=== PATIENT | male | born 1940 | race Caucasian/White ===

== ENCOUNTER → 2016-06-01 | Outpatient (CLI) | payer OTHER ==
[~2016-06-01] MED LIST: ACET-1311 PO; ALLO300T2 PO; ASPI81TA28 PO; CARB25TA12 PO; CHOL2000 PO; CLON0.5T3 PO; CMD5 PO; CYAN100020 PO; DOCU100C31 PO; GABA-113 PO; GLC/500 PO; LDDP5 TD; LSN25 PO; MCTP EXT; METO1TAB55 PO; ONDA4TAB46 PO; POLY1POW2 PO; SERT25TA PO; SNM/25100 PO; TRIA37.5 PO; TRIATAB3 PO; VLTG EXT; ZNTT/150 PO
[2016-06-01 19:53] LABS: BLOOD UREA NITROGEN 17 mg/dl (7-18); BUN/CREATININE RATIO 13.9 (10-20); CALCIUM 9.4 mg/dl (8.5-10.1); CARBON DIOXIDE 25 mmol/L (21-32); CHLORIDE 103 mmol/L (98-107); GLUCOSE 113 mg/dl (70-99); POTASSIUM 3.9 mmol/L (3.5-5.1); SODIUM 139 mmol/L (136-145); URIC ACID 4.6 mg/dl (2.6-7.2)
== END | disposition home or self-care (01) ==
LOC: C.LABPVFM 15:18
PROVIDERS: ATTEND Family Medicine
DX: M10.9 Gout, unspecified (principal)

== ENCOUNTER 2016-07-11 09:01 | Inpatient (IN) | payer OTHER ==
[~2016-07-11] VITALS: Ht 172.7 cm; Wt 99.6 kg
[~2016-07-11 09:01] MED LIST changes: -ACET-1311 PO; -ASPI81TA28 PO; -CARB25TA12 PO; -CHOL2000 PO; -CMD5 PO; -CYAN100020 PO; -LDDP5 TD; -LSN25 PO; -MCTP EXT; -METO1TAB55 PO; -ONDA4TAB46 PO; -POLY1POW2 PO; -SERT25TA PO; -SNM/25100 PO; -TRIATAB3 PO; -VLTG EXT; -ZNTT/150 PO
[2016-07-11] MEDS ORDERED: SODIUM CHLORIDE 0.9% 1000ML 1,000 ML IV SCH (09:27)
--- NOTE | 2016-07-11 09:47 | EMERGENCY ROOM VISIT NOTE ---
History Report prepared by Evelia: Shawn Mariscal Under the Supervision of: Dr. Gaurav Espana D.O. First contact with patient: 09:20 Chief Complaint: NEURO SYMPTOMS Stated Complaint: NUMBNESS IN LEGS,ARMS,HANDS, FALLS Nursing Triage Summary: pt reports since last night bilat leg weakness and feeling numb. pt reports last night also his arm were numb and weak but "my arms are getting better." History of Present Illness The patient is a 75 year old male who presents to the Emergency Room with complaints of worsening generalized weakness that started around 0230 last night. The patient's extremities are all weak, but his arms appear to be improving. The patient's daughter notes that his bilateral legs appear slightly more swollen. The patient denies any fevers, headaches, cough, chest pain, shortness of breath, nausea, vomiting, or abdominal pain. He has not had any recent illnesses. He denies any stroke history. The patient is normally able to ambulate, but was unable this morning secondary to weakness. He states that he has been eating and drinking okay. The patient appears to be at baseline mental status, as per daughter. She notes that he has had some falls recently. He has been going to PT since an accident in March with his last appointment being yesterday. 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 Source of History: patient, family Onset: 0230 last night Position: other (generalized) Quality: other (weakness) Timing: worsening Associated Symptoms: No SOB, No abdominal pain, No chest pain, No cough, No fevers, No headache, No nausea, No vomiting Review of Systems See HPI for pertinent positives & negatives. A total of 10 systems reviewed and were otherwise negative. Past Medical & Surgical Medical Problems: (1) BENIGN HYPERTENSION (2) DIAB W KETOACIDOSIS, TYPE II OR UNSPEC TYPE, UNCONTROLLED (3) DIVERTICULOSIS COLON (W/O MENT OF HEMORRHAGE) (4) GOUT NOS (5) IDIO PERIPH NEURPTHY NOS (6) MIXED HYPERLIPIDEMIA Family History Diabetes mellitus FH: breast cancer Social History Smoking Status: Former Smoker Alcohol Use: none Drug Use: none Marital Status: Housing Status: lives with significant other Occupation Status: retired Current/Historical Medications Scheduled Allopurinol (Zyloprim), 300 MG PO DAILY Aspirin (Aspirin Ec), 81 MG PO DAILY Cholecalciferol (Vitamin D3), 2,000 UNITS PO DAILY Gabapentin (Neurontin), 300 MG PO QID Metformin Hcl (Glucophage), 500 MG PO BID Polyethylene Glycol 3350 (Bulk (Polyethylene Glycol 3350), 17 GM PO BID Triamterene/Hctz (Dyazide 37.5MG/25MG), 0.5 TAB PO DAILY Scheduled PRN Clonazepam (Klonopin), 0.25-0.5 MG PO HS PRN for Sleep Allergies Coded Allergies: No Known Allergies (Verified , 07/11/16) Physical Exam Vital Signs Date Time Temp Pulse Resp B/P Pulse Ox O2 Delivery O2 Flow Rate FiO2 07/11/16 12:15 80 20 155/71 97 Room Air 07/11/16 11:39 97 Room Air 07/11/16 11:01 68 18 102/61 97 Room Air 07/11/16 10:09 79 20 126/67 95 Room Air 07/11/16 09:35 96 Room Air 07/11/16 09:29 86 07/11/16 09:22 83 20 137/69 96 Room Air 07/11/16 09:07 37.1 86 18 113/68 96 Room Air Physical Exam GENERAL: Patient is awake and somewhat listless appearing, does not appear to be in pain or anxious. EYES: The conjunctivae are clear. The pupils are round and reactive. EARS, NOSE, MOUTH AND THROAT: The nose is without any evidence of any deformity. Mucous membranes are moist tongue is midline NECK: The neck is nontender and supple. RESPIRATORY: Scattered rhonchi noted throughout, no tachypnea or pursed lip breathing. CARDIOVASCULAR: Regular rate and rhythm noted there no murmurs rubs or gallops normal S1 normal S2 GASTROINTESTINAL: The abdomen is soft. Bowel sounds are present in all quadrants. Abdomen is nontender MUSCULOSKELETAL/EXTREMITIES: There is no evidence of gross deformity full range of motion is noted in the hips and shoulders SKIN: There is no obvious evidence of any rash. There are no petechiae, pallor or cyanosis noted. Trace pedal edema bilaterally. NEUROLOGIC: Patient is oriented x 3, strength is diminished but symmetric bilaterally, no drift in upper extremities, able to hold legs off of bed for 5 seconds. Medical Decision & Procedures ER Provider Diagnostic Interpretation: Radiology results as stated below per my review and radiologist interpretation: CHEST ONE VIEW PORTABLE CLINICAL HISTORY: Stroke dyspnea COMPARISON STUDY: 07/09/2015 FINDINGS: Minimal atelectasis left base. Lungs otherwise appear clear. Heart top limits normal in size. IMPRESSION: Minimal platelike atelectasis left base. Otherwise negative study Electronically signed by: Tom Auguste M.D. 07/11/2016 10:20 AM Dictated Date/Time: 07/11/2016 10:[address] CT DOSE: 998.18 mGy.cm HISTORY: Mental status change Stroke TECHNIQUE: Multiaxial CT images of the head were performed without the use of intravenous contrast. Comparison: None. Findings: The paranasal sinuses and mastoid air cells are clear. The calvarium and skull base are intact. The ventricles and sulci are within normal limits. There is no mass, hematoma, midline shift, or acute infarct. Impression: No acute intracranial abnormality. Electronically signed by: Tom Auguste M.D. 07/11/2016 10:06 AM Dictated Date/Time: 07/11/2016 10:01 AM Laboratory Results 07/11/16 09:48 Red Blood Count 4.64, Mean Corpuscular Volume 92.7, Mean Corpuscular Hemoglobin 31.5, Mean Corpuscular Hemoglobin Concent 34.0, Mean Platelet Volume 10.4, Neutrophils (%) (Auto) 68.9, Lymphocytes (%) (Auto) 11.1, Monocytes (%) (Auto) 19.3, Eosinophils (%) (Auto) 0.2, Basophils (%) (Auto) 0.2, Neutrophils # (Auto ) 4.29, Lymphocytes # (Auto) 0.69, Monocytes # (Auto) 1.20, Eosinophils # (Auto ) 0.01, Basophils # (Auto) 0.01 07/11/16 09:48 Test 07/11/16 09:48 07/11/16 10:07 White Blood Count 6.22 K/uL (4.8-10.8) Red Blood Count 4.64 M/uL (4.7-6.1) Hemoglobin 14.6 g/dL (14.0-18.0) Hematocrit 43.0 % (42-52) Mean Corpuscular Volume 92.7 fL (80-100) Mean Corpuscular Hemoglobin 31.5 pg (25-34) Mean Corpuscular Hemoglobin Concent 34.0 g/dl (32-36) Platelet Count 184 K/uL (130-400) Mean Platelet Volume 10.4 fL (7.4-10.4) Neutrophils (%) (Auto) 68.9 % Lymphocytes (%) (Auto) 11.1 % Monocytes (%) (Auto) 19.3 % Eosinophils (%) (Auto) 0.2 % Basophils (%) (Auto) 0.2 % Neutrophils # (Auto) 4.29 K/uL (1.4-6.5) Lymphocytes # (Auto) 0.69 K/uL (1.2-3.4) Monocytes # (Auto) 1.20 K/uL (0.11-0.59) Eosinophils # (Auto) 0.01 K/uL (0-0.5) Basophils # (Auto) 0.01 K/uL (0-0.2) RDW Standard Deviation 46.6 fL (36.4-46.3) RDW Coefficient of Variation 13.7 % (11.5-14.5) Immature Granulocyte % (Auto) 0.3 % Immature Granulocyte # (Auto) 0.02 K/uL (0.00-0.02) Erythrocyte Sedimentation Rate 13 mm/hr (0-14) Prothrombin Time 11.9 SECONDS (9.0-12.0) Prothromb Time International Ratio 1.1 (0.9-1.1) Activated Partial Thromboplast Time 26.7 SECONDS (21.0-31.0) Partial Thromboplastin Ratio 1.0 Anion Gap 11.0 mmol/L (3-11) Est Creatinine Clear Calc Drug Dose 56.0 ml/min Estimated GFR () 61.9 Estimated GFR (Non- 53.4 BUN/Creatinine Ratio 10.1 (10-20) Calcium Level 8.8 mg/dl (8.5-10.1) Magnesium Level 1.9 mg/dl (1.8-2.4) Total Bilirubin 0.7 mg/dl (0.2-1) Direct Bilirubin 0.2 mg/dl (0-0.2) Aspartate Amino Transf (AST/SGOT) 56 U/L (15-37) Alanine Aminotransferase (ALT/SGPT) 24 U/L (12-78) Alkaline Phosphatase 99 U/L (45-117) Total Creatine Kinase 2844 U/L (39-308) Creatine Kinase MB 13.1 ng/ml (0.5-3.6) Creatine Kinase MB Ratio 0.5 (0-3.0) Troponin I < 0.015 ng/ml (0-0.045) C-Reactive Protein 0.87 mg/dl (0-0.29) Total Protein 7.2 gm/dl (6.4-8.2) Albumin 3.5 gm/dl (3.4-5.0) Urine Color YELLOW Urine Appearance CLEAR (CLEAR) Urine pH 6.0 (4.5-7.5) Urine Specific Lawn 1.007 (1.000-1.030) Urine Protein NEG (NEG) Urine Glucose (UA) NEG (NEG) Urine Ketones NEG (NEG) Urine Occult Blood 3+ (NEG) Urine Nitrite NEG (NEG) Urine Bilirubin NEG (NEG) Urine Urobilinogen NEG (NEG) Urine Leukocyte Esterase TRACE (NEG) Urine WBC (Auto) 1-5 /hpf (0-5) Urine RBC (Auto) 0-4 /hpf (0-4) Urine Hyaline Casts (Auto) 0 /lpf (0-5) Urine Epithelial Cells (Auto) 5-10 /lpf (0-5) Urine Bacteria (Auto) NEG (NEG) Urine Opiates Screen NEG (NEG) Urine Methadone, Qualitative NEG (NEG) Urine Barbiturates NEG (NEG) Urine Phencyclidine (PCP) Level NEG (NEG) Ur Amphetamine/Methamphetamine NEG (NEG) MDMA (Ecstasy) Screen NEG (NEG) Urine Benzodiazepines Screen NEG (NEG) Urine Cocaine Metabolite NEG (NEG) Urine Marijuana (THC) NEG (NEG) Laboratory results per my review. Medications Administered Medications (Trade) Dose Ordered Sig/[place] Route Start Time Stop Time Status Last Admin Dose Admin Sodium Chloride 1,000 ml @ 50 mls/hr Q20H IV 07/11/16 09:27 07/11/16 12:38 DC 07/11/16 10:11 50 MLS/HR Sodium Chloride 1,000 ml @ 999 mls/hr Q1H1M STAT IV 07/11/16 11:18 07/11/16 12:18 DC 07/11/16 11:24 999 MLS/HR Sodium Chloride (Nss 1000ml) 1,000 ml @ 125 mls/hr Q8H IV 07/11/16 12:30 08/10/16 12:29 07/11/16 14:44 125 MLS/HR ECG Indication: weakness Rate (beats per minute): 81 Rhythm: normal sinus Findings: no acute ischemic change, other (LVH noted by voltage criteria) Comparison ECG Date: 2015 Change: no significant change ED Course 09: The patient was evaluated in room B11b. A complete history and physical examination were performed. 09: NSS 1000 ml @ 50 mls/hr. 111: Discussed the [facility] The patient will be evaluated. 1118: NSS 1000 ml @ 999 mls/hr. 1121: Updated the patient. He verbalized agreement of the plan. Medical Decision Prior records/ancillary studies reviewed and summarized above. Nursing notes reviewed. Additional history obtained from daughter. The patient's history was concerning for weakness. Differential diagnosis: Etiologies such as metabolic, infection, hypo/hyperglycemia, electrolyte abnormalities, cardiac sources, intracerebral event, toxicologic, neurologic, as well as others were entertained. The patient is a 75-year-old male who presented to the emergency department for an evaluation of generalized weakness. The patient the patient did not have any definite focal neurologic deficits but he was certainly week in both lower extremities. The patient was not found have an acute abnormality on CT the head was found have elevated CPK consistent with rhabdomyolysis on laboratory studies. The patient was treated with IV fluids. He was reevaluated multiple times. I discussed the patient's laboratory and radiographic studies with him and his family. I also discussed his case with the on-call [facility] group. They have agreed to evaluate the patient in the emergency department for further management and disposition. Consults Time Called: 1111 Consulting Physician: Dr. [facility]. Returned Call: [phone]: Discussed the case with Dr[facility]. The patient will be evaluated. Impression Primary Impression: Weakness Additional Impression: Rhabdomyolysis Scribe Attestation The scribe's documentation has been prepared under my direction and personally reviewed by me in its entirety. I confirm that the note above accurately reflects all work, treatment, procedures, and medical decision making performed by me. Departure Information Dispostion Being Evaluated By Hospitalist Referrals John Rayo M.D. (PCP) Patient Instructions [facility] Problem Qualifiers
[2016-07-11 09:55] LABS: BASO % 0.2 %; BASO ABS # 0.01 K/uL (0-0.2); COMPLETE YES; EOS % 0.2 %; IG% 0.3 %; LYMPH % 11.1 %; LYMPH ABS # 0.69 K/uL (1.2-3.4); MEAN CELL VOLUME 92.7 fL (80-100); MEAN CORPUSCULAR HEMOGLOBIN 31.5 pg (25-34); MEAN PLATELET VOLUME 10.4 fL (7.4-10.4); MONO % 19.3 %; NEUT % 68.9 %; PLATELET COUNT 184 K/uL (130-400); RED BLOOD COUNT 4.64 M/uL (4.7-6.1); WHITE BLOOD COUNT 6.22 K/uL (4.8-10.8)
[2016-07-11] MEDS ORDERED: ASPI81TA28 PO (09:55)
[2016-07-11] MEDS ORDERED: POLY1POW2 PO (09:55)
[2016-07-11] MEDS ORDERED: CHOL2000 PO (09:55)
[2016-07-11 10:06] LABS: INR 1.1 (0.9-1.1); PROTHROMBIN TIME (PATIENT) 11.9 SECONDS (9.0-12.0)
--- NOTE | 2016-07-11 10:07 | DIAGNOSTIC IMAGING REPORT ---
HEAD CT NONCONTRAST CT DOSE: 998.18 mGy.cm HISTORY: Mental status change Stroke TECHNIQUE: Multiaxial CT images of the head were performed without the use of intravenous contrast. Comparison: None. Findings: The paranasal sinuses and mastoid air cells are clear. The calvarium and skull base are intact. The ventricles and sulci are within normal limits. There is no mass, hematoma, midline shift, or acute infarct. Impression: No acute intracranial abnormality. Electronically signed by: Tom Auguste M.D. 07/11/2016 10:06 AM Dictated Date/Time: 07/11/2016 10:01 AM
--- NOTE | 2016-07-11 10:21 | DIAGNOSTIC IMAGING REPORT ---
CHEST ONE VIEW PORTABLE CLINICAL HISTORY: Stroke dyspnea COMPARISON STUDY: 07/09/2015 FINDINGS: Minimal atelectasis left base. Lungs otherwise appear clear. Heart top limits normal in size. IMPRESSION: Minimal platelike atelectasis left base. Otherwise negative study Electronically signed by: Tom Auguste M.D. 07/11/2016 10:20 AM Dictated Date/Time: 07/11/2016 10:19 AM
[2016-07-11 10:24] LABS: ALT/SGPT 24 U/L (12-78); BLOOD UREA NITROGEN 13 mg/dl (7-18); BUN/CREATININE RATIO 10.1 (10-20); CALCIUM 8.8 mg/dl (8.5-10.1); CARBON DIOXIDE 24 mmol/L (21-32); CHLORIDE 102 mmol/L (98-107); GLUCOSE 136 mg/dl (70-99)
[2016-07-11 10:36] LABS: ALKALINE PHOSPHATASE 99 U/L (45-117)
[2016-07-11 10:42] LABS: POTASSIUM 3.9 mmol/L (3.5-5.1); SODIUM 137 mmol/L (136-145)
[2016-07-11 10:52] LABS: URINE APPEARANCE CLEAR (CLEAR); URINE BILIRUBIN NEG (NEG); URINE COLOR YELLOW; URINE NITRITE NEG (NEG); URINE SPECIFIC GRAVITY 1.007 (1.000-1.030); UROBILINOGEN NEG (NEG)
[2016-07-11 10:55] LABS: MANUAL MICROSCOPIC REQUIRED? NO; REVIEW REQ? NO
[2016-07-11 11:02] LABS: AST/SGOT 56 U/L (15-37); CKMB/CK RATIO 0.5 (0-3.0); MAGNESIUM 1.9 mg/dl (1.8-2.4)
[2016-07-11 11:09] LABS: BENZODIAZEPINE, URINE NEG (NEG); COCAINE,URINE NEG (NEG); PHENCYCLIDINE, URINE NEG (NEG)
[2016-07-11] MEDS ORDERED: SODIUM CHLORIDE 0.9% 1000ML 1,000 ML IV STA (11:18)
[2016-07-11 11:39] VITALS: O2SAT 97; Ht 172.7 cm; Wt 99.6 kg
[2016-07-11] MEDS ORDERED: MAGNESIUM HYDROXIDE SUSP 30 ML UDC PO PRN (12:15)
[2016-07-11] MEDS ORDERED: ACETAMINOPHEN 325 MG TAB PO PRN (12:15)
[2016-07-11] MEDS ORDERED: GLUCOSE 40% GEL 15 GM TUBE PO PRN (12:45)
[2016-07-11] MEDS ORDERED: HydrALAZINE HCL 20 MG/ML VIAL IV. PRN (12:45)
[2016-07-11] MEDS ORDERED: GLUCAGON FOR INJ 1 MG VIAL SQ PRN (12:45)
[2016-07-11] MEDS ORDERED: GLUCOSE 10 TABS/TUBE PO PRN (12:45)
[2016-07-11] MEDS ORDERED: DEXTROSE 50% 50 ML SYR IV PRN (12:45)
--- NOTE | 2016-07-11 12:54 | History and Physical ---
History & Physical Date & Time of Service: Jul 11, 2016 at 12:48 Chief Complaint: Numbness In Legs,Arms,Hands, Falls Primary Care Physician: John Rayo M.D. History of Present Illness Source: patient, family Mr. Montalvo is a 75 y/o male with PMHx of T2DM with Diabetic Neuropathy, HTN, Gout , DVT with PE (2013) off anticoagulation who presents to the ED c/o generalized arm and leg weakness and numbness/tingling that started at 0230. Patient reports that he does have chronic numbness/tingling of lower extremities due to his diabetes but is normally not this severe in which it affects ambulation. He has participated in outpatient PT twice a week and was fine during yesterday's session. He reports that he ambulates without assistive devices at home. At 0230 , he tried to walk but due to the numbness he lost his balance and fell. He was able to get himself up. He denies lightheadedness/dizziness prior to the fall, hitting his head, or LOC. He then reports another fall that occurred at approx. 0630 due to the same circumstances. However this time he reports he was lying on the ground for approx. 10-20 minutes. Prior to today, he reports a near fall yesterday but fell into his son's truck and didn't hit the ground. Prior to this he hasn't fallen in 6 or more months. Daughter reports lower extremities are more swollen however patient denies this. He denies fever/chills, CP, palpitations, SOB, N/V, abdominal pain, dysuria, constipation/diarrhea, or melena/hematochezia. In the ED, CT was negative for acute intracranial findings. CXR without evidence of consolidation. He is afebrile and normotensive. Labs largely unremarkable except for CK of 2844. UA with evidence of 3+ occult blood but negative for bacteria. He was hydrated with NSS 1 L bolus then 1 L at 50 mL/hr. He will be admitted to Med/Surg for Rhadomyolysis. Past Medical/Surgical History Medical Problems: (1) BENIGN HYPERTENSION Status: Chronic (2) DIAB W KETOACIDOSIS, TYPE II OR UNSPEC TYPE, UNCONTROLLED Status: Chronic (3) DIVERTICULOSIS COLON (W/O MENT OF HEMORRHAGE) Status: Chronic (4) GOUT NOS Status: Chronic (5) IDIO PERIPH NEURPTHY NOS Status: Chronic (6) MIXED HYPERLIPIDEMIA Status: Chronic Family History Diabetes mellitus FH: breast cancer Social History Smoking Status: Former Smoker Drug Use: none Marital Status: Occupational Status: retired Multi-Drug Resistant Organisms History of MDRO: No Allergies Coded Allergies: No Known Allergies (Verified , 07/11/16) Home Medications Scheduled Allopurinol (Zyloprim), 300 MG PO DAILY Aspirin (Aspirin Ec), 81 MG PO DAILY Cholecalciferol (Vitamin D3), 2,000 UNITS PO DAILY Gabapentin (Neurontin), 300 MG PO QID Metformin Hcl (Glucophage), 500 MG PO BID Polyethylene Glycol 3350 (Bulk (Polyethylene Glycol 3350), 17 GM PO BID Triamterene/Hctz (Dyazide 37.5MG/25MG), 0.5 TAB PO DAILY Scheduled PRN Clonazepam (Klonopin), 0.25-0.5 MG PO HS PRN for Sleep Review of Systems Constitutional: No chills, No fever Eyes: No worsening of vision ENT: No nasal symptoms, No sore throat, No trouble swallowing Respiratory: No cough, No shortness of breath Cardiovascular: No chest pain Abdomen: No constipation, No diarrhea, No nausea, No pain, No vomiting Musculoskeletal: No calf pain, No swelling Genitourinary - Male: No dysuria Neurologic: + balance problems, + numbness/tingling (upper and lower extremities bilat; upper extremities improving), + weakness (generalized UE and LE B/L with improvement in UE B/L) Endocrine: No fatigue Integumentary: + problem reported (multiple red superficial abrasions of upper extremities; small abrasion of L forehead patient reports is from CPAP), No rash Physical Exam Vital Signs Date Time Temp Pulse Resp B/P Pulse Ox O2 Delivery O2 Flow Rate FiO2 07/11/16 12:15 80 20 155/71 97 Room Air 07/11/16 11:39 97 Room Air 07/11/16 11:01 68 18 102/61 97 Room Air 07/11/16 10:09 79 20 126/67 95 Room Air 07/11/16 09:35 96 Room Air 07/11/16 09:29 86 07/11/16 09:22 83 20 137/69 96 Room Air 07/11/16 09:07 37.1 86 18 113/68 96 Room Air General Appearance: WD/WN, no apparent distress, + pertinent finding (mask- like face) Eyes: PERRL, EOMI, sclerae normal, + pertinent finding (Ptosis of L eye) ENT: hearing grossly normal Neck: supple, no adenopathy, no JVD, trachea midline Respiratory/Chest: lungs clear, normal breath sounds, no respiratory distress, no accessory muscle use Cardiovascular: regular rate, rhythm, no gallop, no murmur Abdomen/GI: normal bowel sounds, non tender, soft, + distended Back: normal inspection, no CVA tenderness Extremities/Musculoskelatal: no calf tenderness, + swelling (trace non-pitting edema of ankles) Neurologic/Psych: alert, oriented x 3, + pertinent finding (diffuse muscle weakness of upper and lower extremities but equal B/L; facial movements symmetrical) Skin: normal color, warm/dry Diagnostics Laboratory Results Results Past 24 Hours Test 07/11/16 09:48 07/11/16 10:06 07/11/16 10:07 07/11/16 12:13 Range/Units White Blood Count 6.22 4.8-10.8 K/uL Red Blood Count 4.64 4.7-6.1 M/uL Hemoglobin 14.6 14.0-18.0 g/dL Hematocrit 43.0 42-52 % Mean Corpuscular Volume 92.7 80-100 fL Mean Corpuscular Hemoglobin 31.5 25-34 pg Mean Corpuscular Hemoglobin Concent 34.0 32-36 g/dl Platelet Count 184 130-400 K/uL Mean Platelet Volume 10.4 7.4-10.4 fL Neutrophils (%) (Auto) 68.9 % Lymphocytes (%) (Auto) 11.1 % Monocytes (%) (Auto) 19.3 % Eosinophils (%) (Auto) 0.2 % Basophils (%) (Auto) 0.2 % Neutrophils # (Auto) 4.29 1.4-6.5 K/uL Lymphocytes # (Auto) 0.69 1.2-3.4 K/uL Monocytes # (Auto) 1.20 0.11-0.59 K/uL Eosinophils # (Auto) 0.01 0-0.5 K/uL Basophils # (Auto) 0.01 0-0.2 K/uL RDW Standard Deviation 46.6 36.4-46.3 fL RDW Coefficient of Variation 13.7 11.5-14.5 % Immature Granulocyte % (Auto) 0.3 % Immature Granulocyte # (Auto) 0.02 0.00-0.02 K/uL Prothrombin Time 11.9 9.0-12.0 SECONDS Prothromb Time International Ratio 1.1 0.9-1.1 Activated Partial Thromboplast Time 26.7 21.0-31.0 SECONDS Partial Thromboplastin Ratio 1.0 Sodium Level 137 136-145 mmol/L Potassium Level 3.9 3.5-5.1 mmol/L Chloride Level 102 98-107 mmol/L Carbon Dioxide Level 24 21-32 mmol/L Anion Gap 11.0 3-11 mmol/L Blood Urea Nitrogen 13 7-18 mg/dl Creatinine 1.30 0.60-1.40 mg/dl Est Creatinine Clear Calc Drug Dose 56.0 ml/min Estimated GFR () 61.9 Estimated GFR (Non- 53.4 BUN/Creatinine Ratio 10.1 10-20 Random Glucose 136 70-99 mg/dl Calcium Level 8.8 8.5-10.1 mg/dl Magnesium Level 1.9 1.8-2.4 mg/dl Total Bilirubin 0.7 0.2-1 mg/dl Direct Bilirubin 0.2 0-0.2 mg/dl Aspartate Amino Transf (AST/SGOT) 56 15-37 U/L Alanine Aminotransferase (ALT/SGPT) 24 12-78 U/L Alkaline Phosphatase 99 45-117 U/L Total Creatine Kinase 2844 39-308 U/L Creatine Kinase MB 13.1 0.5-3.6 ng/ml Creatine Kinase MB Ratio 0.5 0-3.0 Troponin I < 0.015 0-0.045 ng/ml Total Protein 7.2 6.4-8.2 gm/dl Albumin 3.5 3.4-5.0 gm/dl Bedside Glucose 117 70-99 mg/dl Urine Color YELLOW Urine Appearance CLEAR CLEAR Urine pH 6.0 4.5-7.5 Urine Specific [place] 1.007 1.000-1.030 Urine Protein NEG NEG Urine Glucose (UA) NEG NEG Urine Ketones NEG NEG Urine Occult Blood 3+ NEG Urine Nitrite NEG NEG Urine Bilirubin NEG NEG Urine Urobilinogen NEG NEG Urine Leukocyte Esterase TRACE NEG Urine WBC (Auto) 1-5 0-5 /hpf Urine RBC (Auto) 0-4 0-4 /hpf Urine Hyaline Casts (Auto) 0 0-5 /lpf Urine Epithelial Cells (Auto) 5-10 0-5 /lpf Urine Bacteria (Auto) NEG NEG Urine Opiates Screen NEG NEG Urine Methadone, Qualitative NEG NEG Urine Barbiturates NEG NEG Urine Phencyclidine (PCP) Level NEG NEG Ur Amphetamine/Methamphetamine NEG NEG MDMA (Ecstasy) Screen NEG NEG Urine Benzodiazepines Screen NEG NEG Urine Cocaine Metabolite NEG NEG Urine Marijuana (THC) NEG NEG Diagnostic Radiology HEAD CT NONCONTRAST CT DOSE: 998.18 mGy.cm HISTORY: Mental status change Stroke TECHNIQUE: Multiaxial CT images of the head were performed without the use of intravenous contrast. Comparison: None. Findings: The paranasal sinuses and mastoid air cells are clear. The calvarium and skull base are intact. The ventricles and sulci are within normal limits. There is no mass, hematoma, midline shift, or acute infarct. Impression: No acute intracranial abnormality. CHEST ONE VIEW PORTABLE CLINICAL HISTORY: Stroke dyspnea COMPARISON STUDY: 07/09/2015 FINDINGS: Minimal atelectasis left base. Lungs otherwise appear clear. Heart top limits normal in size. IMPRESSION: Minimal platelike atelectasis left base. Otherwise negative study Impression Assessment and Plan Mr. Montalvo is a 75 y/o male with PMHx of T2DM with Diabetic Neuropathy, HTN, Gout , LEN, DVT with PE (2013) off anticoagulation who presents to the ED c/o generalized arm and leg weakness and numbness/tingling that started at 0230. In the ED, CT was negative for acute intracranial findings. CXR without evidence of consolidation. He is afebrile and normotensive. Labs largely unremarkable except for CK of 2844. UA with evidence of 3+ occult blood but negative for bacteria. He was hydrated with NSS 1 L bolus then 1 L at 50 mL/hr. He will be admitted to Med/Surg for Rhadomyolysis. Rhabdomyolysis: - NSS at 125 mL/hr - Trend CK Generalized Weakness and Recent Falls: - This may be multifactorial given H/O neuropathy and current rhabdomyolysis. No focal deficits appreciated just generalized weakness and will not pursue further neurological imaging at this time. Patient is afebrile without leukocytosis. Obvious source of infection not appreciated. - Will obtain a B12 level, ESR, and CRP - PT/OT Evaluations T2DM with Diabetic Neuropathy: A1c 5.8 (February 2016) - Repeat A1c - Hold Metformin - SSI - goal 120-160 and correction factor 40 - Gabapentin 300 mg QID HTN: - Hold Dyazide and use Hydralazine PRN Gout: - Allopurinol 300 mg daily LEN: - Patient may use own CPAP DVT Prophylaxis: - Lovenox 40 mg SC daily Code Status: - FULL RESUSCITATION Disposition: - Lives at home with son and reports no current needs at home Level of Care Med/Surg Advanced Directives Existing Living Will: No Existing Power of Biosecurity Officer: No Resuscitation Status FULL RESUSCITATION VTE Prophylaxis VTE Risk Assessment Done? Y/N: Yes Risk Level: Moderate Given or contraindicated: Enoxaparin (Lovenox)SQ Reviewed: Pt Seen/Exam by Me, RN Notes, HO Notes, Prior Records, Labs, RAD, EKG History I agree with PA H&P with some modifications as below Mr. Montalvo is a 75 y/o male with PMHx of T2DM with Diabetic Neuropathy, HTN, Gout , LEN, DVT with PE (2013) off anticoagulation who presents to the ED c/o generalized arm and leg weakness and numbness/tingling that started at 0230. In the ED, CT was negative for acute intracranial findings. CXR without evidence of consolidation. He is afebrile and normotensive. Labs largely unremarkable except for CK of 2844. UA with evidence of 3+ occult blood but negative for bacteria. He was hydrated with NSS 1 L bolus then 1 L at 50 mL/hr. Constitutional: denies: chills Respiratory: negative: cough, short of breath Cardiovascular: denies chest pain Gastrointestinal/Abdominal: negative: abdominal pain Genitourinary: negative discharge Musculoskeletal: negative: back pain Skin: negative: change in color Neurological/Psych: negative: anxiety Hematologic/Lymphatic: negative: anemia General Appearance: WD/WN, no apparent distress Eye Exam: bilateral eye normal inspection Ears, Nose, Throat: hearing grossly normal, pharynx normal Neck: non-tender, normal inspection Respiratory: lungs clear, normal breath sounds Cardiovascular: regular rate, rhythm, no gallop Gastrointestinal: non tender, soft Extremities: normal inspection Neurologic/Psychiatric: no motor/sensory deficits, normal mood/affect Skin Characteristics: normal color Assessment/Plan A 75 y/o male with PMHx of T2DM with Diabetic Neuropathy, HTN, Gout, LEN, DVT with PE (2013) off anticoagulation who presents to the ED c/o generalized arm and leg weakness and numbness/tingling that started at 0230. In the ED, CT was negative for acute intracranial findings. CXR without evidence of consolidation. He is afebrile and normotensive. Labs largely unremarkable except for CK of 2844. UA with evidence of 3+ occult blood but negative for bacteria. Rhabdomyolysis: cont NSS at 125 mL/hr Trend CPK Generalized Weakness and Recent Falls: his may be multifactorial given hx diabetic neuropathy and current rhabdomyolysis. check B12 level, ESR, and CRP PT/OT Evaluations T2DM with Diabetic Neuropathy: A1c 5.8 (February 2016) check A1c Hold Metformin SSI - goal 120-160 and correction factor 40 Gabapentin 300 mg QID HTN: Hold Dyazide and use Hydralazine PRN Gout: Allopurinol 300 mg daily LEN: Patient may use own CPAP DVT Prophylaxis: Lovenox 40 mg SC daily Code Status: FULL RESUSCITATION case discussed with Cristel Garcia time spent 45 min
[2016-07-11] MEDS: SODIUM CHLORIDE 0.9% 1000ML 1,000 ML IV SCH ×2 (14:44→21:10)
[2016-07-11 14:45] VITALS: BP 161/72; PULSE 95; TEMP 37; O2SAT 96
[2016-07-11 15:22] VITALS: BP 127/68; PULSE 80; TEMP 36.5; O2SAT 96
[2016-07-11 16:00] VITALS: O2SAT 96
[2016-07-11] MEDS: INSULIN ASPART 100 UNITS/ML 3 ML PEN SC SCH ×2 (17:53→21:00)
[2016-07-11] MEDS: GABAPENTIN 300 MG CAP PO SCH ×2 (17:54→21:10)
[2016-07-11] MEDS ORDERED: NURSING DECISION MEDICATION ORDER SCH (19:45)
[2016-07-11] MEDS ORDERED: MICONAZOLE NITRATE POWDER 43 GM EXT PRN (20:15)
[2016-07-11 22:50] VITALS: BP 166/76; PULSE 88; TEMP 37.3; O2SAT 93
[2016-07-12] VITALS (8 sets, daily range): BP systolic 144–169; BP diastolic 73–89; PULSE 70–88; TEMP 36.7–37.2; O2SAT 94–96
[2016-07-12] MEDS: SODIUM CHLORIDE 0.9% 1000ML 1,000 ML IV SCH ×3 (04:42→22:09)
[2016-07-12 06:41] LABS: HEMATOCRIT 42.9 % (42-52); MEAN CELL VOLUME 93.1 fL (80-100); MEAN CORPUSCULAR HGB CONC 33.3 g/dl (32-36); MEAN PLATELET VOLUME 10.6 fL (7.4-10.4); PLATELET COUNT 177 K/uL (130-400); RED BLOOD COUNT 4.61 M/uL (4.7-6.1); WHITE BLOOD COUNT 5.54 K/uL (4.8-10.8)
[2016-07-12 06:59] LABS: BUN/CREATININE RATIO 9.9 (10-20); CALCIUM 8.3 mg/dl (8.5-10.1); CREATININE 1.1 mg/dl (0.60-1.40); POTASSIUM 3.6 mmol/L (3.5-5.1)
[2016-07-12 07:51] LABS: ESTIMATED AVERAGE GLUCOSE 123 mg/dl; HA1C FLAG Normal (Normal)
[2016-07-12] MEDS: GABAPENTIN 300 MG CAP PO SCH ×4 (08:19→22:07)
[2016-07-12] MEDS: ALLOPURINOL 300 MG TAB PO SCH (08:20)
[2016-07-12] MEDS: ASPIRIN 81 MG ECTAB PO SCH (08:20)
[2016-07-12] MEDS: INSULIN ASPART 100 UNITS/ML 3 ML PEN SC SCH ×4 (08:21→21:00)
[2016-07-12] MEDS: ENOXAPARIN 40 MG/0.4 ML SYR SQ SCH (08:21)
[2016-07-12] MEDS: POLYETHYLENE (MIRALAX) 17 GM PACK PO PRN (14:54)
--- NOTE | 2016-07-12 20:40 | DIAGNOSTIC IMAGING REPORT ---
RIGHT ELBOW 3 VIEWS HISTORY: Fall. Right elbow laceration. COMPARISON: None. FINDINGS: Questionable cortical step-off at the radial head on the lateral view is likely old given the associated cortication. There is no definite acute fracture or dislocation. No elbow effusion. No radiopaque foreign bodies. IMPRESSION: No acute fracture or dislocation within the right elbow. Electronically signed by: Claude Smith M.D. 07/12/2016 8:38 PM Dictated Date/Time: 07/12/2016 8:36 PM
--- NOTE | 2016-07-12 20:43 | DIAGNOSTIC IMAGING REPORT ---
RIBS BILATERAL WITH PA CHEST CLINICAL HISTORY: fall, fractures. Cough. COMPARISON STUDY: Chest 07/11/2016. FINDINGS: Calcified granuloma within the right lower lobe. Otherwise, the lungs are clear. No pleural effusions. No pneumothorax. The heart is stable in size. Old, healed bilateral lower rib fractures. No definite acute rib fractures identified. IMPRESSION: Old, healed bilateral lower rib fractures. No definite acute rib fractures. No pneumothorax. Electronically signed by: Claude Smith M.D. 07/12/2016 8:42 PM Dictated Date/Time: 07/12/2016 8:38 PM
--- NOTE | 2016-07-12 21:35 | Progress Note ---
Subjective Subjective Date of Service: Jul 12, 2016. Pt evaluation today including: conversation w/ patient, physical exam, chart review, review of studies, review of inpatient medication list Notes: had a fall today, did not hit his head, did hit his right elbow and chest Problem List Medical Problems: (1) Rhabdomyolysis Status: Acute (2) Weakness Status: Acute Review of Systems Constitutional: No fever Respiratory: No cough Abdomen: No pain Male : No dysuria Psychiatric: No depression symptoms Endo: No fatigue Physical Exam Vital Signs Vital Signs Past 24 Hours: Date Time Temp Pulse Resp B/P Pulse Ox O2 Delivery O2 Flow Rate FiO2 07/12/16 16:08 72 95 07/12/16 15:15 36.7 70 18 144/73 96 Room Air 07/12/16 08:48 95 Room Air 07/12/16 08:03 36.9 76 16 156/73 95 Room Air 07/12/16 08:00 94 Room Air 07/12/16 07:08 36.9 88 20 169/75 94 Room Air 07/12/16 01:15 Room Air CPAP 07/11/16 22:50 37.3 88 21 166/76 93 Room Air Physical Exam: General Appearance: WD/WN, no apparent distress Eyes: bilateral eyes normal inspection ENT: hearing grossly normal Neck: supple Respiratory/Chest: chest non-tender Cardiovascular: no gallop Abdomen: non tender Extremities: normal inspection Neurologic/Psychiatric: normal mood/affect Skin: normal color Medications Medications: Current Inpatient Medications Medications (Trade) Dose Ordered Sig/Chester Route Start Time Stop Time Status Last Admin Dose Admin Acetaminophen (Tylenol Tab) 650 mg Q4H PRN PO 07/11/16 12:15 08/10/16 12:14 Al Hydrox/Mg Hydrox/Simethicone (Maalox Max Susp) 15 ml Q4H PRN PO 07/11/16 12:15 08/10/16 12:14 Magnesium Hydroxide (Milk Of Magnesia Susp) 30 ml Q6H PRN PO 07/11/16 12:15 08/10/16 12:14 Polyethylene (Miralax Powder Packet) 17 gm DAILY PRN PO 07/11/16 12:15 08/10/16 12:14 07/12/16 14:54 17 GM Ondansetron HCl (Zofran Inj) 4 mg Q6H PRN IV 07/11/16 12:15 08/10/16 12:14 Allopurinol (Zyloprim Tab) 300 mg DAILY PO 07/12/16 09:00 08/11/16 08:59 07/12/16 08:20 300 MG Aspirin (Ecotrin Tab) 81 mg DAILY PO 07/12/16 09:00 08/11/16 08:59 07/12/16 08:20 81 MG Gabapentin 300 mg 300 mg QID PO 07/11/16 17:00 08/10/16 16:59 07/12/16 14:54 300 MG Sodium Chloride (Nss 1000ml) 1,000 ml @ 125 mls/hr Q8H IV 07/11/16 12:30 08/10/16 12:29 07/12/16 14:54 125 MLS/HR Enoxaparin Sodium (Lovenox Inj) 40 mg QAM SQ 07/12/16 09:00 08/11/16 08:59 07/12/16 08:21 40 MG Insulin Aspart (novoLOG ASPART) SLIDING SCALE G... ACHS SC 07/11/16 16:30 08/10/16 16:29 Glucose (Glucose 40% Gel) 15-30 GRAMS 15 GRAMS... UD PRN PO 07/11/16 12:45 08/10/16 12:44 Glucose (Glucose Chew Tab) 4-8 Tablets 4 Tabl... UD PRN PO 07/11/16 12:45 08/10/16 12:44 Dextrose (Dextrose 50% 50ML Syringe) 25-50ML OF 50% DW IV FOR... UD PRN IV 07/11/16 12:45 08/10/16 12:44 Glucagon (Glucagon Inj) 1 mg UD PRN SQ 07/11/16 12:45 08/10/16 12:44 Hydralazine HCl (HydrALAZINE INJ) 10 mg Q6 PRN IV. 07/11/16 12:45 08/10/16 12:44 Miconazole Nitrate (Desenex Powder) 1 appln BID PRN EXT 07/11/16 20:15 08/10/16 20:14 Laboratory Data Labs: Last 24 Hours Test 07/12/16 05:53 07/12/16 07:29 07/12/16 11:15 07/12/16 16:28 White Blood Count 5.54 K/uL Red Blood Count 4.61 M/uL Hemoglobin 14.3 g/dL Hematocrit 42.9 % Mean Corpuscular Volume 93.1 fL Mean Corpuscular Hemoglobin 31.0 pg Mean Corpuscular Hemoglobin Concent 33.3 g/dl RDW Standard Deviation 46.8 fL RDW Coefficient of Variation 13.8 % Platelet Count 177 K/uL Mean Platelet Volume 10.6 fL Sodium Level 137 mmol/L Potassium Level 3.6 mmol/L Chloride Level 102 mmol/L Carbon Dioxide Level 27 mmol/L Anion Gap 8.0 mmol/L Blood Urea Nitrogen 11 mg/dl Creatinine 1.10 mg/dl Est Creatinine Clear Calc Drug Dose 66.4 ml/min Estimated GFR () 75.7 Estimated GFR (Non- 65.3 BUN/Creatinine Ratio 9.9 Random Glucose 91 mg/dl Estimated Average Glucose 123 mg/dl Hemoglobin A1c 5.9 % Calcium Level 8.3 mg/dl Total Creatine Kinase 3354 U/L Vitamin B12 Level 304 pg/mL Bedside Glucose 79 mg/dl 126 mg/dl 98 mg/dl Assessment and Plan A 75 y/o male with PMHx of T2DM with Diabetic Neuropathy, HTN, Gout, LEN, DVT with PE (2013) off anticoagulation who presents to the ED c/o generalized arm and leg weakness and numbness/tingling that started at 0230. In the ED, CT was negative for acute intracranial findings. CXR without evidence of consolidation. He is afebrile and normotensive. Labs largely unremarkable except for CK of 2844. UA with evidence of 3+ occult blood but negative for bacteria. Rhabdomyolysis: cont NSS at 125 mL/hr Trend CPK Generalized Weakness and Recent Falls: his may be multifactorial given hx diabetic neuropathy and current rhabdomyolysis. check B12 level, ESR, and CRP PT/OT Evaluations. ,needs placement T2DM with Diabetic Neuropathy: A1c 5.8 (February 2016) Hold Metformin SSI - goal 120-160 and correction factor 40 Gabapentin 300 mg QID HTN: Hold Dyazide and use Hydralazine PRN fall: no new fx, just old rib fx, PT?OT evals Gout: Allopurinol 300 mg daily LEN: Patient may use own CPAP DVT Prophylaxis: Lovenox 40 mg SC daily Code Status: FULL RESUSCITATION dispo: rehab
--- NOTE | 2016-07-12 22:24 | Progress Note ---
Progress Note Date of Service Jul 12, 2016. Progress Note Called by nurse approximately 21:59 Patient has reportedly had difficulty sleeping at nightime. Patient and family notes he takes Clonazepam 0.25 mg HS at night for sleep EMR reviewed and confirms that patient takes medication as noted above Plan: Clonazepam 0.25 mg PO HS PRN for sleep added to patient's medications
[2016-07-13 03:28] VITALS: O2SAT 95
[2016-07-13] MEDS: SODIUM CHLORIDE 0.9% 1000ML 1,000 ML IV SCH ×3 (05:57→20:17)
[2016-07-13] MEDS: ALUMINUM/MAGNESIUM/SIMETH (MAALOX MAX) 30 ML UDC PO PRN ×2 (07:22→22:50)
[2016-07-13 08:00] VITALS: O2SAT 94
[2016-07-13] MEDS: ONDANSETRON INJ 2 MG/ML 2 ML VIAL IV PRN (08:09)
[2016-07-13] MEDS: ASPIRIN 81 MG ECTAB PO SCH (08:11)
[2016-07-13] MEDS: GABAPENTIN 300 MG CAP PO SCH ×4 (08:11→21:38)
[2016-07-13] MEDS: ALLOPURINOL 300 MG TAB PO SCH (08:11)
[2016-07-13] MEDS: ENOXAPARIN 40 MG/0.4 ML SYR SQ SCH (08:11)
[2016-07-13] MEDS: INSULIN ASPART 100 UNITS/ML 3 ML PEN SC SCH ×4 (08:12→21:00)
[2016-07-13 08:39] VITALS: BP 185/76; PULSE 74; TEMP 37; O2SAT 94
--- NOTE | 2016-07-13 14:27 | Progress Note ---
Subjective Subjective Date of Service: Jul 13, 2016. Pt evaluation today including: conversation w/ patient, physical exam, chart review, review of studies, review of inpatient medication list Notes: had upset stomach, did not sleep much Problem List Medical Problems: (1) Rhabdomyolysis Status: Acute (2) Weakness Status: Acute Review of Systems Constitutional: No fever ENT: No hearing loss Respiratory: No cough Cardiac: No chest pain Abdomen: + diarrhea, + nausea, + vomiting, No pain Male : No dysuria Neurologic: No memory loss Psychiatric: No depression symptoms Endo: + fatigue Physical Exam Vital Signs Vital Signs Past 24 Hours: Date Time Temp Pulse Resp B/P Pulse Ox O2 Delivery O2 Flow Rate FiO2 07/13/16 08:39 37.0 74 24 185/76 94 07/13/16 08:00 94 Room Air 07/13/16 03:28 95 07/12/16 23:34 37.2 75 18 161/85 95 Room Air 07/12/16 16:20 95 Room Air 07/12/16 16:08 72 95 07/12/16 15:15 36.7 70 18 144/73 96 Room Air Physical Exam: General Appearance: WD/WN, no apparent distress Eyes: bilateral eyes normal inspection ENT: hearing grossly normal, pharynx normal Neck: supple, no JVD Respiratory/Chest: lungs clear Cardiovascular: regular rate, rhythm, no JVD Abdomen: normal bowel sounds, soft Extremities: normal range of motion Neurologic/Psychiatric: alert Medications Medications: Current Inpatient Medications Medications (Trade) Dose Ordered Sig/[place] Route Start Time Stop Time Status Last Admin Dose Admin Acetaminophen (Tylenol Tab) 650 mg Q4H PRN PO 07/11/16 12:15 08/10/16 12:14 Al Hydrox/Mg Hydrox/Simethicone (Maalox Max Susp) 15 ml Q4H PRN PO 07/11/16 12:15 08/10/16 12:14 07/13/16 07:22 15 ML Magnesium Hydroxide (Milk Of Magnesia Susp) 30 ml Q6H PRN PO 07/11/16 12:15 08/10/16 12:14 Polyethylene (Miralax Powder Packet) 17 gm DAILY PRN PO 07/11/16 12:15 08/10/16 12:14 07/12/16 14:54 17 GM Ondansetron HCl (Zofran Inj) 4 mg Q6H PRN IV 07/11/16 12:15 08/10/16 12:14 07/13/16 08:09 4 MG Allopurinol (Zyloprim Tab) 300 mg DAILY PO 07/12/16 09:00 08/11/16 08:59 07/13/16 08:11 300 MG Aspirin (Ecotrin Tab) 81 mg DAILY PO 07/12/16 09:00 08/11/16 08:59 07/13/16 08:11 81 MG Gabapentin 300 mg 300 mg QID PO 07/11/16 17:00 08/10/16 16:59 07/13/16 13:30 300 MG Sodium Chloride (Nss 1000ml) 1,000 ml @ 125 mls/hr Q8H IV 07/11/16 12:30 08/10/16 12:29 07/13/16 13:30 125 MLS/HR Enoxaparin Sodium (Lovenox Inj) 40 mg QAM SQ 07/12/16 09:00 08/11/16 08:59 07/13/16 08:11 40 MG Insulin Aspart (novoLOG ASPART) SLIDING SCALE G... ACHS SC 07/11/16 16:30 08/10/16 16:29 Glucose (Glucose 40% Gel) 15-30 GRAMS 15 GRAMS... UD PRN PO 07/11/16 12:45 08/10/16 12:44 Glucose (Glucose Chew Tab) 4-8 Tablets 4 Tabl... UD PRN PO 07/11/16 12:45 08/10/16 12:44 Dextrose (Dextrose 50% 50ML Syringe) 25-50ML OF 50% DW IV FOR... UD PRN IV 07/11/16 12:45 08/10/16 12:44 Glucagon (Glucagon Inj) 1 mg UD PRN SQ 07/11/16 12:45 08/10/16 12:44 Hydralazine HCl (HydrALAZINE INJ) 10 mg Q6 PRN IV. 07/11/16 12:45 08/10/16 12:44 Miconazole Nitrate (Desenex Powder) 1 appln BID PRN EXT 07/11/16 20:15 08/10/16 20:14 Clonazepam (Klonopin Tab) 0.25 mg HS PRN PO 07/12/16 22:15 08/11/16 22:14 Laboratory Data Labs: Last 24 Hours Test 07/12/16 16:28 07/12/16 21:14 07/13/16 07:15 07/13/16 07:52 Bedside Glucose 98 mg/dl 104 mg/dl 105 mg/dl Total Creatine Kinase 2424 U/L Test 07/13/16 11:28 Bedside Glucose 119 mg/dl Assessment and Plan A 75 y/o male with PMHx of T2DM with Diabetic Neuropathy, HTN, Gout, LEN, DVT with PE (2013) off anticoagulation who presents to the ED c/o generalized arm and leg weakness and numbness/tingling that started at 0230. In the ED, CT was negative for acute intracranial findings. CXR without evidence of consolidation. He is afebrile and normotensive. Labs largely unremarkable except for CK of 2844. UA with evidence of 3+ occult blood but negative for bacteria. Rhabdomyolysis: improving cont NSS at 125 mL/hr Trend CPK n/v/d: GE? r/o cdiff, check stool for cdiff, cont IVF, check serial BMP Generalized Weakness and Recent Falls: his may be multifactorial given hx diabetic neuropathy and current rhabdomyolysis. PT/OT Evaluations. ,needs placement T2DM with Diabetic Neuropathy: A1c 5.8 (February 2016) Hold Metformin SSI - goal 120-160 and correction factor 40 Gabapentin 300 mg QID HTN: Hold Dyazide and use Hydralazine PRN fall: no new fx, just old rib fx, PT?OT evals Gout: Allopurinol 300 mg daily LEN: Patient may use own CPAP DVT Prophylaxis: Lovenox 40 mg SC daily Code Status: FULL RESUSCITATION dispo: rehab when bed is available
[2016-07-13 15:42] VITALS: BP 140/73; PULSE 67; TEMP 37.1; O2SAT 96
--- NOTE | 2016-07-13 16:42 | Discharge Instructions ---
Discharge Instructions Admission Reason for Admission: Rhabdomolysis Discharge Discharge Diagnosis / Problem: rhabdomyolisis Discharge Goals Goal(s): Increase independence, Improve disease control, Diagnostic testing, Therapeutic intervention Activity Recommendations Activity Level: Assistance Required Therapies: Physical Therapy, Occupational Therapy . Additional Information Patient informed of condition: Yes Advance Directives: Yes DNR: No Level of Care: Acute Rehab Communicable Disease: No Prognosis: Stable Amaya Catheter: No Current Hospital Diet Patient's current hospital diet: Diabetes Type 2 Diet Discharge Diet Recommended Diet: Diabetes Type 2 Diet Pending Studies Studies pending at discharge: no Physician Orders On Transfer POLST Discussion: Not Applicable Laboratory Results Hemoglobin A1c Test 07/12/16 05:53 Range/Units Estimated Average Glucose 123 mg/dl Hemoglobin A1c 5.9 H 4.5-5.6 % Medical Emergencies . Who to Call and When: Medical Emergencies: If at any time you feel your situation is an emergency, please call 911 immediately. . Non-Emergent Contact Non-Emergency issues call your: Primary Care Provider Call Non-Emergent contact if: your pain is not controlled, you have any medication questions . . "Provider Documentation" section prepared by Jose Koch. Core Measure Problem Core Measures: None
--- NOTE | 2016-07-13 16:44 | Discharge Summary ---
Discharge Summary Date of Service Jul 13, 2016. Discharge Summary Admission Date: Jul 11, 2016 at 12:30 Discharge Date: Jul 13, 2016 Discharge Disposition: Rehab Principal Diagnosis: rhabdomyolisis Medication Reconciliation Continued Medications: Allopurinol (Zyloprim) 300 Mg Tab 300 MG PO DAILY, TAB Aspirin (Aspirin Ec) 81 Mg Tab 81 MG PO DAILY Cholecalciferol (Vitamin D3) 2,000 Unit Cap 2000 UNITS PO DAILY for 90 Days, CAP 3 Refills Clonazepam (Klonopin) 0.5 Mg Tab 0.25-0.5 MG PO HS PRN for Sleep, TAB Gabapentin (Neurontin) 300 Mg Cap 300 MG PO QID, CAP Metformin Hcl (Glucophage) 500 Mg Tab 500 MG PO BID, TAB Polyethylene Glycol 3350 (Bulk (Polyethylene Glycol 3350) 1 Pow Pow 17 GM PO BID, #255 GM Triamterene/Hctz (Dyazide 37.5MG/25MG) Cap 0.5 TAB PO DAILY, CAP Referrals At Discharge Follow up Referrals: Physician Referral - Within 2 Weeks with John Rayo M.D. Discharge Exam Review of Systems: Constitutional: No chills ENT: No unusual epistaxis Respiratory: No sputum Abdomen: No nausea Genitourinary - Male: No hematuria Psychiatric: No depression symptoms Endocrine: No fatigue Integumentary: No rash Physical Exam: General Appearance: no apparent distress Eyes: EOMI ENT: hearing grossly normal, pharynx normal Neck: supple, no JVD Respiratory/Chest: chest non-tender, normal breath sounds Cardiovascular: no JVD, no murmur Abdomen / GI: non tender, soft Extremities: normal inspection, normal capillary refill Neurologic/Psychiatric: alert Skin: normal color Hospital Course A 75 y/o male with PMHx of T2DM with Diabetic Neuropathy, HTN, Gout, LEN, DVT with PE (2013) off anticoagulation who presents to the ED c/o generalized arm and leg weakness and numbness/tingling that started at 0230. In the ED, CT was negative for acute intracranial findings. CXR without evidence of consolidation. He is afebrile and normotensive. Labs largely unremarkable except for CK of 2844. UA with evidence of 3+ occult blood but negative for bacteria. Rhabdomyolysis: improving cont NSS at 125 mL/hr Trend CPK n/v/d: GE, improved Generalized Weakness and Recent Falls: his may be multifactorial given hx diabetic neuropathy and current rhabdomyolysis. PT/OT Evaluations. ,needs placement T2DM with Diabetic Neuropathy: A1c 5.8 (February 2016) Hold Metformin SSI - goal 120-160 and correction factor 40 Gabapentin 300 mg QID HTN: Hold Dyazide and use Hydralazine PRN fall: no new fx, just old rib fx, PT?OT evals Gout: Allopurinol 300 mg daily LEN: Patient may use own CPAP DVT Prophylaxis: Lovenox 40 mg SC daily Code Status: FULL RESUSCITATION dispo: d/c to rehab when bed is available Total Time Spent: Greater than 30 minutes This includes examination of the patient, discharge planning, medication reconciliation, and communication with other providers. Discharge Instructions Please refer to the electronic Patient Visit Report (Discharge Instructions) for additional information. Additional Copies To John Rayo M.D.
[2016-07-13] MEDS: CLONAZEPAM 0.5 MG TAB PO PRN (21:38)
[2016-07-14] MEDS: SODIUM CHLORIDE 0.9% 1000ML 1,000 ML IV SCH ×3 (04:19→20:15)
[2016-07-14] MEDS: ALUMINUM/MAGNESIUM/SIMETH (MAALOX MAX) 30 ML UDC PO PRN (04:40)
[2016-07-14] MEDS: INSULIN ASPART 100 UNITS/ML 3 ML PEN SC SCH ×4 (08:05→20:53)
[2016-07-14 08:06] LABS: HEMATOCRIT 40.7 % (42-52); MEAN CELL VOLUME 93.6 fL (80-100); MEAN CORPUSCULAR HEMOGLOBIN 30.8 pg (25-34); MEAN CORPUSCULAR HGB CONC 32.9 g/dl (32-36); PLATELET COUNT 159 K/uL (130-400); RED BLOOD COUNT 4.35 M/uL (4.7-6.1); WHITE BLOOD COUNT 4.99 K/uL (4.8-10.8)
[2016-07-14 08:07] VITALS: BP 163/73; PULSE 61; TEMP 37.1; O2SAT 93
[2016-07-14] MEDS: ONDANSETRON INJ 2 MG/ML 2 ML VIAL IV PRN (08:07)
[2016-07-14] MEDS: ENOXAPARIN 40 MG/0.4 ML SYR SQ SCH (08:07)
[2016-07-14 08:35] LABS: BUN/CREATININE RATIO 13.4 (10-20); CALCIUM 8.1 mg/dl (8.5-10.1); CREATININE 0.86 mg/dl (0.60-1.40); POTASSIUM 3.6 mmol/L (3.5-5.1)
[2016-07-14 08:53] VITALS: O2SAT 93
--- NOTE | 2016-07-14 09:06 | DIAGNOSTIC IMAGING REPORT ---
KUB CLINICAL HISTORY: Small bowel obstruction COMPARISON STUDY: 09/16/2014 FINDINGS: There is mild gastric distention. There is gas present within nondilated colon. There is no significant small bowel dilatation. IMPRESSION: Mild gastric distention. Electronically signed by: Rony Melgar M.D. 07/14/2016 9:04 AM Dictated Date/Time: 07/14/2016 9:03 AM
[2016-07-14] MEDS: GABAPENTIN 300 MG CAP PO SCH ×4 (10:37→21:09)
[2016-07-14] MEDS: ALLOPURINOL 300 MG TAB PO SCH (10:37)
[2016-07-14] MEDS: ASPIRIN 81 MG ECTAB PO SCH (10:37)
--- NOTE | 2016-07-14 10:54 | Progress Note ---
Subjective Subjective Date of Service: Jul 14, 2016. Pt evaluation today including: conversation w/ patient, physical exam, chart review, review of studies, review of inpatient medication list Problem List Medical Problems: (1) Rhabdomyolysis Status: Acute (2) Weakness Status: Acute Review of Systems Constitutional: No fever ENT: No hearing loss Respiratory: No cough Abdomen: + nausea, No pain Male : No dysuria Neurologic: No memory loss Psychiatric: No depression symptoms Endo: No fatigue Physical Exam Vital Signs Vital Signs Past 24 Hours: Date Time Temp Pulse Resp B/P Pulse Ox O2 Delivery O2 Flow Rate FiO2 07/14/16 08:53 93 Room Air 07/14/16 08:07 37.1 61 18 163/73 93 Room Air 07/14/16 00:00 Room Air BiPAP 07/13/16 18:54 Room Air 07/13/16 15:42 37.1 67 20 140/73 96 Physical Exam: General Appearance: WD/WN, no apparent distress Eyes: bilateral eyes normal inspection ENT: hearing grossly normal, pharynx normal Neck: supple, no JVD Respiratory/Chest: chest non-tender, normal breath sounds Cardiovascular: no edema, no JVD Abdomen: normal bowel sounds, soft Extremities: normal range of motion, no pedal edema Neurologic/Psychiatric: alert, oriented x 3 Medications Medications: Reported Home Medications Medications Dose Route/Sig Max Daily Dose Days Date Category Vitamin D3 (Cholecalciferol) 2,000 Unit Cap 2,000 Units PO DAILY 90 07/11/16 Reported Polyethylene Glycol 3350 (Polyethylene Glycol 3350 (Bulk) 1 Pow Pow 17 Gm PO BID 07/11/16 Reported Aspirin Ec (Aspirin) 81 Mg Tab 81 Mg PO DAILY 07/11/16 Reported Dyazide 37.5MG/25MG (Triamterene/HCTZ) Cap 0.5 Tab PO DAILY 12/12/13 Reported Glucophage (Metformin Hcl) 500 Mg Tab 500 Mg PO BID 12/12/13 Reported Neurontin (Gabapentin) 300 Mg Cap 300 Mg PO QID 12/12/13 Reported Klonopin (Clonazepam) 0.5 Mg Tab 0.25-0.5 Mg PO HS PRN 12/12/13 Reported Zyloprim (Allopurinol) 300 Mg Tab 300 Mg PO DAILY 12/12/13 Reported Laboratory Data Labs: Last 24 Hours Test 07/13/16 11:28 07/13/16 16:35 07/13/16 20:04 07/14/16 07:37 Bedside Glucose 119 mg/dl 122 mg/dl 144 mg/dl 123 mg/dl Test 07/14/16 07:46 White Blood Count 4.99 K/uL Red Blood Count 4.35 M/uL Hemoglobin 13.4 g/dL Hematocrit 40.7 % Mean Corpuscular Volume 93.6 fL Mean Corpuscular Hemoglobin 30.8 pg Mean Corpuscular Hemoglobin Concent 32.9 g/dl RDW Standard Deviation 46.8 fL RDW Coefficient of Variation 13.7 % Platelet Count 159 K/uL Mean Platelet Volume 10.0 fL Sodium Level 136 mmol/L Potassium Level 3.6 mmol/L Chloride Level 102 mmol/L Carbon Dioxide Level 25 mmol/L Anion Gap 9.0 mmol/L Blood Urea Nitrogen 12 mg/dl Creatinine 0.86 mg/dl Est Creatinine Clear Calc Drug Dose 84.9 ml/min Estimated GFR () 98.3 Estimated GFR (Non- 84.8 BUN/Creatinine Ratio 13.4 Random Glucose 128 mg/dl Calcium Level 8.1 mg/dl Total Creatine Kinase 1081 U/L Assessment and Plan A 75 y/o male with PMHx of T2DM with Diabetic Neuropathy, HTN, Gout, LEN, DVT with PE (2013) off anticoagulation who presents to the ED c/o generalized arm and leg weakness and numbness/tingling that started at 0230. In the ED, CT was negative for acute intracranial findings. CXR without evidence of consolidation. He is afebrile and normotensive. Labs largely unremarkable except for CK of 2844. UA with evidence of 3+ occult blood but negative for bacteria. Rhabdomyolysis: improving cont NSS at 125 mL/hr Trend CPK nausea, distended stomach, seems like diabetic gastroparesis, start IV reglan q6h, zofran prn, clear diet Generalized Weakness and Recent Falls: his may be multifactorial given hx diabetic neuropathy and current rhabdomyolysis. PT/OT Evaluations. ,needs placement T2DM with Diabetic Neuropathy: A1c 5.8 (February 2016) Hold Metformin SSI - goal 120-160 and correction factor 40 Gabapentin 300 mg QID HTN: Hold Dyazide and use Hydralazine PRN fall: no new fx, just old rib fx, PT?OT evals Gout: Allopurinol 300 mg daily LEN: Patient may use own CPAP DVT Prophylaxis: Lovenox 40 mg SC daily Code Status: FULL RESUSCITATION dispo: d/c to rehab hopefully over the weekend
[2016-07-14] MEDS: METOCLOPRAMIDE HCL INJ 5 MG/ML 2 ML VIAL IV. SCH ×3 (12:08→23:32)
[2016-07-14 15:24] VITALS: BP 151/81; PULSE 66; TEMP 37; O2SAT 94
[2016-07-14] MEDS: POLYETHYLENE (MIRALAX) 17 GM PACK PO PRN (17:29)
[2016-07-14 23:23] VITALS: BP 166/67; PULSE 66; TEMP 37.6; O2SAT 93
[2016-07-14] MEDS: CLONAZEPAM 0.5 MG TAB PO PRN (23:31)
[2016-07-15] VITALS: O2SAT 93
[2016-07-15 02:00] VITALS: BP 117/52
[2016-07-15] MEDS: SODIUM CHLORIDE 0.9% 1000ML 1,000 ML IV SCH (04:37)
[2016-07-15] MEDS: METOCLOPRAMIDE HCL INJ 5 MG/ML 2 ML VIAL IV. SCH ×3 (06:00→17:26)
[2016-07-15] MEDS: INSULIN ASPART 100 UNITS/ML 3 ML PEN SC SCH ×4 (06:30→20:56)
[2016-07-15 08:16] VITALS: BP 112/62; PULSE 64; TEMP 38.3; O2SAT 93
[2016-07-15 08:28] VITALS: TEMP 36.9
[2016-07-15] MEDS: ALLOPURINOL 300 MG TAB PO SCH (08:38)
[2016-07-15] MEDS: ENOXAPARIN 40 MG/0.4 ML SYR SQ SCH (08:38)
[2016-07-15] MEDS: ASPIRIN 81 MG ECTAB PO SCH (08:38)
[2016-07-15] MEDS: GABAPENTIN 300 MG CAP PO SCH ×4 (08:42→20:55)
--- NOTE | 2016-07-15 14:08 | Progress Note ---
Subjective Subjective Date of Service: Jul 15, 2016. Pt evaluation today including: conversation w/ patient, physical exam, chart review, review of studies, review of inpatient medication list Problem List Medical Problems: (1) Rhabdomyolysis Status: Acute (2) Weakness Status: Acute Review of Systems Constitutional: No fever ENT: No hearing loss Respiratory: No cough Cardiac: No chest pain Abdomen: No nausea, No pain Male : No dysuria Psychiatric: No depression symptoms Physical Exam Vital Signs Vital Signs Past 24 Hours: Date Time Temp Pulse Resp B/P Pulse Ox O2 Delivery O2 Flow Rate FiO2 07/15/16 08:28 36.9 07/15/16 08:16 38.3 64 22 112/62 93 Room Air 07/15/16 08:00 Room Air 07/15/16 02:00 117/52 07/15/16 00:00 93 BiPAP 07/14/16 23:23 37.6 66 20 166/67 93 Room Air 07/14/16 16:00 Room Air 07/14/16 15:24 37.0 66 20 151/81 94 Physical Exam: General Appearance: WD/WN, no apparent distress Eyes: bilateral eyes normal inspection ENT: hearing grossly normal, pharynx normal Neck: supple, no JVD Respiratory/Chest: lungs clear, no accessory muscle use Cardiovascular: no edema, no murmur Abdomen: non tender, soft Extremities: normal inspection, no pedal edema Neurologic/Psychiatric: alert, oriented x 3 Medications Medications: Current Inpatient Medications Medications (Trade) Dose Ordered Sig/Chester Route Start Time Stop Time Status Last Admin Dose Admin Acetaminophen (Tylenol Tab) 650 mg Q4H PRN PO 07/11/16 12:15 08/10/16 12:14 Al Hydrox/Mg Hydrox/Simethicone (Maalox Max Susp) 15 ml Q4H PRN PO 07/11/16 12:15 08/10/16 12:14 07/14/16 04:40 15 ML Magnesium Hydroxide (Milk Of Magnesia Susp) 30 ml Q6H PRN PO 07/11/16 12:15 08/10/16 12:14 Polyethylene (Miralax Powder Packet) 17 gm DAILY PRN PO 07/11/16 12:15 08/10/16 12:14 07/14/16 17:29 17 GM Ondansetron HCl (Zofran Inj) 4 mg Q6H PRN IV 07/11/16 12:15 08/10/16 12:14 07/14/16 08:07 4 MG Allopurinol (Zyloprim Tab) 300 mg DAILY PO 07/12/16 09:00 08/11/16 08:59 07/15/16 08:38 300 MG Aspirin (Ecotrin Tab) 81 mg DAILY PO 07/12/16 09:00 08/11/16 08:59 07/15/16 08:38 81 MG Gabapentin (Neurontin Cap) 300 mg QID PO 07/11/16 17:00 08/10/16 16:59 07/15/16 12:42 300 MG Enoxaparin Sodium (Lovenox Inj) 40 mg QAM SQ 07/12/16 09:00 08/11/16 08:59 07/15/16 08:38 40 MG Insulin Aspart (novoLOG ASPART) SLIDING SCALE G... ACHS SC 07/11/16 16:30 08/10/16 16:29 Glucose (Glucose 40% Gel) 15-30 GRAMS 15 GRAMS... UD PRN PO 07/11/16 12:45 08/10/16 12:44 Glucose (Glucose Chew Tab) 4-8 Tablets 4 Tabl... UD PRN PO 07/11/16 12:45 08/10/16 12:44 Dextrose (Dextrose 50% 50ML Syringe) 25-50ML OF 50% DW IV FOR... UD PRN IV 07/11/16 12:45 08/10/16 12:44 Glucagon (Glucagon Inj) 1 mg UD PRN SQ 07/11/16 12:45 08/10/16 12:44 Hydralazine HCl (HydrALAZINE INJ) 10 mg Q6 PRN IV. 07/11/16 12:45 08/10/16 12:44 Miconazole Nitrate (Desenex Powder) 1 appln BID PRN EXT 07/11/16 20:15 08/10/16 20:14 Clonazepam (Klonopin Tab) 0.25 mg HS PRN PO 07/12/16 22:15 08/11/16 22:14 07/14/16 23:31 0.25 MG Metoclopramide HCl (Reglan Inj) 10 mg Q6H IV. 07/14/16 12:00 08/13/16 10:59 07/15/16 12:42 10 MG Laboratory Data Labs: Last 24 Hours Test 07/14/16 16:48 07/14/16 19:44 07/15/16 11:24 Bedside Glucose 95 mg/dl 100 mg/dl 99 mg/dl Assessment and Plan A 75 y/o male with PMHx of T2DM with Diabetic Neuropathy, HTN, Gout, LEN, DVT with PE (2013) off anticoagulation who presents to the ED c/o generalized arm and leg weakness and numbness/tingling that started at 0230. In the ED, CT was negative for acute intracranial findings. CXR without evidence of consolidation. He is afebrile and normotensive. Labs largely unremarkable except for CK of 2844. UA with evidence of 3+ occult blood but negative for bacteria. Rhabdomyolysis: improved with IVF nausea, distended stomach, seems like diabetic gastroparesis, improved with IV reglan q6h, zofran prn, advanced diet Generalized Weakness and Recent Falls: his may be multifactorial given hx diabetic neuropathy and current rhabdomyolysis. PT/OT Evaluations. ,needs placement T2DM with Diabetic Neuropathy: A1c 5.8 (February 2016) Hold Metformin SSI - goal 120-160 and correction factor 40 Gabapentin 300 mg QID HTN: Hold Dyazide and use Hydralazine PRN fall: no new fx, just old rib fx, PT?OT evals Gout: Allopurinol 300 mg daily LEN: Patient may use own CPAP DVT Prophylaxis: Lovenox 40 mg SC daily Code Status: FULL RESUSCITATION dispo: d/c to [place] sunday
[2016-07-15 15:08] VITALS: BP 132/86; PULSE 63; TEMP 37.2; O2SAT 94
[2016-07-15] MEDS: POLYETHYLENE (MIRALAX) 17 GM PACK PO PRN (16:24)
[2016-07-15 20:55] VITALS: TEMP 37.4
[2016-07-15] MEDS: CLONAZEPAM 0.5 MG TAB PO PRN (20:55)
[2016-07-16 00:12] VITALS: BP 139/68; PULSE 60; TEMP 37; O2SAT 94
[2016-07-16] MEDS: METOCLOPRAMIDE HCL INJ 5 MG/ML 2 ML VIAL IV. SCH ×4 (00:19→16:27)
[2016-07-16] MEDS: INSULIN ASPART 100 UNITS/ML 3 ML PEN SC SCH ×4 (06:30→20:51)
[2016-07-16 07:32] VITALS: BP 160/79; PULSE 60; TEMP 37; O2SAT 94
[2016-07-16] MEDS: ASPIRIN 81 MG ECTAB PO SCH (08:24)
[2016-07-16] MEDS: ALLOPURINOL 300 MG TAB PO SCH (08:25)
[2016-07-16] MEDS: GABAPENTIN 300 MG CAP PO SCH ×4 (08:25→21:21)
[2016-07-16] MEDS: ENOXAPARIN 40 MG/0.4 ML SYR SQ SCH (08:25)
--- NOTE | 2016-07-16 10:56 | Progress Note ---
Subjective Subjective Date of Service: Jul 16, 2016. Pt evaluation today including: conversation w/ patient, physical exam, chart review, review of studies, review of inpatient medication list Problem List Medical Problems: (1) Rhabdomyolysis Status: Acute (2) Weakness Status: Acute Review of Systems Constitutional: No fever ENT: No hearing loss Respiratory: No cough Abdomen: No constipation, No diarrhea, No nausea, No pain, No vomiting Male : No dysuria Neurologic: No memory loss Psychiatric: No depression symptoms Physical Exam Vital Signs Vital Signs Past 24 Hours: Date Time Temp Pulse Resp B/P Pulse Ox O2 Delivery O2 Flow Rate FiO2 07/16/16 08:00 Room Air 07/16/16 07:32 37.0 60 18 160/79 94 07/16/16 00:30 CPAP 07/16/16 00:12 37.0 60 18 139/68 94 BiPAP 07/15/16 20:55 37.4 07/15/16 16:00 Room Air 07/15/16 15:08 37.2 63 24 132/86 94 Room Air Physical Exam: General Appearance: WD/WN, no apparent distress Eyes: bilateral eyes normal inspection ENT: hearing grossly normal, pharynx normal Neck: supple, no JVD Respiratory/Chest: lungs clear, normal breath sounds Cardiovascular: regular rate, rhythm, no edema Abdomen: non tender, soft Extremities: non-tender, no pedal edema Neurologic/Psychiatric: alert, normal mood/affect Skin: normal color, no rash Medications Medications: Current Inpatient Medications Medications (Trade) Dose Ordered Sig/Chester Route Start Time Stop Time Status Last Admin Dose Admin Acetaminophen (Tylenol Tab) 650 mg Q4H PRN PO 07/11/16 12:15 08/10/16 12:14 07/15/16 20:54 650 MG Al Hydrox/Mg Hydrox/Simethicone (Maalox Max Susp) 15 ml Q4H PRN PO 07/11/16 12:15 08/10/16 12:14 07/14/16 04:40 15 ML Magnesium Hydroxide (Milk Of Magnesia Susp) 30 ml Q6H PRN PO 07/11/16 12:15 08/10/16 12:14 Polyethylene (Miralax Powder Packet) 17 gm DAILY PRN PO 07/11/16 12:15 08/10/16 12:14 07/15/16 16:24 17 GM Ondansetron HCl (Zofran Inj) 4 mg Q6H PRN IV 07/11/16 12:15 08/10/16 12:14 07/14/16 08:07 4 MG Allopurinol (Zyloprim Tab) 300 mg DAILY PO 07/12/16 09:00 08/11/16 08:59 07/16/16 08:25 300 MG Aspirin (Ecotrin Tab) 81 mg DAILY PO 07/12/16 09:00 08/11/16 08:59 07/16/16 08:24 81 MG Gabapentin (Neurontin Cap) 300 mg QID PO 07/11/16 17:00 08/10/16 16:59 07/16/16 08:25 300 MG Enoxaparin Sodium (Lovenox Inj) 40 mg QAM SQ 07/12/16 09:00 08/11/16 08:59 07/16/16 08:25 40 MG Insulin Aspart (novoLOG ASPART) SLIDING SCALE G... ACHS SC 07/11/16 16:30 08/10/16 16:29 Glucose (Glucose 40% Gel) 15-30 GRAMS 15 GRAMS... UD PRN PO 07/11/16 12:45 08/10/16 12:44 Glucose (Glucose Chew Tab) 4-8 Tablets 4 Tabl... UD PRN PO 07/11/16 12:45 08/10/16 12:44 Dextrose (Dextrose 50% 50ML Syringe) 25-50ML OF 50% DW IV FOR... UD PRN IV 07/11/16 12:45 08/10/16 12:44 Glucagon (Glucagon Inj) 1 mg UD PRN SQ 07/11/16 12:45 08/10/16 12:44 Hydralazine HCl (HydrALAZINE INJ) 10 mg Q6 PRN IV. 07/11/16 12:45 08/10/16 12:44 Miconazole Nitrate (Desenex Powder) 1 appln BID PRN EXT 07/11/16 20:15 08/10/16 20:14 Clonazepam (Klonopin Tab) 0.25 mg HS PRN PO 07/12/16 22:15 08/11/16 22:14 07/15/16 20:55 0.25 MG Metoclopramide HCl (Reglan Inj) 10 mg Q6H IV. 07/14/16 12:00 08/13/16 10:59 07/16/16 05:40 10 MG Laboratory Data Labs: Last 24 Hours Test 07/15/16 11:24 07/15/16 16:32 07/15/16 20:16 07/16/16 07:30 Bedside Glucose 99 mg/dl 89 mg/dl 93 mg/dl 82 mg/dl Assessment and Plan A 75 y/o male with PMHx of T2DM with Diabetic Neuropathy, HTN, Gout, LEN, DVT with PE (2013) off anticoagulation who presents to the ED c/o generalized arm and leg weakness and numbness/tingling that started at 0230. In the ED, CT was negative for acute intracranial findings. CXR without evidence of consolidation. He is afebrile and normotensive. Labs largely unremarkable except for CK of 2844. UA with evidence of 3+ occult blood but negative for bacteria. Rhabdomyolysis: improved with IVF nausea, distended stomach, seems like diabetic gastroparesis, improved with IV reglan q6h, zofran prn, advanced diet, may discharge on po reglan q8h when patient is ready Generalized Weakness and Recent Falls: his may be multifactorial given hx diabetic neuropathy and current rhabdomyolysis. PT/OT Evaluations. needs placement T2DM with Diabetic Neuropathy: A1c 5.8 (February 2016) Hold Metformin SSI - goal 120-160 and correction factor 40 Gabapentin 300 mg QID HTN: Hold Dyazide and use Hydralazine PRN fall: no new fx, just old rib fx, PT?OT evals Gout: Allopurinol 300 mg daily LEN: Patient may use own CPAP DVT Prophylaxis: Lovenox 40 mg SC daily Code Status: FULL RESUSCITATION dispo: d/c to [place], hopefully on sunday
[2016-07-16 15:37] VITALS: BP 133/76; PULSE 68; TEMP 36.7; O2SAT 95
[2016-07-16 20:00] VITALS: O2SAT 95
[2016-07-17] MEDS: CLONAZEPAM 0.5 MG TAB PO PRN (00:36)
[2016-07-17] MEDS: METOCLOPRAMIDE HCL INJ 5 MG/ML 2 ML VIAL IV. SCH ×3 (00:37→11:55)
[2016-07-17 00:52] VITALS: BP 148/69; PULSE 64; TEMP 37.5; O2SAT 95
[2016-07-17] MEDS: INSULIN ASPART 100 UNITS/ML 3 ML PEN SC SCH ×2 (06:30→11:00)
[2016-07-17 07:27] LABS: HEMATOCRIT 39.1 % (42-52); MEAN CELL VOLUME 90.5 fL (80-100); MEAN CORPUSCULAR HEMOGLOBIN 30.1 pg (25-34); MEAN CORPUSCULAR HGB CONC 33.2 g/dl (32-36); MEAN PLATELET VOLUME 10.3 fL (7.4-10.4); PLATELET COUNT 143 K/uL (130-400); RED BLOOD COUNT 4.32 M/uL (4.7-6.1); WHITE BLOOD COUNT 4.42 K/uL (4.8-10.8)
[2016-07-17] MEDS: ASPIRIN 81 MG ECTAB PO SCH (07:44)
[2016-07-17] MEDS: ALLOPURINOL 300 MG TAB PO SCH (07:44)
[2016-07-17] MEDS: GABAPENTIN 300 MG CAP PO SCH ×2 (07:44→13:40)
[2016-07-17] MEDS: ENOXAPARIN 40 MG/0.4 ML SYR SQ SCH (07:45)
[2016-07-17 07:58] LABS: CREATININE 1.1 mg/dl (0.60-1.40)
[2016-07-17 08:00] VITALS: O2SAT 95
[2016-07-17 08:06] VITALS: BP 140/82; PULSE 55; PULSE 62; TEMP 37; O2SAT 95
[2016-07-17 08:24] VITALS: O2SAT 95
[2016-07-17] MEDS ORDERED: METO1TAB55 PO (12:25)
[2016-07-17] MEDS ORDERED: MCTP EXT (12:25)
[2016-07-17] MEDS ORDERED: CYAN100020 PO (12:25)
[2016-07-17] MEDS ORDERED: CLON0.5T3 PO (12:25)
[2016-07-17 12:40] VITALS: BP 140/82; PULSE 62; TEMP 37; O2SAT 95
--- NOTE | 2016-07-17 13:30 | DIAGNOSTIC IMAGING REPORT ---
ULTRASOUND BILATERAL LOWER EXTREMITY VENOUS CLINICAL HISTORY: Lower extremity edema. COMPARISON STUDY: Bilateral lower extremity venous ultrasound dated 02/06/2014. TECHNIQUE: Real-time, grayscale, and color Doppler sonography of the deep veins of the right and left lower extremity was performed from the inguinal crease to the calf. Compression and augmentation were utilized. FINDINGS: There is no sonographic evidence of deep venous thrombosis identified in the right or left lower extremity. The common femoral, superficial femoral, and popliteal veins are patent and normally compressible bilaterally. The greater saphenous vein and the profunda femoris vein at the junction with the common femoral vein are clear in both legs. The visualized calf veins are patent bilaterally. IMPRESSION: There is no sonographic evidence of deep venous thrombosis identified in the right or left lower extremity. Electronically signed by: Darío Pryor M.D. 07/17/2016 1:29 PM Dictated Date/Time: 07/17/2016 1:28 PM
--- NOTE | 2016-07-17 13:45 | Discharge Instructions ---
Discharge Instructions Admission Reason for Admission: Rhabdomolysis Discharge Discharge Diagnosis / Problem: Rhabdomyolysis, weakness Discharge Goals Goal(s): Improve disease control, Therapeutic intervention Activity Recommendations Activity Level: Assistance Required Therapies: Physical Therapy, Occupational Therapy . Additional Information Patient informed of condition: Yes Advance Directives: Yes DNR: No Level of Care: Skilled Communicable Disease: No Prognosis: Stable Oxygen at (LPM): CPAP qhs Amaya Catheter: No Instructions / Follow-Up Instructions / Follow-Up A 75 y/o male with PMHx of T2DM with Diabetic Neuropathy, HTN, Gout, LEN, DVT with PE (2013) off anticoagulation who presents to the ED c/o generalized arm and leg weakness and numbness/tingling that started at 0230 on the day of admission. In the ED, CT was negative for acute intracranial findings. CXR without evidence of consolidation. He is afebrile and normotensive. Labs largely unremarkable except for CK of 2844. UA with evidence of 3+ occult blood but negative for bacteria. Rhabdomyolysis, Generalized Weakness and Recent Falls: Rhabdo improved with IVF , CK down to 1000 Has had progressive weakness and falls the last 1-2 months -If not improving with PT/OT at rehab, recommend outpatient consultation with Neurology his may be multifactorial given hx diabetic neuropathy and current rhabdomyolysis. PT/OT Evaluations. needs placement No new fx, just old rib fx on imaging Nausea, distended stomach, seems like diabetic gastroparesis, improved with IV reglan q6h, zofran prn, advanced diet, may discharge on po reglan q8h T2DM with Diabetic Neuropathy: A1c 5.8 (February 2016) Held Metformin but will restart on discharge Gabapentin 300 mg QID HTN: Held Dyazide for possible dehydration on admission -had some mild LE edema and dyazide should be restarted on discharge -LE Bilateral Doppler negative for DVT Gout: Allopurinol 300 mg daily LEN: Patient may use own CPAP Anxiety-uses clonazepam prn -consider adding on SSRI as anxiety exacerbated by hospitalization DVT Prophylaxis: Lovenox 40 mg SC daily Code Status: FULL RESUSCITATION dispo: d/c to [place], hopefully on sunday Current Hospital Diet Patient's current hospital diet: N/A, Diabetes Type 2 Diet Discharge Diet Recommended Diet: Diabetes Type 2 Diet Procedures Procedures Performed: Bilateral Doppler Lower Extremities-negative Head CT Chest and rib xray KUB Elbow-right Pending Studies Studies pending at discharge: no Physician Orders On Transfer Special Precautions: Fall risk Vital Signs: routine Weigh: routine Additional Orders: Follow up with PCP within 1 week from discharge Consider Neurology consultation if weakness not improving POLST Discussion: Not Applicable Laboratory Results Hemoglobin A1c Test 07/12/16 05:53 Range/Units Estimated Average Glucose 123 mg/dl Hemoglobin A1c 5.9 H 4.5-5.6 % Medical Emergencies . Who to Call and When: Medical Emergencies: If at any time you feel your situation is an emergency, please call 911 immediately. . Non-Emergent Contact Non-Emergency issues call your: Primary Care Provider . . "Provider Documentation" section prepared by Carmen Simmons. Core Measure Problem Core Measures: None
--- NOTE | 2016-07-25 09:37 | Discharge Summary ---
Discharge Summary Date of Service Jul 17, 2016. Discharge Summary Admission Date: Jul 11, 2016 at 12:30 Discharge Date: Jul 17, 2016 Discharge Disposition: long-term facility Principal Diagnosis: Rhabdomyolysis Problems/Secondary Diagnoses: T2DM with Diabetic Neuropathy HTN Gout LEN on CPAP H/o DVT with PE (2013) off anticoagulation Generalized Weakness and Recent Falls Diabetic gastroparesis Anxiety disorder Procedures: Head CT: No acute intracranial abnormality. CXR: Minimal platelike atelectasis left base. Otherwise negative study Rib xrays: Old, healed bilateral lower rib fractures. No definite acute rib fractures. No pneumothorax Right elbow xray: No acute fracture or dislocation within the right elbow KUB: Mild gastric distention. Bilateral lower extremity venous Doppler: There is no sonographic evidence of deep venous thrombosis identified in the right or left lower extremity Consultations: None Medication Reconciliation New Medications: Cyanocobalamin (Vitamin B12) 1,000 Mcg Tab 1000 MCG PO DAILY for 30 Days Metoclopramide Hcl (Reglan) 10 Mg Tab 1 TAB PO TID for 30 Days, #90 TAB with meals Miconazole Nitrate (Desenex Shake Powder) 43 Appln/43 Gm Powd 1 APPLN EXT BID PRN for Affected Skin Folds for 30 Days Continued Medications: Allopurinol (Zyloprim) 300 Mg Tab 300 MG PO DAILY, TAB Aspirin (Aspirin Ec) 81 Mg Tab 81 MG PO DAILY Cholecalciferol (Vitamin D3) 2,000 Unit Cap 2000 UNITS PO DAILY for 90 Days, CAP 3 Refills Clonazepam (Klonopin) 0.5 Mg Tab 0.25-0.5 MG PO HS PRN for Sleep, #3 TAB (This prescription has been renewed) Gabapentin (Neurontin) 300 Mg Cap 300 MG PO QID, CAP Metformin Hcl (Glucophage) 500 Mg Tab 500 MG PO BID, TAB Polyethylene Glycol 3350 (Bulk (Polyethylene Glycol 3350) 1 Pow Pow 17 GM PO BID, #255 GM Triamterene/Hctz (Dyazide 37.5MG/25MG) Cap 0.5 TAB PO DAILY, CAP Referrals At Discharge Follow up Referrals: Physician Referral - Within 2 Weeks with John Rayo M.D. Discharge Exam PHYSICAL EXAM: General Appearance: WD/WN, no apparent distress Eyes: bilateral eyes normal inspection ENT: hearing grossly normal, pharynx normal Neck: supple, no JVD Respiratory/Chest: lungs clear, normal breath sounds Cardiovascular: regular rate, rhythm, no edema Abdomen: non tender, soft Extremities: non-tender, 1+ LE edema L>R Neurologic/Psychiatric: alert, tearful, anxious about situation Skin: normal color, no rash Review of Systems: Constitutional: No fever Eyes: No problem reported ENT: No problem reported Respiratory: No shortness of breath Cardiovascular: No chest pain Abdomen: No nausea, No pain, No vomiting Musculoskeletal: + problem reported (generalized weakness), No muscle pain Genitourinary - Male: No problem reported Neurologic: No problem reported Psychiatric: + anxiety Endocrine: No problem reported Hematologic / Lymphatic: No problem reported Hospital Course A 75 y/o male with PMHx of T2DM with Diabetic Neuropathy, HTN, Gout, LEN, DVT with PE (2013) off anticoagulation who presents to the ED c/o generalized arm and leg weakness and numbness/tingling that started at 0230 on the day of admission. In the ED, CT was negative for acute intracranial findings. CXR without evidence of consolidation. He is afebrile and normotensive. Labs largely unremarkable except for CK of 2844. UA with evidence of 3+ occult blood but negative for bacteria. Rhabdomyolysis, Generalized Weakness and Recent Falls: Rhabdo improved with IVF , CK down to 1081 at last check 3 days prior to discharge Has had progressive weakness and falls the last 1-2 months -If not improving with PT/OT at rehab, recommend outpatient consultation with Neurology his may be multifactorial given hx diabetic neuropathy and current rhabdomyolysis. PT/OT Evaluations. needs placement No new fx, just old rib fx on imaging Nausea, distended stomach, seems like diabetic gastroparesis, improved with IV reglan q6h, zofran prn, advanced diet, may discharge on po reglan q8h T2DM with Diabetic Neuropathy: A1c 5.8 (February 2016) Held Metformin but will restart on discharge Gabapentin 300 mg QID HTN: Held Dyazide for possible dehydration on admission -had some mild LE edema and dyazide should be restarted on discharge -LE Bilateral Doppler negative for DVT Gout: Allopurinol 300 mg daily LEN: Patient may use own CPAP Anxiety-uses clonazepam prn -consider adding on SSRI as anxiety exacerbated by hospitalization DVT Prophylaxis: Lovenox 40 mg SC daily Code Status: FULL RESUSCITATION dispo: d/c to [facility] Total Time Spent: Greater than 30 minutes This includes examination of the patient, discharge planning, medication reconciliation, and communication with other providers. Discharge Instructions Please refer to the electronic Patient Visit Report (Discharge Instructions) for additional information. Follow-Up With PCP within 1 week Additional Copies To John Rayo M.D.
[2016-09-05] MEDS ORDERED: SERT25TA PO (10:43)
[2016-09-05] MEDS ORDERED: ONDA4TAB46 PO (10:43)
[2017-01-04] MEDS ORDERED: CMD5 PO ×2 (15:12)
[2017-01-04] MEDS ORDERED: CLON0.5T3 PO (15:12)
[2017-01-04] MEDS ORDERED: LSN25 PO (15:12)
== END 2016-07-17 14:41 | DRG 558 ==
LOC: ENRESERVTM → ENRESERVDT → C.EDB 09:03 → C.MS2W 12:30
PROVIDERS: ADMIT Hospitalist; ATTEND Hospitalist
DX: M62.82 Rhabdomyolysis (principal); E11.65 Type 2 diabetes mellitus with hyperglycemia; E11.42 Type 2 diabetes mellitus with diabetic polyneuropathy; R20.0 Anesthesia of skin; K57.90 Diverticulosis of intestine, part unspecified, without perforation or abscess without bleeding; E78.2 Mixed hyperlipidemia; M10.9 Gout, unspecified; G47.33 Obstructive sleep apnea (adult) (pediatric); G60.9 Hereditary and idiopathic neuropathy, unspecified; G47.00 Insomnia, unspecified; R29.6 Repeated falls; F41.9 Anxiety disorder, unspecified; R11.0 Nausea; E11.43 Type 2 diabetes mellitus with diabetic autonomic (poly)neuropathy; I10 Essential (primary) hypertension; Z86.718 Personal history of other venous thrombosis and embolism; Z79.82 Long term (current) use of aspirin; Z87.891 Personal history of nicotine dependence; Z79.84 Long term (current) use of oral hypoglycemic drugs; Z79.899 Other long term (current) drug therapy

== ENCOUNTER → 2016-08-11 | Outpatient (CLI) | payer OTHER ==
[~2016-08-11] MED LIST changes: +ACET-1311 PO; +ASPI81TA28 PO; +CARB25TA12 PO; +CHOL2000 PO; +CMD5 PO; +CYAN100020 PO; -DOCU100C31 PO; +LDDP5 TD; +LSN25 PO; +MCTP EXT; +METO1TAB55 PO; +ONDA4TAB46 PO; +POLY1POW2 PO; +SERT25TA PO; +SNM/25100 PO; +TRIATAB3 PO; +VLTG EXT; +ZNTT/150 PO
[2016-08-11 17:24] LABS: BASO % 0.2 %; BASO ABS # 0.02 K/uL (0-0.2); COMPLETE YES; EOS % 1.5 %; HEMATOCRIT 44.8 % (42-52); IG% 0.6 %; LYMPH % 22.9 %; LYMPH ABS # 2.13 K/uL (1.2-3.4); MEAN CELL VOLUME 94.3 fL (80-100); MEAN CORPUSCULAR HEMOGLOBIN 30.5 pg (25-34); MEAN CORPUSCULAR HGB CONC 32.4 g/dl (32-36); MEAN PLATELET VOLUME 10.5 fL (7.4-10.4); MONO % 13.5 %; NEUT % 61.3 %; PLATELET COUNT 265 K/uL (130-400); RED BLOOD COUNT 4.75 M/uL (4.7-6.1)
[2016-08-11 17:33] LABS: BLOOD UREA NITROGEN 20 mg/dl (7-18); BUN/CREATININE RATIO 15.5 (10-20); CALCIUM 9.6 mg/dl (8.5-10.1); CARBON DIOXIDE 31 mmol/L (21-32); CHLORIDE 103 mmol/L (98-107); GLUCOSE 100 mg/dl (70-99); POTASSIUM 4.1 mmol/L (3.5-5.1); SODIUM 139 mmol/L (136-145)
== END | disposition home or self-care (01) ==
LOC: C.LABPVFM 11:18
PROVIDERS: ATTEND Nurse Practitioner Family
DX: Z87.39 Personal history of other diseases of the musculoskeletal system and connective tissue (principal)

== ENCOUNTER → 2016-11-07 | Outpatient (CLI) | payer OTHER ==
[~2016-11-07] MED LIST changes: -METO1TAB55 PO; +RANI300T2 PO; +SERT50TA PO
[2016-11-07 13:18] LABS: BASO % 0.2 %; BASO ABS # 0.02 K/uL (0-0.2); COMPLETE YES; EOS % 1.3 %; HEMATOCRIT 46.6 % (42-52); IG% 0.5 %; LYMPH % 24.6 %; LYMPH ABS # 2.05 K/uL (1.2-3.4); MEAN CELL VOLUME 96.5 fL (80-100); MEAN CORPUSCULAR HEMOGLOBIN 31.5 pg (25-34); MEAN CORPUSCULAR HGB CONC 32.6 g/dl (32-36); MEAN PLATELET VOLUME 10.5 fL (7.4-10.4); MONO % 11.5 %; NEUT % 61.9 %; PLATELET COUNT 222 K/uL (130-400); RED BLOOD COUNT 4.83 M/uL (4.7-6.1); WHITE BLOOD COUNT 8.33 K/uL (4.8-10.8)
[2016-11-07 13:35] LABS: PROTHROMBIN TIME (PATIENT) 10.7 SECONDS (9.0-12.0)
[2016-11-07 13:56] LABS: ALT/SGPT 20 U/L (12-78); BLOOD UREA NITROGEN 16 mg/dl (7-18); BUN/CREATININE RATIO 13.4 (10-20); CARBON DIOXIDE 30 mmol/L (21-32); CHLORIDE 100 mmol/L (98-107); GLUCOSE 132 mg/dl (70-99); POTASSIUM 4.1 mmol/L (3.5-5.1); SODIUM 138 mmol/L (136-145)
[2016-11-07 13:59] LABS: ALB/GLOB RATIO 0.9 (0.9-2); ALKALINE PHOSPHATASE 103 U/L (45-117); AST/SGOT 21 U/L (15-37)
[2016-11-07 14:09] LABS: CALCIUM 9.2 mg/dl (8.5-10.1)
== END | disposition home or self-care (01) ==
LOC: C.LABPVFM 09:46
PROVIDERS: ATTEND Neuromusculoskeletal Medicine & OMM
DX: Z01.818 Encounter for other preprocedural examination (principal)

== ENCOUNTER 2016-12-14 10:27 | Inpatient (IN) | payer OTHER ==
[~2016-12-14] VITALS: Ht 182.9 cm; Wt 98.8 kg
[~2016-12-14 10:27] MED LIST changes: -ACET-1311 PO; -CARB25TA12 PO; -CMD5 PO; -LDDP5 TD; -LSN25 PO; -RANI300T2 PO; -SERT50TA PO; -SNM/25100 PO; -TRIATAB3 PO; -VLTG EXT; -ZNTT/150 PO
[2016-12-14] MEDS ORDERED: SODIUM CHLORIDE 0.9% 1000ML 1,000 ML IV STA (11:39)
[2016-12-14] MEDS ORDERED: OPTIRAY 320 IV PRN (11:45)
[2016-12-14 11:49] LABS: BASO % 0.1 %; BASO ABS # 0.01 K/uL (0-0.2); COMPLETE YES; EOS % 0.6 %; HEMATOCRIT 47.3 % (42-52); IG% 0.4 %; LYMPH ABS # 1.56 K/uL (1.2-3.4); MEAN CORPUSCULAR HEMOGLOBIN 31.4 pg (25-34); MEAN CORPUSCULAR HGB CONC 33.4 g/dl (32-36); MEAN PLATELET VOLUME 10.3 fL (7.4-10.4); MONO % 11.7 %; NEUT % 73.2 %; PLATELET COUNT 246 K/uL (130-400); RED BLOOD COUNT 5.03 M/uL (4.7-6.1); WHITE BLOOD COUNT 11.12 K/uL (4.8-10.8)
[2016-12-14 11:56] LABS: URINE APPEARANCE CLEAR (CLEAR); URINE BILIRUBIN NEG (NEG); URINE COLOR YELLOW; URINE NITRITE NEG (NEG); URINE PH 8.5 (4.5-7.5); URINE SPECIFIC GRAVITY 1.019 (1.000-1.030); UROBILINOGEN NEG (NEG); ZZUR CULT IF INDIC CLEAN CATCH NO
[2016-12-14 12:01] LABS: MANUAL MICROSCOPIC REQUIRED? NO; REVIEW REQ? NO
[2016-12-14 12:08] LABS: BUN/CREATININE RATIO 11.3 (10-20); CALCIUM 9.9 mg/dl (8.5-10.1); CREATININE 1.2 mg/dl (0.60-1.40); POTASSIUM 3.4 mmol/L (3.5-5.1)
[2016-12-14] MEDS ORDERED: ZNTT/150 PO (12:13)
[2016-12-14] MEDS ORDERED: CARB25TA12 PO (12:13)
--- NOTE | 2016-12-14 12:47 | DIAGNOSTIC IMAGING REPORT ---
CT SCAN OF THE ABDOMEN AND PELVIS WITH IV CONTRAST CLINICAL HISTORY: Generalized abdominal pain. Bloating. COMPARISON STUDY: Abdominal CT dated 01/11/2014. TECHNIQUE: Following the IV administration of 94 cc of Optiray 320, CT scan of the abdomen and pelvis is performed from the lung bases to the proximal femora. Images are reviewed in the axial, sagittal, and coronal planes. IV contrast was administered without complication. Automated dose control exposure was utilized. A dose lowering technique was utilized adhering to the principles of ALARA. The Examination is degraded by streak artifact from the patient's arms which could not be elevated above the abdomen. There is also motion artifact. CT DOSE: 1654.53 mGy.cm FINDINGS: Lung bases: The heart is enlarged and without pericardial effusion. There are coronary artery calcifications. The lung bases are clear noting bibasilar atelectasis. There is a tiny hiatal hernia. Liver: The contrast-enhanced liver is normal in size, contour, and attenuation. There is no intrahepatic biliary ductal dilatation. The hepatic veins and portal veins are patent. Gallbladder: Unremarkable. Spleen: Normal in size and attenuation. There are calcified splenic granulomas. Pancreas: Atrophic and grossly unremarkable. Adrenal glands: Unremarkable. Kidneys: The contrast enhanced kidneys are atrophic and without hydronephrosis. Next renal pelvises noted on the left. The kidneys enhance symmetrically. A left renal cyst measures 8.5 cm. Abdominal vasculature: The abdominal aorta is normal in course and caliber noting advanced atherosclerotic calcification. Bowel: There are postoperative changes from right hemicolectomy with ileocolic anastomosis. The small bowel loops are normal in caliber. The sigmoid colon is tortuous. There is focal twisting of the sigmoid colon upon itself seen to the right of midline in the pelvis on axial image #318. The upstream sigmoid colon is distended and gas-filled number up to 8.5 cm in diameter. There is inflammatory stranding with vascular congestion and trace fluid seen around the twisted loop in the pelvis on axial image #309. The appearance is consistent with sigmoid volvulus. No wall thickening is identified. The more proximal colon is distended with gas and fluid. Scattered colonic diverticula are noted. Peritoneum: There is no intraperitoneal free air or abdominal ascites. Lymphadenopathy: None. Pelvic viscera: The prostate gland is enlarged and heterogeneous measuring 5.7 cm in transverse diameter. There is median lobe hypertrophy. The bladder wall is mildly thickened and trabeculated consistent with chronic outlet obstruction. Skeletal structures: The skeletal structures are osteopenic. There is a mild compression deformity of L5. Moderate to advanced lumbosacral spondylosis is observed. No lytic or blastic lesions are seen. IMPRESSION: 1. Streak and motion artifact degraded examination 2. Findings are consistent with sigmoid volvulus. There is mesenteric edema with venous engorgement around the twisted loop in the pelvis. Surgical consultation is advised. 3. The upstream colon is distended and fluid-filled. No intraperitoneal free air is seen. 4. There are postoperative changes from right hemicolectomy with ileocolic anastomosis. The small bowel loops are normal in caliber. 5. Cardiomegaly. 6. Prostatomegaly with evidence of chronic bladder outlet obstruction. 7. Additional findings as above. Electronically signed by: Darío Pryor M.D. 12/14/2016 12:46 PM Dictated Date/Time: 12/14/2016 12:34 PM
[2016-12-14] MEDS ORDERED: SODIUM CHLORIDE 0.9% 500ML 500 ML IV STA (14:14)
--- NOTE | 2016-12-14 14:40 | Medical Consult ---
Consultation Date of Consultation: Dec 14, 2016. Attending Physician: History of Present Illness 75 y/o male c/o abdominal bloating beginning 5 days ago. Saw his PCP a few days ago who stopped his metformin and started Zantac. He has had increasing bloating. Denies pain. Had watery BM Sunday. No flatus recently. Had toast this morning. No N/V. He did have some mild bloating around his last admission a few months ago (Jun) but usually resolves quickly and not this much. Had right colectomy in 2013 for polyp. He is scheduled for multi-level cervical fusion next week at [facility] [place]. Past Medical/Surgical History Medical Problems: (1) BENIGN HYPERTENSION (2) DIAB W KETOACIDOSIS, TYPE II OR UNSPEC TYPE, UNCONTROLLED (3) DIVERTICULOSIS COLON (W/O MENT OF HEMORRHAGE) (4) GOUT NOS (5) IDIO PERIPH NEURPTHY NOS (6) MIXED HYPERLIPIDEMIA Surgical: 1. right colectomy 2013 dr. Mcghee for polyp 2. TKA right 3. cataracts Family History Diabetes mellitus FH: breast cancer Social History Smoking Status: Former Smoker Drug Use: none Marital Status: , Housing Status: lives with significant other Occupation Status: retired Allergies Coded Allergies: No Known Allergies (Verified , 07/11/16) Current Inpatient Medications Current Inpatient Medications Medications (Trade) Dose Ordered Sig/[place] Route Start Time Stop Time Status Last Admin Dose Admin Ioversol (Optiray 320) 125 ml UD PRN IV 12/14/16 11:45 12/18/16 11:44 Sodium Chloride 500 ml @ 999 mls/hr Q31M STAT IV 12/14/16 14:14 12/14/16 14:44 12/14/16 14:22 999 MLS/HR Review of Systems Constitutional: No fever, No chills Abdomen: No pain, No nausea, No vomiting Physical Exam Date Time Temp Pulse Resp B/P (MAP) Pulse Ox O2 Delivery O2 Flow Rate FiO2 12/14/16 14:19 86 20 161/88 97 12/14/16 11:49 76 16 150/79 93 12/14/16 10:36 36.8 90 18 97/61 93 Room Air General Appearance: no apparent distress Respiratory/Chest: normal breath sounds Cardiovascular: regular rate, rhythm Abdomen/GI: non tender, + distended Laboratory Results Last 24 Hours Test 12/14/16 10:50 12/14/16 11:40 White Blood Count 11.12 K/uL Red Blood Count 5.03 M/uL Hemoglobin 15.8 g/dL Hematocrit 47.3 % Mean Corpuscular Volume 94.0 fL Mean Corpuscular Hemoglobin 31.4 pg Mean Corpuscular Hemoglobin Concent 33.4 g/dl Platelet Count 246 K/uL Mean Platelet Volume 10.3 fL Neutrophils (%) (Auto) 73.2 % Lymphocytes (%) (Auto) 14.0 % Monocytes (%) (Auto) 11.7 % Eosinophils (%) (Auto) 0.6 % Basophils (%) (Auto) 0.1 % Neutrophils # (Auto) 8.13 K/uL Lymphocytes # (Auto) 1.56 K/uL Monocytes # (Auto) 1.30 K/uL Eosinophils # (Auto) 0.07 K/uL Basophils # (Auto) 0.01 K/uL RDW Standard Deviation 46.5 fL RDW Coefficient of Variation 13.6 % Immature Granulocyte % (Auto) 0.4 % Immature Granulocyte # (Auto) 0.05 K/uL Sodium Level 136 mmol/L Potassium Level 3.4 mmol/L Chloride Level 99 mmol/L Carbon Dioxide Level 32 mmol/L Anion Gap 5.0 mmol/L Blood Urea Nitrogen 14 mg/dl Creatinine 1.20 mg/dl Est Creatinine Clear Calc Drug Dose 65.7 ml/min Estimated GFR () 68.1 Estimated GFR (Non- 58.8 BUN/Creatinine Ratio 11.3 Random Glucose 122 mg/dl Calcium Level 9.9 mg/dl Total Bilirubin 1.1 mg/dl Direct Bilirubin 0.2 mg/dl Aspartate Amino Transf (AST/SGOT) 21 U/L Alanine Aminotransferase (ALT/SGPT) 11 U/L Alkaline Phosphatase 120 U/L Total Protein 8.1 gm/dl Albumin 4.1 gm/dl Lipase 122 U/L Urine Color YELLOW Urine Appearance CLEAR Urine pH 8.5 Urine Specific [place] 1.019 Urine Protein NEG Urine Glucose (UA) NEG Urine Ketones NEG Urine Occult Blood NEG Urine Nitrite NEG Urine Bilirubin NEG Urine Urobilinogen NEG Urine Leukocyte Esterase MODERATE Urine WBC (Auto) 1-5 /hpf Urine RBC (Auto) 0-4 /hpf Urine Hyaline Casts (Auto) 1-5 /lpf Urine Epithelial Cells (Auto) 10-20 /lpf Urine Bacteria (Auto) NEG CT SCAN OF THE ABDOMEN AND PELVIS WITH IV CONTRAST CLINICAL HISTORY: Generalized abdominal pain. Bloating. COMPARISON STUDY: Abdominal CT dated 01/11/2014. TECHNIQUE: Following the IV administration of 94 cc of Optiray 320, CT scan of the abdomen and pelvis is performed from the lung bases to the proximal femora. Images are reviewed in the axial, sagittal, and coronal planes. IV contrast was administered without complication. Automated dose control exposure was utilized. A dose lowering technique was utilized adhering to the principles of ALARA. The Examination is degraded by streak artifact from the patient's arms which could not be elevated above the abdomen. There is also motion artifact. CT DOSE: 1654.53 mGy.cm FINDINGS: Lung bases: The heart is enlarged and without pericardial effusion. There are coronary artery calcifications. The lung bases are clear noting bibasilar atelectasis. There is a tiny hiatal hernia. Liver: The contrast-enhanced liver is normal in size, contour, and attenuation. There is no intrahepatic biliary ductal dilatation. The hepatic veins and portal veins are patent. Gallbladder: Unremarkable. Spleen: Normal in size and attenuation. There are calcified splenic granulomas. Pancreas: Atrophic and grossly unremarkable. Adrenal glands: Unremarkable. Kidneys: The contrast enhanced kidneys are atrophic and without hydronephrosis. Next renal pelvises noted on the left. The kidneys enhance symmetrically. A left renal cyst measures 8.5 cm. Abdominal vasculature: The abdominal aorta is normal in course and caliber noting advanced atherosclerotic calcification. Bowel: There are postoperative changes from right hemicolectomy with ileocolic anastomosis. The small bowel loops are normal in caliber. The sigmoid colon is tortuous. There is focal twisting of the sigmoid colon upon itself seen to the right of midline in the pelvis on axial image #318. The upstream sigmoid colon is distended and gas-filled number up to 8.5 cm in diameter. There is inflammatory stranding with vascular congestion and trace fluid seen around the twisted loop in the pelvis on axial image #309. The appearance is consistent with sigmoid volvulus. No wall thickening is identified. The more proximal colon is distended with gas and fluid. Scattered colonic diverticula are noted. Peritoneum: There is no intraperitoneal free air or abdominal ascites. Lymphadenopathy: None. Pelvic viscera: The prostate gland is enlarged and heterogeneous measuring 5.7 cm in transverse diameter. There is median lobe hypertrophy. The bladder wall is mildly thickened and trabeculated consistent with chronic outlet obstruction. Skeletal structures: The skeletal structures are osteopenic. There is a mild compression deformity of L5. Moderate to advanced lumbosacral spondylosis is observed. No lytic or blastic lesions are seen. IMPRESSION: 1. Streak and motion artifact degraded examination 2. Findings are consistent with sigmoid volvulus. There is mesenteric edema with venous engorgement around the twisted loop in the pelvis. Surgical consultation is advised. 3. The upstream colon is distended and fluid-filled. No intraperitoneal free air is seen. 4. There are postoperative changes from right hemicolectomy with ileocolic anastomosis. The small bowel loops are normal in caliber. 5. Cardiomegaly. 6. Prostatomegaly with evidence of chronic bladder outlet obstruction. 7. Additional findings as above. Electronically signed by: Darío Pryor M.D. 12/14/2016 12:46 PM Dictated Date/Time: 12/14/2016 12:34 PM Assessment & Plan Sigmoid volvulus Vitals are stable, no peritoneal findings. Recommend GI eval for decompression. Will follow along, consider resection if there is recurrence.
--- NOTE | 2016-12-14 15:17 | History and Physical ---
History & Physical Date & Time of Service: Dec 14, 2016 at 15:15 Chief Complaint: Stomach Pain W/Bloating Primary Care Physician: John Rayo M.D. History of Present Illness This is a 75 yo M with PMHx of T2DM with Diabetic Neuropathy, HTN, Gout, LEN on CPAP, 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 The patient's daughter and son are present at bedside. the pt reports this worsening abdominal distention and bloating has never happened before. He notes his last bowel movement was on Sunday and it was very loose. He is not passing much gas. Denies any nausea, vomiting or abdominal pain. He was able to take his morning medications today. The patient reports having a colonoscopy performed last year but cannot remember the name of the provider who did it, but does recall it was at [facility] at [facility]. He denies abnormal findings. Prior to this colonoscopy, he had one [place] [address] rios , a right hemicolectomy was performed due to an enlarged polyp which was unable to be removed via colonoscopy, pathology was benign. CT of the abdomen and pelvis was completed in the ER showing diffuse sigmoid volvulus, GI and general surgery are both on board. GI plans to do a colonoscopy for decompression in the morning. No leukocytosis, other vital signs are stable. Past Medical/Surgical History Medical Problems: (1) BENIGN HYPERTENSION Status: Chronic (2) DIAB W KETOACIDOSIS, TYPE II OR UNSPEC TYPE, UNCONTROLLED Status: Chronic (3) DIVERTICULOSIS COLON (W/O MENT OF HEMORRHAGE) Status: Chronic (4) GOUT NOS Status: Chronic (5) IDIO PERIPH NEURPTHY NOS Status: Chronic (6) MIXED HYPERLIPIDEMIA Status: Chronic LEN on CPAP H/o DVT with PE (2013) off anticoagulation Generalized Weakness and Recent Falls Diabetic gastroparesis Anxiety disorder Surgical: 1. right hemicolectomy 2013 dr. Mcghee for polyp 2. TKA right 3. cataracts Family History Diabetes mellitus FH: breast cancer Social History Smoking Status: Former Smoker Drug Use: none Marital Status: , Housing status: lives with family Occupational Status: retired Multi-Drug Resistant Organisms History of MDRO: No Allergies Coded Allergies: No Known Allergies (Verified , 07/11/16) Home Medications Scheduled Allopurinol (Zyloprim), 300 MG PO DAILY Aspirin (Aspirin Ec), 81 MG PO DAILY Carbidopa/Levodopa (Sinemet 25MG/100MG), 1 TAB PO TID Cholecalciferol (Vitamin D3), 2,000 UNITS PO DAILY Cyanocobalamin (Vitamin B12), 1,000 MCG PO DAILY Gabapentin (Neurontin), 300 MG PO QID Polyethylene Glycol 3350 (Bulk (Polyethylene Glycol 3350), 17 GM PO BID Ranitidine (Zantac), 150 MG PO BID Sertraline (Zoloft), 1 TAB PO DAILY Scheduled PRN Clonazepam (Klonopin), 0.25-0.5 MG PO HS PRN for Sleep Miconazole Nitrate (Desenex Shake Powder), 1 APPLN EXT BID PRN for Affected Skin Folds Ondansetron Hcl (Zofran), 4 MG PO q6hrs PRN for Nausea Review of Systems Constitutional: No fever, sweats or chills Eyes: No diplopia, no worsening or blurred vision ENT: normal hearing, no trouble swallowing Respiratory: No cough, sputum, dyspnea at rest or on exertion Cardiovascular: No chest pain, tightness or palpitations Abdomen: See history of present illness Musculoskeletal: No joint pain, calf pain, swelling Neurologic: No weakness, numbness/tingling, typically uses a walker/cane for ambulation. Psychiatric: + Anxiety with use of CPAP, history of panic attacks. Denies depression. Skin: No rash or itch Physical Exam Vital Signs Date Time Temp Pulse Resp B/P (MAP) Pulse Ox O2 Delivery O2 Flow Rate FiO2 12/14/16 15:04 70 18 154/80 96 Room Air 12/14/16 14:19 86 20 161/88 97 12/14/16 11:49 76 16 150/79 93 12/14/16 10:36 36.8 90 18 97/61 93 Room Air General: awake, alert, NAD Head: Normocephalic, atraumatic ENT: PERRL, EOMI, no pharyngeal exudate, mucous membranes moist Chest: Clear to auscultation, on room air, no adventitious breath sounds Cardiac: Regular rate and rhythm, no murmur, no JVD, normal peripheral pulses, good capillary refill Abdominal: Vertical scar over abdomen, + distended, + tinkling bowel sounds throughout all quadrants, + tympanic on percussion, nontender. Extremities: + R gautam abrasion present, no peripheral edema or erythema, calfs nontender to palpation Psych: Normal mood and affect Neuro: AAO x 3, strength intact bilaterally and related 5/5, no motor deficits, speech is clear, no peripheral sensory deficits Diagnostics Laboratory Results Results Past 24 Hours Test 12/14/16 10:50 12/14/16 11:40 Range/Units White Blood Count 11.12 4.8-10.8 K/uL Red Blood Count 5.03 4.7-6.1 M/uL Hemoglobin 15.8 14.0-18.0 g/dL Hematocrit 47.3 42-52 % Mean Corpuscular Volume 94.0 80-100 fL Mean Corpuscular Hemoglobin 31.4 25-34 pg Mean Corpuscular Hemoglobin Concent 33.4 32-36 g/dl Platelet Count 246 130-400 K/uL Mean Platelet Volume 10.3 7.4-10.4 fL Neutrophils (%) (Auto) 73.2 % Lymphocytes (%) (Auto) 14.0 % Monocytes (%) (Auto) 11.7 % Eosinophils (%) (Auto) 0.6 % Basophils (%) (Auto) 0.1 % Neutrophils # (Auto) 8.13 1.4-6.5 K/uL Lymphocytes # (Auto) 1.56 1.2-3.4 K/uL Monocytes # (Auto) 1.30 0.11-0.59 K/uL Eosinophils # (Auto) 0.07 0-0.5 K/uL Basophils # (Auto) 0.01 0-0.2 K/uL RDW Standard Deviation 46.5 36.4-46.3 fL RDW Coefficient of Variation 13.6 11.5-14.5 % Immature Granulocyte % (Auto) 0.4 % Immature Granulocyte # (Auto) 0.05 0.00-0.02 K/uL Sodium Level 136 136-145 mmol/L Potassium Level 3.4 3.5-5.1 mmol/L Chloride Level 99 98-107 mmol/L Carbon Dioxide Level 32 21-32 mmol/L Anion Gap 5.0 3-11 mmol/L Blood Urea Nitrogen 14 7-18 mg/dl Creatinine 1.20 0.60-1.40 mg/dl Est Creatinine Clear Calc Drug Dose 65.7 ml/min Estimated GFR () 68.1 Estimated GFR (Non- 58.8 BUN/Creatinine Ratio 11.3 10-20 Random Glucose 122 70-99 mg/dl Calcium Level 9.9 8.5-10.1 mg/dl Total Bilirubin 1.1 0.2-1 mg/dl Direct Bilirubin 0.2 0-0.2 mg/dl Aspartate Amino Transf (AST/SGOT) 21 15-37 U/L Alanine Aminotransferase (ALT/SGPT) 11 12-78 U/L Alkaline Phosphatase 120 45-117 U/L Total Protein 8.1 6.4-8.2 gm/dl Albumin 4.1 3.4-5.0 gm/dl Lipase 122 73-393 U/L Urine Color YELLOW Urine Appearance CLEAR CLEAR Urine pH 8.5 4.5-7.5 Urine Specific [place] 1.019 1.000-1.030 Urine Protein NEG NEG Urine Glucose (UA) NEG NEG Urine Ketones NEG NEG Urine Occult Blood NEG NEG Urine Nitrite NEG NEG Urine Bilirubin NEG NEG Urine Urobilinogen NEG NEG Urine Leukocyte Esterase MODERATE NEG Urine WBC (Auto) 1-5 0-5 /hpf Urine RBC (Auto) 0-4 0-4 /hpf Urine Hyaline Casts (Auto) 1-5 0-5 /lpf Urine Epithelial Cells (Auto) 10-20 0-5 /lpf Urine Bacteria (Auto) NEG NEG Diagnostic Radiology CT SCAN OF THE ABDOMEN AND PELVIS WITH IV CONTRAST CLINICAL HISTORY: Generalized abdominal pain. Bloating. COMPARISON STUDY: Abdominal CT dated 01/11/2014. TECHNIQUE: Following the IV administration of 94 cc of Optiray 320, CT scan of the abdomen and pelvis is performed from the lung bases to the proximal femora. Images are reviewed in the axial, sagittal, and coronal planes. IV contrast was administered without complication. Automated dose control exposure was utilized. A dose lowering technique was utilized adhering to the principles of ALARA. The Examination is degraded by streak artifact from the patient's arms which could not be elevated above the abdomen. There is also motion artifact. CT DOSE: 1654.53 mGy.cm FINDINGS: Lung bases: The heart is enlarged and without pericardial effusion. There are coronary artery calcifications. The lung bases are clear noting bibasilar atelectasis. There is a tiny hiatal hernia. Liver: The contrast-enhanced liver is normal in size, contour, and attenuation. There is no intrahepatic biliary ductal dilatation. The hepatic veins and portal veins are patent. Gallbladder: Unremarkable. Spleen: Normal in size and attenuation. There are calcified splenic granulomas. Pancreas: Atrophic and grossly unremarkable. Adrenal glands: Unremarkable. Kidneys: The contrast enhanced kidneys are atrophic and without hydronephrosis. Next renal pelvises noted on the left. The kidneys enhance symmetrically. A left renal cyst measures 8.5 cm. Abdominal vasculature: The abdominal aorta is normal in course and caliber noting advanced atherosclerotic calcification. Bowel: There are postoperative changes from right hemicolectomy with ileocolic anastomosis. The small bowel loops are normal in caliber. The sigmoid colon is tortuous. There is focal twisting of the sigmoid colon upon itself seen to the right of midline in the pelvis on axial image #[id number]. The upstream sigmoid colon is distended and gas-filled number up to 8.5 cm in diameter. There is inflammatory stranding with vascular congestion and trace fluid seen around the twisted loop in the pelvis on axial image #309. The appearance is consistent with sigmoid volvulus. No wall thickening is identified. The more proximal colon is distended with gas and fluid. Scattered colonic diverticula are noted. Peritoneum: There is no intraperitoneal free air or abdominal ascites. Lymphadenopathy: None. Pelvic viscera: The prostate gland is enlarged and heterogeneous measuring 5.7 cm in transverse diameter. There is median lobe hypertrophy. The bladder wall is mildly thickened and trabeculated consistent with chronic outlet obstruction. Skeletal structures: The skeletal structures are osteopenic. There is a mild compression deformity of L5. Moderate to advanced lumbosacral spondylosis is observed. No lytic or blastic lesions are seen. IMPRESSION: 1. Streak and motion artifact degraded examination 2. Findings are consistent with sigmoid volvulus. There is mesenteric edema with venous engorgement around the twisted loop in the pelvis. Surgical consultation is advised. 3. The upstream colon is distended and fluid-filled. No intraperitoneal free air is seen. 4. There are postoperative changes from right hemicolectomy with ileocolic anastomosis. The small bowel loops are normal in caliber. 5. Cardiomegaly. 6. Prostatomegaly with evidence of chronic bladder outlet obstruction. 7. Additional findings as above. Electronically signed by: Darío Pryor M.D. 12/14/2016 12:46 PM Dictated Date/Time: 12/14/2016 12:34 PM The status of this report is Signed. Impression Assessment and Plan This is a 75 yo M with PMHx of T2DM with Diabetic Neuropathy, HTN, Gout, LEN on CPAP, 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 Sigmoid Volvulus - Admit to med surg - Vitals are stable, + tinkling abdominal sounds, + distension - GI eval for decompression in the morning - Surgical consult placed and plan to follow along n case there are needs for surgical decompression. - CT reviewed showing sigmoid volvulus and appears to be 8 cm at the largest point - Hx of diabetic gastroparesis - Will order IV zofran prn - PT/OT after decompression T2DM with Diabetic Neuropathy: A1c 5.9 (07/12/16) - Pt was just taken off metformin by his PCP on Sunday, Last Hgb A1C was 5.9 in Jun 2016 be our records. - ISS with Accu-Cheks ACHS Restless leg syndrome - Gabapentin 300 mg QID once PO intake allowed - Continue Carbidopa levodopa 25-100 mg TID HTN: - Cont asa 81 mg daily once PO intake allowed Gout: - Allopurinol 300 mg daily once PO intake allowed LEN: - Will order CPAP tonight as he lives in [place], allow ativan IV prn for claustrophobia with cpap and anxiety with hospital stay. - clonazepam held due to holding PO meds - Continue sertraline 25 mg daily when able to take PO DVT Prophylaxis: Heparin subcutaneous, teds, scds Code Status: FULL RESUSCITATION Disposition: Patient from home, 2 sons live with him, PT/OT to eval PA Physician Supervision Note: I interviewed and examined the patient. Discussed with Avelina Fermin PAC and agree with findings and plan as documented in the note. Any exceptions or clarifications are listed here: None Patient presents with distended abdomen, has a history of a hemicolectomy for benign tumor, CT scan of the ER is consistent with sigmoid volvulus. Patient was evaluated by both surgery and gastroenterology and will proceed to decompression colonoscopy on December 15. CT scan measurement maximum distention of the colon is around 8 cm Patient is an only in mild discomfort having crampy abdominal, pain upon resolution of the cramps has no pain. Vital signs are stable Heart is regular lungs are clear Abdomen is distended tympanitic hyperactive bowel sounds only mildly uncomfortable to palpation Sigmoid volvulus Patient will be nothing by mouth except for his Parkinson meds, H2 blockers will be converted to IV, the patient of very loose diabetic coverage since he recently has discontinued his metformin, pain control with IV morphine, anxiety with IV Ativan and as needed antiemetics Documented By: Samuel Bee Level of Care Med/Surg Resuscitation Status FULL RESUSCITATION VTE Prophylaxis VTE Risk Assessment Done? Y/N: Yes Risk Level: Low Given or contraindicated: Unfractionated heparin SQ, T.E.D. Stockings, SCD's
--- NOTE | 2016-12-14 15:36 | Gastrointestinal Consultation ---
Gastrointestinal Consultation Date of Consultation: Dec 14, 2016 Attending Physician: Dr. Hopkins Consulting Physician: Ysabel Barksdale PA-C Reason for Consultation: Sigmoid volvulus History of Present Illness Patient is a 75 year old male with a past medical history of cervical spinal disease, hypertension, constipation, & right sided hemicolectomy who presented to the ER for complaints of abdominal bloating and discomfort. He reports that during the course of the past week, he reports that his abdomen became significantly distended. He reports that he does not have pain, but feels a discomfort on the left side rated as a 5/10. He describes the discomfort as a pressure. He reports constipation, but has dealt with this chronically since his hemicolectomy with ileocolonic anastomosis. He has followed with [facility] for his constipation. He denies rectal bleeding, fevers, chills, sweats, or diarrhea. In the ED, he was evaluated and underwent an abdominal xray that indicated sigmoid volvulus. General surgery evaluated patient and recommended trying endoscopic decompression prior to consideration of surgery. Past Medical/Surgical History Medical Problems: (1) Rhabdomyolysis Status: Acute (2) Weakness Status: Acute Past Medical History: As per HPI Past Surgical History: cataract surgery, hemicolectomy with ileocolonic anastomosis, knee replacement Family History Diabetes mellitus FH: breast cancer Social History Smoking Status: Former Smoker Alcohol Use: none Drug Use: none Marital Status: , Housing Status: lives with significant other Occupation Status: retired Allergies Coded Allergies: No Known Allergies (Verified , 07/11/16) Current Medications Home Meds and Scripts Medications Dose Route/Sig Max Daily Dose Days Date Category Zantac (Ranitidine HCl) 150 Mg Tab 150 Mg PO BID 12/14/16 Reported Sinemet 25MG/100MG (Carbidopa/Levodopa) Tab 1 Tab PO TID 12/14/16 Reported Zoloft (Sertraline HCl) 25 Mg Tab 1 Tab PO DAILY 30 09/05/16 Reported Zofran (Ondansetron HCl) 4 Mg Tab 4 Mg PO Q6HRS PRN 09/05/16 Reported Desenex Shake Powder (Miconazole Nitrate) 43 Appln/43 Gm Powd 1 Appln EXT BID PRN 30 07/17/16 Rx Vitamin B12 (Cyanocobalamin) 1,000 Mcg Tab 1,000 Mcg PO DAILY 30 07/17/16 Rx Klonopin (Clonazepam) 0.5 Mg Tab 0.25-0.5 Mg PO HS PRN 07/17/16 Rx Vitamin D3 (Cholecalciferol) 2,000 Unit Cap 2,000 Units PO DAILY 90 07/11/16 Reported Polyethylene Glycol 3350 (Polyethylene Glycol 3350 (Bulk) 1 Pow Pow 17 Gm PO BID 07/11/16 Reported Aspirin Ec (Aspirin) 81 Mg Tab 81 Mg PO DAILY 07/11/16 Reported Neurontin (Gabapentin) 300 Mg Cap 300 Mg PO QID 12/12/13 Reported Zyloprim (Allopurinol) 300 Mg Tab 300 Mg PO DAILY 12/12/13 Reported Review of Systems Constitutional: No fever, No chills Eyes: No problem reported Respiratory: No cough, No shortness of breath, No dyspnea on exertion Cardiac: No chest pain Abdomen: + pain, + constipation, No nausea, No vomiting, No diarrhea Musculoskeletal: No joint pain Psych: No problem reported Endo: No problem reported Skin: No problem reported Physical Exam Date Time Temp Pulse Resp B/P (MAP) Pulse Ox O2 Delivery O2 Flow Rate FiO2 12/14/16 15:04 70 18 154/80 96 Room Air 12/14/16 14:19 86 20 161/88 97 12/14/16 11:49 76 16 150/79 93 12/14/16 10:36 36.8 90 18 97/61 93 Room Air General Appearance: WD/WN, no apparent distress Eyes: normal inspection, PERRL Respiratory/Chest: lungs clear Cardiovascular: regular rate, rhythm Abdomen: + pertinent finding (distended abdomen, high pitched bowel sounds, non tender on exam, no peritoneal signs) Extremities: non-tender Neurologic/Psych: alert, oriented x 3 Skin: normal color Laboratory Results Last 24 Hours Test 12/14/16 10:50 12/14/16 11:40 White Blood Count 11.12 K/uL Red Blood Count 5.03 M/uL Hemoglobin 15.8 g/dL Hematocrit 47.3 % Mean Corpuscular Volume 94.0 fL Mean Corpuscular Hemoglobin 31.4 pg Mean Corpuscular Hemoglobin Concent 33.4 g/dl Platelet Count 246 K/uL Mean Platelet Volume 10.3 fL Neutrophils (%) (Auto) 73.2 % Lymphocytes (%) (Auto) 14.0 % Monocytes (%) (Auto) 11.7 % Eosinophils (%) (Auto) 0.6 % Basophils (%) (Auto) 0.1 % Neutrophils # (Auto) 8.13 K/uL Lymphocytes # (Auto) 1.56 K/uL Monocytes # (Auto) 1.30 K/uL Eosinophils # (Auto) 0.07 K/uL Basophils # (Auto) 0.01 K/uL RDW Standard Deviation 46.5 fL RDW Coefficient of Variation 13.6 % Immature Granulocyte % (Auto) 0.4 % Immature Granulocyte # (Auto) 0.05 K/uL Sodium Level 136 mmol/L Potassium Level 3.4 mmol/L Chloride Level 99 mmol/L Carbon Dioxide Level 32 mmol/L Anion Gap 5.0 mmol/L Blood Urea Nitrogen 14 mg/dl Creatinine 1.20 mg/dl Est Creatinine Clear Calc Drug Dose 65.7 ml/min Estimated GFR () 68.1 Estimated GFR (Non- 58.8 BUN/Creatinine Ratio 11.3 Random Glucose 122 mg/dl Calcium Level 9.9 mg/dl Total Bilirubin 1.1 mg/dl Direct Bilirubin 0.2 mg/dl Aspartate Amino Transf (AST/SGOT) 21 U/L Alanine Aminotransferase (ALT/SGPT) 11 U/L Alkaline Phosphatase 120 U/L Total Protein 8.1 gm/dl Albumin 4.1 gm/dl Lipase 122 U/L Urine Color YELLOW Urine Appearance CLEAR Urine pH 8.5 Urine Specific [place] 1.019 Urine Protein NEG Urine Glucose (UA) NEG Urine Ketones NEG Urine Occult Blood NEG Urine Nitrite NEG Urine Bilirubin NEG Urine Urobilinogen NEG Urine Leukocyte Esterase MODERATE Urine WBC (Auto) 1-5 /hpf Urine RBC (Auto) 0-4 /hpf Urine Hyaline Casts (Auto) 1-5 /lpf Urine Epithelial Cells (Auto) 10-20 /lpf Urine Bacteria (Auto) NEG Impression Patient is a 75 year old male with a sigmoid volvulus. Plan 1) Keep NPO for endoscopic decompression tomorrow. 2) Should volvulus reoccur after decompression, agree with considering surgical intervention at that time. 3) Supportive care per primary team. Thank you for allowing us to participate in the care of this patient. If you should have any further questions or concerns, do not hesitate to contact us. Agree with Ysabel Miller PAC as above Abd: Distended, Hyperactive BS Colonoscopy in AM for decompression Appreciate surgical input
[2016-12-14 15:57] VITALS: O2SAT 96; Ht 182.9 cm; Wt 98.8 kg
[2016-12-14] MEDS ORDERED: HEPARIN SOD 5000 UNIT/0.5 ML CARP SQ ONE (16:00)
[2016-12-14] MEDS ORDERED: LORAZEPAM 2 MG/ML 1 ML VIAL IV PRN ×2 (16:00)
[2016-12-14] MEDS ORDERED: MoRPHine SULFATE 4 MG/ML 1 ML CARP\\VIAL IV PRN (16:00)
[2016-12-14] MEDS ORDERED: MoRPHine SULFATE 2 MG/ML CARP IV PRN (16:00)
--- NOTE | 2016-12-14 16:12 | EMERGENCY ROOM VISIT NOTE ---
History Report prepared by Evelia: Louann Bartlett Under the Supervision of: Dr. Lon Hopkins D.O. First contact with patient: 11:08 Chief Complaint: ABDOMINAL PAIN Stated Complaint: STOMACH PAIN W/BLOATING Nursing Triage Summary: pt to [facility] ED with c/o lower abd discomfort History of Present Illness The patient is a 75 year old male who presents to the Emergency Room with complaints of worsening generalized abdominal pain that started suddenly 5 days ago. The patient is also experiencing worsening abdominal distention which also started 5 days ago. The patient also experienced diarrhea 3 days ago which did not contain any blood. He is also experiencing nausea after eating, but states that he has been eating and drinking normally. He denies fevers, chills, chest pain, and shortness of breath. The patient was seen by his PCP at [facility] 3 days ago. His PCP told him to stop taking Metformin and recommended taking TUMS. He has not had a bowel movement for the last 2 days and he states that he has been unable to pass gas. The patient is scheduled to have surgery on a spinal effusion next week in [place]. He denies groin numbness and any weakness or numbness in his lower extremities. The patient is not on any blood thinners. The patient still has his gallbladder and appendix. The patient had a colectomy 3 years ago secondary to a large colonic polyp. He denies any history of bowel obstructions. Source of History: patient Onset: 5 days ago Position: abdomen (generalized) Quality: other (generalized abdominal pain) Timing: worsening Associated Symptoms: + nausea, + diarrhea, No fevers, No chills, No chest pain, No SOB, No weakness, No numbness (groin, lower extremities) Review of Systems See HPI for pertinent positives & negatives. A total of 10 systems reviewed and were otherwise negative. Past Medical & Surgical Medical Problems: (1) BENIGN HYPERTENSION (2) DIAB W KETOACIDOSIS, TYPE II OR UNSPEC TYPE, UNCONTROLLED (3) DIVERTICULOSIS COLON (W/O MENT OF HEMORRHAGE) (4) GOUT NOS (5) IDIO PERIPH NEURPTHY NOS (6) MIXED HYPERLIPIDEMIA (7) Volvulus Family History Diabetes mellitus FH: breast cancer Social History Smoking Status: Former Smoker Alcohol Use: none Drug Use: none Marital Status: , Housing Status: lives with significant other Occupation Status: retired Current/Historical Medications Scheduled Allopurinol (Zyloprim), 300 MG PO DAILY Aspirin (Aspirin Ec), 81 MG PO DAILY Carbidopa/Levodopa (Sinemet 25MG/100MG), 1 TAB PO TID Cholecalciferol (Vitamin D3), 2,000 UNITS PO DAILY Cyanocobalamin (Vitamin B12), 1,000 MCG PO DAILY Gabapentin (Neurontin), 300 MG PO QID Polyethylene Glycol 3350 (Bulk (Polyethylene Glycol 3350), 17 GM PO BID Ranitidine (Zantac), 150 MG PO BID Sertraline (Zoloft), 1 TAB PO DAILY Scheduled PRN Clonazepam (Klonopin), 0.25-0.5 MG PO HS PRN for Sleep Miconazole Nitrate (Desenex Shake Powder), 1 APPLN EXT BID PRN for Affected Skin Folds Ondansetron Hcl (Zofran), 4 MG PO q6hrs PRN for Nausea Allergies Coded Allergies: No Known Allergies (Verified , 07/11/16) Physical Exam Vital Signs Date Time Temp Pulse Resp B/P (MAP) Pulse Ox O2 Delivery O2 Flow Rate FiO2 12/14/16 15:04 70 18 154/80 96 Room Air 12/14/16 14:19 86 20 161/88 97 12/14/16 11:49 76 16 150/79 93 12/14/16 10:36 36.8 90 18 97/61 93 Room Air Physical Exam GENERAL: alert, sitting up in bed, disheveled, well appearing, well nourished, mild distress, non-toxic EYE EXAM: normal conjunctiva OROPHARYNX: no exudate, no erythema, lips, buccal mucosa, and tongue normal and mucous membranes are moist NECK: supple, no nuchal rigidity, no adenopathy, non-tender LUNGS: Clear to auscultation. Normal chest wall mechanics HEART: no murmurs, S1 normal and S2 normal ABDOMEN: abdomen large and distended, minimal diffuse tenderness, hypoactive bowel sounds BACK: Back is symmetrical on inspection and there is no deformity, no midline tenderness, no CVA tenderness. UPPER EXTREMITIES: upper extremities are grossly normal. LOWER EXTREMITIES: No pitting edema. NEURO EXAM: Normal sensorium, cranial nerves II-XII grossly intact, normal speech, no gross weakness of arms, no gross weakness of legs. Medical Decision & Procedures ER Provider Diagnostic Interpretation: Radiology results as stated below per my review and the radiologist's interpretation: CT SCAN OF THE ABDOMEN AND PELVIS WITH IV CONTRAST FINDINGS: Lung bases: The heart is enlarged and without pericardial effusion. There are coronary artery calcifications. The lung bases are clear noting bibasilar atelectasis. There is a tiny hiatal hernia. Liver: The contrast-enhanced liver is normal in size, contour, and attenuation. There is no intrahepatic biliary ductal dilatation. The hepatic veins and portal veins are patent. Gallbladder: Unremarkable. Spleen: Normal in size and attenuation. There are calcified splenic granulomas. Pancreas: Atrophic and grossly unremarkable. Adrenal glands: Unremarkable. Kidneys: The contrast enhanced kidneys are atrophic and without hydronephrosis. Next renal pelvises noted on the left. The kidneys enhance symmetrically. A left renal cyst measures 8.5 cm. Abdominal vasculature: The abdominal aorta is normal in course and caliber noting advanced atherosclerotic calcification. Bowel: There are postoperative changes from right hemicolectomy with ileocolic anastomosis. The small bowel loops are normal in caliber. The sigmoid colon is tortuous. There is focal twisting of the sigmoid colon upon itself seen to the right of midline in the pelvis on axial image #[id number]. The upstream sigmoid colon is distended and gas-filled number up to 8.5 cm in diameter. There is inflammatory stranding with vascular congestion and trace fluid seen around the twisted loop in the pelvis on axial image #309. The appearance is consistent with sigmoid volvulus. No wall thickening is identified. The more proximal colon is distended with gas and fluid. Scattered colonic diverticula are noted. Peritoneum: There is no intraperitoneal free air or abdominal ascites. Lymphadenopathy: None. Pelvic viscera: The prostate gland is enlarged and heterogeneous measuring 5.7 cm in transverse diameter. There is median lobe hypertrophy. The bladder wall is mildly thickened and trabeculated consistent with chronic outlet obstruction. Skeletal structures: The skeletal structures are osteopenic. There is a mild compression deformity of L5. Moderate to advanced lumbosacral spondylosis is observed. No lytic or blastic lesions are seen. IMPRESSION: 1. Streak and motion artifact degraded examination 2. Findings are consistent with sigmoid volvulus. There is mesenteric edema with venous engorgement around the twisted loop in the pelvis. Surgical consultation is advised. 3. The upstream colon is distended and fluid-filled. No intraperitoneal free air is seen. 4. There are postoperative changes from right hemicolectomy with ileocolic anastomosis. The small bowel loops are normal in caliber. 5. Cardiomegaly. 6. Prostatomegaly with evidence of chronic bladder outlet obstruction. 7. Additional findings as above. Electronically signed by: Darío Pryor M.D. 12/14/2016 12:46 PM Dictated Date/Time: 12/14/2016 12:34 PM Laboratory Results 12/14/16 10:50 Red Blood Count 5.03, Mean Corpuscular Volume 94.0, Mean Corpuscular Hemoglobin 31.4, Mean Corpuscular Hemoglobin Concent 33.4, Mean Platelet Volume 10.3, Neutrophils (%) (Auto) 73.2, Lymphocytes (%) (Auto) 14.0, Monocytes (%) (Auto) 11.7, Eosinophils (%) (Auto) 0.6, Basophils (%) (Auto) 0.1, Neutrophils # (Auto ) 8.13, Lymphocytes # (Auto) 1.56, Monocytes # (Auto) 1.30, Eosinophils # (Auto ) 0.07, Basophils # (Auto) 0.01 12/14/16 10:50 Test 12/14/16 10:50 12/14/16 11:40 12/14/16 16:02 White Blood Count 11.12 K/uL (4.8-10.8) Red Blood Count 5.03 M/uL (4.7-6.1) Hemoglobin 15.8 g/dL (14.0-18.0) Hematocrit 47.3 % (42-52) Mean Corpuscular Volume 94.0 fL (80-100) Mean Corpuscular Hemoglobin 31.4 pg (25-34) Mean Corpuscular Hemoglobin Concent 33.4 g/dl (32-36) Platelet Count 246 K/uL (130-400) Mean Platelet Volume 10.3 fL (7.4-10.4) Neutrophils (%) (Auto) 73.2 % Lymphocytes (%) (Auto) 14.0 % Monocytes (%) (Auto) 11.7 % Eosinophils (%) (Auto) 0.6 % Basophils (%) (Auto) 0.1 % Neutrophils # (Auto) 8.13 K/uL (1.4-6.5) Lymphocytes # (Auto) 1.56 K/uL (1.2-3.4) Monocytes # (Auto) 1.30 K/uL (0.11-0.59) Eosinophils # (Auto) 0.07 K/uL (0-0.5) Basophils # (Auto) 0.01 K/uL (0-0.2) RDW Standard Deviation 46.5 fL (36.4-46.3) RDW Coefficient of Variation 13.6 % (11.5-14.5) Immature Granulocyte % (Auto) 0.4 % Immature Granulocyte # (Auto) 0.05 K/uL (0.00-0.02) Anion Gap 5.0 mmol/L (3-11) Est Creatinine Clear Calc Drug Dose 65.7 ml/min Estimated GFR () 68.1 Estimated GFR (Non- 58.8 BUN/Creatinine Ratio 11.3 (10-20) Calcium Level 9.9 mg/dl (8.5-10.1) Total Bilirubin 1.1 mg/dl (0.2-1) Direct Bilirubin 0.2 mg/dl (0-0.2) Aspartate Amino Transf (AST/SGOT) 21 U/L (15-37) Alanine Aminotransferase (ALT/SGPT) 11 U/L (12-78) Alkaline Phosphatase 120 U/L (45-117) Total Protein 8.1 gm/dl (6.4-8.2) Albumin 4.1 gm/dl (3.4-5.0) Lipase 122 U/L (73-393) Urine Color YELLOW Urine Appearance CLEAR (CLEAR) Urine pH 8.5 (4.5-7.5) Urine Specific [place] 1.019 (1.000-1.030) Urine Protein NEG (NEG) Urine Glucose (UA) NEG (NEG) Urine Ketones NEG (NEG) Urine Occult Blood NEG (NEG) Urine Nitrite NEG (NEG) Urine Bilirubin NEG (NEG) Urine Urobilinogen NEG (NEG) Urine Leukocyte Esterase MODERATE (NEG) Urine WBC (Auto) 1-5 /hpf (0-5) Urine RBC (Auto) 0-4 /hpf (0-4) Urine Hyaline Casts (Auto) 1-5 /lpf (0-5) Urine Epithelial Cells (Auto) 10-20 /lpf (0-5) Urine Bacteria (Auto) NEG (NEG) Laboratory results per my review. Medications Administered Medications (Trade) Dose Ordered Sig/[place] Route Start Time Stop Time Status Last Admin Dose Admin Sodium Chloride 1,000 ml @ 999 mls/hr Q1H1M STAT IV 12/14/16 11:39 12/14/16 12:39 DC 12/14/16 11:49 999 MLS/HR Sodium Chloride 500 ml @ 999 mls/hr Q31M STAT IV 12/14/16 14:14 12/14/16 14:44 DC 12/14/16 14:22 999 MLS/HR ED Course ED COURSE: Vital signs were reviewed and showed hypotension. The patients medical record was reviewed The above diagnostic studies were performed and reviewed. ED treatments and interventions as stated above. 1139: Ordered Sodium Chloride 1000 ml @ 999 mls/hr IV 1141: The patient was evaluated in room B5. A complete history and physical examination was performed. 1357: I reviewed the patient's case with Dr. Taylor - General Surgery. He will evaluate the patient for further management. 1401: Upon reevaluation, the patient is resting comfortably. I discussed my findings with the patient and he understands and agrees with the treatment plan. Based on the patients age, coexisting illnesses, exam and lab findings the decision to treat as an inpatient was made. The patient remained stable while under my care. The patient will be evaluated for further management. 1414: Ordered Sodium Chloride 500 ml @ 999 mls/hr IV 1421: I reviewed the patient's case with Chandler BLUM. She will evaluate the patient for further management. 1426: I reviewed the patient's case with Dr. Yamilex Blancas of the [facility]. He will evaluate the patient for further management. 1443: I reassessed the patient. Surgery is at bedside. Medical Decision Differential diagnoses includes but is not limited to gastritis, peptic ulcer disease, GERD, gallbladder disease, pancreatitis, small bowel obstruction, acute coronary syndrome, pericarditis, ischemic bowel, irritable bowel disease, irritable bowel syndrome, appendicitis, diverticulitis, malignancy, hernia, urinary tract infection, torsion, perforation, trauma, infectious. Patient is a 75-year-old male who presents the ER for abdominal distention and abdominal pain. Labs including CBC, BMP, LFTs, bilirubin are fairly unremarkable. Normal lipase. UA was negative. CT of abdomen and pelvis shows sigmoid volvulus. Patient was given fluids. Patient was given IV pain meds. Discussed case with general surgery and GI. General surgery recommended admission to internal medicine. Consequently consulted internal medicine. Updated family at bedside. Medication Reconcilliation Current Medication List: was personally reviewed by me Blood Pressure Screening Patient's blood pressure: Low blood pressure Consults Time Called: 1341 Consulting Physician: Dr. Taylor - General Surgery Returned Call: 1357 I reviewed the patient's case with Dr. Taylor - General Surgery. He will evaluate the patient for further management. Additional Consults: Time Called: 1414 Consulted Physician: Chandler BLUM Returned Call: 1421 Additional Comments: I reviewed the patient's case with Chandler BLUM. She will evaluate the patient for further management. Time Called: 142 Consulted Physician: Dr. Yamilex Blancas Returned Call: 1425 Additional Comments: I reviewed the patient's case with Dr. Yamilex Blancas of the [facility]. He will evaluate the patient for further management. Impression Primary Impression: Sigmoid volvulus Scribe Attestation The scribe's documentation has been prepared under my direction and personally reviewed by me in its entirety. I confirm that the note above accurately reflects all work, treatment, procedures, and medical decision making performed by me. Departure Information Dispostion Being Evaluated By Hospitalist Referrals John Rayo M.D. (PCP) Patient Instructions My [facility]
[2016-12-14 16:21] LABS: PROTHROMBIN TIME (PATIENT) 11.1 SECONDS (9.0-12.0)
[2016-12-14 17:10] VITALS: BP 131/67; PULSE 75; TEMP 36.6; O2SAT 94
[2016-12-14] MEDS ORDERED: LORAZEPAM INJ 1 MG in SYRINGE 0.5 ML IV PRN (17:30)
[2016-12-14] MEDS ORDERED: LORAZEPAM INJ 0.5 MG in SYRINGE 0.75 ML IV PRN (17:30)
[2016-12-14] MEDS: SODIUM CHLORIDE 0.9% 1000ML 1,000 ML IV SCH (17:53)
[2016-12-14] MEDS: RANITIDINE IV 50 MG in DEXTROSE 5% 100ML 100 ML IV SCH (18:08)
[2016-12-14] MEDS ORDERED: NURSING VERBAL MED ORDER ONE (19:45)
[2016-12-14] MEDS ORDERED: LAVAGE SOLUTION 4000ML PO SCH (20:00)
[2016-12-14] MEDS ORDERED: INSULIN ASPART 100 UNITS/ML 3 ML PEN SC SCH (21:00)
[2016-12-14] MEDS: CARBIDOPA/LEVODOPA 25/100MG TAB PO SCH (21:06)
[2016-12-14] MEDS: ONDANSETRON INJ 2 MG/ML 2 ML VIAL IV PRN (22:41)
[2016-12-14 23:00] VITALS: BP 159/86; PULSE 89; TEMP 36.9; O2SAT 93
[2016-12-15] VITALS (10 sets, daily range): BP systolic 143–165; BP diastolic 70–84; PULSE 65–94; TEMP 36.5–37.4; O2SAT 94–96
[2016-12-15] MEDS ORDERED: NURSING VERBAL MED ORDER ONE (01:30)
[2016-12-15] MEDS: RANITIDINE IV 50 MG in DEXTROSE 5% 100ML 100 ML IV SCH ×3 (02:35→18:22)
[2016-12-15] MEDS: SODIUM CHLORIDE 0.9% 1000ML 1,000 ML IV SCH ×2 (02:36→16:04)
[2016-12-15] MEDS: INSULIN ASPART 100 UNITS/ML 3 ML PEN SC SCH ×3 (05:36→18:00)
[2016-12-15] MEDS: ONDANSETRON INJ 2 MG/ML 2 ML VIAL IV PRN (05:47)
[2016-12-15 06:55] LABS: HEMATOCRIT 44.2 % (42-52); MEAN CELL VOLUME 93.2 fL (80-100); MEAN CORPUSCULAR HGB CONC 33.3 g/dl (32-36); MEAN PLATELET VOLUME 10.2 fL (7.4-10.4); PLATELET COUNT 244 K/uL (130-400); RED BLOOD COUNT 4.74 M/uL (4.7-6.1); WHITE BLOOD COUNT 13.39 K/uL (4.8-10.8)
[2016-12-15 07:29] LABS: BUN/CREATININE RATIO 13.4 (10-20); CALCIUM 8.9 mg/dl (8.5-10.1); CREATININE 1.1 mg/dl (0.60-1.40); POTASSIUM 3.1 mmol/L (3.5-5.1)
[2016-12-15] MEDS: CARBIDOPA/LEVODOPA 25/100MG TAB PO SCH ×3 (08:54→21:21)
--- NOTE | 2016-12-15 09:08 | Hospitalist Progress Note ---
Hospitalist Progress Note Date of Service Dec 15, 2016. (Avelina Fermin PA-C) Subjective Pt evaluation today including: conversation w/ patient, conversation w/ family , physical exam, chart review, lab review PO Intake: NPO The patient was seen and examined this morning. Pts daughter is present at bedside. The patient notes he has no abdominal pain, but now is nauseous, and has vomited several times this morning, and feels more uncomfortable. He has a difficult time taking deep breaths this morning due to abd distension. He denies any fevers, sweats, chills, chest pain or shortness of breath. Concerns and questions that his daughter had were answered/addressed. Additional Comments: Constitutional: No fever, sweats or chills Eyes: No diplopia, no worsening or blurred vision ENT: normal hearing, no trouble swallowing Respiratory: No cough, sputum, dyspnea at rest or on exertion,+ on 2 L via NC and normally does not require supplemental O2 Cardiovascular: No chest pain, tightness or palpitations Abdomen: + abdominal distension, + nausea, + vomiting, Last BM on 12/12 Musculoskeletal: No joint pain, calf pain, swelling Neurologic: No weakness, numbness/tingling (Avelina Fermin PA-C) Objective Vital Signs Date Time Temp Pulse Resp B/P (MAP) Pulse Ox O2 Delivery O2 Flow Rate FiO2 12/15/16 07:36 37.2 94 17 165/84 (111) 94 88 12/15/16 07:30 Nasal Cannula 2.0 12/15/16 00:43 77 94 12/14/16 23:00 Room Air 12/14/16 23:00 36.9 89 22 159/86 (110) 93 Room Air 12/14/16 17:10 Room Air 12/14/16 17:10 36.6 75 18 131/67 (88) 94 Room Air 12/14/16 16:56 75 20 140/80 93 12/14/16 16:53 78 18 140/80 93 Room Air 12/14/16 15:57 96 Room Air 12/14/16 15:04 70 18 154/80 96 Room Air 12/14/16 14:19 86 20 161/88 97 12/14/16 11:49 76 16 150/79 93 12/14/16 10:36 36.8 90 18 97/61 93 Room Air (Avelina Fermin PA-C) Physical Exam Notes: General: awake, alert, NAD, uncomfortable. Head: Normocephalic, atraumatic ENT: PERRL, EOMI, no pharyngeal exudate, mucous membranes moist Chest: Clear to auscultation, on 2L via NC, no adventitious breath sounds Cardiac: Regular rate and rhythm, no murmur, no JVD, normal peripheral pulses, good capillary refill Abdominal: + Distention, high-pitched bowel sounds in RLQ, very hypoactive bowel sounds in other quadrants, + nausea and vomiting at bedside, + discomfort with palpation by pt denies pain, no rebound, guarding or tenderness Extremities: + abrasion over R gautam, otherwise normal inspection, no peripheral edema or erythema, calfs nontender to palpation Psych: Normal mood and affect Neuro: AAO x 3, speech is clear, no peripheral sensory deficits (Avelina Fermin PA-C) Laboratory Results Last 24 Hours Test 12/14/16 10:50 12/14/16 11:40 12/14/16 20:54 12/15/16 05:33 White Blood Count 11.12 K/uL Red Blood Count 5.03 M/uL Hemoglobin 15.8 g/dL Hematocrit 47.3 % Mean Corpuscular Volume 94.0 fL Mean Corpuscular Hemoglobin 31.4 pg Mean Corpuscular Hemoglobin Concent 33.4 g/dl Platelet Count 246 K/uL Mean Platelet Volume 10.3 fL Neutrophils (%) (Auto) 73.2 % Lymphocytes (%) (Auto) 14.0 % Monocytes (%) (Auto) 11.7 % Eosinophils (%) (Auto) 0.6 % Basophils (%) (Auto) 0.1 % Neutrophils # (Auto) 8.13 K/uL Lymphocytes # (Auto) 1.56 K/uL Monocytes # (Auto) 1.30 K/uL Eosinophils # (Auto) 0.07 K/uL Basophils # (Auto) 0.01 K/uL RDW Standard Deviation 46.5 fL RDW Coefficient of Variation 13.6 % Immature Granulocyte % (Auto) 0.4 % Immature Granulocyte # (Auto) 0.05 K/uL Prothrombin Time 11.1 SECONDS Prothromb Time International Ratio 1.0 Sodium Level 136 mmol/L Potassium Level 3.4 mmol/L Chloride Level 99 mmol/L Carbon Dioxide Level 32 mmol/L Anion Gap 5.0 mmol/L Blood Urea Nitrogen 14 mg/dl Creatinine 1.20 mg/dl Est Creatinine Clear Calc Drug Dose 65.7 ml/min Estimated GFR () 68.1 Estimated GFR (Non- 58.8 BUN/Creatinine Ratio 11.3 Random Glucose 122 mg/dl Calcium Level 9.9 mg/dl Total Bilirubin 1.1 mg/dl Direct Bilirubin 0.2 mg/dl Aspartate Amino Transf (AST/SGOT) 21 U/L Alanine Aminotransferase (ALT/SGPT) 11 U/L Alkaline Phosphatase 120 U/L Total Protein 8.1 gm/dl Albumin 4.1 gm/dl Lipase 122 U/L Urine Color YELLOW Urine Appearance CLEAR Urine pH 8.5 Urine Specific [place] 1.019 Urine Protein NEG Urine Glucose (UA) NEG Urine Ketones NEG Urine Occult Blood NEG Urine Nitrite NEG Urine Bilirubin NEG Urine Urobilinogen NEG Urine Leukocyte Esterase MODERATE Urine WBC (Auto) 1-5 /hpf Urine RBC (Auto) 0-4 /hpf Urine Hyaline Casts (Auto) 1-5 /lpf Urine Epithelial Cells (Auto) 10-20 /lpf Urine Bacteria (Auto) NEG Bedside Glucose 94 mg/dl 138 mg/dl Test 12/15/16 06:31 White Blood Count 13.39 K/uL Red Blood Count 4.74 M/uL Hemoglobin 14.7 g/dL Hematocrit 44.2 % Mean Corpuscular Volume 93.2 fL Mean Corpuscular Hemoglobin 31.0 pg Mean Corpuscular Hemoglobin Concent 33.3 g/dl RDW Standard Deviation 46.6 fL RDW Coefficient of Variation 13.6 % Platelet Count 244 K/uL Mean Platelet Volume 10.2 fL Sodium Level 140 mmol/L Potassium Level 3.1 mmol/L Chloride Level 100 mmol/L Carbon Dioxide Level 30 mmol/L Anion Gap 10.0 mmol/L Blood Urea Nitrogen 15 mg/dl Creatinine 1.10 mg/dl Est Creatinine Clear Calc Drug Dose 71.7 ml/min Estimated GFR () 75.7 Estimated GFR (Non- 65.3 BUN/Creatinine Ratio 13.4 Random Glucose 140 mg/dl Calcium Level 8.9 mg/dl (Avelina Fermin PA-C) Assessment and Plan This is a 75 yo M with PMHx of T2DM with Diabetic Neuropathy, HTN, Gout, LEN on CPAP, 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 Sigmoid Volvulus - Vitals are stable, + high pitch abdominal sounds in RUQ, hypoactive bowel sounds otherwise, + distension slightly worse, + N/V - GI eval for decompression this morning - Surgical consult placed and plan to follow along n case there are needs for surgical decompression.- I spoke with Dr. Taylor this morning and he is aware of the patient. He reports that Dr. Gill is on consult over the weekend in case there are needs tomorrow. - CT 12/14 reviewed showing sigmoid volvulus and appears to be 8 cm at the largest point - Hx of diabetic gastroparesis - Antiemetic with IV zofran prn - PT/OT after decompression T2DM with Diabetic Neuropathy: A1c 5.9 (07/12/16) - Pt was just taken off metformin by his PCP on Sunday, Last Hgb A1C was 5.9 in Jun 2016 be our records. - ISS with Accu-Cheks ACHS Hypokalemia - K+ replaced this morning 40 meq IV Restless leg syndrome - Gabapentin 300 mg QID once PO intake allowed - Continue Carbidopa levodopa 25-100 mg TID HTN: - Cont asa 81 mg daily once PO intake allowed Gout: - Allopurinol 300 mg daily once PO intake allowed LEN: - Will order CPAP tonight as he lives in [place], allow ativan IV prn for claustrophobia with cpap and anxiety with hospital stay. - clonazepam held due to holding PO meds - Continue sertraline 25 mg daily when able to take PO DVT Prophylaxis: Heparin subcutaneous, teds, scds Code Status: FULL RESUSCITATION Disposition: Patient from home, 2 sons live with him, PT/OT to eval (Avelina Fermin PA-C) PA Physician Supervision Note: I interviewed and examined the patient. Discussed with Avelina Fermin PAC and agree with findings and plan as documented in the note. Any exceptions or clarifications are listed here: None Patient presented with distended abdomen, has a history of a hemicolectomy for benign tumor, CT scan of the ER is consistent with sigmoid volvulus. Gastroenterology performed decompression colonoscopy on December 15. Dr Case reported feeling of incomplete resolution, surgery was notified and will be involved in watchful waiting, as if colonic surgery is needed would be best with a bowel prep, check lactic acid in am with labs, replete K Patient is an only in mild discomfort having crampy abdominal, pain upon resolution of the cramps has no pain. Vital signs are stable Heart is regular lungs are clear Abdomen is less distended continues to be tympanitic hypoactive bowel sounds pain is controlled Sigmoid volvulus, decompressive colonoscopy, surgery to follow continues with, pain control with IV morphine, anxiety with IV Ativan and as needed antiemetics clear liquids, npo in am Documented By: Samuel Bee (Samuel Bee M.D.)
[2016-12-15] MEDS: POTASSIUM CHLR 10 MEQ / WTR 10 MEQ in PREMIXED WATER 100 ML IV SCH ×4 (10:23→17:19)
[2016-12-15] MEDS ORDERED: LIDOCAINE HCL 2% 2 ML VIAL (20MG/ML) ONE (14:30)
[2016-12-15] MEDS ORDERED: PROPOFOL IV EMULSION 10 MG/ML 20 ML VIAL IV ONE (14:30)
--- NOTE | 2016-12-15 14:43 | GI REPORT ---
Procedure Date: 12/15/2016 1:28 PM Procedure: Colonoscopy Indications: For therapy of volvulus Medicines: Monitored Anesthesia Care Complications: No immediate complications. Estimated Blood Loss: Estimated blood loss: none. Procedure: Pre-Anesthesia Assessment: - Prior to the procedure, a History and Physical was performed, and patient medications and allergies were reviewed. The patient's tolerance of previous anesthesia was also reviewed. The risks and benefits of the procedure and the sedation options and risks were discussed with the patient. All questions were answered, and informed consent was obtained. Prior Anticoagulants: The patient has taken aspirin, last dose was 3 days prior to procedure. ASA Grade Assessment: III - A patient with severe systemic disease. After reviewing the risks and benefits, the patient was deemed in satisfactory condition to undergo the procedure. After I obtained informed consent, the scope was passed under direct vision. Throughout the procedure, the patient's blood pressure, pulse, and oxygen saturations were monitored continuously. The On-site loaner was introduced through the anus with the intention of advancing to the ileum. The scope was advanced to the transverse colon before the procedure was aborted. Medications were given. The colonoscopy was performed with moderate difficulty due to inadequate bowel prep. Successful completion of the procedure was aided by changing the patient to a supine position and using manual pressure. The patient tolerated the procedure fairly well. The quality of the bowel preparation was unsatisfactory. The rectum was photographed. Findings: Discontinuous areas of nonbleeding ulcerated mucosa with no stigmata of recent bleeding were present in the sigmoid colon, in the descending colon and in the transverse colon. Decompression of the volvulus was attempted, and partial decompression was achieved. Copious quantities of liquid semi-solid stool was found in the rectum, in the sigmoid colon, in the descending colon and in the transverse colon, interfering with visualization. Lavage of the area was performed using copious amounts, resulting in incomplete clearance with continued poor visualization. Impression: - Preparation of the colon was unsatisfactory. - Mucosal ulceration. - Stool in the rectum, in the sigmoid colon, in the descending colon and in the transverse colon. - No specimens collected. Recommendation: - [facility]. - Cipro (ciprofloxacin) 400 mg IV q 12 hr for 10 days. - Flagyl (metronidazole) 500 mg IV loading dose followed by 500 mg IV q 8 hr for 10 days. - Refer to a surgeon today. Jerome Jensen DO 12/15/2016 2:43:31 PM This report has been signed electronically. Note Initiated On: 12/15/2016 1:28 PM I attest to the content of the Intraoperative Record and orders documented therein, exceptions below
--- NOTE | 2016-12-15 14:52 | Anesthesiology Progress Note ---
Anesthesia Post Op Note Date & Time Dec 15, 2016 at 14:52 Vital Signs Pain Intensity: 4 Vital Signs Past 12 Hours Date Time Temp Pulse Resp B/P (MAP) Pulse Ox O2 Delivery O2 Flow Rate FiO2 12/15/16 14:50 82 20 168/82 (110) 95 Nasal Cannula 3 12/15/16 14:40 80 20 156/81 (106) 96 Nasal Cannula 3 12/15/16 12:24 37.1 84 20 159/93 (115) 94 Nasal Cannula 3 12/15/16 11:58 37.4 81 16 163/81 95 Nasal Cannula 2.0 12/15/16 07:36 37.2 94 17 165/84 (111) 94 88 12/15/16 07:30 Nasal Cannula 2.0 Notes Mental Status: alert / awake / arousable, participated in evaluation Pt Amnestic to Procedure: Yes Nausea / Vomiting: adequately controlled Pain: adequately controlled Airway Patency, RR, SpO2: stable & adequate BP & HR: stable & adequate Hydration State: stable & adequate Anesthetic Complications: no major complications apparent
[2016-12-15] MEDS: CIPROFLOXACIN / D5W 400 MG in PREMIXED IN D5W 200 ML IV SCH (16:16)
[2016-12-15] MEDS: NSS + 20MEQ KCL 1000ML 1,000 ML IV SCH (18:22)
[2016-12-15] MEDS: METRONIDAZOLE / NSS 500 MG in PREMIXED NSS 100 ML IV SCH (18:22)
[2016-12-16] MEDS: RANITIDINE IV 50 MG in DEXTROSE 5% 100ML 100 ML IV SCH ×3 (02:29→18:34)
[2016-12-16] MEDS: METRONIDAZOLE / NSS 500 MG in PREMIXED NSS 100 ML IV SCH ×3 (02:29→18:34)
[2016-12-16] MEDS: NSS + 20MEQ KCL 1000ML 1,000 ML IV SCH ×3 (03:48→23:34)
[2016-12-16] MEDS: CIPROFLOXACIN / D5W 400 MG in PREMIXED IN D5W 200 ML IV SCH ×2 (03:48→15:40)
[2016-12-16] MEDS: INSULIN ASPART 100 UNITS/ML 3 ML PEN SC SCH ×5 (06:00→23:35)
[2016-12-16 07:26] VITALS: BP 158/69; PULSE 62; TEMP 37; O2SAT 92
[2016-12-16 07:57] LABS: BUN/CREATININE RATIO 12.9 (10-20); CALCIUM 7.9 mg/dl (8.5-10.1); CREATININE 0.95 mg/dl (0.60-1.40); MAGNESIUM 2.1 mg/dl (1.8-2.4); POTASSIUM 3.1 mmol/L (3.5-5.1)
--- NOTE | 2016-12-16 08:06 | Hospitalist Progress Note ---
Hospitalist Progress Note Date of Service Dec 16, 2016. (Avelina Fermin PA-C) Subjective Pt evaluation today including: conversation w/ patient, conversation w/ family , physical exam, chart review, lab review, review of studies, conversation w/ insurance healthcare consultant Pain: None PO Intake: NPO Voiding: no voiding problems The patient is still very distended and has discomfort but denies any pain. He is not nauseous or vomiting this morning, but reports having multiple bowel movements overnight. Pt was seen with Dr. Ayala, who is taking him to the endoscopy suite for acute decompression and rectal tube placement now. Constitutional: No fever, No chills, No sweats Eyes: No discharge, No diplopia ENT: No nasal symptoms, No trouble swallowing Respiratory: No shortness of breath, No dyspnea on exertion Cardiovascular: No chest pain, No palpitations Abdomen: No pain, No nausea, No vomiting, No diarrhea, No constipation Musculoskeletal: No joint pain, No muscle pain Male : No dysuria, No incontinence Neurologic: No weakness, No numbness/tingling Endo: No fatigue (Avelina Fermin PA-C) Objective Vital Signs Date Time Temp Pulse Resp B/P (MAP) Pulse Ox O2 Delivery O2 Flow Rate FiO2 12/16/16 07:26 37.0 62 16 158/69 (98) 92 Room Air 12/15/16 23:20 Room Air 12/15/16 22:55 36.8 74 16 145/78 (100) 96 Room Air 12/15/16 19:00 36.8 65 16 150/73 (98) 95 Nasal Cannula 2.0 12/15/16 17:55 36.9 74 16 154/70 (98) 95 2.0 12/15/16 16:55 36.5 75 16 148/74 (98) 94 Nasal Cannula 2.0 12/15/16 16:25 36.5 84 18 148/77 (100) 94 Nasal Cannula 2.0 12/15/16 15:55 36.5 82 18 143/77 (99) 96 Nasal Cannula 2.0 12/15/16 15:20 96 Nasal Cannula 2.0 12/15/16 15:15 80 20 165/84 (111) 96 Nasal Cannula 3 12/15/16 15:00 81 20 166/80 (108) 96 Nasal Cannula 3 12/15/16 14:50 82 20 168/82 (110) 95 Nasal Cannula 3 12/15/16 14:40 80 20 156/81 (106) 96 Nasal Cannula 3 12/15/16 12:24 37.1 84 20 159/93 (115) 94 Nasal Cannula 3 12/15/16 11:58 37.4 81 16 163/81 95 Nasal Cannula 2.0 (Avelina Fermin PA-C) Physical Exam Notes: General: awake, alert, NAD, uncomfortable Head: Normocephalic, atraumatic ENT: PERRL, EOMI, no pharyngeal exudate, mucous membranes moist Chest: Clear to auscultation, on 2L via NC, no adventitious breath sounds Cardiac: Regular rate and rhythm, no murmur, no JVD, normal peripheral pulses, good capillary refill Abdominal: + Distention severe, active bowel sounds in 4 quad, + tympany on percussion, + discomfort with palpation by pt denies pain, no rebound, guarding or tenderness Extremities: + abrasion over R gautam, otherwise normal inspection, no peripheral edema or erythema, calfs nontender to palpation Psych: Normal mood and affect Neuro: AAO x 3, speech is clear, no peripheral sensory deficits (Avelina Fermin PA-C) Laboratory Results Last 24 Hours Test 12/15/16 11:49 12/15/16 16:59 12/15/16 21:03 12/15/16 23:32 Bedside Glucose 138 mg/dl 135 mg/dl 94 mg/dl 97 mg/dl Test 12/16/16 05:40 12/16/16 07:14 Bedside Glucose 111 mg/dl Sodium Level 139 mmol/L Potassium Level 3.1 mmol/L Chloride Level 105 mmol/L Carbon Dioxide Level 28 mmol/L Anion Gap 6.0 mmol/L Blood Urea Nitrogen 12 mg/dl Creatinine 0.95 mg/dl Est Creatinine Clear Calc Drug Dose 83.0 ml/min Estimated GFR () 90.4 Estimated GFR (Non- 78.0 BUN/Creatinine Ratio 12.9 Random Glucose 109 mg/dl Calcium Level 7.9 mg/dl Magnesium Level 2.1 mg/dl (Filipowicz,Avelina G., PA-C) Assessment and Plan This is a 75 yo M with PMHx of T2DM with Diabetic Neuropathy, HTN, Gout, LEN on CPAP, 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 Sigmoid Volvulus - Vitals are stable, active bowel sounds x 4 quad but still severely distended, not acutely nauseous or vomiting this morning. - Pt underwent decompression via colonoscopy by GI on 12/15 which was partially resolved. General Surgery including Brandon and Dr. 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 - Spoke with Dr. Ayala at bedside who is planning to take the patient to emergent decompression and placement for rectal tube. He is recommending a transfer to tertiary care center if there are no plans for surgical intervention here. - started on cipro and flagyl 12/15 for concerns of gastritis seen on colonoscopy and GI recommending this x 24 hours before any intervention. - CT 12/14 reviewed showing sigmoid volvulus and appears to be 8 cm at the largest point - Hx of diabetic gastroparesis - Antiemetic with IV zofran prn - PT/OT after decompression T2DM with Diabetic Neuropathy: A1c 5.9 (07/12/16) - Pt was just taken off metformin by his PCP on Sunday, Last Hgb A1C was 5.9 in Jun 2016 be our records. - ISS with Accu-Cheks ACHS Hypokalemia - K+ replaced 40 meq IV Restless leg syndrome - Gabapentin 300 mg QID once PO intake allowed - Continue Carbidopa levodopa 25-100 mg TID HTN: - Cont asa 81 mg daily once PO intake allowed Gout: - Allopurinol 300 mg daily once PO intake allowed LEN: - Will order CPAP tonight as he lives in [place], allow ativan IV prn for claustrophobia with cpap and anxiety with hospital stay. - clonazepam held due to holding PO meds - Continue sertraline 25 mg daily when able to take PO DVT Prophylaxis: Heparin subcutaneous, teds, scds Code Status: FULL RESUSCITATION Disposition: Patient from home, undergoing decompression this morning by Dr. Ayala, may need surgical decompression (Avelina Fermin, LILIA) PA Physician Supervision Note: I interviewed and examined the patient. Discussed with Avelina Fermin PAC and agree with findings and plan as documented in the note. Any exceptions or clarifications are listed here: None Patient presented with distended abdomen, has a history of a hemicolectomy for benign tumor, CT scan of the ER is consistent with sigmoid volvulus. Gastroenterology performed decompression colonoscopy on December 15. morning of , re distension and return to endoscopy suit, re decompressed and rectal tube placed, if reaccumulation will refer to surgery Patient remains with distended abdomen, mild discomfort less than expected for amount of distension at bedside and on x ray Vital signs are stable Heart is regular lungs are clear Abdomen is distended, tympany, hypoactive bowel sounds Sigmoid volvulus, decompressive colonoscopy x2 if not improved, surgery to follow Documented By: Samuel Bee (Samuel Bee M.D.)
--- NOTE | 2016-12-16 09:12 | DIAGNOSTIC IMAGING REPORT ---
PA CHEST RADIOGRAPH AND UPRIGHT AND SUPINE AP RADIOGRAPHS OF THE ABDOMEN CLINICAL HISTORY: Assess volvulus COMPARISON STUDY: Chest radiograph July 12, [address] of the abdomen and pelvis December 14, 2016. FINDINGS: There is no pneumothorax or pleural effusion. Bibasilar opacities favor atelectasis. There may be a trace left pleural effusion. There is no evidence of pulmonary edema. Calcified right lung nodule is noted. There is no free air. Marked colonic distention has increased since prior exam. Colonic loops measure up to 12 cm in caliber. There has been interval development of small bowel dilatation since exam of December 14, 2016. There is a paucity of rectal gas. There is no radiographic evidence of pneumatosis or portal venous gas. IMPRESSION: Increase in marked colonic gaseous distention and interval development of small bowel dilatation since CT of December 14, 2016. The findings are consistent with a persistent distal colonic obstruction and favor a sigmoid volvulus. Discussed with Dr. Bee at time of dictation. Electronically signed by: Kentrell Rivera M.D. 12/16/2016 9:10 AM Dictated Date/Time: 12/16/2016 8:57 AM
[2016-12-16] MEDS: POTASSIUM CHLR 10 MEQ / WTR 10 MEQ in PREMIXED WATER 100 ML IV SCH ×4 (09:25→13:55)
[2016-12-16] MEDS: CARBIDOPA/LEVODOPA 25/100MG TAB PO SCH ×3 (09:25→20:39)
[2016-12-16] MEDS ORDERED: MINERAL OIL 30 ML UDC ONE (09:34)
--- NOTE | 2016-12-16 09:45 | Gastroenterology Progress Note ---
Progress Note Date of Service: Dec 16, 2016 Subjective Pt evaluation today including: conversation w/ patient, physical exam The patient presented about 36 hours ago with colonic distention and underwent a decompression with Dr. Jensen on Sunday. Initially the patient felt better but he's noted overnight that he's had worsening abdominal distention and unable to pass any gas. Abdominal x-ray from this morning seems to show marked dilation of the colon to 12 cm. Review of Systems Constitutional: + problem reported, No fever, No sweats Cardiac: No chest pain, No palpitations Medications Current Inpatient Medications Medications (Trade) Dose Ordered Sig/[place]ster Route Start Time Stop Time Status Last Admin Dose Admin Ioversol (Optiray 320) 125 ml UD PRN IV 12/14/16 11:45 12/18/16 11:44 Carbidopa/Levodopa (Sinemet 25/ 100MG Tab) 1 tab TID PO 12/14/16 21:00 01/13/17 20:59 12/16/16 09:25 1 TAB Lorazepam (Ativan Inj) 0.5 mg Q4H PRN IV 12/14/16 16:00 01/13/17 15:59 Lorazepam (Ativan Inj) 1 mg Q4H PRN IV 12/14/16 16:00 01/13/17 15:59 Promethazine HCl 12.5 mg/Sodium Chloride 50.5 ml @ 204 mls/hr Q6H PRN IV 12/14/16 16:00 01/13/17 15:59 Morphine Sulfate (MoRPHine SULFATE INJ) 2 mg Q4H PRN IV 12/14/16 16:00 12/28/16 15:59 12/14/16 19:24 2 MG Morphine Sulfate (MoRPHine SULFATE INJ) 4 mg Q4H PRN IV 12/14/16 16:00 12/28/16 15:59 Ondansetron HCl (Zofran Inj) 4 mg Q6H PRN IV 12/14/16 16:00 01/13/17 15:59 12/15/16 05:47 4 MG Ranitidine HCl 50 mg/Dextrose 102 ml @ 200 mls/hr Q8H IV 12/14/16 18:00 01/13/17 17:59 12/16/16 02:29 200 MLS/HR Lorazepam 1 mg/ Syringe 1 ml @ 1 mls/min Q4H PRN IV 12/14/16 17:30 01/13/17 17:29 Lorazepam 0.5 mg/ Syringe 1 ml @ 1 mls/min Q4H PRN IV 12/14/16 17:30 01/13/17 17:29 Insulin Aspart (novoLOG ASPART) SLIDING SCALE PARAMETER Q6 SC 12/15/16 06:00 01/14/17 05:59 Ciprofloxacin/ Dextrose 400 mg/ Prmx 200 ml @ 100 mls/hr Q12H IV 12/15/16 16:00 12/25/16 20:59 12/16/16 03:48 100 MLS/HR Metronidazole 500 mg/Prmx 100 ml @ 100 mls/hr Q8H IV 12/15/16 18:00 12/25/16 17:59 12/16/16 02:29 100 MLS/HR Potassium Chloride/Sodium Chloride 1,000 ml @ 100 mls/hr Q10H IV 12/15/16 18:00 01/14/17 17:59 12/16/16 03:48 100 MLS/HR Potassium Chloride 10 meq/ Prmx 100 ml @ 100 mls/hr Q1H IV 12/16/16 08:30 12/16/16 12:29 12/16/16 09:25 100 MLS/HR Objective Vital Signs Date Time Temp Pulse Resp B/P (MAP) Pulse Ox O2 Delivery O2 Flow Rate FiO2 12/16/16 09:39 Room Air 12/16/16 07:26 37.0 62 16 158/69 (98) 92 Room Air 12/15/16 23:20 Room Air 12/15/16 22:55 36.8 74 16 145/78 (100) 96 Room Air 12/15/16 19:00 36.8 65 16 150/73 (98) 95 Nasal Cannula 2.0 12/15/16 17:55 36.9 74 16 154/70 (98) 95 2.0 12/15/16 16:55 36.5 75 16 148/74 (98) 94 Nasal Cannula 2.0 12/15/16 16:25 36.5 84 18 148/77 (100) 94 Nasal Cannula 2.0 12/15/16 15:55 36.5 82 18 143/77 (99) 96 Nasal Cannula 2.0 12/15/16 15:20 96 Nasal Cannula 2.0 12/15/16 15:15 80 20 165/84 (111) 96 Nasal Cannula 3 12/15/16 15:00 81 20 166/80 (108) 96 Nasal Cannula 3 12/15/16 14:50 82 20 168/82 (110) 95 Nasal Cannula 3 12/15/16 14:40 80 20 156/81 (106) 96 Nasal Cannula 3 12/15/16 12:24 37.1 84 20 159/93 (115) 94 Nasal Cannula 3 12/15/16 11:58 37.4 81 16 163/81 95 Nasal Cannula 2.0 Physical Exam General Appearance: + mild distress Eyes: PERRL Neck: no JVD Respiratory/Chest: lungs clear Cardiovascular: no murmur Abdomen: + pertinent finding (diffuse distention of the abdomen with tympany and mild tenderness) Neurologic/Psych: oriented x 3 Skin: no jaundice Patient with a history of sigmoid volvulus with what appears to be recurrence. Given the dilation of the colon we can proceed with a repeat colonic decompression with placement of a rectal tube this time. Given the nature of his symptoms and recurrence requested general surgery to determine if he is a surgical candidate for sigmoid colectomy at this hospital. If not I would suggest that the patient be transferred to a referral center for further evaluation and treatment. Plan Colonic decompression with rectal tube placement Please discuss case with general surgery to determine if patient should stay at this hospital or be referred to a tertiary center Nothing by mouth Laboratory Results Last 24 Hours Test 12/15/16 11:49 12/15/16 16:59 12/15/16 21:03 12/15/16 23:32 Bedside Glucose 138 mg/dl 135 mg/dl 94 mg/dl 97 mg/dl Test 12/16/16 05:40 12/16/16 07:14 Bedside Glucose 111 mg/dl Sodium Level 139 mmol/L Potassium Level 3.1 mmol/L Chloride Level 105 mmol/L Carbon Dioxide Level 28 mmol/L Anion Gap 6.0 mmol/L Blood Urea Nitrogen 12 mg/dl Creatinine 0.95 mg/dl Est Creatinine Clear Calc Drug Dose 83.0 ml/min Estimated GFR () 90.4 Estimated GFR (Non- 78.0 BUN/Creatinine Ratio 12.9 Random Glucose 109 mg/dl Lactic Acid Level 1.1 mmol/L Calcium Level 7.9 mg/dl Magnesium Level 2.1 mg/dl
[2016-12-16] MEDS ORDERED: FENTANYL CITRATE INJ 50 MCG/1 ML 2 ML VIAL IV PRN (10:00)
[2016-12-16] MEDS ORDERED: EpHEDrine SULFATE INJ 50 MG/ML AMP IV PRN (10:00)
[2016-12-16] MEDS ORDERED: ONDANSETRON INJ 2 MG/ML 2 ML VIAL IV PRN (10:00)
[2016-12-16] MEDS ORDERED: ATROPINE SULFATE 0.1 MG/ML 5ML SYR IV PRN (10:00)
--- NOTE | 2016-12-16 10:36 | GI REPORT ---
Procedure Date: 12/16/2016 9:58 AM Procedure: Colonoscopy Indications: Epigastric abdominal pain, Abnormal abdominal x-ray of the GI tract, For therapy of volvulus Medicines: Monitored Anesthesia Care Complications: No immediate complications. Estimated blood loss: Minimal. Estimated Blood Loss: Estimated blood loss was minimal. Procedure: Pre-Anesthesia Assessment: - Prior to the procedure, a History and Physical was performed, and patient medications, allergies and sensitivities were reviewed. The patient's tolerance of previous anesthesia was reviewed. - The risks and benefits of the procedure and the sedation options and risks were discussed with the patient. All questions were answered and informed consent was obtained. - Patient identification and proposed procedure were verified prior to the procedure by the physician, the nurse and the machine tool electrician. The procedure was verified in the procedure room. - Pre-procedure physical examination revealed no contraindications to sedation. - ASA Grade Assessment: III - A patient with severe systemic disease. - After reviewing the risks and benefits, the patient was deemed in satisfactory condition to undergo the procedure. - The anesthesia plan was to use general anesthesia. - Immediately prior to administration of medications, the patient was re-assessed for adequacy to receive sedatives. - The heart rate, respiratory rate, oxygen saturations, blood pressure, adequacy of pulmonary ventilation, and response to care were monitored throughout the procedure. - The heart rate, respiratory rate, oxygen saturations, blood pressure, adequacy of pulmonary ventilation, and response to care were monitored throughout the procedure. - The physical status of the patient was re-assessed after the procedure. After I obtained informed consent, the scope was passed under direct vision. Throughout the procedure, the patient's blood pressure, pulse, and oxygen saturations were monitored continuously. The scope was introduced through the anus and advanced to the ileocolonic anastomosis. The colonoscopy was performed without difficulty. The patient tolerated the procedure well. The quality of the bowel preparation was fair. Findings: The perianal and digital rectal examinations were normal. Pertinent negatives include normal sphincter tone. The lumen of the colon (entire examined portion) was moderately dilated. Decompression of the volvulus was attempted, and partial decompression was achieved. Following the maneuver, a tube was placed to maintain the decompression. Estimated blood loss: none. Impression: - Dilated in the entire examined colon. - No specimens collected. Recommendation: - [facility]. - Perform a flat plate abdominal x-ray today. - NPO. - Surgical referral for sigmoid colectomy - Flush rectal tube every 4 hours with 100 ml of Colyte solution. Scott Ayala D.O. Scott Ayala, 12/16/2016 10:36:47 AM This report has been signed electronically. Note Initiated On: 12/16/2016 9:58 AM I attest to the content of the Intraoperative Record and orders documented therein, exceptions below
--- NOTE | 2016-12-16 10:39 | [facility] Post Operative Brief Note ---
Immediate Operative Summary Operative Date Dec 16, 2016. Pre-Operative Diagnosis Sigmoid Volvulus Post-Operative Diagnosis Sigmoid Volvulus Procedure(s) Performed Colonic Decompression with rectal tube insertion Surgeon Dr. Ayala Rn Hemo Dialysis Surgeon(s) none Estimated Blood Loss 0 Findings dilated colon rectal tube placed Specimens Any specimens obtained by endo staff Drains REctal tube placed Anesthesia MAC Complication(s) None Disposition Recovery Room / PACU
[2016-12-16] MEDS ORDERED: PROPOFOL IV EMULSION 10 MG/ML 20 ML VIAL IV ONE (10:41)
--- NOTE | 2016-12-16 11:06 | Anesthesiology Progress Note ---
Anesthesia Post Op Note Date & Time Dec 16, 2016 at 11:06 Vital Signs Pain Intensity: 0 Vital Signs Past 12 Hours Date Time Temp Pulse Resp B/P (MAP) Pulse Ox O2 Delivery O2 Flow Rate FiO2 12/16/16 10:50 61 16 140/68 99 Nasal Cannula 3 12/16/16 10:42 37.2 60 14 135/69 99 Nasal Cannula 3 12/16/16 09:39 Room Air 12/16/16 07:26 37.0 62 16 158/69 (98) 92 Room Air 12/15/16 23:20 Room Air Notes Mental Status: alert / awake / arousable, participated in evaluation Pt Amnestic to Procedure: Yes Nausea / Vomiting: adequately controlled Pain: adequately controlled Airway Patency, RR, SpO2: stable & adequate BP & HR: stable & adequate Hydration State: stable & adequate Anesthetic Complications: no major complications apparent
--- NOTE | 2016-12-16 11:08 | DIAGNOSTIC IMAGING REPORT ---
KUB CLINICAL HISTORY: Rectal tube placed. COMPARISON STUDY: Abdominal series December 16, 2016 at 8:39 AM. FINDINGS: Note is made of interval placement of a rectal tube. The tube tip is within the left upper quadrant, likely within the splenic flexure of the colon. Colonic distention shown on prior exam has resolved. Mild small bowel dilatation has improved. IMPRESSION: Interval resolution of colonic distention and improvement in small bowel dilatation following placement of a rectal tube. Tube tip within the splenic flexure of the colon. Electronically signed by: Kentrell Rivera M.D. 12/16/2016 11:07 AM Dictated Date/Time: 12/16/2016 11:05 AM
[2016-12-16 11:27] VITALS: BP 165/74; PULSE 68; TEMP 37.2; O2SAT 94
--- NOTE | 2016-12-16 12:09 | Progress Note ---
Progress Note Date of Service Dec 16, 2016. Progress Note Urgent colonic decompression performed today--this is the second one of the patients admission. I did place a rectal tube which should hopefully help. Given the persistent nature of his problem I wonder if he should have a sigmoid colectomy as definitive management of the sigmoid volvulus. Recommendations KUB in am Golyte 100 ml every 4 hours via rectal tube avoid narcotics and Benzos re-engauge with surgery
[2016-12-16] MEDS: LAVAGE SOLUTION 4000ML PR SCH ×4 (12:39→23:35)
[2016-12-16 15:31] VITALS: BP 160/69; PULSE 56; TEMP 37; O2SAT 92
--- NOTE | 2016-12-16 15:35 | Surgery Progress Note ---
Surgery Progress Note Date of Service Dec 16, 2016. Subjective No nausea, No vomiting Pain-free at present. He underwent a colonoscopy for decompression again today. Postprocedure KUB showed decompression of the colon. The rectal tube was left in place. The tip was near the splenic flexure. Objective Vital Signs: Date Time Temp Pulse Resp B/P (MAP) Pulse Ox O2 Delivery O2 Flow Rate FiO2 12/16/16 11:27 37.2 68 16 165/74 (104) 94 Nasal Cannula 2.0 12/16/16 11:05 37 60 16 138/73 98 Nasal Cannula 3 12/16/16 10:50 61 16 140/68 99 Nasal Cannula 3 12/16/16 10:42 37.2 60 14 135/69 99 Nasal Cannula 3 12/16/16 09:39 Room Air 12/16/16 07:26 37.0 62 16 158/69 (98) 92 Room Air 12/15/16 23:20 Room Air 12/15/16 22:55 36.8 74 16 145/78 (100) 96 Room Air 12/15/16 19:00 36.8 65 16 150/73 (98) 95 Nasal Cannula 2.0 12/15/16 17:55 36.9 74 16 154/70 (98) 95 2.0 12/15/16 16:55 36.5 75 16 148/74 (98) 94 Nasal Cannula 2.0 12/15/16 16:25 36.5 84 18 148/77 (100) 94 Nasal Cannula 2.0 12/15/16 15:55 36.5 82 18 143/77 (99) 96 Nasal Cannula 2.0 Abdomen: non tender, soft, + distended (mild) Laboratory Results: Results Past 24 Hours Test 12/15/16 16:59 12/15/16 21:03 12/15/16 23:32 12/16/16 05:40 Range/Units Bedside Glucose 135 94 97 111 70-99 mg/dl Test 12/16/16 07:14 12/16/16 12:20 Range/Units Sodium Level 139 136-145 mmol/L Potassium Level 3.1 3.5-5.1 mmol/L Chloride Level 105 98-107 mmol/L Carbon Dioxide Level 28 21-32 mmol/L Anion Gap 6.0 3-11 mmol/L Blood Urea Nitrogen 12 7-18 mg/dl Creatinine 0.95 0.60-1.40 mg/dl Est Creatinine Clear Calc Drug Dose 83.0 ml/min Estimated GFR () 90.4 Estimated GFR (Non- 78.0 BUN/Creatinine Ratio 12.9 10-20 Random Glucose 109 70-99 mg/dl Lactic Acid Level 1.1 0.4-2.0 mmol/L Calcium Level 7.9 8.5-10.1 mg/dl Magnesium Level 2.1 1.8-2.4 mg/dl Bedside Glucose 101 70-99 mg/dl Microbiology Results 12/16/16 C.difficile Toxin B Gene (PCR) - Final, Complete No C. difficile toxin B gene detected Assessment & Plan Sigmoid volvulus Now decompressed. I agree with the Colyte in attempt to prep the bowel as much as possible. There was no need for immediate surgical intervention. If the bowel can be prepped it would make it more likely that a primary anastomosis would be able to be performed and would be successful. We'll continue to follow with you.
[2016-12-16 22:52] VITALS: BP 177/81; PULSE 62; TEMP 36.9; O2SAT 93
[2016-12-16] MEDS: LORAZEPAM INJ 1 MG in SYRINGE 0.5 ML IV PRN (23:42)
[2016-12-17] VITALS (8 sets, daily range): BP systolic 159–177; BP diastolic 70–81; PULSE 55–68; TEMP 37.1–37.2; O2SAT 92–96
[2016-12-17] MEDS: METRONIDAZOLE / NSS 500 MG in PREMIXED NSS 100 ML IV SCH ×3 (02:30→18:08)
[2016-12-17] MEDS: RANITIDINE IV 50 MG in DEXTROSE 5% 100ML 100 ML IV SCH ×3 (02:31→18:08)
[2016-12-17] MEDS: CIPROFLOXACIN / D5W 400 MG in PREMIXED IN D5W 200 ML IV SCH ×2 (03:34→15:58)
[2016-12-17] MEDS: LAVAGE SOLUTION 4000ML PR SCH ×5 (03:35→20:57)
[2016-12-17] MEDS: INSULIN ASPART 100 UNITS/ML 3 ML PEN SC SCH ×3 (05:53→18:00)
[2016-12-17 06:20] LABS: HEMATOCRIT 40.5 % (42-52); MEAN CORPUSCULAR HEMOGLOBIN 29.9 pg (25-34); MEAN CORPUSCULAR HGB CONC 31.9 g/dl (32-36); PLATELET COUNT 206 K/uL (130-400); RED BLOOD COUNT 4.31 M/uL (4.7-6.1); WHITE BLOOD COUNT 8.28 K/uL (4.8-10.8)
[2016-12-17 06:49] LABS: CALCIUM 7.9 mg/dl (8.5-10.1); POTASSIUM 3.3 mmol/L (3.5-5.1)
[2016-12-17] MEDS ORDERED: ALBUT/IPRATROP 3MG/0.5MG NEB 3 ML VIAL INH PRN (08:15)
[2016-12-17] MEDS ORDERED: FUROSEMIDE INJ 20 MG in SYRINGE 0 ML IV ONE (08:30)
[2016-12-17] MEDS: POTASSIUM CHLR 10 MEQ / WTR 10 MEQ in PREMIXED WATER 100 ML IV SCH ×3 (08:33→11:15)
[2016-12-17] MEDS: CARBIDOPA/LEVODOPA 25/100MG TAB PO SCH ×3 (08:42→20:58)
--- NOTE | 2016-12-17 09:37 | Gastroenterology Progress Note ---
Progress Note Date of Service: Dec 17, 2016 Subjective Pt evaluation today including: conversation w/ patient, physical exam The patient notes that his abdomen feels less tender than prior days however he still feels distended and is a little bit labored with his breathing this morning. He does note having some water passed from his rectal area and is unsure if he is passing any gas Review of Systems Constitutional: No fever, No sweats Respiratory: + see HPI, No cough, No wheezing Cardiac: + problem reported, No chest pain, No PND, No palpitations Medications Current Inpatient Medications Medications (Trade) Dose Ordered Sig/Chester Route Start Time Stop Time Status Last Admin Dose Admin Ioversol (Optiray 320) 125 ml UD PRN IV 12/14/16 11:45 12/18/16 11:44 Carbidopa/Levodopa (Sinemet 25/ 100MG Tab) 1 tab TID PO 12/14/16 21:00 01/13/17 20:59 12/17/16 08:42 1 TAB Lorazepam (Ativan Inj) 0.5 mg Q4H PRN IV 12/14/16 16:00 01/13/17 15:59 Lorazepam (Ativan Inj) 1 mg Q4H PRN IV 12/14/16 16:00 01/13/17 15:59 Promethazine HCl 12.5 mg/Sodium Chloride 50.5 ml @ 204 mls/hr Q6H PRN IV 12/14/16 16:00 01/13/17 15:59 Morphine Sulfate (MoRPHine SULFATE INJ) 2 mg Q4H PRN IV 12/14/16 16:00 12/28/16 15:59 12/14/16 19:24 2 MG Morphine Sulfate (MoRPHine SULFATE INJ) 4 mg Q4H PRN IV 12/14/16 16:00 12/28/16 15:59 Ondansetron HCl (Zofran Inj) 4 mg Q6H PRN IV 12/14/16 16:00 01/13/17 15:59 12/15/16 05:47 4 MG Ranitidine HCl 50 mg/Dextrose 102 ml @ 200 mls/hr Q8H IV 12/14/16 18:00 01/13/17 17:59 12/17/16 02:31 200 MLS/HR Insulin Aspart (novoLOG ASPART) SLIDING SCALE PARAMETER Q6 SC 12/15/16 06:00 8/27/17 05:59 Ciprofloxacin/ Dextrose 400 mg/ Prmx 200 ml @ 100 mls/hr Q12H IV 12/15/16 16:00 12/25/16 20:59 12/17/16 03:34 100 MLS/HR Metronidazole 500 mg/Prmx 100 ml @ 100 mls/hr Q8H IV 12/15/16 18:00 12/25/16 17:59 12/17/16 08:44 100 MLS/HR Polyethylene Glycol/ Electrolytes (Golytely Soln) 0.4 dose Q4H IL 12/16/16 12:00 01/15/17 11:59 12/17/16 07:31 0.4 DOSE Lorazepam 0.5 mg/ Syringe 1 ml @ 1 mls/min Q4H PRN IV 12/16/16 21:30 01/15/17 21:29 Lorazepam 1 mg/ Syringe 1 ml @ 1 mls/min Q4H PRN IV 12/16/16 21:30 01/15/17 21:29 12/16/16 23:42 1 MLS/MIN Potassium Chloride 10 meq/ Prmx 100 ml @ 100 mls/hr Q1H IV 12/17/16 08:00 12/17/16 10:59 12/17/16 08:33 100 MLS/HR Albuterol/ Ipratropium (Duoneb) 3 ml QIDR INH 12/17/16 12:00 01/16/17 11:59 Albuterol/ Ipratropium (Duoneb) 3 ml Q2R PRN INH 12/17/16 08:15 01/16/17 08:14 Objective Vital Signs Date Time Temp Pulse Resp B/P (MAP) Pulse Ox O2 Delivery O2 Flow Rate FiO2 12/17/16 07:06 37.1 55 19 168/74 (105) 94 Room Air 12/17/16 03:04 175/81 (112) 12/16/16 23:40 CPAP 12/16/16 22:52 36.9 62 24 177/81 (113) 93 Room Air 12/16/16 15:31 37.0 56 18 160/69 (99) 92 Room Air 12/16/16 15:15 Room Air 12/16/16 11:27 37.2 68 16 165/74 (104) 94 Nasal Cannula 2.0 12/16/16 11:05 37 60 16 138/73 98 Nasal Cannula 3 12/16/16 10:50 61 16 140/68 99 Nasal Cannula 3 12/16/16 10:42 37.2 60 14 135/69 99 Nasal Cannula 3 12/16/16 09:39 Room Air Physical Exam General Appearance: + mild distress Eyes: PERRL Neck: no JVD Respiratory/Chest: lungs clear Cardiovascular: no JVD Abdomen: + distended, + pertinent finding (hypoactive bowel sounds) Extremities: no pedal edema Neurologic/Psych: oriented x 3 Skin: no jaundice Laboratory Results Last 24 Hours Test 12/16/16 12:20 12/16/16 16:56 12/16/16 23:32 12/17/16 05:38 Bedside Glucose 101 mg/dl 99 mg/dl 101 mg/dl 109 mg/dl Test 12/17/16 05:57 White Blood Count 8.28 K/uL Red Blood Count 4.31 M/uL Hemoglobin 12.9 g/dL Hematocrit 40.5 % Mean Corpuscular Volume 94.0 fL Mean Corpuscular Hemoglobin 29.9 pg Mean Corpuscular Hemoglobin Concent 31.9 g/dl RDW Standard Deviation 46.0 fL RDW Coefficient of Variation 13.3 % Platelet Count 206 K/uL Mean Platelet Volume 10.0 fL Sodium Level 140 mmol/L Potassium Level 3.3 mmol/L Chloride Level 105 mmol/L Carbon Dioxide Level 28 mmol/L Anion Gap 7.0 mmol/L Blood Urea Nitrogen 8 mg/dl Creatinine 1.00 mg/dl Est Creatinine Clear Calc Drug Dose 78.8 ml/min Estimated GFR () 85.0 Estimated GFR (Non- 73.3 BUN/Creatinine Ratio 8.0 Random Glucose 108 mg/dl Calcium Level 7.9 mg/dl Assessment and Plan Patient presented several days ago with sigmoid volvulus under going two colonic decompressions in the last 48 hours. We reviewed this mornings films with Radiology who feels that todays film is stable/maybe improved. I wonder if he should undergo surgical therapy for his presumed sigmoid volvulus with his regular surgeon early next week. Recommendations Continue with nothing by mouth Avoid use of narcotics and benzodiazepines Daily KUB Continue with Golyte 100 ml via rectal tube every 4 hours If abdominal film worsening patient may need urgent surgical intervention
--- NOTE | 2016-12-17 09:57 | DIAGNOSTIC IMAGING REPORT ---
KUB CLINICAL HISTORY: s/p rectal tube placement, eval for colonic distension COMPARISON STUDY: 12/16/2016 FINDINGS: Rectal tube remains with the tip in the splenic flexure of the colon. No significant colonic distention. Mild small bowel distention unchanged. Air-filled stomach. IMPRESSION: 1.. No significant colonic distention. 2. Moderate stable small bowel distention. 3. Rectal tube remains with tip in the splenic flexure of the colon. The above report was generated using voice recognition software. It may contain grammatical, syntax or spelling errors. Electronically signed by: Tom Auguste M.D. 12/17/2016 9:55 AM Dictated Date/Time: 12/17/2016 9:54 AM
[2016-12-17] MEDS: ALBUT/IPRATROP 3MG/0.5MG NEB 3 ML VIAL INH SCH ×3 (11:30→19:18)
--- NOTE | 2016-12-17 13:06 | Surgery Progress Note ---
Surgery Progress Note Date of Service Dec 17, 2016. Subjective + bowel movement (via rectal tube), No nausea, No vomiting Denies pain Objective Vital Signs: Date Time Temp Pulse Resp B/P (MAP) Pulse Ox O2 Delivery O2 Flow Rate FiO2 12/17/16 11:20 60 16 96 Room Air 12/17/16 11:00 37.2 61 20 159/70 (99) 92 Room Air 12/17/16 07:20 Nasal Cannula 12/17/16 07:06 37.1 55 19 168/74 (105) 94 Room Air 12/17/16 03:04 175/81 (112) 12/16/16 23:40 CPAP 12/16/16 22:52 36.9 62 24 177/81 (113) 93 Room Air 12/16/16 15:31 37.0 56 18 160/69 (99) 92 Room Air 12/16/16 15:15 Room Air Abdomen: normal bowel sounds, non tender, + distended (slightly more today) Laboratory Results: Results Past 24 Hours Test 12/16/16 16:56 12/16/16 23:32 12/17/16 05:38 12/17/16 05:57 Range/Units Bedside Glucose 99 101 109 70-99 mg/dl White Blood Count 8.28 4.8-10.8 K/uL Red Blood Count 4.31 4.7-6.1 M/uL Hemoglobin 12.9 14.0-18.0 g/dL Hematocrit 40.5 42-52 % Mean Corpuscular Volume 94.0 80-100 fL Mean Corpuscular Hemoglobin 29.9 25-34 pg Mean Corpuscular Hemoglobin Concent 31.9 32-36 g/dl RDW Standard Deviation 46.0 36.4-46.3 fL RDW Coefficient of Variation 13.3 11.5-14.5 % Platelet Count 206 130-400 K/uL Mean Platelet Volume 10.0 7.4-10.4 fL Sodium Level 140 136-145 mmol/L Potassium Level 3.3 3.5-5.1 mmol/L Chloride Level 105 98-107 mmol/L Carbon Dioxide Level 28 21-32 mmol/L Anion Gap 7.0 3-11 mmol/L Blood Urea Nitrogen 8 7-18 mg/dl Creatinine 1.00 0.60-1.40 mg/dl Est Creatinine Clear Calc Drug Dose 78.8 ml/min Estimated GFR () 85.0 Estimated GFR (Non- 73.3 BUN/Creatinine Ratio 8.0 10-20 Random Glucose 108 70-99 mg/dl Calcium Level 7.9 8.5-10.1 mg/dl Test 12/17/16 11:50 Range/Units Bedside Glucose 96 70-99 mg/dl Diagnostic Interpretation: [~ rep ct add3]] KUB CLINICAL HISTORY: s/p rectal tube placement, eval for colonic distension COMPARISON STUDY: 12/16/2016 FINDINGS: Rectal tube remains with the tip in the splenic flexure of the colon. No significant colonic distention. Mild small bowel distention unchanged. Air-filled stomach. IMPRESSION: 1.. No significant colonic distention. 2. Moderate stable small bowel distention. 3. Rectal tube remains with tip in the splenic flexure of the colon. Assessment & Plan Sigmoid volvulus Now decompressed. Xray today unchanged I agree with continuing the Colyte in attempt to prep the bowel as much as possible. There was no need for immediate surgical intervention. WBC normal If the bowel can be prepped it would make it more likely that a primary anastomosis would be able to be performed and would be successful. Continue NPO
--- NOTE | 2016-12-17 13:21 | Progress Note ---
Subjective Date of Service: Dec 17, 2016. Subjective pt has persistent clinical abdominal distension and tympany with hyperactive bowel sounds, is comfortable with little pain KUB 12/17 not worsened PT is slightly tachypneic at baseline today with prolonged expiration and tobacco history Problem List Medical Problems: (1) Rhabdomyolysis Status: Acute (2) Sigmoid volvulus Status: Acute (3) Weakness Status: Acute Review of Systems Constitutional: No fever, No chills Respiratory: + shortness of breath, + dyspnea at rest, No cough Cardiac: No chest pain, No orthopnea, No PND Abdomen: No pain, No nausea Male : No dysuria, No urinary frequency Psychiatric: No depression symptoms, No anhedonism Objective Vital Signs Date Time Temp Pulse Resp B/P (MAP) Pulse Ox O2 Delivery O2 Flow Rate FiO2 12/17/16 11:20 60 16 96 Room Air 12/17/16 11:00 37.2 61 20 159/70 (99) 92 Room Air 12/17/16 07:20 Nasal Cannula 12/17/16 07:06 37.1 55 19 168/74 (105) 94 Room Air 12/17/16 03:04 175/81 (112) 12/16/16 23:40 CPAP 12/16/16 22:52 36.9 62 24 177/81 (113) 93 Room Air 12/16/16 15:31 37.0 56 18 160/69 (99) 92 Room Air 12/16/16 15:15 Room Air Physical Exam General Appearance: WD/WN, + mild distress Neck: supple, no JVD Respiratory/Chest: chest non-tender, lungs clear, + respiratory distress, + decreased breath sounds Cardiovascular: regular rate, rhythm, no murmur Abdomen: + abnormal bowel sounds, + distended, + tenderness Extremities: no pedal edema, no calf tenderness Neurologic/Psychiatric: alert, oriented x 3 Laboratory Results Last 24 Hours Test 12/16/16 16:56 12/16/16 23:32 12/17/16 05:38 12/17/16 05:57 Bedside Glucose 99 mg/dl 101 mg/dl 109 mg/dl White Blood Count 8.28 K/uL Red Blood Count 4.31 M/uL Hemoglobin 12.9 g/dL Hematocrit 40.5 % Mean Corpuscular Volume 94.0 fL Mean Corpuscular Hemoglobin 29.9 pg Mean Corpuscular Hemoglobin Concent 31.9 g/dl RDW Standard Deviation 46.0 fL RDW Coefficient of Variation 13.3 % Platelet Count 206 K/uL Mean Platelet Volume 10.0 fL Sodium Level 140 mmol/L Potassium Level 3.3 mmol/L Chloride Level 105 mmol/L Carbon Dioxide Level 28 mmol/L Anion Gap 7.0 mmol/L Blood Urea Nitrogen 8 mg/dl Creatinine 1.00 mg/dl Est Creatinine Clear Calc Drug Dose 78.8 ml/min Estimated GFR () 85.0 Estimated GFR (Non- 73.3 BUN/Creatinine Ratio 8.0 Random Glucose 108 mg/dl Calcium Level 7.9 mg/dl Test 12/17/16 11:50 Bedside Glucose 96 mg/dl Assessment and Plan 75 yo M with stubborn sigmoid volvulus, endoscopic decompression x2, as per DR Gill will likely need definitive general surgical procedure if not clearing by early this week. PMHx of T2DM with Diabetic Neuropathy, HTN, Gout, LEN on CPAP, H/o DVT with PE ( 2013) off anticoagulation, diabetic gastroparesis, anxiety disorder Sigmoid Volvulus General Surgery including Brandon and Dr. Gill CT 12/14 reviewed showing sigmoid volvulus and appears to be 8 cm at the largest point. colonoscopic decompression 12/15,, KUB 12/17 shows no worseing but persistent small and large bowel dilation Mild respiratory distress 12/17, perhaps some fluid overload, given iv last and stopped ivf, added nebulized medication also T2DM with Diabetic Neuropathy: A1c 5.9 (07/12/16), Last Hgb A1C was 5.9 in Jun 2016 -SSI with Accu-Cheks ACHS Hypokalemia follow daily and replete as needed Restless leg syndrome- Continue Carbidopa levodopa 25-100 mg TID Gout:- Allopurinol 300 mg daily once PO intake allowed LEN: CPAP clonazepam held, sertraline 25 mg daily when able to take PO DVT Prophylaxis: Heparin subcutaneous, teds, scds Code Status: FULL RESUSCITATION
[2016-12-18] VITALS (11 sets, daily range): BP systolic 139–170; BP diastolic 72–85; PULSE 57–106; TEMP 36.7–37.6; O2SAT 91–95
[2016-12-18] MEDS: LAVAGE SOLUTION 4000ML PR SCH ×5 (00:47→12:00)
[2016-12-18] MEDS: LORAZEPAM INJ 0.5 MG in SYRINGE 0.75 ML IV PRN ×2 (00:56→18:34)
[2016-12-18] MEDS: METRONIDAZOLE / NSS 500 MG in PREMIXED NSS 100 ML IV SCH ×3 (01:31→18:36)
[2016-12-18] MEDS: RANITIDINE IV 50 MG in DEXTROSE 5% 100ML 100 ML IV SCH ×3 (01:31→18:36)
[2016-12-18] MEDS: CIPROFLOXACIN / D5W 400 MG in PREMIXED IN D5W 200 ML IV SCH ×2 (03:39→19:56)
[2016-12-18] MEDS: INSULIN ASPART 100 UNITS/ML 3 ML PEN SC SCH ×4 (06:00→18:00)
[2016-12-18] MEDS: ALBUT/IPRATROP 3MG/0.5MG NEB 3 ML VIAL INH SCH ×4 (06:54→18:15)
[2016-12-18 08:24] LABS: HEMATOCRIT 40.6 % (42-52); MEAN CELL VOLUME 92.3 fL (80-100); MEAN CORPUSCULAR HEMOGLOBIN 31.1 pg (25-34); MEAN CORPUSCULAR HGB CONC 33.7 g/dl (32-36); MEAN PLATELET VOLUME 9.7 fL (7.4-10.4); PLATELET COUNT 196 K/uL (130-400); WHITE BLOOD COUNT 8.43 K/uL (4.8-10.8)
--- NOTE | 2016-12-18 08:28 | Surgery Progress Note ---
Surgery Progress Note Date of Service Dec 18, 2016. Subjective No complaints Objective Vital Signs: Date Time Temp Pulse Resp B/P (MAP) Pulse Ox O2 Delivery O2 Flow Rate FiO2 12/18/16 07:42 72 165/85 (111) 12/18/16 07:21 37.4 71 20 170/73 (105) 93 Room Air 12/18/16 07:12 57 16 94 BiPAP/CPAP 12/18/16 00:30 Room Air CPAP 12/17/16 22:52 37.1 62 16 163/75 (104) 93 Room Air 12/17/16 19:18 68 16 93 Room Air 12/17/16 15:45 59 16 93 Room Air 12/17/16 15:30 Nasal Cannula 1.0 12/17/16 15:06 37.2 64 18 177/76 (109) 95 Room Air 12/17/16 11:20 60 16 96 Room Air 12/17/16 11:00 37.2 61 20 159/70 (99) 92 Room Air Abdomen: soft, + distended, + pertinent finding (rectal tube 175) Laboratory Results: Results Past 24 Hours Test 12/17/16 11:50 12/17/16 18:22 12/18/16 00:42 12/18/16 05:58 Range/Units Bedside Glucose 96 107 96 103 70-99 mg/dl Test 12/18/16 08:12 Range/Units Assessment & Plan sigmoid volvulus partially decompressed after endoscopy x2 and rectal tube placement high likelihood of recurrence once tube is removed will proceed with sigmoid colectomy this afternoon as above. discussed with pt and his daughter. discussed options/risks. discussed high likelihood of recurrence. discussed surgical risks ( bleeding/ infection/dvt/pe/mi/leaks/injury to other organs such as ureter/bladder/small bowel etc...). answered questions. will proceed with open sigmoidectomy this afternoon.
[2016-12-18 08:53] LABS: BUN/CREATININE RATIO 7.9 (10-20); CALCIUM 8.1 mg/dl (8.5-10.1); CREATININE 0.98 mg/dl (0.60-1.40); POTASSIUM 2.8 mmol/L (3.5-5.1)
--- NOTE | 2016-12-18 09:18 | DIAGNOSTIC IMAGING REPORT ---
[facility] CLINICAL HISTORY: Volvulus COMPARISON STUDY: 12/17/2016 FINDINGS: A rectal tube is again visualized. The tip projects to the level the proximal descending colon. There is persistent small bowel dilatation. IMPRESSION: 1. Persistent small bowel dilatation 2. Rectal tube with its tip at the level of the proximal descending colon Electronically signed by: Rony Melgar M.D. 12/18/2016 9:17 AM Dictated Date/Time: 12/18/2016 9:16 AM
[2016-12-18] MEDS: CARBIDOPA/LEVODOPA 25/100MG TAB PO SCH ×3 (09:34→20:55)
[2016-12-18] MEDS ORDERED: POTASSIUM CHLORIDE 10 MEQ TABCR PO STA (10:26)
[2016-12-18] MEDS ORDERED: MAGNESIUM OXIDE 400 MG TAB PO STA (10:26)
[2016-12-18] MEDS ORDERED: POTASSIUM CHLR 10 MEQ / WTR 10 MEQ in PREMIXED WATER 100 ML IV ONE (11:15)
[2016-12-18] MEDS ORDERED: POTASSIUM CHLR 20 MEQ / WTR 20 MEQ in PREMIXED WATER 100 ML IV STA (12:09)
--- NOTE | 2016-12-18 12:13 | Hospitalist Progress Note ---
Hospitalist Progress Note Date of Service Dec 18, 2016. (Cristel Garcia PA-C) Subjective Pt evaluation today including: conversation w/ patient, conversation w/ family , physical exam, chart review, lab review, review of studies, review of inpatient medication list Patient seen and evaluated. Resting comfortably in bed and daughter at bedside. Reports that he is hungry but plans for surgical intervention at 1 PM today. Reporting that his abdomen was softer over the weekend after decompression but started to distend again. Denies having and pain with it at this time. Did have low potassium and will replete. Verbalized no other complaints. Constitutional: No fever, No chills Respiratory: No shortness of breath Cardiovascular: No chest pain Abdomen: No pain, No nausea, No vomiting Musculoskeletal: No swelling, No calf pain Male : No dysuria Skin: No rash (Cristel Garcia PA-C) Medications Current Inpatient Medications Medications (Trade) Dose Ordered Sig/Chester Route Start Time Stop Time Status Last Admin Dose Admin Carbidopa/Levodopa (Sinemet 25/ 100MG Tab) 1 tab TID PO 12/14/16 21:00 01/13/17 20:59 12/18/16 09:34 1 TAB Lorazepam (Ativan Inj) 0.5 mg Q4H PRN IV 12/14/16 16:00 01/13/17 15:59 Lorazepam (Ativan Inj) 1 mg Q4H PRN IV 12/14/16 16:00 01/13/17 15:59 Promethazine HCl 12.5 mg/Sodium Chloride 50.5 ml @ 204 mls/hr Q6H PRN IV 12/14/16 16:00 01/13/17 15:59 Morphine Sulfate (MoRPHine SULFATE INJ) 2 mg Q4H PRN IV 12/14/16 16:00 12/28/16 15:59 12/14/16 19:24 2 MG Morphine Sulfate (MoRPHine SULFATE INJ) 4 mg Q4H PRN IV 12/14/16 16:00 12/28/16 15:59 Ondansetron HCl (Zofran Inj) 4 mg Q6H PRN IV 12/14/16 16:00 01/13/17 15:59 12/15/16 05:47 4 MG Ranitidine HCl 50 mg/Dextrose 102 ml @ 200 mls/hr Q8H IV 12/14/16 18:00 01/13/17 17:59 12/18/16 09:43 200 MLS/HR Insulin Aspart (novoLOG ASPART) SLIDING SCALE PARAMETER Q6 SC 12/15/16 06:00 01/14/17 05:59 Ciprofloxacin/ Dextrose 400 mg/ Prmx 200 ml @ 100 mls/hr Q12H IV 12/15/16 16:00 12/25/16 20:59 12/18/16 03:39 100 MLS/HR Metronidazole 500 mg/Prmx 100 ml @ 100 mls/hr Q8H IV 12/15/16 18:00 12/25/16 17:59 12/18/16 09:33 100 MLS/HR Polyethylene Glycol/ Electrolytes (Golytely Soln) 0.4 dose Q4H OR 12/16/16 12:00 01/15/17 11:59 12/18/16 09:34 0.4 DOSE Lorazepam 0.5 mg/ Syringe 1 ml @ 1 mls/min Q4H PRN IV 12/16/16 21:30 01/15/17 21:29 12/18/16 00:56 1 MLS/MIN Lorazepam 1 mg/ Syringe 1 ml @ 1 mls/min Q4H PRN IV 12/16/16 21:30 01/15/17 21:29 12/16/16 23:42 1 MLS/MIN Albuterol/ Ipratropium (Duoneb) 3 ml QIDR INH 12/17/16 12:00 01/16/17 11:59 12/18/16 11:39 3 ML Albuterol/ Ipratropium (Duoneb) 3 ml Q2R PRN INH 12/17/16 08:15 01/16/17 08:14 Hydralazine HCl (HydrALAZINE INJ) 10 mg Q6H PRN IV. 12/18/16 08:30 01/17/17 08:29 Potassium Chloride 10 meq/ Prmx 100 ml @ 100 mls/hr TODAY@1115 ONCE IV 12/18/16 11:15 12/18/16 12:14 (Cristel Garcia, LILIA) Objective Vital Signs Date Time Temp Pulse Resp B/P (MAP) Pulse Ox O2 Delivery O2 Flow Rate FiO2 12/18/16 07:42 72 165/85 (111) 12/18/16 07:21 37.4 71 20 170/73 (105) 93 Room Air 12/18/16 07:12 57 16 94 BiPAP/CPAP 12/18/16 00:30 Room Air CPAP 12/17/16 22:52 37.1 62 16 163/75 (104) 93 Room Air 12/17/16 19:18 68 16 93 Room Air 12/17/16 15:45 59 16 93 Room Air 12/17/16 15:30 Nasal Cannula 1.0 12/17/16 15:06 37.2 64 18 177/76 (109) 95 Room Air 12/17/16 11:20 60 16 96 Room Air 12/17/16 11:00 37.2 61 20 159/70 (99) 92 Room Air (Cristel Garcia, PA-C) Physical Exam General Appearance: WD/WN, no apparent distress Eyes: sclerae normal ENT: hearing grossly normal Neck: supple, no JVD, trachea midline Respiratory/Chest: lungs clear, normal breath sounds, no respiratory distress, no accessory muscle use Cardiovascular: regular rate, rhythm, no gallop, no murmur Abdomen: non tender, + abnormal bowel sounds (hypoactive), + distended Extremities: no pedal edema, no calf tenderness Neurologic/Psychiatric: alert, oriented x 3 Skin: normal color, warm/dry (Cristel Garcia, PA-C) Laboratory Results Last 24 Hours Test 12/17/16 11:50 12/17/16 18:22 12/18/16 00:42 12/18/16 05:58 Bedside Glucose 96 mg/dl 107 mg/dl 96 mg/dl 103 mg/dl Test 12/18/16 08:05 (Cristel Garcia, PA-C) Assessment and Plan This is a 75 yo M with PMHx of T2DM with Diabetic Neuropathy, HTN, Gout, LEN on CPAP, 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 Sigmoid Volvulus S/P Decompression 12/15 and 12/16: - Has H/O abdominal surgical removal of polyp and H/O gastroparesis - will limit opioids and benzos when possible - Plan for surgical intervention this afternoon - Placed on Cipro 400 mg IV BID and Flagyl 500 mg IV Q8H on 12/15 - concern for gastritis and will continue at this time - Ranitidine 50 mg IV Q8H - GI and General Surgery following - recommendations reviewed and addressed -- Was utilizing Golytely OR Q4H T2DM with Diabetic Neuropathy: A1c 5.9 (07/12/16) - Pt was recently taken off metformin by his PCP - SSI - has not required coverage with limited oral intake Hypokalemia: - Replete orally and intravenously - continue to monitor and replete as necessary Restless Leg Syndrome: STABLE - Gabapentin 300 mg QID and Carbidopa/Levodopa 25/100 mg TID HTN: - On Triamterene/HCT 37.5/25 - 1/2 tablet daily - will hold at this time due to surgical intervention - Hydralazine PRN Gout: - Allopurinol 300 mg daily after advanced diet LEN: - CPAP at night - allow ativan IV prn for claustrophobia with cpap and anxiety - clonazepam and sertraline 25 mg daily when diet advanced DVT Prophylaxis: EUSEBIO/SCDs; withhold chemical prophylaxis for surgical intervention Code Status: FULL RESUSCITATION Disposition: Patient from home - daughter prefers return home with home PT/OT if necessary - PT/OT evaluations after surgical recovery Continued [facility] stay due to: multiple IV medications needed Discharge planning: home with home health (Cristel Garcia, LILIA) Reviewed: Pt Seen/Exam by Me (Carmen Simmons MD) History Physician Glue Cook Supervision Note: I interviewed and examined the patient. Discussed with GUILLAUME Garcia and agree with findings and plan as documented in the note. Any exceptions or clarifications are listed here: Pt just returned from the PACU after sigmoid colectomy. He is drowsy but wakes up for questioning, says he feels fine, no pain. Daughter voices concerns about him having clonazepam available because last time he was in the hospital he didn 't get it and he was climbing out of bed, pulling at his lines and Amaya. Since last admission, he was diagnosed with Parkinson's and started on Sinemet. The dosing is now up to 1.5 tabs tid (I updated the Med Rec from home). This greatly improved his symptoms he was having. Vitals reviewed NAD, lying in bed NGT in place draining bilious fluid RRR no mgr Mild exp wheezes throughout, breathing unlabored Abd hypoactive BS, soft, NT, dressing over midline incision is c/d/i, KENDRICK drain with scant serosang fluid in it Amaya in palce draining clear yellow urine Ext: no edema, no calf tenderness, 2+ DP pulses 75 yo male with a h/o PD, DMII, anxiety, HTN, gout, LEN on CPAP, here with sigmoid volvulus requiring sigmoid colectomy. -post-op care as per Surgery, continue NGT, KENDRICK drain and adv diet as tolerated -continue to hold all po meds (Sinemet, Dyazide, vitamins, Zoloft, clonazepam) and restart when able to -can give IV ativan prn anxiety in place of clonazepam for now Severe hypokalemia secondary to poor po intake--> received 60 meq today and repeat only up to 3.0 this afternoon. Check K+ STAT and will give KCl 20meq IV now, may need more after result comes back -follow post-op CBC, PRP Documented By: Carmen Simmons (Carmen Simmons MD)
[2016-12-18] MEDS ORDERED: LIDOCAINE HCL 2% 2 ML VIAL (20MG/ML) ONE (12:29)
[2016-12-18] MEDS ORDERED: FENTANYL CITRATE INJ 50 MCG/1 ML 2 ML VIAL ONE ×2 (12:29→14:49)
[2016-12-18] MEDS ORDERED: ROCURONIUM BROMIDE 10 MG/ML 5 ML VIAL ONE ×2 (12:29→15:08)
[2016-12-18] MEDS ORDERED: PROPOFOL IV EMULSION 10 MG/ML 20 ML VIAL IV ONE (12:29)
[2016-12-18] MEDS ORDERED: ONDANSETRON INJ 2 MG/ML 2 ML VIAL IV PRN (13:00)
[2016-12-18] MEDS ORDERED: ATROPINE SULFATE 0.1 MG/ML 5ML SYR IV PRN (13:00)
[2016-12-18] MEDS ORDERED: HYDROmorphone INJ 1 MG/ML SYR IV PRN (13:00)
[2016-12-18] MEDS ORDERED: FENTANYL CITRATE INJ 50 MCG/1 ML 2 ML VIAL IV PRN (13:00)
[2016-12-18] MEDS ORDERED: EpHEDrine SULFATE INJ 50 MG/ML AMP IV PRN (13:00)
--- NOTE | 2016-12-18 13:04 | History & Physical Bridge Note ---
H&P Re-Evaluation Bridge Note: I have examined the patient, reviewed the History & Physical and in the interval since the performance of the History & Physical I have noted the following changes of clinical significance: No changes noted
[2016-12-18] MEDS ORDERED: BUPIVACAINE/EPINEPHRINE 0.5% MPF 1:200,000 10 ML VIAL ONE (13:08)
[2016-12-18 13:12] LABS: BUN/CREATININE RATIO 7.6 (10-20); CALCIUM 8.5 mg/dl (8.5-10.1); CREATININE 0.95 mg/dl (0.60-1.40); POTASSIUM 2.9 mmol/L (3.5-5.1)
[2016-12-18 13:19] LABS: MAGNESIUM 1.9 mg/dl (1.8-2.4)
[2016-12-18] MEDS ORDERED: ALBUMIN HUMAN 5% 12.5 GM/250 ML VIAL IV ONE (14:14)
[2016-12-18] MEDS ORDERED: HYDROmorphone INJ 2 MG/ML SYR/VIAL ONE (14:23)
[2016-12-18] MEDS ORDERED: ONDANSETRON INJ 2 MG/ML 2 ML VIAL ONE ×2 (15:08→16:41)
[2016-12-18] MEDS ORDERED: SUCCINYLCHOLINE CHLORIDE 20 MG/ML 10 ML VIAL IV ONE (15:08)
[2016-12-18] MEDS ORDERED: CEFAZOLIN SOD 1 GM VIAL ONE (15:58)
[2016-12-18] MEDS ORDERED: NALOXONE HCL 0.4 MG/1 ML VIAL/CARP IV PRN (16:30)
[2016-12-18] MEDS ORDERED: GLYCOPYRROLATE INJ 0.2 MG/ML VIAL ONE (16:41)
[2016-12-18] MEDS ORDERED: NEOSTIGMINE METHYLSULFATE 5 MG/5 ML SYR ONE (16:41)
--- NOTE | 2016-12-18 16:47 | [facility] Operative Report ---
Operative Report Operative Date Dec 18, 2016. Pre-Operative Diagnosis Sigmoid volvulus Post-Operative Diagnosis Sigmoid volvulus Procedure(s) Performed Sigmoid Colectomy with primary anastomosis;enterolysis Surgeon Operation Research Analyst Surgeon(s) Leland Colon PA-C Estimated Blood Loss 25 mL Findings 1. dilated/"floppy" sigmoid colon 2. abdominal adhesions 3. dilated small bowel. Specimens A: Sigmoid Colon Drains KENDRICK drain into pelvis Anesthesia GET Disposition Recovery Room / PACU Description of Procedure After informed consent was obtained the patient was taken to the operating suite placed in supine position. After successful intubation a Amaya catheter was placed and the abdomen was shaved and sterilely prepped and draped in usual fashion. Prior to draping and prepping we did place the patient in the low lithotomy position in yellowfin stirrups. The entire perineum/rectal area as well as abdomen was prepped with a Betadine solution. We began with a midline incision through his old scar line from above the umbilicus down to the suprapubic area. This carried down through the soft tissue using electrocautery. Anterior fascia was opened using electrocautery and blunt finger penetration was used to enter the abdomen. We extended the incision to both poles using electrocautery. Once in the abdomen we immediately noted diffuse small bowel dilation. We did run the entire small bowel from the ligament of Treitz down to his ileotransverse colon anastomosis. There was no actual bowel obstruction. There were some areas of adhesions that we took down with blunt finger fractionation as well as electrocautery. I presume the small bowel dilation was from the 2 colonoscopies with a valve type effect of the sigmoid colon. We were able to pack this in the upper abdomen. The entire large bowel was dilated as well but was markedly dilated thickened and particularly floppy in the sigmoid colon. We began by mobilizing the white line of cold toldt. We picked a portion of the bowel where it appeared to still have good serosal muscular tone and transected it using a NICOLE purple cartridge linear stapler. We then used the LigaSure device to come down the mesentery towards the pelvis. Again it was markedly dilated thickened and floppy. The mesentery was also elongated and thickened. Once we got down into the pelvis just proximal to the peritoneal reflection we initially attempted to transect it with a NICOLE linear stapler after creating a small window in the mesentery. However whether the bowel was too dilated /thick or whether it was a staple misfire is unclear however it created a small enterotomy in the colon. Immediately suctioned out the succus and closed the defect using 2-0 silk. We then further mobilized the colon and rectum might using a LigaSure to come down on the mesenteric defect. We then created a small window in the mesentery and used a 90 mm TA stapling device to transect the rectosigmoid. We finished off the mesentery with the LigaSure and passed off the specimen. We then thoroughly irrigated the abdomen. We opened the staple line after clamping the bowel of the proximal part of the left colon and put a 2-0 silk pursestring. We used sizers to estimate the size of the EEA to be 31 mm. We placed the anvil from a 31 mm stapler and secured it using the pursestring device. We then used sizers to come in through the rectum and up to the rectum up to the stump. This went without incident and we followed this by putting the handle of the EEA and then deployed the spike. We connected the anvil to the handle secured them together and fired creating a circular anastomosis. Both "donuts" were intact. We did insufflate the anastomosis under water with a rigids proctoscope there was no evidence of any anastomotic leak. We thoroughly irrigated the abdomen a final time. There was adequate hemostasis no other abnormalities were seen. We did place a 10 flat Nelson-Josue drain in the pelvis and brought through a separate stab incision. We then closed the fascia starting at both poles, in the midline with #1 PDS securing them together. Soft tissue was irrigated skin was closed using skin melvin. Silver dressing was applied. The patient was awaken x-rayed and transferred recovery in stable condition I attest to the content of the Intraoperative Record and any orders documented therein. Any exceptions are noted below.
[2016-12-18] MEDS ORDERED: MoRPHine SULFATE 1 MG/ML 50 ML PCA CASS ONE (16:48)
[2016-12-18] MEDS: SODIUM CHLORIDE 0.9% 1000ML 1,000 ML IV SCH (17:00)
--- NOTE | 2016-12-18 17:12 | Anesthesiology Progress Note ---
Anesthesia Post Op Note Date & Time Dec 18, 2016 at 17:11 Vital Signs Pain Intensity: 0 Vital Signs Past 12 Hours Date Time Temp Pulse Resp B/P (MAP) Pulse Ox O2 Delivery O2 Flow Rate FiO2 12/18/16 16:55 85 17 170/88 97 Oxymask 6 12/18/16 16:45 84 19 162/92 95 Oxymask 8 12/18/16 16:35 86 19 172/95 96 Oxymask 10 12/18/16 16:28 37.0 82 16 167/96 95 Oxymask 10 12/18/16 11:39 66 16 91 Room Air 12/18/16 10:06 72 154/72 (99) 12/18/16 09:37 72 155/73 (100) 12/18/16 08:20 Room Air 12/18/16 07:42 72 165/85 (111) 12/18/16 07:21 37.4 71 20 170/73 (105) 93 Room Air 12/18/16 07:12 57 16 94 BiPAP/CPAP Notes Mental Status: alert / awake / arousable, participated in evaluation Pt Amnestic to Procedure: Yes Nausea / Vomiting: adequately controlled Pain: adequately controlled Airway Patency, RR, SpO2: stable & adequate BP & HR: stable & adequate Hydration State: stable & adequate Anesthetic Complications: no major complications apparent
[2016-12-18] MEDS: MoRPHine SULFATE 1 MG/ML 50 ML PCA CASS IV PRN ×2 (17:54→22:49)
[2016-12-18] MEDS ORDERED: CARB25TA12 PO (18:21)
[2016-12-18] MEDS ORDERED: TRIATAB3 PO (18:23)
[2016-12-18] MEDS: NSS + 20MEQ KCL 1000ML 1,000 ML IV SCH (18:37)
[2016-12-18] MEDS: POTASSIUM CHLR 10 MEQ / WTR 10 MEQ in PREMIXED WATER 100 ML IV SCH ×2 (19:54→20:55)
[2016-12-19] VITALS (11 sets, daily range): BP systolic 121–132; BP diastolic 64–75; PULSE 79–96; TEMP 36.8–37.1; O2SAT 92–98
[2016-12-19] MEDS: NSS + 20MEQ KCL 1000ML 1,000 ML IV SCH ×4 (00:07→20:00)
[2016-12-19] MEDS: RANITIDINE IV 50 MG in DEXTROSE 5% 100ML 100 ML IV SCH ×3 (02:15→18:28)
[2016-12-19] MEDS: METRONIDAZOLE / NSS 500 MG in PREMIXED NSS 100 ML IV SCH ×3 (02:49→17:43)
[2016-12-19] MEDS: INSULIN ASPART 100 UNITS/ML 3 ML PEN SC SCH ×5 (06:00→23:53)
[2016-12-19 06:56] LABS: HEMATOCRIT 37.1 % (42-52); MEAN CORPUSCULAR HEMOGLOBIN 31.8 pg (25-34); MEAN CORPUSCULAR HGB CONC 34.2 g/dl (32-36); MEAN PLATELET VOLUME 9.9 fL (7.4-10.4); PLATELET COUNT 240 K/uL (130-400); RED BLOOD COUNT 3.99 M/uL (4.7-6.1); WHITE BLOOD COUNT 9.69 K/uL (4.8-10.8)
[2016-12-19] MEDS: ALBUT/IPRATROP 3MG/0.5MG NEB 3 ML VIAL INH SCH ×4 (07:06→19:29)
[2016-12-19] MEDS: MoRPHine SULFATE 1 MG/ML 50 ML PCA CASS IV PRN ×5 (07:13→23:07)
[2016-12-19 07:17] LABS: CALCIUM 7.6 mg/dl (8.5-10.1); CREATININE 0.98 mg/dl (0.60-1.40); POTASSIUM 3.6 mmol/L (3.5-5.1)
--- NOTE | 2016-12-19 07:37 | Surgery Progress Note ---
Surgery Progress Note Date of Service Dec 19, 2016. Subjective Post OP Day: 1 + complaints (pain control marginal) Objective Vital Signs: Date Time Temp Pulse Resp B/P (MAP) Pulse Ox O2 Delivery O2 Flow Rate FiO2 12/19/16 07:06 90 16 95 Nasal Cannula 2.0 12/19/16 03:06 37.1 86 16 131/75 (93) 96 Nasal Cannula 2.0 12/19/16 00:05 Nasal Cannula 3.0 12/18/16 22:49 36.7 105 16 151/78 (102) 95 Nasal Cannula 3.0 12/18/16 20:00 37.5 105 18 145/72 (96) 95 Nasal Cannula 3.0 12/18/16 19:00 37.6 106 18 139/76 (97) 94 Nasal Cannula 3.0 12/18/16 18:30 Nasal Cannula 3.0 12/18/16 18:30 Mask 2.0 12/18/16 18:15 87 16 95 Mask 2.0 12/18/16 17:55 37.0 95 18 147/83 (104) 95 Mask 2.0 12/18/16 17:30 88 17 156/81 96 Oxymask 2 12/18/16 17:15 87 18 149/83 96 Oxymask 2 12/18/16 17:05 37.3 86 18 158/84 96 Oxymask 4 12/18/16 16:55 85 17 170/88 97 Oxymask 6 12/18/16 16:45 84 19 162/92 95 Oxymask 8 12/18/16 16:35 86 19 172/95 96 Oxymask 10 12/18/16 16:28 37.0 82 16 167/96 95 Oxymask 10 12/18/16 11:39 66 16 91 Room Air 12/18/16 10:06 72 154/72 (99) 12/18/16 09:37 72 155/73 (100) 12/18/16 08:20 Room Air 12/18/16 07:42 72 165/85 (111) Physical Exam: KENDRICK drainage (860/ 60), urine output (280 overnight) Abdomen: soft, + distended (mildly) Incision(s): drainage (around drain) Laboratory Results: Results Past 24 Hours Test 12/18/16 08:12 12/18/16 11:26 12/18/16 12:06 12/18/16 13:10 Range/Units White Blood Count 8.43 4.8-10.8 K/uL Red Blood Count 4.40 4.7-6.1 M/uL Hemoglobin 13.7 14.0-18.0 g/dL Hematocrit 40.6 42-52 % Mean Corpuscular Volume 92.3 80-100 fL Mean Corpuscular Hemoglobin 31.1 25-34 pg Mean Corpuscular Hemoglobin Concent 33.7 32-36 g/dl RDW Standard Deviation 45.0 36.4-46.3 fL RDW Coefficient of Variation 13.4 11.5-14.5 % Platelet Count 196 130-400 K/uL Mean Platelet Volume 9.7 7.4-10.4 fL Sodium Level 140 142 136-145 mmol/L Potassium Level 2.8 2.9 3.0 3.5-5.1 mmol/L Chloride Level 104 105 98-107 mmol/L Carbon Dioxide Level 28 29 21-32 mmol/L Anion Gap 8.0 8.0 3-11 mmol/L Blood Urea Nitrogen 8 7 7-18 mg/dl Creatinine 0.98 0.95 0.60-1.40 mg/dl Est Creatinine Clear Calc Drug Dose 80.4 83.0 ml/min Estimated GFR () 87.1 90.4 Estimated GFR (Non- 75.1 78.0 BUN/Creatinine Ratio 7.9 7.6 10-20 Random Glucose 102 106 70-99 mg/dl Calcium Level 8.1 8.5 8.5-10.1 mg/dl Magnesium Level 1.9 1.8-2.4 mg/dl Bedside Glucose 109 70-99 mg/dl Test 12/18/16 16:48 12/18/16 18:36 12/18/16 23:59 12/19/16 05:57 Range/Units Bedside Glucose 100 151 143 70-99 mg/dl Potassium Level 3.4 3.5-5.1 mmol/L Test 12/19/16 06:18 Range/Units White Blood Count 9.69 4.8-10.8 K/uL Red Blood Count 3.99 4.7-6.1 M/uL Hemoglobin 12.7 14.0-18.0 g/dL Hematocrit 37.1 42-52 % Mean Corpuscular Volume 93.0 80-100 fL Mean Corpuscular Hemoglobin 31.8 25-34 pg Mean Corpuscular Hemoglobin Concent 34.2 32-36 g/dl RDW Standard Deviation 46.3 36.4-46.3 fL RDW Coefficient of Variation 13.7 11.5-14.5 % Platelet Count 240 130-400 K/uL Mean Platelet Volume 9.9 7.4-10.4 fL Sodium Level 143 136-145 mmol/L Potassium Level 3.6 3.5-5.1 mmol/L Chloride Level 111 98-107 mmol/L Carbon Dioxide Level 25 21-32 mmol/L Anion Gap 7.0 3-11 mmol/L Blood Urea Nitrogen 9 7-18 mg/dl Creatinine 0.98 0.60-1.40 mg/dl Est Creatinine Clear Calc Drug Dose 80.4 ml/min Estimated GFR () 87.1 Estimated GFR (Non- 75.1 BUN/Creatinine Ratio 9.0 10-20 Random Glucose 155 70-99 mg/dl Calcium Level 7.6 8.5-10.1 mg/dl Assessment & Plan s/p sigmoid colectomy for volvulus will start 1 mg continuous on CARTOGRAPHIC AIDE + scheduled Ofirmev x 24hrs UOP adequate K+ corrected initially high drain output (irrigation) but decreased overnight continue NG + peña
--- NOTE | 2016-12-19 08:39 | Anesthesiology Progress Note ---
Anesthesia Post Op Note Date & Time Dec 19, 2016 at 08:38 Vital Signs Pain Intensity: 4.0 Vital Signs Past 12 Hours Date Time Temp Pulse Resp B/P (MAP) Pulse Ox O2 Delivery O2 Flow Rate FiO2 12/19/16 08:09 94 Nasal Cannula 1.0 12/19/16 07:46 36.9 92 18 130/64 (86) 94 Nasal Cannula 1.0 12/19/16 07:06 90 16 95 Nasal Cannula 2.0 12/19/16 03:06 37.1 86 16 131/75 (93) 96 Nasal Cannula 2.0 12/19/16 00:05 Nasal Cannula 3.0 12/18/16 22:49 36.7 105 16 151/78 (102) 95 Nasal Cannula 3.0 Notes Airway Patency, RR, SpO2: stable & adequate BP & HR: stable & adequate Hydration State: stable & adequate Pt Sleeping.
[2016-12-19] MEDS: CARBIDOPA/LEVODOPA 25/100MG TAB PO SCH ×3 (09:00→20:27)
[2016-12-19] MEDS: CIPROFLOXACIN / D5W 400 MG in PREMIXED IN D5W 200 ML IV SCH ×2 (09:21→20:00)
[2016-12-19] MEDS: ACETAMINOPHEN IV 1,000 MG in EMPTY BAG 0 ML IV SCH ×2 (11:46→17:43)
--- NOTE | 2016-12-19 13:47 | Hospitalist Progress Note ---
Hospitalist Progress Note Date of Service Dec 19, 2016. (Cristel Garcia PA-C) Subjective Pt evaluation today including: conversation w/ patient, physical exam, chart review, lab review, review of studies, review of inpatient medication list Patient seen and evaluated. Verbalized no complaints. States pain is well controlled and is hungry. Amaya catheter in place draining dark urine and had reduce output and will continue IVFs. Tolerating ice chips. Does have a tremor noted. Dressing with dried serosang. drainage. Daughter not at bedside but will update if able later today Constitutional: No fever, No chills ENT: No sore throat, No trouble swallowing Respiratory: No shortness of breath Cardiovascular: No chest pain Abdomen: No pain, No nausea, No vomiting (Cristel Garcia PA-C) Medications Current Inpatient Medications Medications (Trade) Dose Ordered Sig/Chester Route Start Time Stop Time Status Last Admin Dose Admin Carbidopa/Levodopa (Sinemet 25/ 100MG Tab) 1 tab TID PO 12/14/16 21:00 01/13/17 20:59 12/18/16 09:34 1 TAB Lorazepam (Ativan Inj) 0.5 mg Q4H PRN IV 12/14/16 16:00 01/13/17 15:59 Lorazepam (Ativan Inj) 1 mg Q4H PRN IV 12/14/16 16:00 01/13/17 15:59 Promethazine HCl 12.5 mg/Sodium Chloride 50.5 ml @ 204 mls/hr Q6H PRN IV 12/14/16 16:00 01/13/17 15:59 Ondansetron HCl (Zofran Inj) 4 mg Q6H PRN IV 12/14/16 16:00 01/13/17 15:59 12/15/16 05:47 4 MG Ranitidine HCl 50 mg/Dextrose 102 ml @ 200 mls/hr Q8H IV 12/14/16 18:00 01/13/17 17:59 12/19/16 11:52 200 MLS/HR Insulin Aspart (novoLOG ASPART) SLIDING SCALE PARAMETER Q6 SC 12/15/16 06:00 01/14/17 05:59 Ciprofloxacin/ Dextrose 400 mg/ Prmx 200 ml @ 100 mls/hr Q12H IV 12/15/16 16:00 12/25/16 20:59 12/19/16 09:21 100 MLS/HR Metronidazole 500 mg/Prmx 100 ml @ 100 mls/hr Q8H IV 12/15/16 18:00 12/25/16 17:59 12/19/16 11:42 100 MLS/HR Lorazepam 0.5 mg/ Syringe 1 ml @ 1 mls/min Q4H PRN IV 12/16/16 21:30 01/15/17 21:29 12/18/16 18:34 1 MLS/MIN Lorazepam 1 mg/ Syringe 1 ml @ 1 mls/min Q4H PRN IV 12/16/16 21:30 01/15/17 21:29 12/16/16 23:42 1 MLS/MIN Albuterol/ Ipratropium (Duoneb) 3 ml QIDR INH 12/17/16 12:00 01/16/17 11:59 12/19/16 11:19 3 ML Albuterol/ Ipratropium (Duoneb) 3 ml Q2R PRN INH 12/17/16 08:15 01/16/17 08:14 Hydralazine HCl (HydrALAZINE INJ) 10 mg Q6H PRN IV. 12/18/16 08:30 01/17/17 08:29 Naloxone HCl (Narcan Inj) 0.1 mg Q5M PRN IV 12/18/16 16:30 01/17/17 16:29 Morphine Sulfate (moRPHine SULFATE ROTARY SURFACE GRINDER) 50 mg PRN PRN IV 12/18/16 17:00 01/01/17 16:59 12/19/16 09:29 50 MG Sodium Chloride 1,000 ml @ 15 mls/hr Q24H IV 12/18/16 17:00 01/17/17 16:59 Potassium Chloride/Sodium Chloride 1,000 ml @ 150 mls/hr Q6H40M IV 12/18/16 17:00 01/17/17 16:59 12/19/16 06:36 150 MLS/HR Acetaminophen 1000 mg/Empty Bag 100 ml @ 400 mls/hr Q8H IV 12/19/16 10:00 12/20/16 02:14 12/19/16 11:46 400 MLS/HR (Cristel Garcia, PA-C) Objective Vital Signs Date Time Temp Pulse Resp B/P (MAP) Pulse Ox O2 Delivery O2 Flow Rate FiO2 12/19/16 12:33 36.8 84 16 122/66 (84) 94 Nasal Cannula 1.0 12/19/16 11:20 86 15 98 Nasal Cannula 1.0 12/19/16 10:27 96 92 12/19/16 08:09 94 Nasal Cannula 1.0 12/19/16 07:46 36.9 92 18 130/64 (86) 94 Nasal Cannula 1.0 12/19/16 07:40 Nasal Cannula 1.0 12/19/16 07:06 90 16 95 Nasal Cannula 2.0 12/19/16 03:06 37.1 86 16 131/75 (93) 96 Nasal Cannula 2.0 12/19/16 00:05 Nasal Cannula 3.0 12/18/16 22:49 36.7 105 16 151/78 (102) 95 Nasal Cannula 3.0 12/18/16 20:00 37.5 105 18 145/72 (96) 95 Nasal Cannula 3.0 12/18/16 19:00 37.6 106 18 139/76 (97) 94 Nasal Cannula 3.0 12/18/16 18:30 Nasal Cannula 3.0 12/18/16 18:30 Mask 2.0 12/18/16 18:15 87 16 95 Mask 2.0 12/18/16 17:55 37.0 95 18 147/83 (104) 95 Mask 2.0 12/18/16 17:30 88 17 156/81 96 Oxymask 2 12/18/16 17:15 87 18 149/83 96 Oxymask 2 12/18/16 17:05 37.3 86 18 158/84 96 Oxymask 4 12/18/16 16:55 85 17 170/88 97 Oxymask 6 12/18/16 16:45 84 19 162/92 95 Oxymask 8 12/18/16 16:35 86 19 172/95 96 Oxymask 10 12/18/16 16:28 37.0 82 16 167/96 95 Oxymask 10 (Cristel Garcia PA-C) Physical Exam General Appearance: WD/WN, no apparent distress Eyes: sclerae normal ENT: hearing grossly normal Neck: supple, no JVD, trachea midline Respiratory/Chest: lungs clear, normal breath sounds, no respiratory distress, no accessory muscle use Cardiovascular: regular rate, rhythm, no gallop, no murmur Abdomen: normal bowel sounds, + pertinent finding (dressing intact with dried serosang drainage - did not remove dressing) Neurologic/Psychiatric: alert Skin: normal color, warm/dry (Crisetl Garcia, CASEYC) Laboratory Results Last 24 Hours Test 12/18/16 16:48 12/18/16 18:36 12/18/16 23:59 12/19/16 05:57 Bedside Glucose 100 mg/dl 151 mg/dl 143 mg/dl Potassium Level 3.4 mmol/L Test 12/19/16 06:18 White Blood Count 9.69 K/uL Red Blood Count 3.99 M/uL Hemoglobin 12.7 g/dL Hematocrit 37.1 % Mean Corpuscular Volume 93.0 fL Mean Corpuscular Hemoglobin 31.8 pg Mean Corpuscular Hemoglobin Concent 34.2 g/dl RDW Standard Deviation 46.3 fL RDW Coefficient of Variation 13.7 % Platelet Count 240 K/uL Mean Platelet Volume 9.9 fL Sodium Level 143 mmol/L Potassium Level 3.6 mmol/L Chloride Level 111 mmol/L Carbon Dioxide Level 25 mmol/L Anion Gap 7.0 mmol/L Blood Urea Nitrogen 9 mg/dl Creatinine 0.98 mg/dl Est Creatinine Clear Calc Drug Dose 80.4 ml/min Estimated GFR () 87.1 Estimated GFR (Non- 75.1 BUN/Creatinine Ratio 9.0 Random Glucose 155 mg/dl Calcium Level 7.6 mg/dl (Cristel Garcia, PA-C) Assessment and Plan This is a 75 yo M with PMHx of T2DM with Diabetic Neuropathy, HTN, Gout, LEN on CPAP, 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 Sigmoid Volvulus S/P Decompression 12/15 and 12/16 and S/P Sigmoid Colectomy 12/18: - Has H/O abdominal surgical removal of polyp and H/O gastroparesis - will limit opioids and benzos when possible - Cipro 400 mg IV BID and Flagyl 500 mg IV Q8H on 12/15 to finish a 10 day course - Ranitidine 50 mg IV Q8H - GI and General Surgery following - recommendations reviewed and addressed T2DM with Diabetic Neuropathy: A1c 5.9 (07/12/16) - Pt was recently taken off metformin by his PCP - continue to monitor and coverage if necessary Hypokalemia: RESOLVED - Replete orally and intravenously - continue to monitor and replete as necessary Parkinson's Disease/Restless Leg Syndrome: STABLE - Gabapentin 300 mg QID and Carbidopa/Levodopa 25/100 mg TID - will allow Sinemet with small sips of water HTN: - On Triamterene/HCT 37.5/25 - 1/2 tablet daily - will hold at this time due to surgical intervention - Hydralazine PRN Gout: - Allopurinol 300 mg daily after advanced diet LEN: - CPAP at night - allow Ativan IV PRN for claustrophobia with CPAP and anxiety - Clonazepam and Sertraline 25 mg daily when diet advanced DVT Prophylaxis: EUSEBIO/SCDs; withhold chemical prophylaxis for surgical intervention Code Status: FULL RESUSCITATION Disposition: Patient from home - daughter prefers return home with home PT/OT if necessary - PT/OT evaluations after surgical recovery Continued [facility] stay due to: multiple IV medications needed Discharge planning: uncertain (Cristel Garcia, LILIA) Reviewed: Pt Seen/Exam by Me (Carmen Simmons MD) History Physician Glass Processing Worker Supervision Note: I interviewed and examined the patient. Discussed with GUILLAUME Garcia and agree with findings and plan as documented in the note. Any exceptions or clarifications are listed here: Pt just got out of bed to chair at the time I saw him and was feeling weak. Tremor from PD has become significant since being off Sinemet. NGT removed Vitals reviewed NAD,sitting in chair RRR no mgr Mild exp wheezes throughout, breathing unlabored Abd hypoactive BS, soft, NT, dressing over midline incision is c/d/i, KENDRICK drain with scant serosang fluid in it Amaya in palce draining clear yellow urine Ext: no edema, no calf tenderness, 2+ DP pulses Neuro: left hand and arm resting tremor, coarse 75 yo male with a h/o PD, DMII, anxiety, HTN, gout, ELN on CPAP, here with sigmoid volvulus requiring sigmoid colectomy. -post-op care as per Surgery, KENDRICK drain and adv diet as tolerated -continue to restart po meds as tolerated-Sinemet today (Sinemet, Dyazide, vitamins, Zoloft, clonazepam) -can give IV ativan prn anxiety in place of clonazepam for now Severe hypokalemia secondary to poor po intake--> resolved with replacement -follow post-op CBC, PRP Documented By: Carmen Simmons (Carmen Simmons MD)
[2016-12-19] MEDS: SODIUM CHLORIDE 0.9% 1000ML 1,000 ML IV SCH (17:00)
[2016-12-20] VITALS (10 sets, daily range): BP systolic 120–159; BP diastolic 68–81; PULSE 79–105; TEMP 36.6–37; O2SAT 91–95
[2016-12-20] MEDS: METRONIDAZOLE / NSS 500 MG in PREMIXED NSS 100 ML IV SCH ×3 (01:41→17:44)
[2016-12-20] MEDS: NSS + 20MEQ KCL 1000ML 1,000 ML IV SCH ×3 (01:41→15:49)
[2016-12-20] MEDS: RANITIDINE IV 50 MG in DEXTROSE 5% 100ML 100 ML IV SCH ×2 (01:41→11:21)
[2016-12-20] MEDS: ACETAMINOPHEN IV 1,000 MG in EMPTY BAG 0 ML IV SCH (01:42)
[2016-12-20] MEDS: INSULIN ASPART 100 UNITS/ML 3 ML PEN SC SCH ×3 (05:50→18:00)
[2016-12-20] MEDS: ALBUT/IPRATROP 3MG/0.5MG NEB 3 ML VIAL INH SCH ×4 (07:02→20:05)
[2016-12-20] MEDS: MoRPHine SULFATE 1 MG/ML 50 ML PCA CASS IV PRN ×4 (07:08→22:47)
[2016-12-20] MEDS: CIPROFLOXACIN / D5W 400 MG in PREMIXED IN D5W 200 ML IV SCH ×2 (09:01→19:43)
[2016-12-20] MEDS: CARBIDOPA/LEVODOPA 25/100MG TAB PO SCH ×3 (09:02→20:48)
[2016-12-20 10:26] LABS: HEMATOCRIT 33.4 % (42-52); MEAN CELL VOLUME 95.2 fL (80-100); MEAN CORPUSCULAR HEMOGLOBIN 30.8 pg (25-34); MEAN CORPUSCULAR HGB CONC 32.3 g/dl (32-36); MEAN PLATELET VOLUME 9.3 fL (7.4-10.4); PLATELET COUNT 202 K/uL (130-400); RED BLOOD COUNT 3.51 M/uL (4.7-6.1); WHITE BLOOD COUNT 11.29 K/uL (4.8-10.8)
[2016-12-20 10:47] LABS: CALCIUM 7.5 mg/dl (8.5-10.1); CREATININE 0.94 mg/dl (0.60-1.40); POTASSIUM 3.8 mmol/L (3.5-5.1)
[2016-12-20] MEDS: LORAZEPAM INJ 1 MG in SYRINGE 0.5 ML IV PRN (10:51)
[2016-12-20] MEDS ORDERED: CLONAZEPAM 0.5 MG TAB PO PRN (14:15)
--- NOTE | 2016-12-20 14:29 | Hospitalist Progress Note ---
Hospitalist Progress Note Date of Service Dec 20, 2016. (Cristel Garcia PA-C) Subjective Pt evaluation today including: conversation w/ patient, conversation w/ family , physical exam, chart review, lab review, review of studies, review of inpatient medication list Patient seen and evaluated. No acute events overnight. Patient received ativan prior to exam and is more drowsy than normal but verbalizes no complaints. Per son at bedside, surgery ok with advancing to clear liquids and will watch for order. Will reintroduce oral medications Nursing staff reporting more prevalent tremors which seem to be largely calm at this time but he is more lethargic. Amaya draining dark urine. Urine output improving. Additional Comments: ROS largely deferred due to lethargy. Verbalized no pain. Reports hunger. (Cristel Garcia PA-C) Medications Current Inpatient Medications Medications (Trade) Dose Ordered Sig/Chester Route Start Time Stop Time Status Last Admin Dose Admin Carbidopa/Levodopa (Sinemet 25/ 100MG Tab) 1 tab TID PO 12/14/16 21:00 01/13/17 20:59 12/20/16 09:02 1 TAB Lorazepam (Ativan Inj) 0.5 mg Q4H PRN IV 12/14/16 16:00 01/13/17 15:59 Lorazepam (Ativan Inj) 1 mg Q4H PRN IV 12/14/16 16:00 01/13/17 15:59 Promethazine HCl 12.5 mg/Sodium Chloride 50.5 ml @ 204 mls/hr Q6H PRN IV 12/14/16 16:00 01/13/17 15:59 Ondansetron HCl (Zofran Inj) 4 mg Q6H PRN IV 12/14/16 16:00 01/13/17 15:59 12/15/16 05:47 4 MG Ranitidine HCl 50 mg/Dextrose 102 ml @ 200 mls/hr Q8H IV 12/14/16 18:00 01/13/17 17:59 12/20/16 11:21 200 MLS/HR Insulin Aspart (novoLOG ASPART) SLIDING SCALE PARAMETER Q6 SC 12/15/16 06:00 01/14/17 05:59 Ciprofloxacin/ Dextrose 400 mg/ Prmx 200 ml @ 100 mls/hr Q12H IV 12/15/16 16:00 12/25/16 20:59 12/20/16 09:01 100 MLS/HR Metronidazole 500 mg/Prmx 100 ml @ 100 mls/hr Q8H IV 12/15/16 18:00 12/25/16 17:59 12/20/16 11:21 100 MLS/HR Lorazepam 0.5 mg/ Syringe 1 ml @ 1 mls/min Q4H PRN IV 12/16/16 21:30 01/15/17 21:29 12/18/16 18:34 1 MLS/MIN Lorazepam 1 mg/ Syringe 1 ml @ 1 mls/min Q4H PRN IV 12/16/16 21:30 01/15/17 21:29 12/20/16 10:51 1 MLS/MIN Albuterol/ Ipratropium (Duoneb) 3 ml QIDR INH 12/17/16 12:00 01/16/17 11:59 12/20/16 11:08 3 ML Albuterol/ Ipratropium (Duoneb) 3 ml Q2R PRN INH 12/17/16 08:15 01/16/17 08:14 Hydralazine HCl (HydrALAZINE INJ) 10 mg Q6H PRN IV. 12/18/16 08:30 01/17/17 08:29 Naloxone HCl (Narcan Inj) 0.1 mg Q5M PRN IV 12/18/16 16:30 01/17/17 16:29 Morphine Sulfate (moRPHine SULFATE REHABILITATION ENGINEER) 50 mg PRN PRN IV 12/18/16 17:00 01/01/17 16:59 12/20/16 07:08 50 MG Sodium Chloride 1,000 ml @ 15 mls/hr Q24H IV 12/18/16 17:00 01/17/17 16:59 Potassium Chloride/Sodium Chloride 1,000 ml @ 150 mls/hr Q6H40M IV 12/18/16 17:00 01/17/17 16:59 12/20/16 09:02 150 MLS/HR (Cristel Garcia, LILIA) Objective Vital Signs Date Time Temp Pulse Resp B/P (MAP) Pulse Ox O2 Delivery O2 Flow Rate FiO2 12/20/16 12:00 36.9 90 12 120/70 (87) 92 Room Air 12/20/16 11:10 92 14 92 Room Air 12/20/16 08:07 93 Room Air 12/20/16 08:00 Room Air 12/20/16 08:00 37.0 89 14 130/70 (90) 93 Room Air 12/20/16 07:04 84 16 95 Nasal Cannula 2.0 12/20/16 03:22 37.0 79 22 129/70 (89) 94 Nasal Cannula 2.0 12/19/16 23:50 Nasal Cannula 2.0 12/19/16 22:52 36.8 84 16 121/67 (85) 93 Nasal Cannula 2.0 12/19/16 19:29 83 16 96 Nasal Cannula 2.0 12/19/16 15:38 79 16 95 Room Air 12/19/16 15:15 Room Air 12/19/16 15:12 36.9 81 20 128/68 (88) Nasal Cannula 1.5 (Cristel Garcia PA-C) Physical Exam General Appearance: WD/WN, no apparent distress Neck: supple, no JVD, trachea midline Respiratory/Chest: lungs clear, normal breath sounds, no respiratory distress, no accessory muscle use Cardiovascular: regular rate, rhythm, no gallop, no murmur Abdomen: normal bowel sounds Neurologic/Psychiatric: + pertinent finding (lethargic but opens eyes to touch but falls back to sleep easily) Skin: normal color, warm/dry (Cristel Garcia, PA-C) Laboratory Results Last 24 Hours Test 12/19/16 18:34 12/19/16 23:51 12/20/16 05:34 12/20/16 05:50 Bedside Glucose 118 mg/dl 118 mg/dl 94 mg/dl 106 mg/dl Test 12/20/16 10:15 12/20/16 11:51 White Blood Count 11.29 K/uL Red Blood Count 3.51 M/uL Hemoglobin 10.8 g/dL Hematocrit 33.4 % Mean Corpuscular Volume 95.2 fL Mean Corpuscular Hemoglobin 30.8 pg Mean Corpuscular Hemoglobin Concent 32.3 g/dl RDW Standard Deviation 48.8 fL RDW Coefficient of Variation 14.3 % Platelet Count 202 K/uL Mean Platelet Volume 9.3 fL Sodium Level 143 mmol/L Potassium Level 3.8 mmol/L Chloride Level 115 mmol/L Carbon Dioxide Level 26 mmol/L Anion Gap 2.0 mmol/L Blood Urea Nitrogen 11 mg/dl Creatinine 0.94 mg/dl Est Creatinine Clear Calc Drug Dose 83.9 ml/min Estimated GFR () 91.6 Estimated GFR (Non- 79.0 BUN/Creatinine Ratio 12.0 Random Glucose 115 mg/dl Calcium Level 7.5 mg/dl Bedside Glucose 113 mg/dl (Cristel Garcia, PAAngelC) Assessment and Plan This is a 75 yo M with PMHx of T2DM with Diabetic Neuropathy, HTN, Gout, LEN on CPAP, 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 Sigmoid Volvulus S/P Decompression 12/15 and 12/16 and S/P Sigmoid Colectomy 12/18: - Has H/O abdominal surgical removal of polyp and H/O gastroparesis - will limit opioids and benzos when possible - Cipro 400 mg IV BID and Flagyl 500 mg IV Q8H on 12/15 to finish a 10 day course - DAY #6 - Ranitidine 150 mg BID - GI and General Surgery following - recommendations reviewed and addressed T2DM with Diabetic Neuropathy: A1c 5.9 (07/12/16) - Pt was recently taken off metformin by his PCP - continue to monitor and coverage if necessary Hypokalemia: RESOLVED - Continue to monitor and replete as necessary Parkinson's Disease/Restless Leg Syndrome: STABLE - Gabapentin 300 mg QID and Carbidopa/Levodopa 25/100 mg TID HTN: - On Triamterene/HCT 37.5/25 - 1/2 tablet daily - will hold at this time due to surgical intervention - Hydralazine PRN Gout: - Allopurinol 300 mg daily - will hold at this time LEN: - CPAP at night - allow Ativan IV PRN for claustrophobia with CPAP and anxiety - Clonazepam and Sertraline 25 mg daily DVT Prophylaxis: EUSEBIO/SCDs; withhold chemical prophylaxis for surgical intervention Code Status: FULL RESUSCITATION Disposition: Patient from home - daughter prefers return home with home PT/OT if necessary - PT/OT evaluations - given weakness/surgical intervention/tremors - unsure of the ability for home PT/OT services -- Anticipate advancement of diet and hopeful wean from REHABILITATION ENGINEER - possible stay 3 -4 days Continued [facility] stay due to: multiple IV medications needed Discharge planning: uncertain (Cristel Garcia, CASEYC) Reviewed: Pt Seen/Exam by Me (Carmen Simmons MD) History Physician Developmental Education Instructor Supervision Note: I interviewed and examined the patient. Discussed with GUILLAUME Garcia and agree with findings and plan as documented in the note. Any exceptions or clarifications are listed here: Pt received IV ativan today at daughter's request this AM as he was getting agitated. He is also on morphine REHABILITATION ENGINEER, lethargic and daughter reports "not acting himself" currently. IV site in hand is leaking and IV team here to change site. ALso with tea colored urine and low normal UOP. +10L this admission Vitals reviewed NAD,sitting in bed RRR no mgr Mild exp wheezes throughout, breathing unlabored, some faint crackles at bases Abd hypoactive BS, soft, NT, dressing over midline incision is c/d/i, KENDRICK drain with scant serosang fluid in it Amaya in palce draining clear tea-colored urine Ext: 1+ pitting edema bilat legs, no calf tenderness, 2+ DP pulses; hands and arms with trace edema Neuro: no further tremors in extremities, is more lethargic today but answers questions and is awake 75 yo male with a h/o PD, DMII, anxiety, HTN, gout, LEN on CPAP, here with sigmoid volvulus requiring sigmoid colectomy. Lethargy today most likely secondary to IV ativan and REHABILITATION ENGINEER pump with morphine. DOes have slight leukocytosis today but afebrile. -post-op care as per Surgery, KENDRICK drain and adv diet as tolerated to clears today -restart all po meds -increase Sinemet to home dose which is actually 1.5 tabs tid -no further IV ativan prn anxiety, will restart home clonazepam qhs -fluid overloaded--> stop IVFs as is now taking clears, give lasix 20mg IV x 1 now for decreased UOP and edema Documented By: Carmen Simmons (Carmen Simmons MD)
[2016-12-20] MEDS: SODIUM CHLORIDE 0.9% 1000ML 1,000 ML IV SCH ×2 (16:52→17:45)
[2016-12-20] MEDS: GABAPENTIN 300 MG CAP PO SCH ×2 (16:52→20:48)
[2016-12-20] MEDS ORDERED: FUROSEMIDE INJ 20 MG in SYRINGE 0 ML IV ONE (17:30)
[2016-12-20] MEDS: CLONAZEPAM 0.5 MG TAB PO SCH (20:47)
[2016-12-20] MEDS: RANITIDINE HCL 150 MG TAB PO SCH (20:49)
[2016-12-21] VITALS (12 sets, daily range): BP systolic 120–174; BP diastolic 68–82; PULSE 73–101; TEMP 37–37.4; O2SAT 90–96
[2016-12-21] MEDS: MoRPHine SULFATE 1 MG/ML 50 ML PCA CASS IV PRN ×4 (00:49→23:10)
[2016-12-21] MEDS: METRONIDAZOLE / NSS 500 MG in PREMIXED NSS 100 ML IV SCH ×3 (01:32→17:41)
[2016-12-21] MEDS: HydrALAZINE HCL 20 MG/ML VIAL IV. PRN (03:48)
[2016-12-21] MEDS: ONDANSETRON INJ 2 MG/ML 2 ML VIAL IV PRN ×2 (04:46→21:32)
[2016-12-21] MEDS: INSULIN ASPART 100 UNITS/ML 3 ML PEN SC SCH ×5 (06:00→21:00)
[2016-12-21] MEDS: ALBUT/IPRATROP 3MG/0.5MG NEB 3 ML VIAL INH SCH ×4 (06:57→20:58)
[2016-12-21] MEDS: RANITIDINE HCL 150 MG TAB PO SCH ×2 (07:27→21:09)
[2016-12-21] MEDS: CIPROFLOXACIN / D5W 400 MG in PREMIXED IN D5W 200 ML IV SCH ×2 (07:27→19:50)
[2016-12-21] MEDS: GABAPENTIN 300 MG CAP PO SCH ×4 (07:27→21:09)
[2016-12-21] MEDS: SERTRALINE HCL 50 MG TAB PO SCH (07:28)
[2016-12-21 08:28] LABS: HEMATOCRIT 35.7 % (42-52); MEAN CELL VOLUME 94.9 fL (80-100); MEAN CORPUSCULAR HEMOGLOBIN 29.5 pg (25-34); MEAN CORPUSCULAR HGB CONC 31.1 g/dl (32-36); MEAN PLATELET VOLUME 9.4 fL (7.4-10.4); PLATELET COUNT 263 K/uL (130-400); RED BLOOD COUNT 3.76 M/uL (4.7-6.1); WHITE BLOOD COUNT 12.37 K/uL (4.8-10.8)
[2016-12-21 08:47] LABS: BUN/CREATININE RATIO 10.1 (10-20); CALCIUM 8.3 mg/dl (8.5-10.1); CREATININE 0.96 mg/dl (0.60-1.40); POTASSIUM 3.3 mmol/L (3.5-5.1)
[2016-12-21] MEDS: CARBIDOPA/LEVODOPA 25/100MG TAB PO SCH ×3 (09:40→21:08)
--- NOTE | 2016-12-21 13:26 | Surgery Progress Note ---
Surgery Progress Note Date of Service Dec 21, 2016. Subjective Post OP Day: 3 pt feeling ok... no nausea. no bm yet. denies pain. Objective Vital Signs: Date Time Temp Pulse Resp B/P (MAP) Pulse Ox O2 Delivery O2 Flow Rate FiO2 12/21/16 12:00 37.1 88 14 130/70 (90) 94 Room Air 12/21/16 12:00 37.1 88 14 130/70 (90) 94 Room Air 12/21/16 11:03 98 16 95 Room Air 12/21/16 10:11 120/68 (85) 12/21/16 07:46 90 Room Air 12/21/16 07:45 37.2 98 16 174/72 (106) 90 Room Air 12/21/16 07:30 Room Air 12/21/16 07:00 101 18 90 Room Air 12/21/16 05:41 150/79 (102) 12/21/16 03:00 37.1 93 16 168/78 (108) 92 Room Air 12/21/16 00:03 CPAP 12/20/16 23:00 37.0 105 18 159/81 (107) 95 CPAP 12/20/16 20:05 104 18 92 Room Air 12/20/16 15:50 36.6 104 18 145/68 (93) 92 Room Air 12/20/16 15:32 91 18 91 Room Air 12/20/16 15:15 Room Air General Appearance: no apparent distress Abdomen: non distended, soft Incision(s): dry, intact Laboratory Results: Results Past 24 Hours Test 12/20/16 18:15 12/20/16 23:57 12/21/16 06:01 12/21/16 07:36 Range/Units Bedside Glucose 108 108 97 70-99 mg/dl White Blood Count 12.37 4.8-10.8 K/uL Red Blood Count 3.76 4.7-6.1 M/uL Hemoglobin 11.1 14.0-18.0 g/dL Hematocrit 35.7 42-52 % Mean Corpuscular Volume 94.9 80-100 fL Mean Corpuscular Hemoglobin 29.5 25-34 pg Mean Corpuscular Hemoglobin Concent 31.1 32-36 g/dl RDW Standard Deviation 48.4 36.4-46.3 fL RDW Coefficient of Variation 14.1 11.5-14.5 % Platelet Count 263 130-400 K/uL Mean Platelet Volume 9.4 7.4-10.4 fL Sodium Level 143 136-145 mmol/L Potassium Level 3.3 3.5-5.1 mmol/L Chloride Level 108 98-107 mmol/L Carbon Dioxide Level 27 21-32 mmol/L Anion Gap 8.0 3-11 mmol/L Blood Urea Nitrogen 10 7-18 mg/dl Creatinine 0.96 0.60-1.40 mg/dl Est Creatinine Clear Calc Drug Dose 82.1 ml/min Estimated GFR () 89.3 Estimated GFR (Non- 77.0 BUN/Creatinine Ratio 10.1 10-20 Random Glucose 103 70-99 mg/dl Calcium Level 8.3 8.5-10.1 mg/dl Magnesium Level 1.9 1.8-2.4 mg/dl Test 12/21/16 12:08 Range/Units Bedside Glucose 128 70-99 mg/dl Assessment & Plan 12/21/26 doing well clinically awaiting bowel fx Yair serous may increase to full liquids follow wbc 12/19/16 sigmoid volvulus partially decompressed after endoscopy x2 and rectal tube placement high likelihood of recurrence once tube is removed will proceed with sigmoid colectomy this afternoon as above. discussed with pt and his daughter. discussed options/risks. discussed high likelihood of recurrence. discussed surgical risks ( bleeding/ infection/dvt/pe/mi/leaks/injury to other organs such as ureter/bladder/small bowel etc...). answered questions. will proceed with open sigmoidectomy this afternoon. sigmoid volvulus partially decompressed after endoscopy x2 and rectal tube placement high likelihood of recurrence once tube is removed will proceed with sigmoid colectomy this afternoon as above. discussed with pt and his daughter. discussed options/risks. discussed high likelihood of recurrence. discussed surgical risks ( bleeding/ infection/dvt/pe/mi/leaks/injury to other organs such as ureter/bladder/small bowel etc...). answered questions. will proceed with open sigmoidectomy this afternoon.
[2016-12-21] MEDS ORDERED: POTASSIUM CHLORIDE 10 MEQ TABCR PO STA (13:58)
[2016-12-21] MEDS ORDERED: FUROSEMIDE INJ 20 MG in SYRINGE 0 ML IV ONE (14:00)
--- NOTE | 2016-12-21 15:22 | Hospitalist Progress Note ---
Hospitalist Progress Note Date of Service Dec 21, 2016. (Cristel Garcia, CASEYC) Subjective Pt evaluation today including: conversation w/ patient, conversation w/ family , physical exam, chart review, lab review, review of studies, review of inpatient medication list Voiding: peña catheter in place Patient seen and evaluated. Sitting in bedside chair and verbalizes no complaints. He is still somewhat lethargic today but improved compared to yesterday. Does have eyes open, follows commands, and can answer simple questions but easily falls back to sleep. Peña catheter remains with dark urine. UO improved with Lasix yesterday but still +9000 fluid balance. Updated son at bedside and answered any questions. Did mention that the patient may be better served at an inpatient rehab when medically cleared for discharge. Constitutional: No fever, No chills Respiratory: No cough, No shortness of breath Cardiovascular: No chest pain Abdomen: No pain, No nausea, No vomiting, No diarrhea, No constipation Heme: No abnormal bleeding/bruising (Cristel Garcia, CASEYC) Medications Current Inpatient Medications Medications (Trade) Dose Ordered Sig/Chester Route Start Time Stop Time Status Last Admin Dose Admin Promethazine HCl 12.5 mg/Sodium Chloride 50.5 ml @ 204 mls/hr Q6H PRN IV 12/14/16 16:00 01/13/17 15:59 Ondansetron HCl (Zofran Inj) 4 mg Q6H PRN IV 12/14/16 16:00 01/13/17 15:59 12/21/16 04:46 4 MG Insulin Aspart (novoLOG ASPART) SLIDING SCALE PARAMETER Q6 SC 12/15/16 06:00 01/14/17 05:59 Ciprofloxacin/ Dextrose 400 mg/ Prmx 200 ml @ 100 mls/hr Q12H IV 12/15/16 16:00 12/25/16 20:59 12/21/16 07:27 100 MLS/HR Metronidazole 500 mg/Prmx 100 ml @ 100 mls/hr Q8H IV 12/15/16 18:00 12/25/16 17:59 12/21/16 09:39 100 MLS/HR Albuterol/ Ipratropium (Duoneb) 3 ml QIDR INH 12/17/16 12:00 01/16/17 11:59 12/21/16 11:02 3 ML Albuterol/ Ipratropium (Duoneb) 3 ml Q2R PRN INH 12/17/16 08:15 01/16/17 08:14 Hydralazine HCl (HydrALAZINE INJ) 10 mg Q6H PRN IV. 12/18/16 08:30 01/17/17 08:29 12/21/16 03:48 10 MG Naloxone HCl (Narcan Inj) 0.1 mg Q5M PRN IV 12/18/16 16:30 01/17/17 16:29 Morphine Sulfate (moRPHine SULFATE BALE PILER) 50 mg PRN PRN IV 12/18/16 17:00 01/01/17 16:59 12/21/16 15:07 50 MG Sodium Chloride 1,000 ml @ 15 mls/hr Q24H IV 12/18/16 17:00 01/17/17 16:59 12/20/16 17:45 15 MLS/HR Gabapentin (Neurontin Cap) 300 mg QID PO 12/20/16 17:00 01/19/17 16:59 12/21/16 12:40 300 MG Ranitidine HCl (zANTac TAB) 150 mg BID PO 12/20/16 21:00 01/19/17 20:59 12/21/16 07:27 150 MG Sertraline HCl (Zoloft Tab) 25 mg DAILY PO 12/21/16 09:00 01/20/17 08:59 12/21/16 07:28 25 MG Carbidopa/Levodopa (Sinemet 25/ 100MG Tab) 1.5 tab TID PO 12/20/16 21:00 01/13/17 20:59 12/21/16 14:29 1.5 TAB Clonazepam (Klonopin Tab) 0.5 mg HS PO 12/20/16 21:00 01/19/17 14:14 12/20/16 20:47 0.5 MG (Cristel Garcia PA-C) Objective Vital Signs Date Time Temp Pulse Resp B/P (MAP) Pulse Ox O2 Delivery O2 Flow Rate FiO2 12/21/16 14:56 37.0 73 19 137/70 (92) 93 Room Air 12/21/16 12:00 37.1 88 14 130/70 (90) 94 Room Air 12/21/16 12:00 37.1 88 14 130/70 (90) 94 Room Air 12/21/16 11:03 98 16 95 Room Air 12/21/16 10:11 120/68 (85) 12/21/16 07:46 90 Room Air 12/21/16 07:45 37.2 98 16 174/72 (106) 90 Room Air 12/21/16 07:30 Room Air 12/21/16 07:00 101 18 90 Room Air 12/21/16 05:41 150/79 (102) 12/21/16 03:00 37.1 93 16 168/78 (108) 92 Room Air 12/21/16 00:03 CPAP 12/20/16 23:00 37.0 105 18 159/81 (107) 95 CPAP 12/20/16 20:05 104 18 92 Room Air 12/20/16 15:50 36.6 104 18 145/68 (93) 92 Room Air 12/20/16 15:32 91 18 91 Room Air (Cristel Garcia PA-C) Physical Exam General Appearance: WD/WN, no apparent distress Eyes: sclerae normal ENT: hearing grossly normal Neck: supple, no JVD, trachea midline Respiratory/Chest: lungs clear, normal breath sounds, no respiratory distress, no accessory muscle use Cardiovascular: regular rate, rhythm, no gallop, no murmur Abdomen: normal bowel sounds, non tender, soft, + pertinent finding (dressing applied that is clean/dry/intact; KENDRICK drain with serosang drainage) Extremities: no calf tenderness Neurologic/Psychiatric: alert (but drowsy) Skin: normal color, warm/dry (Cristel Garcia PA-C) Laboratory Results Last 24 Hours Test 12/20/16 18:15 12/20/16 23:57 12/21/16 06:01 12/21/16 07:36 Bedside Glucose 108 mg/dl 108 mg/dl 97 mg/dl White Blood Count 12.37 K/uL Red Blood Count 3.76 M/uL Hemoglobin 11.1 g/dL Hematocrit 35.7 % Mean Corpuscular Volume 94.9 fL Mean Corpuscular Hemoglobin 29.5 pg Mean Corpuscular Hemoglobin Concent 31.1 g/dl RDW Standard Deviation 48.4 fL RDW Coefficient of Variation 14.1 % Platelet Count 263 K/uL Mean Platelet Volume 9.4 fL Sodium Level 143 mmol/L Potassium Level 3.3 mmol/L Chloride Level 108 mmol/L Carbon Dioxide Level 27 mmol/L Anion Gap 8.0 mmol/L Blood Urea Nitrogen 10 mg/dl Creatinine 0.96 mg/dl Est Creatinine Clear Calc Drug Dose 82.1 ml/min Estimated GFR () 89.3 Estimated GFR (Non- 77.0 BUN/Creatinine Ratio 10.1 Random Glucose 103 mg/dl Calcium Level 8.3 mg/dl Magnesium Level 1.9 mg/dl Test 12/21/16 12:08 Bedside Glucose 128 mg/dl (Cristel Garcia, PAAngelC) Assessment and Plan This is a 75 yo M with PMHx of T2DM with Diabetic Neuropathy, HTN, Gout, LEN on CPAP, 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 Sigmoid Volvulus S/P Decompression 12/15 and 12/16 and S/P Sigmoid Colectomy 12/18: - Has H/O abdominal surgical removal of polyp and H/O gastroparesis - will limit opioids and benzos when possible - Cipro 400 mg IV BID and Flagyl 500 mg IV Q8H on 12/15 to finish a 10 day course - DAY #7 - Ranitidine 150 mg BID - GI and General Surgery following - recommendations reviewed and addressed - advance to clear liquids Reduced Urine Output: - UO improving with IV Lasix but urine remains dark - daily weights and will give another dose Lasix IV. - Obtain U/A as WBC are trending up - may be altered due to current Abx - Given increased WBC - if diarrhea present will need to check C. diff T2DM with Diabetic Neuropathy: A1c 5.9 (07/12/16) - Pt was recently taken off metformin by his PCP - continue to monitor and coverage if necessary - no coverage required so far Hypokalemia: RESOLVED - Continue to monitor and replete as necessary Parkinson's Disease/Restless Leg Syndrome: STABLE - Gabapentin 300 mg QID and Carbidopa/Levodopa 25/100 mg TID HTN: - On Triamterene/HCT 37.5/25 - 1/2 tablet daily - will hold at this time due to surgical intervention - Hydralazine PRN Gout: - Allopurinol 300 mg daily - will hold at this time LEN: - CPAP at night - allow Ativan IV PRN for claustrophobia with CPAP and anxiety - Clonazepam and Sertraline 25 mg daily DVT Prophylaxis: EUSEBIO/SCDs; withhold chemical prophylaxis for surgical intervention Code Status: FULL RESUSCITATION Disposition: Patient from home - daughter prefers return home with home PT/OT if necessary - PT/OT evaluations - given weakness/surgical intervention/tremors - unsure of the ability for home PT/OT services - Did discuss with son that he may need inpatient rehab instead of home services and expressed that the goal is the safest option for discharge -- Anticipate advancement of diet and hopeful wean from BALE PILER - possible stay 3 -4 days Continued [facility] stay due to: multiple IV medications needed Discharge planning: uncertain (Cristel Garcia, LILIA) Reviewed: Pt Seen/Exam by Me (Carmen Simmons MD) History Physician First Leveler Supervision Note: I interviewed and examined the patient. Discussed with GUILLAUME Garcia and agree with findings and plan as documented in the note. Any exceptions or clarifications are listed here: had good UOP yesterday with IV lasix, WBC count creeping up today, afebrile. He denies flatus or BM but is eating and tolerating diet. Denies cough or CP or SOB Vitals reviewed NAD,sitting in bed RRR no mgr CTAB, breathing unlabored Abd hypoactive BS, soft, NT, dressing over midline incision is with scant serosang drainge, KENDRICK drain with scant serosang fluid in it Peña in palce draining clear yellow urine Ext: trace pitting edema bilat legs improved from yesterday, no calf tenderness , 2+ DP pulses Neuro: no further tremors in extremities, is more alert today and oriented x 3, answering all questions appropriately 75 yo male with a h/o PD, DMII, anxiety, HTN, gout, LEN on CPAP, here with sigmoid volvulus requiring sigmoid colectomy. DOes have slightly worse leukocytosis today but afebrile. -checking UA and Ur cx to r/o UTI as cause of leukocytosis -continue diuresis -post-op care as per Surgery, KENDRICK drain and adv diet as tolerated to full liquids today Documented By: Carmen Simmons (Carmen Simmons MD)
[2016-12-21] MEDS ORDERED: NURSING VERBAL MED ORDER ONE (16:45)
[2016-12-21] MEDS: SODIUM CHLORIDE 0.9% 1000ML 1,000 ML IV SCH (17:10)
[2016-12-21 17:21] LABS: URINE APPEARANCE CLEAR (CLEAR); URINE BILIRUBIN NEG (NEG); URINE COLOR YELLOW; URINE NITRITE NEG (NEG); URINE SPECIFIC GRAVITY 1.018 (1.000-1.030); UROBILINOGEN NEG (NEG); ZZURINE CULT IF INDIC CATH NO
[2016-12-21 17:28] LABS: MANUAL MICROSCOPIC REQUIRED? NO; REVIEW REQ? YES
[2016-12-21] MEDS: CLONAZEPAM 0.5 MG TAB PO SCH (19:49)
[2016-12-22] VITALS (14 sets, daily range): BP systolic 122–182; BP diastolic 53–95; PULSE 80–100; TEMP 36.5–37.4; O2SAT 87–96
[2016-12-22] MEDS: METRONIDAZOLE / NSS 500 MG in PREMIXED NSS 100 ML IV SCH ×3 (02:38→18:16)
[2016-12-22] MEDS: ONDANSETRON INJ 2 MG/ML 2 ML VIAL IV PRN ×2 (03:46→16:28)
[2016-12-22] MEDS: HydrALAZINE HCL 20 MG/ML VIAL IV. PRN ×2 (03:53→16:40)
[2016-12-22] MEDS: PROMETHAZINE HCL INJ 12.5 MG in SODIUM CHLORIDE 0.9% 50ML 50 ML IV PRN ×3 (05:28→23:16)
[2016-12-22] MEDS ORDERED: PROCHLORPERAZINE INJ 5 MG in SYRINGE 4 ML IV STA (06:09)
[2016-12-22] MEDS ORDERED: PANTOprazole INJ 40 MG in SYRINGE 0 ML IV ONE (06:10)
[2016-12-22 06:46] LABS: GASTRIC OCCULT BLOOD POS (NEG)
[2016-12-22] MEDS: MoRPHine SULFATE 1 MG/ML 50 ML PCA CASS IV PRN ×3 (07:08→15:10)
[2016-12-22] MEDS: CARBIDOPA/LEVODOPA 25/100MG TAB PO SCH ×2 (07:13→13:35)
[2016-12-22] MEDS: SERTRALINE HCL 50 MG TAB PO SCH (07:14)
[2016-12-22] MEDS: RANITIDINE HCL 150 MG TAB PO SCH (07:14)
[2016-12-22] MEDS: GABAPENTIN 300 MG CAP PO SCH ×2 (07:14→13:35)
[2016-12-22] MEDS: CIPROFLOXACIN / D5W 400 MG in PREMIXED IN D5W 200 ML IV SCH ×2 (07:14→20:14)
[2016-12-22] MEDS: ALBUT/IPRATROP 3MG/0.5MG NEB 3 ML VIAL INH SCH ×4 (07:17→20:40)
[2016-12-22 07:30] LABS: BASO % 0.1 %; BASO ABS # 0.01 K/uL (0-0.2); COMPLETE YES; EOS % 0.1 %; HEMATOCRIT 36.4 % (42-52); IG% 0.6 %; LYMPH % 6.5 %; LYMPH ABS # 0.73 K/uL (1.2-3.4); MEAN CORPUSCULAR HEMOGLOBIN 29.5 pg (25-34); MEAN PLATELET VOLUME 9.6 fL (7.4-10.4); MONO % 9.4 %; NEUT % 83.3 %; PLATELET COUNT 310 K/uL (130-400); RED BLOOD COUNT 3.83 M/uL (4.7-6.1); WHITE BLOOD COUNT 11.31 K/uL (4.8-10.8)
[2016-12-22] MEDS: INSULIN ASPART 100 UNITS/ML 3 ML PEN SC SCH ×4 (08:00→22:08)
[2016-12-22 08:06] LABS: CALCIUM 8.3 mg/dl (8.5-10.1); CREATININE 0.96 mg/dl (0.60-1.40); MAGNESIUM 1.9 mg/dl (1.8-2.4); POTASSIUM 3.4 mmol/L (3.5-5.1)
[2016-12-22] MEDS ORDERED: POTASSIUM CHLORIDE 10 MEQ TABCR PO STA (08:20)
[2016-12-22] MEDS: TRIAMTERENE/HCTZ 37.5/25MG TAB PO SCH (09:06)
[2016-12-22] MEDS: ALLOPURINOL 300 MG TAB PO SCH (09:07)
--- NOTE | 2016-12-22 09:08 | Surgery Progress Note ---
Surgery Progress Note Date of Service Dec 22, 2016. Subjective Post OP Day: 4 pt somnolent but no complaints denies pain no bm yet Objective Vital Signs: Date Time Temp Pulse Resp B/P (MAP) Pulse Ox O2 Delivery O2 Flow Rate FiO2 12/22/16 07:30 Room Air 12/22/16 07:19 100 18 95 Room Air 12/22/16 07:04 36.9 100 20 167/74 (105) 95 Nasal Cannula 2.0 12/22/16 06:37 165/75 (105) 12/22/16 04:00 Nasal Cannula 2.0 12/22/16 03:53 170/95 (120) 12/22/16 03:23 37.2 98 22 182/85 (117) 94 Nasal Cannula 2.0 12/22/16 03:20 87 Room Air 12/22/16 00:09 Room Air 12/21/16 22:55 37.4 91 24 151/82 (105) 96 Room Air 12/21/16 21:01 91 16 95 Room Air 12/21/16 15:35 Room Air 12/21/16 15:30 73 16 94 Room Air 12/21/16 14:56 37.0 73 19 137/70 (92) 93 Room Air 12/21/16 12:00 37.1 88 14 130/70 (90) 94 Room Air 12/21/16 12:00 37.1 88 14 130/70 (90) 94 Room Air 12/21/16 11:03 98 16 95 Room Air 12/21/16 10:11 120/68 (85) General Appearance: no apparent distress, + pertinent finding (somnolent) Abdomen: non tender, soft Incision(s): clean, dry, no erythema, findings (KENDRICK serous) Laboratory Results: Results Past 24 Hours Test 12/21/16 12:08 12/21/16 16:55 12/21/16 17:10 12/21/16 20:50 Range/Units Bedside Glucose 128 108 117 70-99 mg/dl Urine Color YELLOW Urine Appearance CLEAR CLEAR Urine pH 5.0 4.5-7.5 Urine Specific Hiram 1.018 1.000-1.030 Urine Protein NEG NEG Urine Glucose (UA) NEG NEG Urine Ketones NEG NEG Urine Occult Blood 3+ NEG Urine Nitrite NEG NEG Urine Bilirubin NEG NEG Urine Urobilinogen NEG NEG Urine Leukocyte Esterase SMALL NEG Urine WBC (Auto) 5-10 0-5 /hpf Urine RBC (Auto) >30 0-4 /hpf Urine Hyaline Casts (Auto) 5-10 0-5 /lpf Urine Epithelial Cells (Auto) 5-10 0-5 /lpf Urine Bacteria (Auto) NEG NEG Urine Pathogenic Casts 0 /lpf Test 12/22/16 06:20 12/22/16 06:43 Range/Units Gastric Fluid pH 5-7 Gastric Fluid Occult Blood POS NEG White Blood Count 11.31 4.8-10.8 K/uL Red Blood Count 3.83 4.7-6.1 M/uL Hemoglobin 11.3 14.0-18.0 g/dL Hematocrit 36.4 42-52 % Mean Corpuscular Volume 95.0 80-100 fL Mean Corpuscular Hemoglobin 29.5 25-34 pg Mean Corpuscular Hemoglobin Concent 31.0 32-36 g/dl Platelet Count 310 130-400 K/uL Mean Platelet Volume 9.6 7.4-10.4 fL Neutrophils (%) (Auto) 83.3 % Lymphocytes (%) (Auto) 6.5 % Monocytes (%) (Auto) 9.4 % Eosinophils (%) (Auto) 0.1 % Basophils (%) (Auto) 0.1 % Neutrophils # (Auto) 9.43 1.4-6.5 K/uL Lymphocytes # (Auto) 0.73 1.2-3.4 K/uL Monocytes # (Auto) 1.06 0.11-0.59 K/uL Eosinophils # (Auto) 0.01 0-0.5 K/uL Basophils # (Auto) 0.01 0-0.2 K/uL RDW Standard Deviation 48.8 36.4-46.3 fL RDW Coefficient of Variation 14.1 11.5-14.5 % Immature Granulocyte % (Auto) 0.6 % Immature Granulocyte # (Auto) 0.07 0.00-0.02 K/uL Sodium Level 141 136-145 mmol/L Potassium Level 3.4 3.5-5.1 mmol/L Chloride Level 105 98-107 mmol/L Carbon Dioxide Level 28 21-32 mmol/L Anion Gap 8.0 3-11 mmol/L Blood Urea Nitrogen 12 7-18 mg/dl Creatinine 0.96 0.60-1.40 mg/dl Est Creatinine Clear Calc Drug Dose 82.1 ml/min Estimated GFR () 89.3 Estimated GFR (Non- 77.0 BUN/Creatinine Ratio 12.0 10-20 Random Glucose 138 70-99 mg/dl Calcium Level 8.3 8.5-10.1 mg/dl Magnesium Level 1.9 1.8-2.4 mg/dl Microbiology Results 12/21/16 Urine Culture, Received Pending Assessment & Plan 12/22/16 doing ok but we need to get him moving 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 can we d/c peña awaiting bowel fx 12/21/26 doing well clinically awaiting bowel fx Kendrick serous may increase to full liquids follow wbc 12/19/16 sigmoid volvulus partially decompressed after endoscopy x2 and rectal tube placement high likelihood of recurrence once tube is removed will proceed with sigmoid colectomy this afternoon as above. discussed with pt and his daughter. discussed options/risks. discussed high likelihood of recurrence. discussed surgical risks ( bleeding/ infection/dvt/pe/mi/leaks/injury to other organs such as ureter/bladder/small bowel etc...). answered questions. will proceed with open sigmoidectomy this afternoon. 12/21/26 doing well clinically awaiting bowel fx Kendrick serous may increase to full liquids follow wbc 12/19/16 sigmoid volvulus partially decompressed after endoscopy x2 and rectal tube placement high likelihood of recurrence once tube is removed will proceed with sigmoid colectomy this afternoon as above. discussed with pt and his daughter. discussed options/risks. discussed high likelihood of recurrence. discussed surgical risks ( bleeding/ infection/dvt/pe/mi/leaks/injury to other organs such as ureter/bladder/small bowel etc...). answered questions. will proceed with open sigmoidectomy this afternoon.
[2016-12-22] MEDS ORDERED: ASPIRIN 81 MG ECTAB PO SCH (10:00)
[2016-12-22] MEDS ORDERED: CHOLECALCIFEROL 1000 INTER.UNIT TAB PO SCH (10:00)
[2016-12-22] MEDS ORDERED: CYANOCOBALAMIN 500 MCG TAB (VIT B-12) PO SCH (10:00)
[2016-12-22] MEDS ORDERED: METOPROLOL TARTRATE 25 MG TAB PO SCH (10:00)
[2016-12-22] MEDS ORDERED: MoRPHine SULFATE 2 MG/ML CARP IV PRN (17:00)
[2016-12-22] MEDS ORDERED: TPN/PPN CONSULT PHARMACY PRN (17:15)
[2016-12-22] MEDS ORDERED: ENALAPRILAT IV 0.625 MG in DEXTROSE 5% 25ML 25 ML IV PRN (17:15)
[2016-12-22] MEDS: D5W AND 1/2NSS + 20MEQ KCL 1,000 ML IV SCH (18:16)
--- NOTE | 2016-12-22 18:26 | DIAGNOSTIC IMAGING REPORT ---
KUB HISTORY: vomiting,recent sigmoidectomy COMPARISON: KUB 12/18/2016. FINDINGS: Suspect a trace left pleural effusion. There are left basilar linear densities. There are midline lower abdominal skin melvin and a surgical drain within the deep pelvis. This is new from the prior study. Multiple distended gas-filled loops of large and small bowel are seen throughout the abdomen. The small and large bowel distention has slightly improved. Moderate to severe gaseous distention of the stomach persists. No renal calculi. No ureteral calculi. No pneumoperitoneum or pneumatosis. IMPRESSION: Interval postoperative changes within the abdomen/pelvis. Slight improvement in the distended gas-filled loops of large and small bowel. Moderate to severe gaseous distention of the stomach persists. Electronically signed by: Claude Smith M.D. 12/22/2016 6:25 PM Dictated Date/Time: 12/22/2016 6:23 PM
--- NOTE | 2016-12-22 21:44 | DIAGNOSTIC IMAGING REPORT ---
KUB HISTORY: check NGT placement COMPARISON: KUB 12/22/2016. FINDINGS: Mildly distended gas-filled stomach has improved. Multiple mildly distended gas-filled loops of large bowel are again noted. Nasogastric tube terminates in the body of the stomach. No pneumoperitoneum or pneumatosis. IMPRESSION: Nasogastric tube terminates in the body of stomach. Mildly distended gas-filled stomach has improved. Electronically signed by: Claude Smith M.D. 12/22/2016 9:43 PM Dictated Date/Time: 12/22/2016 9:41 PM
[2016-12-22] MEDS ORDERED: NURSING DECISION MEDICATION ORDER SCH (23:00)
--- NOTE | 2016-12-22 23:38 | Hospitalist Progress Note ---
Hospitalist Progress Note Date of Service Dec 22, 2016. Subjective Pt evaluation today including: conversation w/ patient, conversation w/ family , physical exam, conversation w/ computer systems consultant (Surgery Dr. Taylor) Not voiding much since Amaya out earlier today. Also started having profuse emesis and nausea. Has not passed any flatus. Denies abd pain. N/V not responding to antiemetics. Constitutional: No fever Respiratory: No shortness of breath Cardiovascular: No chest pain Abdomen: + nausea, + vomiting, + constipation Neurologic: + problem reported (daughter reports he is still "not quite himself") Psychiatric: + anxiety All Other Systems: Reviewed and Negative Objective Vital Signs Date Time Temp Pulse Resp B/P (MAP) Pulse Ox O2 Delivery O2 Flow Rate FiO2 12/22/16 15:20 37.4 94 18 167/80 (109) 96 Room Air 12/22/16 15:15 Room Air 12/22/16 15:13 87 18 93 Room Air 12/22/16 11:24 80 20 94 Room Air 12/22/16 10:31 36.7 95 18 92 Room Air 12/22/16 10:05 133/57 (82) 12/22/16 07:30 Room Air 12/22/16 07:19 100 18 95 Room Air 12/22/16 07:04 36.9 100 20 167/74 (105) 95 Nasal Cannula 2.0 12/22/16 06:37 165/75 (105) 12/22/16 04:00 Nasal Cannula 2.0 12/22/16 03:53 170/95 (120) 12/22/16 03:23 37.2 98 22 182/85 (117) 94 Nasal Cannula 2.0 12/22/16 03:20 87 Room Air 12/22/16 00:09 Room Air 12/21/16 22:55 37.4 91 24 151/82 (105) 96 Room Air 12/21/16 21:01 91 16 95 Room Air Physical Exam General Appearance: + mild distress (and actively vomiting), + obese Eyes: normal inspection, sclerae normal ENT: hearing grossly normal Neck: trachea midline Respiratory/Chest: lungs clear, normal breath sounds, no respiratory distress, no accessory muscle use Cardiovascular: regular rate, rhythm, no edema, no gallop, no murmur Abdomen: non tender, + abnormal bowel sounds (hypoactive), + distended ( moderately), + pertinent finding (dressing in place is c/d/i over entire abdomen ) Extremities: no calf tenderness Neurologic/Psychiatric: alert (but looks exhausted), oriented x 3 Skin: normal color, + diaphoresis Laboratory Results Last 24 Hours Test 12/21/16 20:50 12/22/16 06:20 12/22/16 06:43 12/22/16 07:53 Bedside Glucose 117 mg/dl 151 mg/dl Gastric Fluid pH 5-7 Gastric Fluid Occult Blood POS White Blood Count 11.31 K/uL Red Blood Count 3.83 M/uL Hemoglobin 11.3 g/dL Hematocrit 36.4 % Mean Corpuscular Volume 95.0 fL Mean Corpuscular Hemoglobin 29.5 pg Mean Corpuscular Hemoglobin Concent 31.0 g/dl Platelet Count 310 K/uL Mean Platelet Volume 9.6 fL Neutrophils (%) (Auto) 83.3 % Lymphocytes (%) (Auto) 6.5 % Monocytes (%) (Auto) 9.4 % Eosinophils (%) (Auto) 0.1 % Basophils (%) (Auto) 0.1 % Neutrophils # (Auto) 9.43 K/uL Lymphocytes # (Auto) 0.73 K/uL Monocytes # (Auto) 1.06 K/uL Eosinophils # (Auto) 0.01 K/uL Basophils # (Auto) 0.01 K/uL RDW Standard Deviation 48.8 fL RDW Coefficient of Variation 14.1 % Immature Granulocyte % (Auto) 0.6 % Immature Granulocyte # (Auto) 0.07 K/uL Sodium Level 141 mmol/L Potassium Level 3.4 mmol/L Chloride Level 105 mmol/L Carbon Dioxide Level 28 mmol/L Anion Gap 8.0 mmol/L Blood Urea Nitrogen 12 mg/dl Creatinine 0.96 mg/dl Est Creatinine Clear Calc Drug Dose 82.1 ml/min Estimated GFR () 89.3 Estimated GFR (Non- 77.0 BUN/Creatinine Ratio 12.0 Random Glucose 138 mg/dl Calcium Level 8.3 mg/dl Magnesium Level 1.9 mg/dl Test 12/22/16 11:52 Bedside Glucose 125 mg/dl Assessment and Plan This is a 75 yo M with PMHx of T2DM with Diabetic Neuropathy, HTN, Gout, LEN on CPAP, H/o DVT with PE (2013) off anticoagulation, diabetic gastroparesis, anxiety disorder who presents with abdominal pain, bloating, and found to have sigmoid volvulus. Sigmoid Volvulus S/P Decompression 12/15 and 12/16 and S/P Sigmoid Colectomy 12/18: - with post-op ileus worsening today, with N/V and gross distension of abdomen -place NGT to LIS again today -make NPO again - continue Cipro 400 mg IV BID and Flagyl 500 mg IV Q8H on 12/15 to finish a 10 day course - DAY #8 - hold Ranitidine po as is NPO, give IV - General Surgery management appreciated -will likely need TPN-ordered labs and Dietary consultation -will probably place PICC line tomorrow for TPN -antiemetics prn -STOP PROSTHETIC AIDES TEACHER pump today, make morphine 2mg IV q4h prn Low urine output: gave IV lasix x 2 days and helped diurese. Now with N/V and ileus, high output from NGT. UA without overt infection -give IVFs now while NPO -follow UOP and straight cath is PVR>350 mL T2DM with Diabetic Neuropathy: A1c 5.9 (07/12/16) - Pt was recently taken off metformin by his PCP - continue to monitor and coverage if necessary - no coverage required so far Hypokalemia: - Continue to monitor and replete as necessary Parkinson's Disease/Restless Leg Syndrome: STABLE -will have to hold Gabapentin 300 mg QID and Carbidopa/Levodopa 25/100 mg 1.5 tabs po TID while NPO HTN: BPs were elevated today and was started on metoprolol tartrate and back on Dyazide this AM, now NPO with NGT in place - hold Triamterene/HCT 37.5/25 - 1/2 tablet daily -hold metoprolol - Hydralazine PRN -Vasotec IV prn Gout: - Allopurinol 300 mg daily - will hold at this time LEN: - CPAP at night - hold Clonazepam and Sertraline 25 mg daily again while NPO -IV ativan prn to replace clonazepam to prevent withdrawal and for anxiety DVT Prophylaxis: EUSEBIO/SCDs; withhold chemical prophylaxis for surgical intervention Code Status: FULL RESUSCITATION Disposition: given prolonged hospital course, underlying Parkinson's, is going to need SNF vs acute rehab
[2016-12-22] MEDS: RANITIDINE IV 50 MG in DEXTROSE 5% 100ML 100 ML IV SCH (23:50)
[2016-12-22] MEDS: LORAZEPAM INJ 0.5 MG in SYRINGE 0.25 ML IV PRN (23:51)
[2016-12-23] VITALS (7 sets, daily range): BP systolic 139–158; BP diastolic 65–99; PULSE 64–97; TEMP 36.9–37.2; O2SAT 92–96
[2016-12-23] MEDS: METRONIDAZOLE / NSS 500 MG in PREMIXED NSS 100 ML IV SCH ×3 (01:48→19:36)
[2016-12-23] MEDS ORDERED: LIDOCAINE HCL 2% JELLY 30 ML TUBE EXT ONE (03:43)
[2016-12-23] MEDS ORDERED: NURSING DECISION MEDICATION ORDER SCH (03:45)
[2016-12-23] MEDS: INSULIN ASPART 100 UNITS/ML 3 ML PEN SC SCH ×4 (05:54→23:59)
[2016-12-23] MEDS: D5W AND 1/2NSS + 20MEQ KCL 1,000 ML IV SCH (06:03)
[2016-12-23 06:21] LABS: HEMATOCRIT 31.9 % (42-52); MEAN CORPUSCULAR HEMOGLOBIN 31.2 pg (25-34); MEAN CORPUSCULAR HGB CONC 33.5 g/dl (32-36); MEAN PLATELET VOLUME 9.4 fL (7.4-10.4); PLATELET COUNT 275 K/uL (130-400); RED BLOOD COUNT 3.43 M/uL (4.7-6.1); WHITE BLOOD COUNT 11.57 K/uL (4.8-10.8)
[2016-12-23 06:47] LABS: BUN/CREATININE RATIO 10.8 (10-20); CALCIUM 8.3 mg/dl (8.5-10.1); CREATININE 0.93 mg/dl (0.60-1.40); MAGNESIUM 1.8 mg/dl (1.8-2.4); POTASSIUM 3.2 mmol/L (3.5-5.1)
[2016-12-23 07:08] LABS: CHOLESTEROL/HDL RATIO 2.8; PHOSPHORUS 1.5 mg/dl (2.5-4.9)
[2016-12-23] MEDS ORDERED: POTASSIUM PHOS 3 MMOL/1 ML INFUSION IV STA (07:19)
[2016-12-23] MEDS ORDERED: MAGNESIUM SULFATE 1GM / D5W 1 GM in PREMIXED IN D5W 100 ML IV ONE (07:45)
[2016-12-23] MEDS ORDERED: POTASSIUM PHOSPHATE INJ 24 MMOL in SODIUM CHLORIDE 0.9% 500ML 500 ML IV ONE (07:45)
[2016-12-23] MEDS: ALBUT/IPRATROP 3MG/0.5MG NEB 3 ML VIAL INH SCH (07:47)
[2016-12-23] MEDS: RANITIDINE IV 50 MG in DEXTROSE 5% 100ML 100 ML IV SCH (09:30)
[2016-12-23] MEDS: CIPROFLOXACIN / D5W 400 MG in PREMIXED IN D5W 200 ML IV SCH ×2 (10:36→21:00)
--- NOTE | 2016-12-23 12:22 | Hospitalist Progress Note ---
Hospitalist Progress Note Date of Service Dec 23, 2016. (Cristel Garcia PA-C) Subjective Pt evaluation today including: conversation w/ patient, conversation w/ family , physical exam, chart review, lab review, review of studies, review of inpatient medication list Pain: None PO Intake: NPO Voiding: peña catheter in place Patient seen and evaluated. Discussed with patient and daughter at bedside. Daughter had multiple questions and answered them for her. Patient continues to have no complaints. He is more alert compared to previous days but hard to keep on task. When asked if he is passing gas he states yes...reporting 2 with the first one being less and likely referring to BMs. Labs reviewed and electrolytes being repleted. Will have PICC line placed for TPN to start this evening. NGT remains in place with significant output. Appears green/dark no visible blood. Gastric occult was positive. Constitutional: No fever, No chills ENT: + problem reported (rhinorrhea in L nare 2/2 NGT placement) Respiratory: No cough, No shortness of breath Cardiovascular: No chest pain, No palpitations Abdomen: No pain, No nausea, No vomiting, No diarrhea, No constipation Musculoskeletal: No swelling, No calf pain Skin: No rash (Cristel Garcia PA-C) Medications Current Inpatient Medications Medications (Trade) Dose Ordered Sig/Chester Route Start Time Stop Time Status Last Admin Dose Admin Promethazine HCl 12.5 mg/Sodium Chloride 50.5 ml @ 204 mls/hr Q6H PRN IV 12/14/16 16:00 01/13/17 15:59 12/22/16 23:16 204 MLS/HR Ondansetron HCl (Zofran Inj) 4 mg Q6H PRN IV 12/14/16 16:00 01/13/17 15:59 12/22/16 16:28 4 MG Ciprofloxacin/ Dextrose 400 mg/ Prmx 200 ml @ 100 mls/hr Q12H IV 12/15/16 16:00 12/25/16 20:59 12/23/16 10:36 100 MLS/HR Metronidazole 500 mg/Prmx 100 ml @ 100 mls/hr Q8H IV 12/15/16 18:00 12/25/16 17:59 12/23/16 10:42 100 MLS/HR Albuterol/ Ipratropium (Duoneb) 3 ml Q2R PRN INH 12/17/16 08:15 01/16/17 08:14 Hydralazine HCl (HydrALAZINE INJ) 10 mg Q6H PRN IV. 12/18/16 08:30 01/17/17 08:29 12/22/16 16:40 10 MG Naloxone HCl (Narcan Inj) 0.1 mg Q5M PRN IV 12/18/16 16:30 01/17/17 16:29 Gabapentin (Neurontin Cap) 300 mg QID PO 12/20/16 17:00 01/19/17 16:59 Future Hold 12/22/16 13:35 300 MG Ranitidine HCl (zANTac TAB) 150 mg BID PO 12/20/16 21:00 01/19/17 20:59 Future Hold 12/22/16 07:14 150 MG Sertraline HCl (Zoloft Tab) 25 mg DAILY PO 12/21/16 09:00 01/20/17 08:59 Future Hold 12/22/16 07:14 25 MG Carbidopa/Levodopa (Sinemet 25/ 100MG Tab) 1.5 tab TID PO 12/20/16 21:00 01/13/17 20:59 Future Hold 12/22/16 13:35 1.5 TAB Clonazepam (Klonopin Tab) 0.5 mg HS PO 12/20/16 21:00 01/19/17 14:14 Future Hold 12/21/16 19:49 0.5 MG Metoprolol Tartrate (Lopressor Tab) 12.5 mg BID PO 12/22/16 10:00 01/21/17 09:59 Future Hold 12/22/16 09:07 12.5 MG Allopurinol (Zyloprim Tab) 300 mg DAILY PO 12/22/16 10:00 01/21/17 09:59 Future Hold 12/22/16 09:07 300 MG Aspirin (Ecotrin Tab) 81 mg DAILY PO 12/22/16 10:00 01/21/17 09:59 Future Hold 12/22/16 09:06 81 MG Triamterene/HCTZ (Maxzide 37.5/25 Tab) 0.5 tab DAILY PO 12/22/16 10:00 01/21/17 09:59 Future Hold 12/22/16 09:06 0.5 TAB Cholecalciferol (Vitamin D Tab) 2,000 inter.unit DAILY PO 12/22/16 10:00 01/21/17 09:59 Future Hold 12/22/16 09:07 2,000 INTER.UNIT Cyanocobalamin (Vitamin B-12 Tab) 1,000 mcg DAILY PO 12/22/16 10:00 01/21/17 09:59 Future Hold 12/22/16 09:07 1,000 MCG Morphine Sulfate (MoRPHine SULFATE INJ) 2 mg Q4H PRN IV 12/22/16 17:00 01/05/17 16:59 Miscellaneous Information (Pharmacy Tpn/ Ppn Consult Active) 1 ea UD PRN N/A 12/22/16 17:15 01/21/17 17:14 Enalaprilat 0.625 mg/Dextrose 25.5 ml @ 100 mls/hr Q8H PRN IV 12/22/16 17:15 01/21/17 17:14 Potassium Chloride/Dextrose/ Sod Cl 1,000 ml @ 75 mls/hr [id number] IV 12/22/16 18:00 01/21/17 17:14 12/23/16 06:03 75 MLS/HR Insulin Aspart (novoLOG ASPART) SLIDING SCALE PARAMETER Q6 SC 12/23/16 06:00 01/22/17 05:59 Ranitidine HCl 50 mg/Dextrose 102 ml @ 200 mls/hr Q8H IV 12/23/16 00:00 01/22/17 00:00 12/23/16 09:30 200 MLS/HR Lorazepam 0.5 mg/ Syringe 0.5 ml @ 0.5 mls/min Q6H PRN IV 12/22/16 23:45 01/21/17 23:44 12/22/16 23:51 0.5 MLS/MIN (Cristel Garcia, CASEYC) Objective Vital Signs Date Time Temp Pulse Resp B/P (MAP) Pulse Ox O2 Delivery O2 Flow Rate FiO2 12/23/16 07:47 75 18 93 Room Air 12/23/16 07:01 36.9 81 16 143/73 (96) 92 Room Air 12/23/16 03:26 37.0 97 16 153/67 (95) 96 Nasal Cannula 4.0 12/22/16 22:48 36.5 86 16 148/53 (84) 96 Nasal Cannula 4.0 12/22/16 20:40 89 18 92 Room Air 12/22/16 19:25 36.9 91 19 122/61 (81) 92 Room Air 12/22/16 19:16 Room Air 12/22/16 15:20 37.4 94 18 167/80 (109) 96 Room Air 12/22/16 15:15 Room Air 12/22/16 15:13 87 18 93 Room Air (Cristel Garcia PA-C) Physical Exam General Appearance: no apparent distress Eyes: sclerae normal ENT: hearing grossly normal Neck: supple, no JVD, trachea midline Respiratory/Chest: lungs clear, normal breath sounds, no respiratory distress, no accessory muscle use Cardiovascular: regular rate, rhythm, no gallop, no murmur Abdomen: normal bowel sounds, non tender, + distended Extremities: no pedal edema, no calf tenderness Neurologic/Psychiatric: alert Skin: normal color, warm/dry (Cristel Garcia, GUILLAUME-C) Laboratory Results Last 24 Hours Test 12/22/16 17:09 12/22/16 21:09 12/23/16 05:30 12/23/16 05:48 Bedside Glucose 111 mg/dl 132 mg/dl 109 mg/dl White Blood Count 11.57 K/uL Red Blood Count 3.43 M/uL Hemoglobin 10.7 g/dL Hematocrit 31.9 % Mean Corpuscular Volume 93.0 fL Mean Corpuscular Hemoglobin 31.2 pg Mean Corpuscular Hemoglobin Concent 33.5 g/dl RDW Standard Deviation 47.5 fL RDW Coefficient of Variation 13.9 % Platelet Count 275 K/uL Mean Platelet Volume 9.4 fL Sodium Level 140 mmol/L Potassium Level 3.2 mmol/L Chloride Level 107 mmol/L Carbon Dioxide Level 28 mmol/L Anion Gap 5.0 mmol/L Blood Urea Nitrogen 10 mg/dl Creatinine 0.93 mg/dl Est Creatinine Clear Calc Drug Dose 84.8 ml/min Estimated GFR () 92.7 Estimated GFR (Non- 80.0 BUN/Creatinine Ratio 10.8 Random Glucose 113 mg/dl Calcium Level 8.3 mg/dl Phosphorus Level 1.5 mg/dl Magnesium Level 1.8 mg/dl Total Bilirubin 1.0 mg/dl Direct Bilirubin 0.4 mg/dl Aspartate Amino Transf (AST/SGOT) 30 U/L Alanine Aminotransferase (ALT/SGPT) 22 U/L Alkaline Phosphatase 66 U/L Total Protein 5.5 gm/dl Albumin 2.6 gm/dl Prealbumin 11.0 mg/dl Triglycerides Level 74 mg/dl Cholesterol Level 74 mg/dl HDL Cholesterol 26 mg/dl LDL Cholesterol, Calculated 33 mg/dl VLDL Cholesterol, Calculated 15 mg/dl Cholesterol/HDL Ratio 2.8 Lipase 316 U/L (Cristel Garcia, PA-C) Assessment and Plan This is a 75 yo M with PMHx of T2DM with Diabetic Neuropathy, HTN, Gout, LEN on CPAP, 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 Sigmoid Volvulus S/P Decompression 12/15 and 12/16 and S/P Sigmoid Colectomy 12/18 - Now with post-operative ileus with N/V and abdominal distension - NGT with 4 L output since reinsertion - PICC line consent obtained and will begin TPN this evening if electrolyte abnormalities improved - Cipro 400 mg IV BID and Flagyl 500 mg IV Q8H on 12/15 to finish a 10 day course - D/C 12/25 - Ranitidine 50 mg IV Q8H - General Surgery management appreciated - MULTIMEDIA EDITOR pump stopped - morphine 2mg IV q4h prn Low Urine Output: - Lasix x 2 days with diuresis - will use fluids due to ileus and N/V - Follow UOP and straight cath is PVR >350 mL -- UOP - 675 yesterday - urine in Peña tubing looks less dark in comparison T2DM with Diabetic Neuropathy: A1c 5.9 (07/12/16) - Pt was recently taken off metformin by his PCP - continue to monitor and coverage if necessary - no coverage required so far Hypokalemia: - Continue to monitor and replete as necessary Parkinson's Disease/Restless Leg Syndrome: STABLE -will have to hold Gabapentin 300 mg QID and Carbidopa/Levodopa 25/100 mg 1.5 tabs po TID while NPO HTN: - Oral medications with the additional Metoprolol on hold due to NPO - use Hydralazine and Vasotec PRN Gout: - Allopurinol 300 mg daily - will hold at this time LEN: - CPAP at night - hold Clonazepam and Sertraline 25 mg daily again while NPO - IV ativan prn to replace clonazepam to prevent withdrawal and for anxiety DVT Prophylaxis: EUSEBIO/SCDs; withhold chemical prophylaxis for surgical intervention Code Status: FULL RESUSCITATION Disposition: SNF vs Rehab - uncertain on D/C date Continued [facility] stay due to: multiple IV medications needed Discharge planning: jail facility (Cristel Garcia PA-C) Reviewed: Pt Seen/Exam by Me (Carmen Simmons MD) History Physician Inspector And Hand Packager Supervision Note: I interviewed and examined the patient. Discussed with GUILLAUME Garcia and agree with findings and plan as documented in the note. Any exceptions or clarifications are listed here: Much improved today with NGT in, no pain, is moving bowels, did pass moderate sized clot last night as per RN and I d/w Dr. Taylor who said this is expected this time post-op as slough of clot from anastomosis site. Much more alert and clear mentally today since stopping morphine MULTIMEDIA EDITOR Vitals reviewed NAD,sitting in bed RRR no mgr CTAB, breathing unlabored Abd hypoactive BS, soft, NT, dressing over midline incision is c/d/i Peña in place draining dark yellow urine Ext: trace pitting edema bilat legs improved from yesterday, no calf tenderness , 2+ DP pulses Neuro: no further tremors in extremities, is more alert today and oriented x 3, answering all questions appropriately 75 yo male with a h/o PD, DMII, anxiety, HTN, gout, LEN on CPAP, here with sigmoid volvulus requiring sigmoid colectomy. -continue NGT, NPO, and start TPN tonight -is moving bowels now so tomorrow can hopefully clamp NG -holding po meds, giving IV meds for BP and anxiety as needed -watch UOP -replace lytes Documented By: Carmen Simmons (Carmen Simmons MD)
[2016-12-23 14:33] LABS: MAGNESIUM 1.9 mg/dl (1.8-2.4); POTASSIUM 3.5 mmol/L (3.5-5.1)
--- NOTE | 2016-12-23 14:34 | Surgery Progress Note ---
Surgery Progress Note Date of Service Dec 23, 2016. Subjective Post OP Day: 5 pt more awake /alert. looks/feels better since ngt placed. no bm yet. Objective Vital Signs: Date Time Temp Pulse Resp B/P (MAP) Pulse Ox O2 Delivery O2 Flow Rate FiO2 12/23/16 08:10 Room Air 12/23/16 07:47 75 18 93 Room Air 12/23/16 07:01 36.9 81 16 143/73 (96) 92 Room Air 12/23/16 03:26 37.0 97 16 153/67 (95) 96 Nasal Cannula 4.0 12/22/16 22:48 36.5 86 16 148/53 (84) 96 Nasal Cannula 4.0 12/22/16 20:40 89 18 92 Room Air 12/22/16 19:25 36.9 91 19 122/61 (81) 92 Room Air 12/22/16 19:16 Room Air 12/22/16 15:20 37.4 94 18 167/80 (109) 96 Room Air 12/22/16 15:15 Room Air 12/22/16 15:13 87 18 93 Room Air Physical Exam: nasogastric drainage (over 3000 cc's last 24 hours. ) General Appearance: no apparent distress Head: normocephalic, atraumatic Abdomen: non tender, soft, + pertinent finding (mild distension but improved. ) Laboratory Results: Results Past 24 Hours Test 12/22/16 17:09 12/22/16 21:09 12/23/16 05:30 12/23/16 05:48 Range/Units Bedside Glucose 111 132 109 70-99 mg/dl White Blood Count 11.57 4.8-10.8 K/uL Red Blood Count 3.43 4.7-6.1 M/uL Hemoglobin 10.7 14.0-18.0 g/dL Hematocrit 31.9 42-52 % Mean Corpuscular Volume 93.0 80-100 fL Mean Corpuscular Hemoglobin 31.2 25-34 pg Mean Corpuscular Hemoglobin Concent 33.5 32-36 g/dl RDW Standard Deviation 47.5 36.4-46.3 fL RDW Coefficient of Variation 13.9 11.5-14.5 % Platelet Count 275 130-400 K/uL Mean Platelet Volume 9.4 7.4-10.4 fL Sodium Level 140 136-145 mmol/L Potassium Level 3.2 3.5-5.1 mmol/L Chloride Level 107 98-107 mmol/L Carbon Dioxide Level 28 21-32 mmol/L Anion Gap 5.0 3-11 mmol/L Blood Urea Nitrogen 10 7-18 mg/dl Creatinine 0.93 0.60-1.40 mg/dl Est Creatinine Clear Calc Drug Dose 84.8 ml/min Estimated GFR () 92.7 Estimated GFR (Non- 80.0 BUN/Creatinine Ratio 10.8 10-20 Random Glucose 113 70-99 mg/dl Calcium Level 8.3 8.5-10.1 mg/dl Phosphorus Level 1.5 2.5-4.9 mg/dl Magnesium Level 1.8 1.8-2.4 mg/dl Total Bilirubin 1.0 0.2-1 mg/dl Direct Bilirubin 0.4 0-0.2 mg/dl Aspartate Amino Transf (AST/SGOT) 30 15-37 U/L Alanine Aminotransferase (ALT/SGPT) 22 12-78 U/L Alkaline Phosphatase 66 45-117 U/L Total Protein 5.5 6.4-8.2 gm/dl Albumin 2.6 3.4-5.0 gm/dl Prealbumin 11.0 20-40 mg/dl Triglycerides Level 74 0-150 mg/dl Cholesterol Level 74 0-200 mg/dl HDL Cholesterol 26 mg/dl LDL Cholesterol, Calculated 33 mg/dl VLDL Cholesterol, Calculated 15 mg/dl Cholesterol/HDL Ratio 2.8 Lipase 316 73-393 U/L Test 12/23/16 14:01 Range/Units Assessment & Plan 12/23/16 post op ileus. improved clinically since placing ngt. keep for now. 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 can we d/c peña awaiting bowel fx 12/21/26 doing well clinically awaiting bowel fx Yair serous may increase to full liquids follow wbc 12/19/16 sigmoid volvulus partially decompressed after endoscopy x2 and rectal tube placement high likelihood of recurrence once tube is removed will proceed with sigmoid colectomy this afternoon as above. discussed with pt and his daughter. discussed options/risks. discussed high likelihood of recurrence. discussed surgical risks ( bleeding/ infection/dvt/pe/mi/leaks/injury to other organs such as ureter/bladder/small bowel etc...). answered questions. will proceed with open sigmoidectomy this afternoon. 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 can we d/c peña awaiting bowel fx 12/21/26 doing well clinically awaiting bowel fx Yair serous may increase to full liquids follow wbc 12/19/16 sigmoid volvulus partially decompressed after endoscopy x2 and rectal tube placement high likelihood of recurrence once tube is removed will proceed with sigmoid colectomy this afternoon as above. discussed with pt and his daughter. discussed options/risks. discussed high likelihood of recurrence. discussed surgical risks ( bleeding/ infection/dvt/pe/mi/leaks/injury to other organs such as ureter/bladder/small bowel etc...). answered questions. will proceed with open sigmoidectomy this afternoon.
[2016-12-23 14:35] LABS: PHOSPHORUS 2.5 mg/dl (2.5-4.9)
[2016-12-23] MEDS ORDERED: DEXTROSE 10% 1,000 ML IV PRN (16:00)
[2016-12-23] MEDS ORDERED: CUSTOM CENTRAL PN 1 BAG IV SCH (16:00)
[2016-12-24] MEDS: METRONIDAZOLE / NSS 500 MG in PREMIXED NSS 100 ML IV SCH ×3 (02:01→18:14)
[2016-12-24] MEDS: INSULIN ASPART 100 UNITS/ML 3 ML PEN SC SCH ×3 (05:54→18:00)
[2016-12-24 06:37] LABS: HEMATOCRIT 32.6 % (42-52); MEAN CELL VOLUME 92.6 fL (80-100); MEAN CORPUSCULAR HEMOGLOBIN 29.5 pg (25-34); MEAN CORPUSCULAR HGB CONC 31.9 g/dl (32-36); MEAN PLATELET VOLUME 9.5 fL (7.4-10.4); PLATELET COUNT 284 K/uL (130-400); RED BLOOD COUNT 3.52 M/uL (4.7-6.1); WHITE BLOOD COUNT 10.54 K/uL (4.8-10.8)
[2016-12-24 07:11] VITALS: BP 168/70; PULSE 79; TEMP 37.2; O2SAT 97
[2016-12-24 07:13] LABS: CALCIUM 7.6 mg/dl (8.5-10.1); CREATININE 0.83 mg/dl (0.60-1.40); MAGNESIUM 2.1 mg/dl (1.8-2.4); PHOSPHORUS 2.3 mg/dl (2.5-4.9); POTASSIUM 3.3 mmol/L (3.5-5.1)
[2016-12-24] MEDS: CIPROFLOXACIN / D5W 400 MG in PREMIXED IN D5W 200 ML IV SCH ×2 (08:19→19:50)
[2016-12-24] MEDS ORDERED: POTASSIUM PHOS 3 MMOL/1 ML INFUSION IV STA (08:43)
[2016-12-24] MEDS ORDERED: POTASSIUM PHOSPHATE INJ 21 MMOL in SODIUM CHLORIDE 0.9% 500ML 500 ML IV ONE (09:00)
--- NOTE | 2016-12-24 09:19 | Surgery Progress Note ---
Surgery Progress Note Date of Service Dec 24, 2016. Subjective pt had large bm last night. somewhat confused but abdomen looks much better. Objective Vital Signs: Date Time Temp Pulse Resp B/P (MAP) Pulse Ox O2 Delivery O2 Flow Rate FiO2 12/24/16 07:11 37.2 79 16 168/70 (102) 97 2.0 12/23/16 23:57 Nasal Cannula 2.0 12/23/16 23:13 37.2 68 16 139/65 (89) 96 Nasal Cannula 2.0 12/23/16 21:24 37.0 70 24 155/72 (99) 94 Room Air 12/23/16 18:15 Room Air 12/23/16 16:00 Room Air 12/23/16 15:48 37.1 64 16 148/66 (93) 96 Room Air Physical Exam: nasogastric drainage (decreased ( 360 cc)) General Appearance: no apparent distress Abdomen: non tender, soft, + pertinent finding (still some distension but decreased. ) Incision(s): clean, dry, intact, findings (KENDRICK serous fluid draining around it/ clogged. pulled today. ) Laboratory Results: Results Past 24 Hours Test 12/23/16 12:03 12/23/16 14:01 12/23/16 18:00 12/23/16 23:40 Range/Units Bedside Glucose 121 121 126 70-99 mg/dl Potassium Level 3.5 3.5-5.1 mmol/L Phosphorus Level 2.5 2.5-4.9 mg/dl Magnesium Level 1.9 1.8-2.4 mg/dl Test 12/24/16 05:50 12/24/16 06:07 Range/Units Bedside Glucose 121 70-99 mg/dl White Blood Count 10.54 4.8-10.8 K/uL Red Blood Count 3.52 4.7-6.1 M/uL Hemoglobin 10.4 14.0-18.0 g/dL Hematocrit 32.6 42-52 % Mean Corpuscular Volume 92.6 80-100 fL Mean Corpuscular Hemoglobin 29.5 25-34 pg Mean Corpuscular Hemoglobin Concent 31.9 32-36 g/dl RDW Standard Deviation 46.8 36.4-46.3 fL RDW Coefficient of Variation 13.9 11.5-14.5 % Platelet Count 284 130-400 K/uL Mean Platelet Volume 9.5 7.4-10.4 fL Sodium Level 142 136-145 mmol/L Potassium Level 3.3 3.5-5.1 mmol/L Chloride Level 108 98-107 mmol/L Carbon Dioxide Level 28 21-32 mmol/L Anion Gap 6.0 3-11 mmol/L Blood Urea Nitrogen 10 7-18 mg/dl Creatinine 0.83 0.60-1.40 mg/dl Est Creatinine Clear Calc Drug Dose 93.8 ml/min Estimated GFR () 99.8 Estimated GFR (Non- 86.1 BUN/Creatinine Ratio 12.0 10-20 Random Glucose 123 70-99 mg/dl Calcium Level 7.6 8.5-10.1 mg/dl Phosphorus Level 2.3 2.5-4.9 mg/dl Magnesium Level 2.1 1.8-2.4 mg/dl Assessment & Plan 12/24/16 will obtain ngt clamp trial, if ok will pull ngt and obtain bedside swallow test /start liquids cont TPN for now H/H stable PT/OT wound looks good. KENDRICK pulled today. 12/23/16 post op ileus. improved clinically since placing ngt. keep for now. 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 can we d/c peña awaiting bowel fx 12/21/26 doing well clinically awaiting bowel fx Kendrick serous may increase to full liquids follow wbc 12/19/16 sigmoid volvulus partially decompressed after endoscopy x2 and rectal tube placement high likelihood of recurrence once tube is removed will proceed with sigmoid colectomy this afternoon as above. discussed with pt and his daughter. discussed options/risks. discussed high likelihood of recurrence. discussed surgical risks ( bleeding/ infection/dvt/pe/mi/leaks/injury to other organs such as ureter/bladder/small bowel etc...). answered questions. will proceed with open sigmoidectomy this afternoon. 12/23/16 post op ileus. improved clinically since placing ngt. keep for now. 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 can we d/c peña awaiting bowel fx 12/21/26 doing well clinically awaiting bowel fx Kendrick serous may increase to full liquids follow wbc 12/19/16 sigmoid volvulus partially decompressed after endoscopy x2 and rectal tube placement high likelihood of recurrence once tube is removed will proceed with sigmoid colectomy this afternoon as above. discussed with pt and his daughter. discussed options/risks. discussed high likelihood of recurrence. discussed surgical risks ( bleeding/ infection/dvt/pe/mi/leaks/injury to other organs such as ureter/bladder/small bowel etc...). answered questions. will proceed with open sigmoidectomy this afternoon.
[2016-12-24 11:47] VITALS: BP 150/72; PULSE 78; TEMP 36.9; O2SAT 93
[2016-12-24] MEDS ORDERED: NURSING VERBAL MED ORDER ONE ×2 (12:00→13:30)
[2016-12-24] MEDS ORDERED: LORAZEPAM INJ 0.5 MG in SYRINGE 0.75 ML IV ONE (12:15)
[2016-12-24] MEDS ORDERED: HALOPERIDOL LACTATE 5 MG/ML 1 ML VIAL IM ONE (13:30)
[2016-12-24] MEDS ORDERED: HALOPERIDOL LACTATE 5 MG/ML 1 ML VIAL IM PRN (13:30)
--- NOTE | 2016-12-24 13:55 | Hospitalist Progress Note ---
Hospitalist Progress Note Date of Service Dec 24, 2016. (Cristel Garcia PA-C) Subjective Pt evaluation today including: conversation w/ patient, conversation w/ family , physical exam, chart review, lab review, review of studies, review of inpatient medication list Pain: None PO Intake: NPO Voiding: peña catheter in place Patient seen and evaluated. Multiple visits to patient today. On initial visit, daughter was at bedside and patient was intermittently confused with mild tremors. He followed commands and answer questions appropriately but kept tugging at his sheets and socks stating they were "too long" to go home like that. NGT with less output and abdominal distention markedly improved. Patient is having bowel movements but states he is not passing gas. On second visit, son is at bedside and notified nursing staff the patient appeared to be convulsing. Nursing staff noted an irregular heart rate and stat EKG was ordered. Upon arriving to the room, patient was being ambulated to the bed with max assist of 4 people. Patient was unable to contribute by any means for transfer. Patient again verbalizes no complaints including chest pain, shortness of breath , abdominal pain. Patient is noted to be tremorous in both upper extremities and lower extremities. EKG obtained with sinus rhythm and occasional PACs. No evidence of ischemic changes noted and compared to previous EKG from admission without drastic changes. Patient continued to have significant tremors is more lethargic and more confused during this visit. Patient appears to be reaching for objects in the air and mumbling. Nursing staff reports patient did not sleep through the night. Medications reviewed and no Ativan was given recently. Suspect this is likely withdraw from inability to provide by mouth medications including Sinemet, Zoloft, clonazepam. Constitutional: No fever, No chills Respiratory: No cough, No shortness of breath Cardiovascular: No chest pain, No palpitations Abdomen: No pain, No nausea, No vomiting Musculoskeletal: + problem reported (tremors) Male : No dysuria (Cristel Garcia PA-C) Medications Current Inpatient Medications Medications (Trade) Dose Ordered Sig/[place]ster Route Start Time Stop Time Status Last Admin Dose Admin Promethazine HCl 12.5 mg/Sodium Chloride 50.5 ml @ 204 mls/hr Q6H PRN IV 12/14/16 16:00 01/13/17 15:59 12/22/16 23:16 204 MLS/HR Ondansetron HCl (Zofran Inj) 4 mg Q6H PRN IV 12/14/16 16:00 01/13/17 15:59 12/22/16 16:28 4 MG Ciprofloxacin/ Dextrose 400 mg/ Prmx 200 ml @ 100 mls/hr Q12H IV 12/15/16 16:00 12/25/16 20:59 12/24/16 08:19 100 MLS/HR Metronidazole 500 mg/Prmx 100 ml @ 100 mls/hr Q8H IV 12/15/16 18:00 12/25/16 17:59 12/24/16 09:38 100 MLS/HR Albuterol/ Ipratropium (Duoneb) 3 ml Q2R PRN INH 12/17/16 08:15 01/16/17 08:14 Hydralazine HCl (HydrALAZINE INJ) 10 mg Q6H PRN IV. 12/18/16 08:30 01/17/17 08:29 12/22/16 16:40 10 MG Naloxone HCl (Narcan Inj) 0.1 mg Q5M PRN IV 12/18/16 16:30 01/17/17 16:29 Gabapentin (Neurontin Cap) 300 mg QID PO 12/20/16 17:00 01/19/17 16:59 Future Hold 12/22/16 13:35 300 MG Ranitidine HCl (zANTac TAB) 150 mg BID PO 12/20/16 21:00 01/19/17 20:59 Future Hold 12/22/16 07:14 150 MG Sertraline HCl (Zoloft Tab) 25 mg DAILY PO 12/21/16 09:00 01/20/17 08:59 Future Hold 12/22/16 07:14 25 MG Carbidopa/Levodopa (Sinemet 25/ 100MG Tab) 1.5 tab TID PO 12/20/16 21:00 01/13/17 20:59 Future Hold 12/22/16 13:35 1.5 TAB Clonazepam (Klonopin Tab) 0.5 mg HS PO 12/20/16 21:00 01/19/17 14:14 Future Hold 12/21/16 19:49 0.5 MG Metoprolol Tartrate (Lopressor Tab) 12.5 mg BID PO 12/22/16 10:00 01/21/17 09:59 Future Hold 12/22/16 09:07 12.5 MG Allopurinol (Zyloprim Tab) 300 mg DAILY PO 12/22/16 10:00 01/21/17 09:59 Future Hold 12/22/16 09:07 300 MG Aspirin (Ecotrin Tab) 81 mg DAILY PO 12/22/16 10:00 01/21/17 09:59 Future Hold 12/22/16 09:06 81 MG Triamterene/HCTZ (Maxzide 37.5/25 Tab) 0.5 tab DAILY PO 12/22/16 10:00 01/21/17 09:59 Future Hold 12/22/16 09:06 0.5 TAB Cholecalciferol (Vitamin D Tab) 2,000 inter.unit DAILY PO 12/22/16 10:00 01/21/17 09:59 Future Hold 12/22/16 09:07 2,000 INTER.UNIT Cyanocobalamin (Vitamin B-12 Tab) 1,000 mcg DAILY PO 12/22/16 10:00 01/21/17 09:59 Future Hold 12/22/16 09:07 1,000 MCG Morphine Sulfate (MoRPHine SULFATE INJ) 2 mg Q4H PRN IV 12/22/16 17:00 01/05/17 16:59 Miscellaneous Information (Pharmacy Tpn/ Ppn Consult Active) 1 ea UD PRN N/A 12/22/16 17:15 01/21/17 17:14 Enalaprilat 0.625 mg/Dextrose 25.5 ml @ 100 mls/hr Q8H PRN IV 12/22/16 17:15 01/21/17 17:14 Insulin Aspart (novoLOG ASPART) SLIDING SCALE PARAMETER Q6 SC 12/23/16 06:00 01/22/17 05:59 Lorazepam 0.5 mg/ Syringe 0.5 ml @ 0.5 mls/min Q6H PRN IV 12/22/16 23:45 01/21/17 23:44 12/22/16 23:51 0.5 MLS/MIN Nutrition (Parenteral) 0 ml @ 0 mls/hr TODAY@1600 IV 12/23/16 16:00 12/24/16 15:59 12/23/16 16:34 63 MLS/HR Dextrose 1,000 ml @ 0 mls/hr Q0M PRN IV 12/23/16 16:00 01/22/17 15:59 Heparin Sodium (Porcine) (Heparin 10 Unit/ ml 5 ml Flush) 5 ml PRN PRN FLUSH 12/24/16 02:15 01/23/17 02:14 12/24/16 06:08 10 ML Nutrition (Parenteral) 0 ml @ 0 mls/hr TODAY@1600 IV 12/24/16 16:00 12/25/16 15:59 Haloperidol Lactate (Haldol Inj) 5 mg Q24H PRN IM 12/24/16 13:30 01/23/17 13:29 UNV (Cristel Garcia PA-C) Objective Vital Signs Date Time Temp Pulse Resp B/P (MAP) Pulse Ox O2 Delivery O2 Flow Rate FiO2 12/24/16 11:47 36.9 78 16 150/72 (98) 93 2.0 12/24/16 07:11 37.2 79 16 168/70 (102) 97 2.0 12/23/16 23:57 Nasal Cannula 2.0 12/23/16 23:13 37.2 68 16 139/65 (89) 96 Nasal Cannula 2.0 12/23/16 21:24 37.0 70 24 155/72 (99) 94 Room Air 12/23/16 18:15 Room Air 12/23/16 16:00 Room Air 12/23/16 15:48 37.1 64 16 148/66 (93) 96 Room Air (Cristel Garcia PA-C) Physical Exam General Appearance: + moderate distress (restless) Eyes: sclerae normal ENT: hearing grossly normal Neck: supple, no JVD, trachea midline Respiratory/Chest: lungs clear, normal breath sounds, no respiratory distress, no accessory muscle use Cardiovascular: regular rate, rhythm, no gallop, no murmur Abdomen: non tender, soft, + abnormal bowel sounds (hypoactive) Neurologic/Psychiatric: + pertinent finding (initially alert and oriented with intermittent confusion; currently more lethargic and confused) Skin: normal color, warm/dry (Cristel Garcia PA-C) Laboratory Results Last 24 Hours Test 12/23/16 14:01 12/23/16 18:00 12/23/16 23:40 8/6/17 05:50 Potassium Level 3.5 mmol/L Phosphorus Level 2.5 mg/dl Magnesium Level 1.9 mg/dl Bedside Glucose 121 mg/dl 126 mg/dl 121 mg/dl Test 12/24/16 06:07 12/24/16 11:53 White Blood Count 10.54 K/uL Red Blood Count 3.52 M/uL Hemoglobin 10.4 g/dL Hematocrit 32.6 % Mean Corpuscular Volume 92.6 fL Mean Corpuscular Hemoglobin 29.5 pg Mean Corpuscular Hemoglobin Concent 31.9 g/dl RDW Standard Deviation 46.8 fL RDW Coefficient of Variation 13.9 % Platelet Count 284 K/uL Mean Platelet Volume 9.5 fL Sodium Level 142 mmol/L Potassium Level 3.3 mmol/L Chloride Level 108 mmol/L Carbon Dioxide Level 28 mmol/L Anion Gap 6.0 mmol/L Blood Urea Nitrogen 10 mg/dl Creatinine 0.83 mg/dl Est Creatinine Clear Calc Drug Dose 93.8 ml/min Estimated GFR () 99.8 Estimated GFR (Non- 86.1 BUN/Creatinine Ratio 12.0 Random Glucose 123 mg/dl Calcium Level 7.6 mg/dl Phosphorus Level 2.3 mg/dl Magnesium Level 2.1 mg/dl Bedside Glucose 106 mg/dl (Cristel Garcia, PA-C) Assessment and Plan This is a 75 yo M with PMHx of T2DM with Diabetic Neuropathy, HTN, Gout, LEN on CPAP, 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 Sigmoid Volvulus S/P Decompression 12/15 and 12/16 and S/P Sigmoid Colectomy 12/18 - Resolving post-operative ileus - less distension and less NGT output - NGT clamped and possible removal pending residuals - PICC line placed with TPN supplied - Cipro 400 mg IV BID and Flagyl 500 mg IV Q8H on 12/15 to finish a 10 day course - D/C 12/25 - Ranitidine 50 mg IV Q8H - General Surgery management appreciated - plan for possible NGT removal - COTTON GINNER pump stopped - morphine 2mg IV q4h PRN Encephalopathy - Delirium vs Medication Withdrawal: WAX AND WANES - Suspect withdrawal symptoms as unable to give Sinemet, Zoloft, and Clonazepam - patient without Ativan since 12/22 - Will reinstitute medications when able to help with symptoms - EKG obtained - NSR with PACs without ischemic changes - Haldol x 1 dose given Low Urine Output: - Lasix x 2 days with diuresis but improved with reinstitution of fluids - now currently D/Cd - Follow UOP and straight cath is PVR >350 mL -- UOP - 1200 so far today - urine in Peña tubing looks less dark in comparison T2DM with Diabetic Neuropathy: A1c 5.9 (07/12/16) - Pt was recently taken off metformin by his PCP - continue to monitor and coverage if necessary - no coverage required so far Hypokalemia and Hypophosphatemia: - Continue to monitor and replete as necessary Parkinson's Disease/Restless Leg Syndrome: WORSENING - Held Gabapentin 300 mg QID and Carbidopa/Levodopa 25/100 mg 1.5 tabs po TID while NPO HTN: - Oral medications with the additional Metoprolol on hold due to NPO - use Hydralazine and Vasotec PRN Gout: - Allopurinol 300 mg daily - will hold at this time LEN: - CPAP at night - hold Clonazepam and Sertraline 25 mg daily again while NPO - IV Ativan PRN to replace clonazepam to prevent withdrawal and for anxiety DVT Prophylaxis: EUSEBIO/SCDs; withhold chemical prophylaxis for surgical intervention Code Status: FULL RESUSCITATION Disposition: SNF vs Rehab - uncertain on D/C date - Discussed with daughter today who is still adamant of patient returning home - was previously at [facility] -- Patient was max assist of 4 staff members to only stand and pivot from chair to bed - at this time he is unsafe to return home not only for himself but family as well Continued [facility] stay due to: multiple IV medications needed Discharge planning: uncertain (SNF vs Rehab) (Cristel Garcia, CASEYC) Reviewed: Pt Seen/Exam by Me (Carmen Simmons MD) History Physician Equipment Services Associate Supervision Note: I interviewed and examined the patient. Discussed with GUILLAUME Garcia and agree with findings and plan as documented in the note. Any exceptions or clarifications are listed here: Had acute delirium today, shaking more, likely from withdrawal from SInemet, clonazepam, could be from residual pain meds. Gave ativan and had no improvement. Was quite agitated, hallucinating, grabbing at things not there, pulling and tugging on lines. Given IM Haldol and had significant improvement in symptoms/. Vitals reviewed NAD,lying in bed and restless, agitated, grabbing his son's arm and pulling it hard towards himself RRR no mgr CTAB, breathing unlabored Abd +BS, soft, NT, dressing over midline incision is c/d/i Peña in place draining dark yellow urine Ext: no edema,no calf tenderness, 2+ DP pulses Neuro: oriented to place and person, otherwise keeps eyes closed, does follow some commands briefly, moving all extremities, no facial droop 75 yo male with a h/o PD, DMII, anxiety, HTN, gout, LEN on CPAP, here with sigmoid volvulus requiring sigmoid colectomy, and prolonged course with ileus and now acute delirium -continue TPN but could possibly take a diet today as NGT pulled -restart homee po meds -watch UOP -replace lytes -Haldol prn Documented By: Carmen Simmons (Carmen Simmons MD)
[2016-12-24] MEDS: CARBIDOPA/LEVODOPA 25/100MG TAB PO SCH ×2 (14:00→20:53)
--- NOTE | 2016-12-24 15:30 | Pharmacy Progress Note ---
Parenteral Nutrition Consult Date of Service Dec 24, 2016. Scope Pharmacy has been consulted to manage parenteral nutrition orders and order appropriate labs. As part of the Nutrition Support Team guidelines, pharmacy will work in conjunction with dietary when determining the patients caloric needs. Subjective The patient is a 75 year old male admitted on Dec 14, 2016 at 15:52 for Volvulus. Patient is to receive parenteral nutrition for post op ileus Objective Height (Feet): 6 Height (Inches): 0.00 Weight (Kilograms): 99.200 Diet: NPO Vascular Access: picc Intake & Output (Last 72 Hr): 12/23/16 12/24/16 12/25/16 08:00 08:00 08:00 Intake Total 2360 ml 4452 ml 1425 ml Output Total 5320 ml 4125 ml 750 ml Balance -2960 ml 327 ml 675 ml Laboratory Data (Last 24 Hr): Test 12/24/16 06:07 Blood Urea Nitrogen 10 mg/dl (7-18) Calcium Level 7.6 mg/dl (8.5-10.1) Carbon Dioxide Level 28 mmol/L (21-32) Chloride Level 108 mmol/L (98-107) Creatinine 0.83 mg/dl (0.60-1.40) Magnesium Level 2.1 mg/dl (1.8-2.4) Phosphorus Level 2.3 mg/dl (2.5-4.9) Potassium Level 3.3 mmol/L (3.5-5.1) Random Glucose 123 mg/dl (70-99) Sodium Level 142 mmol/L (136-145) Nutrition Assessment Please refer to the Notes section of the EMR for the most recent location worker note. Plan Today is day #2 of TPN management. Max total fluid volume per MD ~2000ml, min total fluid volume ~1500 ml/day. TPN changed to volume based today to maintain ~ 1500 ml total fluid. Goal Macronutrients: Amino acids: 125 g/day Dextrose: 250 g/day Lipids: 50 g Total kcal goal: ~1850 kcal/day Macronutrients 12/24 Amino acids 100 grams/day - decreased travasol today due to increasing Cl Dextrose 175 grams/day Lipids 0 grams/day Micronutrients Sodium acetate 15 mEq Potassium phosphate 30 mMol - both k and phos low today, 21 mmol given this am will increase to 30 mM in tpn Potassium acetate 15 mEq Magnesium sulfate 16.24 mEq Calcium gluconate 4.65 mEq Multivitamins 10 mL Trace Elements 10 mL Additional additives: pepcid add to tpn (pt was on zantac) Total volume 1500 mL to be infused over 24 hrs will provide 995 kcal/day Labs to be ordered per PN order protocol Pharmacy will follow and adjust parenteral nutrition orders on a daily basis. Thank you.
[2016-12-24 15:34] VITALS: BP 128/82; PULSE 79; TEMP 37; O2SAT 95
[2016-12-24] MEDS ORDERED: CUSTOM CENTRAL PN 1 BAG IV SCH (16:00)
[2016-12-24] MEDS: LORAZEPAM INJ 0.5 MG in SYRINGE 0.25 ML IV PRN (20:08)
[2016-12-24] MEDS: CLONAZEPAM 0.5 MG TAB PO SCH (20:53)
[2016-12-24 23:44] VITALS: BP 144/60; PULSE 60; TEMP 37.2; O2SAT 96
[2016-12-25] MEDS: METRONIDAZOLE / NSS 500 MG in PREMIXED NSS 100 ML IV SCH ×2 (01:29→11:07)
[2016-12-25] MEDS: LORAZEPAM INJ 0.5 MG in SYRINGE 0.25 ML IV PRN (02:06)
[2016-12-25] MEDS: INSULIN ASPART 100 UNITS/ML 3 ML PEN SC SCH ×5 (06:00→21:00)
[2016-12-25 06:32] LABS: HEMATOCRIT 31.6 % (42-52); MEAN CELL VOLUME 93.2 fL (80-100); MEAN CORPUSCULAR HEMOGLOBIN 30.1 pg (25-34); MEAN CORPUSCULAR HGB CONC 32.3 g/dl (32-36); MEAN PLATELET VOLUME 9.6 fL (7.4-10.4); PLATELET COUNT 265 K/uL (130-400); RED BLOOD COUNT 3.39 M/uL (4.7-6.1); WHITE BLOOD COUNT 10.69 K/uL (4.8-10.8)
[2016-12-25 07:07] LABS: BUN/CREATININE RATIO 19.6 (10-20); CALCIUM 7.8 mg/dl (8.5-10.1); CREATININE 0.81 mg/dl (0.60-1.40); MAGNESIUM 2.2 mg/dl (1.8-2.4); POTASSIUM 3.5 mmol/L (3.5-5.1)
[2016-12-25 07:08] LABS: PHOSPHORUS 2.7 mg/dl (2.5-4.9)
[2016-12-25 07:55] VITALS: BP 161/71; PULSE 63; TEMP 36.5; O2SAT 95
[2016-12-25] MEDS: CIPROFLOXACIN / D5W 400 MG in PREMIXED IN D5W 200 ML IV SCH ×2 (08:40→20:41)
--- NOTE | 2016-12-25 08:44 | Surgery Progress Note ---
Surgery Progress Note Date of Service Dec 25, 2016. Subjective pt was given some ativan last night and since has had some confusion per nursing. currently he is resting comfortably. denies pain. Objective Vital Signs: Date Time Temp Pulse Resp B/P (MAP) Pulse Ox O2 Delivery O2 Flow Rate FiO2 12/25/16 07:55 36.5 63 16 161/71 (101) 95 Room Air 12/24/16 23:44 37.2 60 18 144/60 (88) 96 Room Air 12/24/16 19:20 Room Air 12/24/16 16:00 Room Air 12/24/16 15:34 37.0 79 18 128/82 (97) 95 Room Air 12/24/16 11:47 36.9 78 16 150/72 (98) 93 2.0 General Appearance: no apparent distress Respiratory/Chest: no respiratory distress, no accessory muscle use Abdomen: non tender, soft, + pertinent finding (still slightly distended but much improved. ) Incision(s): clean, dry, intact, no erythema Laboratory Results: Results Past 24 Hours Test 12/24/16 11:53 12/24/16 17:56 12/24/16 23:42 12/25/16 05:58 Range/Units Bedside Glucose 106 124 106 112 70-99 mg/dl Test 12/25/16 06:03 Range/Units White Blood Count 10.69 4.8-10.8 K/uL Red Blood Count 3.39 4.7-6.1 M/uL Hemoglobin 10.2 14.0-18.0 g/dL Hematocrit 31.6 42-52 % Mean Corpuscular Volume 93.2 80-100 fL Mean Corpuscular Hemoglobin 30.1 25-34 pg Mean Corpuscular Hemoglobin Concent 32.3 32-36 g/dl RDW Standard Deviation 47.4 36.4-46.3 fL RDW Coefficient of Variation 14.0 11.5-14.5 % Platelet Count 265 130-400 K/uL Mean Platelet Volume 9.6 7.4-10.4 fL Sodium Level 141 136-145 mmol/L Potassium Level 3.5 3.5-5.1 mmol/L Chloride Level 109 98-107 mmol/L Carbon Dioxide Level 26 21-32 mmol/L Anion Gap 6.0 3-11 mmol/L Blood Urea Nitrogen 16 7-18 mg/dl Creatinine 0.81 0.60-1.40 mg/dl Est Creatinine Clear Calc Drug Dose 96.1 ml/min Estimated GFR () 100.8 Estimated GFR (Non- 86.9 BUN/Creatinine Ratio 19.6 10-20 Random Glucose 111 70-99 mg/dl Calcium Level 7.8 8.5-10.1 mg/dl Phosphorus Level 2.7 2.5-4.9 mg/dl Magnesium Level 2.2 1.8-2.4 mg/dl Assessment & Plan 12/25/16 no surgical issue currently awaiting speech path to evaluate for diet which we can then institute continue tpn until PO intake adequate 12/24/16 will obtain ngt clamp trial, if ok will pull ngt and obtain bedside swallow test /start liquids cont TPN for now H/H stable PT/OT wound looks good. KENDRICK pulled today. 12/23/16 post op ileus. improved clinically since placing ngt. keep for now. 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 can we d/c peña awaiting bowel fx 12/21/26 doing well clinically awaiting bowel fx Kendrick serous may increase to full liquids follow wbc 12/19/16 sigmoid volvulus partially decompressed after endoscopy x2 and rectal tube placement high likelihood of recurrence once tube is removed will proceed with sigmoid colectomy this afternoon as above. discussed with pt and his daughter. discussed options/risks. discussed high likelihood of recurrence. discussed surgical risks ( bleeding/ infection/dvt/pe/mi/leaks/injury to other organs such as ureter/bladder/small bowel etc...). answered questions. will proceed with open sigmoidectomy this afternoon. 12/24/16 will obtain ngt clamp trial, if ok will pull ngt and obtain bedside swallow test /start liquids cont TPN for now H/H stable PT/OT wound looks good. KENDRICK pulled today. 12/23/16 post op ileus. improved clinically since placing ngt. keep for now. 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 can we d/c peña awaiting bowel fx 12/21/26 doing well clinically awaiting bowel fx Kendrick serous may increase to full liquids follow wbc 12/19/16 sigmoid volvulus partially decompressed after endoscopy x2 and rectal tube placement high likelihood of recurrence once tube is removed will proceed with sigmoid colectomy this afternoon as above. discussed with pt and his daughter. discussed options/risks. discussed high likelihood of recurrence. discussed surgical risks ( bleeding/ infection/dvt/pe/mi/leaks/injury to other organs such as ureter/bladder/small bowel etc...). answered questions. will proceed with open sigmoidectomy this afternoon.
[2016-12-25 10:00] VITALS: BP 143/67
[2016-12-25] MEDS: CARBIDOPA/LEVODOPA 25/100MG TAB PO SCH ×3 (10:28→20:41)
[2016-12-25] MEDS: SERTRALINE HCL 50 MG TAB PO SCH (10:28)
[2016-12-25] MEDS: GABAPENTIN 300 MG CAP PO SCH ×5 (10:37→20:41)
--- NOTE | 2016-12-25 14:07 | Hospitalist Progress Note ---
Hospitalist Progress Note Date of Service Dec 25, 2016. Subjective Pt evaluation today including: conversation w/ patient, conversation w/ family , physical exam, chart review, lab review, review of studies, review of inpatient medication list Pain: None PO Intake: NPO except Meds Voiding: peña catheter in place Patient seen and evaluated. Mentation and tremors are much improved compared to yesterday. He has minimal to no tremors today and is answering appropriately. Having a lot of gas today including flatus and burping. Abdomen remains non-distended and as usual has no complaints. Surgical incision is well-approximated with melvin in place; no surround signs of infection. Did restart his po meds that do not come in IV format. Hopefully diet will be advanced today. Discussed with the daughter about how weak he was yesterday and the need for 4 nurses to move him from chair to bed. She continues to insist that he return home with [facility] and reports there will be 24/7 care by family including a granddaughter which daughter reports has special needs but is very helpful in the care of her grandfather. Did express concern for safety, not only for patient but family if he requires that much assistance. Daughter stated that "I think he will surprise you" as she states he is determined to return home and do what it takes PT/OT lora to make that happen. Will await new PT/OT evaluations as interventions have been limited due to medical status. Constitutional: No fever, No chills Respiratory: No shortness of breath Medications Current Inpatient Medications Medications (Trade) Dose Ordered Sig/Chester Route Start Time Stop Time Status Last Admin Dose Admin Promethazine HCl 12.5 mg/Sodium Chloride 50.5 ml @ 204 mls/hr Q6H PRN IV 12/14/16 16:00 01/13/17 15:59 12/22/16 23:16 204 MLS/HR Ondansetron HCl (Zofran Inj) 4 mg Q6H PRN IV 12/14/16 16:00 01/13/17 15:59 12/22/16 16:28 4 MG Ciprofloxacin/ Dextrose 400 mg/ Prmx 200 ml @ 100 mls/hr Q12H IV 12/15/16 16:00 12/25/16 20:59 12/25/16 08:40 100 MLS/HR Metronidazole 500 mg/Prmx 100 ml @ 100 mls/hr Q8H IV 12/15/16 18:00 12/25/16 17:59 12/25/16 11:07 100 MLS/HR Albuterol/ Ipratropium (Duoneb) 3 ml Q2R PRN INH 12/17/16 08:15 01/16/17 08:14 Hydralazine HCl (HydrALAZINE INJ) 10 mg Q6H PRN IV. 12/18/16 08:30 01/17/17 08:29 12/22/16 16:40 10 MG Naloxone HCl (Narcan Inj) 0.1 mg Q5M PRN IV 12/18/16 16:30 01/17/17 16:29 Gabapentin (Neurontin Cap) 300 mg QID PO 12/20/16 17:00 01/19/17 16:59 Future hold 12/25/16 13:09 300 MG Ranitidine HCl (zANTac TAB) 150 mg BID PO 12/20/16 21:00 01/19/17 20:59 Future Hold 12/22/16 07:14 150 MG Metoprolol Tartrate (Lopressor Tab) 12.5 mg BID PO 12/22/16 10:00 01/21/17 09:59 Future Hold 12/22/16 09:07 12.5 MG Allopurinol (Zyloprim Tab) 300 mg DAILY PO 12/22/16 10:00 01/21/17 09:59 Future Hold 12/22/16 09:07 300 MG Aspirin (Ecotrin Tab) 81 mg DAILY PO 12/22/16 10:00 01/21/17 09:59 Future Hold 12/22/16 09:06 81 MG Triamterene/HCTZ (Maxzide 37.5/25 Tab) 0.5 tab DAILY PO 12/22/16 10:00 01/21/17 09:59 Future Hold 12/22/16 09:06 0.5 TAB Cholecalciferol (Vitamin D Tab) 2,000 inter.unit DAILY PO 12/22/16 10:00 01/21/17 09:59 Future Hold 12/22/16 09:07 2,000 INTER.UNIT Cyanocobalamin (Vitamin B-12 Tab) 1,000 mcg DAILY PO 12/22/16 10:00 01/21/17 09:59 Future Hold 12/22/16 09:07 1,000 MCG Morphine Sulfate (MoRPHine SULFATE INJ) 2 mg Q4H PRN IV 12/22/16 17:00 01/05/17 16:59 Miscellaneous Information (Pharmacy Tpn/ Ppn Consult Active) 1 ea UD PRN N/A 12/22/16 17:15 01/21/17 17:14 Enalaprilat 0.625 mg/Dextrose 25.5 ml @ 100 mls/hr Q8H PRN IV 12/22/16 17:15 01/21/17 17:14 Insulin Aspart (novoLOG ASPART) SLIDING SCALE PARAMETER Q6 SC 12/23/16 06:00 01/22/17 05:59 Lorazepam 0.5 mg/ Syringe 0.5 ml @ 0.5 mls/min Q6H PRN IV 12/22/16 23:45 01/21/17 23:44 12/25/16 02:06 0.5 MLS/MIN Dextrose 1,000 ml @ 0 mls/hr Q0M PRN IV 12/23/16 16:00 01/22/17 15:59 Heparin Sodium (Porcine) (Heparin 10 Unit/ ml 5 ml Flush) 5 ml PRN PRN FLUSH 12/24/16 02:15 01/23/17 02:14 12/25/16 06:00 10 ML Nutrition (Parenteral) 0 ml @ 0 mls/hr TODAY@1600 IV 12/24/16 16:00 12/25/16 15:59 12/24/16 16:28 0 MLS/HR Haloperidol Lactate (Haldol Inj) 5 mg Q24H PRN IM 12/24/16 13:30 01/23/17 13:29 Clonazepam (Klonopin Tab) 0.5 mg HS PO 12/24/16 21:00 01/23/17 20:59 Carbidopa/Levodopa (Sinemet 25/ 100MG Tab) 1.5 tab TID PO 12/24/16 14:00 01/23/17 13:59 12/25/16 14:14 1.5 TAB Sertraline HCl (Zoloft Tab) 25 mg QAM PO 12/25/16 09:00 01/24/17 08:59 12/25/16 10:28 25 MG Nutrition (Parenteral) 0 ml @ 0 mls/hr TODAY@1600 IV 12/25/16 16:00 12/26/16 15:59 Objective Vital Signs Date Time Temp Pulse Resp B/P (MAP) Pulse Ox O2 Delivery O2 Flow Rate FiO2 12/25/16 10:00 143/67 (92) 12/25/16 07:55 36.5 63 16 161/71 (101) 95 Room Air 12/25/16 07:50 Room Air 12/24/16 23:44 37.2 60 18 144/60 (88) 96 Room Air 12/24/16 19:20 Room Air 12/24/16 16:00 Room Air 12/24/16 15:34 37.0 79 18 128/82 (97) 95 Room Air Physical Exam General Appearance: no apparent distress Eyes: sclerae normal ENT: hearing grossly normal Neck: supple, no JVD, trachea midline Respiratory/Chest: lungs clear, normal breath sounds, no respiratory distress, no accessory muscle use Cardiovascular: regular rate, rhythm, no gallop, no murmur Abdomen: normal bowel sounds, non tender, soft, + pertinent finding (+flatus; + burping; surgical incision well-approx. with melvin without erythema, drainage , tenderness) Neurologic/Psychiatric: alert Skin: normal color, warm/dry Laboratory Results Last 24 Hours Test 12/24/16 17:56 12/24/16 23:42 12/25/16 05:58 12/25/16 06:03 Bedside Glucose 124 mg/dl 106 mg/dl 112 mg/dl White Blood Count 10.69 K/uL Red Blood Count 3.39 M/uL Hemoglobin 10.2 g/dL Hematocrit 31.6 % Mean Corpuscular Volume 93.2 fL Mean Corpuscular Hemoglobin 30.1 pg Mean Corpuscular Hemoglobin Concent 32.3 g/dl RDW Standard Deviation 47.4 fL RDW Coefficient of Variation 14.0 % Platelet Count 265 K/uL Mean Platelet Volume 9.6 fL Sodium Level 141 mmol/L Potassium Level 3.5 mmol/L Chloride Level 109 mmol/L Carbon Dioxide Level 26 mmol/L Anion Gap 6.0 mmol/L Blood Urea Nitrogen 16 mg/dl Creatinine 0.81 mg/dl Est Creatinine Clear Calc Drug Dose 96.1 ml/min Estimated GFR () 100.8 Estimated GFR (Non- 86.9 BUN/Creatinine Ratio 19.6 Random Glucose 111 mg/dl Calcium Level 7.8 mg/dl Phosphorus Level 2.7 mg/dl Magnesium Level 2.2 mg/dl Test 12/25/16 11:51 Bedside Glucose 109 mg/dl Assessment and Plan This is a 75 yo M with PMHx of T2DM with Diabetic Neuropathy, HTN, Gout, LEN on CPAP, 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 Sigmoid Volvulus S/P Decompression 12/15 and 12/16 and S/P Sigmoid Colectomy 12/18 - Resolved post-operative ileus - NGT removed and abdomen remains non-distended - PICC line placed with TPN supplied - plan to continue until adequate oral intake achieved - Cipro 400 mg IV BID and Flagyl 500 mg IV Q8H on 12/15 to finish a 10 day course - today will be last day of dosing - Ranitidine 50 mg IV Q8H - General Surgery management appreciated - plan for EDUCATIONAL SPECIALIST evaluation and diet advancement - EDUCATIONAL SPECIALIST - recommending full liquid diet and to advance as tolerated Encephalopathy - Delirium vs Medication Withdrawal: RESOLVED - Suspect withdrawal symptoms as unable to give Sinemet, Zoloft, and Clonazepam with NPO - Reinstituted Sinemet, Zoloft and Clonazepam - Haldol x 1 dose given on 12/24 and no further dosing necessary at this point Low Urine Output: RESOLVED - Lasix x 2 days with diuresis but improved with reinstitution of fluids - now currently D/Cd and will D/C Peña - Follow UOP and straight cath is PVR >350 mL T2DM with Diabetic Neuropathy: A1c 5.9 (07/12/16) - Pt was recently taken off metformin by his PCP - continue to monitor and coverage if necessary - no coverage required so far Hypokalemia and Hypophosphatemia: RESOLVED - Continue to monitor and replete as necessary Parkinson's Disease/Restless Leg Syndrome: IMPROVING - Gabapentin 300 mg QID and Carbidopa/Levodopa 25/100 mg 1.5 tabs TID HTN: - Oral medications with the additional Metoprolol on hold due to NPO - use Hydralazine and Vasotec PRN Gout: - Allopurinol 300 mg daily - will hold at this time LEN: - CPAP at night - Clonazepam and Sertraline 25 mg daily - IV Ativan PRN - hopeful to not need now that on oral meds DVT Prophylaxis: EUSEBIO/SCDs; withhold chemical prophylaxis for surgical intervention Code Status: FULL RESUSCITATION Disposition: SNF vs Rehab - uncertain on D/C date - Discussed with daughter again today about acute rehab/SNF - still expresses desire to return home - will await new PT/OT visits and will monitor progress -- Anticipate continued stay possibly 3-4 days pending oral intake Continued [facility] stay due to: multiple IV medications needed Discharge planning: uncertain
[2016-12-25 15:30] VITALS: BP 143/72; PULSE 68; TEMP 36.8; O2SAT 95
[2016-12-25] MEDS ORDERED: CUSTOM CENTRAL PN 1 BAG IV SCH ×2 (16:00)
[2016-12-25] MEDS ORDERED: NURSING VERBAL MED ORDER ONE (17:15)
[2016-12-25] MEDS: CLONAZEPAM 0.5 MG TAB PO SCH (20:52)
[2016-12-25 23:02] VITALS: BP 152/79; PULSE 69; TEMP 36.7; O2SAT 94
[2016-12-26 06:19] LABS: HEMATOCRIT 32.7 % (42-52); MEAN CELL VOLUME 93.7 fL (80-100); MEAN CORPUSCULAR HEMOGLOBIN 30.7 pg (25-34); MEAN CORPUSCULAR HGB CONC 32.7 g/dl (32-36); PLATELET COUNT 295 K/uL (130-400); RED BLOOD COUNT 3.49 M/uL (4.7-6.1); WHITE BLOOD COUNT 11.39 K/uL (4.8-10.8)
[2016-12-26 06:44] LABS: BUN/CREATININE RATIO 17.6 (10-20); CALCIUM 8.2 mg/dl (8.5-10.1); CREATININE 0.9 mg/dl (0.60-1.40); MAGNESIUM 2.1 mg/dl (1.8-2.4); POTASSIUM 3.6 mmol/L (3.5-5.1)
[2016-12-26 06:45] LABS: PHOSPHORUS 2.5 mg/dl (2.5-4.9)
[2016-12-26 07:51] VITALS: BP 162/82; PULSE 81; TEMP 36.9; O2SAT 96
[2016-12-26] MEDS: CARBIDOPA/LEVODOPA 25/100MG TAB PO SCH ×3 (08:15→21:39)
[2016-12-26] MEDS: GABAPENTIN 300 MG CAP PO SCH ×4 (08:16→21:39)
[2016-12-26] MEDS: SERTRALINE HCL 50 MG TAB PO SCH (08:17)
--- NOTE | 2016-12-26 09:21 | Surgery Progress Note ---
Surgery Progress Note Date of Service Dec 26, 2016. Subjective more alert today, amb halls yesterday, tolerating full liquids Objective Vital Signs: Date Time Temp Pulse Resp B/P (MAP) Pulse Ox O2 Delivery O2 Flow Rate FiO2 12/26/16 07:51 36.9 81 19 162/82 (108) 96 Room Air 12/26/16 00:15 Room Air CPAP 12/25/16 23:02 36.7 69 16 152/79 (103) 94 CPAP 12/25/16 16:50 Room Air 12/25/16 15:30 36.8 68 16 143/72 (95) 95 Room Air 12/25/16 10:00 143/67 (92) Abdomen: non tender, soft, + distended Incision(s): clean, dry Laboratory Results: Results Past 24 Hours Test 12/25/16 11:51 12/25/16 17:14 12/25/16 20:59 12/26/16 05:51 Range/Units Bedside Glucose 109 101 121 70-99 mg/dl White Blood Count 11.39 4.8-10.8 K/uL Red Blood Count 3.49 4.7-6.1 M/uL Hemoglobin 10.7 14.0-18.0 g/dL Hematocrit 32.7 42-52 % Mean Corpuscular Volume 93.7 80-100 fL Mean Corpuscular Hemoglobin 30.7 25-34 pg Mean Corpuscular Hemoglobin Concent 32.7 32-36 g/dl RDW Standard Deviation 48.1 36.4-46.3 fL RDW Coefficient of Variation 14.1 11.5-14.5 % Platelet Count 295 130-400 K/uL Mean Platelet Volume 10.0 7.4-10.4 fL Sodium Level 140 136-145 mmol/L Potassium Level 3.6 3.5-5.1 mmol/L Chloride Level 107 98-107 mmol/L Carbon Dioxide Level 28 21-32 mmol/L Anion Gap 5.0 3-11 mmol/L Blood Urea Nitrogen 16 7-18 mg/dl Creatinine 0.90 0.60-1.40 mg/dl Est Creatinine Clear Calc Drug Dose 77.8 ml/min Estimated GFR () 96.5 Estimated GFR (Non- 83.3 BUN/Creatinine Ratio 17.6 10-20 Random Glucose 115 70-99 mg/dl Calcium Level 8.2 8.5-10.1 mg/dl Phosphorus Level 2.5 2.5-4.9 mg/dl Magnesium Level 2.1 1.8-2.4 mg/dl Test 12/26/16 08:04 Range/Units Bedside Glucose 136 70-99 mg/dl Assessment & Plan s/p sigmoid resection for volvulus post op ileus, resolved much improved in past 24 hrs advance diet, would continue TPN one more day
[2016-12-26 09:30] VITALS: O2SAT 96
[2016-12-26] MEDS: INSULIN ASPART 100 UNITS/ML 3 ML PEN SC SCH ×4 (09:53→21:00)
--- NOTE | 2016-12-26 14:57 | Progress Note ---
Subjective Date of Service: Dec 26, 2016. Subjective Pt evaluation today including: conversation w/ patient, physical exam, lab review, review of inpatient medication list Pain: no pain PO Intake: tolerating full liquids Voiding: no voiding problems patient doing well, sitting in chair voiding well after peña pulled increased ambulation, walking in halls now, dramatic improvement with Sinemet tolerating diet reviewed lab work, stable Problem List Medical Problems: (1) Rhabdomyolysis Status: Acute (2) Sigmoid volvulus Status: Acute (3) Weakness Status: Acute Review of Systems All Other Systems: Reviewed and Negative Medications Current Inpatient Medications Medications (Trade) Dose Ordered Sig/Chester Route Start Time Stop Time Status Last Admin Dose Admin Promethazine HCl 12.5 mg/Sodium Chloride 50.5 ml @ 204 mls/hr Q6H PRN IV 12/14/16 16:00 01/13/17 15:59 12/22/16 23:16 204 MLS/HR Ondansetron HCl (Zofran Inj) 4 mg Q6H PRN IV 12/14/16 16:00 01/13/17 15:59 12/22/16 16:28 4 MG Albuterol/ Ipratropium (Duoneb) 3 ml Q2R PRN INH 12/17/16 08:15 01/16/17 08:14 Hydralazine HCl (HydrALAZINE INJ) 10 mg Q6H PRN IV. 12/18/16 08:30 01/17/17 08:29 12/22/16 16:40 10 MG Naloxone HCl (Narcan Inj) 0.1 mg Q5M PRN IV 12/18/16 16:30 01/17/17 16:29 Gabapentin (Neurontin Cap) 300 mg QID PO 12/20/16 17:00 01/19/17 16:59 Future hold 12/26/16 13:28 300 MG Ranitidine HCl (zANTac TAB) 150 mg BID PO 12/20/16 21:00 01/19/17 20:59 Future Hold 12/22/16 07:14 150 MG Metoprolol Tartrate (Lopressor Tab) 12.5 mg BID PO 12/22/16 10:00 01/21/17 09:59 Future Hold 12/22/16 09:07 12.5 MG Allopurinol (Zyloprim Tab) 300 mg DAILY PO 12/22/16 10:00 01/21/17 09:59 Future Hold 12/22/16 09:07 300 MG Aspirin (Ecotrin Tab) 81 mg DAILY PO 12/22/16 10:00 01/21/17 09:59 Future Hold 12/22/16 09:06 81 MG Triamterene/HCTZ (Maxzide 37.5/25 Tab) 0.5 tab DAILY PO 12/22/16 10:00 01/21/17 09:59 Future Hold 12/22/16 09:06 0.5 TAB Cholecalciferol (Vitamin D Tab) 2,000 inter.unit DAILY PO 12/22/16 10:00 01/21/17 09:59 Future Hold 12/22/16 09:07 2,000 INTER.UNIT Cyanocobalamin (Vitamin B-12 Tab) 1,000 mcg DAILY PO 12/22/16 10:00 01/21/17 09:59 Future Hold 12/22/16 09:07 1,000 MCG Morphine Sulfate (MoRPHine SULFATE INJ) 2 mg Q4H PRN IV 12/22/16 17:00 01/05/17 16:59 Miscellaneous Information (Pharmacy Tpn/ Ppn Consult Active) 1 ea UD PRN N/A 12/22/16 17:15 12/26/16 15:58 Enalaprilat 0.625 mg/Dextrose 25.5 ml @ 100 mls/hr Q8H PRN IV 12/22/16 17:15 01/21/17 17:14 Lorazepam 0.5 mg/ Syringe 0.5 ml @ 0.5 mls/min Q6H PRN IV 12/22/16 23:45 01/21/17 23:44 12/25/16 02:06 0.5 MLS/MIN Dextrose 1,000 ml @ 0 mls/hr Q0M PRN IV 12/23/16 16:00 01/22/17 15:59 Heparin Sodium (Porcine) (Heparin 10 Unit/ ml 5 ml Flush) 5 ml PRN PRN FLUSH 12/24/16 02:15 01/23/17 02:14 12/26/16 05:48 5 ML Haloperidol Lactate (Haldol Inj) 5 mg Q24H PRN IM 12/24/16 13:30 01/23/17 13:29 Clonazepam (Klonopin Tab) 0.5 mg HS PO 12/24/16 21:00 01/23/17 20:59 12/25/16 20:52 0.5 MG Carbidopa/Levodopa (Sinemet 25/ 100MG Tab) 1.5 tab TID PO 12/24/16 14:00 01/23/17 13:59 12/26/16 13:28 1.5 TAB Sertraline HCl (Zoloft Tab) 25 mg QAM PO 12/25/16 09:00 01/24/17 08:59 12/26/16 08:17 25 MG Nutrition (Parenteral) 0 ml @ 0 mls/hr TODAY@1600 IV 12/25/16 16:00 12/26/16 15:59 12/25/16 16:54 0 MLS/HR Insulin Aspart (novoLOG ASPART) SLIDING SCALE PARAMETER ACHS SC 12/25/16 17:19 01/22/17 05:59 Objective Vital Signs Date Time Temp Pulse Resp B/P (MAP) Pulse Ox O2 Delivery O2 Flow Rate FiO2 12/26/16 09:30 96 Room Air 12/26/16 08:15 Room Air 12/26/16 07:51 36.9 81 19 162/82 (108) 96 Room Air 12/26/16 00:15 Room Air CPAP 12/25/16 23:02 36.7 69 16 152/79 (103) 94 CPAP 12/25/16 16:50 Room Air 12/25/16 15:30 36.8 68 16 143/72 (95) 95 Room Air Physical Exam General Appearance: WD/WN, no apparent distress ENT: normal ENT inspection, hearing grossly normal, pharynx normal Neck: supple, no adenopathy, no JVD, trachea midline Respiratory/Chest: chest non-tender, lungs clear, normal breath sounds, no respiratory distress, no accessory muscle use Cardiovascular: regular rate, rhythm, no edema, no gallop, no JVD, no murmur Abdomen: non tender, soft, no organomegaly, + abnormal bowel sounds (hypoactive ), + pertinent finding (incision clean and dry) Extremities: normal range of motion, non-tender, normal inspection, no pedal edema, no calf tenderness, pelvis stable Neurologic/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: 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, alert, normal mood/affect, oriented x 3, + pertinent finding (mild resting tremors) Skin: normal color, warm/dry, no rash Laboratory Results Last 24 Hours Test 12/25/16 17:14 12/25/16 20:59 12/26/16 05:51 12/26/16 08:04 Bedside Glucose 101 mg/dl 121 mg/dl 136 mg/dl White Blood Count 11.39 K/uL Red Blood Count 3.49 M/uL Hemoglobin 10.7 g/dL Hematocrit 32.7 % Mean Corpuscular Volume 93.7 fL Mean Corpuscular Hemoglobin 30.7 pg Mean Corpuscular Hemoglobin Concent 32.7 g/dl RDW Standard Deviation 48.1 fL RDW Coefficient of Variation 14.1 % Platelet Count 295 K/uL Mean Platelet Volume 10.0 fL Sodium Level 140 mmol/L Potassium Level 3.6 mmol/L Chloride Level 107 mmol/L Carbon Dioxide Level 28 mmol/L Anion Gap 5.0 mmol/L Blood Urea Nitrogen 16 mg/dl Creatinine 0.90 mg/dl Est Creatinine Clear Calc Drug Dose 77.8 ml/min Estimated GFR () 96.5 Estimated GFR (Non- 83.3 BUN/Creatinine Ratio 17.6 Random Glucose 115 mg/dl Calcium Level 8.2 mg/dl Phosphorus Level 2.5 mg/dl Magnesium Level 2.1 mg/dl Test 12/26/16 12:01 Bedside Glucose 114 mg/dl Assessment and Plan This is a 75 yo M with PMHx of T2DM with Diabetic Neuropathy, HTN, Gout, LEN on CPAP, 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 Sigmoid Volvulus S/P Decompression 12/15 and 12/16 and S/P Sigmoid Colectomy 12/18 - post op ileus is resolved, liquid BM, no vomiting, tolerating full liquid diet , he has an appetite - PICC line placed with TPN supplied - plan to continue until adequate oral intake achieved, hopefully tomorrow will be last day - Cipro 400 mg IV BID and Flagyl 500 mg IV Q8H on 12/15 to finish a 10 day course - completed - Ranitidine 50 mg IV Q8H - discharge when okay with general surgery Encephalopathy - Delirium vs Medication Withdrawal: RESOLVED - Suspect withdrawal symptoms as unable to give Sinemet, Zoloft, and Clonazepam with NPO - Reinstituted Sinemet, Zoloft and Clonazepam on 12/24 - mental status clear today, joking around, oriented x 3 Low Urine Output: RESOLVED - peña pulled on 12/25, urinating well, 250-300cc at a time T2DM with Diabetic Neuropathy: A1c 5.9 (07/12/16) - Pt was recently taken off metformin by his PCP - continue to monitor and coverage if necessary - no coverage required so far Hypokalemia and Hypophosphatemia: RESOLVED - Continue to monitor and replete as necessary Parkinson's Disease/Restless Leg Syndrome: IMPROVING - Gabapentin 300 mg QID and Carbidopa/Levodopa 25/100 mg 1.5 tabs TID HTN: - Oral medications with the additional Metoprolol on hold due to NPO - use Hydralazine and Vasotec PRN Gout: - Allopurinol 300 mg daily - will hold at this time LEN: - CPAP at night - Clonazepam and Sertraline 25 mg daily - IV Ativan PRN - hopeful to not need now that on oral meds DVT Prophylaxis: EUSEBIO/SCDs; withhold chemical prophylaxis for surgical intervention Code Status: FULL RESUSCITATION Disposition: plan to go home with aide of family and possibly home health anticipate in the next 2-[address] [facility] stay due to: multiple IV medications needed Discharge planning: uncertain
[2016-12-26 15:00] VITALS: BP 124/65; PULSE 104; TEMP 36.8; O2SAT 95
[2016-12-26] MEDS: CLONAZEPAM 0.5 MG TAB PO SCH (21:39)
[2016-12-26 22:45] VITALS: BP 128/75; PULSE 62; TEMP 37.1; O2SAT 94
[2016-12-27 07:18] VITALS: BP 127/65; PULSE 63; TEMP 36.4; O2SAT 91
[2016-12-27] MEDS: INSULIN ASPART 100 UNITS/ML 3 ML PEN SC SCH ×4 (08:00→21:00)
--- NOTE | 2016-12-27 08:13 | Surgery Progress Note ---
Surgery Progress Note Date of Service Dec 27, 2016. Subjective + feeling well, + bowel movement (yesterday), + diet (regular), No nausea Objective Vital Signs: Date Time Temp Pulse Resp B/P (MAP) Pulse Ox O2 Delivery O2 Flow Rate FiO2 12/27/16 07:18 36.4 63 17 127/65 (85) 91 Room Air 12/27/16 07:15 Room Air 12/26/16 23:15 Room Air 12/26/16 22:45 37.1 62 16 128/75 (92) 94 BiPAP 12/26/16 15:30 Room Air 12/26/16 15:00 36.8 104 18 124/65 (84) 95 Room Air 12/26/16 09:30 96 Room Air 12/26/16 08:15 Room Air Abdomen: non distended, soft Laboratory Results: Results Past 24 Hours Test 12/26/16 12:01 12/26/16 16:47 12/26/16 20:25 Range/Units Bedside Glucose 114 88 107 70-99 mg/dl Assessment & Plan s/p sigmoid resection for volvulus post op ileus, resolved tolerating diet, off TPN d/c per primary, follow-up in 7-[address] Taylor
[2016-12-27] MEDS: SERTRALINE HCL 50 MG TAB PO SCH (09:00)
[2016-12-27] MEDS: GABAPENTIN 300 MG CAP PO SCH ×4 (09:00→21:22)
[2016-12-27] MEDS: CARBIDOPA/LEVODOPA 25/100MG TAB PO SCH ×3 (09:00→21:22)
--- NOTE | 2016-12-27 13:55 | Hospitalist Progress Note ---
Hospitalist Progress Note Date of Service Dec 27, 2016. Subjective Pt evaluation today including: conversation w/ patient, physical exam, chart review, lab review, review of studies, review of inpatient medication list Patient seen and evaluated. Verbalized no complaints other than being tired from lack of sleep. He is tolerating a diet and moving his bowels. He is not having abdominal bloating. He has improved with ambulation and no noted tremor or agitation/delirium today. Constitutional: No fever, No chills Respiratory: No shortness of breath Cardiovascular: No chest pain Abdomen: No pain, No nausea, No vomiting Male : No dysuria Medications Current Inpatient Medications Medications (Trade) Dose Ordered Sig/Chester Route Start Time Stop Time Status Last Admin Dose Admin Promethazine HCl 12.5 mg/Sodium Chloride 50.5 ml @ 204 mls/hr Q6H PRN IV 12/14/16 16:00 01/13/17 15:59 12/22/16 23:16 204 MLS/HR Ondansetron HCl (Zofran Inj) 4 mg Q6H PRN IV 12/14/16 16:00 01/13/17 15:59 12/22/16 16:28 4 MG Albuterol/ Ipratropium (Duoneb) 3 ml Q2R PRN INH 12/17/16 08:15 01/16/17 08:14 Hydralazine HCl (HydrALAZINE INJ) 10 mg Q6H PRN IV. 12/18/16 08:30 01/17/17 08:29 12/22/16 16:40 10 MG Naloxone HCl (Narcan Inj) 0.1 mg Q5M PRN IV 12/18/16 16:30 01/17/17 16:29 Gabapentin (Neurontin Cap) 300 mg QID PO 12/20/16 17:00 01/19/17 16:59 Future hold 12/27/16 13:25 300 MG Ranitidine HCl (zANTac TAB) 150 mg BID PO 12/20/16 21:00 01/19/17 20:59 Future Hold 12/22/16 07:14 150 MG Metoprolol Tartrate (Lopressor Tab) 12.5 mg BID PO 12/22/16 10:00 01/21/17 09:59 Future Hold 12/22/16 09:07 12.5 MG Allopurinol (Zyloprim Tab) 300 mg DAILY PO 12/22/16 10:00 01/21/17 09:59 Future Hold 12/22/16 09:07 300 MG Aspirin (Ecotrin Tab) 81 mg DAILY PO 12/22/16 10:00 01/21/17 09:59 Future Hold 12/22/16 09:06 81 MG Triamterene/HCTZ (Maxzide 37.5/25 Tab) 0.5 tab DAILY PO 12/22/16 10:00 01/21/17 09:59 Future Hold 12/22/16 09:06 0.5 TAB Cholecalciferol (Vitamin D Tab) 2,000 inter.unit DAILY PO 12/22/16 10:00 01/21/17 09:59 Future Hold 12/22/16 09:07 2,000 INTER.UNIT Cyanocobalamin (Vitamin B-12 Tab) 1,000 mcg DAILY PO 12/22/16 10:00 01/21/17 09:59 Future Hold 12/22/16 09:07 1,000 MCG Morphine Sulfate (MoRPHine SULFATE INJ) 2 mg Q4H PRN IV 12/22/16 17:00 01/05/17 16:59 Enalaprilat 0.625 mg/Dextrose 25.5 ml @ 100 mls/hr Q8H PRN IV 12/22/16 17:15 01/21/17 17:14 Lorazepam 0.5 mg/ Syringe 0.5 ml @ 0.5 mls/min Q6H PRN IV 12/22/16 23:45 01/21/17 23:44 12/25/16 02:06 0.5 MLS/MIN Heparin Sodium (Porcine) (Heparin 10 Unit/ ml 5 ml Flush) 5 ml PRN PRN FLUSH 12/24/16 02:15 01/23/17 02:14 12/27/16 13:28 15 ML Haloperidol Lactate (Haldol Inj) 5 mg Q24H PRN IM 12/24/16 13:30 01/23/17 13:29 Clonazepam (Klonopin Tab) 0.5 mg HS PO 12/24/16 21:00 01/23/17 20:59 12/26/16 21:39 0.5 MG Carbidopa/Levodopa (Sinemet 25/ 100MG Tab) 1.5 tab TID PO 12/24/16 14:00 01/23/17 13:59 12/27/16 13:25 1.5 TAB Sertraline HCl (Zoloft Tab) 25 mg QAM PO 12/25/16 09:00 01/24/17 08:59 12/27/16 09:00 25 MG Insulin Aspart (novoLOG ASPART) SLIDING SCALE PARAMETER ACHS SC 12/25/16 17:19 01/22/17 05:59 Objective Vital Signs Date Time Temp Pulse Resp B/P (MAP) Pulse Ox O2 Delivery O2 Flow Rate FiO2 12/27/16 07:18 36.4 63 17 127/65 (85) 91 Room Air 12/27/16 07:15 Room Air 12/26/16 23:15 Room Air 12/26/16 22:45 37.1 62 16 128/75 (92) 94 BiPAP 12/26/16 15:30 Room Air 12/26/16 15:00 36.8 104 18 124/65 (84) 95 Room Air Physical Exam General Appearance: WD/WN, no apparent distress Eyes: sclerae normal ENT: hearing grossly normal Neck: supple, no JVD, trachea midline Respiratory/Chest: lungs clear, normal breath sounds, no respiratory distress, no accessory muscle use Cardiovascular: regular rate, rhythm, no gallop, no murmur Abdomen: normal bowel sounds, non tender, soft, + pertinent finding (midline surgical incision - well approximated without erythema, drainage, warmth) Extremities: no calf tenderness, + pertinent finding (RUE PICC without erythema , edema, tenderness) Neurologic/Psychiatric: alert Skin: normal color, warm/dry Laboratory Results Last 24 Hours Test 12/26/16 16:47 12/26/16 20:25 12/27/16 08:05 12/27/16 12:00 Bedside Glucose 88 mg/dl 107 mg/dl 109 mg/dl 105 mg/dl Diagnostic Results Current Inpatient Medications Medications (Trade) Dose Ordered Sig/Chester Route Start Time Stop Time Status Last Admin Dose Admin Promethazine HCl 12.5 mg/Sodium Chloride 50.5 ml @ 204 mls/hr Q6H PRN IV 12/14/16 16:00 01/13/17 15:59 12/22/16 23:16 204 MLS/HR Ondansetron HCl (Zofran Inj) 4 mg Q6H PRN IV 12/14/16 16:00 01/13/17 15:59 12/22/16 16:28 4 MG Albuterol/ Ipratropium (Duoneb) 3 ml Q2R PRN INH 12/17/16 08:15 01/16/17 08:14 Hydralazine HCl (HydrALAZINE INJ) 10 mg Q6H PRN IV. 12/18/16 08:30 01/17/17 08:29 12/22/16 16:40 10 MG Naloxone HCl (Narcan Inj) 0.1 mg Q5M PRN IV 12/18/16 16:30 01/17/17 16:29 Gabapentin (Neurontin Cap) 300 mg QID PO 12/20/16 17:00 01/19/17 16:59 Future hold 12/27/16 13:25 300 MG Ranitidine HCl (zANTac TAB) 150 mg BID PO 12/20/16 21:00 01/19/17 20:59 Future Hold 12/22/16 07:14 150 MG Metoprolol Tartrate (Lopressor Tab) 12.5 mg BID PO 12/22/16 10:00 01/21/17 09:59 Future Hold 12/22/16 09:07 12.5 MG Allopurinol (Zyloprim Tab) 300 mg DAILY PO 12/22/16 10:00 01/21/17 09:59 Future Hold 12/22/16 09:07 300 MG Aspirin (Ecotrin Tab) 81 mg DAILY PO 12/22/16 10:00 01/21/17 09:59 Future Hold 12/22/16 09:06 81 MG Triamterene/HCTZ (Maxzide 37.5/25 Tab) 0.5 tab DAILY PO 12/22/16 10:00 01/21/17 09:59 Future Hold 12/22/16 09:06 0.5 TAB Cholecalciferol (Vitamin D Tab) 2,000 inter.unit DAILY PO 12/22/16 10:00 01/21/17 09:59 Future Hold 12/22/16 09:07 2,000 INTER.UNIT Cyanocobalamin (Vitamin B-12 Tab) 1,000 mcg DAILY PO 12/22/16 10:00 01/21/17 09:59 Future Hold 12/22/16 09:07 1,000 MCG Morphine Sulfate (MoRPHine SULFATE INJ) 2 mg Q4H PRN IV 12/22/16 17:00 01/05/17 16:59 Enalaprilat 0.625 mg/Dextrose 25.5 ml @ 100 mls/hr Q8H PRN IV 12/22/16 17:15 01/21/17 17:14 Lorazepam 0.5 mg/ Syringe 0.5 ml @ 0.5 mls/min Q6H PRN IV 12/22/16 23:45 01/21/17 23:44 12/25/16 02:06 0.5 MLS/MIN Heparin Sodium (Porcine) (Heparin 10 Unit/ ml 5 ml Flush) 5 ml PRN PRN FLUSH 12/24/16 02:15 01/23/17 02:14 12/27/16 13:28 15 ML Haloperidol Lactate (Haldol Inj) 5 mg Q24H PRN IM 12/24/16 13:30 01/23/17 13:29 Clonazepam (Klonopin Tab) 0.5 mg HS PO 12/24/16 21:00 01/23/17 20:59 12/26/16 21:39 0.5 MG Carbidopa/Levodopa (Sinemet 25/ 100MG Tab) 1.5 tab TID PO 12/24/16 14:00 01/23/17 13:59 12/27/16 13:25 1.5 TAB Sertraline HCl (Zoloft Tab) 25 mg QAM PO 12/25/16 09:00 01/24/17 08:59 12/27/16 09:00 25 MG Insulin Aspart (novoLOG ASPART) SLIDING SCALE PARAMETER ACHS SC 12/25/16 17:19 01/22/17 05:59 Assessment and Plan This is a 75 yo M with PMHx of T2DM with Diabetic Neuropathy, HTN, Gout, LEN on CPAP, 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 Sigmoid Volvulus S/P Decompression 12/15 and 12/16 and S/P Sigmoid Colectomy 12/18 - Resolved post-operative ileus - tolerating advanced diet, TPN D/Cd, and is having BMs - Cipro 400 mg IV BID and Flagyl 500 mg IV Q8H course complete - General Surgery following - request follow-up in 7-10 days Encephalopathy - Delirium vs Medication Withdrawal: RESOLVED - Suspect withdrawal symptoms as unable to give Sinemet, Zoloft, and Clonazepam when NPO Low Urine Output: RESOLVED T2DM with Diabetic Neuropathy: A1c 5.9 (07/12/16) - Pt was recently taken off metformin by his PCP Hypokalemia and Hypophosphatemia: RESOLVED - Continue to monitor and replete as necessary Parkinson's Disease/Restless Leg Syndrome: IMPROVING - Gabapentin 300 mg QID and Carbidopa/Levodopa 25/100 mg 1.5 tabs TID - Clonazepam 0.5 mg HS and Sertraline 25 mg daily HTN: - Resume home medications - Metoprolol was added in hospital - will continue to monitor BP - will consider adding prior to D/C Gout: - Allopurinol 300 mg daily - will hold at this time LEN: CPAP at night DVT Prophylaxis: EUSEBIO/SCDs; withhold chemical prophylaxis for surgical intervention Code Status: FULL RESUSCITATION Disposition: D/C likely tomorrow with HHS and family support Discharge planning: home with home health
[2016-12-27 15:45] VITALS: BP 112/63; PULSE 68; TEMP 37.1; O2SAT 95
[2016-12-27] MEDS: CLONAZEPAM 0.5 MG TAB PO SCH (21:22)
[2016-12-27] MEDS: RANITIDINE HCL 150 MG TAB PO SCH (21:22)
[2016-12-27] MEDS: LORAZEPAM INJ 0.5 MG in SYRINGE 0.25 ML IV PRN (21:42)
[2016-12-27 22:45] VITALS: BP 153/72; PULSE 61; TEMP 36.5; O2SAT 95
[2016-12-28 05:58] LABS: HEMATOCRIT 31.5 % (42-52); MEAN CELL VOLUME 94.6 fL (80-100); MEAN CORPUSCULAR HEMOGLOBIN 30.3 pg (25-34); MEAN CORPUSCULAR HGB CONC 32.1 g/dl (32-36); MEAN PLATELET VOLUME 9.9 fL (7.4-10.4); PLATELET COUNT 309 K/uL (130-400); RED BLOOD COUNT 3.33 M/uL (4.7-6.1); WHITE BLOOD COUNT 10.13 K/uL (4.8-10.8)
[2016-12-28 06:30] LABS: BUN/CREATININE RATIO 17.9 (10-20)
[2016-12-28 07:30] VITALS: O2SAT 96
[2016-12-28 07:56] VITALS: BP 144/68; PULSE 63; TEMP 37.2; O2SAT 96
[2016-12-28 07:57] VITALS: O2SAT 96
[2016-12-28] MEDS: INSULIN ASPART 100 UNITS/ML 3 ML PEN SC SCH ×2 (08:00→12:00)
--- NOTE | 2016-12-28 08:24 | Surgery Progress Note ---
Surgery Progress Note Date of Service Dec 28, 2016. Subjective + feeling well, + bowel movement, No nausea Objective Vital Signs: Date Time Temp Pulse Resp B/P (MAP) Pulse Ox O2 Delivery O2 Flow Rate FiO2 12/28/16 07:57 96 Room Air 12/28/16 07:56 37.2 63 18 144/68 (93) 96 Room Air 12/28/16 00:00 Room Air 12/27/16 22:45 36.5 61 20 153/72 (99) 95 CPAP 12/27/16 19:45 Room Air BiPAP 12/27/16 15:50 Room Air 12/27/16 15:45 37.1 68 16 112/63 (79) 95 Room Air Abdomen: non distended, soft Incision(s): clean, dry, no erythema Laboratory Results: Results Past 24 Hours Test 12/27/16 12:00 12/27/16 16:58 12/27/16 20:53 12/28/16 05:46 Range/Units Bedside Glucose 105 100 99 70-99 mg/dl White Blood Count 10.13 4.8-10.8 K/uL Red Blood Count 3.33 4.7-6.1 M/uL Hemoglobin 10.1 14.0-18.0 g/dL Hematocrit 31.5 42-52 % Mean Corpuscular Volume 94.6 80-100 fL Mean Corpuscular Hemoglobin 30.3 25-34 pg Mean Corpuscular Hemoglobin Concent 32.1 32-36 g/dl RDW Standard Deviation 49.1 36.4-46.3 fL RDW Coefficient of Variation 14.3 11.5-14.5 % Platelet Count 309 130-400 K/uL Mean Platelet Volume 9.9 7.4-10.4 fL Sodium Level 140 136-145 mmol/L Potassium Level 4.0 3.5-5.1 mmol/L Chloride Level 107 98-107 mmol/L Carbon Dioxide Level 28 21-32 mmol/L Anion Gap 5.0 3-11 mmol/L Blood Urea Nitrogen 18 7-18 mg/dl Creatinine 1.00 0.60-1.40 mg/dl Est Creatinine Clear Calc Drug Dose 77.7 ml/min Estimated GFR () 85.0 Estimated GFR (Non- 73.3 BUN/Creatinine Ratio 17.9 10-20 Random Glucose 103 70-99 mg/dl Calcium Level 8.0 8.5-10.1 mg/dl Assessment & Plan s/p sigmoid resection for volvulus post op ileus, resolved stable for d/c, has home health/PT f/u next week for staple removal was taking Miralax regularly at home, may not need that now
[2016-12-28] MEDS: CARBIDOPA/LEVODOPA 25/100MG TAB PO SCH ×2 (09:37→13:45)
[2016-12-28] MEDS: SERTRALINE HCL 50 MG TAB PO SCH (09:38)
[2016-12-28] MEDS: GABAPENTIN 300 MG CAP PO SCH ×2 (09:38→13:45)
[2016-12-28] MEDS: RANITIDINE HCL 150 MG TAB PO SCH (09:39)
[2016-12-28] MEDS: TRIAMTERENE/HCTZ 37.5/25MG TAB PO SCH (09:40)
[2016-12-28] MEDS: ALLOPURINOL 300 MG TAB PO SCH (09:40)
[2016-12-28] MEDS ORDERED: POLY1POW2 PO (10:20)
--- NOTE | 2016-12-28 10:28 | Discharge Instructions ---
Discharge Instructions Date of Service Dec 28, 2016. Admission Reason for Admission: Volvulus Discharge Discharge Diagnosis / Problem: Volvulus with Sigmoid Colectomy Discharge Goals Goal(s): Decrease discomfort, Improve function, Increase independence Activity Recommendations Activity Limitations: as noted below Lifting Limitations: gradually increase as tolerated Exercise/Sports Limitations: until after follow-up appointment Shower/Bathe: no limitations . Instructions / Follow-Up Instructions / Follow-Up Sigmoid Volvulus with Sigmoid Colectomy: - Continue your diet as tolerated and continue to monitor for passing of gas and bowel movements - Surgery would like to follow-up with you in about a week to have the melvin removed. - Watch the incision site for increased pain, redness, drainage, or separation - if you notice anything like this please come to the emergency department - Your Miralax was moved to daily as needed for constipation - but if bowel movements remain an issue you may continue your previous dosing Home Medications: - Continue your home medications as previously prescribed Follow-Up: - Please see your family doctor in 7-10 days. We will help assist with an appointment - Please see your surgeon in 1 week to have melvin removed and to follow-up Current Hospital Diet Patient's current hospital diet: Diabetes Type 2 Diet Discharge Diet Recommended Diet: Diabetes Type 2 Diet Procedures Procedures Performed: Sigmoid Colectomy with primary anastomosis;enterolysis Pending Studies Studies pending at discharge: no Laboratory Results Lipid Panel Test 12/23/16 05:30 Range/Units Triglycerides Level 74 0-150 mg/dl Cholesterol Level 74 0-200 mg/dl HDL Cholesterol 26 mg/dl Cholesterol/HDL Ratio 2.8 LDL Cholesterol, Calculated 33 mg/dl Medical Emergencies . Who to Call and When: Medical Emergencies: If at any time you feel your situation is an emergency, please call 911 immediately. . Non-Emergent Contact Non-Emergency issues call your: Primary Care Provider Call Non-Emergent contact if: you have a fever, your pain is concerning you, you have any medication questions . . "Provider Documentation" section prepared by Cristel Garcia. . VTE Core Measure Inpt VTE Proph given/why not?: Unfractionated heparin SQ, T.E.D. Stockings, SCD 's
[2016-12-28 11:29] VITALS: BP 144/68; PULSE 63; TEMP 37.2; O2SAT 96
--- NOTE | 2016-12-28 15:58 | Discharge Summary ---
Discharge Summary Date of Service Dec 28, 2016. Discharge Summary Admission Date: Dec 14, 2016 at 15:52 Discharge Date: Dec 28, 2016 Discharge Disposition: Home with services Principal Diagnosis: Volvulus S/P Sigmoid Colectomy Problems/Secondary Diagnoses: 1. HTN 2. LEN on CPAP 3. T2DM with Diabetic Neuropathy (off medication) 4. DVT/PE (2013 - off anticoagulation) 5. Gout 6. Gastroparesis 7. Anxiety 8. Parkinson's 9. Restless Legs 10. S/P Colonic Polyp Resection (Benign) Procedures: CT SCAN OF THE ABDOMEN AND PELVIS WITH IV CONTRAST Lung bases: The heart is enlarged and without pericardial effusion. There are coronary artery calcifications. The lung bases are clear noting bibasilar atelectasis. There is a tiny hiatal hernia. Liver: The contrast-enhanced liver is normal in size, contour, and attenuation. There is no intrahepatic biliary ductal dilatation. The hepatic veins and portal veins are patent. Gallbladder: Unremarkable. Spleen: Normal in size and attenuation. There are calcified splenic granulomas. Pancreas: Atrophic and grossly unremarkable. Adrenal glands: Unremarkable. Kidneys: The contrast enhanced kidneys are atrophic and without hydronephrosis. Next renal pelvises noted on the left. The kidneys enhance symmetrically. A left renal cyst measures 8.5 cm. Abdominal vasculature: The abdominal aorta is normal in course and caliber noting advanced atherosclerotic calcification. Bowel: There are postoperative changes from right hemicolectomy with ileocolic anastomosis. The small bowel loops are normal in caliber. The sigmoid colon is tortuous. There is focal twisting of the sigmoid colon upon itself seen to the right of midline in the pelvis on axial image #[id number]. The upstream sigmoid colon is distended and gas-filled number up to 8.5 cm in diameter. There is inflammatory stranding with vascular congestion and trace fluid seen around the twisted loop in the pelvis on axial image #309. The appearance is consistent with sigmoid volvulus. No wall thickening is identified. The more proximal colon is distended with gas and fluid. Scattered colonic diverticula are noted. Peritoneum: There is no intraperitoneal free air or abdominal ascites. Lymphadenopathy: None. Pelvic viscera: The prostate gland is enlarged and heterogeneous measuring 5.7 cm in transverse diameter. There is median lobe hypertrophy. The bladder wall is mildly thickened and trabeculated consistent with chronic outlet obstruction. Skeletal structures: The skeletal structures are osteopenic. There is a mild compression deformity of L5. Moderate to advanced lumbosacral spondylosis is observed. No lytic or blastic lesions are seen. IMPRESSION: 1. Streak and motion artifact degraded examination 2. Findings are consistent with sigmoid volvulus. There is mesenteric edema with venous engorgement around the twisted loop in the pelvis. Surgical consultation is advised. 3. The upstream colon is distended and fluid-filled. No intraperitoneal free air is seen. 4. There are postoperative changes from right hemicolectomy with ileocolic anastomosis. The small bowel loops are normal in caliber. 5. Cardiomegaly. 6. Prostatomegaly with evidence of chronic bladder outlet obstruction. 7. Additional findings as above. PA CHEST RADIOGRAPH AND UPRIGHT AND SUPINE AP RADIOGRAPHS OF THE ABDOMEN FINDINGS: There is no pneumothorax or pleural effusion. Bibasilar opacities favor atelectasis. There may be a trace left pleural effusion. There is no evidence of pulmonary edema. Calcified right lung nodule is noted. There is no free air. Marked colonic distention has increased since prior exam. Colonic loops measure up to 12 cm in caliber. There has been interval development of small bowel dilatation since exam of December 14, 2016. There is a paucity of rectal gas. There is no radiographic evidence of pneumatosis or portal venous gas. IMPRESSION: Increase in marked colonic gaseous distention and interval development of small bowel dilatation since CT of December 14, 2016. The findings are consistent with a persistent distal colonic obstruction and favor a sigmoid volvulus. Discussed with Dr. Bee at time of dictation. Consultations: 1. Gastroenterology 2. General Surgery 3. Anesthesiology 4. PT/OT Medication Reconciliation Changed Medications: Polyethylene Glycol 3350 (Bulk (Polyethylene Glycol 3350) 1 Pow Pow 17 GM PO DAILY PRN for Constipation, #255 GM (Changed from: BID) Continued Medications: Allopurinol (Zyloprim) 300 Mg Tab 300 MG PO DAILY, TAB Aspirin (Aspirin Ec) 81 Mg Tab 81 MG PO DAILY Carbidopa/Levodopa (Sinemet 25MG/100MG) Tab 1.5 TAB PO TID for 30 Days, TAB Cholecalciferol (Vitamin D3) 2,000 Unit Cap 2000 UNITS PO DAILY for 90 Days, CAP 3 Refills Clonazepam (Klonopin) 0.5 Mg Tab 0.25-0.5 MG PO HS PRN for Sleep, #3 TAB Cyanocobalamin (Vitamin B12) 1,000 Mcg Tab 1000 MCG PO DAILY for 30 Days Gabapentin (Neurontin) 300 Mg Cap 300 MG PO QID, CAP Miconazole Nitrate (Desenex Shake Powder) 43 Appln/43 Gm Powd 1 APPLN EXT BID PRN for Affected Skin Folds for 30 Days Ondansetron Hcl (Zofran) 4 Mg Tab 4 MG PO q6hrs PRN for Nausea, TAB Ranitidine (Zantac) 150 Mg Tab 150 MG PO BID, TAB Sertraline (Zoloft) 25 Mg Tab 1 TAB PO DAILY for 30 Days, #30 TAB 2 Refills Triamterene/Hctz (Triamterene/Hctz 37.5-25MG) 1 Tab Tab 0.5 TAB PO DAILY for 30 Days, #15 TAB 0 Refills Discharge Exam Review of Systems: Constitutional: No fever, No chills ENT: No nasal symptoms, No sore throat, No trouble swallowing Respiratory: No cough, No shortness of breath Cardiovascular: No chest pain, No palpitations Abdomen: No pain, No nausea, No vomiting, No diarrhea, No constipation, No GI bleeding Musculoskeletal: + problem reported (Cervical stiffness - chronic), No swelling, No calf pain Genitourinary - Male: No dysuria, No urinary retention Hematologic / Lymphatic: No abnormal bleeding/bruising, No clotting problems Integumentary: No rash Physical Exam: General Appearance: WD/WN, no apparent distress Eyes: sclerae normal ENT: hearing grossly normal Neck: supple, no JVD, trachea midline Respiratory/Chest: lungs clear, normal breath sounds, no respiratory distress, no accessory muscle use Cardiovascular: regular rate, rhythm, no gallop, no murmur Abdomen / GI: normal bowel sounds, non tender, soft, + pertinent finding ( midline surgical incision, well-approximated with stables in place - no erythema /drainage/dehiscence/tenderness) Extremities: no pedal edema Neurologic/Psychiatric: alert, oriented x 3 Skin: normal color, warm/dry Hospital Course ADMISSION: This is a 75 yo M with PMHx of T2DM with Diabetic Neuropathy, HTN, Gout, LEN on CPAP, 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 The patient's daughter and son are present at bedside. the pt reports this worsening abdominal distention and bloating has never happened before. He notes his last bowel movement was on Sunday and it was very loose. He is not passing much gas. Denies any nausea, vomiting or abdominal pain. He was able to take his morning medications today. The patient reports having a colonoscopy performed last year but cannot remember the name of the provider who did it, but does recall it was at [place] at [facility]. He denies abnormal findings. Prior to this colonoscopy, he had one [place] [address] rios , a right hemicolectomy was performed due to an enlarged polyp which was unable to be removed via colonoscopy, pathology was benign. CT of the abdomen and pelvis was completed in the ER showing diffuse sigmoid volvulus, GI and general surgery are both on board. GI plans to do a colonoscopy for decompression in the morning. No leukocytosis, other vital signs are stable. HOSPITAL COURSE: Mr. Montalvo was admitted for a volvulus and is S/P sigmoid colectomy on 12/18/16. Patient was admitted with two failed decompressions by colonoscopy. On second colonoscopy there was evidence of mucosal ulceration and Cipro and Flagyl IV was initiated and a 10 day course was completed. He was clinically improving with advancement in diet initially. Hospital admission complicated by a post-operative ileus requiring NGT placement and initiation of TPN. In addition, due to NPO status patient was unable to be given his Sinemet, Zoloft, and other home medications leading to acute delirium, restlessness, significant tremors, and ambulatory dysfunction. Ileus resolved and his diet was advanced as tolerated and home medications instituted. Ambulatory status improved with control of Parkinsons. When oral intake was adequate his TPN was discontinued. Discussion with family about acute rehab took place multiple times but was ultimately decline. Home health services initiated with family support for 11/12 care. Patient is hemodynamically stable and optimal for D/C home with family and outpatient follow-up. Plan to remove melvin per surgery in approx. 1 week. Total Time Spent: Greater than 30 minutes This includes examination of the patient, discharge planning, medication reconciliation, and communication with other providers. Discharge Instructions Please refer to the electronic Patient Visit Report (Discharge Instructions) for additional information. Additional Copies To Kolton Escalera D.O.; John Rayo M.D.
[2017-01-04] MEDS ORDERED: CMD5 PO ×2 (15:12)
[2017-01-04] MEDS ORDERED: CLON0.5T3 PO (15:12)
[2017-01-04] MEDS ORDERED: LSN25 PO (15:12)
== END 2016-12-28 14:22 | disposition home health service (06) | DRG 329 ==
LOC: C.EDB 10:28 → C.MSN 15:52 → ENRESERV 16:39
PROVIDERS: ADMIT Internal Medicine; ATTEND Internal Medicine
PROC: 0D7N8ZZ Dilation of Sigmoid Colon, Via Natural or Artificial Opening Endoscopic (ICD-10-PCS; 2016-12-15)
PROC: 0D7N8DZ Dilation of Sigmoid Colon with Intraluminal Device, Via Natural or Artificial Opening Endoscopic (ICD-10-PCS; 2016-12-16)
PROC: 0D1N0ZN Bypass Sigmoid Colon to Sigmoid Colon, Open Approach (ICD-10-PCS; principal; 2016-12-18 13:00)
PROC: 05HY33Z Insertion of Infusion Device into Upper Vein, Percutaneous Approach (ICD-10-PCS; 2016-12-23)
DX: K56.2 Volvulus (principal); G93.40 Encephalopathy, unspecified; K91.3 Postprocedural intestinal obstruction; E87.6 Hypokalemia; E11.40 Type 2 diabetes mellitus with diabetic neuropathy, unspecified; G20 Parkinson's disease; G25.81 Restless legs syndrome; I10 Essential (primary) hypertension; M10.9 Gout, unspecified; G47.33 Obstructive sleep apnea (adult) (pediatric); F41.9 Anxiety disorder, unspecified; R33.9 Retention of urine, unspecified; R06.00 Dyspnea, unspecified; E83.39 Other disorders of phosphorus metabolism; Z98.0 Intestinal bypass and anastomosis status; Z86.711 Personal history of pulmonary embolism; Z86.718 Personal history of other venous thrombosis and embolism; Z87.891 Personal history of nicotine dependence; Z79.82 Long term (current) use of aspirin; Z79.899 Other long term (current) drug therapy; Z83.3 Family history of diabetes mellitus; Z80.3 Family history of malignant neoplasm of breast

== ENCOUNTER 2016-12-31 16:37 | Inpatient (IN) | payer OTHER ==
[~2016-12-31] VITALS: Ht 182.9 cm; Wt 105.0 kg
[~2016-12-31 16:37] MED LIST changes: +CARB25TA12 PO; -GLC/500 PO; -TRIA37.5 PO; +TRIATAB3 PO; +ZNTT/150 PO
[2016-12-31] MEDS ORDERED: SODIUM CHLORIDE 0.9% 1000ML 500 ML IV STA (17:01)
[2016-12-31] MEDS ORDERED: ONDANSETRON INJ 2 MG/ML 2 ML VIAL IV STA (17:01)
--- NOTE | 2016-12-31 17:19 | EMERGENCY ROOM VISIT NOTE ---
History Report prepared by Evelia: Michael Everett Under the Supervision of: Dr. Darío Dangelo M.D. First contact with patient: 16:51 Chief Complaint: GI ASSESSMENT Stated Complaint: S/P SURGERY- UPSET STOMACH, DISTENDED BELLY Nursing Triage Summary: Pt had surgery for "sigmoid volvolus with colectomy" here, was discharged on 12/28. Unwitnessed fall yesterday at 0100, low appetite, distended abdomen, nausea, dry heaves, and weakness since then. History of Present Illness The patient is a 76 year old male who presents to the Emergency Room with complaints of a sudden fall that occurred yesterday at 0100. 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 He states that he was discharged and felt fine following his admission. The patient states that yesterday at 0100 he lost his balance because he has been "having trouble with balance" for the last couple of months. He states that he fell backwards but did not have any pain or injury following the incident. The patient states that since the fall he has been experiencing abdominal bloating similar to his symptoms at the end of November, he has also had indigestion the last few days. He states that his abdomen has been hard and he is not able to "suck in his stomach". The patient is accompanied by his daughter who states that he has been experiencing a lack of appetite starting yesterday. She states that she gave him toast and tapioca pudding today, but denies any relief of symptoms. His daughter states that he has been experiencing nausea, dry heaving, burping, and vomiting today. She states that his episode of vomiting occurred about two hours prior to arrival and describes it as "slimy". The patient's daughter states he had a bowel movement and had a small accidental bowel movement before arrival to the ED. She reports that he forgot to take his indigestion medication yesterday, but she gave him two pills today. He denies any cough, fever, abdominal pain, and urinary symptoms. Source of History: patient, family Onset: 99 yesterday Position: other (global) Timing: other Associated Symptoms: + nausea, + vomiting, No fevers, No cough, No abdominal pain, No urinary symptoms Review of Systems See HPI for pertinent positives & negatives. A total of 10 systems reviewed and were otherwise negative. Past Medical & Surgical Medical Problems: (1) BENIGN HYPERTENSION (2) DIAB W KETOACIDOSIS, TYPE II OR UNSPEC TYPE, UNCONTROLLED (3) DIVERTICULOSIS COLON (W/O MENT OF HEMORRHAGE) (4) GOUT NOS (5) IDIO PERIPH NEURPTHY NOS (6) Ileus following gastrointestinal surgery (7) Mesenteric venous thrombosis (8) MIXED HYPERLIPIDEMIA (9) Volvulus Family History Diabetes mellitus FH: breast cancer Social History Smoking Status: Former Smoker Alcohol Use: none Drug Use: none Marital Status: , Housing Status: lives with significant other Occupation Status: retired Current/Historical Medications Scheduled Allopurinol (Zyloprim), 300 MG PO DAILY Aspirin (Aspirin Ec), 81 MG PO DAILY Carbidopa/Levodopa (Sinemet 25MG/100MG), 1.5 TAB PO TID Cholecalciferol (Vitamin D3), 2,000 UNITS PO DAILY Cyanocobalamin (Vitamin B12), 1,000 MCG PO DAILY Gabapentin (Neurontin), 300 MG PO QID Ranitidine (Zantac), 150 MG PO BID Sertraline (Zoloft), 1 TAB PO DAILY Triamterene/Hctz (Triamterene/Hctz 37.5-25MG), 0.5 TAB PO DAILY Scheduled PRN Clonazepam (Klonopin), 0.25-0.5 MG PO HS PRN for Sleep Miconazole Nitrate (Desenex Shake Powder), 1 APPLN EXT BID PRN for Affected Skin Folds Ondansetron Hcl (Zofran), 4 MG PO q6hrs PRN for Nausea Polyethylene Glycol 3350 (Bulk (Polyethylene Glycol 3350), 17 GM PO DAILY PRN for Constipation Allergies Coded Allergies: No Known Allergies (Verified , 07/11/16) Physical Exam Vital Signs Date Time Temp Pulse Resp B/P (MAP) Pulse Ox O2 Delivery O2 Flow Rate FiO2 12/31/16 20:01 74 20 127/74 96 Room Air 12/31/16 18:22 71 22 135/71 96 Room Air 12/31/16 17:24 77 12/31/16 16:45 36.8 84 16 129/67 93 Room Air Physical Exam GENERAL: Patient is in no acute distress. HEENT: No acute trauma, normocephalic atraumatic, mucous membranes moist, no nasal congestion, no scleral icterus. NECK: No stridor, no adenopathy, no meningismus, trachea is midline. LUNGS: Crackles at right base, breath sounds otherwise clear and equal. HEART: Without murmurs gallops or rubs, regular rate and rhythm. ABDOMEN: Abdominal distension present, hyperactive bowel sounds, tympany with percussion, no peritonitis, midline surgical incision with melvin, no signs of wound infection. EXTREMITIES: No cyanosis or edema, full range of motion of all the joints without pain or difficulty, no signs for acute trauma. NEUROLOGIC: Oriented x 3, no acute motor or sensory deficits, no focal weakness. SKIN: No rash, no jaundice, no diaphoresis. Medical Decision & Procedures ER Provider Diagnostic Interpretation: Radiology results as stated below per my review and radiologist interpretation: CHEST ONE VIEW PORTABLE CLINICAL HISTORY: Abdominal pain. COMPARISON STUDY: Chest radiograph December 16, 2016. FINDINGS: Lung volumes are diminished. A calcific density projecting of the right lower lung is unchanged. There is no pneumothorax or pleural effusion. Mild cardiomegaly is unchanged. There is no evidence of pulmonary edema. The appearance of the chest is unchanged. Minimal bibasilar opacities favor atelectasis. Prominent gas-filled loops of bowel are noted, the largest of which within the right upper quadrant. IMPRESSION: 1. No acute cardiopulmonary findings. 2. Left basilar opacity suggestive of atelectasis. 3. Partially visualized dilated loops of bowel, likely reflecting colonic distention, within the upper abdomen. This can be assessed on subsequent CT. Electronically signed by: Kentrell Rivera M.D. 12/31/2016 5:41 PM Dictated Date/Time: 12/31/2016 5:[address] OF THE ABDOMEN AND PELVIS WITH CONTRAST CLINICAL HISTORY: Abdominal pain status post surgery. Possible obstruction. COMPARISON STUDY: CT of the abdomen and pelvis December 14, 2016 and KUB December 22, 2016. TECHNIQUE: Following IV administration of 115 mL of Optiray-320, axial images of the abdomen and pelvis were obtained from the lung bases to the proximal femurs. Images were reviewed in the axial, sagittal, and coronal planes. IV contrast was administered without complication. A dose lowering technique was utilized adhering to the principles of ALARA. CT DOSE: 811.32 mGy.cm FINDINGS: Visualized portions of the lower lungs demonstrate linear and ground glass opacities which favor atelectasis. No pneumatosis, free air or portal venous gas is present. The liver, spleen, adrenal glands and pancreas are unremarkable. The right kidney is within normal limits. A left renal cyst is noted. There is no hydronephrosis. There is a suspected subcentimeter cyst arising from the upper pole of the left kidney. There are findings consistent with a remote right hemicolectomy and a recent sigmoid resection. There is mild infiltration within the operative bed. Note is made of a 4.4 x 2.4 cm suspected fluid collection immediately superior to the sigmoid anastomosis. This has minimal peripheral enhancement and mild adjacent infiltration. No additional fluid collections are identified on this exam. The colon is moderately dilated but no transition point is identified. There is no evidence for a small bowel obstruction. Surgical skin melvin from laparotomy are noted. There is a moderate amount of poorly formed stool within the distal colon and rectum. Gas within the bladder is likely from recent instrumentation. Note is made of a probable filling defect within a mesenteric vein which drains into the superior mesenteric vein. This vein is shown best on axial image 227 of 511. No suspicious osseous lesions are present. IMPRESSION: 1. Findings consistent with recent sigmoid resection. 4.4 x 2.4 cm fluid collection immediately superior to the sigmoid anastomosis with mild peripheral enhancement and associated infiltration. This fluid collection is nonspecific could reflect a resolving hematoma or abscess. 2. Probable filling defect within a left mesenteric vein which drains into the superior mesenteric vein. This suggests mesenteric venous thrombus. 3. Moderate colonic distention without convincing evidence for a bowel obstruction. Electronically signed by: Kentrell Rivera M.D. 12/31/2016 6:52 PM Dictated Date/Time: 12/31/2016 6:36 PM Laboratory Results 12/31/16 17:10 Red Blood Count 3.99, Mean Corpuscular Volume 94.5, Mean Corpuscular Hemoglobin 30.1, Mean Corpuscular Hemoglobin Concent 31.8, Mean Platelet Volume 10.0, Neutrophils (%) (Auto) 77.9, Lymphocytes (%) (Auto) 9.3, Monocytes (%) (Auto) 11.8, Eosinophils (%) (Auto) 0.3, Basophils (%) (Auto) 0.1, Neutrophils # (Auto ) 9.68, Lymphocytes # (Auto) 1.15, Monocytes # (Auto) 1.47, Eosinophils # (Auto ) 0.04, Basophils # (Auto) 0.01 12/31/16 17:10 Test 12/31/16 17:10 White Blood Count 12.42 K/uL (4.8-10.8) Red Blood Count 3.99 M/uL (4.7-6.1) Hemoglobin 12.0 g/dL (14.0-18.0) Hematocrit 37.7 % (42-52) Mean Corpuscular Volume 94.5 fL (80-100) Mean Corpuscular Hemoglobin 30.1 pg (25-34) Mean Corpuscular Hemoglobin Concent 31.8 g/dl (32-36) Platelet Count 455 K/uL (130-400) Mean Platelet Volume 10.0 fL (7.4-10.4) Neutrophils (%) (Auto) 77.9 % Lymphocytes (%) (Auto) 9.3 % Monocytes (%) (Auto) 11.8 % Eosinophils (%) (Auto) 0.3 % Basophils (%) (Auto) 0.1 % Neutrophils # (Auto) 9.68 K/uL (1.4-6.5) Lymphocytes # (Auto) 1.15 K/uL (1.2-3.4) Monocytes # (Auto) 1.47 K/uL (0.11-0.59) Eosinophils # (Auto) 0.04 K/uL (0-0.5) Basophils # (Auto) 0.01 K/uL (0-0.2) RDW Standard Deviation 48.1 fL (36.4-46.3) RDW Coefficient of Variation 14.0 % (11.5-14.5) Immature Granulocyte % (Auto) 0.6 % Immature Granulocyte # (Auto) 0.07 K/uL (0.00-0.02) Red Blood Cell Morphology Unremarkable Prothrombin Time 11.7 SECONDS (9.0-12.0) Prothromb Time International Ratio 1.1 (0.9-1.1) Activated Partial Thromboplast Time 25.4 SECONDS (21.0-31.0) Partial Thromboplastin Ratio 1.0 Anion Gap 6.0 mmol/L (3-11) Est Creatinine Clear Calc Drug Dose 71.6 ml/min Estimated GFR () 75.2 Estimated GFR (Non- 64.9 BUN/Creatinine Ratio 14.4 (10-20) Calcium Level 9.0 mg/dl (8.5-10.1) Total Bilirubin 0.7 mg/dl (0.2-1) Aspartate Amino Transf (AST/SGOT) 17 U/L (15-37) Alanine Aminotransferase (ALT/SGPT) 10 U/L (12-78) Alkaline Phosphatase 103 U/L (45-117) Troponin I < 0.015 ng/ml (0-0.045) Total Protein 7.7 gm/dl (6.4-8.2) Albumin 3.2 gm/dl (3.4-5.0) Globulin 4.5 gm/dl (2.5-4.0) Albumin/Globulin Ratio 0.7 (0.9-2) Lipase 418 U/L (73-393) Laboratory results reviewed by me. Medications Administered Medications (Trade) Dose Ordered Sig/[place]ster Route Start Time Stop Time Status Last Admin Dose Admin Sodium Chloride 500 ml @ 999 mls/hr Q31M STAT IV 12/31/16 17:01 12/31/16 17:31 DC 12/31/16 17:31 999 MLS/HR Ondansetron HCl (Zofran Inj) 4 mg NOW STAT IV 12/31/16 17:01 12/31/16 17:04 DC 12/31/16 17:31 4 MG ECG Indication: other (falling incident) Rate (beats per minute): 77 Rhythm: normal sinus Findings: no acute ischemic change, no ectopy, other (LVH present) ED Course 3: The patient was evaluated in room C05. A complete history and physical exam was performed. 1700: Zofran Injection 4 mg IV, Sodium Chloride 500 ml @ 999 mls/hr IV. 0: I discussed the patient's case with Dr. Mcghee, [facility]. 1915: I reevaluated the patient and he is resting comfortably. I updated him on his results and discussed his treatment plan. He agrees to admission. 1917: I discussed the patient's case with Dr. Carmen Orozco, [facility] Hospitalist. She understands the patient's condition and agrees to accept the patient. The patient will be further evaluated. Medical Decision The patient is a 76 year old male who presents to the ED with complaints of a sudden fall that occurred 0100 yesterday. Differential diagnoses considered include ileus or bowel obstruction, constipation, abscess, dehydration, electrolyte imbalance, pneumonia, cardiac ischemia, hernia or peritonitis, and wound infection. There is a mild leukocytosis which could be consistent with his vomiting or possibly infection. No worrisome anemia. No significant electrolyte abnormality, kidney failure or hepatitis. Lipase mildly elevated but not truly high enough to diagnose pancreatitis. Urinalysis does not show infection. EKG shows a normal sinus rhythm, no acute ischemia. Cardiac enzyme testing 1 is not consistent with acute cardiac injury. Chest x-ray shows no free air or pneumonia. Abdominal and pelvis CT shows colonic air, no bowel obstruction. There was a presumed hematoma in the area of his recent colonic surgery. No abscess noted. There was mention of a possible filling defect in one of the mesenteric veins. The patient was not having pain, he was not in distress. He received IV Zofran for nausea and IV saline. I discussed the case with the on-call surgeon. Admission/observation was felt warranted. The patient understands the need for the hospital stay. I did speak to case management and the on-call hospitalist was consulted. In short, the patient appears to have a colonic ileus as a cause for his presentation. Medication Reconcilliation Current Medication List: was personally reviewed by me Blood Pressure Screening Patient's blood pressure: Elevated blood pressure Blood pressure disposition: Elevated BP felt to be situational Consults Time Called: 1899 Consulting Physician[facility] Returned Call: 1899 I discussed the patient's case with Dr. Mcghee [facility]. He reports that the patient may be admitted. Additional Consults: Time Called: 1917 Consulted Physician: Dr. Carmen Orozco, [facility] Hospitalist Returned Call: 1917 Additional Comments: I discussed the patient's case with Dr. Carmen Orozco, [facility] Hospitalist. She understands the patient's condition and agrees to accept the patient. The patient will be further evaluated. Impression Primary Impression: Vomiting Additional Impressions: Abdominal distension Status post partial colectomy Scribe Attestation The scribe's documentation has been prepared under my direction and personally reviewed by me in its entirety. I confirm that the note above accurately reflects all work, treatment, procedures, and medical decision making performed by me. Departure Information Dispostion Being Evaluated By Hospitalist (Dr. Carmen Orozco) Referrals John Rayo M.D. (PCP) Patient Instructions My [facility] Problem Qualifiers
[2016-12-31 17:28] LABS: HEMATOCRIT 37.7 % (42-52); MEAN CELL VOLUME 94.5 fL (80-100); MEAN CORPUSCULAR HEMOGLOBIN 30.1 pg (25-34); MEAN CORPUSCULAR HGB CONC 31.8 g/dl (32-36); PLATELET COUNT 455 K/uL (130-400); RED BLOOD COUNT 3.99 M/uL (4.7-6.1); WHITE BLOOD COUNT 12.42 K/uL (4.8-10.8)
[2016-12-31 17:35] LABS: INR 1.1 (0.9-1.1); PROTHROMBIN TIME (PATIENT) 11.7 SECONDS (9.0-12.0)
[2016-12-31 17:38] LABS: ALT/SGPT 10 U/L (12-78); BLOOD UREA NITROGEN 16 mg/dl (7-18); BUN/CREATININE RATIO 14.4 (10-20); CARBON DIOXIDE 27 mmol/L (21-32); CHLORIDE 102 mmol/L (98-107); GLUCOSE 153 mg/dl (70-99); SODIUM 135 mmol/L (136-145)
[2016-12-31 17:43] LABS: ALB/GLOB RATIO 0.7 (0.9-2); ALKALINE PHOSPHATASE 103 U/L (45-117); AST/SGOT 17 U/L (15-37)
--- NOTE | 2016-12-31 17:43 | DIAGNOSTIC IMAGING REPORT ---
CHEST ONE VIEW PORTABLE CLINICAL HISTORY: Abdominal pain. COMPARISON STUDY: Chest radiograph December 16, 2016. FINDINGS: Lung volumes are diminished. A calcific density projecting of the right lower lung is unchanged. There is no pneumothorax or pleural effusion. Mild cardiomegaly is unchanged. There is no evidence of pulmonary edema. The appearance of the chest is unchanged. Minimal bibasilar opacities favor atelectasis. Prominent gas-filled loops of bowel are noted, the largest of which within the right upper quadrant. IMPRESSION: 1. No acute cardiopulmonary findings. 2. Left basilar opacity suggestive of atelectasis. 3. Partially visualized dilated loops of bowel, likely reflecting colonic distention, within the upper abdomen. This can be assessed on subsequent CT. Electronically signed by: Kentrell Rivera M.D. 12/31/2016 5:41 PM Dictated Date/Time: 12/31/2016 5:38 PM
[2016-12-31] MEDS ORDERED: OPTIRAY 320 IV PRN (18:00)
[2016-12-31 18:29] LABS: BASO % 0.1 %; BASO ABS # 0.01 K/uL (0-0.2); COMPLETE YES; EOS % 0.3 %; IG% 0.6 %; LYMPH % 9.3 %; LYMPH ABS # 1.15 K/uL (1.2-3.4); MONO % 11.8 %; NEUT % 77.9 %
--- NOTE | 2016-12-31 18:53 | DIAGNOSTIC IMAGING REPORT ---
CT OF THE ABDOMEN AND PELVIS WITH CONTRAST CLINICAL HISTORY: Abdominal pain status post surgery. Possible obstruction. COMPARISON STUDY: CT of the abdomen and pelvis December 14, 2016 and KUB December 22, 2016. TECHNIQUE: Following IV administration of 115 mL of Optiray-320, axial images of the abdomen and pelvis were obtained from the lung bases to the proximal femurs. Images were reviewed in the axial, sagittal, and coronal planes. IV contrast was administered without complication. A dose lowering technique was utilized adhering to the principles of ALARA. CT DOSE: 811.32 mGy.cm FINDINGS: Visualized portions of the lower lungs demonstrate linear and ground glass opacities which favor atelectasis. No pneumatosis, free air or portal venous gas is present. The liver, spleen, adrenal glands and pancreas are unremarkable. The right kidney is within normal limits. A left renal cyst is noted. There is no hydronephrosis. There is a suspected subcentimeter cyst arising from the upper pole of the left kidney. There are findings consistent with a remote right hemicolectomy and a recent sigmoid resection. There is mild infiltration within the operative bed. Note is made of a 4.4 x 2.4 cm suspected fluid collection immediately superior to the sigmoid anastomosis. This has minimal peripheral enhancement and mild adjacent infiltration. No additional fluid collections are identified on this exam. The colon is moderately dilated but no transition point is identified. There is no evidence for a small bowel obstruction. Surgical skin melvin from laparotomy are noted. There is a moderate amount of poorly formed stool within the distal colon and rectum. Gas within the bladder is likely from recent instrumentation. Note is made of a probable filling defect within a mesenteric vein which drains into the superior mesenteric vein. This vein is shown best on axial image 227 of 511. No suspicious osseous lesions are present. IMPRESSION: 1. Findings consistent with recent sigmoid resection. 4.4 x 2.4 cm fluid collection immediately superior to the sigmoid anastomosis with mild peripheral enhancement and associated infiltration. This fluid collection is nonspecific could reflect a resolving hematoma or abscess. 2. Probable filling defect within a left mesenteric vein which drains into the superior mesenteric vein. This suggests mesenteric venous thrombus. 3. Moderate colonic distention without convincing evidence for a bowel obstruction. Electronically signed by: Kentrell Rivera M.D. 12/31/2016 6:52 PM Dictated Date/Time: 12/31/2016 6:36 PM
[2016-12-31 20:57] VITALS: BP 127/74; PULSE 74; TEMP 36.8; O2SAT 99; Ht 182.9 cm; Wt 105.0 kg
[2016-12-31 21:02] LABS: URINE APPEARANCE CLEAR (CLEAR); URINE BILIRUBIN NEG (NEG); URINE COLOR YELLOW; URINE NITRITE NEG (NEG); URINE SPECIFIC GRAVITY 1.041 (1.000-1.030); UROBILINOGEN NEG (NEG); ZZUR CULT IF INDIC CLEAN CATCH NO
[2016-12-31 21:03] LABS: MANUAL MICROSCOPIC REQUIRED? NO; REVIEW REQ? NO
[2016-12-31 21:13] VITALS: O2SAT 98
[2016-12-31 21:30] VITALS: BP 173/78; PULSE 73; TEMP 36.6; O2SAT 99
[2016-12-31] MEDS ORDERED: IV FLUIDS COMPLETED PRN (21:30)
[2016-12-31] MEDS ORDERED: CLONAZEPAM 0.5 MG TAB PO PRN (22:45)
[2016-12-31] MEDS ORDERED: ONDANSETRON 4 MG TAB PO PRN (22:45)
[2016-12-31] MEDS ORDERED: POLYETHYLENE (MIRALAX) 17 GM PACK PO PRN (22:45)
[2016-12-31 23:01] VITALS: BP 132/67; PULSE 71; TEMP 36.7; O2SAT 97
--- NOTE | 2016-12-31 23:12 | History and Physical ---
History & Physical Date & Time of Service: Dec 31, 2016 at 22:42 Chief Complaint: Ileus Following Gastrointestinal Sugery,Mesenteric Primary Care Physician: John Rayo M.D. History of Present Illness Source: patient, family Patient's history was primarily taken from his daughter Victoria The patient is a 76 yo m with a history of DMII ( no meds), Parkinson's and HTN with a recent history of sigmoidectomy (november 2016) secondary to volvulus done by Dr Ayala. The patient was discharged home after surgery and patient was tolerating PO at that time. Patient was d/c on December 28. Approx 2 days prior to admission the patient started to suffer from a sensation of abdominal discomfort but not pain. He notes that " I just did not feel well." He also had a poor appetite on that day. This morning he had worsening abdominal discomfort and was unable to tolerate anything oral. He had nausea throughout the day and one episode of vomitus. The daughter was concerned because these symptoms were similar to the previous time he was admitted to the hospital and vomiting resulted in an aspiration pneumonia. She also notes that she had a lot of concern because over the past 24 hour he has had significant worsening distention of his abdomen. The patient repeatedly denied every having any pain. Last BM was night before and was WNL without blood/ black stool. He has been unable to take any of his medications because of poor appetite. He was evaluated in the ED by the ED physician and Dr Mcghee was consulted. He had advised NPO status and reevaluation in the morning. Imaging did reveal distention without obstruction but also a filling defect concerning for a mesenteric thrombosis. Past Medical/Surgical History HTN LEN on CPAP DMII no medications Gout Gastroparesis Anxiety Depression Parkinson RLS Polypectomy of colon; benign s/p sigmoidectomy H/O DVT/ PE 2013 s/p Right knee replacement Family History Diabetes mellitus FH: breast cancer Social History Smoking Status: Former Smoker Smokeless Tobacco Use: No Alcohol Use: none Drug Use: none Marital Status: , Housing status: lives with family Occupational Status: retired Immunizations History of Influenza Vaccine: Unknown History of Tetanus Vaccine?: Unknown History of Pneumococcal: Unknown History of Hepatitis B Vaccine: Unknown Multi-Drug Resistant Organisms History of MDRO: No Allergies Coded Allergies: No Known Allergies (Verified , 07/11/16) Home Medications Scheduled Allopurinol (Zyloprim), 300 MG PO DAILY Aspirin (Aspirin Ec), 81 MG PO DAILY Carbidopa/Levodopa (Sinemet 25MG/100MG), 1.5 TAB PO TID Cholecalciferol (Vitamin D3), 2,000 UNITS PO DAILY Cyanocobalamin (Vitamin B12), 1,000 MCG PO DAILY Gabapentin (Neurontin), 300 MG PO QID Ranitidine (Zantac), 150 MG PO BID Sertraline (Zoloft), 1 TAB PO DAILY Triamterene/Hctz (Triamterene/Hctz 37.5-25MG), 0.5 TAB PO DAILY Scheduled PRN Clonazepam (Klonopin), 0.25-0.5 MG PO HS PRN for Sleep Miconazole Nitrate (Desenex Shake Powder), 1 APPLN EXT BID PRN for Affected Skin Folds Ondansetron Hcl (Zofran), 4 MG PO q6hrs PRN for Nausea Polyethylene Glycol 3350 (Bulk (Polyethylene Glycol 3350), 17 GM PO DAILY PRN for Constipation Review of Systems Constitutional: No fever Eyes: No worsening of vision ENT: No hearing loss Respiratory: No cough, No shortness of breath, No dyspnea at rest Cardiovascular: No chest pain Abdomen: + nausea, + vomiting, + problem reported (distention), No pain, No diarrhea, No constipation Musculoskeletal: No joint pain, No muscle pain Genitourinary - Male: No hematuria, No dysuria Neurologic: + balance problems, No weakness, No numbness/tingling Psychiatric: No depression symptoms Endocrine: No fatigue Hematologic / Lymphatic: No abnormal bleeding/bruising Integumentary: No rash Physical Exam Vital Signs Date Time Temp Pulse Resp B/P (MAP) Pulse Ox O2 Delivery O2 Flow Rate FiO2 12/31/16 21:30 36.6 73 20 173/78 (109) 99 Room Air 12/31/16 21:13 70 20 151/70 98 Room Air 12/31/16 20:57 36.8 74 20 127/74 99 Room Air 12/31/16 20:01 74 20 127/74 96 Room Air 12/31/16 18:22 71 22 135/71 96 Room Air 12/31/16 17:24 77 12/31/16 16:45 36.8 84 16 129/67 93 Room Air General Appearance: no apparent distress Head: normocephalic, atraumatic Eyes: normal inspection ENT: normal ENT inspection, + pertinent finding (moist mucus membranes) Neck: supple Respiratory/Chest: normal breath sounds, no respiratory distress, no accessory muscle use Cardiovascular: regular rate, rhythm, no JVD, no murmur, normal peripheral pulses, + pertinent finding (EUSEBIO stockings in place) Abdomen/GI: normal bowel sounds, non tender, + distended Back: normal inspection, no CVA tenderness Extremities/Musculoskelatal: normal inspection, no calf tenderness, no pedal edema Neurologic/Psych: alert, oriented x 3, + pertinent finding (flat affect) Skin: normal color, warm/dry, no rash Lymphatic: no adenopathy Diagnostics Laboratory Results Results Past 24 Hours Test 12/31/16 17:10 12/31/16 20:55 Range/Units White Blood Count 12.42 4.8-10.8 K/uL Red Blood Count 3.99 4.7-6.1 M/uL Hemoglobin 12.0 14.0-18.0 g/dL Hematocrit 37.7 42-52 % Mean Corpuscular Volume 94.5 80-100 fL Mean Corpuscular Hemoglobin 30.1 25-34 pg Mean Corpuscular Hemoglobin Concent 31.8 32-36 g/dl Platelet Count 455 130-400 K/uL Mean Platelet Volume 10.0 7.4-10.4 fL Neutrophils (%) (Auto) 77.9 % Lymphocytes (%) (Auto) 9.3 % Monocytes (%) (Auto) 11.8 % Eosinophils (%) (Auto) 0.3 % Basophils (%) (Auto) 0.1 % Neutrophils # (Auto) 9.68 1.4-6.5 K/uL Lymphocytes # (Auto) 1.15 1.2-3.4 K/uL Monocytes # (Auto) 1.47 0.11-0.59 K/uL Eosinophils # (Auto) 0.04 0-0.5 K/uL Basophils # (Auto) 0.01 0-0.2 K/uL RDW Standard Deviation 48.1 36.4-46.3 fL RDW Coefficient of Variation 14.0 11.5-14.5 % Immature Granulocyte % (Auto) 0.6 % Immature Granulocyte # (Auto) 0.07 0.00-0.02 K/uL Red Blood Cell Morphology Unremarkable Prothrombin Time 11.7 9.0-12.0 SECONDS Prothromb Time International Ratio 1.1 0.9-1.1 Activated Partial Thromboplast Time 25.4 21.0-31.0 SECONDS Partial Thromboplastin Ratio 1.0 Sodium Level 135 136-145 mmol/L Potassium Level 4.0 3.5-5.1 mmol/L Chloride Level 102 98-107 mmol/L Carbon Dioxide Level 27 21-32 mmol/L Anion Gap 6.0 3-11 mmol/L Blood Urea Nitrogen 16 7-18 mg/dl Creatinine 1.10 0.60-1.40 mg/dl Est Creatinine Clear Calc Drug Dose 71.6 ml/min Estimated GFR () 75.2 Estimated GFR (Non- 64.9 BUN/Creatinine Ratio 14.4 10-20 Random Glucose 153 70-99 mg/dl Calcium Level 9.0 8.5-10.1 mg/dl Total Bilirubin 0.7 0.2-1 mg/dl Aspartate Amino Transf (AST/SGOT) 17 15-37 U/L Alanine Aminotransferase (ALT/SGPT) 10 12-78 U/L Alkaline Phosphatase 103 45-117 U/L Troponin I < 0.015 0-0.045 ng/ml Total Protein 7.7 6.4-8.2 gm/dl Albumin 3.2 3.4-5.0 gm/dl Globulin 4.5 2.5-4.0 gm/dl Albumin/Globulin Ratio 0.7 0.9-2 Lipase 418 73-393 U/L Urine Color YELLOW Urine Appearance CLEAR CLEAR Urine pH 6.0 4.5-7.5 Urine Specific [place] 1.041 1.000-1.030 Urine Protein NEG NEG Urine Glucose (UA) NEG NEG Urine Ketones NEG NEG Urine Occult Blood NEG NEG Urine Nitrite NEG NEG Urine Bilirubin NEG NEG Urine Urobilinogen NEG NEG Urine Leukocyte Esterase NEG NEG Diagnostic Radiology CT OF THE ABDOMEN AND PELVIS WITH CONTRAST CLINICAL HISTORY: Abdominal pain status post surgery. Possible obstruction. COMPARISON STUDY: CT of the abdomen and pelvis December 14, 2016 and KUB December 22, 2016. TECHNIQUE: Following IV administration of 115 mL of Optiray-320, axial images of the abdomen and pelvis were obtained from the lung bases to the proximal femurs. Images were reviewed in the axial, sagittal, and coronal planes. IV contrast was administered without complication. A dose lowering technique was utilized adhering to the principles of ALARA. CT DOSE: 811.32 mGy.cm FINDINGS: Visualized portions of the lower lungs demonstrate linear and ground glass opacities which favor atelectasis. No pneumatosis, free air or portal venous gas is present. The liver, spleen, adrenal glands and pancreas are unremarkable. The right kidney is within normal limits. A left renal cyst is noted. There is no hydronephrosis. There is a suspected subcentimeter cyst arising from the upper pole of the left kidney. There are findings consistent with a remote right hemicolectomy and a recent sigmoid resection. There is mild infiltration within the operative bed. Note is made of a 4.4 x 2.4 cm suspected fluid collection immediately superior to the sigmoid anastomosis. This has minimal peripheral enhancement and mild adjacent infiltration. No additional fluid collections are identified on this exam. The colon is moderately dilated but no transition point is identified. There is no evidence for a small bowel obstruction. Surgical skin melvin from laparotomy are noted. There is a moderate amount of poorly formed stool within the distal colon and rectum. Gas within the bladder is likely from recent instrumentation. Note is made of a probable filling defect within a mesenteric vein which drains into the superior mesenteric vein. This vein is shown best on axial image 227 of 511. No suspicious osseous lesions are present. IMPRESSION: 1. Findings consistent with recent sigmoid resection. 4.4 x 2.4 cm fluid collection immediately superior to the sigmoid anastomosis with mild peripheral enhancement and associated infiltration. This fluid collection is nonspecific could reflect a resolving hematoma or abscess. 2. Probable filling defect within a left mesenteric vein which drains into the superior mesenteric vein. This suggests mesenteric venous thrombus. 3. Moderate colonic distention without convincing evidence for a bowel obstruction. CHEST ONE VIEW PORTABLE CLINICAL HISTORY: Abdominal pain. COMPARISON STUDY: Chest radiograph December 16, 2016. FINDINGS: Lung volumes are diminished. A calcific density projecting of the right lower lung is unchanged. There is no pneumothorax or pleural effusion. Mild cardiomegaly is unchanged. There is no evidence of pulmonary edema. The appearance of the chest is unchanged. Minimal bibasilar opacities favor atelectasis. Prominent gas-filled loops of bowel are noted, the largest of which within the right upper quadrant. IMPRESSION: 1. No acute cardiopulmonary findings. 2. Left basilar opacity suggestive of atelectasis. 3. Partially visualized dilated loops of bowel, likely reflecting colonic distention, within the upper abdomen. This can be assessed on subsequent CT. EKG Normal sinus rhythm Voltage criteria for left ventricular hypertrophy Abnormal ECG When compared with ECG of 24-DEC-2016 12:15, Premature atrial complexes are no longer Present Impression Assessment and Plan This is a 76 yo m with a recent history of sigmoidectomy secondary to volvulus suffering from colonic distention and a possible mesenteric venous thrombosis. Abdominal pain secondary to colonic distention; s/p sigmoidectomy - currently NPO, if there is no improvement/ worsening of distention will place NG tube - Consult general surgery - continue home ranitidine once tolerating PO Possible mesenteric venous thrombosis - Patient has recently had CT abd with contrast so will attempt to visualize flow of mesenteric arteries and this possible venous thrombosis with US mesenteric - continue to monitor for abdominal pain - recheck CMP in the am HTN - Continue triamterene/ HCTZ PO once able to tolerate PO - will have hydralazine prn for systolic > 180 DMII - patient has been of his medications for Dm - will monitor the BSG and if the patient has consistently elevated BSG will add a sliding scale Parkinson's - Continue Sinemet once tolerating PO Anxiety - typically uses clonazepam if using CPAP because of claustrophobia Depression - continue Zoloft once PO LEN - daughter will bring CPAP from home Gout continue allopurinol DVT Prophylaxis - due to uncertainty for need for intervention will place on SCD Attending Addendum: I have physically seen and examined this patient, have supervised the medical residents activities, and agree with the H&P as noted above with the following exceptions as noted. The patient denies chest pain, palpitations, cough, lower extremity swelling, vision change, hearing change, sore throat, fevers, chills, sweats, blood in urine or stool, dysuria, urinary frequency or urgency, lightheadedness, dizziness, headache, memory loss, rash, abnormal bruising or bleeding, imbalance , focal or generalized weakness, numbness or tingling in arms or legs, generalized arthralgias or myalgias, back or neck pain, night sweats, or allergy symptoms. The review of systems is otherwise negative other than for that already noted above, and at least 10 systems have been reviewed. The patient is awake, well-developed and adequately nourished, alert and oriented 3, normocephalic and atraumatic, lying in bed and in no acute distress. HEENT--PERRL, EOMI, mucous membranes and oropharynx dry. Neck--supple, no JVD or bruits, thyroid normal, trachea midline, no adenopathy. Heart--normal S1 and S2, no extra beats, no murmurs, rubs or gallops. Lungs--clear bilaterally with good air movement, no respiratory distress, no accessory muscle use. Abdomen--normal bowel sounds and soft, mild tenderness and mildly distended, no hernias or masses, no organomegaly. Extremities--no cyanosis, clubbing or edema. There are good distal pulses b/l. Dermatologic--normal skin turgor, normal color, warm and dry, no abnormal lymph nodes, no rash. Neurologic--cranial nerves II through XII grossly intact, motor and sensory examination normal. Rheumatologic--normal range of motion, nontender, muscles and joints. Psychiatric--normal affect. Assessment and Plan: 1. Abdominal pain/colonic distention/status post sigmoidectomy during admission from 12/14--12/28. Patient be admitted to the medical surgical floor for observation. Consult Dr. Ayala from general surgery who performed the surgery. Nothing by mouth except medications. 2. Possible mesenteric vein thrombosis--brought to question during CT of abdomen and pelvis with contrast. Unable to perform CTA due to previous dye, we'll therefore order mesenteric venous Dopplers for now, may need CTA later. Patient does have a history of DVT and PE has been off anticoagulation. Order lower extremity venous Dopplers. 3. Hypertension--hold triamterene/HCTZ. Place on hydralazine 10 mg IV every 4 hours when necessary systolic blood pressure greater than 180. 4. Obstructive sleep apnea--patient will use CPAP from home. Level of Care Med/Surg Advanced Directives Existing Advance Directive: No Existing Living Will: No Existing Power of Industrial Radiographer: Yes VTE Prophylaxis VTE Risk Assessment Done? Y/N: Yes Risk Level: Moderate Given or contraindicated: SCD's Social Service Consult None Apply Note Total Time: Critical Care 30 - 74 minutes Additional Copies To John Rayo M.D.
[2016-12-31] MEDS: SODIUM CHLORIDE 0.9% 1000ML 1,000 ML IV SCH (23:17)
[2016-12-31] MEDS ORDERED: HydrALAZINE HCL 20 MG/ML VIAL IV. PRN (23:30)
[2017-01-01] MEDS: SODIUM CHLORIDE 0.9% 1000ML 1,000 ML IV SCH ×3 (05:44→20:42)
[2017-01-01 06:14] LABS: BASO % 0.1 %; BASO ABS # 0.01 K/uL (0-0.2); COMPLETE YES; EOS % 1.5 %; HEMATOCRIT 34.1 % (42-52); IG% 0.6 %; LYMPH ABS # 1.38 K/uL (1.2-3.4); MEAN CELL VOLUME 95.5 fL (80-100); MEAN CORPUSCULAR HEMOGLOBIN 30.3 pg (25-34); MEAN CORPUSCULAR HGB CONC 31.7 g/dl (32-36); NEUT % 66.8 %; PLATELET COUNT 394 K/uL (130-400); RED BLOOD COUNT 3.57 M/uL (4.7-6.1); WHITE BLOOD COUNT 9.85 K/uL (4.8-10.8)
[2017-01-01 06:46] LABS: BUN/CREATININE RATIO 12.1 (10-20); CALCIUM 8.6 mg/dl (8.5-10.1); POTASSIUM 3.6 mmol/L (3.5-5.1)
[2017-01-01 06:48] LABS: ALB/GLOB RATIO 0.7 (0.9-2)
[2017-01-01 07:06] VITALS: BP 147/71; PULSE 67; TEMP 36.9; O2SAT 96
[2017-01-01] MEDS: CARBIDOPA/LEVODOPA 25/100MG TAB PO SCH ×4 (09:00→20:41)
[2017-01-01] MEDS: SERTRALINE HCL 50 MG TAB PO SCH ×2 (09:00→12:29)
[2017-01-01] MEDS: CYANOCOBALAMIN 500 MCG TAB (VIT B-12) PO SCH ×2 (09:00→12:26)
[2017-01-01] MEDS: ALLOPURINOL 300 MG TAB PO SCH ×2 (09:00→12:31)
[2017-01-01] MEDS: RANITIDINE HCL 150 MG TAB PO SCH ×3 (09:00→20:40)
[2017-01-01] MEDS: ASPIRIN 81 MG ECTAB PO SCH ×2 (09:00→12:31)
[2017-01-01] MEDS: GABAPENTIN 300 MG CAP PO SCH ×5 (09:00→20:40)
[2017-01-01] MEDS: CHOLECALCIFEROL 1000 INTER.UNIT TAB PO SCH ×2 (09:00→12:25)
[2017-01-01] MEDS: TRIAMTERENE/HCTZ 37.5/25MG TAB PO SCH ×2 (09:00→12:31)
--- NOTE | 2017-01-01 09:20 | Surgery Consultation ---
Consultation Date of Consultation: Jan 01, 2017. Attending Physician: Sukhwinder Soares MD, PhD History of Present Illness pt s/p recent sigmoidectomy for recurrent volvulus. Was d/c'd several days ago. per daughter, pt had no pain, fever, etc...but felt distended and "uncomfortable".... Past Medical/Surgical History Medical Problems: (1) Abdominal distension Status: Acute (2) Rhabdomyolysis Status: Acute (3) Sigmoid volvulus Status: Acute (4) Vomiting Status: Acute (5) Weakness Status: Acute Social History Problems: (1) Status post partial colectomy Status: Acute Family History Diabetes mellitus FH: breast cancer Social History Smoking Status: Former Smoker Smokeless Tobacco Use: No Alcohol Use: none Drug Use: none Marital Status: , Housing Status: lives with significant other Occupation Status: retired Allergies Coded Allergies: No Known Allergies (Verified , 07/11/16) Home Medications Scheduled Allopurinol (Zyloprim), 300 MG PO DAILY Aspirin (Aspirin Ec), 81 MG PO DAILY Carbidopa/Levodopa (Sinemet 25MG/100MG), 1.5 TAB PO TID Cholecalciferol (Vitamin D3), 2,000 UNITS PO DAILY Cyanocobalamin (Vitamin B12), 1,000 MCG PO DAILY Gabapentin (Neurontin), 300 MG PO QID Ranitidine (Zantac), 150 MG PO BID Sertraline (Zoloft), 1 TAB PO DAILY Triamterene/Hctz (Triamterene/Hctz 37.5-25MG), 0.5 TAB PO DAILY Scheduled PRN Clonazepam (Klonopin), 0.25-0.5 MG PO HS PRN for Sleep Miconazole Nitrate (Desenex Shake Powder), 1 APPLN EXT BID PRN for Affected Skin Folds Ondansetron Hcl (Zofran), 4 MG PO q6hrs PRN for Nausea Polyethylene Glycol 3350 (Bulk (Polyethylene Glycol 3350), 17 GM PO DAILY PRN for Constipation Current Inpatient Medications Current Inpatient Medications Medications (Trade) Dose Ordered Sig/[place] Route Start Time Stop Time Status Last Admin Dose Admin Ioversol (Optiray 320) 100 ml UD PRN IV 12/31/16 18:00 01/04/17 17:59 Miscellaneous (Iv Fluids Completed) 1 ea PRN PRN N/A 12/31/16 21:30 12/31/17 21:29 Sodium Chloride 1,000 ml @ 125 mls/hr Q8H IV 12/31/16 23:00 01/30/17 22:59 01/01/17 05:44 125 MLS/HR Allopurinol (Zyloprim Tab) 300 mg DAILY PO 01/01/17 09:00 01/31/17 08:59 Aspirin (Ecotrin Tab) 81 mg DAILY PO 01/01/17 09:00 01/31/17 08:59 Carbidopa/Levodopa (Sinemet 25/ 100MG Tab) 1.5 tab TID PO 01/01/17 09:00 01/31/17 08:59 Clonazepam (Klonopin Tab) 0.25 mg HS PRN PO 12/31/16 22:45 01/30/17 22:44 Gabapentin (Neurontin Cap) 300 mg QID PO 01/01/17 09:00 01/31/17 08:59 Miconazole Nitrate (Desenex Powder) 1 appln BID PRN EXT 12/31/16 22:45 01/30/17 22:44 Ondansetron HCl (Zofran Tab) 4 mg Q8H PRN PO 12/31/16 22:45 01/30/17 22:44 Ranitidine HCl (zANTac TAB) 150 mg BID PO 01/01/17 09:00 01/31/17 08:59 Sertraline HCl (Zoloft Tab) 25 mg DAILY PO 01/01/17 09:00 01/31/17 08:59 Triamterene/HCTZ (Maxzide 37.5/25 Tab) 0.5 tab DAILY PO 01/01/17 09:00 01/31/17 08:59 Cholecalciferol (Vitamin D Tab) 2,000 inter.unit DAILY PO 01/01/17 09:00 01/31/17 08:59 Cyanocobalamin (Vitamin B-12 Tab) 1,000 mcg DAILY PO 01/01/17 09:00 01/31/17 08:59 Polyethylene (Miralax Powder Packet) 17 gm DAILY PRN PO 12/31/16 22:45 01/30/17 22:44 Hydralazine HCl (HydrALAZINE INJ) 10 mg Q6H PRN IV. 12/31/16 23:30 01/30/17 23:29 Review of Systems Abdomen: + problem reported (distension;decreased PO intake) Physical Exam Date Time Temp Pulse Resp B/P (MAP) Pulse Ox O2 Delivery O2 Flow Rate FiO2 01/01/17 07:06 36.9 67 15 147/71 (96) 96 Room Air 12/31/16 23:48 Room Air 12/31/16 23:01 36.7 71 16 132/67 (88) 97 Room Air 12/31/16 21:30 36.6 73 20 173/78 (109) 99 Room Air 12/31/16 21:13 70 20 151/70 98 Room Air 12/31/16 20:57 36.8 74 20 127/74 99 Room Air 12/31/16 20:01 74 20 127/74 96 Room Air 12/31/16 18:22 71 22 135/71 96 Room Air 12/31/16 17:24 77 12/31/16 16:45 36.8 84 16 129/67 93 Room Air General Appearance: + pertinent finding (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 ) Laboratory Results Last 24 Hours Test 12/31/16 17:10 12/31/16 20:55 01/01/17 05:11 01/01/17 08:32 White Blood Count 12.42 K/uL 9.85 K/uL Red Blood Count 3.99 M/uL 3.57 M/uL Hemoglobin 12.0 g/dL 10.8 g/dL Hematocrit 37.7 % 34.1 % Mean Corpuscular Volume 94.5 fL 95.5 fL Mean Corpuscular Hemoglobin 30.1 pg 30.3 pg Mean Corpuscular Hemoglobin Concent 31.8 g/dl 31.7 g/dl Platelet Count 455 K/uL 394 K/uL Mean Platelet Volume 10.0 fL 10.0 fL Neutrophils (%) (Auto) 77.9 % 66.8 % Lymphocytes (%) (Auto) 9.3 % 14.0 % Monocytes (%) (Auto) 11.8 % 17.0 % Eosinophils (%) (Auto) 0.3 % 1.5 % Basophils (%) (Auto) 0.1 % 0.1 % Neutrophils # (Auto) 9.68 K/uL 6.58 K/uL Lymphocytes # (Auto) 1.15 K/uL 1.38 K/uL Monocytes # (Auto) 1.47 K/uL 1.67 K/uL Eosinophils # (Auto) 0.04 K/uL 0.15 K/uL Basophils # (Auto) 0.01 K/uL 0.01 K/uL RDW Standard Deviation 48.1 fL 49.4 fL RDW Coefficient of Variation 14.0 % 14.2 % Immature Granulocyte % (Auto) 0.6 % 0.6 % Immature Granulocyte # (Auto) 0.07 K/uL 0.06 K/uL Red Blood Cell Morphology Unremarkable Prothrombin Time 11.7 SECONDS Prothromb Time International Ratio 1.1 Activated Partial Thromboplast Time 25.4 SECONDS Partial Thromboplastin Ratio 1.0 Sodium Level 135 mmol/L 137 mmol/L Potassium Level 4.0 mmol/L 3.6 mmol/L Chloride Level 102 mmol/L 104 mmol/L Carbon Dioxide Level 27 mmol/L 28 mmol/L Anion Gap 6.0 mmol/L 5.0 mmol/L Blood Urea Nitrogen 16 mg/dl 12 mg/dl Creatinine 1.10 mg/dl 1.00 mg/dl Est Creatinine Clear Calc Drug Dose 71.6 ml/min 78.7 ml/min Estimated GFR () 75.2 84.4 Estimated GFR (Non- 64.9 72.8 BUN/Creatinine Ratio 14.4 12.1 Random Glucose 153 mg/dl 99 mg/dl Calcium Level 9.0 mg/dl 8.6 mg/dl Total Bilirubin 0.7 mg/dl 0.7 mg/dl Aspartate Amino Transf (AST/SGOT) 17 U/L 14 U/L Alanine Aminotransferase (ALT/SGPT) 10 U/L 11 U/L Alkaline Phosphatase 103 U/L 88 U/L Troponin I < 0.015 ng/ml Total Protein 7.7 gm/dl 6.7 gm/dl Albumin 3.2 gm/dl 2.8 gm/dl Globulin 4.5 gm/dl 3.9 gm/dl Albumin/Globulin Ratio 0.7 0.7 Lipase 418 U/L Urine Color YELLOW Urine Appearance CLEAR Urine pH 6.0 Urine Specific [place] 1.041 Urine Protein NEG Urine Glucose (UA) NEG Urine Ketones NEG Urine Occult Blood NEG Urine Nitrite NEG Urine Bilirubin NEG Urine Urobilinogen NEG Urine Leukocyte Esterase NEG Assessment & Plan A: Ct showing 1.large bowel dilation ( had at time of surgery as well... likely institutional bowel). 2. fluid collection ( suspect hematoma). 3. mesenteric thrombus agree with LE Ultrasound. pt with hx of DVT. Can consider antibiotics though clinically no overt signs of infection ( WBC down since admission). I ordered a lactic acid level this AM. B. elevated lipase. ? etiology of abdominal discomfort/bloating. Will recheck lipase and amylase today Would primarily proceed with conservative tx. no indication for surgical intervention at this time. will follow along .
--- NOTE | 2017-01-01 09:41 | DIAGNOSTIC IMAGING REPORT ---
DUPLEX MESENTERIC CLINICAL HISTORY: r/o mesenteric thrombus abnormal CT exam TECHNIQUE: Doppler COMPARISON STUDY: CT dated 12/31/2016 FINDINGS: Near nondiagnostic exam due to overlying bowel content. Mesenteric venous vasculature could not be identified. The portal veins as well as hepatic veins are patent. Splenic vein is patent. IMPRESSION: Nondiagnostic evaluation of the mesenteric venous vasculature due to overlying bowel content. Unremarkable venous flow characteristics of the upper abdomen. The above report was generated using voice recognition software. It may contain grammatical, syntax or spelling errors. Electronically signed by: Tom Auguste M.D. 01/01/2017 9:40 AM Dictated Date/Time: 01/01/2017 9:38 AM
[2017-01-01 11:01] LABS: AMYLASE 45 U/L (25-115)
--- NOTE | 2017-01-01 11:21 | Progress Note ---
Subjective Date of Service: Jan 01, 2017. Subjective Pt evaluation today including: conversation w/ patient, conversation w/ family , physical exam, chart review, lab review, review of studies, conversation w/ telesales consultant, review of inpatient medication list feeling ok, no c/o no n/v, no abd pain, but also reported not passing gas or BM when inquiry Problem List Medical Problems: (1) Abdominal distension Status: Acute (2) Rhabdomyolysis Status: Acute (3) Sigmoid volvulus Status: Acute (4) Vomiting Status: Acute (5) Weakness Status: Acute Social History Problems: (1) Status post partial colectomy Status: Acute Review of Systems Constitutional: No fever, No chills, No sweats, No weight loss, No weakness, No fatigue, No problem reported Eyes: No worsening of vision, No eye pain, No redness, No discharge, No diplopia ENT: No hearing loss, No unusual epistaxis, No nasal symptoms, No sore throat, No tinnitus, No dental problems, No trouble swallowing Respiratory: No cough, No sputum, No wheezing, No shortness of breath, No dyspnea on exertion, No dyspnea at rest, No hemoptysis Cardiac: No chest pain, No orthopnea, No PND, No edema, No claudication, No palpitations Abdomen: No pain, No nausea, No vomiting, No diarrhea, No constipation Musculoskeletal: No joint pain, No muscle pain, No swelling, No calf pain Male : No dysuria, No urinary frequency, No incontinence, No nocturia more than once/night, No slowing stream, No hematuria Neurologic: No memory loss, No paralysis, No weakness, No numbness/tingling, No vertigo, No balance problems Psychiatric: No depression symptoms, No anhedonism, No anxiety, No insomnia, No substance abuse Heme: No abnormal bleeding/bruising, No clotting problems, No swollen lymph nodes, No night sweats Endo: No fatigue, No excessive thirst, No excessive urination Skin: No rash, No itch, No new/changing skin lesions, No color change, No bleeding Objective Vital Signs Date Time Temp Pulse Resp B/P (MAP) Pulse Ox O2 Delivery O2 Flow Rate FiO2 01/01/17 07:06 36.9 67 15 147/71 (96) 96 Room Air 12/31/16 23:48 Room Air 12/31/16 23:01 36.7 71 16 132/67 (88) 97 Room Air 12/31/16 21:30 36.6 73 20 173/78 (109) 99 Room Air 12/31/16 21:13 70 20 151/70 98 Room Air 12/31/16 20:57 36.8 74 20 127/74 99 Room Air 12/31/16 20:01 74 20 127/74 96 Room Air 12/31/16 18:22 71 22 135/71 96 Room Air 12/31/16 17:24 77 12/31/16 16:45 36.8 84 16 129/67 93 Room Air Physical Exam General Appearance: WD/WN, no apparent distress, + pertinent finding (looks older than age) Eyes: normal inspection, PERRL, EOMI, sclerae normal ENT: normal ENT inspection, hearing grossly normal, pharynx normal Neck: supple, no adenopathy, thyroid normal, no JVD, no carotid bruits, trachea midline Respiratory/Chest: chest non-tender, lungs clear, normal breath sounds, no respiratory distress, no accessory muscle use Cardiovascular: regular rate, rhythm, no edema, no gallop, no JVD, no murmur Abdomen: non tender, soft, no organomegaly, no pulsatile mass, + pertinent finding (decreased BS) Extremities: normal range of motion, non-tender, normal inspection, no pedal edema, no calf tenderness, normal capillary refill, pelvis stable 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, no motor/sensory deficits, alert, normal mood/affect, oriented x 3 Skin: normal color, warm/dry, no rash Lymphatic: no adenopathy Laboratory Results Last 24 Hours Test 12/31/16 17:10 12/31/16 20:55 01/01/17 05:11 01/01/17 10:23 White Blood Count 12.42 K/uL 9.85 K/uL Red Blood Count 3.99 M/uL 3.57 M/uL Hemoglobin 12.0 g/dL 10.8 g/dL Hematocrit 37.7 % 34.1 % Mean Corpuscular Volume 94.5 fL 95.5 fL Mean Corpuscular Hemoglobin 30.1 pg 30.3 pg Mean Corpuscular Hemoglobin Concent 31.8 g/dl 31.7 g/dl Platelet Count 455 K/uL 394 K/uL Mean Platelet Volume 10.0 fL 10.0 fL Neutrophils (%) (Auto) 77.9 % 66.8 % Lymphocytes (%) (Auto) 9.3 % 14.0 % Monocytes (%) (Auto) 11.8 % 17.0 % Eosinophils (%) (Auto) 0.3 % 1.5 % Basophils (%) (Auto) 0.1 % 0.1 % Neutrophils # (Auto) 9.68 K/uL 6.58 K/uL Lymphocytes # (Auto) 1.15 K/uL 1.38 K/uL Monocytes # (Auto) 1.47 K/uL 1.67 K/uL Eosinophils # (Auto) 0.04 K/uL 0.15 K/uL Basophils # (Auto) 0.01 K/uL 0.01 K/uL RDW Standard Deviation 48.1 fL 49.4 fL RDW Coefficient of Variation 14.0 % 14.2 % Immature Granulocyte % (Auto) 0.6 % 0.6 % Immature Granulocyte # (Auto) 0.07 K/uL 0.06 K/uL Red Blood Cell Morphology Unremarkable Prothrombin Time 11.7 SECONDS Prothromb Time International Ratio 1.1 Activated Partial Thromboplast Time 25.4 SECONDS Partial Thromboplastin Ratio 1.0 Sodium Level 135 mmol/L 137 mmol/L Potassium Level 4.0 mmol/L 3.6 mmol/L Chloride Level 102 mmol/L 104 mmol/L Carbon Dioxide Level 27 mmol/L 28 mmol/L Anion Gap 6.0 mmol/L 5.0 mmol/L Blood Urea Nitrogen 16 mg/dl 12 mg/dl Creatinine 1.10 mg/dl 1.00 mg/dl Est Creatinine Clear Calc Drug Dose 71.6 ml/min 78.7 ml/min Estimated GFR () 75.2 84.4 Estimated GFR (Non- 64.9 72.8 BUN/Creatinine Ratio 14.4 12.1 Random Glucose 153 mg/dl 99 mg/dl Calcium Level 9.0 mg/dl 8.6 mg/dl Total Bilirubin 0.7 mg/dl 0.7 mg/dl Aspartate Amino Transf (AST/SGOT) 17 U/L 14 U/L Alanine Aminotransferase (ALT/SGPT) 10 U/L 11 U/L Alkaline Phosphatase 103 U/L 88 U/L Troponin I < 0.015 ng/ml Total Protein 7.7 gm/dl 6.7 gm/dl Albumin 3.2 gm/dl 2.8 gm/dl Globulin 4.5 gm/dl 3.9 gm/dl Albumin/Globulin Ratio 0.7 0.7 Lipase 418 U/L 229 U/L Urine Color YELLOW Urine Appearance CLEAR Urine pH 6.0 Urine Specific Pe Ell 1.041 Urine Protein NEG Urine Glucose (UA) NEG Urine Ketones NEG Urine Occult Blood NEG Urine Nitrite NEG Urine Bilirubin NEG Urine Urobilinogen NEG Urine Leukocyte Esterase NEG Lactic Acid Level 1.1 mmol/L Amylase Level 45 U/L Assessment and Plan 76 yo m with a recent history of sigmoidectomy secondary to volvulus suffering from colonic distention and a possible mesenteric venous thrombosis admitted on 12/31/2016 Abdominal pain secondary to colonic distention; s/p sigmoidectomy stable recheck lipase, has down, lactic acid 1.1, mild leukocytosis d/w surgeon, abd cT showed bowel distention is not new, estrada not feel has ischemic events going on surgeon recs clear liquid diet continue home ranitidine Possible mesenteric venous thrombosis , seem very less likely per surgeon - Patient has recently had CT abd with contrast so will attempt to visualize flow of mesenteric arteries and this possible venous thrombosis with US mesenteric - no more abdominal pain, mesenteric duplex US this am is not conclusive, reported: "Nondiagnostic evaluation of the mesenteric venous vasculature due to overlying bowel content. Unremarkable venous flow characteristics of the upper abdomen" HTN - Continue triamterene/ HCTZ PO - will have hydralazine prn for systolic > 180 DMII - patient has been of his medications for Dm - will monitor the BSG and if the patient has consistently elevated BSG - continue sliding scale, check a1c Parkinson's - Continue Sinemet once tolerating PO Anxiety - typically uses clonazepam if using CPAP because of claustrophobia Depression - continue Zoloft once PO LEN - daughter will bring CPAP from home Gout continue allopurinol DVT Prophylaxis - due to uncertainty for need for intervention will place on SCD, d/w pt and son of care plan, answer all questions full code, but dose not want to prolonged life support Continued [facility] stay due to: multiple IV medications needed Discharge planning: uncertain
[2017-01-01] MEDS ORDERED: NURSING VERBAL MED ORDER ONE (11:45)
[2017-01-01 12:33] VITALS: BP 165/82; PULSE 75
[2017-01-01 15:29] VITALS: BP 168/80; PULSE 76; TEMP 36.8; O2SAT 93
[2017-01-01] MEDS: ALUMINUM/MAGNESIUM SUSP 30 ML UDC PO STA ×2 (15:54→17:25)
[2017-01-01] MEDS ORDERED: ALUMINUM/MAGNESIUM SUSP 30 ML UDC PO PRN (16:00)
--- NOTE | 2017-01-01 16:38 | DIAGNOSTIC IMAGING REPORT ---
KUB HISTORY: patient was vomiting and want to rule out bowel obstruction COMPARISON: Abdomen and pelvis CT 12/31/2016. FINDINGS: Moderate to severe dilatation of the gas-filled colon. This is similar to the prior CT examination. There are few mildly dilated gas-filled loops of small bowel within the abdomen. This is also not significant changed. There are midline skin melvin. The colon measures up to 9.5 cm in diameter. No renal calculi. No ureteral calculi. No pneumoperitoneum or pneumatosis. IMPRESSION: No change in the dilated gas-filled loops of large and small bowel. This favors a postoperative ileus given the recent postoperative changes. Electronically signed by: Claude Smith M.D. 01/01/2017 4:37 PM Dictated Date/Time: 01/01/2017 4:34 PM
[2017-01-01] MEDS ORDERED: ONDANSETRON INJ 2 MG/ML 2 ML VIAL IV PRN (17:00)
[2017-01-01] MEDS ORDERED: ONDANSETRON INJ 2 MG/ML 2 ML VIAL IV ONE (17:15)
[2017-01-01 22:46] VITALS: BP 143/72; PULSE 66; TEMP 36.7; O2SAT 97
[2017-01-02] MEDS: SODIUM CHLORIDE 0.9% 1000ML 1,000 ML IV SCH (04:28)
[2017-01-02 05:49] LABS: BASO % 0.1 %; BASO ABS # 0.01 K/uL (0-0.2); COMPLETE YES; EOS % 2.5 %; HEMATOCRIT 32.3 % (42-52); IG% 0.5 %; LYMPH ABS # 1.61 K/uL (1.2-3.4); MEAN CORPUSCULAR HGB CONC 31.6 g/dl (32-36); MEAN PLATELET VOLUME 9.9 fL (7.4-10.4); MONO % 16.7 %; NEUT % 59.2 %; PLATELET COUNT 375 K/uL (130-400); WHITE BLOOD COUNT 7.67 K/uL (4.8-10.8)
[2017-01-02 06:16] LABS: CALCIUM 8.2 mg/dl (8.5-10.1); CREATININE 0.84 mg/dl (0.60-1.40); MAGNESIUM 1.6 mg/dl (1.8-2.4); POTASSIUM 3.5 mmol/L (3.5-5.1)
[2017-01-02 07:14] VITALS: BP 164/73; PULSE 66; TEMP 36.5; O2SAT 93
[2017-01-02] MEDS: CARBIDOPA/LEVODOPA 25/100MG TAB PO SCH ×3 (09:03→20:54)
[2017-01-02] MEDS: CHOLECALCIFEROL 1000 INTER.UNIT TAB PO SCH (09:03)
[2017-01-02 09:04] VITALS: BP 171/78; PULSE 66
[2017-01-02] MEDS: CYANOCOBALAMIN 500 MCG TAB (VIT B-12) PO SCH (09:04)
[2017-01-02] MEDS: TRIAMTERENE/HCTZ 37.5/25MG TAB PO SCH (09:05)
[2017-01-02] MEDS: SERTRALINE HCL 50 MG TAB PO SCH (09:05)
[2017-01-02] MEDS: RANITIDINE HCL 150 MG TAB PO SCH ×2 (09:05→20:53)
[2017-01-02] MEDS: ALLOPURINOL 300 MG TAB PO SCH (09:06)
[2017-01-02] MEDS: ASPIRIN 81 MG ECTAB PO SCH (09:06)
[2017-01-02] MEDS: GABAPENTIN 300 MG CAP PO SCH ×4 (09:06→20:53)
--- NOTE | 2017-01-02 10:44 | Progress Note ---
Subjective Date of Service: Jan 02, 2017. Subjective Pt evaluation today including: conversation w/ patient, conversation w/ family , physical exam, chart review, lab review, review of studies, conversation w/ sr technical sales consultant, review of inpatient medication list Report feeling much better, tolerate diet, eating and drinking, has 2-3 bowel movement, large amount, since yesterday afternoon, No more nausea vomiting, no abdominal pain, daughter agree his color looks much better too Problem List Medical Problems: (1) Abdominal distension Status: Acute (2) Rhabdomyolysis Status: Acute (3) Sigmoid volvulus Status: Acute (4) Vomiting Status: Acute (5) Weakness Status: Acute Social History Problems: (1) Status post partial colectomy Status: Acute Review of Systems Constitutional: No fever, No chills, No sweats, No weight loss, No weakness, No fatigue, No problem reported Eyes: No worsening of vision, No eye pain, No redness, No discharge, No diplopia ENT: No hearing loss, No unusual epistaxis, No nasal symptoms, No sore throat, No tinnitus, No dental problems, No trouble swallowing Respiratory: No cough, No sputum, No wheezing, No shortness of breath, No dyspnea on exertion, No dyspnea at rest, No hemoptysis Cardiac: No chest pain, No orthopnea, No PND, No edema, No claudication, No palpitations Abdomen: No pain, No nausea, No vomiting, No diarrhea, No constipation Musculoskeletal: No joint pain, No muscle pain, No swelling, No calf pain Male : No dysuria, No urinary frequency, No incontinence, No nocturia more than once/night, No slowing stream, No hematuria Neurologic: No memory loss, No paralysis, No weakness, No numbness/tingling, No vertigo, No balance problems Psychiatric: No depression symptoms, No anhedonism, No anxiety, No insomnia, No substance abuse Heme: No abnormal bleeding/bruising, No clotting problems, No swollen lymph nodes, No night sweats Endo: No fatigue, No excessive thirst, No excessive urination Skin: No rash, No itch, No new/changing skin lesions, No color change, No bleeding Objective Vital Signs Date Time Temp Pulse Resp B/P (MAP) Pulse Ox O2 Delivery O2 Flow Rate FiO2 01/02/17 09:04 66 171/78 (109) 01/02/17 07:14 36.5 66 16 164/73 (103) 93 Room Air 01/01/17 22:46 36.7 66 16 143/72 (95) 97 CPAP 01/01/17 20:05 Room Air 01/01/17 15:29 36.8 76 18 168/80 (109) 93 Room Air 01/01/17 12:33 75 165/82 (109) Physical Exam General Appearance: WD/WN, no apparent distress, + obese Eyes: normal inspection, PERRL, EOMI, sclerae normal ENT: normal ENT inspection, hearing grossly normal, pharynx normal Neck: supple, no adenopathy, thyroid normal, no JVD, no carotid bruits, trachea midline Respiratory/Chest: chest non-tender, lungs clear, normal breath sounds, no respiratory distress, no accessory muscle use Cardiovascular: regular rate, rhythm, no edema, no gallop, no JVD, no murmur Abdomen: normal bowel sounds, non tender, soft, no organomegaly, no pulsatile mass, + distended (mild) Extremities: normal range of motion, non-tender, normal inspection, no pedal edema, no calf tenderness, normal capillary refill, pelvis stable 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, no motor/sensory deficits, alert, normal mood/affect, oriented x 3 Skin: normal color, warm/dry, no rash Lymphatic: no adenopathy Laboratory Results Last 24 Hours Test 01/01/17 20:58 01/02/17 05:01 01/02/17 07:52 Bedside Glucose 116 mg/dl 111 mg/dl White Blood Count 7.67 K/uL Red Blood Count 3.40 M/uL Hemoglobin 10.2 g/dL Hematocrit 32.3 % Mean Corpuscular Volume 95.0 fL Mean Corpuscular Hemoglobin 30.0 pg Mean Corpuscular Hemoglobin Concent 31.6 g/dl Platelet Count 375 K/uL Mean Platelet Volume 9.9 fL Neutrophils (%) (Auto) 59.2 % Lymphocytes (%) (Auto) 21.0 % Monocytes (%) (Auto) 16.7 % Eosinophils (%) (Auto) 2.5 % Basophils (%) (Auto) 0.1 % Neutrophils # (Auto) 4.54 K/uL Lymphocytes # (Auto) 1.61 K/uL Monocytes # (Auto) 1.28 K/uL Eosinophils # (Auto) 0.19 K/uL Basophils # (Auto) 0.01 K/uL RDW Standard Deviation 48.6 fL RDW Coefficient of Variation 14.1 % Immature Granulocyte % (Auto) 0.5 % Immature Granulocyte # (Auto) 0.04 K/uL Sodium Level 137 mmol/L Potassium Level 3.5 mmol/L Chloride Level 105 mmol/L Carbon Dioxide Level 26 mmol/L Anion Gap 6.0 mmol/L Blood Urea Nitrogen 10 mg/dl Creatinine 0.84 mg/dl Est Creatinine Clear Calc Drug Dose 93.7 ml/min Estimated GFR () 98.6 Estimated GFR (Non- 85.1 BUN/Creatinine Ratio 12.0 Random Glucose 91 mg/dl Calcium Level 8.2 mg/dl Magnesium Level 1.6 mg/dl Total Bilirubin 0.6 mg/dl Direct Bilirubin 0.2 mg/dl Aspartate Amino Transf (AST/SGOT) 14 U/L Alanine Aminotransferase (ALT/SGPT) 11 U/L Alkaline Phosphatase 82 U/L Total Protein 6.2 gm/dl Albumin 2.5 gm/dl Assessment and Plan 76 yo m with a recent history of sigmoidectomy secondary to volvulus suffering from colonic distention and a 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 stable Minimal elevated lipase upon admission, possible secondary to dehydration , rechecked lipase, had down, lactic acid 1.1, mild leukocytosis d/w surgeon, abd cT showed bowel distention is not new, estrada not feel has ischemic events going on surgeon recs clear liquid diet, will continue and advise as tolerated Was complaining heartburn yesterday with nausea and vomiting 1, KUB was not remarkable, continue home ranitidine , and add Maalox as needed for heartburn Possible mesenteric venous thrombosis , possible currently stable because patient has no fever no chills, no reported abdominal pain, no nausea vomiting for now, and tolerated diet - Patient has recently had CT abd with contrast so will attempt to visualize flow of mesenteric arteries and this possible venous thrombosis with US mesenteric - mesenteric duplex US this am is not conclusive, reported: "Nondiagnostic evaluation of the mesenteric venous vasculature due to overlying bowel content. Unremarkable venous flow characteristics of the upper abdomen", discussed [facility] GI service, they recommend vascular surgeon consultation, to see any further evaluation and treatment, can no surgeon consult requested Accelerated hypertension with history of HTN - Continue triamterene/ HCTZ PO , add lisinopril 2.5 mg by mouth daily, patient has diabetic, this medicine will benefit for the prevention of diabetic kidney disease - will have hydralazine prn for systolic > 180 DMII - patient has been of his medications for Dm, blood glucose fairly controlled - Continue monitor the BSG and if the patient has consistently elevated BSG - continue sliding scale, check a1c Parkinson's Anxiety Depression LEN Gout The above condition is stable we'll continue current medication DVT Prophylaxis - Upon admission due to uncertainty for need for intervention will place on SCD , I feel for now patient will be okay to start covering for DVT prophylaxis d/w pt and daughter of care plan, answer all questions, daughter will be okay to rehabilitation if needed per PT OT evaluation Discontinue IV fluid, PTOT, discharge in 1-2 days full code, but dose not want to prolonged life support Continued [facility] stay due to: home environment unsafe for pt Discharge planning: uncertain
--- NOTE | 2017-01-02 10:45 | Surgery Progress Note ---
Surgery Progress Note Date of Service Jan 02, 2017. Subjective + bowel movement (large, liquid), + nausea (some yesterday), + diet (clears), No complaints Objective Vital Signs: Date Time Temp Pulse Resp B/P (MAP) Pulse Ox O2 Delivery O2 Flow Rate FiO2 01/02/17 09:04 66 171/78 (109) 01/02/17 07:14 36.5 66 16 164/73 (103) 93 Room Air 01/01/17 22:46 36.7 66 16 143/72 (95) 97 CPAP 01/01/17 20:05 Room Air 01/01/17 15:29 36.8 76 18 168/80 (109) 93 Room Air 01/01/17 12:33 75 165/82 (109) Abdomen: + distended (less, softer) Incision(s): clean, no erythema Laboratory Results: Results Past 24 Hours Test 01/01/17 20:58 01/02/17 05:01 01/02/17 07:52 Range/Units Bedside Glucose 116 111 70-99 mg/dl White Blood Count 7.67 4.8-10.8 K/uL Red Blood Count 3.40 4.7-6.1 M/uL Hemoglobin 10.2 14.0-18.0 g/dL Hematocrit 32.3 42-52 % Mean Corpuscular Volume 95.0 80-100 fL Mean Corpuscular Hemoglobin 30.0 25-34 pg Mean Corpuscular Hemoglobin Concent 31.6 32-36 g/dl Platelet Count 375 130-400 K/uL Mean Platelet Volume 9.9 7.4-10.4 fL Neutrophils (%) (Auto) 59.2 % Lymphocytes (%) (Auto) 21.0 % Monocytes (%) (Auto) 16.7 % Eosinophils (%) (Auto) 2.5 % Basophils (%) (Auto) 0.1 % Neutrophils # (Auto) 4.54 1.4-6.5 K/uL Lymphocytes # (Auto) 1.61 1.2-3.4 K/uL Monocytes # (Auto) 1.28 0.11-0.59 K/uL Eosinophils # (Auto) 0.19 0-0.5 K/uL Basophils # (Auto) 0.01 0-0.2 K/uL RDW Standard Deviation 48.6 36.4-46.3 fL RDW Coefficient of Variation 14.1 11.5-14.5 % Immature Granulocyte % (Auto) 0.5 % Immature Granulocyte # (Auto) 0.04 0.00-0.02 K/uL Sodium Level 137 136-145 mmol/L Potassium Level 3.5 3.5-5.1 mmol/L Chloride Level 105 98-107 mmol/L Carbon Dioxide Level 26 21-32 mmol/L Anion Gap 6.0 3-11 mmol/L Blood Urea Nitrogen 10 7-18 mg/dl Creatinine 0.84 0.60-1.40 mg/dl Est Creatinine Clear Calc Drug Dose 93.7 ml/min Estimated GFR () 98.6 Estimated GFR (Non- 85.1 BUN/Creatinine Ratio 12.0 10-20 Random Glucose 91 70-99 mg/dl Calcium Level 8.2 8.5-10.1 mg/dl Magnesium Level 1.6 1.8-2.4 mg/dl Total Bilirubin 0.6 0.2-1 mg/dl Direct Bilirubin 0.2 0-0.2 mg/dl Aspartate Amino Transf (AST/SGOT) 14 15-37 U/L Alanine Aminotransferase (ALT/SGPT) 11 12-78 U/L Alkaline Phosphatase 82 45-117 U/L Total Protein 6.2 6.4-8.2 gm/dl Albumin 2.5 3.4-5.0 gm/dl Assessment & Plan ileus s/p sigmoid resection for volvulus bowels moving, tolerating clears can advance diet as wendy, will add Boost bid skin melvin removed, steris applied
[2017-01-02] MEDS ORDERED: LISINOPRIL 5 MG TAB PO STA (11:10)
--- NOTE | 2017-01-02 11:37 | Surgery Consultation ---
Consultation Date of Service Jan 02, 2017. (Fatmata Mederos, LILIA) Chief Complaint possible mesenteric v thombus (Fatmata Mederos PA-C) History of Present Illness The patient is a 76 year old male s/p sigmoidectomy on 12/18/16, admitted with abd distention and decreased appetite, seen in consultation today for possible mesenteric v thrombus noted on CT scan. Pt states feeling much improved presently. Remains on clear liquid diet. Denies MARTINEZ, fever, chills, chest pain , SOB, N/V, rest pain, claudication, other complaints. CT report states fluid collection, possible mesenteric v thrombus d/t filling defect. (Fatmata Mederos, LILIA) Vitals Vital Signs Past 12 Hours Date Time Temp Pulse Resp B/P (MAP) Pulse Ox O2 Delivery O2 Flow Rate FiO2 01/02/17 09:04 66 171/78 (109) 01/02/17 07:14 36.5 66 16 164/73 (103) 93 Room Air (Fatmata Mederos, LILIA) Allergies Coded Allergies: No Known Allergies (Verified , 07/11/16) Home Medications Scheduled Allopurinol (Zyloprim), 300 MG PO DAILY Aspirin (Aspirin Ec), 81 MG PO DAILY Carbidopa/Levodopa (Sinemet 25MG/100MG), 1.5 TAB PO TID Cholecalciferol (Vitamin D3), 2,000 UNITS PO DAILY Cyanocobalamin (Vitamin B12), 1,000 MCG PO DAILY Gabapentin (Neurontin), 300 MG PO QID Ranitidine (Zantac), 150 MG PO BID Sertraline (Zoloft), 1 TAB PO DAILY Triamterene/Hctz (Triamterene/Hctz 37.5-25MG), 0.5 TAB PO DAILY Scheduled PRN Clonazepam (Klonopin), 0.25-0.5 MG PO HS PRN for Sleep Miconazole Nitrate (Desenex Shake Powder), 1 APPLN EXT BID PRN for Affected Skin Folds Ondansetron Hcl (Zofran), 4 MG PO q6hrs PRN for Nausea Polyethylene Glycol 3350 (Bulk (Polyethylene Glycol 3350), 17 GM PO DAILY PRN for Constipation Problem List Medical Problems: (1) BENIGN HYPERTENSION (2) DIAB W KETOACIDOSIS, TYPE II OR UNSPEC TYPE, UNCONTROLLED (3) DIVERTICULOSIS COLON (W/O MENT OF HEMORRHAGE) (4) GOUT NOS (5) IDIO PERIPH NEURPTHY NOS (6) Ileus following gastrointestinal surgery (7) Mesenteric venous thrombosis (8) MIXED HYPERLIPIDEMIA (9) Volvulus (Fatmata Mederos, GUILLAUME-C) Surgical / Medical History Hx Cardiac Surgery: No Hx Abdominal Surgery: Yes ([facility] /3years ago right colectomy) Hx Cancer Surgery: No Hx Thoracic Surgery: No Hx Orthopedic: Yes (RT KNEE 2006) Hx Urinary Tract Surgery: No HX Other Surgery: Yes (cataracts) Past Medical/Surgical History: Hypertension (Fatmata Mederos, CASEYC) Family History Diabetes mellitus FH: breast cancer (Fatmata Mederos, CASEYC) Diabetes mellitus FH: breast cancer (Gianni Vivas M.D.) Social History Smoking Status: Former Smoker Hx Tobacco Use In Past Year?: No Hx Alcohol Use - Type & Amnt: No Hx Substance Use -Type & Amnt: No (Fatmata Mederos, PA-C) Review of Systems Constitutional: + malaise, No chills Skin: No change in color Eyes: No visual changes ENMT: No sore throat Respiratory: No cough, No hemoptysis, No short of breath Cardiovascular: No chest pain, No chest tightness, No palpitations, No edema, No intermittent claudication Gastrointestinal: + abdominal pain, + appetite changes, No nausea Neurologic: No dizziness, No numbness, No tingling (Fatmata Mederos, PA-C) Physical Exam Constitutional: General Apperance: well-nourished Level of Distress: chronically ill Psychiatric: Mental Status: active & alert, normal mood, normal affect Orientation: oriented except where noted, to time, to place, to person Memory: recent memory normal, remote memory normal Head: normocephalic, atraumatic Eyes: EOM: EOMI ENMT: normal ENT inspection, hearing grossly normal Neck: supple, trachea midline Lungs: Respiratory effort: no dyspnea Auscultation: no wheezing, no rhonchi, decreased breath sounds Cardiovascular: Apical Impulse: not displaced Heart Auscultation: RRR, no rubs, no gallops Peripheral Pulses: Pulses: full and equal, in all extremities except if noted Bruits: none appreciated Carotid Pulse: normal on the left, normal on the right Brachial Pulses: normal on the left, normal on the right Radial Pulse: normal on the left, normal on the right Femoral Pulse: normal on the left, normal on the right Posterior Tibialis Pulse: decreased on the left, decreased on the right Dorsalis Pedis Pulse: decreased on the left, decreased on the right Abdomen: Bowel Sounds: normal Inspection & Palpation: soft, distended, pertinent finding (mild tenderness. Incision healed.) Extremities: Upper Right: no cyanosis, no edema, no varicosities Upper Left: no cyanosis, no edema, no varicosities Lower Right: no cyanosis, no edema, no varicosities Lower Left: no cyanosis, no edema, no varicosities Neurologic: Cranial Nerves: grossly intact Sensation: grossly intact (Fatmata Mederos, PA-C) Assessment and Plan ASSESSMENT and PLAN: Possible mesenteric v thrombus Pt discussed with Dr Vivas, who also reviewed CT scan. No vascular surgical intervention recommended. Treat with anticoagulation if safe to do so. Please call if needed. (Fatmata Mederos, PA-C) Patient was seen, examined, and chart reviewed. Agree with exam and treatment plan of the Vascular PA. Thank you very much for letting me participate in the care of this patient. (Gianni Vivas M.D.)
[2017-01-02 11:54] LABS: ESTIMATED AVERAGE GLUCOSE 111 mg/dl; HA1C FLAG Normal (Normal)
[2017-01-02 12:08] VITALS: BP 133/68; PULSE 58
[2017-01-02] MEDS: HEPARIN SOD 5000 UNIT/0.5 ML CARP SQ SCH ×2 (14:31→21:31)
[2017-01-02] MEDS: MICONAZOLE NITRATE POWDER 43 GM EXT PRN (14:34)
[2017-01-02 15:00] VITALS: BP 146/71; PULSE 56; TEMP 36.6; O2SAT 96
[2017-01-02] MEDS: BOOST VANILLA PO SCH ×2 (20:53)
[2017-01-02 23:03] VITALS: BP 114/64; PULSE 56; TEMP 36.9; O2SAT 97
[2017-01-03 05:29] LABS: BASO % 0.3 %; BASO ABS # 0.02 K/uL (0-0.2); COMPLETE YES; EOS % 2.8 %; HEMATOCRIT 31.9 % (42-52); IG% 0.9 %; LYMPH % 30.6 %; LYMPH ABS # 1.98 K/uL (1.2-3.4); MEAN CELL VOLUME 93.5 fL (80-100); MEAN CORPUSCULAR HEMOGLOBIN 30.2 pg (25-34); MEAN CORPUSCULAR HGB CONC 32.3 g/dl (32-36); MEAN PLATELET VOLUME 9.7 fL (7.4-10.4); MONO % 15.6 %; NEUT % 49.8 %; PLATELET COUNT 348 K/uL (130-400); RED BLOOD COUNT 3.41 M/uL (4.7-6.1); WHITE BLOOD COUNT 6.48 K/uL (4.8-10.8)
[2017-01-03 05:49] LABS: BUN/CREATININE RATIO 8.7 (10-20); CALCIUM 8.4 mg/dl (8.5-10.1); CREATININE 0.87 mg/dl (0.60-1.40); POTASSIUM 3.8 mmol/L (3.5-5.1)
[2017-01-03] MEDS: HEPARIN SOD 5000 UNIT/0.5 ML CARP SQ SCH ×3 (06:02→21:13)
[2017-01-03 07:44] VITALS: BP 161/75; PULSE 66; TEMP 36.8; O2SAT 95
[2017-01-03] MEDS: ASPIRIN 81 MG ECTAB PO SCH (09:18)
[2017-01-03] MEDS: RANITIDINE HCL 150 MG TAB PO SCH ×2 (09:18→21:11)
[2017-01-03] MEDS: CYANOCOBALAMIN 500 MCG TAB (VIT B-12) PO SCH (09:18)
[2017-01-03] MEDS: GABAPENTIN 300 MG CAP PO SCH ×4 (09:18→21:11)
[2017-01-03] MEDS: ALLOPURINOL 300 MG TAB PO SCH (09:18)
[2017-01-03] MEDS: TRIAMTERENE/HCTZ 37.5/25MG TAB PO SCH (09:19)
[2017-01-03] MEDS: CHOLECALCIFEROL 1000 INTER.UNIT TAB PO SCH (09:19)
[2017-01-03] MEDS: CARBIDOPA/LEVODOPA 25/100MG TAB PO SCH ×3 (09:19→21:12)
[2017-01-03] MEDS: LISINOPRIL 2.5 MG TAB PO SCH (09:19)
[2017-01-03] MEDS: SERTRALINE HCL 50 MG TAB PO SCH (09:20)
[2017-01-03] MEDS: BOOST VANILLA PO SCH ×4 (09:21→21:11)
--- NOTE | 2017-01-03 10:34 | Surgery Progress Note ---
Surgery Progress Note Date of Service Jan 03, 2017. Subjective + flatus, + diet (tolerating liquids), No complaints, No bowel movement (today) Objective Vital Signs: Date Time Temp Pulse Resp B/P (MAP) Pulse Ox O2 Delivery O2 Flow Rate FiO2 01/03/17 07:45 Room Air 01/03/17 07:44 36.8 66 16 161/75 (103) 95 Room Air 01/02/17 23:50 Room Air CPAP 01/02/17 23:03 36.9 56 16 114/64 (81) 97 Room Air 01/02/17 15:44 Room Air CPAP 01/02/17 15:00 36.6 56 18 146/71 (96) 96 Room Air 01/02/17 12:08 58 133/68 (89) Abdomen: soft, + distended (slightly) Laboratory Results: Results Past 24 Hours Test 01/02/17 11:57 01/02/17 16:56 01/02/17 20:47 01/03/17 05:08 Range/Units Bedside Glucose 121 103 109 70-99 mg/dl White Blood Count 6.48 4.8-10.8 K/uL Red Blood Count 3.41 4.7-6.1 M/uL Hemoglobin 10.3 14.0-18.0 g/dL Hematocrit 31.9 42-52 % Mean Corpuscular Volume 93.5 80-100 fL Mean Corpuscular Hemoglobin 30.2 25-34 pg Mean Corpuscular Hemoglobin Concent 32.3 32-36 g/dl Platelet Count 348 130-400 K/uL Mean Platelet Volume 9.7 7.4-10.4 fL Neutrophils (%) (Auto) 49.8 % Lymphocytes (%) (Auto) 30.6 % Monocytes (%) (Auto) 15.6 % Eosinophils (%) (Auto) 2.8 % Basophils (%) (Auto) 0.3 % Neutrophils # (Auto) 3.23 1.4-6.5 K/uL Lymphocytes # (Auto) 1.98 1.2-3.4 K/uL Monocytes # (Auto) 1.01 0.11-0.59 K/uL Eosinophils # (Auto) 0.18 0-0.5 K/uL Basophils # (Auto) 0.02 0-0.2 K/uL RDW Standard Deviation 47.5 36.4-46.3 fL RDW Coefficient of Variation 13.9 11.5-14.5 % Immature Granulocyte % (Auto) 0.9 % Immature Granulocyte # (Auto) 0.06 0.00-0.02 K/uL Sodium Level 139 136-145 mmol/L Potassium Level 3.8 3.5-5.1 mmol/L Chloride Level 105 98-107 mmol/L Carbon Dioxide Level 28 21-32 mmol/L Anion Gap 6.0 3-11 mmol/L Blood Urea Nitrogen 8 7-18 mg/dl Creatinine 0.87 0.60-1.40 mg/dl Est Creatinine Clear Calc Drug Dose 90.5 ml/min Estimated GFR () 97.2 Estimated GFR (Non- 83.8 BUN/Creatinine Ratio 8.7 10-20 Random Glucose 89 70-99 mg/dl Calcium Level 8.4 8.5-10.1 mg/dl Magnesium Level 2.0 1.8-2.4 mg/dl Test 01/03/17 08:12 Range/Units Bedside Glucose 89 70-99 mg/dl Assessment & Plan ileus s/p sigmoid resection for volvulus continue diet as wendy PT follow-up in surgery clinic 2 weeks after d/c
[2017-01-03 15:16] VITALS: BP 129/69; PULSE 64; TEMP 37.1; O2SAT 97
[2017-01-03] MEDS: WARFARIN SOD 5 MG TAB PO SCH (17:02)
[2017-01-03] MEDS: MICONAZOLE NITRATE POWDER 43 GM EXT PRN ×2 (17:04→21:11)
--- NOTE | 2017-01-03 19:47 | Progress Note ---
Subjective Date of Service: Jan 03, 2017. Subjective Pt evaluation today including: conversation w/ patient, conversation w/ family , physical exam, chart review, lab review, review of studies, conversation w/ solar energy consultant and designer, review of inpatient medication list Doing much better, up and walk, tolerated current diet, planning to advised to regular diabetic diet Problem List Medical Problems: (1) Abdominal distension Status: Acute (2) Rhabdomyolysis Status: Acute (3) Sigmoid volvulus Status: Acute (4) Vomiting Status: Acute (5) Weakness Status: Acute Social History Problems: (1) Status post partial colectomy Status: Acute Review of Systems Constitutional: No fever, No chills, No sweats, No weight loss, No weakness, No fatigue, No problem reported Eyes: No worsening of vision, No eye pain, No redness, No discharge, No diplopia ENT: No hearing loss, No unusual epistaxis, No nasal symptoms, No sore throat, No tinnitus, No dental problems, No trouble swallowing Respiratory: No cough, No sputum, No wheezing, No shortness of breath, No dyspnea on exertion, No dyspnea at rest, No hemoptysis Cardiac: No chest pain, No orthopnea, No PND, No edema, No claudication, No palpitations Abdomen: No pain, No nausea, No vomiting, No diarrhea, No constipation Musculoskeletal: No joint pain, No muscle pain, No swelling, No calf pain Male : No dysuria, No urinary frequency, No incontinence, No nocturia more than once/night, No slowing stream, No hematuria Neurologic: No memory loss, No paralysis, No weakness, No numbness/tingling, No vertigo, No balance problems Psychiatric: No depression symptoms, No anhedonism, No anxiety, No insomnia, No substance abuse Heme: No abnormal bleeding/bruising, No clotting problems, No swollen lymph nodes, No night sweats Endo: No fatigue, No excessive thirst, No excessive urination Skin: No rash, No itch, No new/changing skin lesions, No color change, No bleeding Objective Vital Signs Date Time Temp Pulse Resp B/P (MAP) Pulse Ox O2 Delivery O2 Flow Rate FiO2 01/03/17 15:45 Room Air 01/03/17 15:16 37.1 64 16 129/69 (89) 97 Room Air 01/03/17 07:45 Room Air 8/16/17 07:44 36.8 66 16 161/75 (103) 95 Room Air 01/02/17 23:50 Room Air CPAP 01/02/17 23:03 36.9 56 16 114/64 (81) 97 Room Air Physical Exam General Appearance: WD/WN, no apparent distress, + pertinent finding (looks much better, and energetic) Eyes: normal inspection, PERRL, EOMI, sclerae normal ENT: normal ENT inspection, hearing grossly normal, pharynx normal Neck: supple, no adenopathy, thyroid normal, no JVD, no carotid bruits, trachea midline Respiratory/Chest: chest non-tender, normal breath sounds, no respiratory distress, no accessory muscle use, + decreased breath sounds Cardiovascular: regular rate, rhythm, no edema, no gallop, no JVD, no murmur Abdomen: normal bowel sounds, non tender, soft, no organomegaly, no pulsatile mass Extremities: normal range of motion, non-tender, normal inspection, no pedal edema, no calf tenderness, normal capillary refill, pelvis stable Neurologic/Psychiatric: 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, no motor/sensory deficits, alert, normal mood/affect, oriented x 3 Skin: normal color, warm/dry, no rash Lymphatic: no adenopathy Laboratory Results Last 24 Hours Test 01/02/17 20:47 01/03/17 05:08 01/03/17 08:12 01/03/17 12:07 Bedside Glucose 109 mg/dl 89 mg/dl 129 mg/dl White Blood Count 6.48 K/uL Red Blood Count 3.41 M/uL Hemoglobin 10.3 g/dL Hematocrit 31.9 % Mean Corpuscular Volume 93.5 fL Mean Corpuscular Hemoglobin 30.2 pg Mean Corpuscular Hemoglobin Concent 32.3 g/dl Platelet Count 348 K/uL Mean Platelet Volume 9.7 fL Neutrophils (%) (Auto) 49.8 % Lymphocytes (%) (Auto) 30.6 % Monocytes (%) (Auto) 15.6 % Eosinophils (%) (Auto) 2.8 % Basophils (%) (Auto) 0.3 % Neutrophils # (Auto) 3.23 K/uL Lymphocytes # (Auto) 1.98 K/uL Monocytes # (Auto) 1.01 K/uL Eosinophils # (Auto) 0.18 K/uL Basophils # (Auto) 0.02 K/uL RDW Standard Deviation 47.5 fL RDW Coefficient of Variation 13.9 % Immature Granulocyte % (Auto) 0.9 % Immature Granulocyte # (Auto) 0.06 K/uL Sodium Level 139 mmol/L Potassium Level 3.8 mmol/L Chloride Level 105 mmol/L Carbon Dioxide Level 28 mmol/L Anion Gap 6.0 mmol/L Blood Urea Nitrogen 8 mg/dl Creatinine 0.87 mg/dl Est Creatinine Clear Calc Drug Dose 90.5 ml/min Estimated GFR () 97.2 Estimated GFR (Non- 83.8 BUN/Creatinine Ratio 8.7 Random Glucose 89 mg/dl Calcium Level 8.4 mg/dl Magnesium Level 2.0 mg/dl Assessment and Plan 76 yo m with a recent history of sigmoidectomy secondary to volvulus suffering from colonic distention and a 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 Unremarkable venous flow characteristics of the upper abdomen", discussed [facility] service, they recommend vascular surgeon consultation, dr Vivas, who also reviewed CT scan. No vascular surgical intervention recommended., he recs tr eat with anticoagulation if safe to do so, Today I discussed with patient, and patient's daughter and son in bedside, discussed the risk and benefit of Coumadin for anticoagulation, daughter fully understand and agreed to start Coumadin Accelerated hypertension with history of HTN, blood pressure in normal range today - Continue triamterene/ HCTZ PO , add lisinopril 2.5 mg by mouth daily, patient has diabetic, this medicine will benefit for the prevention of diabetic kidney disease - will have hydralazine prn for systolic > 180 DMII - patient has been of his medications for Dm, blood glucose fairly controlled - Continue monitor the BSG and if the patient has consistently elevated BSG - continue sliding scale, check a1c Parkinson's Anxiety Depression LEN Gout The above condition is stable we'll continue current medication DVT Prophylaxis On heparin subcutaneous d/w'ed pt and daughter of care plan, answer all questions, daughter okay to rehabilitation per PT OT evaluation investigation manager talk to patient and daughter already, referral to [facility], with the Center tito as back up full code, but dose not want to prolonged life support Continued [facility] stay due to: home environment unsafe for pt Discharge planning: rehab hospital
[2017-01-03 22:50] VITALS: BP 158/75; PULSE 63; TEMP 36.7; O2SAT 98
[2017-01-04] MEDS: HEPARIN SOD 5000 UNIT/0.5 ML CARP SQ SCH ×2 (05:37→13:47)
[2017-01-04 06:05] LABS: BASO % 0.3 %; BASO ABS # 0.02 K/uL (0-0.2); COMPLETE YES; EOS % 2.6 %; HEMATOCRIT 34.8 % (42-52); IG% 0.8 %; LYMPH % 29.6 %; LYMPH ABS # 1.94 K/uL (1.2-3.4); MEAN CELL VOLUME 95.1 fL (80-100); MEAN CORPUSCULAR HEMOGLOBIN 29.5 pg (25-34); MEAN PLATELET VOLUME 9.8 fL (7.4-10.4); NEUT % 53.7 %; PLATELET COUNT 397 K/uL (130-400); RED BLOOD COUNT 3.66 M/uL (4.7-6.1); WHITE BLOOD COUNT 6.56 K/uL (4.8-10.8)
[2017-01-04 06:38] LABS: BUN/CREATININE RATIO 11.3 (10-20); CALCIUM 8.7 mg/dl (8.5-10.1); MAGNESIUM 1.9 mg/dl (1.8-2.4); POTASSIUM 3.5 mmol/L (3.5-5.1)
[2017-01-04 07:03] VITALS: BP 149/75; PULSE 65; TEMP 36.8; O2SAT 97
[2017-01-04 07:09] LABS: INR 1.1 (0.9-1.1); PROTHROMBIN TIME (PATIENT) 11.4 SECONDS (9.0-12.0)
--- NOTE | 2017-01-04 08:57 | Surgery Progress Note ---
Surgery Progress Note Date of Service Jan 04, 2017. Subjective + feeling well tolerating a diet. no pain. no complaints. Objective Vital Signs: Date Time Temp Pulse Resp B/P (MAP) Pulse Ox O2 Delivery O2 Flow Rate FiO2 01/04/17 07:20 Room Air 01/04/17 07:03 36.8 65 18 149/75 (99) 97 Room Air 01/03/17 22:50 36.7 63 20 158/75 (102) 98 Room Air 01/03/17 20:17 Room Air CPAP 01/03/17 15:45 Room Air 01/03/17 15:16 37.1 64 16 129/69 (89) 97 Room Air General Appearance: no apparent distress Respiratory/Chest: no respiratory distress, no accessory muscle use Abdomen: non tender, soft Incision(s): clean, dry, intact Laboratory Results: Results Past 24 Hours Test 01/03/17 12:07 01/03/17 20:24 01/04/17 05:04 01/04/17 07:55 Range/Units Bedside Glucose 129 117 117 70-99 mg/dl White Blood Count 6.56 4.8-10.8 K/uL Red Blood Count 3.66 4.7-6.1 M/uL Hemoglobin 10.8 14.0-18.0 g/dL Hematocrit 34.8 42-52 % Mean Corpuscular Volume 95.1 80-100 fL Mean Corpuscular Hemoglobin 29.5 25-34 pg Mean Corpuscular Hemoglobin Concent 31.0 32-36 g/dl Platelet Count 397 130-400 K/uL Mean Platelet Volume 9.8 7.4-10.4 fL Neutrophils (%) (Auto) 53.7 % Lymphocytes (%) (Auto) 29.6 % Monocytes (%) (Auto) 13.0 % Eosinophils (%) (Auto) 2.6 % Basophils (%) (Auto) 0.3 % Neutrophils # (Auto) 3.53 1.4-6.5 K/uL Lymphocytes # (Auto) 1.94 1.2-3.4 K/uL Monocytes # (Auto) 0.85 0.11-0.59 K/uL Eosinophils # (Auto) 0.17 0-0.5 K/uL Basophils # (Auto) 0.02 0-0.2 K/uL RDW Standard Deviation 48.3 36.4-46.3 fL RDW Coefficient of Variation 14.0 11.5-14.5 % Immature Granulocyte % (Auto) 0.8 % Immature Granulocyte # (Auto) 0.05 0.00-0.02 K/uL Prothrombin Time 11.4 9.0-12.0 SECONDS Prothromb Time International Ratio 1.1 0.9-1.1 Sodium Level 139 136-145 mmol/L Potassium Level 3.5 3.5-5.1 mmol/L Chloride Level 104 98-107 mmol/L Carbon Dioxide Level 29 21-32 mmol/L Anion Gap 6.0 3-11 mmol/L Blood Urea Nitrogen 11 7-18 mg/dl Creatinine 1.00 0.60-1.40 mg/dl Est Creatinine Clear Calc Drug Dose 78.7 ml/min Estimated GFR () 84.4 Estimated GFR (Non- 72.8 BUN/Creatinine Ratio 11.3 10-20 Random Glucose 118 70-99 mg/dl Calcium Level 8.7 8.5-10.1 mg/dl Magnesium Level 1.9 1.8-2.4 mg/dl Assessment & Plan looks great clinically ok for d/c to rehab when ok with primary service. f/u with me in 2 weeks.
[2017-01-04] MEDS: BOOST VANILLA PO SCH ×2 (09:50)
[2017-01-04] MEDS: CYANOCOBALAMIN 500 MCG TAB (VIT B-12) PO SCH (11:15)
[2017-01-04] MEDS: ALLOPURINOL 300 MG TAB PO SCH (11:15)
[2017-01-04] MEDS: ASPIRIN 81 MG ECTAB PO SCH (11:15)
[2017-01-04] MEDS: CARBIDOPA/LEVODOPA 25/100MG TAB PO SCH ×2 (11:16→13:46)
[2017-01-04] MEDS: LISINOPRIL 2.5 MG TAB PO SCH (11:17)
[2017-01-04] MEDS: CHOLECALCIFEROL 1000 INTER.UNIT TAB PO SCH (11:17)
[2017-01-04] MEDS: SERTRALINE HCL 50 MG TAB PO SCH (11:18)
[2017-01-04] MEDS: TRIAMTERENE/HCTZ 37.5/25MG TAB PO SCH (11:18)
[2017-01-04] MEDS: RANITIDINE HCL 150 MG TAB PO SCH (11:19)
[2017-01-04] MEDS: GABAPENTIN 300 MG CAP PO SCH ×3 (11:19→17:04)
[2017-01-04 15:12] VITALS: BP 146/69; PULSE 65; TEMP 36.7; O2SAT 96
[2017-01-04] MEDS ORDERED: CLON0.5T3 PO (15:12)
[2017-01-04] MEDS ORDERED: LSN25 PO (15:12)
[2017-01-04] MEDS ORDERED: CMD5 PO ×2 (15:12)
--- NOTE | 2017-01-04 15:13 | Discharge Instructions ---
Discharge Instructions Date of Service Jan 04, 2017. Admission Reason for Admission: Ileus Following Gastrointestinal Sugery,Mesenteric Discharge Discharge Diagnosis / Problem: Abdominal pain likely secondary to colonic distention Discharge Goals Goal(s): Decrease discomfort, Improve function, Increase independence, Improve disease control, Improve nutritional status, Learn about illness, Diagnostic testing, Therapeutic intervention, Prevent Disease Progression, Specific goals Activity Recommendations Activity Level: Up Ad Keerthi . 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 Vivas, Vascular surgeon, possible only need 3 month of coumadin, and no need Lovenox bridging [facility] please call to Dr. Vivas's office to arrange to be seen in 1-2 week fall precaution - you need to follow up with your primary care physician in 1 week, - Follow up your surgeon as instructed - take medication as instructed, never overdose or any misuse, or take with alcohol, because misuse of medicine may cause organ damage or , call your primary care physician if have questions of medicaitons. - call your primary care physician OR go to local emergency room if has any fever/chill, chest pain, shortness of breathing, nausea/vomiting/abdominal pain , facial droop/slurry speech/local weakness, or if has any questions. - diet as instructed - you need to follow up with your subspecialist - you should understand that it is important to follow up the above instruction , and "not following the above instruction" may cause delayed or missed care of your medical conditions which may cause permanent organ damage and even . Current Hospital Diet Patient's current hospital diet: Diabetes Type 2 Diet Discharge Diet Recommended Diet: Diabetes Type 2 Diet Pending Studies Studies pending at discharge: no Laboratory Results Hemoglobin A1c Test 01/02/17 05:01 Range/Units Estimated Average Glucose 111 mg/dl Hemoglobin A1c 5.5 4.5-5.6 % Lipid Panel Test 12/23/16 05:30 Range/Units Triglycerides Level 74 0-150 mg/dl Cholesterol Level 74 0-200 mg/dl HDL Cholesterol 26 mg/dl Cholesterol/HDL Ratio 2.8 LDL Cholesterol, Calculated 33 mg/dl Medical Emergencies . Who to Call and When: Medical Emergencies: If at any time you feel your situation is an emergency, please call 911 immediately. . Non-Emergent Contact Non-Emergency issues call your: Primary Care Provider . . "Provider Documentation" section prepared by Sukhwinder Soares. . Core Measure Problem Core Measures: VTE VTE Core Measures Date of VTE Diagnosis: Dec 31, 2016 Time of VTE Diagnosis: 17:01 Reason no anticoag overlap I/P: Treatment provided - N/A Reason no anticoag overlap @DC: Treatment not indicated
--- NOTE | 2017-01-04 15:37 | Discharge Summary ---
Discharge Summary Date of Service Jan 04, 2017. 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 , Immunizations: Have You Had Influenza Vaccine: Unknown History of Tetanus Vaccine?: Unknown History of Pneumococcal: Unknown History of Hepatitis B Vaccine: Unknown Consultations: Surgeon, and vascular surgeon Medication Reconciliation New Medications: Lisinopril (Lisinopril) 2.5 Mg Tab 2.5 MG PO QAM for 30 Days, #30 TAB Warfarin Sod (Coumadin) 5 Mg Tab 5 MG PO DAILY@1600 for 30 Days, TAB Changed Medications: Clonazepam (Klonopin) 0.5 Mg Tab 0.25 MG PO HS PRN for Sleep for 3 Days, #3 TAB (Changed from: 0.25-0.5 MG) Continued Medications: Allopurinol (Zyloprim) 300 Mg Tab 300 MG PO DAILY, TAB Carbidopa/Levodopa (Sinemet 25MG/100MG) Tab 1.5 TAB PO TID for 30 Days, TAB Cholecalciferol (Vitamin D3) 2,000 Unit Cap 2000 UNITS PO DAILY for 90 Days, CAP 3 Refills Cyanocobalamin (Vitamin B12) 1,000 Mcg Tab 1000 MCG PO DAILY for 30 Days Gabapentin (Neurontin) 300 Mg Cap 300 MG PO QID, CAP Miconazole Nitrate (Desenex Shake Powder) 43 Appln/43 Gm Powd 1 APPLN EXT BID PRN for Affected Skin Folds for 30 Days Ondansetron Hcl (Zofran) 4 Mg Tab 4 MG PO q6hrs PRN for Nausea, TAB Polyethylene Glycol 3350 (Bulk (Polyethylene Glycol 3350) 1 Pow Pow 17 GM PO DAILY PRN for Constipation, #255 GM Ranitidine (Zantac) 150 Mg Tab 150 MG PO BID, TAB Sertraline (Zoloft) 25 Mg Tab 1 TAB PO DAILY for 30 Days, #30 TAB 2 Refills Triamterene/Hctz (Triamterene/Hctz 37.5-25MG) 1 Tab Tab 0.5 TAB PO DAILY for 30 Days, #15 TAB 0 Refills Discontinued Medications: Aspirin (Aspirin Ec) 81 Mg Tab 81 MG PO DAILY Discharge Exam Doing okay, feel more energetic, tolerate diet, up and walk, Review of Systems: Constitutional: No fever, No chills, No sweats, No weight loss, No weakness , No fatigue, No problem reported Eyes: No worsening of vision, No eye pain, No redness, No discharge, No diplopia, No problem reported ENT: No hearing loss, No unusual epistaxis, No nasal symptoms, No sore throat, No tinnitus, No dental problems, No trouble swallowing, No problem reported Respiratory: No cough, No sputum, No wheezing, No shortness of breath, No dyspnea on exertion, No dyspnea at rest, No hemoptysis, No problem reported Cardiovascular: No chest pain, No orthopnea, No PND, No edema, No claudication, No palpitations, No problem reported Abdomen: No pain, No nausea, No vomiting, No diarrhea, No constipation, No GI bleeding, No problem reported Genitourinary - Male: No hematuria, No dysuria, No urinary frequency, No urinary urgency, No urinary hesitancy, No urinary retention, No urinary incontinence, No penile discharge, No lesions, No impotence, No problem reported Neurologic: No memory loss, No paralysis, No weakness, No numbness/tingling , No vertigo, No balance problems, No problem reported Psychiatric: No depression symptoms, No anhedonism, No anxiety, No insomnia , No substance abuse, No problem reported Endocrine: No fatigue, No excessive thirst, No excessive urination, No problem reported Hematologic / Lymphatic: No abnormal bleeding/bruising, No clotting problems , No swollen lymph nodes, No night sweats, No problem reported Integumentary: No rash, No itch, No new/changing skin lesions, No color change, No bleeding, No problem reported Physical Exam: General Appearance: WD/WN, no apparent distress, + pertinent finding (frail , mild older than age) Eyes: normal inspection, PERRL, EOMI ENT: normal ENT inspection, hearing grossly normal, TMs normal Neck: supple, no adenopathy, thyroid normal Respiratory/Chest: chest non-tender, no respiratory distress, no accessory muscle use, + decreased breath sounds Cardiovascular: regular rate, rhythm, no edema, no gallop, no JVD, no murmur , normal peripheral pulses Abdomen / GI: normal bowel sounds, non tender, soft, no organomegaly, no pulsatile mass Extremities: normal inspection, no calf tenderness, normal capillary refill Neurologic/Psychiatric: 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 Continue stable Minimal elevated lipase upon admission, possible secondary to dehydration , rechecked lipase, had down, lactic acid 1.1, mild leukocytosis d/w surgeon, abd cT showed bowel distention is not new, estrada not feel has ischemic events going on surgeon recs clear liquid diet,, has advanced as tolerated, continue tolerated well Possible GERD and Was complaining heartburn 2 days ago with nausea and vomiting 1, KUB was not remarkable, totally resolved continue home ranitidine , and add Maalox as needed for heartburn Possible mesenteric venous thrombosis , possible from recent surgery , has started Coumadin for anticoagulation, need to check PT INR while in rehab Per Dr. Vivas, Vascular surgeon, possible only need 3 month of coumadin, and no need Lovenox bridging upon discharge stable because patient has no fever no chills, no reported abdominal pain, no nausea vomiting for now, and tolerated diet - Patient has recently had CT abd with contrast so will attempt to visualize flow of mesenteric arteries and this possible venous thrombosis with US mesenteric - mesenteric duplex US this am is not conclusive, reported: "Nondiagnostic evaluation of the mesenteric venous vasculature due to overlying bowel content. Unremarkable venous flow characteristics of the upper abdomen", discussed [facility] GI service, they recommend vascular surgeon consultation, dr Vivas, who also reviewed CT scan. No vascular surgical intervention recommended., he recs treat with anticoagulation if safe to do so, Yesterday I discussed with patient, and patient's daughter Victoria and son in bedside, discussed the risk and benefit of Coumadin for anticoagulation, daughter fully understand and agreed to start Coumadin Accelerated hypertension with history of HTN, blood pressure in normal range - Continue triamterene/ HCTZ PO , add lisinopril 2.5 mg by mouth daily, patient has diabetic, this medicine will benefit for the prevention of diabetic kidney disease - will have hydralazine prn for systolic > 180 DMII - patient has been of his medications for Dm, blood glucose fairly controlled - Continue monitor the BSG and if the patient has consistently elevated BSG - continue sliding scale, check a1c Parkinson's Anxiety Depression LEN Gout The above condition is stable we'll continue current medication DVT Prophylaxis On heparin subcutaneous d/w'ed pt and daughter of care plan, answer all questions, daughter okay to rehabilitation per PT OT evaluation ux design manager talk to patient and daughter already, referral to [facility], with the Center crest as back up full code, but dose not want to prolonged life support Patient discharged today in stable condition Instructions / Follow-Up you have Abdominal pain secondary to colonic distention; you possible GERD with heartburn , you can continue home Ranitidine , and add Maalox as needed for heartburn you have 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 Vivas, Vascular surgeon, possible only need 3 month of coumadin, and no need Lovenox bridging [facility] please call to Dr. Vivas's office to arrange to be seen in 1-2 week fall precaution - you need to follow up with your primary care physician in 1 week, - Follow up your surgeon as instructed - take medication as instructed, never overdose or any misuse, or take with alcohol, because misuse of medicine may cause organ damage or , call your primary care physician if have questions of medicaitons. - call your primary care physician OR go to local emergency room if has any fever/chill, chest pain, shortness of breathing, nausea/vomiting/abdominal pain , facial droop/slurry speech/local weakness, or if has any questions. - diet as instructed - you need to follow up with your subspecialist - you should understand that it is important to follow up the above instruction , and "not following the above instruction" may cause delayed or missed care of your medical conditions which may cause permanent organ damage and even . Total Time Spent: Greater than 30 minutes This includes examination of the patient, discharge planning, medication reconciliation, and communication with other providers. Discharge Instructions Please refer to the electronic Patient Visit Report (Discharge Instructions) for additional information. Additional Copies To Gianni Vivas M.D.; John Rayo M.D.
[2017-01-04] MEDS: WARFARIN SOD 5 MG TAB PO SCH (16:06)
[2017-01-04] MEDS: MICONAZOLE NITRATE POWDER 43 GM EXT PRN (16:07)
[2017-01-04 18:01] VITALS: BP 146/69; PULSE 65; TEMP 36.7; O2SAT 96
--- NOTE | 2017-01-09 13:26 | EDITING REQUIRED CODING QUERY ---
Your help is needed for correct coding of this account; please clarify if the patients postoperative ileus documented on the discharge instructions and Dr. Taylor's consult reports was: ( ) expected out of the surgery ( ) unexpected complication from the surgery ( x) other please specify, may be "expected out of the surgery" Thank you for your time, TAD Gomez, VEGETABLE TESTER
== END 2017-01-04 18:30 | DRG 388 ==
LOC: C.EDB 16:38 → C.3E 20:36 → EEVIPCON 20:36 → ENRESERV 20:50 → OBSVTOIN 01-03 20:17
PROVIDERS: ADMIT Hospitalist; ATTEND Hospitalist
DX: K56.7 Ileus, unspecified (principal); I81 Portal vein thrombosis; K63.89 Other specified diseases of intestine; R74.8 Abnormal levels of other serum enzymes; E86.0 Dehydration; R11.2 Nausea with vomiting, unspecified; G20 Parkinson's disease; I10 Essential (primary) hypertension; E11.9 Type 2 diabetes mellitus without complications; K21.9 Gastro-esophageal reflux disease without esophagitis; M10.9 Gout, unspecified; G25.81 Restless legs syndrome; F41.9 Anxiety disorder, unspecified; F32.9 Major depressive disorder, single episode, unspecified; G47.33 Obstructive sleep apnea (adult) (pediatric); E66.9 Obesity, unspecified; Z68.31 Body mass index [BMI] 31.0-31.9, adult; Z91.81 History of falling; Z90.49 Acquired absence of other specified parts of digestive tract; Z99.89 Dependence on other enabling machines and devices; Z96.651 Presence of right artificial knee joint; Z87.891 Personal history of nicotine dependence; Z79.82 Long term (current) use of aspirin; Z79.899 Other long term (current) drug therapy

== ENCOUNTER → 2017-01-08 | Outpatient (CLI) | payer OTHER ==
[~2017-01-08] MED LIST changes: +ACET-1311 PO; -ASPI81TA28 PO; +CMD5 PO; +LDDP5 TD; +LSN25 PO; +SNM/25100 PO; +VLTG EXT
[2017-01-08 10:35] LABS: BASO % 0.2 %; BASO ABS # 0.02 K/uL (0-0.2); COMPLETE YES; EOS % 1.2 %; HEMATOCRIT 38.7 % (42-52); IG% 0.6 %; LYMPH % 20.3 %; LYMPH ABS # 2.13 K/uL (1.2-3.4); MEAN CELL VOLUME 96.3 fL (80-100); MEAN CORPUSCULAR HEMOGLOBIN 30.3 pg (25-34); MEAN CORPUSCULAR HGB CONC 31.5 g/dl (32-36); MEAN PLATELET VOLUME 10.3 fL (7.4-10.4); MONO % 12.4 %; NEUT % 65.3 %; PLATELET COUNT 347 K/uL (130-400); RED BLOOD COUNT 4.02 M/uL (4.7-6.1)
[2017-01-08 10:45] LABS: ALT/SGPT 23 U/L (12-78); AST/SGOT 19 U/L (15-37); BLOOD UREA NITROGEN 18 mg/dl (7-18); BUN/CREATININE RATIO 16.2 (10-20); CALCIUM 9.3 mg/dl (8.5-10.1); CARBON DIOXIDE 30 mmol/L (21-32); CHLORIDE 101 mmol/L (98-107); GLUCOSE 125 mg/dl (70-99); MAGNESIUM 2.2 mg/dl (1.8-2.4); POTASSIUM 3.9 mmol/L (3.5-5.1); SODIUM 136 mmol/L (136-145)
[2017-01-08 10:48] LABS: INR 1.9 (0.9-1.1); PROTHROMBIN TIME (PATIENT) 21.4 SECONDS (9.0-12.0)
[2017-01-08 10:50] LABS: ALB/GLOB RATIO 0.8 (0.9-2); ALKALINE PHOSPHATASE 109 U/L (45-117)
== END ==
LOC: C.LABCC 10:01
PROVIDERS: ATTEND Internal Medicine
DX: D64.9 Anemia, unspecified (principal); E88.09 Other disorders of plasma-protein metabolism, not elsewhere classified

== ENCOUNTER → 2017-01-12 | Outpatient (CLI) | payer OTHER ==
[2017-01-12 08:41] LABS: INR 2.2 (0.9-1.1); PROTHROMBIN TIME (PATIENT) 24.2 SECONDS (9.0-12.0)
== END ==
LOC: C.LABCC 08:03
PROVIDERS: ATTEND Internal Medicine
DX: I48.91 Unspecified atrial fibrillation (principal)

== ENCOUNTER 2017-01-18 12:58 | Inpatient (IN) | payer OTHER ==
[~2017-01-18] VITALS: Ht 182.9 cm; Wt 95.0 kg
[~2017-01-18 12:58] MED LIST changes: -ACET-1311 PO; -LDDP5 TD; -SNM/25100 PO; -VLTG EXT
[2017-01-18] MEDS ORDERED: SODIUM CHLORIDE 0.9% 1000ML 1,000 ML IV SCH (13:14)
--- NOTE | 2017-01-18 14:01 | DIAGNOSTIC IMAGING REPORT ---
CHEST ONE VIEW PORTABLE CLINICAL HISTORY: Altered mental status. COMPARISON STUDY: Chest radiograph December 31, 2016. FINDINGS: Mild left basilar opacity favors atelectasis. Lung volumes are diminished. Mild cardiomegaly is unchanged. There is no evidence of pulmonary edema. No pneumothorax is identified. Exam is compromised by motion artifact. There are possible small bilateral pleural effusions. Prominent upper abdominal bowel loop may reflect a distended colonic loop, as shown on prior studies. IMPRESSION: 1. Possible small bilateral pleural effusions. 2. Diminished lung volumes with left basilar atelectasis. 3. Suspected colonic distention within visualized portions of the upper abdomen. This is partially imaged on this exam and was shown on prior abdominal CT of December 31, 2016. Electronically signed by: Kentrell Rivera M.D. 01/18/2017 2:00 PM Dictated Date/Time: 01/18/2017 1:57 PM
[2017-01-18 14:13] LABS: BASO % 0.2 %; BASO ABS # 0.02 K/uL (0-0.2); COMPLETE YES; EOS % 1.4 %; IG% 0.5 %; LYMPH % 16.8 %; LYMPH ABS # 1.86 K/uL (1.2-3.4); MEAN CELL VOLUME 91.6 fL (80-100); MEAN CORPUSCULAR HEMOGLOBIN 30.7 pg (25-34); MEAN CORPUSCULAR HGB CONC 33.5 g/dl (32-36); MEAN PLATELET VOLUME 10.3 fL (7.4-10.4); MONO % 14.8 %; NEUT % 66.3 %; PLATELET COUNT 273 K/uL (130-400); RED BLOOD COUNT 3.71 M/uL (4.7-6.1); WHITE BLOOD COUNT 11.05 K/uL (4.8-10.8)
[2017-01-18] MEDS ORDERED: ACET-1311 PO (14:17)
[2017-01-18 14:22] LABS: URINE APPEARANCE CLEAR (CLEAR); URINE BILIRUBIN NEG (NEG); URINE COLOR YELLOW; URINE NITRITE NEG (NEG); URINE SPECIFIC GRAVITY 1.018 (1.000-1.030); UROBILINOGEN NEG (NEG); ZZURINE CULT IF INDIC CATH NO
[2017-01-18 14:23] LABS: INR 3.4 (0.9-1.1); PARTIAL THROMBOPLASTIN RATIO 1.7; PROTHROMBIN TIME (PATIENT) 38.4 SECONDS (9.0-12.0)
[2017-01-18 14:26] LABS: MANUAL MICROSCOPIC REQUIRED? NO; REVIEW REQ? NO
--- NOTE | 2017-01-18 14:28 | DIAGNOSTIC IMAGING REPORT ---
HEAD CT NONCONTRAST CT DOSE: 1074.96 mGy.cm HISTORY: Altered mental status. Intermittent right-sided weakness. TECHNIQUE: Multiaxial CT images of the head were performed without the use of intravenous contrast. Automated exposure control was utilized for this study. A dose lowering technique was utilized adhering to the principles of ALARA. Comparison: Head CT 07/11/2016. Findings: Suboptimal evaluation the brain due to the motion artifact. The calvarium and skull base are intact. There is no mass, hematoma, midline shift, acute infarct. White matter hypodensity is nonspecific but suggestive of microvascular ischemic change. The ventricles and sulci demonstrate mild age-related involutional changes. Impression: Motion artifact. No definite acute intracranial abnormality. Consider repeat study if the patient symptoms continue to progress. Electronically signed by: Claude Smith M.D. 01/18/2017 2:26 PM Dictated Date/Time: 01/18/2017 2:21 PM
[2017-01-18 14:35] LABS: ALT/SGPT 7 U/L (12-78); AST/SGOT 14 U/L (15-37); BLOOD UREA NITROGEN 14 mg/dl (7-18); CALCIUM 9.1 mg/dl (8.5-10.1); CARBON DIOXIDE 25 mmol/L (21-32); CHLORIDE 101 mmol/L (98-107); GLUCOSE 110 mg/dl (70-99); POTASSIUM 4.1 mmol/L (3.5-5.1); SODIUM 133 mmol/L (136-145)
[2017-01-18 14:40] LABS: ALB/GLOB RATIO 0.8 (0.9-2); ALKALINE PHOSPHATASE 101 U/L (45-117); CKMB/CK RATIO 0.9 (0-3.0)
[2017-01-18] MEDS ORDERED: OPTIRAY 320 IV PRN (15:00)
--- NOTE | 2017-01-18 15:51 | DIAGNOSTIC IMAGING REPORT ---
ABD/PELVIS IV CONTRAST ONLY CLINICAL HISTORY: 76 years-old Male presenting with left side chest/abd injury. TECHNIQUE: Multidetector CT of the abdomen and pelvis was performed after the administration of intravenous contrast. IV contrast: 94 mL of Optiray 320. A dose lowering technique was used consistent with the principles of ALARA (as low as reasonably achievable). COMPARISON: 12/31/2016. CT DOSE (mGy.cm): The estimated cumulative dose is 2165.[address] head, CT chest. FINDINGS: The examination is slightly degraded by motion artifact, which decreases image quality and diagnostic sensitivity. Hot Top Liner Helper topogram: Gaseous distention of bowel. Lung bases: Extensive bibasilar consolidation increased from prior. Small left pleural effusion. Multichamber enlargement of the heart. Aortic valve atherosclerosis. No pericardial effusion. Liver: Normal morphology. No liver lesion. Patent hepatic vasculature. Biliary: No intrahepatic or extrahepatic biliary ductal dilatation. Normal gallbladder. Pancreas: Mild parenchymal atrophy. Duodenal diverticulum noted in the region of the pancreatic head. Spleen: Parenchymal calcification, possibly suggesting old granulomatous disease. Adrenal glands: Nonspecific nodular thickening of the adrenal glands. Kidneys and ureters: Exophytic 8 cm simple appearing left renal cyst with lobular extension into the renal sinus. No hydronephrosis. Ureters normal. Bladder: Mild circumferential bladder wall thickening. Pelvic organs: Prostate enlargement likely secondary to benign prostatic hyperplasia. Bowel: Anastomosis noted in the region of the upper rectum likely indicating prior sigmoidectomy. Moderate stool burden throughout the colon, which is also mildly distended with gas. Ileocolic anastomosis at the level of the hepatic flexure, where there is associated minimal surrounding stranding, possibly indicating chronic scarring/adhesions. No bowel obstruction. Small bowel is not significantly distended. Duodenal diverticulum at the level of pancreatic head suggested. No pneumatosis. Peritoneal cavity: The previously noted collection immediately superior to the sigmoid anastomosis has slightly decreased in size now measuring 4.1 x 1.4 cm, previously 4.4 x 2.4 cm. A small focus of gas is noted within this collection. Gas within the collection appears new from prior. Vasculature: Interval opacification of the jejunal vein draining into the superior mesenteric vein without evidence of thrombus on the current exam. Atherosclerosis of the normal caliber abdominal aorta. Lymph nodes: No enlarged lymph nodes in the abdomen or pelvis. Abdominal wall: Postsurgical changes along the midline ventral abdominal wall. Musculoskeletal: Degenerative changes of the spine. IMPRESSION: 1. No evidence of acute intra-abdominal injury. 2. Postsurgical changes of sigmoidectomy with interval decrease in size of the gas and fluid containing collection immediately superior to the anastomosis. This fluid collection remains concerning for an abscess secondary to anastomotic leak, especially given the presence of gas, which is new from prior. 3. Interval resolution of previously demonstrated filling defect within a branch of the superior mesenteric vein. 4. Persistent colonic distention with stool and gas, suggesting colonic ileus. Electronically signed by: John Alejandre M.D. 01/18/2017 3:49 PM Dictated Date/Time: 01/18/2017 3:39 PM
--- NOTE | 2017-01-18 16:04 | DIAGNOSTIC IMAGING REPORT ---
CT OF THE CHEST WITH IV CONTRAST CLINICAL HISTORY: Left-sided chest and abdominal pain following injury. COMPARISON STUDY: Chest radiograph performed earlier today and chest CT February 06, 2014. TECHNIQUE: Following IV administration of 94 mL of Optiray-320, helical axial images of the chest were obtained. Sagittal and coronal reconstructions were viewed as well as maximal intensity projections on an independent 3-D workstation. A dose lowering technique was utilized adhering to the principles of ALARA. CT DOSE: 2165.58 mGy.cm FINDINGS: There is no evidence of traumatic injury to the thoracic aorta. The heart is moderately enlarged. No enlarged thoracic lymph nodes are identified. There is no pneumothorax. A small left pleural effusion is present. Linear and groundglass opacities within lungs favor atelectasis. No acute thoracic spine fracture is present. There are acute minimally displaced fractures of the left fifth and seventh ribs as well as a nondisplaced fracture of the lateral left sixth rib. These are acute. There are additional old left-sided rib fractures. Calcified right lower lobe granuloma is present. Lungs are suboptimally assessed due to respiratory motion. IMPRESSION: 1. Acute mildly displaced fractures of the lateral left fifth and seventh ribs and acute nondisplaced fracture of the lateral left sixth rib. No pneumothorax. Small left pleural effusion may reflect a small hemothorax given the rib fractures. 2. Subpleural and ground glass opacities which favor atelectasis. An infectious process is considered less likely. 3. No additional acute traumatic findings within the chest. Electronically signed by: Kentrell Rivera M.D. 01/18/2017 4:03 PM Dictated Date/Time: 01/18/2017 3:53 PM
--- NOTE | 2017-01-18 17:01 | EMERGENCY ROOM VISIT NOTE ---
ED Visit Note First contact with patient: 13:05 I did evaluate and examine this patient myself. I did guide management for the patient. I agree with the APC's assessment as discussed. Please see the APC's dictation for further details. I did independently review the x-rays, twelve- lead EKG, CAT scan and blood work. The patient will be hospitalized for further evaluation.
[2017-01-18] MEDS ORDERED: ACETAMINOPHEN 325 MG TAB PO PRN (18:00)
[2017-01-18] MEDS ORDERED: MICONAZOLE NITRATE POWDER 43 GM EXT PRN (18:00)
[2017-01-18] MEDS ORDERED: ONDANSETRON INJ 2 MG/ML 2 ML VIAL IV PRN (18:00)
[2017-01-18] MEDS ORDERED: DICLOFENAC SOD 1% GEL 100 GM TUBE EXT PRN (18:00)
[2017-01-18] MEDS ORDERED: ACETAMINOPHEN IV 100 ML IV PRN (18:00)
--- NOTE | 2017-01-18 18:50 | Surgery Consultation ---
Consultation Date of Consultation: Jan 18, 2017. Attending Physician: History of Present Illness Kendell Montalvo is a 76 year old man with history of sigmoid volvulus s/p resection with anastomosis by Dr. Taylor. He was subsequently found to have a small fluid collection adjacent to the anastomosis, which was contained and was managed non operatively. He was seen in clinic by Dr. Taylor yesterday, at which time he was doing well. Per his daughter, patient started acting abnormally yesterday afternoon - was "twitching" more than usual, and acting confused. He fell in the evening, and was subsequently brought to the ED today for evaluation. A CT scan was completed of his head, chest, abdomen and pelvis ; he was found to have multiple rib fractures on the left side without associated hemo/pnuemothorax. The fluid collection adjacent to the anastomosis was again seen - a bit smaller in size, but now with air bubbles in the collection, new from prior. Per patient's daughter, he has not complained of any abdominal pain. Has been eating normally, no nausea or vomiting reported. Having BMs. No recent fever, chills, cough, chest pain, N/V, urinary abnormalities, melena / hematochezia. On exam, patient denies abdominal pain; abdomen is soft, non distended, non tender to palpation. Past Medical/Surgical History Medical Problems: (1) Abdominal distension Status: Acute (2) Rhabdomyolysis Status: Acute (3) Sigmoid volvulus Status: Acute (4) Vomiting Status: Acute (5) Weakness Status: Acute Social History Problems: (1) Status post partial colectomy Status: Acute Family History Diabetes mellitus FH: breast cancer Social History Smoking Status: Never Smoker Drug Use: none Marital Status: , Housing Status: lives with significant other Occupation Status: retired Allergies Coded Allergies: No Known Allergies (Verified , 01/18/17) Home Medications Scheduled Allopurinol (Zyloprim), 300 MG PO DAILY Carbidopa/Levodopa (Sinemet 25MG/100MG), 1.5 TAB PO TID Cholecalciferol (Vitamin D3), 2,000 UNITS PO DAILY Cyanocobalamin (Vitamin B12), 1,000 MCG PO DAILY Gabapentin (Neurontin), 300 MG PO QID Lisinopril (Lisinopril), 2.5 MG PO QAM Ranitidine (Zantac), 150 MG PO BID Sertraline (Zoloft), 50 MG PO DAILY Triamterene/Hctz (Triamterene/Hctz 37.5-25MG), 0.5 TAB PO DAILY Warfarin Sod (Coumadin), 5 MG PO DAILY@1600 Scheduled PRN Clonazepam (Klonopin), 0.25 MG PO HS PRN for Sleep Miconazole Nitrate (Desenex Shake Powder), 1 APPLN EXT BID PRN for Affected Skin Folds Ondansetron Hcl (Zofran), 4 MG PO q6hrs PRN for Nausea Polyethylene Glycol 3350 (Bulk (Polyethylene Glycol 3350), 17 GM PO DAILY PRN for Constipation Miscellaneous Medications Acetaminophen (Tylenol), 650 MG PO Current Inpatient Medications Current Inpatient Medications Medications (Trade) Dose Ordered Sig/[place] Route Start Time Stop Time Status Last Admin Dose Admin Sodium Chloride 1,000 ml @ 200 mls/hr Q5H IV 01/18/17 13:14 02/17/17 13:13 01/18/17 14:02 200 MLS/HR Ioversol (Optiray 320) 125 ml UD PRN IV 01/18/17 15:00 01/22/17 14:59 Acetaminophen (Tylenol Tab) 650 mg Q4H PRN PO 01/18/17 18:00 02/17/17 17:59 Carbidopa/Levodopa (Sinemet 25/ 100MG Tab) 1.5 tab TID PO 01/18/17 21:00 02/17/17 20:59 Gabapentin (Neurontin Cap) 300 mg QID PO 01/18/17 21:00 02/17/17 20:59 Miconazole Nitrate (Desenex Powder) 1 appln BID PRN EXT 01/18/17 18:00 02/17/17 17:59 Sertraline HCl (Zoloft Tab) 50 mg DAILY PO 01/19/17 09:00 02/18/17 08:59 Warfarin Sodium (Coumadin Tab) 5 mg DAILY@1600 PO 01/19/17 16:00 02/18/17 15:59 Famotidine 20 mg/ Dextrose 102 ml @ 200 mls/hr Q12H IV 01/18/17 18:00 02/17/17 17:59 UNV Ondansetron HCl (Zofran Inj) 4 mg Q6H PRN IV 01/18/17 18:00 02/17/17 17:59 Acetaminophen 100 ml @ 400 mls/hr Q8H PRN IV 01/18/17 18:00 02/17/17 17:59 Potassium Chloride/Sodium Chloride 1,000 ml @ 100 mls/hr Q10H IV 01/18/17 17:57 02/17/17 17:56 UNV Lidocaine (Lidoderm Patch 5%) 1 patch QAM TD 01/19/17 09:00 02/18/17 08:59 Miscellaneous (Remove Lidoderm Patch) 1 ea DAILY@21 N/A 01/18/17 21:00 02/17/17 20:59 Diclofenac Sodium (Voltaren 1% Top Gel) 1 appln QID PRN EXT 01/18/17 18:00 02/17/17 17:59 Review of Systems Constitutional: No fever, No chills Respiratory: No cough, No shortness of breath Cardiovascular: No chest pain Abdomen: No pain, No nausea, No vomiting, No diarrhea, No constipation, No GI bleeding Neurologic: + problem reported (confusion, twitching) Physical Exam Date Time Temp Pulse Resp B/P (MAP) Pulse Ox O2 Delivery O2 Flow Rate FiO2 01/18/17 18:08 83 27 90 01/18/17 18:01 126/89 01/18/17 17:38 80 17 91 01/18/17 17:31 102/65 01/18/17 17:24 85 01/18/17 17:08 84 24 98 01/18/17 17:02 134/59 01/18/17 16:38 77 24 01/18/17 16:33 94 Nasal Cannula 2.0 01/18/17 16:33 115/80 01/18/17 16:31 81 21 88 01/18/17 16:01 77 23 129/67 93 01/18/17 14:56 98 24 115/68 96 Nasal Cannula 2.0 01/18/17 13:48 116/72 01/18/17 13:43 80 21 96 01/18/17 13:31 119/64 01/18/17 13:28 37.1 86 24 138/67 85 Room Air 01/18/17 13:28 82 21 95 01/18/17 13:21 95 Nasal Cannula 2.0 01/18/17 13:19 82 8/31/17 13:05 138/67 General Appearance: WD/WN, no apparent distress Head: normocephalic Neck: supple Respiratory/Chest: lungs clear, normal breath sounds, no respiratory distress Cardiovascular: regular rate, rhythm Abdomen/GI: normal bowel sounds, non tender, soft, no organomegaly Neurologic/Psych: alert, + pertinent finding (intermittent twitching of extremities noted, listing to right side) Skin: normal color, warm/dry, no rash Laboratory Results Last 24 Hours Test 01/18/17 12:45 01/18/17 13:14 01/18/17 13:45 01/18/17 16:33 White Blood Count 11.05 K/uL Red Blood Count 3.71 M/uL Hemoglobin 11.4 g/dL Hematocrit 34.0 % Mean Corpuscular Volume 91.6 fL Mean Corpuscular Hemoglobin 30.7 pg Mean Corpuscular Hemoglobin Concent 33.5 g/dl Platelet Count 273 K/uL Mean Platelet Volume 10.3 fL Neutrophils (%) (Auto) 66.3 % Lymphocytes (%) (Auto) 16.8 % Monocytes (%) (Auto) 14.8 % Eosinophils (%) (Auto) 1.4 % Basophils (%) (Auto) 0.2 % Neutrophils # (Auto) 7.33 K/uL Lymphocytes # (Auto) 1.86 K/uL Monocytes # (Auto) 1.64 K/uL Eosinophils # (Auto) 0.15 K/uL Basophils # (Auto) 0.02 K/uL RDW Standard Deviation 46.2 fL RDW Coefficient of Variation 13.8 % Immature Granulocyte % (Auto) 0.5 % Immature Granulocyte # (Auto) 0.05 K/uL Prothrombin Time 38.4 SECONDS Prothromb Time International Ratio 3.4 Activated Partial Thromboplast Time 44.1 SECONDS Partial Thromboplastin Ratio 1.7 Sodium Level 133 mmol/L Potassium Level 4.1 mmol/L Chloride Level 101 mmol/L Carbon Dioxide Level 25 mmol/L Anion Gap 7.0 mmol/L Blood Urea Nitrogen 14 mg/dl Creatinine 1.10 mg/dl Est Creatinine Clear Calc Drug Dose 70.0 ml/min Estimated GFR () 75.2 Estimated GFR (Non- 64.9 BUN/Creatinine Ratio 13.0 Random Glucose 110 mg/dl Calcium Level 9.1 mg/dl Total Bilirubin 0.8 mg/dl Aspartate Amino Transf (AST/SGOT) 14 U/L Alanine Aminotransferase (ALT/SGPT) 7 U/L Alkaline Phosphatase 101 U/L Total Creatine Kinase 147 U/L Creatine Kinase MB 1.3 ng/ml Creatine Kinase MB Ratio 0.9 Troponin I < 0.015 ng/ml Total Protein 7.2 gm/dl Albumin 3.3 gm/dl Globulin 3.9 gm/dl Albumin/Globulin Ratio 0.8 Urine Color YELLOW Urine Appearance CLEAR Urine pH 6.0 Urine Specific [place] 1.018 Urine Protein NEG Urine Glucose (UA) NEG Urine Ketones NEG Urine Occult Blood NEG Urine Nitrite NEG Urine Bilirubin NEG Urine Urobilinogen NEG Urine Leukocyte Esterase NEG Lactic Acid Level 1.1 mmol/L 01/18/17 CXR: IMPRESSION: 1. Possible small bilateral pleural effusions. 2. Diminished lung volumes with left basilar atelectasis. 3. Suspected colonic distention within visualized portions of the upper abdomen. This is partially imaged on this exam and was shown on prior abdominal CT of December 31, 2016. 01/18/17 CT Head: Impression: Motion artifact. No definite acute intracranial abnormality. Consider repeat study if the patient symptoms continue to progress. 01/18/17 CT Chest: IMPRESSION: 1. Acute mildly displaced fractures of the lateral left fifth and seventh ribs and acute nondisplaced fracture of the lateral left sixth rib. No pneumothorax. Small left pleural effusion may reflect a small hemothorax given the rib fractures. 2. Subpleural and ground glass opacities which favor atelectasis. An infectious process is considered less likely. 3. No additional acute traumatic findings within the chest. 01/18/17 CT Abdomen / Pelvis: IMPRESSION: 1. No evidence of acute intra-abdominal injury. 2. Postsurgical changes of sigmoidectomy with interval decrease in size of the gas and fluid containing collection immediately superior to the anastomosis. This fluid collection remains concerning for an abscess secondary to anastomotic leak, especially given the presence of gas, which is new from prior. 3. Interval resolution of previously demonstrated filling defect within a branch of the superior mesenteric vein. 4. Persistent colonic distention with stool and gas, suggesting colonic ileus. Assessment & Plan Kendell Montalvo is a 76 year old man with history of sigmoid volvulus s/p resection and anastomosis who presents to the ED with confusion and a recent fall at home. CT head negative for acute abnormalities. Found to have multiple rib fractures on the left side. Also found to have a persistent, contained fluid collection adjacent to the anastomosis (seen on prior imaging a few weeks ago, now fluid collection is a bit smaller but contains air, which was not present before). Also has signs of an ileus with distended loops of bowel. Collection seems to be contained, and does not seem to be causing his current issues. He is afebrile, vitals stable on 2L O2 via NC. No leukocytosis - labs are within normal limits. -No acute surgical intervention indicated for the fluid collection adjacent to anastomosis; appears well-contained at this time. -Recommend admission to medicine for further workup of confusion -Will need aggressive respiratory therapy and pain control given rib fractures -NPO, IVF hydration, replete electrolytes prn; non operative management of ileus -Surgery will continue to follow -Patient will be discussed with Dr. Taylor in the morning. Maranda Ellis MD 01/18/17
--- NOTE | 2017-01-18 19:07 | History and Physical ---
History & Physical Date & Time of Service: Jan 18, 2017 at 18:46 Chief Complaint: Double Vision Primary Care Physician: Kalie Doctor, Assigned History of Present Illness Source: family, hospital records The patient is a 76-year-old male with most recent hospitalizations from December 14 to December 28 no from January 03 to January 04, during which time he underwent surgery for sigmoid volvulus and had issues with postoperative ileus and question of mesenteric thrombus. He had been discharged from [facility] 6 days ago, and family reports he had been gradually becoming more confused and less interactive, and then worsened yesterday, when he had his first fall, and then had a second fall earlier in the day prior to arrival. His sister reports that he has been leaning toward the right ever since that injury to his left side. She reports that he did not hit his head during this time. His sister does report that since he is been in the emergency department and had gotten IV fluids, that he seems to become more responsive and interactive with her. Past Medical/Surgical History Medical Problems: (1) BENIGN HYPERTENSION Status: Chronic (2) DIAB W KETOACIDOSIS, TYPE II OR UNSPEC TYPE, UNCONTROLLED Status: Chronic (3) DIVERTICULOSIS COLON (W/O MENT OF HEMORRHAGE) Status: Chronic (4) GOUT NOS Status: Chronic (5) IDIO PERIPH NEURPTHY NOS Status: Chronic (6) MIXED HYPERLIPIDEMIA Status: Chronic Family History Diabetes mellitus FH: breast cancer Social History Smoking Status: Never Smoker Smokeless Tobacco Use: No Alcohol Use: none Drug Use: none Marital Status: , Housing status: lives with family Occupational Status: retired Immunizations History of Influenza Vaccine: Unknown History of Tetanus Vaccine?: Unknown History of Pneumococcal: Unknown History of Hepatitis B Vaccine: Unknown Multi-Drug Resistant Organisms History of MDRO: No Allergies Coded Allergies: No Known Allergies (Verified , 01/18/17) Home Medications Scheduled Allopurinol (Zyloprim), 300 MG PO DAILY Carbidopa/Levodopa (Sinemet 25MG/100MG), 1.5 TAB PO TID Cholecalciferol (Vitamin D3), 2,000 UNITS PO DAILY Cyanocobalamin (Vitamin B12), 1,000 MCG PO DAILY Gabapentin (Neurontin), 300 MG PO QID Lisinopril (Lisinopril), 2.5 MG PO QAM Ranitidine (Zantac), 150 MG PO BID Sertraline (Zoloft), 50 MG PO DAILY Triamterene/Hctz (Triamterene/Hctz 37.5-25MG), 0.5 TAB PO DAILY Warfarin Sod (Coumadin), 5 MG PO DAILY@1600 Scheduled PRN Clonazepam (Klonopin), 0.25 MG PO HS PRN for Sleep Miconazole Nitrate (Desenex Shake Powder), 1 APPLN EXT BID PRN for Affected Skin Folds Ondansetron Hcl (Zofran), 4 MG PO q6hrs PRN for Nausea Polyethylene Glycol 3350 (Bulk (Polyethylene Glycol 3350), 17 GM PO DAILY PRN for Constipation Miscellaneous Medications Acetaminophen (Tylenol), 650 MG PO Review of Systems The patient himself is unable to contribute to his history of present illness or review of systems. His family who was in attendance, relate his story as above. Physical Exam Vital Signs Date Time Temp Pulse Resp B/P (MAP) Pulse Ox O2 Delivery O2 Flow Rate FiO2 01/18/17 18:08 83 27 90 01/18/17 18:01 126/89 01/18/17 17:38 80 17 91 01/18/17 17:31 102/65 01/18/17 17:24 85 01/18/17 17:08 84 24 98 01/18/17 17:02 134/59 01/18/17 16:38 77 24 01/18/17 16:33 94 Nasal Cannula 2.0 01/18/17 16:33 115/80 01/18/17 16:31 81 21 88 01/18/17 16:01 77 23 129/67 93 01/18/17 14:56 98 24 115/68 96 Nasal Cannula 2.0 01/18/17 13:48 116/72 01/18/17 13:43 80 21 96 01/18/17 13:31 119/64 01/18/17 13:28 37.1 86 24 138/67 85 Room Air 01/18/17 13:28 82 21 95 01/18/17 13:21 95 Nasal Cannula 2.0 01/18/17 13:19 82 01/18/17 13:05 138/67 The patient is intermittently opening his eyes, looks disheveled and dehydrated , lying in bed and leaning to his right side, but in no acute distress. HEENT--PERRL, EOMI, mucous membranes and oropharynx dry. Neck--supple, no JVD or bruits, thyroid normal, trachea midline, no adenopathy. Heart--normal S1 and S2, no extra beats, no murmurs, rubs or gallops. Lungs--few coarse breath sounds but overall decreased throughout, no respiratory distress, no accessory muscle use. Abdomen--normal bowel sounds and soft. Tender left fifth through seventh rib areas, no significant abdominal tenderness on exam. Extremities--no cyanosis, clubbing. There is bilateral pretibial and pedal 1+ pitting Edema. There are good distal pulses b/l. Dermatologic--normal skin turgor, normal color, warm and dry. Neurologic--cranial nerves II through XII grossly intact. Rheumatologic--patient moves all extremities. Psychiatric--lethargic, primarily nonresponsive. Diagnostics Laboratory Results Results Past 24 Hours Test 01/18/17 12:45 01/18/17 13:14 01/18/17 13:45 01/18/17 16:33 Range/Units White Blood Count 11.05 4.8-10.8 K/uL Red Blood Count 3.71 4.7-6.1 M/uL Hemoglobin 11.4 14.0-18.0 g/dL Hematocrit 34.0 42-52 % Mean Corpuscular Volume 91.6 80-100 fL Mean Corpuscular Hemoglobin 30.7 25-34 pg Mean Corpuscular Hemoglobin Concent 33.5 32-36 g/dl Platelet Count 273 130-400 K/uL Mean Platelet Volume 10.3 7.4-10.4 fL Neutrophils (%) (Auto) 66.3 % Lymphocytes (%) (Auto) 16.8 % Monocytes (%) (Auto) 14.8 % Eosinophils (%) (Auto) 1.4 % Basophils (%) (Auto) 0.2 % Neutrophils # (Auto) 7.33 1.4-6.5 K/uL Lymphocytes # (Auto) 1.86 1.2-3.4 K/uL Monocytes # (Auto) 1.64 0.11-0.59 K/uL Eosinophils # (Auto) 0.15 0-0.5 K/uL Basophils # (Auto) 0.02 0-0.2 K/uL RDW Standard Deviation 46.2 36.4-46.3 fL RDW Coefficient of Variation 13.8 11.5-14.5 % Immature Granulocyte % (Auto) 0.5 % Immature Granulocyte # (Auto) 0.05 0.00-0.02 K/uL Prothrombin Time 38.4 9.0-12.0 SECONDS Prothromb Time International Ratio 3.4 0.9-1.1 Activated Partial Thromboplast Time 44.1 21.0-31.0 SECONDS Partial Thromboplastin Ratio 1.7 Sodium Level 133 136-145 mmol/L Potassium Level 4.1 3.5-5.1 mmol/L Chloride Level 101 98-107 mmol/L Carbon Dioxide Level 25 21-32 mmol/L Anion Gap 7.0 3-11 mmol/L Blood Urea Nitrogen 14 7-18 mg/dl Creatinine 1.10 0.60-1.40 mg/dl Est Creatinine Clear Calc Drug Dose 70.0 ml/min Estimated GFR () 75.2 Estimated GFR (Non- 64.9 BUN/Creatinine Ratio 13.0 10-20 Random Glucose 110 70-99 mg/dl Calcium Level 9.1 8.5-10.1 mg/dl Total Bilirubin 0.8 0.2-1 mg/dl Aspartate Amino Transf (AST/SGOT) 14 15-37 U/L Alanine Aminotransferase (ALT/SGPT) 7 12-78 U/L Alkaline Phosphatase 101 45-117 U/L Total Creatine Kinase 147 39-308 U/L Creatine Kinase MB 1.3 0.5-3.6 ng/ml Creatine Kinase MB Ratio 0.9 0-3.0 Troponin I < 0.015 0-0.045 ng/ml Total Protein 7.2 6.4-8.2 gm/dl Albumin 3.3 3.4-5.0 gm/dl Globulin 3.9 2.5-4.0 gm/dl Albumin/Globulin Ratio 0.8 0.9-2 Urine Color YELLOW Urine Appearance CLEAR CLEAR Urine pH 6.0 4.5-7.5 Urine Specific [place] Level 1.018 1.000-1.030 Urine Protein NEG NEG Urine Glucose (UA) NEG NEG Urine Ketones NEG NEG Urine Occult Blood NEG NEG Urine Nitrite NEG NEG Urine Bilirubin NEG NEG Urine Urobilinogen NEG NEG Urine Leukocyte Esterase NEG NEG Lactic Acid Level 1.1 0.4-2.0 mmol/L Microbiology Results 01/18/17 Blood Culture, Received Pending 01/18/17 Blood Culture, Received Pending Diagnostic Radiology Patient Name: MILLIE CLEANING V Unit Number: [id number] Dictated: 01/18/171420 Transcribed: 01/18/171420 [facility] Printed Date/Time: [~ rep prt dt]/[~ rep prt tm] [~ rep ct labl] - [~ rep ct ivnm] [facility] [place] [address] Dictated: 01/18/171420 Transcribed: 01/18/171420 [facility] Printed Date/Time: [~ rep prt dt]/[~ rep prt tm] [~ rep ct labl] - [~ rep ct ivnm] [~ rep ct add3]] HEAD CT NONCONTRAST CT DOSE: 1074.96 mGy.cm HISTORY: Altered mental status. Intermittent right-sided weakness. TECHNIQUE: Multiaxial CT images of the head were performed without the use of intravenous contrast. Automated exposure control was utilized for this study. A dose lowering technique was utilized adhering to the principles of ALARA. Comparison: Head CT 07/11/2016. Findings: Suboptimal evaluation the brain due to the motion artifact. The calvarium and skull base are intact. There is no mass, hematoma, midline shift, acute infarct. White matter hypodensity is nonspecific but suggestive of microvascular ischemic change. The ventricles and sulci demonstrate mild age-related involutional changes. Impression: Motion artifact. No definite acute intracranial abnormality. Consider repeat study if the patient symptoms continue to progress. Electronically signed by: Claude Smith M.D. 01/18/2017 2:26 PM Dictated Date/Time: 01/18/2017 2:21 PM The status of this report is Signed. Draft = Not yet reviewed or approved by Radiologist. Signed = Reviewed and approved by Radiologist. <AttendingPhy></AttendingPhy> <FamilyPhy>No Doctor, Assigned</FamilyPhy> < PrimaryPhy>No Doctor, Assigned</PrimaryPhy> <UnitNumber>[id number]</UnitNumber> <VisitNumber>[id number]</VisitNumber> <PatientName>MILLIE CLEANING V</PatientName > <DateOfBirth>1940</DateOfBirth> <Location>[facility]</Location> <ServiceDate> 01/18/17</ServiceDate> <MNE>ESINDI</MNE> <OrderingPhy>Jani Alanis PA-C</ OrderingPhy> <OrderingPhyMNE>f rep ord dr starr</OrderingPhyMNE> <DictatingPhyMNE> f rep dict dr starr</DictatingPhyMNE> <CCListMNE>f rep ct mne</CCListMNE> < AdmittingPhyMNE>f pt admit dr starr</AdmittingPhyMNE> <AttendingPhyMNE>f pt attend dr starr</AttendingPhyMNE> <ConsultingPhyMNE>f pt consult dr starr</ConsultingPhyMNE> <FamilyPhyMNE>f pt fam dr starr</FamilyPhyMNE> <OtherPhyMNE>f pt other dr starr</OtherPhyMNE> < PrimaryPhyMNE>f pt prim care dr starr</PrimaryPhyMNE> <ReferringPhyMNE>f pt referring dr starr</ReferringPhyMNE> Patient Name: MILLIE CLEANING V Unit Number: [id number] Dictated: 01/18/171356 Transcribed: 01/18/171356 [facility] Printed Date/Time: [~ rep prt dt]/[~ rep prt tm] [~ rep ct labl] - [~ rep ct ivnm] [facility] [place] [address] Dictated: 01/18/171356 Transcribed: 01/18/171356 Printed Date/Time: [~ rep prt dt]/[~ rep prt tm] [~ rep ct labl] - [~ rep ct ivnm] [~ rep ct add3]] CHEST ONE VIEW PORTABLE CLINICAL HISTORY: Altered mental status. COMPARISON STUDY: Chest radiograph December 31, 2016. FINDINGS: Mild left basilar opacity favors atelectasis. Lung volumes are diminished. Mild cardiomegaly is unchanged. There is no evidence of pulmonary edema. No pneumothorax is identified. Exam is compromised by motion artifact. There are possible small bilateral pleural effusions. Prominent upper abdominal bowel loop may reflect a distended colonic loop, as shown on prior studies. IMPRESSION: 1. Possible small bilateral pleural effusions. 2. Diminished lung volumes with left basilar atelectasis. 3. Suspected colonic distention within visualized portions of the upper abdomen. This is partially imaged on this exam and was shown on prior abdominal CT of December 31, 2016. Electronically signed by: Kentrell Rivera M.D. 01/18/2017 2:00 PM Dictated Date/Time: 01/18/2017 1:57 PM The status of this report is Signed. Draft = Not yet reviewed or approved by Radiologist. Signed = Reviewed and approved by Radiologist. <AttendingPhy></AttendingPhy> <FamilyPhy>No Doctor, Assigned</FamilyPhy> < PrimaryPhy>No Doctor, Assigned</PrimaryPhy> <UnitNumber>[id number]</UnitNumber> <VisitNumber>[id number]</VisitNumber> <PatientName>MILLIE CLEANING V</PatientName > <DateOfBirth>1940</DateOfBirth> <Location>[facility]</Location> <ServiceDate> 01/18/17</ServiceDate> <MNE>ESINDI</MNE> <OrderingPhy>Jani Alanis PA-C</ OrderingPhy> <OrderingPhyMNE>f rep ord dr starr</OrderingPhyMNE> <DictatingPhyMNE> f rep dict dr starr</DictatingPhyMNE> <CCListMNE>f rep ct mne</CCListMNE> < AdmittingPhyMNE>f pt admit dr starr</AdmittingPhyMNE> <AttendingPhyMNE>f pt attend dr starr</AttendingPhyMNE> <ConsultingPhyMNE>f pt consult dr starr</ConsultingPhyMNE> <FamilyPhyMNE>f pt fam dr starr</FamilyPhyMNE> <OtherPhyMNE>f pt other dr starr</OtherPhyMNE> < PrimaryPhyMNE>f pt prim care dr starr</PrimaryPhyMNE> <ReferringPhyMNE>f pt referring dr starr</ReferringPhyMNE> Patient Name: MILLIE CLEANING V Unit Number: [id number] Dictated: 01/18/171552 Transcribed: 01/18/171552 [facility] Printed Date/Time: [~ rep prt dt]/[~ rep prt tm] [~ rep ct labl] - [~ rep ct ivnm] [facility] [place] [address] Dictated: 01/18/171552 Transcribed: 01/18/171552 [facility] Printed Date/Time: [~ rep prt dt]/[~ rep prt tm] [~ rep ct labl] - [~ rep ct ivnm] [~ rep ct add3]] CT OF THE CHEST WITH IV CONTRAST CLINICAL HISTORY: Left-sided chest and abdominal pain following injury. COMPARISON STUDY: Chest radiograph performed earlier today and chest CT February 06, 2014. TECHNIQUE: Following IV administration of 94 mL of Optiray-320, helical axial images of the chest were obtained. Sagittal and coronal reconstructions were viewed as well as maximal intensity projections on an independent 3-D workstation. A dose lowering technique was utilized adhering to the principles of ALARA. CT DOSE: 2165.58 mGy.cm FINDINGS: There is no evidence of traumatic injury to the thoracic aorta. The heart is moderately enlarged. No enlarged thoracic lymph nodes are identified. There is no pneumothorax. A small left pleural effusion is present. Linear and groundglass opacities within lungs favor atelectasis. No acute thoracic spine fracture is present. There are acute minimally displaced fractures of the left fifth and seventh ribs as well as a nondisplaced fracture of the lateral left sixth rib. These are acute. There are additional old left-sided rib fractures. Calcified right lower lobe granuloma is present. Lungs are suboptimally assessed due to respiratory motion. IMPRESSION: 1. Acute mildly displaced fractures of the lateral left fifth and seventh ribs and acute nondisplaced fracture of the lateral left sixth rib. No pneumothorax. Small left pleural effusion may reflect a small hemothorax given the rib fractures. 2. Subpleural and ground glass opacities which favor atelectasis. An infectious process is considered less likely. 3. No additional acute traumatic findings within the chest. Electronically signed by: Kentrell Rivera M.D. 01/18/2017 4:03 PM Dictated Date/Time: 01/18/2017 3:53 PM The status of this report is Signed. Draft = Not yet reviewed or approved by Radiologist. Signed = Reviewed and approved by Radiologist. <AttendingPhy></AttendingPhy> <FamilyPhy>No Doctor, Assigned</FamilyPhy> < PrimaryPhy>No Doctor, Assigned</PrimaryPhy> <UnitNumber>[id number]</UnitNumber> <VisitNumber>[id number]</VisitNumber> <PatientName>MILLIE CLEANING V</PatientName > <DateOfBirth>1940</DateOfBirth> <Location>[facility]</Location> <ServiceDate> 01/18/17</ServiceDate> <MNE>ESINDI</MNE> <OrderingPhy>Jani Alanis PA-C</ OrderingPhy> <OrderingPhyMNE>f rep ord dr starr</OrderingPhyMNE> <DictatingPhyMNE> f rep dict dr starr</DictatingPhyMNE> <CCListMNE>f rep ct mne</CCListMNE> < AdmittingPhyMNE>f pt admit dr starr</AdmittingPhyMNE> <AttendingPhyMNE>f pt attend dr starr</AttendingPhyMNE> <ConsultingPhyMNE>f pt consult dr starr</ConsultingPhyMNE> <FamilyPhyMNE>f pt fam dr starr</FamilyPhyMNE> <OtherPhyMNE>f pt other dr starr</OtherPhyMNE> < PrimaryPhyMNE>f pt prim care dr starr</PrimaryPhyMNE> <ReferringPhyMNE>f pt referring dr starr</ReferringPhyMNE> Patient Name: MILLIE CLEANING V Unit Number: [id number] Dictated: 01/18/171538 Transcribed: 01/18/171538 [facility] Printed Date/Time: [~ rep prt dt]/[~ rep prt tm] [~ rep ct labl] - [~ rep ct ivnm] [facility] [place] [address] Dictated: 01/18/171538 Transcribed: 01/18/171538 [facility] Printed Date/Time: [~ rep prt dt]/[~ rep prt tm] [~ rep ct labl] - [~ rep ct ivnm] ABD/PELVIS IV CONTRAST ONLY CLINICAL HISTORY: 76 years-old Male presenting with left side chest/abd injury. TECHNIQUE: Multidetector CT of the abdomen and pelvis was performed after the administration of intravenous contrast. IV contrast: 94 mL of Optiray 320. A dose lowering technique was used consistent with the principles of ALARA (as low as reasonably achievable). COMPARISON: 12/31/2016. CT DOSE (mGy.cm): The estimated cumulative dose is 2165.[address] head, CT chest. FINDINGS: The examination is slightly degraded by motion artifact, which decreases image quality and diagnostic sensitivity. Computer Forensics Technician topogram: Gaseous distention of bowel. Lung bases: Extensive bibasilar consolidation increased from prior. Small left pleural effusion. Multichamber enlargement of the heart. Aortic valve atherosclerosis. No pericardial effusion. Liver: Normal morphology. No liver lesion. Patent hepatic vasculature. Biliary: No intrahepatic or extrahepatic biliary ductal dilatation. Normal gallbladder. Pancreas: Mild parenchymal atrophy. Duodenal diverticulum noted in the region of the pancreatic head. Spleen: Parenchymal calcification, possibly suggesting old granulomatous disease. Adrenal glands: Nonspecific nodular thickening of the adrenal glands. Kidneys and ureters: Exophytic 8 cm simple appearing left renal cyst with lobular extension into the renal sinus. No hydronephrosis. Ureters normal. Bladder: Mild circumferential bladder wall thickening. Pelvic organs: Prostate enlargement likely secondary to benign prostatic hyperplasia. Bowel: Anastomosis noted in the region of the upper rectum likely indicating prior sigmoidectomy. Moderate stool burden throughout the colon, which is also mildly distended with gas. Ileocolic anastomosis at the level of the hepatic flexure, where there is associated minimal surrounding stranding, possibly indicating chronic scarring/adhesions. No bowel obstruction. Small bowel is not significantly distended. Duodenal diverticulum at the level of pancreatic head suggested. No pneumatosis. Peritoneal cavity: The previously noted collection immediately superior to the sigmoid anastomosis has slightly decreased in size now measuring 4.1 x 1.4 cm, previously 4.4 x 2.4 cm. A small focus of gas is noted within this collection. Gas within the collection appears new from prior. Vasculature: Interval opacification of the jejunal vein draining into the superior mesenteric vein without evidence of thrombus on the current exam. Atherosclerosis of the normal caliber abdominal aorta. Lymph nodes: No enlarged lymph nodes in the abdomen or pelvis. Abdominal wall: Postsurgical changes along the midline ventral abdominal wall. Musculoskeletal: Degenerative changes of the spine. IMPRESSION: 1. No evidence of acute intra-abdominal injury. 2. Postsurgical changes of sigmoidectomy with interval decrease in size of the gas and fluid containing collection immediately superior to the anastomosis. This fluid collection remains concerning for an abscess secondary to anastomotic leak, especially given the presence of gas, which is new from prior. 3. Interval resolution of previously demonstrated filling defect within a branch of the superior mesenteric vein. 4. Persistent colonic distention with stool and gas, suggesting colonic ileus. Electronically signed by: John Alejandre M.D. 01/18/2017 3:49 PM Dictated Date/Time: 01/18/2017 3:39 PM The status of this report is Signed. Draft = Not yet reviewed or approved by Radiologist. Signed = Reviewed and approved by Radiologist. <AttendingPhy></AttendingPhy> <FamilyPhy>No Doctor, Assigned</FamilyPhy> < PrimaryPhy>No Doctor, Assigned</PrimaryPhy> <UnitNumber>[id number]</UnitNumber> <VisitNumber>[id number]</VisitNumber> <PatientName>MILLIE CLEANING V</PatientName > <DateOfBirth>1940</DateOfBirth> <Location>[facility]</Location> <ServiceDate> 01/18/17</ServiceDate> <MNE>ESINDI</MNE> <OrderingPhy>Jani Alanis PA-C</ OrderingPhy> <OrderingPhyMNE>f rep ord dr starr</OrderingPhyMNE> <DictatingPhyMNE> f rep dict dr starr</DictatingPhyMNE> <CCListMNE>f rep ct elgine</CCListMNE> < AdmittingPhyMNE>f pt admit dr starr</AdmittingPhyMNE> <AttendingPhyMNE>f pt attend dr starr</AttendingPhyMNE> <ConsultingPhyMNE>f pt consult dr starr</ConsultingPhyMNE> <FamilyPhyMNE>f pt fam dr starr</FamilyPhyMNE> <OtherPhyMNE>f pt other dr starr</OtherPhyMNE> < PrimaryPhyMNE>f pt prim care dr starr</PrimaryPhyMNE> <ReferringPhyMNE>f pt referring dr starr</ReferringPhyMNE> EKG EKG shows normal sinus rhythm at 83 bpm, left axis deviation, no change compared to 12/31/2016 Impression Assessment and Plan Altered mental status/dehydration--patient will be admitted to the medical surgical floor. No signs of infection at this time. The patient's sister notes that his interactiveness had improved significantly with the addition of IV fluids in the emergency department. Continue normal saline with KCl 20 mEq 100 mils per hour. Serial CBC with differential, BMP and magnesium levels. Patient's family went to more aggressively encourage patient to keep his fluid intake up. Left 5 through 7 rib fractures, with 5 and 7 mildly displaced-- Lidoderm patch on in the a.m. off in p.m. Voltaren gel to be applied 4 times a day when necessary when the Lidoderm patch is not on. Status post sigmoidectomy for sigmoid volvulus during admission December 14 to December 28. Patient was seen by Dr. Taylor in the outpatient office earlier this week and was told he was progressing appropriately. No antibiotics needed at this time. 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 Hold warfarin 5 mg by mouth daily until INR less than or equal to 2.5. Hypertension --hold lisinopril and triamterene/HCTZ Parkinson's--carbidopa/levodopa 25/100, one half tablets by mouth 3 times a day as soon as patient can take by mouth. Obstructive sleep apnea patient will use own CPAP from home. GERD--until taking by mouth, change ranitidine 150 mg by mouth to famotidine 20 mg IV every 12. GPN--resume gabapentin 3 mg by mouth 4 times a day when taking by mouth. Gout--resume allopurinol 3 mg by mouth daily when taking by mouth. Level of Care Med/Surg Advanced Directives Existing Advance Directive: No Existing Living Will: No Existing Power of Manufacturing Technologist: No Resuscitation Status FULL RESUSCITATION VTE Prophylaxis VTE Risk Assessment Done? Y/N: Yes Risk Level: Moderate Given or contraindicated: Warfarin (Coumadin) Social Service Consult Receiving Home Health
[2017-01-18 19:37] VITALS: BP 128/69; PULSE 79; TEMP 36.9; O2SAT 91; Ht 182.9 cm; Wt 95.0 kg
[2017-01-18] MEDS: FAMOTIDINE IV INJ 20 MG in DEXTROSE 5% 100ML 100 ML IV SCH (20:00)
[2017-01-18] MEDS: NSS + 20MEQ KCL 1000ML 1,000 ML IV SCH (20:00)
[2017-01-18] MEDS: CARBIDOPA/LEVODOPA 25/100MG TAB PO SCH (21:00)
[2017-01-18] MEDS: GABAPENTIN 300 MG CAP PO SCH (21:00)
[2017-01-18] MEDS ORDERED: IV FLUIDS COMPLETED PRN (21:15)
--- NOTE | 2017-01-18 23:00 | EMERGENCY ROOM VISIT NOTE ---
History First contact with patient: 13:05 Chief Complaint: ILLNESS Stated Complaint: ALTERED MENTAL STATUS, DEHYDRATION History of Present Illness The patient is a 76 year old male who presents to the Emergency Room for evaluation of altered mental status. The patient is accompanied by his son and daughter who provide most of the history. Evidently the patient has a history of sigmoid volvulus with colectomy and reanastomosis one month ago. He has been doing fairly well at home and recently was discharged from a alf about 5 days ago. He followed with his family doctor 3 days ago and with his surgeon 2 days ago, and he was doing well. The family indicates that around 1: 30 AM the patient had a fall at home, which was not typical for him. He was acting confused and was not able to operate a flashlight that he has had for several years. He was slurring the names of his children and they had difficulty understanding him. This occurred around 8 AM, roughly 5 hours ago. The patient has been complaining of left-sided rib pain after the fall. He has a dry persistent cough. There is concern for a recent history of urosepsis, although the patient himself has not had fever or chills. The patient's discomfort is currently rated a 7/10. Review of Systems More than 10 systems were reviewed and otherwise negative with the exception of history of present illness. 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 (11) MIXED HYPERLIPIDEMIA (12) Volvulus Family History Diabetes mellitus FH: breast cancer Social History Smoking Status: Former Smoker Smokeless Tobacco Use: No Alcohol Use: none Drug Use: none Marital Status: , Housing Status: lives with significant other Occupation Status: retired Current/Historical Medications Scheduled Allopurinol (Zyloprim), 300 MG PO DAILY Carbidopa/Levodopa (Sinemet 25MG/100MG), 1.5 TAB PO TID Cholecalciferol (Vitamin D3), 2,000 UNITS PO DAILY Cyanocobalamin (Vitamin B12), 1,000 MCG PO DAILY Gabapentin (Neurontin), 300 MG PO QID Lisinopril (Lisinopril), 2.5 MG PO QAM Ranitidine (Zantac), 150 MG PO BID Sertraline (Zoloft), 50 MG PO DAILY Triamterene/Hctz (Triamterene/Hctz 37.5-25MG), 0.5 TAB PO DAILY Warfarin Sod (Coumadin), 5 MG PO DAILY@1600 Scheduled PRN Clonazepam (Klonopin), 0.25 MG PO HS PRN for Sleep Miconazole Nitrate (Desenex Shake Powder), 1 APPLN EXT BID PRN for Affected Skin Folds Ondansetron Hcl (Zofran), 4 MG PO q6hrs PRN for Nausea Polyethylene Glycol 3350 (Bulk (Polyethylene Glycol 3350), 17 GM PO DAILY PRN for Constipation Miscellaneous Medications Acetaminophen (Tylenol), 650 MG PO Physical Exam Vital Signs Date Time Temp Pulse Resp B/P (MAP) Pulse Ox O2 Delivery O2 Flow Rate FiO2 01/18/17 18:01 126/89 01/18/17 17:38 80 17 91 01/18/17 17:31 102/65 01/18/17 17:24 85 01/18/17 17:08 84 24 98 01/18/17 17:02 134/59 01/18/17 16:38 77 24 01/18/17 16:33 94 Nasal Cannula 2.0 01/18/17 16:33 115/80 01/18/17 16:31 81 21 88 01/18/17 16:01 77 23 129/67 93 01/18/17 14:56 98 24 115/68 96 Nasal Cannula 2.0 01/18/17 13:48 116/72 01/18/17 13:43 80 21 96 01/18/17 13:31 119/64 01/18/17 13:28 37.1 86 24 138/67 85 Room Air 01/18/17 13:28 82 21 95 01/18/17 13:21 95 Nasal Cannula 2.0 01/18/17 13:19 82 01/18/17 13:05 138/67 Pain Rating (0-10): 0 Physical Exam VITALS: Vitals are noted on the nurse's note and reviewed by myself. Vital signs stable. GENERAL: Chronically ill-appearing white male who is resting comfortably in his emergency Department bed. He is able to answer simple questions. He does have some minimal slurring of speech without obvious facial drooping NECK: Supple without nuchal rigidity. No lymphadenopathy. No thyromegaly. Cervical spine is nontender. HEART: Regular rate and rhythm with systolic murmur LUNGS: Poor respiratory effort with mild crackles in the bibasilar regions. There is tenderness along the left side lower ribs roughly to the fourth through eighth rib distributions. ABDOMEN: Positive normal bowel sounds x 4. Soft, nontender, without masses or organomegaly. No guarding or rebound tenderness. MUSCULOSKELETAL: No muscle atrophy, erythema, or edema noted. Full range of motion without joint tenderness in all extremities. NEURO: Patient was alert and oriented to person place and time. CN II through XII grossly intact SKIN: Left buttocks decubitus ulcer appreciated Medical Decision & Procedures ER Provider Diagnostic Interpretation: HEAD CT NONCONTRAST CT DOSE: 1074.96 mGy.cm HISTORY: Altered mental status. Intermittent right-sided weakness. TECHNIQUE: Multiaxial CT images of the head were performed without the use of intravenous contrast. Automated exposure control was utilized for this study. A dose lowering technique was utilized adhering to the principles of ALARA. Comparison: Head CT 07/11/2016. Findings: Suboptimal evaluation the brain due to the motion artifact. The calvarium and skull base are intact. There is no mass, hematoma, midline shift, acute infarct. White matter hypodensity is nonspecific but suggestive of microvascular ischemic change. The ventricles and sulci demonstrate mild age-related involutional changes. Impression: Motion artifact. No definite acute intracranial abnormality. Consider repeat study if the patient symptoms continue to progress. CT OF THE CHEST WITH IV CONTRAST CLINICAL HISTORY: Left-sided chest and abdominal pain following injury. COMPARISON STUDY: Chest radiograph performed earlier today and chest CT February 06, 2014. TECHNIQUE: Following IV administration of 94 mL of Optiray-320, helical axial images of the chest were obtained. Sagittal and coronal reconstructions were viewed as well as maximal intensity projections on an independent 3-D workstation. A dose lowering technique was utilized adhering to the principles of ALARA. CT DOSE: 2165.58 mGy.cm FINDINGS: There is no evidence of traumatic injury to the thoracic aorta. The heart is moderately enlarged. No enlarged thoracic lymph nodes are identified. There is no pneumothorax. A small left pleural effusion is present. Linear and groundglass opacities within lungs favor atelectasis. No acute thoracic spine fracture is present. There are acute minimally displaced fractures of the left fifth and seventh ribs as well as a nondisplaced fracture of the lateral left sixth rib. These are acute. There are additional old left-sided rib fractures. Calcified right lower lobe granuloma is present. Lungs are suboptimally assessed due to respiratory motion. IMPRESSION: 1. Acute mildly displaced fractures of the lateral left fifth and seventh ribs and acute nondisplaced fracture of the lateral left sixth rib. No pneumothorax. Small left pleural effusion may reflect a small hemothorax given the rib fractures. 2. Subpleural and ground glass opacities which favor atelectasis. An infectious process is considered less likely. 3. No additional acute traumatic findings within the chest. ABD/PELVIS IV CONTRAST ONLY CLINICAL HISTORY: 76 years-old Male presenting with left side chest/abd injury. TECHNIQUE: Multidetector CT of the abdomen and pelvis was performed after the administration of intravenous contrast. IV contrast: 94 mL of Optiray 320. A dose lowering technique was used consistent with the principles of ALARA (as low as reasonably achievable). COMPARISON: 12/31/2016. CT DOSE (mGy.cm): The estimated cumulative dose is 2165.[address] head, CT chest. FINDINGS: The examination is slightly degraded by motion artifact, which decreases image quality and diagnostic sensitivity. Online Trader topogram: Gaseous distention of bowel. Lung bases: Extensive bibasilar consolidation increased from prior. Small left pleural effusion. Multichamber enlargement of the heart. Aortic valve atherosclerosis. No pericardial effusion. Liver: Normal morphology. No liver lesion. Patent hepatic vasculature. Biliary: No intrahepatic or extrahepatic biliary ductal dilatation. Normal gallbladder. Pancreas: Mild parenchymal atrophy. Duodenal diverticulum noted in the region of the pancreatic head. Spleen: Parenchymal calcification, possibly suggesting old granulomatous disease. Adrenal glands: Nonspecific nodular thickening of the adrenal glands. Kidneys and ureters: Exophytic 8 cm simple appearing left renal cyst with lobular extension into the renal sinus. No hydronephrosis. Ureters normal. Bladder: Mild circumferential bladder wall thickening. Pelvic organs: Prostate enlargement likely secondary to benign prostatic hyperplasia. Bowel: Anastomosis noted in the region of the upper rectum likely indicating prior sigmoidectomy. Moderate stool burden throughout the colon, which is also mildly distended with gas. Ileocolic anastomosis at the level of the hepatic flexure, where there is associated minimal surrounding stranding, possibly indicating chronic scarring/adhesions. No bowel obstruction. Small bowel is not significantly distended. Duodenal diverticulum at the level of pancreatic head suggested. No pneumatosis. Peritoneal cavity: The previously noted collection immediately superior to the sigmoid anastomosis has slightly decreased in size now measuring 4.1 x 1.4 cm, previously 4.4 x 2.4 cm. A small focus of gas is noted within this collection. Gas within the collection appears new from prior. Vasculature: Interval opacification of the jejunal vein draining into the superior mesenteric vein without evidence of thrombus on the current exam. Atherosclerosis of the normal caliber abdominal aorta. Lymph nodes: No enlarged lymph nodes in the abdomen or pelvis. Abdominal wall: Postsurgical changes along the midline ventral abdominal wall. Musculoskeletal: Degenerative changes of the spine. IMPRESSION: 1. No evidence of acute intra-abdominal injury. 2. Postsurgical changes of sigmoidectomy with interval decrease in size of the gas and fluid containing collection immediately superior to the anastomosis. This fluid collection remains concerning for an abscess secondary to anastomotic leak, especially given the presence of gas, which is new from prior. 3. Interval resolution of previously demonstrated filling defect within a branch of the superior mesenteric vein. 4. Persistent colonic distention with stool and gas, suggesting colonic ileus. CHEST ONE VIEW PORTABLE CLINICAL HISTORY: Altered mental status. COMPARISON STUDY: Chest radiograph December 31, 2016. FINDINGS: Mild left basilar opacity favors atelectasis. Lung volumes are diminished. Mild cardiomegaly is unchanged. There is no evidence of pulmonary edema. No pneumothorax is identified. Exam is compromised by motion artifact. There are possible small bilateral pleural effusions. Prominent upper abdominal bowel loop may reflect a distended colonic loop, as shown on prior studies. IMPRESSION: 1. Possible small bilateral pleural effusions. 2. Diminished lung volumes with left basilar atelectasis. 3. Suspected colonic distention within visualized portions of the upper abdomen. This is partially imaged on this exam and was shown on prior abdominal CT of December 31, 2016. Laboratory Results 01/18/17 12:45 Red Blood Count 3.71, Mean Corpuscular Volume 91.6, Mean Corpuscular Hemoglobin 30.7, Mean Corpuscular Hemoglobin Concent 33.5, Mean Platelet Volume 10.3, Neutrophils (%) (Auto) 66.3, Lymphocytes (%) (Auto) 16.8, Monocytes (%) (Auto) 14.8, Eosinophils (%) (Auto) 1.4, Basophils (%) (Auto) 0.2, Neutrophils # (Auto ) 7.33, Lymphocytes # (Auto) 1.86, Monocytes # (Auto) 1.64, Eosinophils # (Auto ) 0.15, Basophils # (Auto) 0.02 01/18/17 12:45 Test 01/18/17 12:45 01/18/17 13:14 01/18/17 13:45 01/18/17 16:33 White Blood Count 11.05 K/uL (4.8-10.8) Red Blood Count 3.71 M/uL (4.7-6.1) Hemoglobin 11.4 g/dL (14.0-18.0) Hematocrit 34.0 % (42-52) Mean Corpuscular Volume 91.6 fL (80-100) Mean Corpuscular Hemoglobin 30.7 pg (25-34) Mean Corpuscular Hemoglobin Concent 33.5 g/dl (32-36) Platelet Count 273 K/uL (130-400) Mean Platelet Volume 10.3 fL (7.4-10.4) Neutrophils (%) (Auto) 66.3 % Lymphocytes (%) (Auto) 16.8 % Monocytes (%) (Auto) 14.8 % Eosinophils (%) (Auto) 1.4 % Basophils (%) (Auto) 0.2 % Neutrophils # (Auto) 7.33 K/uL (1.4-6.5) Lymphocytes # (Auto) 1.86 K/uL (1.2-3.4) Monocytes # (Auto) 1.64 K/uL (0.11-0.59) Eosinophils # (Auto) 0.15 K/uL (0-0.5) Basophils # (Auto) 0.02 K/uL (0-0.2) RDW Standard Deviation 46.2 fL (36.4-46.3) RDW Coefficient of Variation 13.8 % (11.5-14.5) Immature Granulocyte % (Auto) 0.5 % Immature Granulocyte # (Auto) 0.05 K/uL (0.00-0.02) Prothrombin Time 38.4 SECONDS (9.0-12.0) Prothromb Time International Ratio 3.4 (0.9-1.1) Activated Partial Thromboplast Time 44.1 SECONDS (21.0-31.0) Partial Thromboplastin Ratio 1.7 Anion Gap 7.0 mmol/L (3-11) Est Creatinine Clear Calc Drug Dose 70.0 ml/min Estimated GFR () 75.2 Estimated GFR (Non- 64.9 BUN/Creatinine Ratio 13.0 (10-20) Calcium Level 9.1 mg/dl (8.5-10.1) Total Bilirubin 0.8 mg/dl (0.2-1) Aspartate Amino Transf (AST/SGOT) 14 U/L (15-37) Alanine Aminotransferase (ALT/SGPT) 7 U/L (12-78) Alkaline Phosphatase 101 U/L (45-117) Total Creatine Kinase 147 U/L (39-308) Creatine Kinase MB 1.3 ng/ml (0.5-3.6) Troponin I < 0.015 ng/ml (0-0.045) Total Protein 7.2 gm/dl (6.4-8.2) Albumin 3.3 gm/dl (3.4-5.0) Globulin 3.9 gm/dl (2.5-4.0) Albumin/Globulin Ratio 0.8 (0.9-2) Creatine Kinase MB Ratio (0-3.0) Urine Color YELLOW Urine Appearance CLEAR (CLEAR) Urine pH 6.0 (4.5-7.5) Urine Specific [place] 1.018 (1.000-1.030) Urine Protein NEG (NEG) Urine Glucose (UA) NEG (NEG) Urine Ketones NEG (NEG) Urine Occult Blood NEG (NEG) Urine Nitrite NEG (NEG) Urine Bilirubin NEG (NEG) Urine Urobilinogen NEG (NEG) Urine Leukocyte Esterase NEG (NEG) Lactic Acid Level 1.1 mmol/L (0.4-2.0) Medications Administered Medications (Trade) Dose Ordered Sig/[place] Route Start Time Stop Time Status Last Admin Dose Admin Sodium Chloride 1,000 ml @ 200 mls/hr Q5H IV 01/18/17 13:14 01/18/17 19:02 DC 01/18/17 14:02 200 MLS/HR ED Course Physical exam and history were performed. Nursing notes, EMR, and Medication List were personally reviewed. Patient appears to have altered mental status over the past one day. His last known well time was around 8 AM. He does not have obvious facial drooping or extremity weakness. The patient has had surgical procedures recently and is acting different according to his family. IV access was established and labs were obtained. Lactic acid and blood cultures were gathered. The case was discussed with my attending physician, Dr. Lynch, who also and pedal evaluated the patient. We ultimately elected on CT scans of the head, chest, abdomen, and pelvis to help establish cause of the patient's symptoms. The patient's blood work is as above and was reviewed. He has a very slightly elevated but not significantly elevated white count. There is mild anemia. Lactic acid is normal. Blood cultures 2 are pending. The remaining labs are fairly nondiagnostic including urine which does not show acute obvious infection. The patient's CT scans are as above. He does not appear to have evidence of stroke. He has left-sided rib fractures. INR is elevated at 3.4. His abdominal CT shows a fluid collection which could represent abscess. I did discuss the case with the on-call surgeon, Dr Ellis, who evaluated the patient here in the department. Please see her dictation for specifics regarding this. I also discussed the case with Dr. Bauman, who will admit the patient for further care and evaluation. Please see his dictation for further patient course, plan, and disposition. The chart was completed utilizing [employer] Voice Recognition Software. Grammatical errors, random word insertions, pronoun errors, and incomplete sentences are an occasional consequence of this system due to software limitations, ambient noise, and hardware issues. Any formal questions or concerns about the content, text, or information contained within the body of this dictation should be directly addressed to the provider for clarification. . Medical Decision Differential diagnosis: Etiologies such as metabolic, infection, hypoglycemia, electrolyte abnormalities , cardiac sources, intracerebral event, toxicologic, neurologic, as well as others were entertained. Impression Primary Impression: Altered mental state Departure Information Dispostion Still a Patient Condition FAIR Referrals No Doctor, Assigned (PCP) Forms WORK / SCHOOL INSTRUCTIONS, HOME CARE DOCUMENTATION FORM, IMPORTANT VISIT INFORMATION Patient Instructions [facility]
[2017-01-18 23:11] VITALS: BP 120/68; PULSE 80; TEMP 37.2; O2SAT 93
[2017-01-19 00:44] VITALS: BP 124/66; PULSE 80; TEMP 37.2; O2SAT 94
[2017-01-19] MEDS: NSS + 20MEQ KCL 1000ML 1,000 ML IV SCH ×2 (05:43→18:28)
[2017-01-19 06:14] LABS: INR 3.4 (0.9-1.1); PROTHROMBIN TIME (PATIENT) 38.7 SECONDS (9.0-12.0)
[2017-01-19 07:58] VITALS: BP 138/68; PULSE 77; TEMP 37.2; O2SAT 95
[2017-01-19] MEDS: FAMOTIDINE IV INJ 20 MG in DEXTROSE 5% 100ML 100 ML IV SCH ×2 (08:04→20:54)
[2017-01-19] MEDS: CARBIDOPA/LEVODOPA 25/100MG TAB PO SCH ×3 (08:05→20:54)
[2017-01-19] MEDS: SERTRALINE HCL 50 MG TAB PO SCH (08:05)
[2017-01-19] MEDS: GABAPENTIN 300 MG CAP PO SCH ×4 (08:05→20:53)
[2017-01-19] MEDS: LIDODERM (LIDOCAINE) PATCH 5% TD SCH (08:06)
[2017-01-19 11:03] VITALS: O2SAT 94
[2017-01-19] MEDS ORDERED: POLYETHYLENE (MIRALAX) 17 GM PACK PO STA (12:21)
--- NOTE | 2017-01-19 12:23 | Progress Note ---
Subjective Date of Service: Jan 19, 2017. Subjective Pt evaluation today including: conversation w/ patient, conversation w/ family , chart review, lab review, review of studies, review of inpatient medication list sitting up in chair, pleasant , looks good , NAD, c/o left rib cage pain when deep breathing, denies dizziness Problem List Medical Problems: (1) Abdominal distension Status: Acute (2) Rhabdomyolysis Status: Acute (3) Sigmoid volvulus Status: Acute (4) Vomiting Status: Acute (5) Weakness Status: Acute Social History Problems: (1) Status post partial colectomy Status: Acute Review of Systems Constitutional: No fever, No chills, No sweats, No weight loss, No weakness, No fatigue, No problem reported Eyes: No worsening of vision, No eye pain, No redness, No discharge, No diplopia ENT: No hearing loss, No unusual epistaxis, No nasal symptoms, No sore throat, No tinnitus, No dental problems, No trouble swallowing Respiratory: No cough, No sputum, No wheezing, No shortness of breath, No dyspnea on exertion, No dyspnea at rest, No hemoptysis Cardiac: + chest pain, No orthopnea, No PND, No edema, No claudication, No palpitations Abdomen: No pain, No nausea, No vomiting, No diarrhea, No constipation Musculoskeletal: No joint pain, No muscle pain, No swelling, No calf pain Male : No dysuria, No urinary frequency, No incontinence, No nocturia more than once/night, No slowing stream, No hematuria Neurologic: No memory loss, No paralysis, No weakness, No numbness/tingling, No vertigo, No balance problems Psychiatric: No depression symptoms, No anhedonism, No anxiety, No insomnia, No substance abuse Heme: No abnormal bleeding/bruising, No clotting problems, No swollen lymph nodes, No night sweats Endo: No fatigue, No excessive thirst, No excessive urination Skin: No rash, No itch, No new/changing skin lesions, No color change, No bleeding Objective Vital Signs Date Time Temp Pulse Resp B/P (MAP) Pulse Ox O2 Delivery O2 Flow Rate FiO2 01/19/17 11:03 94 Room Air 01/19/17 07:58 37.2 77 18 138/68 (91) 95 Room Air 01/19/17 07:40 Room Air 01/19/17 00:44 37.2 80 18 124/66 (85) 94 2.0 01/19/17 00:00 Room Air 01/18/17 23:11 37.2 80 18 120/68 (85) 93 2.0 01/18/17 19:37 36.9 79 18 128/69 91 Room Air 01/18/17 18:08 83 27 90 01/18/17 18:01 126/89 01/18/17 17:38 80 17 91 01/18/17 17:31 102/65 01/18/17 17:24 85 01/18/17 17:08 84 24 98 01/18/17 17:02 134/59 01/18/17 16:38 77 24 01/18/17 16:33 94 Nasal Cannula 2.0 01/18/17 16:33 115/80 01/18/17 16:31 81 21 88 01/18/17 16:01 77 23 129/67 93 01/18/17 14:56 98 24 115/68 96 Nasal Cannula 2.0 01/18/17 13:48 116/72 01/18/17 13:43 80 21 96 01/18/17 13:31 119/64 01/18/17 13:28 37.1 86 24 138/67 85 Room Air 01/18/17 13:28 82 21 95 01/18/17 13:21 95 Nasal Cannula 2.0 01/18/17 13:19 82 01/18/17 13:05 138/67 Physical Exam General Appearance: WD/WN, no apparent distress, + pertinent finding (looks better than last time I was seeing him) Eyes: normal inspection, PERRL, EOMI, sclerae normal ENT: normal ENT inspection, hearing grossly normal, pharynx normal Neck: supple, no adenopathy, thyroid normal, no JVD, no carotid bruits, trachea midline Respiratory/Chest: chest non-tender, lungs clear, normal breath sounds, no respiratory distress, no accessory muscle use Cardiovascular: regular rate, rhythm, no edema, no gallop, no JVD, no murmur Abdomen: normal bowel sounds, non tender, soft, no organomegaly, no pulsatile mass Extremities: normal range of motion, non-tender, normal inspection, no pedal edema, no calf tenderness, normal capillary refill, pelvis stable Neurologic/Psychiatric: 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, no motor/sensory deficits, alert, normal mood/affect, oriented x 3, + abnormal cerebellar tests Skin: normal color, warm/dry, no rash Lymphatic: no adenopathy Laboratory Results Last 24 Hours Test 01/18/17 12:45 01/18/17 13:14 01/18/17 13:45 01/18/17 16:33 White Blood Count 11.05 K/uL Red Blood Count 3.71 M/uL Hemoglobin 11.4 g/dL Hematocrit 34.0 % Mean Corpuscular Volume 91.6 fL Mean Corpuscular Hemoglobin 30.7 pg Mean Corpuscular Hemoglobin Concent 33.5 g/dl Platelet Count 273 K/uL Mean Platelet Volume 10.3 fL Neutrophils (%) (Auto) 66.3 % Lymphocytes (%) (Auto) 16.8 % Monocytes (%) (Auto) 14.8 % Eosinophils (%) (Auto) 1.4 % Basophils (%) (Auto) 0.2 % Neutrophils # (Auto) 7.33 K/uL Lymphocytes # (Auto) 1.86 K/uL Monocytes # (Auto) 1.64 K/uL Eosinophils # (Auto) 0.15 K/uL Basophils # (Auto) 0.02 K/uL RDW Standard Deviation 46.2 fL RDW Coefficient of Variation 13.8 % Immature Granulocyte % (Auto) 0.5 % Immature Granulocyte # (Auto) 0.05 K/uL Prothrombin Time 38.4 SECONDS Prothromb Time International Ratio 3.4 Activated Partial Thromboplast Time 44.1 SECONDS Partial Thromboplastin Ratio 1.7 Sodium Level 133 mmol/L Potassium Level 4.1 mmol/L Chloride Level 101 mmol/L Carbon Dioxide Level 25 mmol/L Anion Gap 7.0 mmol/L Blood Urea Nitrogen 14 mg/dl Creatinine 1.10 mg/dl Est Creatinine Clear Calc Drug Dose 70.0 ml/min Estimated GFR () 75.2 Estimated GFR (Non- 64.9 BUN/Creatinine Ratio 13.0 Random Glucose 110 mg/dl Calcium Level 9.1 mg/dl Total Bilirubin 0.8 mg/dl Aspartate Amino Transf (AST/SGOT) 14 U/L Alanine Aminotransferase (ALT/SGPT) 7 U/L Alkaline Phosphatase 101 U/L Total Creatine Kinase 147 U/L Creatine Kinase MB 1.3 ng/ml Creatine Kinase MB Ratio 0.9 Troponin I < 0.015 ng/ml Total Protein 7.2 gm/dl Albumin 3.3 gm/dl Globulin 3.9 gm/dl Albumin/Globulin Ratio 0.8 Urine Color YELLOW Urine Appearance CLEAR Urine pH 6.0 Urine Specific [place] 1.018 Urine Protein NEG Urine Glucose (UA) NEG Urine Ketones NEG Urine Occult Blood NEG Urine Nitrite NEG Urine Bilirubin NEG Urine Urobilinogen NEG Urine Leukocyte Esterase NEG Lactic Acid Level 1.1 mmol/L Test 01/19/17 05:11 01/19/17 09:41 01/19/17 11:19 Prothrombin Time 38.7 SECONDS Prothromb Time International Ratio 3.4 Bedside Glucose 106 mg/dl 111 mg/dl Assessment and Plan 76 yo WM with admitted on 01/18/2017 with Altered mental status/dehydration-- patient will be admitted to the medical surgical floor. No signs of infection at this time. Altered mental statu: ? dehydration, he has no signs of infection, head ct neg, now is in his baseline, [id number] conversational dehydration? possible mild dehydration, cont ivf, and Patient's family went to more aggressively encourage patient to keep his fluid intake up. Left 5 through 7 rib fractures, with 5 and 7 mildly displaced, stable, Lidoderm patch on in the a.m. off in p.m. Voltaren gel to be applied 4 times a day when necessary when the Lidoderm patch is not on. surgeon saw pt Status post sigmoidectomy for sigmoid volvulus during admission December 14 to December 28. Patient was seen by Dr. Taylor in the outpatient office earlier this week and was told he was progressing appropriately. No antibiotics needed at this time. 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 cont Hold warfarin 5 mg by mouth daily until INR less than or equal to 2.5. because of high risk of fall and severe injuries such as the above mild displaced ribs fracture, will discuss with family about the risks and benefits and next step. Hypertension --cont hold lisinopril and triamterene/HCTZ Parkinson's--carbidopa/levodopa 25/100, one half tablets by mouth 3 times a day as soon as patient can take by mouth. Obstructive sleep apnea patient will use own CPAP from home. GERD--until taking by mouth, change ranitidine 150 mg by mouth to famotidine 20 mg IV every 12. GPN--resume gabapentin 3 mg by mouth 4 times a day when taking by mouth. Gout--resume allopurinol 3 mg by mouth daily when taking by mouth. DVT adn GI px ordered pt ot SW consulted Continued [facility] stay due to: multiple IV medications needed Discharge planning: home
[2017-01-19] MEDS ORDERED: POLYETHYLENE (MIRALAX) 17 GM PACK PO PRN (12:30)
[2017-01-19 15:18] VITALS: BP 142/73; PULSE 77; TEMP 36.7; O2SAT 94
[2017-01-19] MEDS ORDERED: WARFARIN SOD 5 MG TAB PO SCH (16:00)
[2017-01-19 22:56] VITALS: BP 155/88; PULSE 87; TEMP 36.6; O2SAT 97
[2017-01-20 07:21] VITALS: BP 156/76; PULSE 81; TEMP 36.5; O2SAT 92
[2017-01-20 07:41] LABS: BASO % 0.1 %; BASO ABS # 0.01 K/uL (0-0.2); COMPLETE YES; EOS % 2.8 %; HEMATOCRIT 33.4 % (42-52); IG% 0.6 %; LYMPH % 16.5 %; LYMPH ABS # 1.46 K/uL (1.2-3.4); MEAN CELL VOLUME 90.5 fL (80-100); MEAN CORPUSCULAR HEMOGLOBIN 29.3 pg (25-34); MEAN CORPUSCULAR HGB CONC 32.3 g/dl (32-36); MEAN PLATELET VOLUME 9.8 fL (7.4-10.4); PLATELET COUNT 259 K/uL (130-400); RED BLOOD COUNT 3.69 M/uL (4.7-6.1); WHITE BLOOD COUNT 8.86 K/uL (4.8-10.8)
[2017-01-20 07:59] LABS: INR 3.5 (0.9-1.1); PROTHROMBIN TIME (PATIENT) 39.4 SECONDS (9.0-12.0)
[2017-01-20 08:12] LABS: CALCIUM 8.7 mg/dl (8.5-10.1); CREATININE 0.92 mg/dl (0.60-1.40); MAGNESIUM 1.8 mg/dl (1.8-2.4); POTASSIUM 3.9 mmol/L (3.5-5.1)
[2017-01-20] MEDS: GABAPENTIN 300 MG CAP PO SCH ×4 (08:49→20:59)
[2017-01-20] MEDS: FAMOTIDINE IV INJ 20 MG in DEXTROSE 5% 100ML 100 ML IV SCH (08:49)
[2017-01-20] MEDS: SERTRALINE HCL 50 MG TAB PO SCH (08:49)
[2017-01-20] MEDS: CARBIDOPA/LEVODOPA 25/100MG TAB PO SCH ×2 (08:49→13:07)
[2017-01-20] MEDS: LIDODERM (LIDOCAINE) PATCH 5% TD SCH (08:50)
[2017-01-20] MEDS: NSS + 20MEQ KCL 1000ML 1,000 ML IV SCH (14:42)
[2017-01-20 15:04] VITALS: BP 146/78; PULSE 85; TEMP 37.3; O2SAT 90
--- NOTE | 2017-01-20 15:49 | Progress Note ---
Subjective Date of Service: Jan 20, 2017. Subjective Pt evaluation today including: conversation w/ patient, conversation w/ family , physical exam, chart review, lab review, review of studies, review of inpatient medication list Tired, in bed, Looks tired Mild resting tremor which is not new No special complaint Problem List Medical Problems: (1) Abdominal distension Status: Acute (2) Rhabdomyolysis Status: Acute (3) Sigmoid volvulus Status: Acute (4) Vomiting Status: Acute (5) Weakness Status: Acute Social History Problems: (1) Status post partial colectomy Status: Acute Review of Systems Constitutional: + problem reported (not able to obtain because patient looks tired and does not want to talk to much), No fever, No chills Respiratory: + cough Objective Vital Signs Date Time Temp Pulse Resp B/P (MAP) Pulse Ox O2 Delivery O2 Flow Rate FiO2 01/20/17 15:04 37.3 85 20 146/78 (100) 90 Room Air 01/20/17 08:00 Room Air 01/20/17 07:21 36.5 81 20 156/76 (102) 92 Room Air 01/20/17 00:00 CPAP 01/19/17 22:56 36.6 87 18 155/88 (110) 97 CPAP 01/19/17 16:35 Room Air Physical Exam General Appearance: WD/WN, no apparent distress, + thin, + pertinent finding ( frail, mild lethargic) Eyes: normal inspection, PERRL, EOMI, sclerae normal ENT: normal ENT inspection, hearing grossly normal, pharynx normal Neck: supple, no adenopathy, thyroid normal, no JVD, no carotid bruits, trachea midline Respiratory/Chest: chest non-tender, normal breath sounds, no respiratory distress, no accessory muscle use, + decreased breath sounds, + pertinent finding (left anterior chest wall and lateral chest were tender in palpation) Cardiovascular: regular rate, rhythm, no edema, no gallop, no JVD, no murmur Abdomen: normal bowel sounds, non tender, soft, no organomegaly, no pulsatile mass, + pertinent finding (abdominal wound was healing well) Extremities: normal range of motion, non-tender, normal inspection, no pedal edema, no calf tenderness, normal capillary refill, pelvis stable Neurologic/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: 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, no motor/sensory deficits, alert, normal mood/affect, oriented x 3 Skin: normal color, warm/dry, no rash, + pertinent finding (kyphosis) Lymphatic: no adenopathy Laboratory Results Last 24 Hours Test 01/19/17 16:30 01/19/17 20:29 01/20/17 06:50 01/20/17 07:32 Bedside Glucose 101 mg/dl 108 mg/dl 98 mg/dl White Blood Count 8.86 K/uL Red Blood Count 3.69 M/uL Hemoglobin 10.8 g/dL Hematocrit 33.4 % Mean Corpuscular Volume 90.5 fL Mean Corpuscular Hemoglobin 29.3 pg Mean Corpuscular Hemoglobin Concent 32.3 g/dl Platelet Count 259 K/uL Mean Platelet Volume 9.8 fL Neutrophils (%) (Auto) 63.0 % Lymphocytes (%) (Auto) 16.5 % Monocytes (%) (Auto) 17.0 % Eosinophils (%) (Auto) 2.8 % Basophils (%) (Auto) 0.1 % Neutrophils # (Auto) 5.58 K/uL Lymphocytes # (Auto) 1.46 K/uL Monocytes # (Auto) 1.51 K/uL Eosinophils # (Auto) 0.25 K/uL Basophils # (Auto) 0.01 K/uL RDW Standard Deviation 45.0 fL RDW Coefficient of Variation 13.4 % Immature Granulocyte % (Auto) 0.6 % Immature Granulocyte # (Auto) 0.05 K/uL Prothrombin Time 39.4 SECONDS Prothromb Time International Ratio 3.5 Sodium Level 137 mmol/L Potassium Level 3.9 mmol/L Chloride Level 104 mmol/L Carbon Dioxide Level 25 mmol/L Anion Gap 8.0 mmol/L Blood Urea Nitrogen 9 mg/dl Creatinine 0.92 mg/dl Est Creatinine Clear Calc Drug Dose 81.7 ml/min Estimated GFR () 93.3 Estimated GFR (Non- 80.5 BUN/Creatinine Ratio 10.0 Random Glucose 95 mg/dl Calcium Level 8.7 mg/dl Magnesium Level 1.8 mg/dl Test 01/20/17 11:23 Bedside Glucose 103 mg/dl Assessment and Plan 76 yo WM with admitted on 01/18/2017 with Altered mental status/dehydration-- patient will be admitted to the medical surgical floor. No signs of infection at this time. Altered mental statu: Likely from dementia, or sundown SYNDROME, yesterday he looks so well to me was up and talk, conversational Altered mental statu? Secondary dehydration, So far no signs of infection, Emergency room relation head ct neg, possible now is in his baseline, Encourage oral intake, discontinue IV fluid Patient's family want to more aggressively encourage patient to keep his fluid intake up. Left 5 through 7 rib fractures, with 5 and 7 mildly displaced, stable, Lidoderm patch on in the a.m. off in p.m. Voltaren gel to be applied 4 times a day when necessary when the Lidoderm patch is not on. surgeon saw pt Continue incentive spirometry Status post sigmoidectomy for sigmoid volvulus during admission December 14 to December 28. Patient was seen by Dr. Taylor in the outpatient office earlier this week and was told he was progressing appropriately. No antibiotics needed at this time. 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, Vascular surgeon joann varner 6 month, because of high risk of fall and severe injuries such as the above mild displaced ribs fracture, Discussed with family , including daughter Victoria, has reported to me, she discussed with 2 brothers, and decided no more Coumadin or any other anticoagulation for the possible mesenteric thrombosis, discussed the risks and benefits and pros and cons with Victoria, she understand and willing to take all risks Hypertension --cont hold lisinopril and triamterene/HCTZ Parkinson's--carbidopa/levodopa 25/100, one half tablets by mouth 3 times a day as soon as patient can take by mouth. Obstructive sleep apnea patient will use own CPAP from home. GERD--until taking by mouth, change ranitidine 150 mg by mouth to famotidine 20 mg IV every 12. GPN--resume gabapentin 3 mg by mouth 4 times a day when taking by mouth. Gout--resume allopurinol 3 mg by mouth daily when taking by mouth. DVT adn GI px ordered pt ot recommend possible need a rehabilitation, SW consulted Continued [facility] stay due to: home environment unsafe for pt Discharge planning: home
[2017-01-20] MEDS ORDERED: CARBIDOPA/LEVODOPA 25/100MG TAB PO ONE (21:00)
[2017-01-21 00:18] VITALS: BP 143/63; PULSE 75; TEMP 37.5; O2SAT 91
[2017-01-21 07:21] LABS: BASO % 0.1 %; BASO ABS # 0.01 K/uL (0-0.2); COMPLETE YES; EOS % 2.2 %; HEMATOCRIT 32.6 % (42-52); IG% 0.6 %; LYMPH ABS # 1.69 K/uL (1.2-3.4); MEAN CELL VOLUME 90.6 fL (80-100); MEAN CORPUSCULAR HEMOGLOBIN 29.7 pg (25-34); MEAN CORPUSCULAR HGB CONC 32.8 g/dl (32-36); MEAN PLATELET VOLUME 9.2 fL (7.4-10.4); MONO % 14.4 %; NEUT % 62.7 %; PLATELET COUNT 247 K/uL (130-400); WHITE BLOOD COUNT 8.46 K/uL (4.8-10.8)
[2017-01-21] MEDS: CARBIDOPA/LEVODOPA 25/100MG TAB PO SCH ×3 (07:31→18:06)
[2017-01-21] MEDS: GABAPENTIN 300 MG CAP PO SCH ×4 (07:31→21:02)
[2017-01-21] MEDS: SERTRALINE HCL 50 MG TAB PO SCH (07:31)
[2017-01-21] MEDS: LIDODERM (LIDOCAINE) PATCH 5% TD SCH (07:31)
[2017-01-21 07:37] VITALS: BP 142/77; PULSE 83; TEMP 37.1; O2SAT 93
[2017-01-21 07:55] LABS: BUN/CREATININE RATIO 10.2 (10-20); CALCIUM 8.5 mg/dl (8.5-10.1); CREATININE 0.88 mg/dl (0.60-1.40); MAGNESIUM 1.8 mg/dl (1.8-2.4); POTASSIUM 3.8 mmol/L (3.5-5.1)
[2017-01-21] MEDS: NSS + 20MEQ KCL 1000ML 1,000 ML IV SCH (10:10)
--- NOTE | 2017-01-21 11:18 | Progress Note ---
Subjective Date of Service: Jan 21, 2017. Subjective Pt evaluation today including: conversation w/ patient, conversation w/ family , physical exam, chart review, lab review, review of studies, review of inpatient medication list Is sleeping, but not on CPAP machine, during 10 minutes talk with daughter in bedside, patient has a several times sleep apnea, which wake him up several times and fall sleep again Problem List Medical Problems: (1) Abdominal distension Status: Acute (2) Rhabdomyolysis Status: Acute (3) Sigmoid volvulus Status: Acute (4) Vomiting Status: Acute (5) Weakness Status: Acute Social History Problems: (1) Status post partial colectomy Status: Acute Review of Systems Constitutional: + problem reported (not able to obtain because patient is sleep now) Objective Vital Signs Date Time Temp Pulse Resp B/P (MAP) Pulse Ox O2 Delivery O2 Flow Rate FiO2 01/21/17 08:00 Room Air 01/21/17 07:37 37.1 83 20 142/77 (98) 93 Room Air 01/21/17 00:18 37.5 75 18 143/63 (89) 91 Room Air 01/21/17 00:00 Room Air 01/20/17 20:00 Room Air 01/20/17 16:00 Room Air 01/20/17 15:04 37.3 85 20 146/78 (100) 90 Room Air Physical Exam General Appearance: + thin, + pertinent finding (frail) Respiratory/Chest: + decreased breath sounds Cardiovascular: regular rate, rhythm, no edema, no gallop Abdomen: normal bowel sounds, soft Extremities: normal range of motion, non-tender, normal inspection Skin: + pertinent finding ( no facial droop) Laboratory Results Last 24 Hours Test 01/20/17 11:23 01/20/17 16:41 01/20/17 20:49 01/21/17 07:09 Bedside Glucose 103 mg/dl 144 mg/dl 99 mg/dl White Blood Count 8.46 K/uL Red Blood Count 3.60 M/uL Hemoglobin 10.7 g/dL Hematocrit 32.6 % Mean Corpuscular Volume 90.6 fL Mean Corpuscular Hemoglobin 29.7 pg Mean Corpuscular Hemoglobin Concent 32.8 g/dl Platelet Count 247 K/uL Mean Platelet Volume 9.2 fL Neutrophils (%) (Auto) 62.7 % Lymphocytes (%) (Auto) 20.0 % Monocytes (%) (Auto) 14.4 % Eosinophils (%) (Auto) 2.2 % Basophils (%) (Auto) 0.1 % Neutrophils # (Auto) 5.30 K/uL Lymphocytes # (Auto) 1.69 K/uL Monocytes # (Auto) 1.22 K/uL Eosinophils # (Auto) 0.19 K/uL Basophils # (Auto) 0.01 K/uL RDW Standard Deviation 44.6 fL RDW Coefficient of Variation 13.4 % Immature Granulocyte % (Auto) 0.6 % Immature Granulocyte # (Auto) 0.05 K/uL Sodium Level 137 mmol/L Potassium Level 3.8 mmol/L Chloride Level 105 mmol/L Carbon Dioxide Level 27 mmol/L Anion Gap 5.0 mmol/L Blood Urea Nitrogen 9 mg/dl Creatinine 0.88 mg/dl Est Creatinine Clear Calc Drug Dose 85.4 ml/min Estimated GFR () 96.7 Estimated GFR (Non- 83.4 BUN/Creatinine Ratio 10.2 Random Glucose 97 mg/dl Calcium Level 8.5 mg/dl Magnesium Level 1.8 mg/dl Test 01/21/17 07:20 Bedside Glucose 98 mg/dl Assessment and Plan 76 yo WM with admitted on 01/18/2017 with Altered mental status/dehydration-- patient will be admitted to the medical surgical floor. No signs of infection at this time. Altered mental statu: Likely from dementia, or sundown SYNDROME, All because of sleep apnea sometimes he does not put on BiPAP machine which may caused the order mental status to He has been looks so well to me was up and talk, conversational, but sometimes quite confused Possible dehydration, was treated So far no signs of infection, Emergency room relation head ct neg, Encourage oral intake, discontinue IV fluid, and also encourage nurse and family to put him on cpap machine when he sleep Patient's family want to more aggressively encourage patient to keep his fluid intake up. Left 5 through 7 rib fractures, with 5 and 7 mildly displaced, stable, pain control Continue Lidoderm patch on in the a.m. off in p.m. Continue Voltaren gel to be applied 4 times a day when necessary when the Lidoderm patch is not on. surgeon saw pt Continue incentive spirometry Status post sigmoidectomy for sigmoid volvulus during admission December 14 to December 28., Stable Patient was seen by Dr. Taylor in the outpatient office earlier this week and was told he was progressing appropriately. 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, Vascular surgeon joann varner 6 month, now is no more l anticoagulation because of high risk of fall and severe injuries such as the above mild displaced ribs fracture, Discussed with family , including daughter Victoria, has reported to me, she discussed with 2 brothers, and decided no more Coumadin or any other anticoagulation for the possible mesenteric thrombosis, discussed the risks and benefits and pros and cons with Victoria, she understand and willing to take all risks Hypertension --cont current care Parkinson's--carbidopa/levodopa 25/100, one half tablets by mouth 3 times a day as soon as patient can take by mouth. Obstructive sleep apnea: CPAP from home, discussed with patient's family and nurse about using the machine appropriately whenever he is in a sleep GERD--until taking by mouth, change ranitidine 150 mg by mouth to famotidine 20 mg IV every 12. GPN--resume gabapentin 3 mg by mouth 4 times a day when taking by mouth. Gout--resume allopurinol 3 mg by mouth daily when taking by mouth. DVT adn GI px ordered pt ot recommend possible need a rehabilitation, SW consulted Daughter looking for HSR with Megan flores as A backup Continued [facility] stay due to: home environment unsafe for pt Discharge planning: rehab hospital, [facility] facility
[2017-01-21] MEDS ORDERED: CLONAZEPAM 0.5 MG TAB PO PRN (11:30)
[2017-01-21 16:00] VITALS: O2SAT 93
[2017-01-21 16:22] VITALS: BP 146/78; PULSE 69; TEMP 36.7; O2SAT 93
[2017-01-21] MEDS: RANITIDINE HCL 150 MG TAB PO SCH (21:02)
[2017-01-21 23:45] VITALS: BP 153/76; PULSE 54; TEMP 36.8; O2SAT 97
[2017-01-22 07:20] VITALS: BP 178/81; PULSE 65; TEMP 36.4; O2SAT 95
[2017-01-22] MEDS: GABAPENTIN 300 MG CAP PO SCH ×4 (08:02→20:43)
[2017-01-22] MEDS: CHOLECALCIFEROL 1000 INTER.UNIT TAB PO SCH (08:02)
[2017-01-22] MEDS: CYANOCOBALAMIN 500 MCG TAB (VIT B-12) PO SCH (08:02)
[2017-01-22] MEDS: CARBIDOPA/LEVODOPA 25/100MG TAB PO SCH ×3 (08:02→17:07)
[2017-01-22] MEDS: LISINOPRIL 2.5 MG TAB PO SCH (08:02)
[2017-01-22] MEDS: RANITIDINE HCL 150 MG TAB PO SCH ×2 (08:02→20:43)
[2017-01-22] MEDS: SERTRALINE HCL 50 MG TAB PO SCH (08:03)
[2017-01-22] MEDS: ALLOPURINOL 300 MG TAB PO SCH (08:03)
[2017-01-22] MEDS: LIDODERM (LIDOCAINE) PATCH 5% TD SCH (08:06)
[2017-01-22 10:05] VITALS: BP 97/53; PULSE 67
--- NOTE | 2017-01-22 13:02 | Progress Note ---
Subjective Date of Service: Jan 22, 2017. Subjective Pt evaluation today including: conversation w/ patient, conversation w/ family , physical exam, review of inpatient medication list Pain: left rib pain PO Intake: adequate Voiding: no voiding problems patient sitting up in chair, resting comfortably reports left rib pain with deep breaths, changing positions, it is tolerable though Problem List Medical Problems: (1) Abdominal distension Status: Acute (2) Rhabdomyolysis Status: Acute (3) Sigmoid volvulus Status: Acute (4) Vomiting Status: Acute (5) Weakness Status: Acute Social History Problems: (1) Status post partial colectomy Status: Acute Review of Systems Constitutional: + weakness Cardiac: + chest pain (left rib pain) All Other Systems: Reviewed and Negative Medications Current Inpatient Medications Medications (Trade) Dose Ordered Sig/Chester Route Start Time Stop Time Status Last Admin Dose Admin Ioversol (Optiray 320) 125 ml UD PRN IV 01/18/17 15:00 01/22/17 14:59 Acetaminophen (Tylenol Tab) 650 mg Q4H PRN PO 01/18/17 18:00 02/17/17 17:59 Gabapentin (Neurontin Cap) 300 mg QID PO 01/18/17 21:00 02/17/17 20:59 01/22/17 12:24 300 MG Miconazole Nitrate (Desenex Powder) 1 appln BID PRN EXT 01/18/17 18:00 02/17/17 17:59 Sertraline HCl (Zoloft Tab) 50 mg DAILY PO 01/19/17 09:00 02/18/17 08:59 01/22/17 08:03 50 MG Ondansetron HCl (Zofran Inj) 4 mg Q6H PRN IV 01/18/17 18:00 02/17/17 17:59 Lidocaine (Lidoderm Patch 5%) 1 patch QAM TD 01/19/17 09:00 02/18/17 08:59 01/22/17 08:06 1 PATCH Miscellaneous (Remove Lidoderm Patch) 1 ea DAILY@21 N/A 01/18/17 21:00 02/17/17 20:59 01/21/17 21:01 1 EA Diclofenac Sodium (Voltaren 1% Top Gel) 1 appln QID PRN EXT 01/18/17 18:00 02/17/17 17:59 Miscellaneous (Iv Fluids Completed) 1 ea PRN PRN N/A 01/18/17 21:15 01/18/18 21:14 Polyethylene (Miralax Powder Packet) 17 gm DAILY PRN PO 01/19/17 12:30 02/18/17 12:29 Carbidopa/Levodopa (Sinemet 25/ 100MG Tab) 1.5 tab DAILY@0830,1230,1730 PO 01/21/17 08:30 02/20/17 08:29 01/22/17 12:24 1.5 TAB Allopurinol (Zyloprim Tab) 300 mg DAILY PO 01/22/17 09:00 02/21/17 08:59 01/22/17 08:03 300 MG Clonazepam (Klonopin Tab) 0.25 mg HS PRN PO 01/21/17 11:30 02/20/17 11:29 Lisinopril (Zestril Tab) 2.5 mg QAM PO 01/22/17 09:00 02/21/17 08:59 01/22/17 08:02 2.5 MG Ranitidine HCl (zANTac TAB) 150 mg BID PO 01/21/17 21:00 02/20/17 20:59 01/22/17 08:02 150 MG Cholecalciferol (Vitamin D Tab) 2,000 inter.unit DAILY PO 01/22/17 09:00 02/21/17 08:59 01/22/17 08:02 2,000 INTER.UNIT Cyanocobalamin (Vitamin B-12 Tab) 1,000 mcg DAILY PO 01/22/17 09:00 02/21/17 08:59 01/22/17 08:02 1,000 MCG Objective Vital Signs Date Time Temp Pulse Resp B/P (MAP) Pulse Ox O2 Delivery O2 Flow Rate FiO2 01/22/17 10:05 67 97/53 (68) 01/22/17 08:00 Room Air 01/22/17 07:20 36.4 65 20 178/81 (113) 95 Room Air 01/22/17 00:00 CPAP 01/21/17 23:45 36.8 54 20 153/76 (101) 97 CPAP 01/21/17 20:00 Room Air 01/21/17 16:22 36.7 69 18 146/78 (100) 93 Room Air 01/21/17 16:00 93 Room Air Physical Exam General Appearance: WD/WN, no apparent distress Eyes: normal inspection, EOMI, sclerae normal ENT: normal ENT inspection, hearing grossly normal, pharynx normal Neck: supple, no adenopathy, no JVD, trachea midline Respiratory/Chest: lungs clear, normal breath sounds, no respiratory distress, no accessory muscle use, + pertinent finding (left ribs tender to palpation) Cardiovascular: regular rate, rhythm, no edema, no gallop, no JVD, no murmur Abdomen: normal bowel sounds, non tender, soft, no organomegaly Extremities: normal range of motion, non-tender, normal inspection, no pedal edema, no calf tenderness Neurologic/Psychiatric: manager military II-XII nml as tested, no motor/sensory deficits, alert, normal mood/affect, oriented x 3 Skin: normal color, warm/dry, no rash Lymphatic: no adenopathy Laboratory Results Last 24 Hours Test 01/21/17 16:04 01/21/17 20:35 01/22/17 07:35 01/22/17 11:11 Bedside Glucose 95 mg/dl 106 mg/dl 95 mg/dl 147 mg/dl Assessment and Plan 76 yo WM with admitted on 01/18/2017 with Altered mental status/dehydration-- patient will be admitted to the medical surgical floor. No signs of infection at this time. - Altered mental status: resolved, possibly due to dehydration complicating his Parkinsonism drinking well and eating better, oriented x 3, cooperative and pleasant no signs of infection, CT head normal, normal electrolytes pain from rib fractures could have been contributing - Left 5-7 rib fractures, no significant hemothorax continue Lidoderm patch and Voltaren gell incentive spirometry Status post sigmoidectomy for sigmoid volvulus during admission December 14 to December 28., Stable Patient was seen by Dr. Taylor in the outpatient office earlier last week and was told he was progressing appropriately. 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, Vascular surgeon joann varner 6 month, now is no more anticoagulation due to falls because of high risk of fall and severe injuries such as the above mild displaced ribs fracture, Discussed with family , including daughter Victoria, has reported to me, she discussed with 2 brothers, and decided no more Coumadin or any other anticoagulation for the possible mesenteric thrombosis, discussed the risks and benefits and pros and cons with Victoria, she understand and willing to take all risks Hypertension --cont current care Parkinson's--carbidopa/levodopa 25/100, one half tablets by mouth 3 times a day as soon as patient can take by mouth. Obstructive sleep apnea: CPAP from home, discussed with patient's family and nurse about using the machine appropriately whenever he is in a sleep GERD--until taking by mouth, change ranitidine 150 mg by mouth to famotidine 20 mg IV every 12. GPN--resume gabapentin 3 mg by mouth 4 times a day when taking by mouth. Gout--resume allopurinol 3 mg by mouth daily when taking by mouth. DVT adn GI px ordered PT/OT: evaluated on 01/20, needs updated notes as he is now stronger and more cooperative family hoping for HSNV, will re-evaluate and discuss with CM tomorrow Continued [facility] stay due to: home environment unsafe for pt Discharge planning: rehab hospital, long term facility
[2017-01-22 15:40] VITALS: BP 112/60; PULSE 60; TEMP 36.5; O2SAT 95
[2017-01-22 16:00] VITALS: O2SAT 95
[2017-01-22 23:55] VITALS: BP 143/81; PULSE 60; TEMP 36.6; O2SAT 97
[2017-01-23 06:54] VITALS: BP 160/74; PULSE 57; TEMP 36.4; O2SAT 95
[2017-01-23] MEDS: GABAPENTIN 300 MG CAP PO SCH ×4 (07:45→20:24)
[2017-01-23] MEDS: CARBIDOPA/LEVODOPA 25/100MG TAB PO SCH ×3 (07:45→16:53)
[2017-01-23] MEDS: SERTRALINE HCL 50 MG TAB PO SCH (07:46)
[2017-01-23] MEDS: CYANOCOBALAMIN 500 MCG TAB (VIT B-12) PO SCH (07:46)
[2017-01-23] MEDS: ALLOPURINOL 300 MG TAB PO SCH (07:46)
[2017-01-23] MEDS: LISINOPRIL 2.5 MG TAB PO SCH (07:46)
[2017-01-23] MEDS: LIDODERM (LIDOCAINE) PATCH 5% TD SCH (07:46)
[2017-01-23] MEDS: RANITIDINE HCL 150 MG TAB PO SCH ×2 (07:46→20:24)
[2017-01-23] MEDS: CHOLECALCIFEROL 1000 INTER.UNIT TAB PO SCH (07:46)
[2017-01-23 08:00] VITALS: O2SAT 95
[2017-01-23 10:04] VITALS: BP_SYST 93; BP_SYST 95; BP_DIAS 53; BP_DIAS 57; PULSE 75; TEMP 36.5; O2SAT 92
[2017-01-23 10:51] VITALS: BP_SYST 113; BP_SYST 121; BP_DIAS 62; BP_DIAS 65; PULSE 79; TEMP 36.6; O2SAT 97
--- NOTE | 2017-01-23 12:57 | Hospitalist Progress Note ---
Hospitalist Progress Note Date of Service Jan 23, 2017. Subjective Pt evaluation today including: conversation w/ patient, physical exam, chart review, lab review, review of studies, review of inpatient medication list Patient seen and evaluated. No acute events overnight. Continues to have rib pain but reports it is well-controlled with medications. Participated in PT/OT this AM. Is in agreement to go to rehab. Mental status is baseline at this time. Constitutional: No fever, No chills Respiratory: + cough, No shortness of breath Cardiovascular: + chest pain (Rib pain) Objective Vital Signs Date Time Temp Pulse Resp B/P (MAP) Pulse Ox O2 Delivery O2 Flow Rate FiO2 01/23/17 10:51 36.6 79 18 113/62 (79) 97 Room Air 121/65 (83) 01/23/17 10:04 36.5 75 16 95/57 (70) 92 Room Air 93/53 (66) 01/23/17 08:00 95 Room Air 01/23/17 06:54 36.4 57 18 160/74 (102) 95 BiPAP 01/23/17 00:00 CPAP 01/22/17 23:55 36.6 60 20 143/81 (101) 97 BiPAP 01/22/17 16:00 95 CPAP 2.0 01/22/17 15:40 36.5 60 18 112/60 (77) 95 CPAP Laboratory Results Last 24 Hours Test 01/22/17 16:08 01/22/17 19:37 01/23/17 07:18 01/23/17 11:12 Bedside Glucose 120 mg/dl 113 mg/dl 87 mg/dl 112 mg/dl Assessment and Plan 76 yo WM with admitted on 01/18/2017 with Altered mental status/dehydration-- patient will be admitted to the medical surgical floor. No signs of infection at this time. Altered Mental Status: RESOLVED - Dehydration vs Parkinsonism complication - currently at baseline mentation L 5-7 Rib Fx with Possible Small Hemothorax: - Lidoderm patch and Voltaren gel - Incentive spirometry S/P Sigmoidectomy for Sigmoid Volvulus: STABLE - Outpatient evaluation by surgeon - progressing appropriately Mesenteric Thrombus: - Recommendations for anticoagulation x 6 months but due to fall risk - family decision for no further anticoagulation HTN: - Lisinopril 2.5 mg daily Parkinsons: - Sinemet 1.5 tab TID LEN: - May use own CPAP Code Status: FULL RESUSCITATION Disposition: - Await approval for HSN. Medically optimal for D/C when arrangements made Continued [facility] stay due to: home environment unsafe for pt Discharge planning: rehab hospital ([facility])
[2017-01-23 15:54] VITALS: BP 147/74; PULSE 61; TEMP 36.1; O2SAT 100
[2017-01-23 15:56] VITALS: O2SAT 100
[2017-01-24] VITALS: BP 119/65; PULSE 60; TEMP 36.6; O2SAT 93
[2017-01-24] MEDS: LIDODERM (LIDOCAINE) PATCH 5% TD SCH (07:44)
[2017-01-24] MEDS: CYANOCOBALAMIN 500 MCG TAB (VIT B-12) PO SCH (07:45)
[2017-01-24] MEDS: RANITIDINE HCL 150 MG TAB PO SCH ×2 (07:45→20:44)
[2017-01-24] MEDS: CHOLECALCIFEROL 1000 INTER.UNIT TAB PO SCH (07:45)
[2017-01-24] MEDS: LISINOPRIL 2.5 MG TAB PO SCH (07:45)
[2017-01-24] MEDS: CARBIDOPA/LEVODOPA 25/100MG TAB PO SCH ×3 (07:45→16:57)
[2017-01-24] MEDS: ALLOPURINOL 300 MG TAB PO SCH (07:45)
[2017-01-24] MEDS: SERTRALINE HCL 50 MG TAB PO SCH (07:45)
[2017-01-24] MEDS: GABAPENTIN 300 MG CAP PO SCH ×4 (07:45→20:44)
[2017-01-24 08:00] VITALS: O2SAT 95
[2017-01-24 08:02] VITALS: BP 141/69; PULSE 74; TEMP 36.6; O2SAT 95
[2017-01-24] MEDS ORDERED: LDDP5 TD (10:19)
[2017-01-24] MEDS ORDERED: CLON0.5T3 PO (10:19)
[2017-01-24] MEDS ORDERED: SNM/25100 PO (10:19)
[2017-01-24] MEDS ORDERED: VLTG EXT (10:19)
--- NOTE | 2017-01-24 10:24 | Discharge Instructions ---
Discharge Instructions Date of Service Jan 24, 2017. Admission Reason for Admission: Altered Mental Status, Dehydration Discharge Discharge Diagnosis / Problem: Altered Mental Status - Dehydration Discharge Goals Goal(s): Decrease discomfort, Improve function, Increase independence Activity Recommendations Activity Level: Assistance Required Therapies: Physical Therapy, Occupational Therapy . Additional Information Patient informed of condition: Yes Advance Directives: Yes DNR: No Level of Care: Acute Rehab Communicable Disease: No Prognosis: Stable Instructions / Follow-Up Instructions / Follow-Up 76 yo WM with admitted on 01/18/2017 with Altered mental status/dehydration - no signs of infection appreciated Altered Mental Status: RESOLVED - Dehydration vs Parkinsonism complication - currently at baseline mentation L 5-7 Rib Fx with Possible Small Hemothorax: - Lidoderm patch and Voltaren gel with PRN Tylenol - Incentive spirometry S/P Sigmoidectomy for Sigmoid Volvulus: STABLE - Outpatient evaluation by surgeon - progressing appropriately Mesenteric Thrombus: - Recommendations for anticoagulation x 6 months but due to fall risk - family decision for no further anticoagulation and Coumadin has been D/C'd HTN: - Lisinopril 2.5 mg daily - Will stop Triamterene/HCTZ at this time - does have intermittent low BPs -- Upon further evaluation this may need to be reinstituted Parkinsons: - Sinemet 1.5 tab - adamant about taking this medication at times instructed in medication reconciliation LEN: - Utilizes CPAP at night Code Status: FULL RESUSCITATION Current Hospital Diet Patient's current hospital diet: Diabetes Type 2 Diet Discharge Diet Recommended Diet: Diabetes Type 2 Diet Pending Studies Studies pending at discharge: no Physician Orders On Transfer POLST Discussion: Not Applicable Laboratory Results Hemoglobin A1c Test 01/02/17 05:01 Range/Units Estimated Average Glucose 111 mg/dl Hemoglobin A1c 5.5 4.5-5.6 % Lipid Panel Test 12/23/16 05:30 Range/Units Triglycerides Level 74 0-150 mg/dl Cholesterol Level 74 0-200 mg/dl HDL Cholesterol 26 mg/dl Cholesterol/HDL Ratio 2.8 LDL Cholesterol, Calculated 33 mg/dl Medical Emergencies . Who to Call and When: Medical Emergencies: If at any time you feel your situation is an emergency, please call 911 immediately. . Non-Emergent Contact Non-Emergency issues call your: Primary Care Provider Call Non-Emergent contact if: you have a fever, your pain is concerning you, you have any medication questions . . "Provider Documentation" section prepared by Cristel Gacria. . Core Measure Problem Core Measures: None
--- NOTE | 2017-01-24 13:08 | Hospitalist Progress Note ---
Hospitalist Progress Note Date of Service Jan 24, 2017. Subjective Pt evaluation today including: conversation w/ patient, conversation w/ family , physical exam, chart review, lab review, review of studies, review of inpatient medication list Patient seen and evaluated. No acute events overnight. Continues to be at baseline mentation. Continues to have rib pain but is controlled with medications. Awaiting authorization for hopefully HSNV. Constitutional: No fever, No chills Respiratory: No cough, No shortness of breath Cardiovascular: + chest pain (L chest pain - rib), No palpitations Abdomen: No pain, No nausea, No vomiting, No diarrhea, No constipation Male : No dysuria Heme: No abnormal bleeding/bruising Medications Current Inpatient Medications Medications (Trade) Dose Ordered Sig/Chester Route Start Time Stop Time Status Last Admin Dose Admin Acetaminophen (Tylenol Tab) 650 mg Q4H PRN PO 01/18/17 18:00 02/17/17 17:59 01/22/17 17:43 650 MG Gabapentin (Neurontin Cap) 300 mg QID PO 01/18/17 21:00 02/17/17 20:59 01/24/17 12:29 300 MG Miconazole Nitrate (Desenex Powder) 1 appln BID PRN EXT 01/18/17 18:00 02/17/17 17:59 Sertraline HCl (Zoloft Tab) 50 mg DAILY PO 01/19/17 09:00 02/18/17 08:59 01/24/17 07:45 50 MG Ondansetron HCl (Zofran Inj) 4 mg Q6H PRN IV 01/18/17 18:00 02/17/17 17:59 Lidocaine (Lidoderm Patch 5%) 1 patch QAM TD 01/19/17 09:00 02/18/17 08:59 01/24/17 07:44 1 PATCH Miscellaneous (Remove Lidoderm Patch) 1 ea DAILY@21 N/A 01/18/17 21:00 02/17/17 20:59 01/23/17 20:24 1 EA Diclofenac Sodium (Voltaren 1% Top Gel) 1 appln QID PRN EXT 01/18/17 18:00 02/17/17 17:59 Miscellaneous (Iv Fluids Completed) 1 ea PRN PRN N/A 01/18/17 21:15 01/18/18 21:14 Polyethylene (Miralax Powder Packet) 17 gm DAILY PRN PO 01/19/17 12:30 02/18/17 12:29 Carbidopa/Levodopa (Sinemet 25/ 100MG Tab) 1.5 tab DAILY@0830,1230,1730 PO 01/21/17 08:30 02/20/17 08:29 01/24/17 11:41 1.5 TAB Allopurinol (Zyloprim Tab) 300 mg DAILY PO 01/22/17 09:00 02/21/17 08:59 01/24/17 07:45 300 MG Clonazepam (Klonopin Tab) 0.25 mg HS PRN PO 01/21/17 11:30 02/20/17 11:29 Lisinopril (Zestril Tab) 2.5 mg QAM PO 01/22/17 09:00 02/21/17 08:59 01/24/17 07:45 2.5 MG Ranitidine HCl (zANTac TAB) 150 mg BID PO 01/21/17 21:00 02/20/17 20:59 01/24/17 07:45 150 MG Cholecalciferol (Vitamin D Tab) 2,000 inter.unit DAILY PO 01/22/17 09:00 02/21/17 08:59 01/24/17 07:45 2,000 INTER.UNIT Cyanocobalamin (Vitamin B-12 Tab) 1,000 mcg DAILY PO 01/22/17 09:00 02/21/17 08:59 01/24/17 07:45 1,000 MCG Objective Vital Signs Date Time Temp Pulse Resp B/P (MAP) Pulse Ox O2 Delivery O2 Flow Rate FiO2 01/24/17 10:31 36.6 74 20 95 Room Air 01/24/17 09:16 Room Air 01/24/17 08:02 36.6 74 20 141/69 (93) 95 Room Air 01/24/17 08:00 95 Room Air 01/24/17 00:00 CPAP 01/24/17 00:00 36.6 60 20 119/65 (83) 93 BiPAP 01/23/17 15:56 100 Room Air 01/23/17 15:54 36.1 61 18 147/74 (98) 100 Room Air Physical Exam General Appearance: WD/WN, no apparent distress, + pertinent finding (mask- like face) Eyes: sclerae normal ENT: hearing grossly normal Neck: supple, no JVD, trachea midline Respiratory/Chest: lungs clear, normal breath sounds, no respiratory distress, no accessory muscle use Cardiovascular: regular rate, rhythm, no gallop, no murmur Abdomen: normal bowel sounds, non tender, soft Extremities: no pedal edema, no calf tenderness Neurologic/Psychiatric: alert, oriented x 3 Skin: normal color, warm/dry Laboratory Results Last 24 Hours Test 01/23/17 16:30 01/23/17 19:47 01/24/17 07:34 01/24/17 11:24 Bedside Glucose 108 mg/dl 112 mg/dl 101 mg/dl 111 mg/dl Assessment and Plan 76 yo WM with admitted on 01/18/2017 with Altered mental status/dehydration-- patient will be admitted to the medical surgical floor. No signs of infection at this time. Altered Mental Status: RESOLVED - Dehydration vs Parkinsonism complication - currently at baseline mentation L 5-7 Rib Fx with Possible Small Hemothorax: - Lidoderm patch and Voltaren gel - Incentive spirometry S/P Sigmoidectomy for Sigmoid Volvulus: STABLE - Outpatient evaluation by surgeon - progressing appropriately Mesenteric Thrombus: - Recommendations for anticoagulation x 6 months but due to fall risk - family decision for no further anticoagulation HTN: - Lisinopril 2.5 mg daily Parkinsons: - Sinemet 1.5 tab TID LEN: - May use own CPAP Code Status: FULL RESUSCITATION Disposition: - Await approval for HSNV. Medically optimal for D/C when arrangements made - medical status unchanged Continued [facility] stay due to: ambulation difficulties Discharge planning: rehab hospital
[2017-01-24 15:39] VITALS: BP 154/77; PULSE 63; TEMP 36.4; O2SAT 99
[2017-01-24 16:00] VITALS: O2SAT 99
[2017-01-24 23:33] VITALS: BP 132/71; PULSE 63; TEMP 36.9; O2SAT 95
[2017-01-25 07:10] VITALS: BP 129/67; PULSE 63; TEMP 37.3; O2SAT 93
[2017-01-25 08:00] VITALS: O2SAT 93
[2017-01-25] MEDS: CARBIDOPA/LEVODOPA 25/100MG TAB PO SCH ×3 (08:01→16:48)
[2017-01-25] MEDS: LISINOPRIL 2.5 MG TAB PO SCH (08:02)
[2017-01-25] MEDS: SERTRALINE HCL 50 MG TAB PO SCH (08:02)
[2017-01-25] MEDS: GABAPENTIN 300 MG CAP PO SCH ×3 (08:02→16:48)
[2017-01-25] MEDS: CYANOCOBALAMIN 500 MCG TAB (VIT B-12) PO SCH (08:02)
[2017-01-25] MEDS: CHOLECALCIFEROL 1000 INTER.UNIT TAB PO SCH (08:02)
[2017-01-25] MEDS: LIDODERM (LIDOCAINE) PATCH 5% TD SCH (08:02)
[2017-01-25] MEDS: ALLOPURINOL 300 MG TAB PO SCH (08:02)
[2017-01-25] MEDS: RANITIDINE HCL 150 MG TAB PO SCH (08:02)
--- NOTE | 2017-01-25 11:04 | Discharge Summary ---
Discharge Summary Date of Service Jan 25, 2017. Discharge Summary Admission Date: Jan 18, 2017 at 18:06 Discharge Date: Jan 25, 2017 Discharge Disposition: Rehab Principal Diagnosis: Encephalopathy from Dehydration vs Pain vs Parkinsonism and L Rib Fx Problems/Secondary Diagnoses: 1. Multiple Falls 2. L 5-7 Rib Fx with Possible Small Hemothorax 3. 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 HTN 6. Parkinsonism 7. LEN on night CPAP Immunizations: Have You Had Influenza Vaccine: Unknown History of Tetanus Vaccine?: Unknown History of Pneumococcal: Unknown History of Hepatitis B Vaccine: Unknown Procedures: HEAD CT NONCONTRAST Findings: Suboptimal evaluation the brain due to the motion artifact. The calvarium and skull base are intact. There is no mass, hematoma, midline shift, acute infarct. White matter hypodensity is nonspecific but suggestive of microvascular ischemic change. The ventricles and sulci demonstrate mild age-related involutional changes. Impression: Motion artifact. No definite acute intracranial abnormality. Consider repeat study if the patient symptoms continue to progress. CT OF THE CHEST WITH IV CONTRAST FINDINGS: There is no evidence of traumatic injury to the thoracic aorta. The heart is moderately enlarged. No enlarged thoracic lymph nodes are identified. There is no pneumothorax. A small left pleural effusion is present. Linear and groundglass opacities within lungs favor atelectasis. No acute thoracic spine fracture is present. There are acute minimally displaced fractures of the left fifth and seventh ribs as well as a nondisplaced fracture of the lateral left sixth rib. These are acute. There are additional old left-sided rib fractures. Calcified right lower lobe granuloma is present. Lungs are suboptimally assessed due to respiratory motion. IMPRESSION: 1. Acute mildly displaced fractures of the lateral left fifth and seventh ribs and acute nondisplaced fracture of the lateral left sixth rib. No pneumothorax. Small left pleural effusion may reflect a small hemothorax given the rib fractures. 2. Subpleural and ground glass opacities which favor atelectasis. An infectious process is considered less likely. 3. No additional acute traumatic findings within the chest. ABD/PELVIS IV CONTRAST ONLY FINDINGS: The examination is slightly degraded by motion artifact, which decreases image quality and diagnostic sensitivity. Encoding Clerk topogram: Gaseous distention of bowel. Lung bases: Extensive bibasilar consolidation increased from prior. Small left pleural effusion. Multichamber enlargement of the heart. Aortic valve atherosclerosis. No pericardial effusion. Liver: Normal morphology. No liver lesion. Patent hepatic vasculature. Biliary: No intrahepatic or extrahepatic biliary ductal dilatation. Normal gallbladder. Pancreas: Mild parenchymal atrophy. Duodenal diverticulum noted in the region of the pancreatic head. Spleen: Parenchymal calcification, possibly suggesting old granulomatous disease. Adrenal glands: Nonspecific nodular thickening of the adrenal glands. Kidneys and ureters: Exophytic 8 cm simple appearing left renal cyst with lobular extension into the renal sinus. No hydronephrosis. Ureters normal. Bladder: Mild circumferential bladder wall thickening. Pelvic organs: Prostate enlargement likely secondary to benign prostatic hyperplasia. Bowel: Anastomosis noted in the region of the upper rectum likely indicating prior sigmoidectomy. Moderate stool burden throughout the colon, which is also mildly distended with gas. Ileocolic anastomosis at the level of the hepatic flexure, where there is associated minimal surrounding stranding, possibly indicating chronic scarring/adhesions. No bowel obstruction. Small bowel is not significantly distended. Duodenal diverticulum at the level of pancreatic head suggested. No pneumatosis. Peritoneal cavity: The previously noted collection immediately superior to the sigmoid anastomosis has slightly decreased in size now measuring 4.1 x 1.4 cm, previously 4.4 x 2.4 cm. A small focus of gas is noted within this collection. Gas within the collection appears new from prior. Vasculature: Interval opacification of the jejunal vein draining into the superior mesenteric vein without evidence of thrombus on the current exam. Atherosclerosis of the normal caliber abdominal aorta. Lymph nodes: No enlarged lymph nodes in the abdomen or pelvis. Abdominal wall: Postsurgical changes along the midline ventral abdominal wall. Musculoskeletal: Degenerative changes of the spine. IMPRESSION: 1. No evidence of acute intra-abdominal injury. 2. Postsurgical changes of sigmoidectomy with interval decrease in size of the gas and fluid containing collection immediately superior to the anastomosis. This fluid collection remains concerning for an abscess secondary to anastomotic leak, especially given the presence of gas, which is new from prior. 3. Interval resolution of previously demonstrated filling defect within a branch of the superior mesenteric vein. 4. Persistent colonic distention with stool and gas, suggesting colonic ileus. Consultations: 1. General Surgery - Dr. Ellis 2. Wound Care 3. PT/OT Medication Reconciliation New Medications: Diclofenac Sod (Voltaren) 100 Appln/100 Gm Gel 1 APPLN EXT QID PRN for WHEN LIDODERM PATCH NOT ON for 14 Days Levodopa/Carbidopa (Sinemet 25MG/100MG) 1 Ea Tab 1.5 TAB PO DAILY@0830,1230,1730 for 30 Days, TAB Lidocaine (Lidocaine) 1 Patch Tdsy 1 PATCH TD QAM for 14 Days Continued Medications: Acetaminophen (Tylenol) 325 Mg Tab 650 MG PO, TAB Allopurinol (Zyloprim) 300 Mg Tab 300 MG PO DAILY, TAB Cholecalciferol (Vitamin D3) 2,000 Unit Cap 2000 UNITS PO DAILY for 90 Days, CAP 3 Refills Clonazepam (Klonopin) 0.5 Mg Tab 0.25 MG PO HS PRN for Sleep for 3 Days, #3 TAB (This prescription has been renewed) Cyanocobalamin (Vitamin B12) 1,000 Mcg Tab 1000 MCG PO DAILY for 30 Days Gabapentin (Neurontin) 300 Mg Cap 300 MG PO QID, CAP Lisinopril (Lisinopril) 2.5 Mg Tab 2.5 MG PO QAM for 30 Days, #30 TAB Miconazole Nitrate (Desenex Shake Powder) 43 Appln/43 Gm Powd 1 APPLN EXT BID PRN for Affected Skin Folds for 30 Days Ondansetron Hcl (Zofran) 4 Mg Tab 4 MG PO q6hrs PRN for Nausea, TAB Polyethylene Glycol 3350 (Bulk (Polyethylene Glycol 3350) 1 Pow Pow 17 GM PO DAILY PRN for Constipation, #255 GM Ranitidine (Zantac) 150 Mg Tab 150 MG PO BID, TAB Sertraline (Zoloft) 25 Mg Tab 50 MG PO DAILY for 30 Days, #60 TAB 2 Refills Discontinued Medications: Carbidopa/Levodopa (Sinemet 25MG/100MG) Tab 1.5 TAB PO TID for 30 Days, TAB Triamterene/Hctz (Triamterene/Hctz 37.5-25MG) 1 Tab Tab 0.5 TAB PO DAILY for 30 Days, #15 TAB 0 Refills Warfarin Sod (Coumadin) 5 Mg Tab 5 MG PO DAILY@1600 for 30 Days, TAB Discharge Exam Review of Systems: Constitutional: No fever, No chills Respiratory: No cough, No dyspnea on exertion, No dyspnea at rest Cardiovascular: No chest pain, No palpitations Abdomen: No pain, No nausea, No vomiting, No diarrhea, No constipation Musculoskeletal: No swelling, No calf pain Genitourinary - Male: No dysuria Hematologic / Lymphatic: No abnormal bleeding/bruising Physical Exam: General Appearance: WD/WN, no apparent distress, + pertinent finding (flat mask-like face) Eyes: sclerae normal ENT: hearing grossly normal Neck: supple, no JVD, trachea midline Respiratory/Chest: lungs clear, normal breath sounds, no respiratory distress, no accessory muscle use Cardiovascular: regular rate, rhythm, no gallop, no murmur Abdomen / GI: normal bowel sounds, non tender, soft, + pertinent finding ( well-approximated/healed mid-line surgical incision) Extremities: no pedal edema Neurologic/Psychiatric: alert, oriented x 3 Skin: normal color, warm/dry Hospital Course ADMISSION: The patient is a 76-year-old male with most recent hospitalizations from December 14 to December 28 no from January 03 to January 04, during which time he underwent surgery for sigmoid volvulus and had issues with postoperative ileus and question of mesenteric thrombus. He had been discharged from [facility] days ago, and family reports he had been gradually becoming more confused and less interactive, and then worsened yesterday, when he had his first fall, and then had a second fall earlier in the day prior to arrival. His sister reports that he has been leaning toward the right ever since that injury to his left side. She reports that he did not hit his head during this time. His sister does report that since he is been in the emergency department and had gotten IV fluids, that he seems to become more responsive and interactive with her. HOSPITAL COURSE: Mr. Montalvo was admitted for AMS from dehydration vs Parkinsonism and did appropriately respond to IVF and quickly went to baseline mentation. He has been experiencing multiple falls and did sustain L 5-7 Rib Fx with a possible small hemothorax visible on imaging. Due to fall risk, family decided against further anticoagulation for mesenteric thrombus which was recently discovered after sigmoidectomy for a sigmoid volvulus. Patient follows as outpatient for his sigmoidectomy and is progressing as expected. PT/OT evaluations were obtained that recommended inpatient rehab. Given intermittent low pressures and falls his triameterene/HCTZ was D/Cd but may need resumed pending further evaluation. Patient is at baseline mentation and is optimal for D/C to [facility]. Total Time Spent: Greater than 30 minutes This includes examination of the patient, discharge planning, medication reconciliation, and communication with other providers. Discharge Instructions Please refer to the electronic Patient Visit Report (Discharge Instructions) for additional information. Additional Copies To RolandLoy mckay; John Rayo M.D.
[2017-01-25 14:49] VITALS: BP 103/62; PULSE 59; TEMP 36.7; O2SAT 96
[2017-01-25 16:00] VITALS: O2SAT 96
== END 2017-01-25 18:10 | DRG 70 ==
LOC: EDBD 12:58 → C.EDC 13:04 → C.MS2W 18:06 → ENRESERV 18:16
PROVIDERS: ADMIT Hospitalist; ATTEND Internal Medicine
DX: G93.40 Encephalopathy, unspecified (principal); K55.069 Acute infarction of intestine, part and extent unspecified; S22.42XA Multiple fractures of ribs, left side, initial encounter for closed fracture; Z83.3 Family history of diabetes mellitus; Z80.3 Family history of malignant neoplasm of breast; Z90.49 Acquired absence of other specified parts of digestive tract; I10 Essential (primary) hypertension; G20 Parkinson's disease; G47.33 Obstructive sleep apnea (adult) (pediatric); K21.9 Gastro-esophageal reflux disease without esophagitis; G52.1 Disorders of glossopharyngeal nerve; M10.9 Gout, unspecified; W19.XXXA Unspecified fall, initial encounter; Z79.01 Long term (current) use of anticoagulants

== ENCOUNTER 2017-04-22 13:22 | Emergency (ER) | payer OTHER ==
[~2017-04-22] VITALS: Ht 182.9 cm; Wt 95.0 kg
[~2017-04-22 13:22] MED LIST changes: +ACET-1311 PO; -CARB25TA12 PO; -CMD5 PO; +LDDP5 TD; +SNM/25100 PO; -TRIATAB3 PO; +VLTG EXT
[2017-04-22 13:34] VITALS: TEMP 36.7; Ht 182.9 cm; Wt 95.0 kg
[2017-04-22] MEDS ORDERED: SERT50TA PO (13:57)
[2017-04-22] MEDS ORDERED: RANI300T2 PO (13:57)
--- NOTE | 2017-04-22 14:05 | DIAGNOSTIC IMAGING REPORT ---
RIGHT WRIST 4 VIEWS CLINICAL HISTORY: Fall with right wrist pain. FINDINGS: 4 views of the right wrist are obtained. No prior studies are available for comparison at the time of dictation. The skeletal structures are osteopenic. No fracture is seen. Mild arthritic change is present at the first carpometacarpal joint. The joint spaces are otherwise preserved. Soft tissue edema is present around the wrist and the distal forearm. IMPRESSION: Soft tissue swelling with no radiographic evidence of right wrist fracture. Consider short-term radiographic follow-up if there is clinical concern for occult fracture. Electronically signed by: Darío Pryor M.D. 04/22/2017 2:03 PM Dictated Date/Time: 04/22/2017 2:02 PM
[2017-04-22 15:02] VITALS: BP 120/73; PULSE 90; O2SAT 91
--- NOTE | 2017-04-22 16:01 | EMERGENCY ROOM VISIT NOTE ---
ED Visit Note First contact with patient: 13:37 76 year old male with an injury to his wrist was fully evaluated by Jah Crouch PA-C. Please his note. I also independently evaluated the patient.
--- NOTE | 2017-04-23 07:15 | EMERGENCY ROOM VISIT NOTE ---
ED Visit Note First contact with patient: 13:37 Chief Complaint: I fell and hurt my right wrist. History of Present Illness: Mr. Montalvo is a 76-year-old white male who ambulates in the ED using a walker accompanied by his daughter complaining of left wrist pain. Historically patient reports she has a history of Parkinson's and is unstable on his feet some time. Patient reports approximately one hour ago he he was walking into the kitchen with his walker and felt like he was going to fall. He attempted to lean on the refrigerator but did not realize it was slightly further way than he thought. He then slid down the door of the refrigerator and onto the floor. As he slid on the refrigerator he had his hand trapped between himself and the refrigerator with a watch on and injured his right wrist. He reports there was no lightheaded or his anus before the fall. At the time of the fall he did not strike his head or have a loss of consciousness. After the fall he has had no signs of head injury. Because of his Parkinson's he could not get himself off the floor and had to call family members for assistance. He reports his daughter arrived and noticed that he was bleeding and was complaining of left wrist pain. She assisted him to the standing position and brought him into the emergency department for further evaluation and care. Currently the patient's only complaint is left wrist pain. He describes this as a throbbing and burning sensation sensation. He rates his discomfort 3.5/ 10. His pain is nonradiating. His pain worsens with flexion and extension of the wrist as well as palpation. He has not identified any alleviating factors related to the pain. His daughter reports she has not had a medication for pain prior to arrival at the hospital. He denies any headaches, dizziness, lightheadedness, visual changes, hearing changes, difficulty speaking, difficulty swallowing, chest pain, shortness of breath, abdominal pain, nausea, vomiting, right upper extremity weakness/ numbness/tingling. Review of Systems: As noted above in history of present illness. 8 body systems were reviewed and found to be negative as noted above. Past Medical History: As previously noted and hypertension, diabetes, diverticulitis, gout, peripheral neuropathy and mixed hyperlipidemia. Current Medications: Medications Dose Route/Sig Max Daily Dose Days Date Category Zantac (Ranitidine HCl) 300 Mg Tab 300 Mg PO BID 04/22/17 Reported Sinemet 25MG/100MG (Carbidopa/Levodopa) 1 Ea Tab 1.5 Tab PO DAILY@0830,1230,1730 30 01/24/17 Rx Klonopin (Clonazepam) 0.5 Mg Tab 0.25 Mg PO HS PRN 3 01/24/17 Rx Tylenol (Acetaminophen) 325 Mg Tab 650 Mg PO Q6 PRN 01/18/17 Reported Polyethylene Glycol 3350 (Polyethylene Glycol 3350 (Bulk) 1 Pow Pow 17 Gm PO DAILY PRN 12/28/16 Rx Zofran (Ondansetron HCl) 4 Mg Tab 4 Mg PO Q6HRS PRN 09/05/16 Reported Vitamin B12 (Cyanocobalamin) 1,000 Mcg Tab 1,000 Mcg PO DAILY 30 07/17/16 Rx Vitamin D3 (Cholecalciferol) 2,000 Unit Cap 2,000 Units PO DAILY 90 07/11/16 Reported Neurontin (Gabapentin) 300 Mg Cap 300 Mg PO QID 12/12/13 Reported Zyloprim (Allopurinol) 300 Mg Tab 300 Mg PO DAILY 12/12/13 Reported Allergies to Medications: Patient denies. Social History: Patient is not employed; he feels safe in his home environment; he denies tobacco use. Physical Examination: Vital Signs: Date Time Temp Pulse Resp B/P (MAP) Pulse Ox O2 Delivery O2 Flow Rate FiO2 04/22/17 15:02 90 18 120/73 91 04/22/17 13:34 36.7 98 17 113/56 93 Room Air GENERAL: 76-year-old male in mild distress due to pain, nontoxic-appearing, afebrile and hemodynamically stable. NEUROLOGICAL: Awake, alert and oriented to person, place and time. No focal motor sensory deficits. Cranial nerves II through XII grossly intact. Good short-term and long-term recall. SKIN: Warm, dry and pink. Right Forearm: 5 x 5 cm deep abrasion on the posterior aspect of the distal forearm extending into the wrist. Minimal bleeding. Additionally noted that the patient has a history of dry skin and there are some superficial abrasions on his legs that has only abraded the superficial skin. HEENT: Atraumatic and normocephalic. No facial trauma noted. No malocclusion. No intraoral trauma. Airway patent. Speech is normal and clear. Trachea midline. No jugular venous distention. BACK: No tenderness over the bony cervical and thoracic spine. Full range of motion of the cervical spine. THORAX: Lungs sounds are clear to auscultation and equal bilaterally with symmetrical chest wall. No crepitus, tenderness, subcutaneous air or deformities noted. HEART: Regular rate and rhythm. No gallops, rubs or murmurs are appreciated. ABDOMEN: Flat, soft and nontender. Positive bowel sounds in all quadrants. No guarding, rigidity or organomegaly. UPPER EXTREMITIES: No gross bony deformities. No tenderness in the shoulders, upper arms, elbows or hands. On the right forearm patient has a soft tissue injury as noted above. There is mild tenderness and swelling in this area predominantly over the distal ulna. I do not appreciate any bony deformity or crepitus. Throughout the hand the skin was warm and pink and capillary refill is brisk. LOWER EXTREMITIES: No gross bony deformity. No shortening or malrotation. No tenderness in the hips, knees, lower legs, ankles. All distal neurovascular statuses are intact and equal bilaterally. ED Course: Patient is assessed as noted above. Patient's medication list was reviewed. Patient was offered pain medication and refused. Right Wrist X-Rays: Were read by myself and the radiologist showing no acute fractures or dislocations. Radiologist does note the skeletal structures are osteopenic and there are mild arthritic changes and soft tissue edema. Patient's wrist abrasion was cleansed and deep breathe did removing the superficial abraded tissues. The wound was then covered with a sterile bacitracin dressing and patient's wrist was placed in a lacer splint; patient was tried with his walker and splint and was able to ambulate well. Patient's case was reviewed with Dr. Jo; we agreed on diagnostic approach, treatment, disposition and plan. Patient and daughter were educated about today's findings and instructed on his treatment plan; they verbalized understanding and agreement with this plan. Clinical Impression: Right wrist abrasion. Status post fall. Patient's blood pressure: Normal Blood pressure disposition: None required. Disposition: Patient discharged home in stable condition accompanied by his daughter; prior to departure he was reassessed and subjectively reported he was pain-free. Plan: Patient was encouraged to continue his current medications as prescribed. Patient was encouraged to alternate ibuprofen and acetaminophen as needed for pain. Patient was encouraged use ice over areas of pain and swelling and to use his splint. Patient was educated on wound care and signs of infection. Patient was encouraged to follow-up with family physician for recheck or any signs of infection. Patient was encouraged return the ED for worsening/uncontrolled pain, uncontrolled swelling, signs of infection or any new/concerning symptoms.
== END 2017-04-22 15:03 | disposition home or self-care (01) ==
LOC: C.EDB 13:25 → C.EDD 15:03
DX: S60.811A Abrasion of right wrist, initial encounter (principal); S80.812A Abrasion, left lower leg, initial encounter; S80.811A Abrasion, right lower leg, initial encounter; W18.39XA Other fall on same level, initial encounter; G20 Parkinson's disease; I10 Essential (primary) hypertension; E11.42 Type 2 diabetes mellitus with diabetic polyneuropathy; E78.5 Hyperlipidemia, unspecified

== ENCOUNTER → 2017-07-05 | Outpatient (CLI) | payer OTHER ==
[~2017-07-05] MED LIST changes: -LDDP5 TD; -LSN25 PO; -MCTP EXT; +RANI300T2 PO; -SERT25TA PO; +SERT50TA PO; -VLTG EXT; -ZNTT/150 PO
[2017-07-05 17:29] LABS: HEMATOCRIT 44.2 % (42-52); HEMOGLOBIN 14.1 g/dL (14.0-18.0); MEAN CELL VOLUME 91.1 fL (80-100); MEAN CORPUSCULAR HEMOGLOBIN 29.1 pg (25-34); MEAN CORPUSCULAR HGB CONC 31.9 g/dl (32-36); MEAN PLATELET VOLUME 11.1 fL (7.4-10.4); PLATELET COUNT 234 K/uL (130-400); RED CELL DISTRIBUTION WIDTH CV 16.6 % (11.5-14.5); RED CELL DISTRIBUTION WIDTH SD 54.7 fL (36.4-46.3)
[2017-07-05 18:01] LABS: ALT/SGPT 11 U/L (12-78); AST/SGOT 14 U/L (15-37); BLOOD UREA NITROGEN 22 mg/dl (7-18); CALCIUM 9.1 mg/dl (8.5-10.1); CARBON DIOXIDE 28 mmol/L (21-32); GLUCOSE 115 mg/dl (70-99); POTASSIUM 4.2 mmol/L (3.5-5.1); SODIUM 135 mmol/L (136-145)
[2017-07-05 18:04] LABS: ALKALINE PHOSPHATASE 107 U/L (45-117); TOTAL PROTEIN 8.3 gm/dl (6.4-8.2)
[2017-07-06 06:39] LABS: HEMOGLOBIN A1C 5.9 % (4.5-5.6)
== END | disposition home or self-care (01) ==
LOC: C.LABPVFM 11:25
PROVIDERS: ATTEND Family Medicine
DX: E11.9 Type 2 diabetes mellitus without complications (principal); G20 Parkinson's disease

== ENCOUNTER 2018-08-21 11:11 | Inpatient (IN) ==
[2018-08-21 12:37] LABS: Basophils # (auto) 0.01 K/uL (0-0.2); Basophils % (auto) 0.2 %; Eosinophils # (auto) 0.06 K/uL (0-0.5); Eosinophils % (auto) 1.1 %; Hematocrit (blood only) 37.2 % (42-52); Hemoglobin 12.1 g/dL (14.0-18.0); Immature Granulocytes # (auto) 0.01 K/uL (0.00-0.02); Immature Granulocytes % (auto) 0.2 %; Lymphocytes # (auto) 1.34 K/uL (1.2-3.4); Lymphocytes % (auto) 23.9 %; Mean Corpuscular Hgb Conc 32.5 g/dL (32-36); Mean Corpuscular Volume 93.9 fL (80-100); Mean Platelet Volume 10.4 fL (7.4-10.4); Monocytes % (auto) 23.2 %; Neutrophils # (auto) 2.89 K/uL (1.4-6.5); Neutrophils % (auto) 51.4 %; Platelet Count 196 K/uL (130-400); RDW Standard Deviation 51.2 fL (36.4-46.3); Red Blood Count 3.96 M/uL (4.7-6.1); White Blood Count 5.61 K/uL (4.8-10.8)
[2018-08-21 12:45] LABS: INR 1.2 (0.9-1.1); Prothrombin Time 11.9 Seconds (9.0-12.0)
[2018-08-21 12:55] LABS: Appearance Urine Clear (Clear); Bilirubin Urine Negative (Negative); Blood Urine Negative (Negative); Color Urine Yellow; Glucose Urine UA Negative (Negative); Ketones Urine Negative (Negative); Leukocyte Esterase Urine Negative (Negative); Nitrite Urine Negative (Negative); Protein Urine Negative (Negative); Specific Gravity Urine 1.017 (1.000-1.030); Urobilinogen Urine Negative (Negative)
[2018-08-21 12:55] LABS: Albumin Level 3.7 gm/dl (3.4-5.0); BUN Creatinine Ratio 23.8 (10-20); Calcium 8.7 mg/dl (8.5-10.1); Creatinine Clr Calc Pharmacy 58.7 ml/min; Est GFR (African American) 59.9; Est GFR (Non-African American) 51.7; Magnesium 1.8 mg/dl (1.8-2.4); Potassium 4.1 mmol/L (3.5-5.1)
[2018-08-21] MEDS: SODIUM CHLORIDE 0.9% 500 ML IV SCH ×2 (12:59→20:37)
[2018-08-21 13:00] LABS: Albumin Globulin Ratio 0.9 (0.9-2); Bilirubin,Total 1.3 mg/dl (0.2-1); Total Protein 7.7 gm/dl (6.4-8.2); Troponin I 0.017 ng/ml (0-0.045)
[2018-08-21] MEDS ORDERED: IOVERSOL 100ml IV PRN (14:23)
--- NOTE | 2018-08-21 14:27 | Ultrasound Report ---
BILATERAL LOWER EXTREMITY VENOUS DOPPLER HISTORY: Acute pain and swelling of the bilateral lower legs edema, erythema L>R COMPARISON STUDY: Duplex venous Doppler study 07/17/2016 FINDINGS: There is normal compressibility, flow, and augmentation within the bilateral lower extremit y deep venous systems. Limited visualization of the calf vessels. IMPRESSION: No sonographic evidence of deep venous thrombosis within the right or left lower extremity. Electronically signed by: Eren Evans M.D. 08/21/2018 2:25 PM
--- NOTE | 2018-08-21 14:38 | CT Scan Report ---
CT SCAN OF THE BRAIN WITHOUT IV CONTRAST CLINICAL HISTORY: Change in mental status. COMPARISON STUDY: CT of the brain dated 04/22/2018. TECHNIQUE: Unenhanced axial CT scan of the brain is performed from the vertex to the skull base. A do se lowering technique was utilized adhering to the principles of ALARA. The patient was scanned twice due to significant motion artifact. FINDINGS: Brain parenchyma: There are age-related involutional changes noting mild subcortical and periventric ular microangiopathic change. There is no hemorrhage, mass effect, or evidence of acute territorial i schemia by CT criteria. Montiel-white matter differentiation is preserved. No extra-axial fluid collecti on is seen. Ventricles, sulci, cisterns: Prominent secondary to involutional change. Intracranial vasculature: There is atherosclerotic calcification of the cavernous carotid and vertebr al arteries. Calvarium: Unremarkable. Sinuses and mastoids: The visualized paranasal sinuses are clear. The mastoid air cells are well pneu matized. Orbits: The bony orbits are grossly intact. There are bilateral ocular lens implants. IMPRESSION: There is no hemorrhage, mass effect, or evidence of acute territorial ischemia by CT crit josé manuel noting a motion compromised examination. Electronically signed by: Darío Pryor M.D. 08/21/2018 2:37 PM
--- NOTE | 2018-08-21 14:54 | CT Scan Report ---
CT abd pelvis oral and IV con CLINICAL HISTORY: 77 years-old Male presenting with distention, tympany, generalized abdominal pain, hx surgery. TECHNIQUE: Multidetector CT of the abdomen and pelvis was performed after the administration of oral and intravenous contrast. IV contrast: 94 mL of Optiray 320. One or more dose lowering techniques wer e used consistent with the principles of ALARA (as low as reasonably achievable), including automatic exposure control, mA or kV adjustment to individual patient size, and/or use of iterative reconstruc tion. COMPARISON: 04/22/2018. CT DOSE (mGy.cm): The estimated cumulative dose is 2374.97 mGy.cm. FINDINGS: Harvest Contractor topogram: Gaseous distention of bowel. The patient is edentulous. Positioning of the arms at the sides to degrades image quality limiting evaluation of the upper abdom en. Lung bases: Mild multichamber enlargement of the heart. Coronary artery and aortic valve calcificatio n. No pericardial or pleural effusion. Calcified granuloma in the right lower lobe. Bandlike opacitie s in the lower lobes likely atelectasis, left greater than right. Respiratory motion artifact at the lung bases degrades evaluation. Liver: Congenital hypoplasia of the medial segments of the left hepatic lobe. No focal lesion. Patent hepatic vasculature. Biliary: No intrahepatic or extrahepatic biliary ductal dilatation. Normal gallbladder. Pancreas: Moderate parenchymal atrophy. Spleen: Punctate calcifications in the spleen suggest a history of granulomatous disease. Adrenal glands: Normal. Kidneys and ureters: Prominent simple appearing left renal cyst unchanged. Mild pelviectasis, left gr eater than right. Trace urothelial thickening may be present. No hydronephrosis. Bladder: Circumferential bladder wall thickening. Pelvic organs: Prostate enlargement likely secondary to benign prostatic hyperplasia. Bowel: Postsurgical changes of the sigmoid colon with a colocolonic anastomosis at the rectosigmoid j unction, which is patent. Fluid noted in the colon suggesting a diarrheal state. Additional postsurgi cesar changes of partial right hemicolectomy with a ileocolic anastomosis in the right upper quadrant. This also appears widely patent. No bowel obstruction. Oral contrast has not yet reached the colon. E xtended segment of small bowel wall thickening in the distal small bowel. This segment of bowel has a wall thickness of 7 mm and is located in the right mid abdomen. This is approximately 15-30 cm upstr eam from the anastomosis. Peritoneal cavity: No free fluid or intraperitoneal gas. Lymph nodes: No enlarged lymph nodes in the abdomen or pelvis. Vasculature: Atherosclerosis of the normal caliber abdominal aorta. IVC patent. Abdominal wall: Postsurgical changes of the ventral midline abdomen. Bilateral varicoceles may be pre sent. Musculoskeletal: Degenerative changes of the spine. IMPRESSION: 1. Fluid in the colon suggests a diarrheal state. Gaseous distended colon suggests either pseudoobst ruction or ileus. 2. Postsurgical changes of the bowel including partial right hemicolectomy and presumed partial sigm oidectomy with patent ileocolic and colocolonic anastomoses. No bowel obstruction. 3. Wall thickening of a segment of distal small bowel. This could suggest infectious or inflammatory enteritis or post radiation change among other etiologies. 4. Chronic bladder outlet obstruction with resultant suspected reflux uropathy evidenced by urotheli al thickening. This is in the setting of prostatomegaly. 5. Cardiomegaly. Electronically signed by: John Alejandre M.D. 08/21/2018 2:53 PM
[2018-08-21] MEDS ORDERED: CEFAZOLIN 1000MG 1,000 MG/7.5 ML SYR IV STA (16:03)
--- NOTE | 2018-08-21 17:54 | History & Physical Report ---
Date of Service August 21, 2018 Assessment & Plan (1) Parkinson's disease: - At this time patient appears to have progression of his underlying parkinson's disease with worsening gait and hallucinations - CT Head: There is no hemorrhage, mass effect, or evidence of acute territorial ischemia by CT criteria noting a motion compromised examination. - Continue home Sinemet 100mg-25mg as per home dose (2 tabs at breakfast, lunch, and 3pm, 1 tab at 7pm and 1 ER tab at bedtime) - Consult [facility] (Neurologist is Cheyanne Forbes) (2) Cellulitis: - Mild cellulitis with no s/s of systemic infection - Ancef 1gm q8h IV - Convert to PO Keflex 500mg PO TID on discharge (3) Abdominal distension: - Continue home GI regiment including MiraLAX and Dulcolax - Diabetic/Heart Healthy diet (4) History of coronary artery disease: - Continue home Aspirin, Clopidogrel, Atorvastatin, and Metoprolol (5) Diabetes: - Hold home Metformin - SSI with BSG AC/HS (6) Hypertension: - Continue home Lisinopril (7) Obstructive sleep apnea: - CPAP ordered (8) Anxiety: - Continue home Sertraline (9) Gout: - Continue home Allopurinol History of Present Illness The patient is a 77-year-old male with a past medical history of Parkinson's disease, hypertension, hyperlipidemia, diabetes, and STEMI in April 2018, gout, that presents with multiple complaints including hallucinations, difficulties walking, abdominal distention, and lower extremity cellulitis. The patient was recently evaluated 1 week ago his neurologist and found that his Parkinson's disease at that time was stable. Approximately 2 days ago he began to have difficulties walking mostly attributed to difficulty moving his left leg. The symptoms appeared to dissipate on Sunday, but began to resurface this morning. The symptoms were strange because he usually has difficulty with moving his right leg or symptoms related to Parkinson's on his right side. His daughter also notes that he has been having increased hallucinations over the last 48 hours as well. The only change made at any of his medications recently was the timing of his Sinemet. The medication was changed to be taken at 3 PM, from a previous time 4:30 PM. The patient also had a fall 2 weeks ago that resulted in a laceration of his left leg. 24 hours ago his daughter began to notice some increased swelling and erythema of the left leg. He is also had some tenderness over the area of erythema as well. The patient has also had chronic bowel issues stemming from previous abdominal surgeries. On Sunday evening the patient was having some discomfort and the daughter gave him a dose of Gas-X. The patient takes MiraLAX twice daily in addition to Dulcolax in the evening. Over the last 48 hours, the patient has been having distention of his abdomen. His stool is usually loose due to his bowel regimen, and this has remained unchanged. He denies any fever, chills, chest pain, shortness of breath, or any other acute complaints at this time. Allergies Allergy/AdvReac Type Severity Reaction Status Date / Time tramadol AdvReac Severe Confusion Unverified 08/21/18 12:16 Home Medications Home Medications Medication Instructions Recorded Confirmed Type allopurinol 300 mg PO QAM 08/21/18 08/21/18 History aspirin 81 mg PO QAM 08/21/18 08/21/18 History atorvastatin 80 mg PO QAM 08/21/18 08/21/18 History bisacodyl [Dulcolax (bisacodyl)] 0 dose PO QPM 08/21/18 08/21/18 History carbidopa-levodopa 1 dose PO DIRECTED 08/21/18 08/21/18 History carbidopa-levodopa 1 tab PO HS 08/21/18 08/21/18 History cholecalciferol (vitamin D3) 1,000 unit PO QAM 08/21/18 08/21/18 History [Vitamin D3] clopidogrel 75 mg PO QAM 08/21/18 08/21/18 History cyanocobalamin (vitamin B-12) 2,000 mcg PO QAM 08/21/18 08/21/18 History [Vitamin B-12] gabapentin 300 mg PO QID 08/21/18 08/21/18 History lisinopril 5 mg PO QAM 08/21/18 08/21/18 History metformin 500 mg PO BID 08/21/18 08/21/18 History metoprolol succinate 25 mg PO QAM 08/21/18 08/21/18 History polyethylene glycol 3350 1 dose PO BID 08/21/18 08/21/18 History ranitidine HCl 150 mg PO BID 08/21/18 08/21/18 History sertraline 50 mg PO QAM 08/21/18 08/21/18 History Past Med/Surg History Medical History Heart attack (Resolved) Falls (Acute) Anxiety (Chronic) Gout (Chronic) Peripheral neuropathy (Chronic) Cervical stenosis of spine (Resolved) History of rhabdomyolysis (Resolved) Aortic regurgitation Hypertension Parkinson's disease Personal history of DVT (deep vein thrombosis) Sleep apnea Type 2 diabetes mellitus Surgical History History of cataract surgery (Resolved) History of right knee joint replacement (Resolved) H/O hemicolectomy Family History Other Medical history non-contributory Social History Preferred Language: [place] Beliefs That Will Affect Care: None marital status: / Current Living Situation: Family Feels Safe at Home: Yes Smoking Status: Former smoker Hx Alcohol Use: No (quit 20 yrs ago) Hx Substance Use: No Review of Systems See HPI for pertinent positives and negatives. A total of ten systems were reviewed and were otherwise negative. Physical Exam Vital Signs (Past 24 Hours): Last Vital Signs Temp 36.4 C L 08/21/18 11:14 Pulse 81 08/21/18 17:00 Resp 18 08/21/18 17:00 BP 132/74 08/21/18 17:00 Pulse Ox 93 08/21/18 17:00 Constitutional: + frail appearing Eyes: PERRL, conjunctivae normal, anicteric sclerae ENMT: external ear and nose normal, oropharynx normal Neck: trachea midline, no thyromegaly Respiratory: normal respiratory effort, lungs clear to auscultation Cardiovascular: RRR, no murmur, no edema Gastrointestinal (Abdomen): Inspection/Auscultation: + abdomen distended and normal bowel sounds Percussion/Palpation: abdomen soft; abdomen nontender and no guarding Musculoskeletal: no cyanosis or clubbing, extremities motor strength 5/5 Head/Neck/Chest: normocephalic Skin: LLE: 3cm laceration over LLE well healing. Surrounding area of erythema that is warm to touch. Bilateral 2+ lower extremity pitting edema. No tracking of the cellulitis and well demarcated. Neurologic: PERRL, EOMI, accommodation nl, no face palsy, no dysarthria normal touch/pain/proprioception, CN's II-XI intact bilaterally and awake; not confused Speech / Cognition: normal speech Motor/Sensory: + tremor (pill rolling tremor bilaterally); no pronator drift Coordination: normal [id number] test Psychiatric: Orientation: alert and oriented x 3 Apperance: + disheveled Affect: + flat affect Results & Data Laboratory Results Abnormal lab results 08/21/18 08/21/18 08/21/18 Range/Units 12:15 12:15 12:15 RBC 3.96 L (4.7-6.1) M/uL Hgb 12.1 L (14.0-18.0) g/dL Hct 37.2 L (42-52) % RDW Std Deviation 51.2 H (36.4-46.3) fL RDW Coeff of Shilpa 15.0 H (11.5-14.5) % Miller # (Auto) 1.30 H (0.11-0.59) K/uL INR 1.2 H (0.9-1.1) BUN 31 H (7-18) mg/dl BUN/Creatinine Ratio 23.8 H (10-20) Glucose 110 H (70-99) mg/dl Total Bilirubin 1.3 H (0.2-1) mg/dl AST 14 L (15-37) U/L ALT 8 L (12-78) U/L Alkaline Phosphatase 123 H (45-117) U/L NT-Pro-B Natriuret Pep 2334 H (0-1800) pg/ml Supervising Physician Co-Signing Physician Notes I personally examined the patient and verified all loera points of history and exam, discussed case, and agree with decision making with Dr Arechiga. leg redness. more hallucinations. more weakness. vitals noted nad fatigued appearing. LLE scratch w scabbing but surrounding erythema somewhat tender. somewhat slow to respond. mild leg cellulitis - 1st gen cephalosporin weakness/hallucinations - ?acute illness making him decompensate some from parkinsons vs baseline worsneing -- follow clinically, ask neurology to see. given that NSTEMI was very nonspecific sx and EKG currently w nonspecific T flattening inferior - highly doubt cardiac cause of weakness, but follow troponin mild dehydration - IVF, supportive care, follow. DVT proph - heparin SQ Resident Activity Tracking Resident Involvement: Resident Care Provided Care Provided: Adult Hospital Medicine (1) Diabetes Diabetes mellitus complication status: without complication Diabetes mellitus custodial insulin use: without intermediate frame tender use Diabetes mellitus type: type 2 Qualified Code(s): E11.9 - Type 2 diabetes mellitus without complications (2) Gout Gout etiology: unspecified cause Gout site: unspecified site (3) Cellulitis Laterality: left Site of cellulitis: extremity Site of cellulitis of extremity: lower extremity Qualified Code(s): L03.116 - Cellulitis of left lower limb (4) Hypertension Hypertension type: essential hypertension Qualified Code(s): I10 - Essential (primary) hypertension
[2018-08-21] MEDS ORDERED: CARBIDOPA/LEVODOPA 25/100MG TAB PO ONE (20:30)
[2018-08-21] MEDS ORDERED: SIMETHICONE 80 MG CHEW PO ONE (21:01)
[2018-08-21] MEDS: HEPARIN SOD 5,000 UNIT/0.5 ML VIAL SQ SCH (21:11)
[2018-08-21] MEDS ORDERED: ACETAMINOPHEN 325 MG TAB ONE (21:15)
--- NOTE | 2018-08-21 21:28 | Emergency Department Note ---
Entered by Magui Godinez acting as a scribe for Aliya Galdamez DO History of Present Illness General Chief complaint: Leg Injury/Pain Stated complaint: BOTH LEGS SWOLLEN,NOT FEELING RIGHT Time Seen by Provider: 08/21/18 11:35 Source: family Limitations: clinical acuity History of Present Illness Provider complaint: bilateral leg redness Onset (ago): day(s) (over the last several days) Location: lower extremity, left and right Maximum Pain Intensity: 4 Quality: + other (redness) Associated symptoms: + other (visual hallucinations, distended abdomen, diarrhea); no loss of appetite The patient is a 77 year old male who presents to the Emergency Room with complaints of bilateral leg redness over the last several days. His family states that the patient has Parkinson's Disease and states that the patient usually has issues with his right leg but states that the patient is now having problems with both of his legs. His family states that the patient has "not been himself" over the last 3 days and has had visual hallucinations. Per family, the patient has been eating normally and has had a good appetite but has had a d istended abdomen and diarrhea. His family states that the patient did not sleep last night. Per family, the patient intermittently uses CPAP at night. Per family, the patient has history of DVTs, a PE, a heart attack, and a twisted bowel. Limited HPI secondary to clinical condition. Home Medications Home Medications Medication Instructions Recorded Confirmed Type allopurinol 300 mg PO QAM 08/21/18 08/21/18 History aspirin 81 mg PO QAM 08/21/18 08/21/18 History atorvastatin 80 mg PO QAM 08/21/18 08/21/18 History bisacodyl [Dulcolax (bisacodyl)] 0 dose PO QPM 08/21/18 08/21/18 History carbidopa-levodopa 1 dose PO DIRECTED 08/21/18 08/21/18 History carbidopa-levodopa 1 tab PO HS 08/21/18 08/21/18 History cholecalciferol (vitamin D3) 1,000 unit PO QAM 08/21/18 08/21/18 History [Vitamin D3] clopidogrel 75 mg PO QAM 08/21/18 08/21/18 History cyanocobalamin (vitamin B-12) 2,000 mcg PO QAM 08/21/18 08/21/18 History [Vitamin B-12] gabapentin 300 mg PO QID 08/21/18 08/21/18 History lisinopril 5 mg PO QAM 08/21/18 08/21/18 History metformin 500 mg PO BID 08/21/18 08/21/18 History metoprolol succinate 25 mg PO QAM 08/21/18 08/21/18 History polyethylene glycol 3350 1 dose PO BID 08/21/18 08/21/18 History ranitidine HCl 150 mg PO BID 08/21/18 08/21/18 History sertraline 50 mg PO QAM 08/21/18 08/21/18 History Allergies Allergy/AdvReac Type Severity Reaction Status Date / Time tramadol AdvReac Severe Confusion Unverified 08/21/18 12:16 Past Med/Surg History Medical History Heart attack (Resolved) Falls (Acute) Anxiety (Chronic) Gout (Chronic) Peripheral neuropathy (Chronic) Cervical stenosis of spine (Resolved) History of rhabdomyolysis (Resolved) Aortic regurgitation Hypertension Parkinson's disease Personal history of DVT (deep vein thrombosis) Sleep apnea Type 2 diabetes mellitus Surgical History History of cataract surgery (Resolved) History of right knee joint replacement (Resolved) H/O hemicolectomy Family History Other Medical history non-contributory Social History Preferred Language: Welsh Communication Ability: Effective Psychiatry Adult Physician Required: No Beliefs That Will Affect Care: None marital status: / Current Living Situation: Family Feels Safe at Home: Yes Safety Concerns: Feels Safe At This Time Smoking Status: Former smoker Hx Alcohol Use: No (quit 20 yrs ago) Hx Substance Use: No Review of Systems Limited ROS secondary to clinical condition. Physical Exam Vital Signs Vital Signs - 24 hr 08/21/18 11:14 08/21/18 13:03 08/21/18 15:03 Temperature 36.4 C L Temperature Source Oral Sepsis Recent Fever Within 48 Hours No Sepsis New/Unexplained Change in Mental Status No Sepsis Action Taken by Nursing No Action Required Pulse Rate 85 Pulse Rate [Apical] 81 93 H Respiratory Rate 18 18 19 Respiratory Effort / Characteristics Non-Labored Respiratory Depth Normal Respiratory Pattern Regular Blood Pressure 110/67 Blood Pressure [Right Arm] 111/69 112/78 Blood Pressure Mean 81 Blood Pressure Mean [Right Arm] 83 89 Pulse Oximetry 94 94 94 Oxygen Delivery Method Room Air Room Air Room Air 08/21/18 16:35 08/21/18 17:00 08/21/18 18:00 Temperature Temperature Source Sepsis Recent Fever Within 48 Hours Sepsis New/Unexplained Change in Mental Status Sepsis Action Taken by Nursing Pulse Rate Pulse Rate [Apical] 86 81 81 Respiratory Rate 19 18 16 Respiratory Effort / Characteristics Non-Labored Non-Labored Non-Labored Respiratory Depth Normal Normal Normal Respiratory Pattern Regular Regular Regular Blood Pressure Blood Pressure [Right Arm] 129/70 132/74 129/67 Blood Pressure Mean Blood Pressure Mean [Right Arm] 89 93 87 Pulse Oximetry 95 93 93 Oxygen Delivery Method Room Air Room Air Room Air 08/21/18 19:25 Temperature Temperature Source Sepsis Recent Fever Within 48 Hours Sepsis New/Unexplained Change in Mental Status Sepsis Action Taken by Nursing Pulse Rate 78 Pulse Rate [Apical] Respiratory Rate 20 Respiratory Effort / Characteristics Respiratory Depth Respiratory Pattern Blood Pressure 131/72 Blood Pressure [Right Arm] Blood Pressure Mean Blood Pressure Mean [Right Arm] Pulse Oximetry 96 Oxygen Delivery Method Room Air GENERAL: alert, well appearing, well nourished, no distress, non-toxic EYE EXAM: normal conjunctiva, PERRL and EOM's grossly intact OROPHARYNX: no exudate, no erythema, lips, buccal mucosa, and tongue normal and mucous membranes are moist NECK: supple, no nuchal rigidity, no adenopathy, non-tender LUNGS: Clear to auscultation. Normal chest wall mechanics HEART: no murmurs, S1 normal and S2 normal ABDOMEN: abdomen soft, non-tender, normo-active bowel sounds, no masses, no rebound or guarding. BACK: Back is symmetrical on inspection and there is no deformity, no midline tenderness, no CVA tenderness. SKIN: no rashes and no bruising UPPER EXTREMITIES: upper extremities are grossly normal. FROM, nml pulses b/l. LOWER EXTREMITIES: Bilateral lower extremity edema. Subacute appearing laceration with evidence of healing to the left lower extremity in the area of the proximal fibula. Mild surrounding erythema. No active drainage or bleeding. NEURO EXAM: Normal sensorium, cranial nerves II-XII intact, normal speech, no weakness of arms, no weakness of legs. Pt oriented to person, place, difficulty with other details or medical history. Course 1141: The patient was evaluated in room C5, and a complete history and physical examination were performed. 1402: I checked on the patient. 1544: I updated the patient's family who verbalized agreement and understanding of the treatment plan. 1557: I discussed the patient's case with Dr. Melissa Granado who will evaluate the patient for further management. Consultations Consultation #1: Dr. Melissa Granado Time: 15:57 Administered Medications Heparin Sodium (Porcine) (Heparin Sodium (Porcine)) 5,000 units SQ Q12 CORI Stop: 09/20/18 20:59 Last Admin: 08/21/18 21:11 Dose: Not Given Documented by: [id number] Sodium Chloride (Nss) 500 mls @ 80 mls/hr IV .[id number] CORI Stop: 09/20/18 11:59 Last Admin: 08/21/18 20:37 Dose: 80 mls/hr Documented by: [id number] Infusion: 08/21/18 19:03 Dose: 0 mls/hr Documented by: [id number] Admin: 08/21/18 12:59 Dose: 80 mls/hr Documented by: [id number] Ioversol (Optiray 320 100ml) 94 ml IV ONCE PRN PRN Reason: Interaction Checking Stop: 08/25/18 14:22 Last Admin: 08/21/18 14:24 Dose: 94 ml Documented by: [id number] Discontinued Medications Carbidopa/Levodopa (Sinemet 25/100 Mg) 1 tab PO 2030 ONE Stop: 08/21/18 20:31 Last Admin: 08/21/18 21:10 Dose: 1 tab Documented by: [id number] Cefazolin Sodium (Ancef 1000mg) 1,000 mg in 7.5 mls @ 2.5 mls/min IV NOW STA Stop: 08/21/18 16:05 Last Admin: 08/21/18 16:29 Dose: 2.5 mls/min Documented by: [id number] Medical Decision Making Differential Diagnosis Differential diagnosis: Etiologies such as cellulitis, abscess, osteomyelitis, MRSA infection, DVT, necrotizing fasciitis, dermatitis, drug eruption, metabolic, infection, hypoglycemia, electrolyte abnormalities, cardiac sources, intracerebral event, toxicologic, neurologic as well as others were entertained. Medical Records Attestation: I reviewed the patient's medical records. Home Medications Current Medication List: was personally reviewed by me Laboratory Data Attestation: I reviewed the patient's lab results. Result diagrams: 08/21/18 12:15 08/21/18 12:15 Lab Results 08/21/18 08/21/18 08/21/18 Range/Units 12:15 12:15 12:15 WBC 5.61 (4.8-10.8) K/uL RBC 3.96 L (4.7-6.1) M/uL Hgb 12.1 L (14.0-18.0) g/dL Hct 37.2 L (42-52) % MCV 93.9 (80-100) fL MCH 30.6 (25-34) pg MCHC 32.5 (32-36) g/dL RDW Std Deviation 51.2 H (36.4-46.3) fL RDW Coeff of Shilpa 15.0 H (11.5-14.5) % Plt Count 196 (130-400) K/uL MPV 10.4 (7.4-10.4) fL Immature Gran % (Auto) 0.2 % Neut % (Auto) 51.4 % Lymph % (Auto) 23.9 % [place] % (Auto) 23.2 % Eos % (Auto) 1.1 % Baso % (Auto) 0.2 % Immature Gran # (Auto) 0.01 (0.00-0.02) K/uL Neut # (Auto) 2.89 (1.4-6.5) K/uL Lymph # (Auto) 1.34 (1.2-3.4) K/uL [place] # (Auto) 1.30 H (0.11-0.59) K/uL Eos # (Auto) 0.06 (0-0.5) K/uL Baso # (Auto) 0.01 (0-0.2) K/uL PT 11.9 (9.0-12.0) Seconds INR 1.2 H (0.9-1.1) Sodium (136-145) mmol/L Potassium (3.5-5.1) mmol/L Chloride (98-107) mmol/L Carbon Dioxide (21-32) mmol/L Anion Gap (3-11) BUN (7-18) mg/dl Creatinine (0.6-1.4) mg/dl Est Cr Clr Drug Dosing ml/min Est GFR ( Amer) Est GFR (Non-Af Amer) BUN/Creatinine Ratio (10-20) Glucose (70-99) mg/dl POC Glucose (70-99) POC Lactic Acid Axel (0.90-1.70) mmol/L Calcium (8.5-10.1) mg/dl Magnesium (1.8-2.4) mg/dl Total Bilirubin (0.2-1) mg/dl AST (15-37) U/L ALT (12-78) U/L Alkaline Phosphatase (45-117) U/L Troponin I (0-0.045) ng/ml NT-Pro-B Natriuret Pep (0-1800) pg/ml Total Protein (6.4-8.2) gm/dl Albumin (3.4-5.0) gm/dl Globulin (2.5-4.0) gm/dl Albumin/Globulin Ratio (0.9-2) Lipase (73-393) U/L Procalcitonin < 0.05 (0-0.5) ng/ml Urine Color Urine Appearance (Clear) Urine pH (4.5-7.5) Ur Specific [place] (1.000-1.030) Urine Protein (Negative) Urine Glucose (UA) (Negative) Urine Ketones (Negative) Urine Blood (Negative) Urine Nitrite (Negative) Urine Bilirubin (Negative) Urine Urobilinogen (Negative) Ur Leukocyte Esterase (Negative) 08/21/18 08/21/18 08/21/18 Range/Units 12:15 12:30 12:40 WBC (4.8-10.8) K/uL RBC (4.7-6.1) M/uL Hgb (14.0-18.0) g/dL Hct (42-52) % MCV (80-100) fL MCH (25-34) pg MCHC (32-36) g/dL RDW Std Deviation (36.4-46.3) fL RDW Coeff of Shilpa (11.5-14.5) % Plt Count (130-400) K/uL MPV (7.4-10.4) fL Immature Gran % (Auto) % Neut % (Auto) % Lymph % (Auto) % [place] % (Auto) % Eos % (Auto) % Baso % (Auto) % Immature Gran # (Auto) (0.00-0.02) K/uL Neut # (Auto) (1.4-6.5) K/uL Lymph # (Auto) (1.2-3.4) K/uL [place] # (Auto) (0.11-0.59) K/uL Eos # (Auto) (0-0.5) K/uL Baso # (Auto) (0-0.2) K/uL PT (9.0-12.0) Seconds INR (0.9-1.1) Sodium 136 (136-145) mmol/L Potassium 4.1 (3.5-5.1) mmol/L Chloride 105 (98-107) mmol/L Carbon Dioxide 24 (21-32) mmol/L Anion Gap 7.0 (3-11) BUN 31 H (7-18) mg/dl Creatinine 1.32 (0.6-1.4) mg/dl Est Cr Clr Drug Dosing 58.7 ml/min Est GFR ( Amer) 59.9 Est GFR (Non-Af Amer) 51.7 BUN/Creatinine Ratio 23.8 H (10-20) Glucose 110 H (70-99) mg/dl POC Glucose (70-99) POC Lactic Acid Axel 1.25 (0.90-1.70) mmol/L Calcium 8.7 (8.5-10.1) mg/dl Magnesium 1.8 (1.8-2.4) mg/dl Total Bilirubin 1.3 H (0.2-1) mg/dl AST 14 L (15-37) U/L ALT 8 L (12-78) U/L Alkaline Phosphatase 123 H (45-117) U/L Troponin I 0.017 (0-0.045) ng/ml NT-Pro-B Natriuret Pep 2334 H (0-1800) pg/ml Total Protein 7.7 (6.4-8.2) gm/dl Albumin 3.7 (3.4-5.0) gm/dl Globulin 4.0 (2.5-4.0) gm/dl Albumin/Globulin Ratio 0.9 (0.9-2) Lipase 76 (73-393) U/L Procalcitonin (0-0.5) ng/ml Urine Color Yellow Urine Appearance Clear (Clear) Urine pH 5.0 (4.5-7.5) Ur Specific [place] 1.017 (1.000-1.030) Urine Protein Negative (Negative) Urine Glucose (UA) Negative (Negative) Urine Ketones Negative (Negative) Urine Blood Negative (Negative) Urine Nitrite Negative (Negative) Urine Bilirubin Negative (Negative) Urine Urobilinogen Negative (Negative) Ur Leukocyte Esterase Negative (Negative) 08/21/18 Range/Units 20:06 WBC (4.8-10.8) K/uL RBC (4.7-6.1) M/uL Hgb (14.0-18.0) g/dL Hct (42-52) % MCV (80-100) fL MCH (25-34) pg MCHC (32-36) g/dL RDW Std Deviation (36.4-46.3) fL RDW Coeff of Shilpa (11.5-14.5) % Plt Count (130-400) K/uL MPV (7.4-10.4) fL Immature Gran % (Auto) % Neut % (Auto) % Lymph % (Auto) % [place] % (Auto) % Eos % (Auto) % Baso % (Auto) % Immature Gran # (Auto) (0.00-0.02) K/uL Neut # (Auto) (1.4-6.5) K/uL Lymph # (Auto) (1.2-3.4) K/uL [place] # (Auto) (0.11-0.59) K/uL Eos # (Auto) (0-0.5) K/uL Baso # (Auto) (0-0.2) K/uL PT (9.0-12.0) Seconds INR (0.9-1.1) Sodium (136-145) mmol/L Potassium (3.5-5.1) mmol/L Chloride (98-107) mmol/L Carbon Dioxide (21-32) mmol/L Anion Gap (3-11) BUN (7-18) mg/dl Creatinine (0.6-1.4) mg/dl Est Cr Clr Drug Dosing ml/min Est GFR ( Amer) Est GFR (Non-Af Amer) BUN/Creatinine Ratio (10-20) Glucose (70-99) mg/dl POC Glucose 119 H (70-99) POC Lactic Acid Axel (0.90-1.70) mmol/L Calcium (8.5-10.1) mg/dl Magnesium (1.8-2.4) mg/dl Total Bilirubin (0.2-1) mg/dl AST (15-37) U/L ALT (12-78) U/L Alkaline Phosphatase (45-117) U/L Troponin I (0-0.045) ng/ml NT-Pro-B Natriuret Pep (0-1800) pg/ml Total Protein (6.4-8.2) gm/dl Albumin (3.4-5.0) gm/dl Globulin (2.5-4.0) gm/dl Albumin/Globulin Ratio (0.9-2) Lipase (73-393) U/L Procalcitonin (0-0.5) ng/ml Urine Color Urine Appearance (Clear) Urine pH (4.5-7.5) Ur Specific [place] (1.000-1.030) Urine Protein (Negative) Urine Glucose (UA) (Negative) Urine Ketones (Negative) Urine Blood (Negative) Urine Nitrite (Negative) Urine Bilirubin (Negative) Urine Urobilinogen (Negative) Ur Leukocyte Esterase (Negative) Imaging Data Radiologist's Impression: Radiology results as stated below per my review and the radiologist's interpretation: BILATERAL LOWER EXTREMITY VENOUS DOPPLER HISTORY: Acute pain and swelling of the bilateral lower legs edema, erythema L>R COMPARISON STUDY: Duplex venous Doppler study 07/17/2016 FINDINGS: There is normal compressibility, flow, and augmentation within the bilateral lower extremity deep venous systems. Limited visualization of the calf vessels. IMPRESSION: No sonographic evidence of deep venous thrombosis within the right or left lower extremity. Electronically signed by: Eren Evans M.D. 08/21/2018 2:[address] SCAN OF THE BRAIN WITHOUT IV CONTRAST CLINICAL HISTORY: Change in mental status. COMPARISON STUDY: CT of the brain dated 04/22/2018. TECHNIQUE: Unenhanced axial CT scan of the brain is performed from the vertex to the skull base. A dose lowering technique was utilized adhering to the principles of ALARA. The patient was scanned twice due to significant motion artifact. FINDINGS: Brain parenchyma: There are age-related involutional changes noting mild subcortical and periventricular microangiopathic change. There is no hemorrhage, mass effect, or evidence of acute territorial ischemia by CT criteria. Montiel- white matter differentiation is preserved. No extra-axial fluid collection is seen. Ventricles, sulci, cisterns: Prominent secondary to involutional change. Intracranial vasculature: There is atherosclerotic calcification of the cavernous carotid and vertebral arteries. Calvarium: Unremarkable. Sinuses and mastoids: The visualized paranasal sinuses are clear. The mastoid air cells are well pneumatized. Orbits: The bony orbits are grossly intact. There are bilateral ocular lens implants. IMPRESSION: There is no hemorrhage, mass effect, or evidence of acute territorial ischemia by CT criteria noting a motion compromised examination. Electronically signed by: Darío Pryor M.D. 08/21/2018 2:[address] abd pelvis oral and IV con CLINICAL HISTORY: 77 years-old Male presenting with distention, tympany, generalized abdominal pain, hx surgery. TECHNIQUE: Multidetector CT of the abdomen and pelvis was performed after the administration of oral and intravenous contrast. IV contrast: 94 mL of Optiray 320. One or more dose lowering techniques were used consistent with the principles of ALARA (as low as reasonably achievable), including automatic exposure control, mA or kV adjustment to individual patient size, and/or use of iterative reconstruction. COMPARISON: 04/22/2018. CT DOSE (mGy.cm): The estimated cumulative dose is 2374.97 mGy.cm. FINDINGS: Laundry Aide topogram: Gaseous distention of bowel. The patient is edentulous. Positioning of the arms at the sides to degrades image quality limiting evaluation of the upper abdomen. Lung bases: Mild multichamber enlargement of the heart. Coronary artery and aortic valve calcification. No pericardial or pleural effusion. Calcified granuloma in the right lower lobe. Bandlike opacities in the lower lobes likely atelectasis, left greater than right. Respiratory motion artifact at the lung bases degrades evaluation. Liver: Congenital hypoplasia of the medial segments of the left hepatic lobe. No focal lesion. Patent hepatic vasculature. Biliary: No intrahepatic or extrahepatic biliary ductal dilatation. Normal gallbladder. Pancreas: Moderate parenchymal atrophy. Spleen: Punctate calcifications in the spleen suggest a history of granulomatous disease. Adrenal glands: Normal. Kidneys and ureters: Prominent simple appearing left renal cyst unchanged. Mild pelviectasis, left greater than right. Trace urothelial thickening may be present. No hydronephrosis. Bladder: Circumferential bladder wall thickening. Pelvic organs: Prostate enlargement likely secondary to benign prostatic hyperplasia. Bowel: Postsurgical changes of the sigmoid colon with a colocolonic anastomosis at the rectosigmoid junction, which is patent. Fluid noted in the colon suggesting a diarrheal state. Additional postsurgical changes of partial right hemicolectomy with a ileocolic anastomosis in the right upper quadrant. This also appears widely patent. No bowel obstruction. Oral contrast has not yet reached the colon. Extended segment of small bowel wall thickening in the distal small bowel. This segment of bowel has a wall thickness of 7 mm and is located in the right mid abdomen. This is approximately 15-30 cm upstream from the anastomosis. Peritoneal cavity: No free fluid or intraperitoneal gas. Lymph nodes: No enlarged lymph nodes in the abdomen or pelvis. Vasculature: Atherosclerosis of the normal caliber abdominal aorta. IVC patent. Abdominal wall: Postsurgical changes of the ventral midline abdomen. Bilateral varicoceles may be present. Musculoskeletal: Degenerative changes of the spine. IMPRESSION: 1. Fluid in the colon suggests a diarrheal state. Gaseous distended colon suggests either pseudoobstruction or ileus. 2. Postsurgical changes of the bowel including partial right hemicolectomy and presumed partial sigmoidectomy with patent ileocolic and colocolonic anastomoses. No bowel obstruction. 3. Wall thickening of a segment of distal small bowel. This could suggest infectious or inflammatory enteritis or post radiation change among other etiologies. 4. Chronic bladder outlet obstruction with resultant suspected reflux uropathy evidenced by urothelial thickening. This is in the setting of prostatomegaly. 5. Cardiomegaly. Electronically signed by: John Alejandre M.D. 08/21/2018 2:53 PM ECG Data Indication: altered mental status Rate (beats per minute): 82 Rhythm: sinus rhythm Findings: + other (poor quality tracing, leftward axis, normal QRS and QTC), + PAC, + PVC and + T-wave inversion (in lead III, V4, V5, V6); no ST elevation Comparison ECG Date: from (04/24/18) Change: the following changes noted (T-Wave inversions are new) Blood Pressure Blood Pressure Findings: Normal blood pressure MDM Narrative Pt presents today with family due to concern for increased confusion, diarrhea, and LE edema. VS stable, no evidence of bacteremia/sepsis. No evidence of acute abdominal pathology on CT. Possible viral GI illness causing diarrhea. LLE with possible evolving cellulitis. Given pt's age, pmhx, and current illness, this perhaps contributed to his increased confusion per family. I do not suggest necrotizing fasciitis. No evidence of DVT. Pt with known parkinson s disease, however no significant change in meds to otw explain altered mentation and hallucinations. Pt and family aware of all results and in agreement with plan. Impression & Plan Altered mental status, Parkinson's disease, Abdominal distension, Diarrhea, Cellulitis Discharge Plan Visit Data *Final* Discharge Date/Time: 08/21/18 19:25 Chief Complaint: Leg Injury/Pain Stated Complaint: BOTH LEGS SWOLLEN,NOT FEELING RIGHT ED Provider: Aliya Galdamez Discharge Problem: Altered mental status, Parkinson's disease, Abdominal distension, Diarrhea, Ce llulitis Patient Disposition: Admitted As Inpatient Discharge Instructions Interventions: ED Discharge Assessment Last Done: 08/21/18 19:25 Discharge Problem: Altered mental status Qualifiers: Altered mental status type: unspecified Qualified Code(s): R41.82 - Altered mental status, unspecified Diarrhea Qualifiers: Diarrhea type: unspecified type Qualified Code(s): R19.7 - Diarrhea, unspecified Cellulitis Qualifiers: Site of cellulitis: extremity Site of cellulitis of extremity: lower extremity Laterality: left Qualified Code(s): L03.116 - Cellulitis of left lower limb The scribe's documentation has been prepared under my direction and personally reviewed by me in its entirety. I confirm that the note above accurately reflects all work, treatment, procedures, and medical decision making performed by me.
[2018-08-21] MEDS: POTASSIUM CHLORIDE 10 MEQ in SODIUM CHLORIDE 0.45 % 1,000 ML IV SCH (22:31)
[2018-08-21] MEDS: CARBIDOPA/LEVODOPA 25/100MG EXT REL TAB PO SCH (23:23)
[2018-08-22] MEDS: SODIUM CHLORIDE 0.9% 500 ML IV SCH (04:20)
[2018-08-22 06:10] LABS: Basophils # (auto) 0.01 K/uL (0-0.2); Basophils % (auto) 0.2 %; Eosinophils # (auto) 0.12 K/uL (0-0.5); Eosinophils % (auto) 1.8 %; Hematocrit (blood only) 36.3 % (42-52); Immature Granulocytes # (auto) 0.01 K/uL (0.00-0.02); Immature Granulocytes % (auto) 0.2 %; Lymphocytes # (auto) 1.39 K/uL (1.2-3.4); Lymphocytes % (auto) 21.1 %; Mean Corpuscular Hgb Conc 33.1 g/dL (32-36); Mean Corpuscular Volume 93.8 fL (80-100); Mean Platelet Volume 10.4 fL (7.4-10.4); Monocytes # (auto) 1.53 K/uL (0.11-0.59); Monocytes % (auto) 23.2 %; Neutrophils # (auto) 3.54 K/uL (1.4-6.5); Neutrophils % (auto) 53.5 %; Platelet Count 212 K/uL (130-400); RDW Coefficient of Variation 15.1 % (11.5-14.5); RDW Standard Deviation 51.1 fL (36.4-46.3); Red Blood Count 3.87 M/uL (4.7-6.1)
[2018-08-22 06:30] LABS: BUN Creatinine Ratio 19.1 (10-20); Calcium 8.7 mg/dl (8.5-10.1); Creatinine Clr Calc Pharmacy 72.4 ml/min; Est GFR (African American) 77.2; Est GFR (Non-African American) 66.6; Potassium 3.8 mmol/L (3.5-5.1)
[2018-08-22] MEDS: CARBIDOPA/LEVODOPA 25/100MG TAB PO SCH ×4 (07:52→19:39)
[2018-08-22] MEDS: HEPARIN SOD 5,000 UNIT/0.5 ML VIAL SQ SCH (07:54)
--- NOTE | 2018-08-22 11:18 | Family Medicine Progress Note ---
Date of Service August 22, 2018 Assessment & Plan (1) Parkinson's disease: Mr. Montalvo is a 77-year-old male with a past medical history of Parkinson's disease, hypertension, hyperlipidemia, diabetes, STEMI in April 2018, and gout who presents with multiple complaints including hallucinations, difficulty walking, abdominal distention, and lower extremity cellulitis. - family is concerned about change in timing of sinemet dosage vs. worsening Parkinson's disease causing worsening gait and confusion/hallucinations - hallucinations/confusion seem to be improving - CT Head: no acute findings - Continue home Sinemet 100mg-25mg as per home dose (2 tabs at breakfast, lunch, and 3pm, 1 tab at 7pm and 1 ER tab at bedtime) - [facility] neurology consulted, thank you for recommendations -> follows with Cheyanne Forbes -> MRI brain ordered to r/o stroke causing isolated leg weakness -PT/OT consulted -> family stated firmly they did not want him discharged to SNF, but will agree to home PT if needed (2) Cellulitis: - Mild cellulitis with no signs or symptoms of systemic infection - Received Ancef in ED, and then converted to PO Keflex 500mg PO TID (3) Abdominal distension: - Continue home GI regiment including MiraLAX and Dulcolax - improving w/bowel regimen (4) History of coronary artery disease: - Continue home Aspirin, Clopidogrel, Atorvastatin, and Metoprolol (5) Diabetes: - Hold home Metformin - SSI with BSG AC/HS (6) Hypertension: - Continue home Lisinopril (7) Obstructive sleep apnea: - CPAP ordered (8) Anxiety: - Continue home Sertraline (9) Elevated troponin: - trop elevated at 0.6, pt with significant cardiac hx - asymptomatic, no chest pain. EKG difficult to interpret given artifact - continue to trend troponin q6h - possibly supply/demand mismatch in setting of dehydration and mild cellulitis - continue gentle IVF (10) Gout: - Continue home Allopurinol Code status: FULL DVT Prophylaxis: patient was receiving SQ heparin, however his family noted that he was bleeding from his injection sites, so we have discontinued this Disposition: anticipate d/c tomorrow Supervising Physician Co-Signing Physician Notes I personally examined the patient and verified all loera points of history and exam, discussed case, and agree with decision making with Dr Tarmohamed. Appears brighter, has not really been out of bed much to see how his right leg is working. Case discussed with neurology, input greatly appreciated. Vitals noted, in general he is awake and alert no distress. HEENT normocephalic atraumatic mucous membranes moist. Left lower extremity now has no erythema surrounding the scratch General declinedifficult to tell if it relates to his neurologic disease, or if it was physiologic stress from a mild infection and mild dehydration, but he seems to be brighter. See how he is doing getting up and around, and await if there are any findings on the MRI. Left lower extremity cellulitisthis was certainly mild at worst, but given his frailty it may have been enough to be causing a bit of a metabolically driven decline. Improved significantly. Finish a short course of antibiotics. Mild dehydrationseems to have improved. Leg weaknessappreciate neuro input. MRI pending. Otherwise as above Subjective Mr. Montalvo reports he feels fine today. He states that he had a bowel movement this morning, and his abdomen does not feel as distended. He has no other concerns today. He did ask to get up and leave, but his family is easily able to explain to him why he needs to stay. His family also reports that he is not having any more hallucinations but just "does not seem like he is with us." Physical Exam Vital Signs (Past 24 Hours): Last Vital Signs Temp 36.4 C L 08/22/18 07:37 Pulse 78 08/22/18 07:37 Resp 18 08/22/18 07:37 BP 130/69 08/22/18 07:37 Pulse Ox 96 08/22/18 07:37 Constitutional: + frail appearing Eyes: PERRL, conjunctivae normal, anicteric sclerae ENMT: external ear and nose normal, oropharynx normal Respiratory: normal respiratory effort, lungs clear to auscultation Cardiovascular: RRR, no murmur, no edema Gastrointestinal (Abdomen): Inspection/Auscultation: + abdomen distended Percussion/Palpation: abdomen soft; abdomen nontender Skin: linear skin break over left anterior calf. Minimal erythema surrounding this. Not warm to touch. Psychiatric: Orientation: alert and oriented x 3 Affect: + flat affect Resident Activity Tracking Resident Involvement: Resident Care Provided Care Provided: Adult Hospital Medicine (1) Diabetes Diabetes mellitus complication status: without complication Diabetes mellitus commissary officer insulin use: without commissary officer use Diabetes mellitus type: type 2 Qualified Code(s): E11.9 - Type 2 diabetes mellitus without complications (2) Gout Gout etiology: unspecified cause Gout site: unspecified site (3) Cellulitis Laterality: left Site of cellulitis: extremity Site of cellulitis of extremity: lower extremity Qualified Code(s): L03.116 - Cellulitis of left lower limb (4) Hypertension Hypertension type: essential hypertension Qualified Code(s): I10 - Essential (primary) hypertension
[2018-08-22] MEDS: POTASSIUM CHLORIDE 10 MEQ in SODIUM CHLORIDE 0.45 % 1,000 ML IV SCH (12:29)
--- NOTE | 2018-08-22 13:52 | Neurology Consultation ---
Date of Consultation August 22, 2018 Assessment & Plan (1) Parkinson's disease: 1. hallucinations- parkinson's and dementia can cause issues- Sinemet can also cause 2. comtan -may be offered in outpatient setting to help with uptake of Sinemet but this will need to be reassessed 3. continue Sinemet 25/100 mg 2 tablets 730/1130/1500, 1 tablet 1900, CR 25/100 mg 1 tablet 2300. 4. gabepentin 300 mg QID - should watch renal function - dose accordingly 5. trending troponin- ST changes on admission 6. antibiotic cefazolin started for LE cellulitis 7. PT/OT for discharge needs 8. abdominal distension - primary team for treatment 9. MRI brain without contrast r/o stroke Supervising Physician Co-Signing Physician Notes I have seen and discussed above patient with Dr Jah Henderson, neurology I seen Mr. Montalvo today, interviewed him, performing examination, reviewed the history with his son who was at the bedside and I reviewed the history and physical and general medical condition with Dr. Golden of the [facility] hospitalist service of also reviewed the outpatient notes of Dr. Cheyanne Sandhu This elderly man has had Parkinson's for 3-4 years probably longer and has had low-grade hallucinations and some confusion in the past but over the past several days he has had a real step-off in his motor control bilateral lower extremity weakness perhaps slightly worse on the right side, more agitation and confusion, hallucinations and was brought into the hospital, evaluated, and was treated with the presumptive diagnosis of the left lower extremity cellulitis is also been hydrated and today apparently looks a little better according to all concerned My exam shows a mild degree of generalized bradykinesia, positive Myerson sign and flattened facies, no significant tremor, mild rigidity with mixed cogwheeling and gegenhalten qualities in the possible area of very early cellulitis in the distal left lower extremity his orientation is reasonably good but not complete and this according to the chart is significantly better than last night The cause for acute deterioration and new onset hallucinations and Parkinson patients is often a toxic or metabolic encephalopathy and occasionally can be seen with embolic cerebral vascular event Is currently being treated for presumptive infection being rehydrated We are going to recommend an MRI scan noncontrast sure there is been no small infarction deep in the left hemisphere perhaps involving the thalamus with confusion and some weakness on the contralateral lower extremity but frankly I suspect we are not confined very much In the interim I am going to suggest no change in his Parkinson medication and should be tolerated in light of his relatively normal renal function Cheyanne Triplett PA-C and Dr. Finesse Francisco DO will be checking back with him tomorrow. Jah Henderson MD History of Present Illness Reason for Consultation: parkinson's disease Requesting Physician: Lon Golden DO Attending Physician: Lon Golden DO History of Present Illness Kendell is a 77 year old male with PMH Parkinson's disease, HTN, HLD, DM, and STEMI in April 2018, gout, that presents with hallucinations, difficulties walking, abdominal distention, and lower extremity cellulitis. He is seen in our office by Cheyanne Sandhu MD. He began to have difficulties walking mostly attributed to difficulty moving his left leg. He usually has difficulty with moving his right leg or symptoms related to Parkinson's on his right side. He has been having increased hallucinations over the last 48 hours as well. The only change made at any of his medications recently was the timing of his Sinemet. The medication was changed to be taken at 3 PM, from a previous time 4:30 PM. he also had a fall 2 weeks ago that resulted in a laceration of his left leg. he started having increased swelling and erythema of the left leg. He is also had some tenderness over the area of erythema as well. He has chronic bowel from previous abdominal surgeries and PD can cause slowing of the gut. On Sunday evening the patient was having some discomfort and the daughter gave him a dose of Gas-X. He takes MiraLAX twice daily in addition to Dulcolax in the evening. His abdomen was distended. He is lying in bed and his son is bedside who states he doesn't know much about his medications. He denies any fever, chills, chest pain, shortness of breath, N, V, vision changes, states he thinks he is doing good Allergies Allergy/AdvReac Type Severity Reaction Status Date / Time tramadol AdvReac Severe Confusion Unverified 08/21/18 12:16 Home Medications Home Medications Medication Instructions Recorded Confirmed Type allopurinol 300 mg PO QAM 08/21/18 08/21/18 History aspirin 81 mg PO QAM 08/21/18 08/21/18 History atorvastatin 80 mg PO QAM 08/21/18 08/21/18 History bisacodyl [Dulcolax (bisacodyl)] 0 dose PO QPM 08/21/18 08/21/18 History carbidopa-levodopa 1 dose PO DIRECTED 08/21/18 08/21/18 History carbidopa-levodopa 1 tab PO HS 08/21/18 08/21/18 History cholecalciferol (vitamin D3) 1,000 unit PO QAM 08/21/18 08/21/18 History [Vitamin D3] clopidogrel 75 mg PO QAM 08/21/18 08/21/18 History cyanocobalamin (vitamin B-12) 2,000 mcg PO QAM 08/21/18 08/21/18 History [Vitamin B-12] gabapentin 300 mg PO QID 08/21/18 08/21/18 History lisinopril 5 mg PO QAM 08/21/18 08/21/18 History metformin 500 mg PO BID 08/21/18 08/21/18 History metoprolol succinate 25 mg PO QAM 08/21/18 08/21/18 History polyethylene glycol 3350 1 dose PO BID 08/21/18 08/21/18 History ranitidine HCl 150 mg PO BID 08/21/18 08/21/18 History sertraline 50 mg PO QAM 08/21/18 08/21/18 History Patient History Medical History Heart attack (Resolved) Falls (Acute) Anxiety (Chronic) Gout (Chronic) Peripheral neuropathy (Chronic) Cervical stenosis of spine (Resolved) History of rhabdomyolysis (Resolved) Aortic regurgitation Hypertension Parkinson's disease Personal history of DVT (deep vein thrombosis) Sleep apnea Type 2 diabetes mellitus Surgical History History of cataract surgery (Resolved) History of right knee joint replacement (Resolved) H/O hemicolectomy Family History Other Medical history non-contributory Social History Communication Ability: Effective Beliefs That Will Affect Care: None marital status: / Current Living Situation: Family Feels Safe at Home: Yes Safety Concerns: Feels Safe At This Time Smoking Status: Former smoker Hx Alcohol Use: No (quit 20 yrs ago) Hx Substance Use: No Physical Exam Vital Signs (Past 24 Hours): Last Vital Signs Temp 36.4 C L 08/22/18 07:37 Pulse 78 08/22/18 07:37 Resp 18 08/22/18 07:37 BP 130/69 08/22/18 07:37 Pulse Ox 96 08/22/18 07:37 Physical Exam: Constitutional: appearance over nourished, healthy Ears, Nose, Mouth and Throat: mucous membranes moist, no injection and skin normal, eyes normal Cardiovascular: normal S-1 and S-2 and regular rate and rhythm Respiratory: course breath sounds Musculoskeletal: 1+ pitting edema, no tenderness with palpation Skin: LE venous stasis, scabbed linear area on left LE Eyes: extraocular muscles intact (EOMI) and pupils equal, round and reactive to light (PERRL), decreased blink, mask facies NEUROLOGIC EXAMINATION: Mental status: Alert and interactive Oriented president Nikki, 2019, states he is at home and states he does know his son in the room but then laughs Oriented to person Speech fluent with no evidence of aphasia Cranial Nerves smile eye brow raise symmetric Reflexes: Deep tendon reflexes were symmetrical decreased due to rigidity Sensory: decreased sensation to vibration from gautam to toes, GT proprioception intact Coordination: finger to nose no bipass, minimal resting tremor, cogwheeling bilaterally. Gait/Stance: Posture lying in bed Motor: Negative for pronator drift of out stretched arms with eyes closed. Strength: biceps triceps hand ordnance artificer helper left 5/5, right 4+/5, lifts both legs against gravity, plantar flex ext 5/5 Results & Data Laboratory Results Abnormal lab results 08/21/18 08/22/18 08/22/18 Range/Units 20:06 05:19 05:19 RBC 3.87 L (4.7-6.1) M/uL Hgb 12.0 L (14.0-18.0) g/dL Hct 36.3 L (42-52) % RDW Std Deviation 51.1 H (36.4-46.3) fL RDW Coeff of Shilpa 15.1 H (11.5-14.5) % [place] # (Auto) 1.53 H (0.11-0.59) K/uL Chloride 108 H (98-107) mmol/L BUN 20 H (7-18) mg/dl Glucose 114 H (70-99) mg/dl POC Glucose 119 H (70-99) Troponin I (0-0.045) ng/ml 08/22/18 08/22/18 08/22/18 Range/Units 07:09 11:22 11:27 RBC (4.7-6.1) M/uL Hgb (14.0-18.0) g/dL Hct (42-52) % RDW Std Deviation (36.4-46.3) fL RDW Coeff of Shilpa (11.5-14.5) % [place] # (Auto) (0.11-0.59) K/uL Chloride (98-107) mmol/L BUN (7-18) mg/dl Glucose (70-99) mg/dl POC Glucose 118 H 130 H (70-99) Troponin I 0.611 H* (0-0.045) ng/ml Diagnostic Findings CT abdomen/pelvis-Fluid in the colon suggests a diarrheal state. Gaseous distended colon suggests either pseudoobstruction or ileus. Postsurgical changes of the bowel including partial right hemicolectomy and presumed partial sigmoidectomy with patent ileocolic and colocolonic anastomoses. No bowel obstruction. Wall thickening of a segment of distal small bowel. This could suggest infectious or inflammatory enteritis or post radiation change among other etiologies. Chronic bladder outlet obstruction with resultant suspected reflux uropathy evidenced by urothelial thickening. This is in the setting of prostatomegaly. Cardiomegaly.ja venous doppler-No sonographic evidence of deep venous thrombosis within the right or left lower extremity. CT head- There is no hemorrhage, mass effect, or evidence of acute territorial ischemia by CT criteria noting a motion compromised examination.
[2018-08-22] MEDS: cephALEXin 500 MG CAP PO SCH ×2 (15:39→22:39)
[2018-08-22] MEDS ORDERED: CARBOHYDRATES FOR HYPOGLYCEMIA PO PRN (16:00)
[2018-08-22] MEDS ORDERED: GLUCOSE 40% GEL 15 GM TUBE PO PRN (16:00)
[2018-08-22] MEDS ORDERED: GLUCAGON FOR INJ 1 MG VIAL SQ PRN (16:00)
[2018-08-22] MEDS ORDERED: GLUCOSE 10 TABS/TUBE PO PRN (16:00)
[2018-08-22] MEDS ORDERED: DEXTROSE 50% 50 ML SYRINGE IV PRN (16:00)
[2018-08-22] MEDS: GABAPENTIN 300 MG CAP PO SCH ×2 (16:08→22:40)
[2018-08-22] MEDS: INSULIN ASPART 100 UNITS/ML 3 ML PEN SC SCH ×2 (17:46→22:22)
--- NOTE | 2018-08-22 21:55 | Magnetic Resonance Report ---
MR brain wo con HISTORY: 77 years-old Male include DWI r/o stroke altered mental status with strokelike symptoms and acute weakness with history of Parkinson's COMPARISON: CT head 08/21/2018 TECHNIQUE: Multiplanar multisequence MRI of the brain was obtained without the use of IV contrast. FINDINGS: Heavy Equipment Diesel Mechanic localizer images demonstrate no gross extracranial abnormality. There is no restricted diffusio n to suggest acute or subacute infarction. Midline structures including the corpus callosum, brainste m, optic chiasm, pituitary and pineal glands appear unremarkable on the sagittal T1 series which is m otion degraded. No cerebellar tonsillar herniation. Degenerative changes noted about the imaged cervi cesar spine. Age-related involutional changes with ex vacuo ventriculomegaly. Mild T2/FLAIR hyperintensities about the periventricular and subcortical white matter are suggestive of chronic microvascular ischemic ch anges. No acute intracranial hemorrhage, midline shift, abnormal extra-axial collections, hydrocephal us or intracranial mass identified. The major flow voids at the level the skull base appear to be pat ent. Prior bilateral cataract repair. Mastoid air cells appear clear. Rightward bowing and spurring o f the nasal septum with mild mucosal thickening of the ethmoid air cells and nasal turbinates. Remain ing paranasal sinuses appear clear. The skull and soft tissues are unremarkable. IMPRESSION: 1. No acute intracranial abnormality, specifically no acute or subacute infarct. 2. Age-related involutional changes with suggestion of mild chronic microvascular ischemic disease. The above report was generated using voice recognition software. It may contain grammatical, syntax o r spelling errors. Electronically signed by: Eren Evans M.D. 08/22/2018 9:54 PM
[2018-08-22] MEDS: ACETAMINOPHEN 325 MG TAB PO PRN (22:12)
[2018-08-22] MEDS: CARBIDOPA/LEVODOPA 25/100MG EXT REL TAB PO SCH (22:41)
[2018-08-23] MEDS: POTASSIUM CHLORIDE 10 MEQ in SODIUM CHLORIDE 0.45 % 1,000 ML IV SCH ×2 (03:00→18:21)
[2018-08-23 06:10] LABS: Basophils # (auto) 0.01 K/uL (0-0.2); Basophils % (auto) 0.1 %; Eosinophils # (auto) 0.01 K/uL (0-0.5); Eosinophils % (auto) 0.1 %; Hematocrit (blood only) 35.5 % (42-52); Hemoglobin 11.7 g/dL (14.0-18.0); Immature Granulocytes # (auto) 0.03 K/uL (0.00-0.02); Immature Granulocytes % (auto) 0.3 %; Lymphocytes % (auto) 10.5 %; Mean Corpuscular Volume 92.4 fL (80-100); Mean Platelet Volume 10.4 fL (7.4-10.4); Monocytes % (auto) 12.8 %; Neutrophils # (auto) 6.56 K/uL (1.4-6.5); Neutrophils % (auto) 76.2 %; Platelet Count 209 K/uL (130-400); RDW Standard Deviation 50.7 fL (36.4-46.3); Red Blood Count 3.84 M/uL (4.7-6.1); White Blood Count 8.61 K/uL (4.8-10.8)
[2018-08-23 06:42] LABS: BUN Creatinine Ratio 15.2 (10-20); Calcium 8.5 mg/dl (8.5-10.1); Creatinine Clr Calc Pharmacy 77.5 ml/min; Est GFR (African American) 83.8; Est GFR (Non-African American) 72.3
[2018-08-23 06:59] LABS: Troponin I 0.584 ng/ml (0-0.045)
[2018-08-23] MEDS ORDERED: PANTOprazole 40 MG in DEXTROSE 5% 100 ML IV SCH (07:00)
[2018-08-23] MEDS: CHOLECALCIFEROL 1,000 UNITS TAB PO SCH (07:33)
[2018-08-23] MEDS: GABAPENTIN 300 MG CAP PO SCH ×4 (07:33→20:34)
[2018-08-23] MEDS: SERTRALINE HCL 50 MG TABLET PO SCH (07:33)
[2018-08-23] MEDS: CYANOCOBALAMIN 500 MCG TABLET (VITAMIN B-12) PO SCH (07:34)
[2018-08-23] MEDS: LISINOPRIL 5 MG TAB PO SCH (07:34)
[2018-08-23] MEDS: ALLOPURINOL 300 MG TAB PO SCH (07:34)
[2018-08-23] MEDS: ATORVASTATIN 40 MG TAB PO SCH (07:34)
[2018-08-23] MEDS: CARBIDOPA/LEVODOPA 25/100MG TAB PO SCH ×4 (07:34→18:53)
[2018-08-23] MEDS: cephALEXin 500 MG CAP PO SCH ×3 (07:35→20:33)
[2018-08-23] MEDS: METOPROLOL SUCC 25MG EXT REL TAB PO SCH (07:35)
[2018-08-23] MEDS: INSULIN ASPART 100 UNITS/ML 3 ML PEN SC SCH ×3 (09:18→17:31)
--- NOTE | 2018-08-23 09:31 | Gastrointestinal Consultation ---
Date of Consultation August 23, 2018 Assessment & Plan (1) Coffee ground emesis: This is a minimal amt, with currently normal Hb and BUN. In the setting of elevated troponin, multiple comorbidities would watch and consider endoscopy only if melena, significant hematemesis or significant drop in Hb/Hct. Daughter agrees with this plan. Present on Admission?: No (2) Constipation: Will check KUB to r/o development of obstruction since arrival. IF no obstruction then would increase laxatives despite his diarrhea. Will check a C-diff. Addendum - after review of KUBwith : gastric distention. Plan: NPO, NG to low intermittent suction. Supervising Physician Co-Signing Physician Notes I saw and evaluated the patient. We are initially consulted for question of hematemesis. Review of the chart and the emesis shows that he has bile tinged emesis. We obtained an x-ray which seems to show market distention of the stomach. I suspect this is related to the patient's Parkinson's medications. Physical examination Patient not able to to give meaningful responses to verbal stimuli today Abdomen: Mild distention noted Impression: Patient with what appears to be an ileus as result of his antiparkinsonian medications. Given the KUB we would recommend an NG tube with low intermittent suction. If there is no improvement perhaps the patient would benefit from surgical consultation. I would also suggest that the patient begin a motility agent such as erythromycin. Given the patient's medical history I am not certain what options he will have for long-term therapy. History of Present Illness Reason for Consultation: hematemesis Requesting Physician: Dr. Wynn Attending Physician: Lon Golden DO History of Present Illness Mr. Kendell Montalvo is a 77 yr old male pt with a hx of Parkinson's, CAD NSTEMI in 2018 on ASA/clopidogrel, Sleep apnea, HTN, who was brought to [facility] for hallucina tions, abdominal distention ambulatory issues and lower extremity cellulitis. He is known to our group as he underwent colonoscopy in 2018 for constipation with findings of a sigmoid colon end to end anastomosis and internal/external hemorrhoids. GI is consulted for coffee grounds emesis which occurred once this morning. I was able to see the emesis. It consisted of approx 100cc of clear fluid with approx 5 tiny red specs. Hb on arrival on 08/21 was 12.1. This morning, prior to the coffee grounds emesis was 11.7. BUN this morning is 15. His troponins have been elevated: 0.611 on arrival and 0.5 this morning. On arrival, he underwent CT with oral and IV contrast with colonic gaseous distention and wall thickening of the distal small bowel. Regarding his chronic constipation, his normal regime is Miralax BID and dulcolax one daily. However, he has been having diarrhea 1-2 times/day for approx a week and these laxatives were held. His daughter Victoria was here during my interview and she stated that the pt's abdomen became distended on Sunday and has worsened despite the diarrhea . Allergies Allergy/AdvReac Type Severity Reaction Status Date / Time tramadol AdvReac Severe Confusion Unverified 08/21/18 12:16 Home Medications Home Medications Medication Instructions Recorded Confirmed Type allopurinol 300 mg PO QAM 08/21/18 08/21/18 History aspirin 81 mg PO QAM 08/21/18 08/21/18 History atorvastatin 80 mg PO QAM 08/21/18 08/21/18 History bisacodyl [Dulcolax (bisacodyl)] 0 dose PO QPM 08/21/18 08/21/18 History carbidopa-levodopa 1 dose PO DIRECTED 08/21/18 08/21/18 History carbidopa-levodopa 1 tab PO HS 08/21/18 08/21/18 History cholecalciferol (vitamin D3) 1,000 unit PO QAM 08/21/18 08/21/18 History [Vitamin D3] clopidogrel 75 mg PO QAM 08/21/18 08/21/18 History cyanocobalamin (vitamin B-12) 2,000 mcg PO QAM 08/21/18 08/21/18 History [Vitamin B-12] gabapentin 300 mg PO QID 08/21/18 08/21/18 History lisinopril 5 mg PO QAM 08/21/18 08/21/18 History metformin 500 mg PO BID 08/21/18 08/21/18 History metoprolol succinate 25 mg PO QAM 08/21/18 08/21/18 History polyethylene glycol 3350 1 dose PO BID 08/21/18 08/21/18 History ranitidine HCl 150 mg PO BID 04/03/19 04/03/19 History sertraline 50 mg PO QAM 08/21/18 08/21/18 History Patient History Medical History Heart attack (Resolved) Falls (Acute) Anxiety (Chronic) Gout (Chronic) Peripheral neuropathy (Chronic) Cervical stenosis of spine (Resolved) History of rhabdomyolysis (Resolved) Aortic regurgitation Hypertension Parkinson's disease Personal history of DVT (deep vein thrombosis) Sleep apnea Type 2 diabetes mellitus Surgical History History of cataract surgery (Resolved) History of right knee joint replacement (Resolved) H/O hemicolectomy Family History Other Medical history non-contributory Social History Communication Ability: Effective Beliefs That Will Affect Care: None marital status: / Current Living Situation: Family Feels Safe at Home: Yes Safety Concerns: Feels Safe At This Time Smoking Status: Former smoker Hx Alcohol Use: No (quit 20 yrs ago) Hx Substance Use: No Review of Systems Gen: +weakness, no fevers, no weight loss; decreased appetite for 3-4 days; + ambulatory issues related to Parkinson's Eyes: no vision changes, no eye redness or pain Respiratory: No SOB, no cough Cardiovascular: No irregular heartbeats or chest pain Abdomen: + abdominal distention; most recent BM 3 days ago. No c/o abdominal pain but daughter tells me the abdomen is distended compared to typical Ext: mild lower leg bilat edema Skin: lower leg scrapes, with minimal surrounding redness on the left lower leg wound - improved healing since hospitalization Hem: No excessive bruising/bleeding Physical Exam Vital Signs (Past 24 Hours): Last Vital Signs Temp 36.8 C 08/23/18 07:16 Pulse 92 H 08/23/18 07:16 Resp 20 08/23/18 07:16 BP 135/62 08/23/18 07:16 Pulse Ox 94 08/23/18 07:16 Constitutional: + overweight chronically ill appearing Pt not communicating during the interview. Laying down in bed. Some tremor of the hands/repetitive motion. Responds to verbal and tactile but does not talk. Does not follow commands. History obtained from his daughter. Eyes: PERRL, conjunctivae normal, anicteric sclerae ENMT: external ear and nose normal, oropharynx normal Neck: trachea midline, no thyromegaly Respiratory: normal respiratory effort, lungs clear to auscultation Cardiovascular: RRR, no murmur, no edema Gastrointestinal (Abdomen): Inspection/Auscultation: + abdomen distended Multiple scars from prior surgeries . Moderately firm but not rigid No evidence of tenderness on palpation. BS normal. Skin: no rashes, warm and dry Neurologic: + confused Motor/Sensory: + tremor Cranial Nerves: PERRL Psychiatric: Eye Contact: + poor eye contact Non verbal No evidence of agitation or discomfort Results & Data Diagnostic Findings CT abd/pelvis with IV & oral contrast 08/21/18: 1. Fluid in the colon suggests a diarrheal state. Gaseous distended colon suggests either pseudoobstruction or ileus. 2. Postsurgical changes of the bowel including partial right hemicolectomy and presumed partial sigmoidectomy with patent ileocolic and colocolonic anastomoses. No bowel obstruction. 3. Wall thickening of a segment of distal small bowel. This could suggest infectious or inflammatory enteritis or post radiation change among other etiologies. 4. Chronic bladder outlet obstruction with resultant suspected reflux uropathy evidenced by urothelial thickening. This is in the setting of prostatomegaly. 5. Cardiomegaly.
--- NOTE | 2018-08-23 10:07 | Family Medicine Progress Note ---
Date of Service August 23, 2018 Assessment & Plan (1) Parkinson's disease: Mr. Montalvo is a 77-year-old male with a past medical history of Parkinson's disease, hypertension, hyperlipidemia, diabetes, STEMI in April 2018, and gout who presents with multiple complaints including hallucinations, difficulty walking, abdominal distention, and lower extremity cellulitis. - family is concerned about change in timing of sinemet dosage vs. worsening Parkinson's disease causing worsening gait and confusion/hallucinations - hallucinations/confusion seem to be improving - CT Head and MRI brain: no acute findings - Continue home Sinemet 100mg-25mg as per home dose (2 tabs at breakfast, lunch, and 3pm, 1 tab at 7pm and 1 ER tab at bedtime) - [facility] neurology consulted, thank you for recommendations -> follows with Cheyanne Forbes -> can discuss medication regimen changes during f/u in clinic -PT/OT consulted -> family stated firmly they did not want him discharged to SNF, but will agree to home PT if needed (2) Coffee ground emesis: -pt had 100cc of coffee ground emesis this AM, in addition to worsening abdominal distention -Hgb stable, vomiting has ceased -aspirin and plavix held -40mg IV protonix BID -GI consulted ->monitor, if his symptoms worsen, consider EGD (3) Cellulitis: - Mild cellulitis with no signs or symptoms of systemic infection - Received Ancef in ED, and then converted to PO Keflex 500mg PO TID (on day 3 of abx) (4) Abdominal distension: - home regimen included MiraLAX and Dulcolax - acutely worsened today - GI consulted -> KUB shows progressive severe gaseous distention of the stomach -> patient made NPO and NG tube placed to decompress stomach -continue gentle IVF (5) History of coronary artery disease: - Continue home Atorvastatin, and Metoprolol - holding home aspirin and plavix (6) Diabetes: - Hold home Metformin - SSI with BSG AC/HS (7) Hypertension: - Continue home Lisinopril (8) Obstructive sleep apnea: - patient's family state they will bring his CPAP in for him this evening (9) Anxiety: - Continue home Sertraline (10) Elevated troponin: - trop elevated at 0.6, pt with significant cardiac hx - asymptomatic, no chest pain. EKG difficult to interpret given artifact - likely supply/demand mismatch in setting of dehydration, mild cellulitis and upper GI bleed/ileus - ECHO ordered to further evaluate -->late addendum -ongoing rise in troponin suggestive of myocardial demand ischemia. Suspect patient harbors significant underlying coronary disease, and the metabolic stress of his overall situation is likely leading to the troponin rise as a demand ischemia problem (11) Peripheral neuropathy: -continue home gabapentin (12) Gout: - Continue home Allopurinol Code status: FULL DVT Prophylaxis: patient was receiving SQ heparin, however his family noted that he was bleeding from his injection sites and now has concerns for GI bleed, so we have discontinued this Disposition: remains on med/surg Supervising Physician Co-Signing Physician Notes I personally examined the patient and verified all loera points of history and exam, discussed case, and agree with decision making with Dr Mckeon. Abdominal distention now, scant amount of coffee-ground emesis. GI input noted and appreciated. Vitals noted, in general he is in no distress but does appear more fatigued. His abdomen is moderately distended certainly more than yesterday, not really very tender no guarding/rebound/rigidity. Neuro shows no new focal deficits. Cellulitisimproved Mild dehydrationimproved, continue IV fluids given that his gastric distention is now precluding p.o. intake. Parkinson'sit appears that the physiologic/metabolic stress from the cellulitis and mild dehydration made his Parkinson symptoms worse. Appreciate neurology input. Gastric distention/coffee-ground emesisacid suppression, NG tube for dec ompression, serial x-rays, supportive care. otherwise as above Subjective Mr. Montalvo was fast asleep when I went in to examine him today. He appeared uncomfortable whilst asleep. Per nursing, he had an episode of coffee ground emesis x100 mL this AM. He had another episode afterwards, which was only a small amount, however this looked like it was slightly more red. When discussing with his daughter, this has not happened before, although she states he has a significant GI history with multiple abdominal surgeries. Constitutional: no fever and no chills Gastrointestinal: + abdominal pain, + coffee ground emesis and + change in bowel habits Physical Exam Vital Signs (Past 24 Hours): Last Vital Signs Temp 36.8 C 08/23/18 07:16 Pulse 92 H 08/23/18 07:16 Resp 20 04/05/19 07:16 BP 135/62 08/23/18 07:16 Pulse Ox 94 08/23/18 07:16 Constitutional: WD/WN, vitals as above + frail appearing appears uncomfortable Respiratory: normal respiratory effort, lungs clear to auscultation Cardiovascular: RRR, no murmur, no edema Gastrointestinal (Abdomen): Inspection/Auscultation: + abdomen distended and + hypoactive bowel sounds Percussion/Palpation: + abdomen firm; no guarding and abdomen not rigid Skin: linear lesion along anterior left calf, surrounding skin slightly erythematous. Not warm to touch Results & Data Laboratory Results Laboratory Results - last 24 hr 08/22/18 08/22/18 08/22/18 11:22 11:27 16:57 WBC RBC Hgb Hct MCV MCH MCHC RDW Std Deviation RDW Coeff of Shilpa Plt Count MPV Immature Gran % (Auto) Neut % (Auto) Lymph % (Auto) Carlton % (Auto) Eos % (Auto) Baso % (Auto) Immature Gran # (Auto) Neut # (Auto) Lymph # (Auto) Carlton # (Auto) Eos # (Auto) Baso # (Auto) Sodium Potassium Chloride Carbon Dioxide Anion Gap BUN Creatinine Est Cr Clr Drug Dosing Est GFR ( Amer) Est GFR (Non-Af Amer) BUN/Creatinine Ratio Glucose POC Glucose 130 H 123 H Calcium Troponin I 0.611 H* 08/22/18 08/22/18 08/22/18 17:32 20:22 23:21 WBC RBC Hgb Hct MCV MCH MCHC RDW Std Deviation RDW Coeff of Shilpa Plt Count MPV Immature Gran % (Auto) Neut % (Auto) Lymph % (Auto) Carlton % (Auto) Eos % (Auto) Baso % (Auto) Immature Gran # (Auto) Neut # (Auto) Lymph # (Auto) Carlton # (Auto) Eos # (Auto) Baso # (Auto) Sodium Potassium Chloride Carbon Dioxide Anion Gap BUN Creatinine Est Cr Clr Drug Dosing Est GFR ( Amer) Est GFR (Non-Af Amer) BUN/Creatinine Ratio Glucose POC Glucose 137 H Calcium Troponin I 0.475 H* 0.374 H* 08/23/18 08/23/18 08/23/18 05:25 05:25 07:31 WBC 8.61 RBC 3.84 L Hgb 11.7 L Hct 35.5 L MCV 92.4 MCH 30.5 MCHC 33.0 RDW Std Deviation 50.7 H RDW Coeff of Shilpa 15.0 H Plt Count 209 MPV 10.4 Immature Gran % (Auto) 0.3 Neut % (Auto) 76.2 Lymph % (Auto) 10.5 Carlton % (Auto) 12.8 Eos % (Auto) 0.1 Baso % (Auto) 0.1 Immature Gran # (Auto) 0.03 H Neut # (Auto) 6.56 H Lymph # (Auto) 0.90 L Carlton # (Auto) 1.10 H Eos # (Auto) 0.01 Baso # (Auto) 0.01 Sodium 137 Potassium 4.0 Chloride 106 Carbon Dioxide 25 Anion Gap 6.0 BUN 15 Creatinine 1.00 Est Cr Clr Drug Dosing 77.5 Est GFR ( Amer) 83.8 Est GFR (Non-Af Amer) 72.3 BUN/Creatinine Ratio 15.2 Glucose 124 H POC Glucose 131 H Calcium 8.5 Troponin I 0.584 H* Medications Administered Current Inpatient Medications Acetaminophen (Tylenol) 650 mg PO Q4H PRN PRN Reason: Pain Stop: 09/20/18 20:59 Last Admin: 08/22/18 22:12 Dose: 650 mg Documented by: Allopurinol (Zyloprim) [address] [facility] Stop: 09/22/18 08:59 Last Admin: 08/23/18 07:34 Dose: 300 mg Documented by: Aspirin (Ecotrin Ectab) [address] [facility] Stop: 09/22/18 08:59 Atorvastatin Calcium (Lipitor) [address] [facility] Stop: 09/22/18 08:59 Last Admin: 08/23/18 07:34 Dose: 80 mg Documented by: Carbidopa/Levodopa (Sinemet 25/100 Mg) 2 tab PO 0730,1130,1500 [facility] Stop: 09/21/18 07:29 Last Admin: 08/23/18 07:34 Dose: 2 tab Documented by: Carbidopa/Levodopa (Sinemet 25/100 Mg) 1 tab PO DAILY@1900 [facility] Stop: 09/21/18 18:59 Last Admin: 08/22/18 19:39 Dose: 1 tab Documented by: Carbidopa/Levodopa (Sinement Cr 25/100mg) 1 tab PO DAILY@2300 [facility] Stop: 09/20/18 22:59 Last Admin: 08/22/18 22:41 Dose: 1 tab Documented by: Cephalexin HCl (Keflex) 500 mg PO TID [facility] Stop: 09/01/18 14:24 Last Admin: 08/23/18 07:35 Dose: 500 mg Documented by: Clopidogrel Bisulfate (Plavix) 75 mg PO QAM [facility] Stop: 09/22/18 08:59 Cyanocobalamin (Vitamin B-12) 2,000 mcg PO QAM [facility] Stop: 09/22/18 08:59 Last Admin: 08/23/18 07:34 Dose: 2,000 mcg Documented by: Dextrose (Dextrose 50%) 25 - 50 ml IV UD PRN; Protocol PRN Reason: Hypoglycemia Protocol Stop: 09/21/18 15:59 Gabapentin (Neurontin) 300 mg PO QID [facility] Stop: 09/21/18 16:59 Last Admin: 08/23/18 07:33 Dose: 300 mg Documented by: Glucagon (Glucagen) 1 mg SQ UD PRN; Protocol PRN Reason: Hypoglycemia Protocol Stop: 09/21/18 15:59 Glucose (Glucose 40%) 15 - 30 gm PO UD PRN; Protocol PRN Reason: Hypoglycemia Protocol Stop: 09/21/18 15:59 Glucose (Dex4 Glucose) 4 - 8 tabs PO UD PRN; Protocol PRN Reason: Hypoglycemia Protocol Stop: 09/21/18 15:59 Potassium Chloride 10 meq/ (Sodium Chloride) 1,005 mls @ 65 mls/hr IV .[id number] [facility] Stop: 09/20/18 19:59 Last Admin: 08/23/18 03:00 Dose: 65 mls/hr Documented by: Pantoprazole Sodium 40 mg/ (Syringe) 10 mls @ 5 mls/min IV BID [facility] Stop: 08/27/18 09:01 Insulin Aspart (Novolog Flexpen) 0 units SC ACHS [facility] Stop: 09/21/18 16:29 Last Admin: 08/23/18 09:18 Dose: Not Given Documented by: Ioversol (Optiray 320 100ml) 94 ml IV ONCE PRN PRN Reason: Interaction Checking Stop: 08/25/18 14:22 Last Admin: 08/21/18 14:24 Dose: 94 ml Documented by: Lisinopril (Zestril) [address] [facility] Stop: 09/22/18 08:59 Last Admin: 08/23/18 07:34 Dose: 5 mg Documented by: Metoprolol Succinate (Toprol Xl) 25 mg PO QAM [facility] Stop: 09/22/18 08:59 Last Admin: 08/23/18 07:35 Dose: 25 mg Documented by: Miscellaneous (Carbohydrates For Hypoglycemia) 15 - 30 gm PO UD PRN PRN Reason: Hypoglycemia Treatment Stop: 09/21/18 15:59 Ranitidine HCl (Zantac) 150 mg PO BID [facility] Stop: 09/21/18 20:59 Last Admin: 08/23/18 07:32 Dose: 150 mg Documented by: Sertraline HCl (Zoloft) [address] [facility] Stop: 09/22/18 08:59 Last Admin: 08/23/18 07:33 Dose: 50 mg Documented by: Vitamin D (Vitamin D3) 1,[address] [facility] Stop: 09/22/18 08:59 Last Admin: 08/23/18 07:33 Dose: 1,000 units Documented by: Resident Activity Tracking Resident Involvement: Resident Care Provided Care Provided: Adult Hospital Medicine (1) Diabetes Diabetes mellitus complication status: without complication Diabetes mellitus buttermaker continuous churn insulin use: without half-way use Diabetes mellitus type: type 2 Qualified Code(s): E11.9 - Type 2 diabetes mellitus without complications (2) Gout Gout etiology: unspecified cause Gout site: unspecified site (3) Cellulitis Laterality: left Site of cellulitis: extremity Site of cellulitis of extremity: lower extremity Qualified Code(s): L03.116 - Cellulitis of left lower limb (4) Hypertension Hypertension type: essential hypertension Qualified Code(s): I10 - Essential (primary) hypertension
--- NOTE | 2018-08-23 12:17 | XRay Report ---
KUB HISTORY: abd distention, r/o obstruction and colon distenti COMPARISON: Abdomen and pelvis CT 08/21/2018. KUB 11/13/2017. FINDINGS: Multiple distended gas-filled loops of large and small bowel are again noted. The stomach i s also gas filled and severely distended. The colon within the left lower quadrant measures up to 11. 7 cm in diameter. The colonic distention is similar to the prior study. No renal calculi. No uretera l calculi. No pneumoperitoneum or pneumatosis. IMPRESSION: No significant change in the distended gas-filled loops of large and small bowel. There is also progr essive severe gaseous distention of the stomach. Consider decompression with nasogastric tube. Electronically signed by: Claude Smith M.D. 08/23/2018 12:16 PM
--- NOTE | 2018-08-23 14:16 | Neurology Progress Note ---
Date of Service August 23, 2018 Assessment & Plan (1) Parkinson's disease: 1. hallucinations- parkinson's and dementia can cause issues- Sinemet can also cause 2. comtan -may be offered in outpatient setting to help with uptake of Sinemet but this will need to be reassessed 3. continue Sinemet 25/100 mg 2 tablets 730/1130/1500, 1 tablet 1900, CR 25/100 mg 1 tablet 2300. on hold now due to emesis 4. gabepentin 300 mg QID - should watch renal function - dose accordingly 5. trending troponin- ST changes on admission 6. antibiotic cefazolin started for LE cellulitis 7. PT/OT for discharge needs 8. abdominal distension - primary team for treatment 9. MRI brain without contrast -no acute or subacute infarct will sign off for now will be available as needed. Supervising Physician Co-Signing Physician Notes I have seen and discussed above patient with Dr Finesse Francisco. Patient was seen and examined. MRI brain reviewed. 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 No acute stroke. Recommend to continue home Sinemet dose via NG Tube. Can discuss medication options as outpatient for visual hallucinations such as Pimavanserin. Jesse Rdz is a 77 year old male with PMH Parkinson's disease, HTN, HLD, DM, and STEMI in April 2018, gout, that presents with hallucinations, difficulties w alking, abdominal distention, and lower extremity cellulitis. He is seen in our office by Cheyanne Sandhu MD. He began to have difficulties walking mostly attributed to difficulty moving his left leg. He usually has difficulty with moving his right leg or symptoms related to Parkinson's on his right side. He has been having increased hallucinations over the last 48 hours as well. The only change made at any of his medications recently was the timing of his Sinemet. The medication was changed to be taken at 3 PM, from a previous time 4:30 PM. he also had a fall 2 weeks ago that resulted in a laceration of his left leg. he started having increased swelling and erythema of the left leg. He is also had some tenderness over the area of erythema as well. He has chronic bowel from previous abdominal surgeries and PD can cause slowing of the gut. On Sunday evening the patient was having some discomfort and the daughter gave him a dose of Gas-X. He takes MiraLAX twice daily in addition to Dulcolax in the evening. His abdomen was distended. He is lying in bed and his son is bedside who states he had a ruff night. He had some coffee ground emesis. Physical Exam Vital Signs (Past 24 Hours): Last Vital Signs Temp 36.8 C 08/23/18 07:16 Pulse 92 H 08/23/18 07:16 Resp 20 08/23/18 07:16 BP 135/62 08/23/18 07:16 Pulse Ox 94 08/23/18 07:16 Gen: sleeping lungs course breath sounds CV RRR NGT in place on suction Results & Data Laboratory Results Abnormal lab results 08/22/18 08/22/18 08/22/18 Range/Units 16:57 17:32 20:22 RBC (4.7-6.1) M/uL Hgb (14.0-18.0) g/dL Hct (42-52) % RDW Std Deviation (36.4-46.3) fL RDW Coeff of Shilpa (11.5-14.5) % Immature Gran # (Auto) (0.00-0.02) K/uL Neut # (Auto) (1.4-6.5) K/uL Lymph # (Auto) (1.2-3.4) K/uL [place] # (Auto) (0.11-0.59) K/uL Glucose (70-99) mg/dl POC Glucose 123 H 137 H (70-99) Troponin I 0.475 H* (0-0.045) ng/ml 08/22/18 08/23/18 08/23/18 Range/Units 23:21 05:25 05:25 RBC 3.84 L (4.7-6.1) M/uL Hgb 11.7 L (14.0-18.0) g/dL Hct 35.5 L (42-52) % RDW Std Deviation 50.7 H (36.4-46.3) fL RDW Coeff of Shilpa 15.0 H (11.5-14.5) % Immature Gran # (Auto) 0.03 H (0.00-0.02) K/uL Neut # (Auto) 6.56 H (1.4-6.5) K/uL Lymph # (Auto) 0.90 L (1.2-3.4) K/uL [place] # (Auto) 1.10 H (0.11-0.59) K/uL Glucose 124 H (70-99) mg/dl POC Glucose (70-99) Troponin I 0.374 H* 0.584 H* (0-0.045) ng/ml 08/23/18 08/23/18 Range/Units 07:31 11:31 RBC (4.7-6.1) M/uL Hgb (14.0-18.0) g/dL Hct (42-52) % RDW Std Deviation (36.4-46.3) fL RDW Coeff of Shilpa (11.5-14.5) % Immature Gran # (Auto) (0.00-0.02) K/uL Neut # (Auto) (1.4-6.5) K/uL Lymph # (Auto) (1.2-3.4) K/uL [place] # (Auto) (0.11-0.59) K/uL Glucose (70-99) mg/dl POC Glucose 131 H 122 H (70-99) Troponin I (0-0.045) ng/ml Diagnostic Findings MRI brain-No acute intracranial abnormality, specifically no acute or subacute infarct. Age-related involutional changes with suggestion of mild chronic microvascular ischemic disease. KUB-No significant change in the distended gas-filled loops of large and small bowel. There is also progressive severe gaseous distention of the stomach. Consider decompression with nasogastric tube.
--- NOTE | 2018-08-23 15:20 | XRay Report ---
XR chest 1V portable HISTORY: 77 years-old Male to confirm placement of NG status post placement of enteric tube. COMPARISON: KUB radiograph of same day, chest CT 04/22/2018 TECHNIQUE: Portable AP view of the chest FINDINGS: Cardiac silhouette is enlarged, unchanged. Right lung apex is obscured secondary to the patient's chi n. No pneumothorax, large pleural effusion or overt pulmonary edema. Suggestion of mild pulmonary vas cular congestion. Mild left hemidiaphragm elevation with minimal subsegmental bibasilar densities sug gestive of atelectasis. Degenerative changes of the shoulders and spine. Gaseous distention of the co fariba. Enteric tube is noted with distal tip coursing below the diaphragm within the upper abdomen, lik luba within the distal gastric body. IMPRESSION: 1. Cardiomegaly with mild pulmonary vascular congestion. 2. Bibasilar opacities suggest atelectasis. 3. Enteric tube distal tip is noted overlying the central abdomen, likely within the region of the di stal gastric body. The above report was generated using voice recognition software. It may contain grammatical, syntax o r spelling errors. Electronically signed by: Eren Evans M.D. 08/23/2018 3:19 PM
[2018-08-23] MEDS ORDERED: ERYTHROMYCIN 250 MG in SODIUM CHLORIDE 0.9% 250 ML IV SCH (16:15)
[2018-08-23] MEDS ORDERED: ERYTHROMYCIN DELAYED RELEASE 250 MG CAP PO SCH (17:30)
[2018-08-23] MEDS: ERYTHROMYCIN ETHYLSUCC SUSP 200 MG/5 ML 100 ML BTL PO SCH (20:32)
[2018-08-23] MEDS: PANTOprazole 40 MG in SYRINGE 0 ML IV SCH (20:41)
[2018-08-23] MEDS ORDERED: Nursing to Pharmacy Communication ONE (20:53)
[2018-08-24] MEDS: CARBIDOPA/LEVODOPA 25/100MG EXT REL TAB PO SCH (00:04)
[2018-08-24] MEDS: INSULIN ASPART 100 UNITS/ML 3 ML PEN SC SCH ×4 (00:07→18:29)
[2018-08-24] MEDS: ERYTHROMYCIN ETHYLSUCC SUSP 200 MG/5 ML 100 ML BTL PO SCH ×4 (02:19→21:43)
[2018-08-24 03:40] LABS: Basophils # (auto) 0.01 K/uL (0-0.2); Basophils % (auto) 0.1 %; Eosinophils # (auto) 0.18 K/uL (0-0.5); Eosinophils % (auto) 1.7 %; Hematocrit (blood only) 33.4 % (42-52); Immature Granulocytes # (auto) 0.03 K/uL (0.00-0.02); Immature Granulocytes % (auto) 0.3 %; Lymphocytes # (auto) 2.13 K/uL (1.2-3.4); Lymphocytes % (auto) 20.1 %; Mean Corpuscular Hgb Conc 32.9 g/dL (32-36); Mean Corpuscular Volume 93.6 fL (80-100); Mean Platelet Volume 9.8 fL (7.4-10.4); Monocytes % (auto) 14.1 %; Neutrophils # (auto) 6.77 K/uL (1.4-6.5); Neutrophils % (auto) 63.7 %; Platelet Count 196 K/uL (130-400); RDW Coefficient of Variation 14.9 % (11.5-14.5); RDW Standard Deviation 50.4 fL (36.4-46.3); Red Blood Count 3.57 M/uL (4.7-6.1); White Blood Count 10.62 K/uL (4.8-10.8)
[2018-08-24 04:00] LABS: BUN Creatinine Ratio 13.1 (10-20); Calcium 8.3 mg/dl (8.5-10.1); Creatinine Clr Calc Pharmacy 70.4 ml/min; Est GFR (African American) 74.7; Est GFR (Non-African American) 64.4; Potassium 3.7 mmol/L (3.5-5.1)
[2018-08-24 04:09] LABS: Troponin I 2.32 ng/ml (0-0.045)
[2018-08-24] MEDS: PANTOprazole 40 MG in SYRINGE 0 ML IV SCH ×2 (09:03→21:34)
[2018-08-24] MEDS: LISINOPRIL 5 MG TAB PO SCH (09:03)
[2018-08-24] MEDS: CHOLECALCIFEROL 1,000 UNITS TAB PO SCH (09:03)
[2018-08-24] MEDS: CARBIDOPA/LEVODOPA 25/100MG TAB PO SCH ×4 (09:03→18:24)
[2018-08-24] MEDS: METOPROLOL SUCC 25MG EXT REL TAB PO SCH (09:03)
[2018-08-24] MEDS: ALLOPURINOL 300 MG TAB PO SCH (09:04)
[2018-08-24] MEDS: cephALEXin 500 MG CAP PO SCH ×3 (09:04→21:36)
[2018-08-24] MEDS: CYANOCOBALAMIN 500 MCG TABLET (VITAMIN B-12) PO SCH (09:04)
[2018-08-24] MEDS: ATORVASTATIN 40 MG TAB PO SCH (09:04)
[2018-08-24] MEDS: GABAPENTIN 300 MG CAP PO SCH ×4 (09:04→21:37)
[2018-08-24] MEDS: SERTRALINE HCL 50 MG TABLET PO SCH (09:05)
[2018-08-24] MEDS: POTASSIUM CHLORIDE 10 MEQ in SODIUM CHLORIDE 0.45 % 1,000 ML IV SCH (09:07)
--- NOTE | 2018-08-24 09:32 | Gastroenterology Progress Note ---
Date of Service August 24, 2018 Assessment & Plan (1) Ileus: Patient with history of Parkinson's on a number of medications which could cause an ileus. The imaging from yesterday and from his CT scan earlier this week are suggestive of an ileus. He seems to have improved with NG tube suction and continued IV hydration. The most likely etiology of this is medication such as gabapentin or perhaps his antidepressant. If not necessary I would suggest removal of these medications. Recommendation Daily abdominal x-rays Continue NG tube to low intermittent suction Consider discontinuation of gabapentin and/or his SSRI Continue erythromycin Subjective The patient is able to carry on a conversation today. This is improved from yesterday. He seems to be aware of his surroundings and was able to answer specific questions this morning. Of note it did appear that he put out a large amount of fluid after placement of the NG tube yesterday. Physical Exam Vital Signs (Past 24 Hours): Last Vital Signs Temp 36.6 C 08/24/18 07:53 Pulse 68 08/24/18 07:53 Resp 22 08/24/18 07:53 BP 128/64 08/24/18 07:53 Pulse Ox 91 08/24/18 07:53 Constitutional: WD/WN, vitals as above no acute distress Eyes: PERRL, conjunctivae normal, anicteric sclerae Neck: trachea midline, no thyromegaly Cardiovascular: Rate/Rhythm: regular rate Heart Sounds: + murmur Gastrointestinal (Abdomen): Mild distention of the abdomen noted, improved fr om yesterday. No tenderness on deep palpation Neurologic: Motor/Sensory: + tremor Results & Data Laboratory Results Laboratory Results - last 24 hr 08/23/18 08/23/18 08/23/18 11:31 15:29 16:17 WBC RBC Hgb Hct MCV MCH MCHC RDW Std Deviation RDW Coeff of Shilpa Plt Count MPV Immature Gran % (Auto) Neut % (Auto) Lymph % (Auto) Rich % (Auto) Eos % (Auto) Baso % (Auto) Immature Gran # (Auto) Neut # (Auto) Lymph # (Auto) Rich # (Auto) Eos # (Auto) Baso # (Auto) Sodium Potassium Chloride Carbon Dioxide Anion Gap BUN Creatinine Est Cr Clr Drug Dosing Est GFR ( Amer) Est GFR (Non-Af Amer) BUN/Creatinine Ratio Glucose POC Glucose 122 H 127 H Calcium Troponin I 2.370 H* 08/23/18 08/24/18 08/24/18 21:21 00:01 03:21 WBC RBC Hgb Hct MCV MCH MCHC RDW Std Deviation RDW Coeff of Shilpa Plt Count MPV Immature Gran % (Auto) Neut % (Auto) Lymph % (Auto) Rich % (Auto) Eos % (Auto) Baso % (Auto) Immature Gran # (Auto) Neut # (Auto) Lymph # (Auto) Rich # (Auto) Eos # (Auto) Baso # (Auto) Sodium 138 Potassium 3.7 Chloride 107 Carbon Dioxide 25 Anion Gap 6.0 BUN 14 Creatinine 1.10 Est Cr Clr Drug Dosing 70.4 Est GFR ( Amer) 74.7 Est GFR (Non-Af Amer) 64.4 BUN/Creatinine Ratio 13.1 Glucose 102 H POC Glucose 103 H Calcium 8.3 L Troponin I 3.140 H* 2.320 H* 08/24/18 08/24/18 03:21 06:15 WBC 10.62 RBC 3.57 L Hgb 11.0 L Hct 33.4 L MCV 93.6 MCH 30.8 MCHC 32.9 RDW Std Deviation 50.4 H RDW Coeff of Shilpa 14.9 H Plt Count 196 MPV 9.8 Immature Gran % (Auto) 0.3 Neut % (Auto) 63.7 Lymph % (Auto) 20.1 Rich % (Auto) 14.1 Eos % (Auto) 1.7 Baso % (Auto) 0.1 Immature Gran # (Auto) 0.03 H Neut # (Auto) 6.77 H Lymph # (Auto) 2.13 Rich # (Auto) 1.50 H Eos # (Auto) 0.18 Baso # (Auto) 0.01 Sodium Potassium Chloride Carbon Dioxide Anion Gap BUN Creatinine Est Cr Clr Drug Dosing Est GFR ( Amer) Est GFR (Non-Af Amer) BUN/Creatinine Ratio Glucose POC Glucose 102 H Calcium Troponin I
--- NOTE | 2018-08-24 09:50 | XRay Report ---
XR abdomen min 2V HISTORY: 77 years-old Male follow up distention acute bowel distention COMPARISON: Abdominal radiographs 08/23/2018 TECHNIQUE: 2 views of the abdomen FINDINGS: Enteric tube distal tip projects over the central abdomen, likely within the mid to distal gastric barb men. Decreased gastric distention from comparison. Distention of the large and small bowel redemonstr ated which appears unchanged from comparison study. Loops of colon within the left lower quadrant abd omen measuring up to 13.0 cm transversely, previously approximately 12 cm. Small bowel loops measure up to 4.5 cm transversely. No pneumatosis or pneumoperitoneum. No definite urolith. Degenerative adams ges of the spine, pelvis and hips. IMPRESSION: 1. Decreased gastric distention status post placement of enteric tube. 2. Persistent large and small bowel distention redemonstrated suggestive of probable ileus. Continued follow-up recommended. The above report was generated using voice recognition software. It may contain grammatical, syntax o r spelling errors. Electronically signed by: Eren Evans M.D. 08/24/2018 9:47 AM
--- NOTE | 2018-08-24 14:33 | Family Medicine Progress Note ---
Date of Service August 24, 2018 Assessment & Plan (1) Parkinson disease: 77-year-old male was admitted on 21 August 2018 for hallucinations, difficulty walking, abdominal distention, and lower extremity cellulitis. Parkinson's disease: No acute findings on head CT or MRI brain. Neurology consu lted, see related notes. Hallucinations thought to be related to Parkinson's, dementia, and/or Sinemet. Also may have been worsened by his concurrent cellulitis and mild dehydration. - Plan to continue Sinemet 25/100 mg 2 tablets 730/1130/1500, 1 tablet 1900, CR 25/100 mg 1 tablet 2300. - On gabapentin with renal monitoring. Left lower extremity cellulitis: May be related to a fall two weeks prior to admission that resulted in a laceration of the leg. 03Apr started on Ancef but then converted to Keflex TID. Improving on serial examinations. Coffee-ground emesis, abdominal distention, ileus: Noted in a.m. on 05Apr. GI consulted (see related notes). May be a result of his antiparkinsonian medications. Recheck of hemoglobin noted initial stability. 06Apr repeat abdominal x-ray noted decreased gastric distention but continued ileus. - On Protonix IV twice daily. On erythromycin as a motility agent. Placed on NG tube to low intermittent suction. Consider surgical consultation if not improving. Hopefully NG tube can be removed tomorrow (07Apr). - C. difficile testing pending. Chronic constipation: Most recently he is actually had loose stools 1-2 times per day for 1 week prior to admission. Initially held his home MiraLAX and Dulcolax, but will restart due to no BM in past 48 hours. Elevated troponin: Patient has a PMH of STEMI. Has been asymptomatic here. EKG with artifact making interpretation difficulty. Max TnI thus far was 3.14, since trending down. Still suspect demand ischemia. Could not start heparin due to GI bleed. 05Apr echocardiogram noted EF 30-35% with no significant changes compared to April 2018 (see full reports). We will continue with previous plan of medical management, as patient has previously not wanted a cardiac cath. Ongoing medical issues: - Hypertension, hyperlipidemia: Continue home atorvastatin, lisinopril, and metoprolol. --- Holding home aspirin and Plavix due to GI bleed. - DM Type 2: Hold his home metformin while inpatient. Started on insulin sliding scale. - Gout: Continue home allopurinol. - LEN: CPAP ordered. - Anxiety: Continue home sertraline. Code status: Full code. Diet: NPO. DVT prophy: Held due to GI bleed. PT/OT: See related notes. Disbo: Admitted to [facility]. Ultimately, family does not wish patient to be discharged to SNF but would agree to home PT. (2) Cellulitis: (3) Coffee ground emesis: (4) Ileus: (5) Constipation: (6) Elevated troponin: (7) Hypertension: (8) Hyperlipidemia: (9) Diabetes: (10) Gout: (11) Obstructive sleep apnea: (12) Anxiety: Supervising Physician Co-Signing Physician Notes I personally examined the patient and verified all loera points of history and exam, discussed case, and agree with decision making with Dr Presley. distention improved. seems to be doing better overall. dtr present and updated extensively. all questions answered to the best of my ability. Vitals noted, in general he is in no distress but does appear more fatigued. abd less distended than yesterday. Neuro shows no new focal deficits. Cellulitisimproved, finish short course of abx. Mild dehydrationimproved, continue IV fluids given that his gastric distention is now precluding p.o. intake. Parkinson'sit appears that the physiologic/metabolic stress from the cellulitis and mild dehydration made his Parkinson symptoms worse. Appreciate neurology input. continue home meds as possible Gastric distention/coffee-ground emesisacid suppression - new/recurrent ileus either parkinsons or parkinsons meds related - but dtr notes he has had exactly this kind of flare up before. continue NGT. supportive care. fortunately no serious bleed noted. elevated troponin/demand ischemia - reiterated /agreed w plan for med management, as does dtr. otherwise as above Subjective Met with patient earlier this morning. He said that overall he had no particular complaints and that his leg felt better. He specifically denies any chest pain, abdominal pain, or difficulty breathing. On re-rounding early in the afternoon, spoke with patient's daughter. She stated that he seems to be improved and that she was able to have a small conversation with him today. We discussed his overall status and goals of care. She continues to reiterate that the goal is for the patient to return home with home health assistance there. Physical Exam Vital Signs (Past 24 Hours): Last Vital Signs Temp 36.8 C 08/24/18 12:55 Pulse 72 08/24/18 12:55 Resp 20 08/24/18 12:55 BP 152/80 H 08/24/18 12:55 Pulse Ox 92 08/24/18 12:55 Physical Exam: General Appearance: Appears somnolent most of the time. Overall appears comfortable, opening his eyes to voice and occasionally answers questions. CV: +S1S2 RRR, no murmur. Pulm: Clear to auscultation throughout. Abdomen: +BS, soft, non-tender, non-distended. Nasogastric tube in the right nare. Amaya catheter in place. Extremities: No pedal edema or calf tenderness. Moving all extremities naturally and easily. Neuro: No resting tremor but does have some occasional purposeless rolling movements of the bilateral arms. Results & Data Laboratory Results 08/24/18 08/24/18 08/24/18 Range/Units 11:45 06:15 03:21 WBC 10.62 (4.8-10.8) K/uL RBC 3.57 L (4.7-6.1) M/uL Hgb 11.0 L (14.0-18.0) g/dL Hct 33.4 L (42-52) % MCV 93.6 (80-100) fL MCH 30.8 (25-34) pg MCHC 32.9 (32-36) g/dL RDW Std Deviation 50.4 H (36.4-46.3) fL RDW Coeff of Shilpa 14.9 H (11.5-14.5) % Plt Count 196 (130-400) K/uL MPV 9.8 (7.4-10.4) fL Immature Gran % (Auto) 0.3 % Neut % (Auto) 63.7 % Lymph % (Auto) 20.1 % [place] % (Auto) 14.1 % Eos % (Auto) 1.7 % Baso % (Auto) 0.1 % Immature Gran # (Auto) 0.03 H (0.00-0.02) K/uL Neut # (Auto) 6.77 H (1.4-6.5) K/uL Lymph # (Auto) 2.13 (1.2-3.4) K/uL [place] # (Auto) 1.50 H (0.11-0.59) K/uL Eos # (Auto) 0.18 (0-0.5) K/uL Baso # (Auto) 0.01 (0-0.2) K/uL Sodium (136-145) mmol/L Potassium (3.5-5.1) mmol/L Chloride (98-107) mmol/L Carbon Dioxide (21-32) mmol/L Anion Gap (3-11) BUN (7-18) mg/dl Creatinine (0.6-1.4) mg/dl Est Cr Clr Drug Dosing ml/min Est GFR ( Amer) Est GFR (Non-Af Amer) BUN/Creatinine Ratio (10-20) Glucose (70-99) mg/dl POC Glucose 103 H 102 H (70-99) Calcium (8.5-10.1) mg/dl Troponin I (0-0.045) ng/ml 08/24/18 08/24/18 08/23/18 Range/Units 03:21 00:01 21:21 WBC (4.8-10.8) K/uL RBC (4.7-6.1) M/uL Hgb (14.0-18.0) g/dL Hct (42-52) % MCV (80-100) fL MCH (25-34) pg MCHC (32-36) g/dL RDW Std Deviation (36.4-46.3) fL RDW Coeff of Shilpa (11.5-14.5) % Plt Count (130-400) K/uL MPV (7.4-10.4) fL Immature Gran % (Auto) % Neut % (Auto) % Lymph % (Auto) % [place] % (Auto) % Eos % (Auto) % Baso % (Auto) % Immature Gran # (Auto) (0.00-0.02) K/uL Neut # (Auto) (1.4-6.5) K/uL Lymph # (Auto) (1.2-3.4) K/uL [place] # (Auto) (0.11-0.59) K/uL Eos # (Auto) (0-0.5) K/uL Baso # (Auto) (0-0.2) K/uL Sodium 138 (136-145) mmol/L Potassium 3.7 (3.5-5.1) mmol/L Chloride 107 (98-107) mmol/L Carbon Dioxide 25 (21-32) mmol/L Anion Gap 6.0 (3-11) BUN 14 (7-18) mg/dl Creatinine 1.10 (0.6-1.4) mg/dl Est Cr Clr Drug Dosing 70.4 ml/min Est GFR ( Amer) 74.7 Est GFR (Non-Af Amer) 64.4 BUN/Creatinine Ratio 13.1 (10-20) Glucose 102 H (70-99) mg/dl POC Glucose 103 H (70-99) Calcium 8.3 L (8.5-10.1) mg/dl Troponin I 2.320 H* 3.140 H* (0-0.045) ng/ml 08/23/18 08/23/18 Range/Units 16:17 15:29 WBC (4.8-10.8) K/uL RBC (4.7-6.1) M/uL Hgb (14.0-18.0) g/dL Hct (42-52) % MCV (80-100) fL MCH (25-34) pg MCHC (32-36) g/dL RDW Std Deviation (36.4-46.3) fL RDW Coeff of Shilpa (11.5-14.5) % Plt Count (130-400) K/uL MPV (7.4-10.4) fL Immature Gran % (Auto) % Neut % (Auto) % Lymph % (Auto) % [place] % (Auto) % Eos % (Auto) % Baso % (Auto) % Immature Gran # (Auto) (0.00-0.02) K/uL Neut # (Auto) (1.4-6.5) K/uL Lymph # (Auto) (1.2-3.4) K/uL [place] # (Auto) (0.11-0.59) K/uL Eos # (Auto) (0-0.5) K/uL Baso # (Auto) (0-0.2) K/uL Sodium (136-145) mmol/L Potassium (3.5-5.1) mmol/L Chloride (98-107) mmol/L Carbon Dioxide (21-32) mmol/L Anion Gap (3-11) BUN (7-18) mg/dl Creatinine (0.6-1.4) mg/dl Est Cr Clr Drug Dosing ml/min Est GFR ( Amer) Est GFR (Non-Af Amer) BUN/Creatinine Ratio (10-20) Glucose (70-99) mg/dl POC Glucose 127 H (70-99) Calcium (8.5-10.1) mg/dl Troponin I 2.370 H* (0-0.045) ng/ml Medications Administered Current Inpatient Medications Acetaminophen (Tylenol) 650 mg PO Q4H PRN PRN Reason: Pain Stop: 09/20/18 20:59 Last Admin: 08/22/18 22:12 Dose: 650 mg Documented by: [facility]) [facility] [place] Stop: 09/22/18 08:59 Last Admin: 08/24/18 09:04 Dose: 300 mg Documented by: Aspirin (Ecotrin Ectab) [facility] [place] Stop: 09/22/18 08:59 Atorvastatin Calcium (Lipitor) 80 [facility] [place] Stop: 09/22/18 08:59 Last Admin: 08/24/18 09:04 Dose: 80 mg Documented by: Bisacodyl (Dulcolax) 5 mg PO QPM [facility] Stop: 09/23/18 20:59 Carbidopa/Levodopa (Sinemet 25/100 Mg) 2 tab PO 0730,1130,1500 [facility] Stop: 09/21/18 07:29 Last Admin: 08/24/18 12:30 Dose: 2 tab Documented by: Carbidopa/Levodopa (Sinemet 25/100 Mg) 1 tab PO DAILY@1900 [facility] Stop: 09/21/18 18:59 Last Admin: 08/23/18 18:53 Dose: 1 tab Documented by: Carbidopa/Levodopa (Sinement Cr 25/100mg) 1 tab PO DAILY@2300 [facility] Stop: 09/20/18 22:59 Last Admin: 08/24/18 00:04 Dose: 1 tab Documented by: Cephalexin HCl (Keflex) 500 mg PO TID [facility] Stop: 09/01/18 14:24 Last Admin: 08/24/18 09:04 Dose: 500 mg Documented by: Clopidogrel Bisulfate (Plavix) 75 mg PO QAM [facility] Stop: 09/22/18 08:59 Cyanocobalamin (Vitamin B-12) 2,000 mcg PO QAM [facility] Stop: 09/22/18 08:59 Last Admin: 08/24/18 09:04 Dose: 2,000 mcg Documented by: Dextrose (Dextrose 50%) 25 - 50 ml IV UD PRN; Protocol PRN Reason: Hypoglycemia Protocol Stop: 09/21/18 15:59 Erythromycin Ethylsuccinate (Eryped) 250 mg PO Q6H [facility] Stop: 08/24/18 20:01 Last Admin: 08/24/18 09:08 Dose: 250 mg Documented by: Gabapentin (Neurontin) 300 mg PO QID [facility] Stop: 09/21/18 16:59 Last Admin: 08/24/18 12:30 Dose: 300 mg Documented by: Glucagon (Glucagen) 1 mg SQ UD PRN; Protocol PRN Reason: Hypoglycemia Protocol Stop: 09/21/18 15:59 Glucose (Glucose 40%) 15 - 30 gm PO UD PRN; Protocol PRN Reason: Hypoglycemia Protocol Stop: 09/21/18 15:59 Glucose (Dex4 Glucose) 4 - 8 tabs PO UD PRN; Protocol PRN Reason: Hypoglycemia Protocol Stop: 09/21/18 15:59 Potassium Chloride 10 meq/ (Sodium Chloride) 1,005 mls @ 65 mls/hr IV .[id number] [facility] Stop: 09/20/18 19:59 Last Admin: 08/24/18 09:07 Dose: 65 mls/hr Documented by: Pantoprazole Sodium 40 mg/ (Syringe) 10 mls @ 5 mls/min IV BID [facility] Stop: 08/27/18 09:01 Last Admin: 08/24/18 09:03 Dose: 5 mls/min Documented by: Insulin Aspart (Novolog Flexpen) 0 units SC Q6 [facility] Stop: 09/23/18 00:00 Last Admin: 08/24/18 12:30 Dose: Not Given Documented by: Ioversol (Optiray 320 100ml) 94 ml IV ONCE PRN PRN Reason: Interaction Checking Stop: 08/25/18 14:22 Last Admin: 08/21/18 14:24 Dose: 94 ml Documented by: Lisinopril (Zestril) [facility] [place] Stop: 09/22/18 08:59 Last Admin: 08/24/18 09:03 Dose: 5 mg Documented by: Metoprolol Succinate (Toprol Xl) 25 mg PO QAM [facility] Stop: 09/22/18 08:59 Last Admin: 08/24/18 09:03 Dose: 25 mg Documented by: Miscellaneous (Carbohydrates For Hypoglycemia) 15 - 30 gm PO UD PRN PRN Reason: Hypoglycemia Treatment Stop: 09/21/18 15:59 Polyethylene Glycol (Miralax Powder Packet) 17 gm PO BID [facility] Stop: 09/23/18 20:59 Ranitidine HCl (Zantac) 150 mg PO BID [facility] Stop: 09/21/18 20:59 Last Admin: 08/24/18 09:05 Dose: 150 mg Documented by: Sertraline HCl (Zoloft) 50 mg PO QAM [facility] Stop: 09/22/18 08:59 Last Admin: 08/24/18 09:05 Dose: 50 mg Documented by: Vitamin D (Vitamin D3) 1,000 units PO QAM [facility] Stop: 09/22/18 08:59 Last Admin: 08/24/18 09:03 Dose: 1,000 units Documented by: Resident Activity Tracking Resident Involvement: Resident Care Provided Care Provided: Adult Hospital Medicine (1) Diabetes Diabetes mellitus complication status: without complication Diabetes mellitus penitentiary insulin use: without penitentiary use Diabetes mellitus type: type 2 Qualified Code(s): E11.9 - Type 2 diabetes mellitus without complications (2) Gout Gout etiology: unspecified cause Gout site: unspecified site (3) Cellulitis Laterality: left Site of cellulitis: extremity Site of cellulitis of extremity: lower extremity Qualified Code(s): L03.116 - Cellulitis of left lower limb (4) Hypertension Hypertension type: essential hypertension Qualified Code(s): I10 - Essential (primary) hypertension
[2018-08-24] MEDS ORDERED: METHYLNALTREXONE BROMIDE 12 MG/0.6 ML VIAL SQ ONE (21:00)
[2018-08-24] MEDS: POLYETHYLENE (MIRALAX) 17 GM PACK PO SCH (21:36)
[2018-08-24] MEDS: BISACODYL 5 MG TABEC PO SCH (21:36)
[2018-08-25] MEDS: CARBIDOPA/LEVODOPA 25/100MG EXT REL TAB PO SCH ×2 (00:18→23:20)
[2018-08-25] MEDS: INSULIN ASPART 100 UNITS/ML 3 ML PEN SC SCH ×4 (00:20→18:18)
[2018-08-25] MEDS: POTASSIUM CHLORIDE 10 MEQ in SODIUM CHLORIDE 0.45 % 1,000 ML IV SCH ×2 (00:48→16:34)
--- NOTE | 2018-08-25 07:49 | XRay Report ---
XR KUB/Abdomen 1 view CLINICAL HISTORY: 77 years-old Male presenting with eval for improvement of colonic dilation. TECHNIQUE: Single supine view of the abdomen was obtained. COMPARISON: 08/24/[address] from 08/21/2018. FINDINGS: The nasogastric tube projects over the gastric body with sidehole contained within the gastric lumen. Diffuse gaseous distention of small and large bowel. The severity of bowel distention is unchanged. There is now suggestion of wall thickening of colon within the right upper quadrant. No gross pneumop eritoneum allowing for supine technique. Allowing for bowel gas and stool, no calcifications to suggest nephrolithiasis. Degenerative changes of the spine. Osteopenia suspected. Lung bases clear. IMPRESSION: 1. Colonic wall thickening suspected in the right upper quadrant. This may indicate a mild colitis, which is compatible with the recent findings of colonic fluid on CT, which suggested a diarrheal stat e at that time. 2. No bowel obstruction. Findings suggest colonic pseudoobstruction. Severity of colonic distention unchanged. 3. Appropriately positioned nasogastric tube. Electronically signed by: John Alejandre M.D. 08/25/2018 7:47 AM
[2018-08-25] MEDS: PANTOprazole 40 MG in SYRINGE 0 ML IV SCH (08:02)
[2018-08-25] MEDS: GABAPENTIN 300 MG CAP PO SCH ×3 (08:02→21:16)
[2018-08-25] MEDS: METOPROLOL SUCC 25MG EXT REL TAB PO SCH (08:02)
[2018-08-25] MEDS: CHOLECALCIFEROL 1,000 UNITS TAB PO SCH (08:03)
[2018-08-25] MEDS: LISINOPRIL 5 MG TAB PO SCH (08:03)
[2018-08-25] MEDS: SERTRALINE HCL 50 MG TABLET PO SCH (08:03)
[2018-08-25] MEDS: CARBIDOPA/LEVODOPA 25/100MG TAB PO SCH ×4 (08:03→18:35)
[2018-08-25] MEDS: CYANOCOBALAMIN 500 MCG TABLET (VITAMIN B-12) PO SCH (08:03)
[2018-08-25] MEDS: POLYETHYLENE (MIRALAX) 17 GM PACK PO SCH ×2 (08:04→21:16)
[2018-08-25] MEDS: cephALEXin 500 MG CAP PO SCH ×3 (08:04→21:18)
[2018-08-25] MEDS: ALLOPURINOL 300 MG TAB PO SCH (08:04)
[2018-08-25] MEDS: ATORVASTATIN 40 MG TAB PO SCH (08:04)
--- NOTE | 2018-08-25 08:19 | Gastroenterology Progress Note ---
Date of Service August 25, 2018 Assessment & Plan (1) Ileus: Patient's history I suspect that he may have colonic pseudoobstruction as a result of his long-standing Parkinson's disease. He did have improvement with the use of Relistor last evening. Therefore I would suggest that we use this m edication every 48 hours for the next few days. He should also have a daily KUB, this can be ordered by the primary service. As the patient is nontender and seems to be having spontaneous bowel movements and passage of gas I would not recommend colonic decompression at the present time. (2) Pseudoobstruction of colon: Subjective I waited the patient. He is able to carry on short conversation with me today. He does continue to have problems with his tremor. The nursing staff reports that he had several bowel movements over the evening and early this morning.I decided to give the patient a dose of Relistor last evening after reviewing his x-ray findings which showed colonic dilation. Respiratory: no change in sputum and no hemoptysis Cardiovascular: no chest pain with activity Gastrointestinal: + bloating; no nausea and no hematemesis Physical Exam Vital Signs (Past 24 Hours): Last Vital Signs Temp 36.8 C 08/25/18 06:54 Pulse 87 08/25/18 06:54 Resp 16 08/25/18 06:54 BP 136/70 08/25/18 06:54 Pulse Ox 93 08/25/18 06:54 Respiratory: normal respiratory effort; no respiratory distress and does not use accessory muscles Cardiovascular: Rate/Rhythm: regular rhythm Heart Sounds: + murmur Gastrointestinal (Abdomen): Percussion/Palpation: abdomen soft; abdomen nontender and no guarding Abdomen is notedly less distended today. Results & Data Laboratory Results Laboratory Results - last 24 hr 08/24/18 08/24/18 08/25/18 11:45 18:26 00:24 POC Glucose 103 H 104 H 98 08/25/18 06:03 POC Glucose 91 Diagnostic Findings R KUB/Abdomen 1 view CLINICAL HISTORY: 77 years-old Male presenting with eval for improvement of colonic dilation. TECHNIQUE: Single supine view of the abdomen was obtained. COMPARISON: 08/24/[address] from 08/21/2018. FINDINGS: The nasogastric tube projects over the gastric body with sidehole contained within the gastric lumen. Diffuse gaseous distention of small and large bowel. The severity of bowel distention is unchanged. There is now suggestion of wall thickening of colon within the right upper quadrant. No gross pneumoperitoneum allowing for supine technique. Allowing for bowel gas and stool, no calcifications to suggest nephrolithiasis. Degenerative changes of the spine. Osteopenia suspected. Lung bases clear. IMPRESSION: 1. Colonic wall thickening suspected in the right upper quadrant. This may indicate a mild colitis, which is compatible with the recent findings of colonic fluid on CT, which suggested a diarrheal state at that time. 2. No bowel obstruction. Findings suggest colonic pseudoobstruction. Severity of colonic distention unchanged. 3. Appropriately positioned nasogastric tube.
--- NOTE | 2018-08-25 09:00 | Family Medicine Progress Note ---
Date of Service August 25, 2018 Assessment & Plan (1) Parkinson disease: 77-year-old male was admitted on 21 August 2018 for hallucinations, difficulty walking, abdominal distention, and lower extremity cellulitis. Parkinson's disease: Neurology consulted, see related notes. Hallucinations tho ught to be related to Parkinson's, dementia, and/or Sinemet. Also may have been worsened by his concurrent cellulitis and mild dehydration. - Plan to continue Sinemet 25/100 mg 2 tablets 730/1130/1500, 1 tablet 1900, CR 25/100 mg 1 tablet 2300. Left lower extremity cellulitis: May be related to a fall two weeks prior to admission that resulted in a laceration of the leg. 03Apr started on Ancef but then converted to Keflex TID. Continues to improve. Coffee-ground emesis, abdominal distention, ileus: Noted in a.m. on 05Apr. GI consulted (see related notes). May be a result of his antiparkinsonian medications. Stable hemoglobin. On Protonix IV twice daily. On erythromycin as a motility agent. Placed on NG tube to low intermittent suction. - Serial abdominal XR (last Apr) concerning for pseudoobstruction. GI recommends q48h use of relistor. - C. difficile testing pending. - On gabapentin (with renal monitoring) for leg pains. Since gabapentin may be contributing to these abdominal issues, will decrease frequency from QID to TID. Patient has been on this medication for years, so suspect further tapering (if tolerated by patient) would be with changes every couple of weeks. Chronic constipation: Actually some loose stools prior to admit which resolved. Restarted his home MiraLAX and Dulcolax. Large BM overnight (-Apr). Elevated troponin: PMH of STEMI. Remains asymptomatic here. EKG with artifact making interpretation difficulty. Max TnI was 3.14, since trending down. Still suspect demand ischemia. Could not start heparin due to GI bleed. 05Apr echocardiogram noted EF 30-35% with no significant changes compared to April 2018 (see full reports). Will continue with previous plan of medical management, as patient has previously not wanted a cardiac cath. Ongoing medical issues: - Hypertension, hyperlipidemia: Continue home atorvastatin, lisinopril, and metoprolol. --- Holding home aspirin and Plavix due to GI bleed. - DM Type 2: Hold his home metformin while inpatient. On insulin sliding scale. - Gout: Continue home allopurinol. - LEN: CPAP ordered. - Anxiety: Continue home sertraline. Code status: Full code. Diet: NPO. DVT prophy: Held due to GI bleed. PT/OT: See related notes. Disbo: Admitted to [facility]. - update: Daughter says that the home situation has changed and that now family is looking towards patient to be transferred to [facility] at time of discharge. Daughter says they are not interested in other facilities. (2) Cellulitis: (3) Coffee ground emesis: (4) Ileus: (5) Constipation: (6) Elevated troponin: (7) Hypertension: (8) Hyperlipidemia: (9) Diabetes: (10) Gout: (11) Obstructive sleep apnea: (12) Anxiety: Supervising Physician Co-Signing Physician Notes I personally examined the patient and verified all loera points of history and exam, discussed case, and agree with decision making with Dr Presley. distention improved. pt/dtr seem pleased with progress. no new issues medically. dtr does note that family will not be providing her with the wraparound support she would need to take care of him at home, so she requests that we set things in motion for [facility]. she notes that previously it gets denied but she is then able to successfully appeal. Vitals noted, in general he is in no distress. abd less distended than before, nontender. Cellulitisimproved, finish short course of abx. Mild dehydrationimproved, continue IV fluids given that his gastric distention is now precluding p.o. intake. Parkinson'sit appears that the physiologic/metabolic stress from the cellulitis and mild dehydration made his Parkinson symptoms worse. Appreciate neurology input. continue home meds as possible Gastric distention/coffee-ground emesisacid suppression - new/recurrent ileus either parkinsons or parkinsons meds vs gabapentin related - continue NGT. supportive care. fortunately no serious bleed noted. as far as etiology - can't fundamentally change parkinsons/would not want to reduce sinemet since it is overall helping w parkinsons. gabapentin seems to be there for question of leg sx that predated the parkinsons and that the dtr thinks may have been parkinsons related all along - either way, certainly safe/rational to slowly reduce gabapentin - and every 2-4wks if no new/worse/recurrent sx, can slowly wean to lowest needed dose or even zero mg if possible. elevated troponin/demand ischemia - on 08/24 reiterated /agreed w plan for med management, as does dtr. otherwise as above Subjective Found patient sitting in his bedside chair, conversing easily. He says that he remains pain-free ever since his admission. He would like to get some coffee and eat something as soon as possible. He denied any particular concerns otherwise. Physical Exam Vital Signs (Past 24 Hours): Last Vital Signs Temp 36.8 C 08/25/18 06:54 Pulse 87 08/25/18 06:54 Resp 16 08/25/18 06:54 BP 136/70 08/25/18 06:54 Pulse Ox 93 08/25/18 06:54 Physical Exam: General Appearance: Found patient sitting comfortably in his bedside chair this morning. Appears overall comfortable, answering questions, and in no acute distress. CV: +S1S2 RRR, no murmur. Pulm: Clear to auscultation throughout. Ongoing congested cough. Abdomen: +BS, soft, non-tender, non-distended. Nasogastric tube in the right nare. Amaya catheter in place. Extremities: No pedal edema. Moving all extremities naturally and easily. The left lateral calf has a well-healing linear laceration with minimal surrounding erythema and associated ttp. Neuro: No resting tremor while sitting in his bedside chair. Previously has had a rolling tremor when sleeping. Results & Data Laboratory Results 08/25/18 08/25/18 08/24/18 Range/Units 06:03 00:24 18:26 POC Glucose 91 98 104 H (70-99) 08/24/18 Range/Units 11:45 POC Glucose 103 H (70-99) Medications Administered Current Inpatient Medications Acetaminophen (Tylenol) 650 mg PO Q4H PRN PRN Reason: Pain Stop: 09/20/18 20:59 Last Admin: 08/22/18 22:12 Dose: 650 mg Documented by: Allopurinol (Zyloprim) 300 mg PO QAM [facility] Stop: 09/22/18 08:59 Last Admin: 08/25/18 08:04 Dose: 300 mg Documented by: Aspirin (Ecotrin Ectab) 81 mg PO QAM [facility] Stop: 09/22/18 08:59 Atorvastatin Calcium (Lipitor) 80 mg PO QAM [facility] Stop: 09/22/18 08:59 Last Admin: 08/25/18 08:04 Dose: 80 mg Documented by: Bisacodyl (Dulcolax) 5 mg PO QPM [facility] Stop: 09/23/18 20:59 Last Admin: 08/24/18 21:36 Dose: 5 mg Documented by: Carbidopa/Levodopa (Sinemet 25/100 Mg) 2 tab PO 0730,1130,1500 [facility] Stop: 09/21/18 07:29 Last Admin: 08/25/18 08:03 Dose: 2 tab Documented by: Carbidopa/Levodopa (Sinemet 25/100 Mg) 1 tab PO DAILY@1900 [facility] Stop: 09/21/18 18:59 Last Admin: 08/24/18 18:24 Dose: 1 tab Documented by: Carbidopa/Levodopa (Sinement Cr 25/100mg) 1 tab PO DAILY@2300 [facility] Stop: 09/20/18 22:59 Last Admin: 08/25/18 00:18 Dose: 1 tab Documented by: Cephalexin HCl (Keflex) 500 mg PO TID [facility] Stop: 09/01/18 14:24 Last Admin: 08/25/18 08:04 Dose: 500 mg Documented by: Clopidogrel Bisulfate (Plavix) 75 mg PO QAM [facility] Stop: 09/22/18 08:59 Cyanocobalamin (Vitamin B-12) 2,000 mcg PO QAM [facility] Stop: 09/22/18 08:59 Last Admin: 08/25/18 08:03 Dose: 2,000 mcg Documented by: Dextrose (Dextrose 50%) 25 - 50 ml IV UD PRN; Protocol PRN Reason: Hypoglycemia Protocol Stop: 09/21/18 15:59 Gabapentin (Neurontin) 300 mg PO QID [facility] Stop: 09/21/18 16:59 Last Admin: 08/25/18 08:02 Dose: 300 mg Documented by: Glucagon (Glucagen) 1 mg SQ UD PRN; Protocol PRN Reason: Hypoglycemia Protocol Stop: 09/21/18 15:59 Glucose (Glucose 40%) 15 - 30 gm PO UD PRN; Protocol PRN Reason: Hypoglycemia Protocol Stop: 09/21/18 15:59 Glucose (Dex4 Glucose) 4 - 8 tabs PO UD PRN; Protocol PRN Reason: Hypoglycemia Protocol Stop: 09/21/18 15:59 Potassium Chloride 10 meq/ (Sodium Chloride) 1,005 mls @ 65 mls/hr IV .[id number] [facility] Stop: 09/20/18 19:59 Last Admin: 08/25/18 00:48 Dose: 65 mls/hr Documented by: Pantoprazole Sodium 40 mg/ (Syringe) 10 mls @ 5 mls/min IV BID [facility] Stop: 08/27/18 09:01 Last Admin: 08/25/18 08:02 Dose: 5 mls/min Documented by: Insulin Aspart (Novolog Flexpen) 0 units SC Q6 [facility] Stop: 09/23/18 00:00 Last Admin: 08/25/18 06:36 Dose: Not Given Documented by: Ioversol (Optiray 320 100ml) 94 ml IV ONCE PRN PRN Reason: Interaction Checking Stop: 08/25/18 14:22 Last Admin: 08/21/18 14:24 Dose: 94 ml Documented by: Lisinopril (Zestril) 5 mg PO QAM [facility] Stop: 09/22/18 08:59 Last Admin: 08/25/18 08:03 Dose: 5 mg Documented by: Metoprolol Succinate (Toprol Xl) 25 mg PO QAM [facility] Stop: 09/22/18 08:59 Last Admin: 08/25/18 08:02 Dose: 25 mg Documented by: Miscellaneous (Carbohydrates For Hypoglycemia) 15 - 30 gm PO UD PRN PRN Reason: Hypoglycemia Treatment Stop: 09/21/18 15:59 Polyethylene Glycol (Miralax Powder Packet) 17 gm PO BID [facility] Stop: 09/23/18 20:59 Last Admin: 08/25/18 08:04 Dose: 17 gm Documented by: Ranitidine HCl (Zantac) 150 mg PO BID [facility] Stop: 09/21/18 20:59 Last Admin: 08/25/18 08:02 Dose: 150 mg Documented by: Sertraline HCl (Zoloft) 50 mg PO QAM [facility] Stop: 09/22/18 08:59 Last Admin: 08/25/18 08:03 Dose: 50 mg Documented by: Vitamin D (Vitamin D3) 1,000 units PO QAM [facility] Stop: 09/22/18 08:59 Last Admin: 08/25/18 08:03 Dose: 1,000 units Documented by: Resident Activity Tracking Resident Involvement: Resident Care Provided Care Provided: Adult Hospital Medicine (1) Diabetes Diabetes mellitus complication status: without complication 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
[2018-08-25] MEDS ORDERED: PANTOprazole 40 MG TAB PO SCH (21:00)
[2018-08-25] MEDS: LANSOPRAZOLE 30 MG SOLTAB NG SCH (21:17)
[2018-08-25] MEDS: BISACODYL 5 MG TABEC PO SCH (21:18)
[2018-08-26] MEDS: ACETAMINOPHEN 325 MG TAB PO PRN (00:07)
[2018-08-26] MEDS: INSULIN ASPART 100 UNITS/ML 3 ML PEN SC SCH ×5 (00:20→22:27)
[2018-08-26 06:26] LABS: Basophils # (auto) 0.01 K/uL (0-0.2); Basophils % (auto) 0.1 %; Eosinophils # (auto) 0.09 K/uL (0-0.5); Eosinophils % (auto) 1.3 %; Hematocrit (blood only) 33.4 % (42-52); Hemoglobin 11.2 g/dL (14.0-18.0); Immature Granulocytes # (auto) 0.04 K/uL (0.00-0.02); Immature Granulocytes % (auto) 0.6 %; Lymphocytes # (auto) 0.74 K/uL (1.2-3.4); Lymphocytes % (auto) 10.8 %; Mean Corpuscular Hgb Conc 33.5 g/dL (32-36); Mean Platelet Volume 9.7 fL (7.4-10.4); Monocytes # (auto) 1.11 K/uL (0.11-0.59); Monocytes % (auto) 16.2 %; Neutrophils # (auto) 4.88 K/uL (1.4-6.5); Platelet Count 189 K/uL (130-400); RDW Coefficient of Variation 14.8 % (11.5-14.5); RDW Standard Deviation 50.5 fL (36.4-46.3); Red Blood Count 3.63 M/uL (4.7-6.1); White Blood Count 6.87 K/uL (4.8-10.8)
[2018-08-26 06:43] LABS: BUN Creatinine Ratio 11.5 (10-20); Calcium 8.3 mg/dl (8.5-10.1); Creatinine Clr Calc Pharmacy 79.9 ml/min; Est GFR (African American) 89.1; Est GFR (Non-African American) 76.9; Potassium 3.6 mmol/L (3.5-5.1)
--- NOTE | 2018-08-26 08:13 | XRay Report ---
XR abdomen 2V w PA chest CLINICAL HISTORY: serial ileus / obstruction evaluation COMPARISON STUDY: 08/25/2018 FINDINGS: Interval removal of the nasogastric tube. Moderate interval increase in distention of the c olon. This currently has a maximum diameter of 9 mm. Mild gastric distention. IMPRESSION: 1. Mildly progressive generalized colonic ileus. 2. Interval removal of the nasogastric tube. 3. Mild gastric distention. The above report was generated using voice recognition software. It may contain grammatical, syntax or spelling errors. Electronically signed by: Tom Auguste M.D. 08/26/2018 8:12 AM
[2018-08-26] MEDS: GABAPENTIN 300 MG CAP PO SCH ×3 (08:32→20:04)
[2018-08-26] MEDS: LISINOPRIL 5 MG TAB PO SCH (08:32)
[2018-08-26] MEDS: CARBIDOPA/LEVODOPA 25/100MG TAB PO SCH ×4 (08:32→20:03)
[2018-08-26] MEDS: cephALEXin 500 MG CAP PO SCH ×3 (08:32→20:04)
[2018-08-26] MEDS: ATORVASTATIN 40 MG TAB PO SCH (08:33)
[2018-08-26] MEDS: POLYETHYLENE (MIRALAX) 17 GM PACK PO SCH ×2 (08:33→20:03)
[2018-08-26] MEDS: ALLOPURINOL 300 MG TAB PO SCH (08:33)
[2018-08-26] MEDS: CYANOCOBALAMIN 500 MCG TABLET (VITAMIN B-12) PO SCH (08:33)
[2018-08-26] MEDS: CHOLECALCIFEROL 1,000 UNITS TAB PO SCH (08:33)
[2018-08-26] MEDS: METOPROLOL SUCC 25MG EXT REL TAB PO SCH (08:33)
[2018-08-26] MEDS: LANSOPRAZOLE 30 MG SOLTAB NG SCH ×2 (08:33→20:05)
[2018-08-26] MEDS: SERTRALINE HCL 50 MG TABLET PO SCH (08:33)
[2018-08-26] MEDS: POTASSIUM CHLORIDE 10 MEQ in SODIUM CHLORIDE 0.45 % 1,000 ML IV SCH ×2 (08:37→22:44)
--- NOTE | 2018-08-26 12:59 | Gastroenterology Progress Note ---
Date of Service August 26, 2018 Assessment & Plan (1) Ileus: Relistor Q 48 hrs. Could also consider enemas/dulcolax suppository. Encouraged ambulation. Daily KUB Clear liquids po. Advance slowly if pt continues to pass BMs. No plans for GI procedures at this time. Discussed with Dr. Hanson. We will sign off because no plans for GI procedures and because other than the medications listed above, and encouragement of ambulation, GI does not have further recommendations at this time. (2) Pseudoobstruction of colon: Supervising Physician Co-Signing Physician Notes Late entry: The patient was seen and examined with TRAVIS Knapp on 08/26. Her note reflects our findings and plan Subjective Mr Kendell Montalvo is a 77 yr old male with Parkinson's who has had gastric distention, colonic ileus. He has been tx with NG tube which decompressed the stomach but he pulled the tube last night and KUB with mild a gastric distention today. Constipation but passed one large liquid BM yesterday. Gastrointestinal: + bloating; no nausea and no hematemesis Physical Exam Vital Signs (Past 24 Hours): Last Vital Signs Temp 37.1 C 08/26/18 07:01 Pulse 73 08/26/18 07:01 Resp 18 08/26/18 07:01 BP 144/75 H 08/26/18 07:01 Pulse Ox 93 08/26/18 07:01 Constitutional: WD/WN, vitals as above Eyes: PERRL, conjunctivae normal, anicteric sclerae Neck: trachea midline, no thyromegaly Respiratory: normal respiratory effort, lungs clear to auscultation Cardiovascular: RRR, no murmur, no edema Gastrointestinal (Abdomen): Inspection/Auscultation: + abdomen distended Percussion/Palpation: abdomen nontender not taunt Skin: no jaundice Neurologic: + confused Motor/Sensory: + tremor (mild) and + abnormal movement (frequent repetitive small hand and lower arm)
[2018-08-26] MEDS ORDERED: Nursing to Pharmacy Communication ONE (16:53)
--- NOTE | 2018-08-26 17:08 | Family Medicine Progress Note ---
Date of Service August 26, 2018 Assessment & Plan (1) Parkinson disease: 77-year-old male was admitted on 21 August 2018 for hallucinations, difficulty walking, abdominal distention, and lower extremity cellulitis. #Hallucination in setting of Parkinson's disease: -Neurology consulted, see related notes. Hallucinations thought to be related to Parkinson's, dementia, and/or Sinemet. Also may have been worsened by his concurrent cellulitis and mild dehydration. -Plan to continue Sinemet 25/100 mg 2 tablets 730/1130/1500, 1 tablet 1900, CR 25/100 mg 1 tablet 2300. #Left lower extremity cellulitis: -May be related to a fall two weeks prior to admission that resulted in a laceration of the leg. -03Apr started on Ancef but then converted to Keflex TID. Follow for ongoing clincal improvement. #Coffee-ground emesis, abdominal distention, ileus: -Noted in a.m. on 05Apr. GI consulted (see related notes). -May be a result of his antiparkinsonian medications. -Resolved. Stable hemoglobin. -Appreciate GI recs -On Protonix IV twice daily. -Erythromycin given x 5 doses, minimal effect. -Initially placed on NG tube to low intermittent suction - self DCd, not replaced. Stable. -Serial abdominal XR 07Apr concerning for pseudoobstruction, not worsening on subsequent. - C. difficile testing pending, not collected due to difficulty with incontinent of stool. Per nursing, 1-2 soft/loose BMs per day. - On gabapentin (with renal monitoring) for leg pains. -Since gabapentin may be contributing to these abdominal issues, freq decr from QID to TID. -Patient has been on this medication for years, so suspect further tapering (if tolerated by patient) slowly every couple of weeks. #Chronic constipation: -Restarted his home MiraLAX and Dulcolax. -stooling -To continue q48h use of relistor. #Elevated troponin: PMH of STEMI, ischemic CM. -Remains asymptomatic here. -on plavix since Apr 2018 NSTEMI, rec to cont for 1 year. -Trop peaked at 3.14, since trending down. EKG with no clear ischemia or dynamic changes. -Still suspect demand ischemia. Heparin contraindicated due to GI bleed. -05Apr echocardiogram noted EF 30-35% with no significant changes compared to April 2018 (see full reports). Will continue with previous plan of medical management, as patient has previously not wanted a cardiac cath. FEN/GI: clears. DVT ppx: held due to GIB CODE STATUS: FULL DISPO: med surg. To [facility], family strongly advocating this. CM ongoing assistance. Ongoing medical issues: #Hypertension, hyperlipidemia: Continue home atorvastatin, lisinopril, and metoprolol. -Holding home aspirin and Plavix due to GI bleed. #DM Type 2: Hold his home metformin while inpatient. On insulin sliding scale. #Gout: Continue home allopurinol. #LEN: on CPAP. #Anxiety: Continue home sertraline. (2) Cellulitis: (3) Coffee ground emesis: (4) Ileus: (5) Constipation: (6) Elevated troponin: (7) Hypertension: (8) Hyperlipidemia: (9) Diabetes: (10) Gout: (11) Obstructive sleep apnea: (12) Anxiety: Supervising Physician Co-Signing Physician Notes Resident Physician Supervision Note: I independently interviewed and examined the patient and verified the loera history and physical, reviewed labs and image studies, discussed the case with the resident Dr. Alonzo and agree with the findings and care plan. Subjective Somnolent this AM. Per nursing was agitated overnight and accidentally removed NGT and IVs. IV access regained as of this AM. ROS unobtainable due to somnolence, but generally does not endorse pain anywhere. Physical Exam Vital Signs (Past 24 Hours): Last Vital Signs Temp 37.7 C H 08/26/18 15:42 Pulse 65 08/26/18 15:42 Resp 20 08/26/18 15:42 BP 161/60 H 08/26/18 15:42 Pulse Ox 94 08/26/18 15:42 Physical Exam: Vitals noted as above and within normal limits with the exception of hypertension. GENERAL: Somnolent, mildly arousable, appearing, in no distress HENT: Normocephalic, atraumatic. RESPIRATORY: Clear to auscultation. Normal work of breathing. CARDIAC: Regular rate, normal rhythm. Extremities warm and well perfused, 2+ radial pulses bilaterally; 2+ posterior tibialis pulses bilaterally. ABDOMEN: Soft, non-distended. No tenderness to palpation. Bowel sounds are normal. LOWER EXTREMITIES: Inspection of calves reveal equal size bilaterally. They are non-tender. NEURO: No focal gross focal motor deficits noted. Cogwheel rigidity noted in UE. Follows some commands. SKIN: Rash not present. No jaundice noted. Significant lesions not present. Exam as done by Fadumo Alonzo MD, [employer]. Results & Data Laboratory Results 08/26/18 08/26/18 08/26/18 Range/Units 20:24 16:47 11:46 WBC (4.8-10.8) K/uL RBC (4.7-6.1) M/uL Hgb (14.0-18.0) g/dL Hct (42-52) % MCV (80-100) fL MCH (25-34) pg MCHC (32-36) g/dL RDW Std Deviation (36.4-46.3) fL RDW Coeff of Shilpa (11.5-14.5) % Plt Count (130-400) K/uL MPV (7.4-10.4) fL Immature Gran % (Auto) % Neut % (Auto) % Lymph % (Auto) % [place] % (Auto) % Eos % (Auto) % Baso % (Auto) % Immature Gran # (Auto) (0.00-0.02) K/uL Neut # (Auto) (1.4-6.5) K/uL Lymph # (Auto) (1.2-3.4) K/uL [place] # (Auto) (0.11-0.59) K/uL Eos # (Auto) (0-0.5) K/uL Baso # (Auto) (0-0.2) K/uL Sodium (136-145) mmol/L Potassium (3.5-5.1) mmol/L Chloride (98-107) mmol/L Carbon Dioxide (21-32) mmol/L Anion Gap (3-11) BUN (7-18) mg/dl Creatinine (0.6-1.4) mg/dl Est Cr Clr Drug Dosing ml/min Est GFR ( Amer) Est GFR (Non-Af Amer) BUN/Creatinine Ratio (10-20) Glucose (70-99) mg/dl POC Glucose 83 101 H 96 (70-99) Calcium (8.5-10.1) mg/dl 08/26/18 08/26/18 08/26/18 Range/Units 06:04 05:33 05:33 WBC 6.87 (4.8-10.8) K/uL RBC 3.63 L (4.7-6.1) M/uL Hgb 11.2 L (14.0-18.0) g/dL Hct 33.4 L (42-52) % MCV 92.0 (80-100) fL MCH 30.9 (25-34) pg MCHC 33.5 (32-36) g/dL RDW Std Deviation 50.5 H (36.4-46.3) fL RDW Coeff of Shilpa 14.8 H (11.5-14.5) % Plt Count 189 (130-400) K/uL MPV 9.7 (7.4-10.4) fL Immature Gran % (Auto) 0.6 % Neut % (Auto) 71.0 % Lymph % (Auto) 10.8 % [place] % (Auto) 16.2 % Eos % (Auto) 1.3 % Baso % (Auto) 0.1 % Immature Gran # (Auto) 0.04 H (0.00-0.02) K/uL Neut # (Auto) 4.88 (1.4-6.5) K/uL Lymph # (Auto) 0.74 L (1.2-3.4) K/uL [place] # (Auto) 1.11 H (0.11-0.59) K/uL Eos # (Auto) 0.09 (0-0.5) K/uL Baso # (Auto) 0.01 (0-0.2) K/uL Sodium 138 (136-145) mmol/L Potassium 3.6 (3.5-5.1) mmol/L Chloride 105 (98-107) mmol/L Carbon Dioxide 25 (21-32) mmol/L Anion Gap 8.0 (3-11) BUN 11 (7-18) mg/dl Creatinine 0.95 (0.6-1.4) mg/dl Est Cr Clr Drug Dosing 79.9 ml/min Est GFR ( Amer) 89.1 Est GFR (Non-Af Amer) 76.9 BUN/Creatinine Ratio 11.5 (10-20) Glucose 92 (70-99) mg/dl POC Glucose 98 (70-99) Calcium 8.3 L (8.5-10.1) mg/dl 08/26/18 Range/Units 00:09 WBC (4.8-10.8) K/uL RBC (4.7-6.1) M/uL Hgb (14.0-18.0) g/dL Hct (42-52) % MCV (80-100) fL MCH (25-34) pg MCHC (32-36) g/dL RDW Std Deviation (36.4-46.3) fL RDW Coeff of Shilpa (11.5-14.5) % Plt Count (130-400) K/uL MPV (7.4-10.4) fL Immature Gran % (Auto) % Neut % (Auto) % Lymph % (Auto) % [place] % (Auto) % Eos % (Auto) % Baso % (Auto) % Immature Gran # (Auto) (0.00-0.02) K/uL Neut # (Auto) (1.4-6.5) K/uL Lymph # (Auto) (1.2-3.4) K/uL [place] # (Auto) (0.11-0.59) K/uL Eos # (Auto) (0-0.5) K/uL Baso # (Auto) (0-0.2) K/uL Sodium (136-145) mmol/L Potassium (3.5-5.1) mmol/L Chloride (98-107) mmol/L Carbon Dioxide (21-32) mmol/L Anion Gap (3-11) BUN (7-18) mg/dl Creatinine (0.6-1.4) mg/dl Est Cr Clr Drug Dosing ml/min Est GFR ( Amer) Est GFR (Non-Af Amer) BUN/Creatinine Ratio (10-20) Glucose (70-99) mg/dl POC Glucose 103 H (70-99) Calcium (8.5-10.1) mg/dl Medications Administered Current Inpatient Medications Acetaminophen (Tylenol) 650 mg PO Q4H PRN PRN Reason: Pain Stop: 09/20/18 20:59 Last Admin: 08/26/18 00:07 Dose: 650 mg Documented by: Allopurinol (Zyloprim) 300 mg PO QAM [facility] Stop: 09/22/18 08:59 Last Admin: 08/26/18 08:33 Dose: 300 mg Documented by: Aspirin (Ecotrin Ectab) 81 mg PO QAM [facility] Stop: 09/22/18 08:59 Atorvastatin Calcium (Lipitor) 80 mg PO QAM [facility] Stop: 09/22/18 08:59 Last Admin: 08/26/18 08:33 Dose: 80 mg Documented by: Bisacodyl (Dulcolax) 5 mg PO QPM [facility] Stop: 09/23/18 20:59 Last Admin: 08/26/18 20:04 Dose: 5 mg Documented by: Carbidopa/Levodopa (Sinemet 25/100 Mg) 2 tab PO 0730,1130,1500 [facility] Stop: 09/21/18 07:29 Last Admin: 08/26/18 14:17 Dose: 2 tab Documented by: Carbidopa/Levodopa (Sinemet 25/100 Mg) 1 tab PO DAILY@1900 [facility] Stop: 09/21/18 18:59 Last Admin: 08/26/18 20:03 Dose: 1 tab Documented by: Carbidopa/Levodopa (Sinement Cr 25/100mg) 1 tab PO DAILY@2300 [facility] Stop: 09/20/18 22:59 Last Admin: 08/25/18 23:20 Dose: 1 tab Documented by: Cephalexin HCl (Keflex) 500 mg PO TID [facility] Stop: 09/01/18 14:24 Last Admin: 08/26/18 20:04 Dose: 500 mg Documented by: Clopidogrel Bisulfate (Plavix) 75 mg PO [facility] Stop: 09/22/18 08:59 Cyanocobalamin (Vitamin B-12) 2,000 mcg PO [facility] Stop: 09/22/18 08:59 Last Admin: 08/26/18 08:33 Dose: 2,000 mcg Documented by: Dextrose (Dextrose 50%) 25 - 50 ml IV UD PRN; Protocol PRN Reason: Hypoglycemia Protocol Stop: 09/21/18 15:59 Gabapentin (Neurontin) 300 mg PO TID [facility] Stop: 09/24/18 20:59 Last Admin: 08/26/18 20:04 Dose: 300 mg Documented by: Glucagon (Glucagen) 1 mg SQ UD PRN; Protocol PRN Reason: Hypoglycemia Protocol Stop: 09/21/18 15:59 Glucose (Glucose 40%) 15 - 30 gm PO UD PRN; Protocol PRN Reason: Hypoglycemia Protocol Stop: 09/21/18 15:59 Glucose (Dex4 Glucose) 4 - 8 tabs PO UD PRN; Protocol PRN Reason: Hypoglycemia Protocol Stop: 09/21/18 15:59 Potassium Chloride 10 meq/ (Sodium Chloride) 1,005 mls @ 65 mls/hr IV .[id number] [facility] Stop: 09/20/18 19:59 Last Admin: 08/26/18 08:37 Dose: 65 mls/hr Documented by: Insulin Aspart (Novolog Flexpen) 0 units SC ACHS [facility] Stop: 09/25/18 16:59 Last Admin: 08/26/18 18:20 Dose: Not Given Documented by: Lansoprazole (Prevacid) 30 mg NG BID [facility] Stop: 09/24/18 20:59 Last Admin: 08/26/18 20:05 Dose: 30 mg Documented by: [facility]) [facility] [facility]: 09/22/18 08:59 Last Admin: 08/26/18 08:32 Dose: 5 mg Documented by: Methylnaltrexone [place] (Relistor) 12 mg SQ Q2D [facility] Stop: 09/25/18 16:59 Last Admin: 08/26/18 18:16 Dose: 12 mg Documented by: Metoprolol Succinate (Toprol Xl) 25 mg PO QAM [facility] Stop: 09/22/18 08:59 Last Admin: 08/26/18 08:33 Dose: 25 mg Documented by: Miscellaneous (Carbohydrates For Hypoglycemia) 15 - 30 gm PO UD PRN PRN Reason: Hypoglycemia Treatment Stop: 09/21/18 15:59 Polyethylene Glycol (Miralax Powder Packet) 17 gm PO BID [facility] Stop: 09/23/18 20:59 Last Admin: 08/26/18 20:03 Dose: 17 gm Documented by: Ranitidine HCl (Zantac) 150 mg PO BID [facility] Stop: 09/21/18 20:59 Last Admin: 08/26/18 20:05 Dose: 150 mg Documented by: Sertraline HCl (Zoloft) 50 mg PO QAM [facility] Stop: 09/22/18 08:59 Last Admin: 08/26/18 08:33 Dose: 50 mg Documented by: Vitamin D (Vitamin D3) 1,000 units PO QA [facility] Stop: 09/22/18 08:59 Last Admin: 08/26/18 08:33 Dose: 1,000 units Documented by: Resident Activity Tracking Resident Involvement: Resident Care Provided Care Provided: Adult Hospital Medicine (1) Diabetes Diabetes mellitus complication status: without complication Diabetes mellitus oil heaterman insulin use: without oil heaterman use Diabetes mellitus type: type 2 Qualified Code(s): E11.9 - Type 2 diabetes mellitus without complications (2) Gout Gout etiology: unspecified cause Gout site: unspecified site (3) Cellulitis Laterality: left Site of cellulitis: extremity Site of cellulitis of extremity: lower extremity Qualified Code(s): L03.116 - Cellulitis of left lower limb (4) Hypertension Hypertension type: essential hypertension Qualified Code(s): I10 - Essential (primary) hypertension
[2018-08-26] MEDS: METHYLNALTREXONE BROMIDE 12 MG/0.6 ML VIAL SQ SCH (18:16)
[2018-08-26] MEDS: BISACODYL 5 MG TABEC PO SCH (20:04)
[2018-08-26] MEDS: CARBIDOPA/LEVODOPA 25/100MG EXT REL TAB PO SCH (22:30)
--- NOTE | 2018-08-27 07:14 | XRay Report ---
KUB HISTORY: Acute generalized abdominal pain with ileus ileus COMPARISON: Abdominal radiographs 08/26/2018 FINDINGS: Air distended loops of large and small bowel redemonstrated with large bowel loops measurin g up to 8.87 m, previously 9.0 cm. Decreased gastric distention. The overall degree of colonic disten tion has slightly improved. No definite urolith. Degenerative changes of the spine, hips and pelvis. No definite pneumatosis or pneumoperitoneum. IMPRESSION: 1. Persistent yet mildly improved ileus pattern. 2. Decreased gastric distention. 3. No pneumatosis or pneumoperitoneum identified. Electronically signed by: Eren Evans M.D. 08/27/2018 7:13 AM
[2018-08-27] MEDS: SERTRALINE HCL 50 MG TABLET PO SCH (08:16)
[2018-08-27] MEDS: CARBIDOPA/LEVODOPA 25/100MG TAB PO SCH ×5 (08:16→21:40)
[2018-08-27] MEDS: CHOLECALCIFEROL 1,000 UNITS TAB PO SCH (08:17)
[2018-08-27] MEDS: CYANOCOBALAMIN 500 MCG TABLET (VITAMIN B-12) PO SCH (08:17)
[2018-08-27] MEDS: ALLOPURINOL 300 MG TAB PO SCH (08:17)
[2018-08-27] MEDS: LANSOPRAZOLE 30 MG SOLTAB NG SCH ×2 (08:17→21:44)
[2018-08-27] MEDS: LISINOPRIL 5 MG TAB PO SCH (08:17)
[2018-08-27] MEDS: cephALEXin 500 MG CAP PO SCH ×3 (08:17→21:41)
[2018-08-27] MEDS: METOPROLOL SUCC 25MG EXT REL TAB PO SCH (08:18)
[2018-08-27] MEDS: POLYETHYLENE (MIRALAX) 17 GM PACK PO SCH ×2 (08:18→21:40)
[2018-08-27] MEDS: ATORVASTATIN 40 MG TAB PO SCH (08:18)
[2018-08-27] MEDS: GABAPENTIN 300 MG CAP PO SCH ×3 (08:18→21:41)
[2018-08-27] MEDS: INSULIN ASPART 100 UNITS/ML 3 ML PEN SC SCH ×4 (08:22→21:43)
--- NOTE | 2018-08-27 10:13 | Family Medicine Progress Note ---
Date of Service August 27, 2018 Assessment & Plan (1) Parkinson disease: 77-year-old male was admitted on 21 August 2018 for hallucinations, difficulty walking, abdominal distention, and lower extremity cellulitis. #Left lower extremity cellulitis: -May be related to a fall two weeks prior to admission that resulted in a laceration of the leg. -03Apr started on Ancef but then converted to Keflex TID. Clinically improving. Asymptomatic. Will continue for 7 days total to be completed 10Apr. #Coffee-ground emesis, abdominal distention, ileus: -Noted in a.m. on 05Apr. GI consulted (see related notes). -Ileus possibly due to antiparkinsonian medications, DM. -Appreciate GI recs -DC IV Protonix BID, continue PO prevacid BID and ranitidine 150mg BID, for 4 weeks total. -Erythromycin given x 5 doses, minimal effect. -Initially placed on NG tube to low intermittent suction - self DCd, not replaced. Stable as diet advancing. -Serial abdominal XR 07Apr concerning for pseudoobstruction, not worsening on subsequent. -GI has signed off 08Apr. - C. difficile testing pending, not collected due to difficulty with incontinent of stool. Per nursing, 1-2 soft/loose BMs per day. Order cancelled. - On gabapentin (with renal monitoring) for leg pains. -Since gabapentin may be contributing to these abdominal issues, freq decr from QID to TID. -Patient has been on this medication for years, so suspect further tapering (if tolerated by patient) slowly every couple of weeks. -Overall resolved. Stable hemoglobin. Following clinically. #Chronic constipation: -Restarted his home MiraLAX and Dulcolax. -stooling -To continue q48h use of relistor - improving. #Elevated troponin: PMH of STEMI, ischemic CM. -Remains asymptomatic here. -on plavix since Apr 2018 NSTEMI, rec to cont for 1 year - held here initially due to GIB since Apr. -Trop peaked at 3.14, since trending down. EKG with no clear ischemia or dynamic changes. -Still suspect demand ischemia. Heparin contraindicated due to GI bleed. -05Apr echocardiogram noted EF 30-35% with no significant changes compared to April 2018 (see full reports). Will continue with previous plan of medical management, as patient has previously not wanted a cardiac cath. -if H&H stable tomorrow with advancing diet, think it reasonable to resume ASA and plavix given high risk and elev trop during admission. #Hallucination in setting of Parkinson's disease: -Neurology consulted, see related notes until sign off 05Apr. Hallucinations thought to be related to Parkinson's, dementia, and/or Sinemet. Also may have been worsened by his concurrent cellulitis and mild dehydration. -Plan to continue Sinemet 25/100 mg 2 tablets 730/1130/1500, 1 tablet 1900, CR 25/100 mg 1 tablet 2300, and regular follow up in outpatient. -Resolved. FEN/GI: clears. AAT. DVT ppx: held due to GIB CODE STATUS: FULL DISPO: med surg. To [facility], family strongly advocating this. CM ongoing assistance. Ongoing medical issues: #Hypertension, hyperlipidemia: Continue home atorvastatin, lisinopril, and metoprolol. -Holding home aspirin and Plavix due to GI bleed. See above. #DM Type 2: Hold his home metformin while inpatient. On insulin sliding scale. #Gout: Continue home allopurinol. #LEN: on CPAP. #Anxiety: Continue home sertraline. (2) Cellulitis: (3) Coffee ground emesis: (4) Ileus: (5) Constipation: (6) Elevated troponin: (7) Hypertension: (8) Hyperlipidemia: (9) Diabetes: (10) Gout: (11) Obstructive sleep apnea: (12) Anxiety: Supervising Physician Co-Signing Physician Notes Resident Physician Supervision Note: I independently interviewed and examined the patient and verified the loera history and physical, reviewed labs and image studies, discussed the case with the resident Dr. Alonzo and agree with the findings and care plan. Subjective Pt much more awake this AM. Endorses no events overnight. Nursing corroborates. 1-2 BMs yesterday afternoon. Tolerating clears, no emesis or nausea or abdominal pain. Denies LE pain. Review of Systems All systems reviewed & are unremarkable except as noted in HPI & below Physical Exam Vital Signs (Past 24 Hours): Last Vital Signs Temp 36.9 C 08/27/18 07:22 Pulse 70 08/27/18 07:22 Resp 16 08/27/18 07:22 BP 150/77 H 08/27/18 07:22 Pulse Ox 94 04/09/19 07:22 Physical Exam: Vitals noted as above and within normal limits with the exception of hypertension. GENERAL: Much more awake today. In no distress. Eating breakfast, sitting up in bed. HENT: Normocephalic, atraumatic. RESPIRATORY: Clear to auscultation. Normal work of breathing. CARDIAC: Regular rate, normal rhythm. Extremities warm and well perfused, 2+ radial pulses bilaterally; 2+ posterior tibialis pulses bilaterally. ABDOMEN: Soft, non-distended. No tenderness to palpation. Bowel sounds are normal. LOWER EXTREMITIES: Inspection of calves reveal equal size bilaterally. They are non-tender. No redness or warmth. Waffle boot in place. NEURO: No focal gross focal motor deficits noted. Follows all commands. SKIN: Rash not present. No jaundice noted. Significant lesions not present. Exam as done by Fadumo Alonzo MD, [employer]. Results & Data Medications Administered Current Inpatient Medications Acetaminophen (Tylenol) 650 mg PO Q4H PRN PRN Reason: Pain Stop: 09/20/18 20:59 Last Admin: 08/26/18 00:07 Dose: 650 mg Documented by: Allopurinol (Zyloprim) 300 mg PO QAM [facility] Stop: 09/22/18 08:59 Last Admin: 08/27/18 08:17 Dose: 300 mg Documented by: Aspirin (Ecotrin Ectab) 81 mg PO QAM [facility] Stop: 09/22/18 08:59 Atorvastatin Calcium (Lipitor) 80 mg PO QAM [facility] Stop: 09/22/18 08:59 Last Admin: 08/27/18 08:18 Dose: 80 mg Documented by: Bisacodyl (Dulcolax) 5 mg PO QPM [facility] Stop: 09/23/18 20:59 Last Admin: 08/26/18 20:04 Dose: 5 mg Documented by: Carbidopa/Levodopa (Sinemet 25/100 Mg) 2 tab PO 0730,1130,1500 [facility] Stop: 09/21/18 07:29 Last Admin: 08/27/18 08:16 Dose: 2 tab Documented by: Carbidopa/Levodopa (Sinemet 25/100 Mg) 1 tab PO DAILY@1900 [facility] Stop: 09/21/18 18:59 Last Admin: 08/26/18 20:03 Dose: 1 tab Documented by: Carbidopa/Levodopa (Sinement Cr 25/100mg) 1 tab PO DAILY@2300 [facility] Stop: 09/20/18 22:59 Last Admin: 08/26/18 22:30 Dose: 1 tab Documented by: Cephalexin HCl (Keflex) 500 mg PO TID [facility] Stop: 09/01/18 14:24 Last Admin: 08/27/18 08:17 Dose: 500 mg Documented by: Clopidogrel Bisulfate (Plavix) 75 mg PO QAM [facility] Stop: 09/22/18 08:59 Cyanocobalamin (Vitamin B-12) 2,000 mcg PO QAM [facility] Stop: 09/22/18 08:59 Last Admin: 08/27/18 08:17 Dose: 2,000 mcg Documented by: Dextrose (Dextrose 50%) 25 - 50 ml IV UD PRN; Protocol PRN Reason: Hypoglycemia Protocol Stop: 09/21/18 15:59 Gabapentin (Neurontin) 300 mg PO TID [facility] Stop: 09/24/18 20:59 Last Admin: 08/27/18 08:18 Dose: 300 mg Documented by: Glucagon (Glucagen) 1 mg SQ UD PRN; Protocol PRN Reason: Hypoglycemia Protocol Stop: 09/21/18 15:59 Glucose (Glucose 40%) 15 - 30 gm PO UD PRN; Protocol PRN Reason: Hypoglycemia Protocol Stop: 09/21/18 15:59 Glucose (Dex4 Glucose) 4 - 8 tabs PO UD PRN; Protocol PRN Reason: Hypoglycemia Protocol Stop: 09/21/18 15:59 Potassium Chloride 10 meq/ (Sodium Chloride) 1,005 mls @ 65 mls/hr IV .[id number] [facility] Stop: 09/20/18 19:59 Last Admin: 08/26/18 22:44 Dose: 65 mls/hr Documented by: Insulin Aspart (Novolog Flexpen) 0 units SC ACHS [facility] Stop: 09/25/18 16:59 Last Admin: 08/27/18 08:22 Dose: Not Given Documented by: Lansoprazole (Prevacid) 30 mg NG BID [facility] Stop: 09/24/18 20:59 Last Admin: 08/27/18 08:17 Dose: 30 mg Documented by: [facility]inopril ([facility]estril) [facility] Stop: 09/22/18 08:59 Last Admin: 08/27/18 08:17 Dose: 5 mg Documented by: Methylnaltrexone [place] (Relistor) 12 mg SQ Q2D [facility] Stop: 09/25/18 16:59 Last Admin: 08/26/18 18:16 Dose: 12 mg Documented by: Metoprolol Succinate (Toprol Xl) 25 mg PO QAM [facility] Stop: 09/22/18 08:59 Last Admin: 08/27/18 08:18 Dose: 25 mg Documented by: Miscellaneous (Carbohydrates For Hypoglycemia) 15 - 30 gm PO UD PRN PRN Reason: Hypoglycemia Treatment Stop: 09/21/18 15:59 Polyethylene Glycol (Miralax Powder Packet) 17 gm PO BID [facility] Stop: 09/23/18 20:59 Last Admin: 08/27/18 08:18 Dose: 17 gm Documented by: Ranitidine HCl (Zantac) 150 mg PO BID [facility] Stop: 09/21/18 20:59 Last Admin: 08/27/18 08:17 Dose: 150 mg Documented by: Sertraline HCl (Zoloft) [facility] [place] Stop: 09/22/18 08:59 Last Admin: 08/27/18 08:16 Dose: 50 mg Documented by: Vitamin D (Vitamin D3) 1,000 units PO QAM [facility] Stop: 09/22/18 08:59 Last Admin: 08/27/18 08:17 Dose: 1,000 units Documented by: Resident Activity Tracking Resident Involvement: Resident Care Provided Care Provided: Adult Hospital Medicine (1) Diabetes Diabetes mellitus complication status: without complication Diabetes mellitus terminal supervisor insulin use: without terminal supervisor use Diabetes mellitus type: type 2 Qualified Code(s): E11.9 - Type 2 diabetes mellitus without complications (2) Gout Gout etiology: unspecified cause Gout site: unspecified site (3) Cellulitis Laterality: left Site of cellulitis: extremity Site of cellulitis of extremity: lower extremity Qualified Code(s): L03.116 - Cellulitis of left lower limb (4) Hypertension Hypertension type: essential hypertension Qualified Code(s): I10 - Essential (primary) hypertension
[2018-08-27] MEDS: POTASSIUM CHLORIDE 10 MEQ in SODIUM CHLORIDE 0.45 % 1,000 ML IV SCH (14:25)
[2018-08-27] MEDS: BISACODYL 5 MG TABEC PO SCH (21:42)
[2018-08-27] MEDS: CARBIDOPA/LEVODOPA 25/100MG EXT REL TAB PO SCH (21:44)
[2018-08-28] MEDS: POTASSIUM CHLORIDE 10 MEQ in SODIUM CHLORIDE 0.45 % 1,000 ML IV SCH (05:01)
[2018-08-28 05:41] LABS: Hematocrit (blood only) 34.6 % (42-52); Hemoglobin 11.5 g/dL (14.0-18.0); Mean Corpuscular Hgb Conc 33.2 g/dL (32-36); Mean Corpuscular Volume 92.3 fL (80-100); Mean Platelet Volume 9.6 fL (7.4-10.4); Platelet Count 194 K/uL (130-400); RDW Coefficient of Variation 14.7 % (11.5-14.5); RDW Standard Deviation 49.9 fL (36.4-46.3); Red Blood Count 3.75 M/uL (4.7-6.1); White Blood Count 5.09 K/uL (4.8-10.8)
[2018-08-28] MEDS: ATORVASTATIN 40 MG TAB PO SCH (07:32)
[2018-08-28] MEDS: ALLOPURINOL 300 MG TAB PO SCH (07:32)
[2018-08-28] MEDS: GABAPENTIN 300 MG CAP PO SCH ×3 (07:33→21:36)
[2018-08-28] MEDS: METOPROLOL SUCC 25MG EXT REL TAB PO SCH (07:33)
[2018-08-28] MEDS: CHOLECALCIFEROL 1,000 UNITS TAB PO SCH (07:33)
[2018-08-28] MEDS: SERTRALINE HCL 50 MG TABLET PO SCH (07:34)
[2018-08-28] MEDS: LISINOPRIL 5 MG TAB PO SCH (07:34)
[2018-08-28] MEDS: CARBIDOPA/LEVODOPA 25/100MG TAB PO SCH ×4 (07:34→19:15)
[2018-08-28] MEDS: CYANOCOBALAMIN 500 MCG TABLET (VITAMIN B-12) PO SCH (07:35)
[2018-08-28] MEDS: cephALEXin 500 MG CAP PO SCH ×3 (07:35→21:35)
[2018-08-28] MEDS: LANSOPRAZOLE 30 MG SOLTAB NG SCH (07:35)
[2018-08-28] MEDS: POLYETHYLENE (MIRALAX) 17 GM PACK PO SCH ×2 (07:36→21:35)
[2018-08-28] MEDS: INSULIN ASPART 100 UNITS/ML 3 ML PEN SC SCH ×4 (08:52→21:38)
--- NOTE | 2018-08-28 12:03 | Family Medicine Progress Note ---
Date of Service August 28, 2018 Assessment & Plan (1) Parkinson disease: 77-year-old male was admitted on 21 August 2018 for hallucinations, difficulty walking, abdominal distention, and lower extremity cellulitis. #Left lower extremity cellulitis: -May be related to a fall two weeks prior to admission that resulted in a laceration of the leg. -03Apr started on Ancef - then converted to Keflex TID. -Clinically improving. Asymptomatic. Finished total of 7 days. #Coffee-ground emesis, abdominal distention, ileus: -Noted in a.m. on 05Apr. GI consulted (see related notes). -Ileus possibly due to antiparkinsonian medications, DM. -Appreciate GI recs -DC IV Protonix BID, continue PO prevacid BID and ranitidine 150mg BID, for 4 weeks total. -Erythromycin given x 5 doses, minimal effect. -Initially placed on NG tube to low intermittent suction - self DCd, not replaced. Stable as diet advancing. -Serial abdominal XR 07Apr concerning for pseudoobstruction, not worsening on subsequent. -GI has signed off 08Apr. - C. difficile testing pending, not collected due to difficulty with incontinent of stool. Per nursing, 1-2 soft/loose BMs per day. Order cancelled. - On gabapentin (with renal monitoring) for leg pains. -Since gabapentin may be contributing to these abdominal issues, freq decr from QID to TID. -Patient has been on this medication for years, so suspect further tapering (if tolerated by patient) slowly every couple of weeks. -Overall resolved. Stable hemoglobin. Advance diet as tolerated. Following clinically. #Chronic constipation: -Restarted his home MiraLAX and Dulcolax. -improved -To continue q48h use of relistor - improving. #Elevated troponin: PMH of STEMI, ischemic CM. -Remains asymptomatic here. -on plavix since Apr 2018 NSTEMI, rec to cont for 1 year - held here initially due to GIB since Apr. -Trop peaked at 3.14, since trending down. EKG with no clear ischemia or dynamic changes. -05Apr echocardiogram noted EF 30-35% with no significant changes compared to April 2018 (see full reports). -Suspect demand ischemia. Heparin contraindicated due to GI bleed. -Will continue with previous plan of medical management, as patient has previously not wanted a cardiac cath. -H&H stable x4d, reasonable to resume ASA and plavix given high risk and elev trop during admission. #Hallucination in setting of Parkinson's disease: -Neurology consulted, see related notes until sign off 05Apr. Hallucinations thought to be related to Parkinson's, dementia, and/or Sinemet. Also may have been worsened by his concurrent cellulitis and mild dehydration. -Plan to continue Sinemet 25/100 mg 2 tablets 730/1130/1500, 1 tablet 1900, CR 25/100 mg 1 tablet 2300, and regular follow up in outpatient. -Resolved. FEN/GI: full clears, T2DM. AAT. DVT ppx: held initially due to GIB. SCDs, ambulate as able. To resume ASA and plavix 11Apr AM. CODE STATUS: FULL DISPO: med surg. To [facility], family strongly advocating this. CM ongoing assistance. Ongoing medical issues: #Hypertension, hyperlipidemia: Continue home atorvastatin, lisinopril, and meto prolol. -Resume home Plavix/ASA 11Apr. Initially held due to GI bleed. See above. #DM Type 2: Hold his home metformin while inpatient. On insulin sliding scale. #Gout: Continue home allopurinol. #LEN: on CPAP. #Anxiety: Continue home sertraline. (2) Cellulitis: (3) Coffee ground emesis: (4) Ileus: (5) Constipation: (6) Elevated troponin: (7) Hypertension: (8) Hyperlipidemia: (9) Diabetes: (10) Gout: (11) Obstructive sleep apnea: (12) Anxiety: Supervising Physician Co-Signing Physician Notes Resident Physician Supervision Note: I independently interviewed and examined the patient and verified the loera history and physical, reviewed labs and image studies, discussed the case with the resident Dr. Alonzo and agree with the findings and care plan. Subjective Pt is seen while sitting up in chair today. Daughter accompanies. Still working on [employer] referral. Per nursing no acute events overnight, stooling appropriately. Ambulating with assistance. Tolerating clears. Does not endorse any other complaints. Review of Systems All systems reviewed & are unremarkable except as noted in HPI & below Physical Exam Vital Signs (Past 24 Hours): Last Vital Signs Temp 36.8 C 08/28/18 07:47 Pulse 71 08/28/18 07:47 Resp 18 08/28/18 07:47 BP 162/86 H 08/28/18 07:47 Pulse Ox 93 08/28/18 07:47 Physical Exam: Vitals noted and reviewed, as above GENERAL: no acute distress, much more alert mentation improving. HEAD: normocephalic atraumatic ENT: sclerae normal, trachea midline RESP: normal work of breathing CV: regular rate and rhythm ABDOMEN: nondistended SKIN: no rashes or jaundice LOWER EXTREMITIES: Inspection of calves reveal equal size bilaterally. No redness. PSYCH: appropriate mood and affect. Results & Data Laboratory Results 08/28/18 08/28/18 08/28/18 Range/Units 16:44 11:38 07:35 WBC (4.8-10.8) K/uL RBC (4.7-6.1) M/uL Hgb (14.0-18.0) g/dL Hct (42-52) % MCV (80-100) fL MCH (25-34) pg MCHC (32-36) g/dL RDW Std Deviation (36.4-46.3) fL RDW Coeff of Shilpa (11.5-14.5) % Plt Count (130-400) K/uL MPV (7.4-10.4) fL POC Glucose 118 H 105 H 96 (70-99) 08/28/18 08/27/18 Range/Units 05:11 19:46 WBC 5.09 (4.8-10.8) K/uL RBC 3.75 L (4.7-6.1) M/uL Hgb 11.5 L (14.0-18.0) g/dL Hct 34.6 L (42-52) % MCV 92.3 (80-100) fL MCH 30.7 (25-34) pg MCHC 33.2 (32-36) g/dL RDW Std Deviation 49.9 H (36.4-46.3) fL RDW Coeff of Shilpa 14.7 H (11.5-14.5) % Plt Count 194 (130-400) K/uL MPV 9.6 (7.4-10.4) fL POC Glucose 114 H (70-99) Medications Administered Current Inpatient Medications Acetaminophen (Tylenol) 650 mg PO Q4H PRN PRN Reason: Pain Stop: 09/20/18 20:59 Last Admin: 08/26/18 00:07 Dose: 650 mg Documented by: Allopurinol (Zyloprim) 300 mg PO QAM [facility] Stop: 09/22/18 08:59 Last Admin: 08/28/18 07:32 Dose: 300 mg Documented by: Aspirin (Ecotrin Ectab) [facility] [place] Stop: 09/22/18 08:59 Atorvastatin Calcium (Lipitor) 80 [facility] [place] Stop: 09/22/18 08:59 Last Admin: 08/28/18 07:32 Dose: 80 mg Documented by: Bisacodyl (Dulcolax) 5 mg PO QPM [facility] Stop: 09/23/18 20:59 Last Admin: 08/27/18 21:42 Dose: 5 mg Documented by: Carbidopa/Levodopa (Sinemet 25/100 Mg) 2 tab PO 0730,1130,1500 [facility] Stop: 09/21/18 07:29 Last Admin: 08/28/18 14:33 Dose: 2 tab Documented by: Carbidopa/Levodopa (Sinemet 25/100 Mg) 1 tab PO DAILY@1900 [facility] Stop: 09/21/18 18:59 Last Admin: 08/27/18 18:27 Dose: 1 tab Documented by: Carbidopa/Levodopa (Sinement Cr 25/100mg) 1 tab PO DAILY@2300 [facility] Stop: 09/20/18 22:59 Last Admin: 08/27/18 21:44 Dose: 1 tab Documented by: Cephalexin HCl (Keflex) 500 mg PO TID [facility] Stop: 08/28/18 23:00 Last Admin: 08/28/18 14:33 Dose: 500 mg Documented by: Clopidogrel Bisulfate (Plavix) 75 mg PO [facility] Stop: 09/22/18 08:59 Cyanocobalamin (Vitamin B-12) 2,000 mcg PO [facility] Stop: 09/22/18 08:59 Last Admin: 08/28/18 07:35 Dose: 2,000 mcg Documented by: Dextrose (Dextrose 50%) 25 - 50 ml IV UD PRN; Protocol PRN Reason: Hypoglycemia Protocol Stop: 09/21/18 15:59 Gabapentin (Neurontin) 300 mg PO TID [facility] Stop: 09/24/18 20:59 Last Admin: 08/28/18 14:33 Dose: 300 mg Documented by: Glucagon (Glucagen) 1 mg SQ UD PRN; Protocol PRN Reason: Hypoglycemia Protocol Stop: 09/21/18 15:59 Glucose (Glucose 40%) 15 - 30 gm PO UD PRN; Protocol PRN Reason: Hypoglycemia Protocol Stop: 09/21/18 15:59 Glucose (Dex4 Glucose) 4 - 8 tabs PO UD PRN; Protocol PRN Reason: Hypoglycemia Protocol Stop: 09/21/18 15:59 Insulin Aspart (Novolog Flexpen) 0 units SC ACHS [facility] Stop: 09/25/18 16:59 Last Admin: 08/28/18 12:55 Dose: Not Given Documented by: Lansoprazole (Prevacid) 30 mg PO BID [facility] Stop: 09/27/18 20:59 Lisinopril (Zestril) 5 mg PO QAM [facility] Stop: 09/22/18 08:59 Last Admin: 08/28/18 07:34 Dose: 5 mg Documented by: Methylnaltrexone [place] (Relistor) 12 mg SQ Q2D [facility] Stop: 09/25/18 16:59 Last Admin: 08/28/18 15:56 Dose: 12 mg Documented by: Metoprolol Succinate (Toprol Xl) 25 mg PO QAM [facility] Stop: 09/22/18 08:59 Last Admin: 08/28/18 07:33 Dose: 25 mg Documented by: Miscellaneous (Carbohydrates For Hypoglycemia) 15 - 30 gm PO UD PRN PRN Reason: Hypoglycemia Treatment Stop: 09/21/18 15:59 Polyethylene Glycol (Miralax Powder Packet) 17 gm PO BID [facility] Stop: 09/23/18 20:59 Last Admin: 08/28/18 07:36 Dose: 17 gm Documented by: Ranitidine HCl (Zantac) 150 mg PO BID [facility] Stop: 09/21/18 20:59 Last Admin: 08/28/18 07:34 Dose: 150 mg Documented by: Sertraline HCl (Zoloft) 50 mg PO QAM [facility] Stop: 09/22/18 08:59 Last Admin: 08/28/18 07:34 Dose: 50 mg Documented by: Vitamin D (Vitamin D3) 1,000 units PO QAM [facility] Stop: 09/22/18 08:59 Last Admin: 08/28/18 07:33 Dose: 1,000 units Documented by: Resident Activity Tracking Resident Involvement: Resident Care Provided Care Provided: Adult Hospital Medicine (1) Diabetes Diabetes mellitus complication status: without complication Diabetes mellitus detention insulin use: without detention use Diabetes mellitus type: type 2 Qualified Code(s): E11.9 - Type 2 diabetes mellitus without complications (2) Gout Gout etiology: unspecified cause Gout site: unspecified site (3) Cellulitis Laterality: left Site of cellulitis: extremity Site of cellulitis of extremity: lower extremity Qualified Code(s): L03.116 - Cellulitis of left lower limb (4) Hypertension Hypertension type: essential hypertension Qualified Code(s): I10 - Essential (primary) hypertension
[2018-08-28] MEDS: METHYLNALTREXONE BROMIDE 12 MG/0.6 ML VIAL SQ SCH (15:56)
[2018-08-28] MEDS: BISACODYL 5 MG TABEC PO SCH (21:34)
[2018-08-28] MEDS: LANSOPRAZOLE 30 MG SOLTAB PO SCH (21:37)
[2018-08-28] MEDS: CARBIDOPA/LEVODOPA 25/100MG EXT REL TAB PO SCH (21:40)
[2018-08-29] MEDS: CHOLECALCIFEROL 1,000 UNITS TAB PO SCH (07:49)
[2018-08-29] MEDS: LANSOPRAZOLE 30 MG SOLTAB PO SCH ×2 (07:49→21:16)
[2018-08-29] MEDS: ALLOPURINOL 300 MG TAB PO SCH (07:49)
[2018-08-29] MEDS: CYANOCOBALAMIN 500 MCG TABLET (VITAMIN B-12) PO SCH (07:49)
[2018-08-29] MEDS: ATORVASTATIN 40 MG TAB PO SCH (07:49)
[2018-08-29] MEDS: GABAPENTIN 300 MG CAP PO SCH ×3 (07:50→21:16)
[2018-08-29] MEDS: METOPROLOL SUCC 25MG EXT REL TAB PO SCH (07:50)
[2018-08-29] MEDS: CARBIDOPA/LEVODOPA 25/100MG TAB PO SCH ×4 (07:50→19:39)
[2018-08-29] MEDS: SERTRALINE HCL 50 MG TABLET PO SCH (07:51)
[2018-08-29] MEDS: LISINOPRIL 5 MG TAB PO SCH (07:51)
[2018-08-29] MEDS: POLYETHYLENE (MIRALAX) 17 GM PACK PO SCH ×2 (07:51→21:16)
[2018-08-29] MEDS: INSULIN ASPART 100 UNITS/ML 3 ML PEN SC SCH ×4 (09:03→21:16)
[2018-08-29] MEDS: ASPIRIN 81 MG ECTAB PO SCH (11:07)
[2018-08-29] MEDS: CLOPIDOGREL BISULFATE 75 MG TAB PO SCH (11:08)
--- NOTE | 2018-08-29 11:55 | Family Medicine Progress Note ---
Date of Service August 29, 2018 Assessment & Plan (1) Parkinson disease: 77-year-old male was admitted on 21 August 2018 for hallucinations, difficulty walking, abdominal distention, and lower extremity cellulitis. #Coffee-ground emesis, abdominal distention, ileus: -Noted in a.m. on 05Apr. GI consulted (see related notes). -Ileus possibly due to antiparkinsonian medications, DM. -Appreciate GI recs -DC IV Protonix BID, continue PO prevacid BID and ranitidine 150mg BID, for 4 weeks total. -Erythromycin given x 5 doses, minimal effect. -Initially placed on NG tube to low intermittent suction - self DCd, not replaced. Stable as diet advancing. -Serial abdominal XR 07Apr concerning for pseudoobstruction, not worsening on subsequent. -GI has signed off 08Apr. - C. difficile testing pending, not collected due to difficulty with incontinent of stool. Per nursing, 1-2 soft/loose BMs per day. Order cancelled. - On gabapentin (with renal monitoring) for leg pains. -Since gabapentin may be contributing to these abdominal issues, freq decr from QID to TID. -Patient has been on this medication for years, so suspect further tapering (if tolerated by patient) slowly every couple of weeks. -Overall resolved. Stable hemoglobin. Advance diet as tolerated. Following clinically. #Chronic constipation: -Restarted his home MiraLAX and Dulcolax. -improved -To continue q48h use of relistor - improving. #Hallucination in setting of Parkinson's disease: -Neurology consulted, see related notes until sign off 05Apr. Hallucinations thought to be related to Parkinson's, dementia, and/or Sinemet. Also may have been worsened by his concurrent cellulitis and mild dehydration. -Plan to continue Sinemet 25/100 mg 2 tablets 730/1130/1500, 1 tablet 1900, CR 25/100 mg 1 tablet 2300, and regular follow up in outpatient. -Resolved. #Elevated troponin: PMH of STEMI, ischemic CM. -Remains asymptomatic here. -on plavix since Apr 2018 NSTEMI, rec to cont for 1 year - held here initially due to GIB since 05Apr. -Trop peaked at 3.14, since trending down. EKG with no clear ischemia or dynamic changes. -05Apr echocardiogram noted EF 30-35% with no significant changes compared to April 2018 (see full reports). -Suspect demand ischemia. Heparin contraindicated due to GI bleed. -Will continue with previous plan of medical management, as patient has previously not wanted a cardiac cath. -H&H stable, 11Apr: resume ASA and plavix given high risk and elev trop during admission. #Left lower extremity cellulitis: -May be related to a fall two weeks prior to admission that resulted in a laceration of the leg. -03Apr started on Ancef - then converted to Keflex TID. -Clinically improving. Asymptomatic. Finished total of 7 days. FEN/GI: T2DM, heart healthy diet, advancing as tolerated. DVT ppx: held initially due to GIB. SCDs, ambulate as able. Resume ASA and plavix 11Apr AM. CODE STATUS: FULL DISPO: med surg. To [facility], family strongly advocating this. CM ongoing assistance. Ongoing medical issues: #Hypertension, hyperlipidemia: Continue home atorvastatin, lisinopril, and metoprolol. -Resume home Plavix/ASA 11Apr. Initially held due to GI bleed, now resolved. See above. #DM Type 2: Hold his home metformin while inpatient. On insulin sliding scale. #Gout: Continue home allopurinol. #LEN: on CPAP. #Anxiety: Continue home sertraline. (2) Cellulitis: (3) Coffee ground emesis: (4) Ileus: (5) Constipation: (6) Elevated troponin: (7) Hypertension: (8) Hyperlipidemia: (9) Diabetes: (10) Gout: (11) Obstructive sleep apnea: (12) Anxiety: Supervising Physician Co-Signing Physician Notes Resident Physician Supervision Note: I independently interviewed and examined the patient and verified the loera history and physical, reviewed labs and image studies, discussed the case with the resident Dr. Alonzo and agree with the findings and care plan. Subjective Seen and examined at bedside this AM. Pt tolerating po, denies coffee ground emesis or abdominal complaints. No acute events overnight. Still awaiting rehab placement. Review of Systems All systems reviewed & are unremarkable except as noted in HPI & below Physical Exam Vital Signs (Past 24 Hours): Last Vital Signs Temp 37.1 C 08/29/18 07:14 Pulse 54 L 08/29/18 07:14 Resp 20 08/29/18 07:14 BP 164/75 H 08/29/18 07:14 Pulse Ox 91 08/29/18 07:14 Physical Exam: Vitals noted and reviewed, as above GENERAL: no acute distress, much more alert mentation continues to improve. HEAD: normocephalic atraumatic ENT: sclerae normal, trachea midline RESP: normal work of breathing CV: extremities well perfused ABDOMEN: nondistended, nontender to palpation. SKIN: no rashes or jaundice PSYCH: appropriate mood and affect. Results & Data Laboratory Results 08/29/18 08/29/18 08/28/18 Range/Units 11:31 07:31 20:12 POC Glucose 182 H 96 103 H (70-99) 08/28/18 Range/Units 16:44 POC Glucose 118 H (70-99) Medications Administered Current Inpatient Medications Acetaminophen (Tylenol) 650 mg PO Q4H PRN PRN Reason: Pain Stop: 09/20/18 20:59 Last Admin: 08/26/18 00:07 Dose: 650 mg Documented by: Allopurinol (Zyloprim) 300 mg PO QAM [facility] Stop: 09/22/18 08:59 Last Admin: 08/29/18 07:49 Dose: 300 mg Documented by: Aspirin (Ecotrin Ectab) 81 mg PO QAM [facility] Stop: 09/22/18 08:59 Last Admin: 08/29/18 11:07 Dose: 81 mg Documented by: Atorvastatin Calcium (Lipitor) 80 mg PO QAM [facility] Stop: 09/22/18 08:59 Last Admin: 08/29/18 07:49 Dose: 80 mg Documented by: Bisacodyl (Dulcolax) 5 mg PO QPM [facility] Stop: 09/23/18 20:59 Last Admin: 08/28/18 21:34 Dose: 5 mg Documented by: Carbidopa/Levodopa (Sinemet 25/100 Mg) 2 tab PO 0730,1130,1500 [facility] Stop: 09/21/18 07:29 Last Admin: 08/29/18 11:08 Dose: 2 tab Documented by: Carbidopa/Levodopa (Sinemet 25/100 Mg) 1 tab PO DAILY@1900 [facility] Stop: 09/21/18 18:59 Last Admin: 08/28/18 19:15 Dose: 1 tab Documented by: Carbidopa/Levodopa (Sinement Cr 25/100mg) 1 tab PO DAILY@2300 [facility] Stop: 09/20/18 22:59 Last Admin: 08/28/18 21:40 Dose: 1 tab Documented by: Clopidogrel Bisulfate (Plavix) 75 mg PO QAM [facility] Stop: 09/22/18 08:59 Last Admin: 08/29/18 11:08 Dose: 75 mg Documented by: Cyanocobalamin (Vitamin B-12) 2,000 mcg PO QAM [facility] Stop: 09/22/18 08:59 Last Admin: 08/29/18 07:49 Dose: 2,000 mcg Documented by: Dextrose (Dextrose 50%) 25 - 50 ml IV UD PRN; Protocol PRN Reason: Hypoglycemia Protocol Stop: 09/21/18 15:59 Gabapentin (Neurontin) 300 mg PO TID [facility] Stop: 09/24/18 20:59 Last Admin: 08/29/18 14:00 Dose: 300 mg Documented by: Glucagon (Glucagen) 1 mg SQ UD PRN; Protocol PRN Reason: Hypoglycemia Protocol Stop: 09/21/18 15:59 Glucose (Glucose 40%) 15 - 30 gm PO UD PRN; Protocol PRN Reason: Hypoglycemia Protocol Stop: 09/21/18 15:59 Glucose (Dex4 Glucose) 4 - 8 tabs PO UD PRN; Protocol PRN Reason: Hypoglycemia Protocol Stop: 09/21/18 15:59 Insulin Aspart (Novolog Flexpen) 0 units SC ACHS [facility] Stop: 09/25/18 16:59 Last Admin: 08/29/18 12:45 Dose: 5 units Documented by: Lansoprazole (Prevacid) 30 mg PO BID [facility] Stop: 09/27/18 20:59 Last Admin: 08/29/18 07:49 Dose: 30 mg Documented by: [facility] ([facility]estril) [facility] [place] Stop: 09/22/18 08:59 Last Admin: 08/29/18 07:51 Dose: 5 mg Documented by: Methylnaltrexone [place] (Relistor) 12 mg SQ Q2D [facility] Stop: 09/25/18 16:59 Last Admin: 08/28/18 15:56 Dose: 12 mg Documented by: Metoprolol Succinate (Toprol Xl) [facility] [place] Stop: 09/22/18 08:59 Last Admin: 08/29/18 07:50 Dose: 25 mg Documented by: Miscellaneous (Carbohydrates For Hypoglycemia) 15 - 30 gm PO UD PRN PRN Reason: Hypoglycemia Treatment Stop: 09/21/18 15:59 Polyethylene Glycol (Miralax Powder Packet) 17 gm PO BID [facility] Stop: 09/23/18 20:59 Last Admin: 08/29/18 07:51 Dose: 17 gm Documented by: Ranitidine HCl (Zantac) 150 mg PO BID [facility] Stop: 09/21/18 20:59 Last Admin: 08/29/18 07:50 Dose: 150 mg Documented by: Sertraline HCl (Zoloft) 50 mg PO QAM [facility] Stop: 09/22/18 08:59 Last Admin: 08/29/18 07:51 Dose: 50 mg Documented by: Vitamin D (Vitamin D3) 1,000 units PO QAM [facility] Stop: 09/22/18 08:59 Last Admin: 08/29/18 07:49 Dose: 1,000 units Documented by: Resident Activity Tracking Resident Involvement: Resident Care Provided Care Provided: Adult Hospital Medicine (1) Diabetes Diabetes mellitus complication status: without complication Diabetes mellitus fci insulin use: without fci use Diabetes mellitus type: type 2 Qualified Code(s): E11.9 - Type 2 diabetes mellitus without complications (2) Gout Gout etiology: unspecified cause Gout site: unspecified site (3) Cellulitis Laterality: left Site of cellulitis: extremity Site of cellulitis of extremity: lower extremity Qualified Code(s): L03.116 - Cellulitis of left lower limb (4) Hypertension Hypertension type: essential hypertension Qualified Code(s): I10 - Essential (primary) hypertension
[2018-08-29] MEDS: BISACODYL 5 MG TABEC PO SCH (21:16)
[2018-08-29 23:08] VITALS: O2SAT 93
[2018-08-30 07:32] VITALS: BP 167/79; PULSE 56; TEMP 99
[2018-08-30] MEDS: CARBIDOPA/LEVODOPA 25/100MG TAB PO SCH ×2 (08:38→11:42)
[2018-08-30] MEDS: SERTRALINE HCL 50 MG TABLET PO SCH (08:39)
[2018-08-30] MEDS: ATORVASTATIN 40 MG TAB PO SCH (08:39)
[2018-08-30] MEDS: CLOPIDOGREL BISULFATE 75 MG TAB PO SCH (08:40)
[2018-08-30] MEDS: CYANOCOBALAMIN 500 MCG TABLET (VITAMIN B-12) PO SCH (08:40)
[2018-08-30] MEDS: CHOLECALCIFEROL 1,000 UNITS TAB PO SCH (08:40)
[2018-08-30] MEDS: GABAPENTIN 300 MG CAP PO SCH ×2 (08:41→14:23)
[2018-08-30] MEDS: ASPIRIN 81 MG ECTAB PO SCH (08:42)
[2018-08-30] MEDS: LISINOPRIL 5 MG TAB PO SCH (08:42)
[2018-08-30] MEDS: POLYETHYLENE (MIRALAX) 17 GM PACK PO SCH (08:43)
[2018-08-30] MEDS: ALLOPURINOL 300 MG TAB PO SCH (08:43)
[2018-08-30] MEDS: LANSOPRAZOLE 30 MG SOLTAB PO SCH (08:43)
[2018-08-30] MEDS: METOPROLOL SUCC 25MG EXT REL TAB PO SCH (08:43)
[2018-08-30] MEDS: INSULIN ASPART 100 UNITS/ML 3 ML PEN SC SCH ×2 (08:45→13:24)
--- NOTE | 2018-08-30 10:51 | Discharge Summary ---
Date of Service August 30, 2018 Admission HPI Per Admitting Provider The patient is a 77-year-old male with a past medical history of Parkinson's disease, hypertension, hyperlipidemia, diabetes, and STEMI in April 2018, gout, that presents with multiple complaints including hallucinations, difficulties walking, abdominal distention, and lower extremity cellulitis. The patient was recently evaluated 1 week ago his neurologist and found that his Parkinson's disease at that time was stable. Approximately 2 days ago he began to have difficulties walking mostly attributed to difficulty moving his left leg. The symptoms appeared to dissipate on Sunday, but began to resurface this morning. The symptoms were strange because he usually has difficulty with moving his right leg or symptoms related to Parkinson's on his right side. His daughter also notes that he has been having increased hallucinations over the last 48 hours as well. The only change made at any of his medications recently was the timing of his Sinemet. The medication was changed to be taken at 3 PM, from a previous time 4:30 PM. The patient also had a fall 2 weeks ago that resulted in a laceration of his left leg. 24 hours ago his daughter began to notice some increased swelling and erythema of the left leg. He is also had some tenderness over the area of erythema as well. The patient has also had chronic bowel issues stemming from previous abdominal surgeries. On Sunday evening the patient was having some discomfort and the daughter gave him a dose of Gas-X. The patient takes MiraLAX twice daily in addition to Dulcolax in the evening. Over the last 48 hours, the patient has been having distention of his abdomen. His stool is usually loose due to his bowel regimen, and this has remained unchanged. He denies any fever, chills, chest pain, shortness of breath, or any other acute complaints at this time. Principal Diagnosis hallucinations, altered mental status, parkinson's disease complication Discharge Exam Vitals noted and reviewed, as above GENERAL: no acute distress, much more alert mentation at baseline. HEAD: normocephalic atraumatic ENT: sclerae normal, trachea midline RESP: normal work of breathing CV: extremities well perfused ABDOMEN: nondistended, nontender to palpation. SKIN: no rashes or jaundice PSYCH: appropriate mood and affect. Discharge Data Allergies Allergy/AdvReac Type Severity Reaction Status Date / Time tramadol AdvReac Severe Confusion Unverified 08/21/18 12:16 Consultations 08/21/18 16:03 ED Decision to Admit Stat 08/22/18 11:51 Consult Neurology Stat 08/23/18 09:15 Consult Gastroenterology Routine Ordered Studies 08/21/18 11:56 CT abd pelvis oral and IV con Stat US venous doppler LE BI Stat 08/21/18 11:57 CT head/brain wo con Stat 08/22/18 15:11 MR brain wo con Routine Hospital Course (1) Parkinson disease: 77-year-old male was admitted on 21 August 2018 for hallucinations, difficulty walking, abdominal distention, and lower extremity cellulitis. #Coffee-ground emesis, abdominal distention, ileus: -Noted in a.m. on Apr. GI consulted. -Ileus possibly due to antiparkinsonian medications, DM. -Appreciate GI recs -given IV Protonix then transitioned to PO prevacid BID and ranitidine 150mg BID, for 4 weeks total. -Erythromycin given x 5 doses, minimal effect. -Initially placed on NG tube to low intermittent suction - self DCd, not replaced. - On gabapentin (with renal monitoring) for leg pains. -Since gabapentin may be contributing to these abdominal issues, freq decr from QID to TID. -Patient has been on this medication for years, so suspect further tapering (if tolerated by patient) slowly every couple of weeks. -Overall resolved. Stable hemoglobin. Tolerating normal diet on discharge day. #Chronic constipation: -Restarted his home MiraLAX and Dulcolax. -benefit with Relistor (given q48 h IV) here. #Hallucination in setting of Parkinson's disease: -Neurology consulted, hallucinations thought to be related to Parkinson's, dementia, and/or Sinemet. Also may have been worsened by his concurrent cellulitis and mild dehydration. -Plan to continue Sinemet 25/100 mg 2 tablets 730/1130/1500, 1 tablet 1900, CR 25/100 mg 1 tablet 2300, and regular follow up in outpatient. -Resolved, mental status at baseline. #Elevated troponin: PMH of STEMI, ischemic CM. -Remained asymptomatic here. -on plavix since Apr 2018 NSTEMI, rec to cont for 1 year - held here initially due to GIB since . -Trop peaked at 3.14, since trending down. EKG with no clear ischemia or dynamic changes. -05Apr echocardiogram noted EF 30-35% with no significant changes compared to April 2018 (see full reports). -Suspect demand ischemia. -Continued with previous plan of medical management, as patient has previously not wanted a cardiac cath. -resumed ASA and plavix. #Left lower extremity cellulitis: -May be related to a fall two weeks prior to admission that resulted in a laceration of the leg. -03Apr started on Ancef - then converted to Keflex TID. -Resolved, Finished total of 7 days. Ongoing medical issues: #Hypertension, hyperlipidemia: Continue home atorvastatin, lisinopril, and metoprolol. -Resume home Plavix/ASA 11Apr. Initially held due to GI bleed, now resolved. See above. #DM Type 2: Cont home metformin on discharge. #Gout: Continue home allopurinol. #LEN: on CPAP. #Anxiety: Continue home sertraline. (2) Cellulitis: (3) Coffee ground emesis: (4) Ileus: (5) Constipation: (6) Elevated troponin: (7) Hypertension: (8) Hyperlipidemia: (9) Diabetes: (10) Gout: (11) Obstructive sleep apnea: (12) Anxiety: Total Time Total Time Spent Total Time Spent (In Minutes): 35 Discharge Plan Discharge Items Patient Disposition: Home - Home Health Services Reason For Visit: CELLULITIS,PARKINSONS DISEASE Discharge Diagnosis: CELLULITIS, PARKINSONS DISEASE, CONSTIPATION, COFFEE GROUND EMESIS Condition: Good Discharge Goals: Decrease discomfort, Improve disease control, Improve function, Improve nutritional status and Learn about illness Activity: Per 'Additional Instructions' section Lifting: Gradually increase as tolerated Bathing: No limitations Sexual Activity: When tolerated Exercise/Sports: Gradually increase as tolerated Non-emergency contact: Primary Care Provider and Rn Or Lpn Call non-emergency contact if: you have any medication questions, your symptoms worsen, your pain is worsening and your temperature is above 100.5 Follow-up/Referrals: Nataly Davis MD [Primary Care Provider] - 08/28/18 11:30 am Diet: Carb Consistent or DM2 and Heart Healthy Addtl Provider Instructions: You were admitted due to acute altered mental status and a lower leg infection. You have completed antibiotics for your leg infection (7 days of Keflex), and this is resolved. You were seen by neurology and your medications were analyzed for any recommended changes. The plan is to continue Sinemet 25/100 mg 2 tablets 7:30/11:30/15:00, 1 tablet 19:00, CR 25/100 mg 1 tablet 23:00, and regular follow up in outpatient. Your mental status changes may be due to a combination of your underlying neurologic disease, as well as acute infection of the leg. Either way, your mental status is back to your baseline, which is reassuring. You developed gastrointestinal problems while here including coffee ground emesis and constipation. You were seen by gastroenterology. You have been tolerating a regular diet. The plan is to reduce your Neurontin medication to just three times a day as this may have been contributing to your issues. Continue your home miralax and dulcolax dosing, as well as "Relistor" to be taken every other day. Your heart enzymes did become elevated while you were here, without any chest pain symptoms. A repeat echocardiogram did not show any acute changes. Please continue your home medications, and keep any follow up appointments you may have with your heart doctor. If your symptoms return: like hallucinations, altered mental status, or if you start feeling severe or persistent abdominal pain, vomiting blood or dark red vomit, or your constipation is getting worse, do not hesitate to contact your PCP or food safety director or neurologist office. If these offices are not available or if you are concerned, please return to the ER. Be well Roslyn Alonzo MD Prescriptions: New carbidopa-levodopa 25-100 mg Tablet Extended Release 1 tab PO DAILY@2300 30 Days Qty: 30 RF: 0 carbidopa-levodopa 25-100 mg Tablet 1 tab PO DAILY@1900 30 Days Qty: 30 RF: 0 carbidopa-levodopa 25-100 mg Tablet 2 tab PO 0730,1130,1500 30 Days Qty: 180 RF: 0 lansoprazole [Prevacid SoluTab] 30 mg Tablet,Disintegrat, Delay Rel 30 mg PO BID Qty: 60 RF: 0 gabapentin 300 mg Capsule 300 mg PO TID 30 Days Qty: 90 RF: 0 Continued atorvastatin 40 mg tablet 80 mg PO QAM RF: 0 metformin 500 mg tablet 500 mg PO BID RF: 0 polyethylene glycol 3350 17 gram powder in packet 1 dose PO BID RF: 0 clopidogrel 75 mg tablet 75 mg PO QAM RF: 0 aspirin 81 mg tablet,delayed release (DR/EC) 81 mg PO QAM RF: 0 ranitidine HCl 150 mg tablet 150 mg PO BID RF: 0 allopurinol 300 mg tablet 300 mg PO QAM RF: 0 bisacodyl [Dulcolax (bisacodyl)] 5 mg tablet,delayed release (DR/EC) PO QPM RF: 0 lisinopril 5 mg tablet 5 mg PO QAM RF: 0 metoprolol succinate 25 mg tablet extended release 24 hr 25 mg PO QAM RF: 0 sertraline 50 mg tablet 50 mg PO QAM RF: 0 cyanocobalamin (vitamin B-12) [Vitamin B-12] 2,000 mcg Tablet Extended Release 2,000 mcg PO QAM RF: 0 cholecalciferol (vitamin D3) [Vitamin D3] 1,000 unit Tablet 1,000 unit PO QAM RF: 0 Discontinued gabapentin 300 mg capsule 300 mg PO QID RF: 0 carbidopa-levodopa 25-100 mg tablet 1 dose PO DIRECTED RF: 0 carbidopa-levodopa 25-100 mg tablet extended release 1 tab PO HS RF: 0 Stand-Alone Forms: [facility] Discharge Orders: Discharge Order (Routine); Ordered 08/30/18 Ordered By: Fadumo Alonzo Admission Data Admit Date/Time: 08/21/18 18:42 Attending Provider: Evonne Hanson Admit Provider: Andrea Arechiga Primary Care Provider: Nataly Davis Other Providers: Jatinder Escalera ; Jah Henderson ; Chandler Baker ; Saroj Hutton ; Rola Toure ; Joselo Shelby ; Scott Ayala ; Jason Lester ; Flor Motley ; Gaurav Corona ; Magdiel Suárez ; Milly Oconnor ; Francoise Chairez ; Beatriz Wilhelm ; Mable Singh ; Zaynab Patel ; Lno Golden ; Home,Nursing Agency Service: Medical Other Interventions: Discharge Summary Assessment (RN) Last Done: 08/30/18 14:12 Pending Studies at Discharge: No DC Date/Time DO NOT enter until pt leaves facility: 08/30/18 15:08 Supervising Physician Co-Signing Physician Notes Resident Physician Supervision Note: I independently interviewed and examined the patient and verified the loera history and physical, reviewed labs and image studies, discussed the case with the resident Dr. Alonzo and agree with the findings and care plan. Time spent in discharge 35 min Resident Activity Tracking Resident Involvement: Resident Care Provided Care Provided: Adult Hospital Medicine
== END 2018-08-30 15:08 | disposition home health service (06) | DRG 603 ==
LOC: ED 11:11 → 4E 18:42 → SUATTDRO 18:42 → 4E 19:25

== ENCOUNTER 2018-12-30 18:53 | Inpatient (IN) ==
[2018-12-30] MEDS ORDERED: SODIUM CHLORIDE 0.9% 1000ML 1,000 ML IV ONE (19:00)
[2018-12-30 19:30] LABS: Basophils # (auto) 0.01 K/uL (0-0.2); Basophils % (auto) 0.1 %; Eosinophils # (auto) 0.21 K/uL (0-0.5); Eosinophils % (auto) 2.7 %; Hematocrit (blood only) 33.2 % (42-52); Hemoglobin 10.7 g/dL (14.0-18.0); Immature Granulocytes # (auto) 0.01 K/uL (0.00-0.02); Immature Granulocytes % (auto) 0.1 %; Lymphocytes # (auto) 1.87 K/uL (1.2-3.4); Lymphocytes % (auto) 23.6 %; Mean Corpuscular Hgb Conc 32.2 g/dL (32-36); Mean Corpuscular Volume 94.9 fL (80-100); Monocytes # (auto) 1.28 K/uL (0.11-0.59); Monocytes % (auto) 16.2 %; Neutrophils # (auto) 4.54 K/uL (1.4-6.5); Neutrophils % (auto) 57.3 %; Platelet Count 224 K/uL (130-400); RDW Standard Deviation 48.4 fL (36.4-46.3); White Blood Count 7.92 K/uL (4.8-10.8)
[2018-12-30 19:35] LABS: Base Excess VBG 1.9 mEq/L; HCO3 VBG 28 mmol/L; PCO2 VBG 48 mmHg (38-50); PO2 VBG 23 mmHg; pH VBG 7.38 (7.36-7.41)
--- NOTE | 2018-12-30 19:35 | XRay Report ---
XR chest 1V portable CLINICAL HISTORY: 78 years-old Male presenting with Sepsis. TECHNIQUE: Portable upright AP view of the chest was obtained. COMPARISON: 12/13/2018. FINDINGS: Exaggerated thoracic kyphosis and KE patient rotation to grating image quality limiting diagnostic s ensitivity the exam. Atherosclerosis of the aortic arch. Cardiac silhouette enlarged as on prior. No focal opacity. No large effusion or pneumothorax. Osseous structures normal. Upper abdomen normal. IMPRESSION: 1. Limited evaluation due to positioning. Allowing for this, no gross evidence of acute cardiopulmon kelsey disease apart from cardiomegaly. Electronically signed by: John Alejandre M.D. 12/30/2018 7:34 PM
[2018-12-30 19:36] LABS: Oxygen Saturation VBG < 60.0 %
[2018-12-30 19:43] LABS: INR 1.1 (0.9-1.1); Prothrombin Time 11.6 Seconds (9.0-12.0)
[2018-12-30 20:14] LABS: Albumin Level 3.6 gm/dl (3.4-5.0); Calcium 8.9 mg/dl (8.5-10.1); Creatinine Clr Calc Pharmacy 50.3 ml/min; Est GFR (African American) 52.6; Est GFR (Non-African American) 45.4; Potassium 4.3 mmol/L (3.5-5.1)
[2018-12-30 20:17] LABS: Bilirubin,Total 0.8 mg/dl (0.2-1); Globulin 3.7 gm/dl (2.5-4.0); Total Protein 7.3 gm/dl (6.4-8.2)
[2018-12-30 20:42] LABS: Appearance Urine Clear (Clear); Bilirubin Urine Negative (Negative); Blood Urine Negative (Negative); Color Urine Yellow; Glucose Urine UA Negative (Negative); Ketones Urine Negative (Negative); Leukocyte Esterase Urine Negative (Negative); Nitrite Urine Negative (Negative); Protein Urine Negative (Negative); Specific Gravity Urine 1.018 (1.000-1.030); Urobilinogen Urine Negative (Negative)
--- NOTE | 2018-12-30 21:15 | CT Scan Report ---
HEAD CT NONCONTRAST CT DOSE: 2554.22 mGycm HISTORY: Altered mental status. TECHNIQUE: Multiaxial CT images of the head were performed without the use of intravenous contrast. A utomated exposure control was utilized for this study. A dose lowering technique was utilized adheri ng to the principles of ALARA. Comparison: None. Findings: Motion artifact results in suboptimal evaluation. No definite mass, hematoma, midline shift , acute infarct. Mild atrophy and mild ligamentous ischemic changes are noted. The paranasal sinuses and mastoid air cells are clear. No calvarial fractures. Impression: Suboptimal evaluation due to the significant motion artifact. No definite acute intracranial abnormal ity. Electronically signed by: Claude Smith M.D. 12/30/2018 9:14 PM
--- NOTE | 2018-12-30 21:23 | CT Scan Report ---
ABDOMEN AND PELVIS CT WITH IV CONTRAST CT DOSE: 1007.73 mGycm HISTORY: Generalized abdominal pain. TECHNIQUE: Multiaxial CT images of the abdomen and pelvis were performed following the use of intrave nous contrast. A dose lowering technique was utilized adhering to the principles of ALARA. COMPARISON STUDY: Abdomen and pelvis CT 12/13/2018. FINDINGS: Bibasilar linear densities likely represent subsegmental atelectasis. No pneumoperitoneum. No pneumatosis. A few old, healed left-sided rib fractures are again noted. There is also healing lef t posterior 11th rib fracture, unchanged. No acute fractures identified. Suboptimal evaluation due to streak artifact from the patient's overlapping arms. The visualized gallbladder, adrenal glands, cole creas, and right kidney are unremarkable. A few punctate calcified granulomas within the liver and sp tod. Stable hypodense lesions within the left kidney. These likely represent cysts. No hydronephrosi s. No retroperitoneal lymphadenopathy. The bladder is unremarkable. No pelvic free fluid. Stable mild chronic thickening of the sigmoid colon distal to the anastomosis. Mild narrowing at the sigmoid melissa stomosis. Proximal to the anastomosis the colon is mildly distended measuring up to 7.8 cm in diamete r. The majority of the colon is filled with liquid stool. A few borderline dilated gas and fluid-fill ed loops of small bowel within the abdomen. Prior right hemicolectomy. IMPRESSION: 1. Mildly dilated gas and fluid-filled colon to the level of the sigmoid anastomosis which demonstrat es mild narrowing. However, there is stool distal to this location. There are also a few borderline d ilated gas-filled loops of small bowel. Therefore, these findings favor an ileus. A low-grade partial large bowel obstruction due to the narrowing at the sigmoid anastomosis could also have a similar ap pearance but is considered less likely. 2. Liquid stool within the colon. This could represent a gastroenteritis/diarrhea illness. 3. Stable mild chronic thickening of the distal sigmoid colon. 4. Additional stable findings as described above. Electronically signed by: Claude Smith M.D. 12/30/2018 9:22 PM
[2018-12-30] MEDS ORDERED: IOVERSOL 100ml IV PRN (21:27)
--- NOTE | 2018-12-30 23:31 | History & Physical Report ---
Date of Service December 30, 2018 Assessment & Plan (1) Altered mental status: Patient with increased somnolence and decreased PO intake, progressive over the last 2-3 days. 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 Mental status has improved with administration of IVF. Patient is now near baseline per family. Ddx to include dehydration, possible ileus or early SBO, medication effects, progression of Parkinson's disease -Admit to PCU -Frequent orientation, delirium prevention strategies Present on Admission?: Yes (2) Ileus: Patient with history of the same. Presently with hyperactive, high pitched bowel sounds. No BM or flatus since yesterday afternoon although patient feels that he needs to go now. No nausea, no abdominal pain or distention at present -Admit to PCU as above -NPO except medications -IVF with LR at 100mL/hr x 1 L -Check Mg and PO4 and replete if needed -Continue bowel regimen with Dulcolax and Miralax. Add Dulcolax suppository PRN -Zofran PRN Present on Admission?: Yes (3) Parkinson's disease: Progressive disease. Patient was recently admitted with worsening gait and hallucinations. He is on Carbidopa/Levodopa. Follows with Neurology -Continue Sinimet at home dosage -Delirium prevention strategies Present on Admission?: Yes (4) Hyperlipidemia: Chronic -Hold Lipitor for now in setting of possible ileus -Resume when acute issues resolve Present on Admission?: Yes (5) Peripheral neuropathy: chronic -Continue home Neurontin TID Present on Admission?: Yes (6) History of coronary artery disease: Patient s/p STEMI in April 2018. No stent was placed. Presently without CP. No EKG evidence of ischemia. -Continue ASA and Plavix Present on Admission?: Yes (7) Obstructive sleep apnea: On home CPAP -Continue CPAP qHS Present on Admission?: Yes (8) Anxiety: Chronic. Stable -Hold Sertraline for now in setting of possible ileus -Resume when acute issues resolve Present on Admission?: Yes (9) Gout: No acute flare. -Hold Allopurinol for now in setting of possible ileus -Resume when acute issues resolve Present on Admission?: Yes (10) Hypertension: Blood pressure presently 147/71 -Hold Lisinopril for now in setting of possible ileus -Metoprolol 5mg IV q 6 hours for BP control -Telemetry monitoring in place Present on Admission?: Yes (11) Diabetes: Well controlled on Metformin -Hold Metformin while inpatient -ISS -Patient NPO F/E/N - LR at 100mL/hr, check Mg and PO4 as above, NPO for now for possible ileus Ppx - ASA and Plavix, Ranitidine 150mg IV daily Code - Full per discussion with patient Dispo - admit to PCU History of Present Illness Chief Complaint: AMS Primary Care Provider: Nataly Davis MD Kendell Montalvo is a 78yo C male with multiple medical problems to include PD, DM, HTN, CAD s/p STEMI in Apr 2018, Gout. He was recently hospitalized in August 2018 with hallucinations, gait abnormality, cellulitis and ileus. Patient lives at home. He has family in the home that assists him with ADLs. He presents today with his son and daughter with complaints of altered mental status, progressive somnolence since Sunday as well as abdominal discomfort, dyspepsia/nausea. Poor po intake. Constipation - last BM and flatus was yesterday afternoon. He had some abdominal distention earlier today which as resolved. No additional complaints at this time. No CP/palpitations/cough/SOB. No nausea at present. Mental status improved with IVF. ER Course: NSS Allergies Allergy/AdvReac Type Severity Reaction Status Date / Time tramadol AdvReac Severe Confusion Unverified 12/30/18 20:06 Home Medications Home Medications Medication Instructions Recorded Confirmed Type allopurinol 300 mg PO QAM 08/21/18 12/30/18 History aspirin 81 mg PO QAM 08/21/18 12/30/18 History bisacodyl [Dulcolax (bisacodyl)] 0 dose PO HS 08/21/18 12/30/18 History cholecalciferol (vitamin D3) 1,000 unit PO QAM 08/21/18 12/30/18 History [Vitamin D3] clopidogrel 75 mg PO QAM 08/21/18 12/30/18 History cyanocobalamin (vitamin B-12) 2,000 mcg PO QAM 08/21/18 12/30/18 History [Vitamin B-12] metformin 500 mg PO BID 08/21/18 12/30/18 History metoprolol succinate 25 mg PO QAM 08/21/18 12/30/18 History polyethylene glycol 3350 1 dose PO BID 08/21/18 12/30/18 History ranitidine HCl 150 mg PO BID 08/21/18 12/30/18 History sertraline 50 mg PO QAM 08/21/18 12/30/18 History gabapentin 300 mg capsule 300 mg PO TID #120 cap 11/05/18 12/30/18 Rx carbidopa-levodopa 2 tab PO TID 12/13/18 12/30/18 History lisinopril 2.5 mg PO QAM 12/13/18 12/30/18 History sertraline 25 mg PO QAM 12/13/18 12/30/18 History carbidopa 25 mg-levodopa 100 mg 1 tab PO .DAILY @ 1900 12/19/18 12/30/18 History tablet carbidopa ER 25 mg-levodopa 100 mg 1 tab PO HS 12/19/18 12/30/18 History tablet,extended release atorvastatin [Lipitor] 80 mg PO HS 12/30/18 12/30/18 History Past Med/Surg History Medical History STEMI (ST elevation myocardial infarction) Falls (Acute) Anxiety (Chronic) Gout (Chronic) Peripheral neuropathy (Chronic) Cervical stenosis of spine (Resolved) Heart attack (Resolved) History of rhabdomyolysis (Resolved) Aortic regurgitation Hypertension Parkinson's disease Personal history of DVT (deep vein thrombosis) Sleep apnea Type 2 diabetes mellitus Surgical History History of cataract surgery (Resolved) History of right knee joint replacement (Resolved) H/O hemicolectomy Family History Other Medical history non-contributory Social History Preferred Language: Yoruba Communication Ability: Effective Clearing Inspector Required: No Beliefs That Will Affect Care: None marital status: / Current Living Situation: Family Current Living Situation Comment: Uses a walker and wheelchair at home Feels Safe at Home: Yes Smoking Status: Never smoker Tobacco Type: pipe and cigars ; Cigarettes Per Day: quit 20 yrs ago ; Second Hand Exposure: No ; Hx Alcohol Use: No (quit 20 yrs ago) Hx Substance Use: No Review of Systems Review of Systems: All systems reviewed & are unremarkable except as noted in HPI & below Physical Exam Physical Exam: General: patient resting comfortably, NAD, non-toxic in appearance, AA&O to person and place Skin: warm, dry, intact, small decubiti on gluteal cleft, healing wounds on bilateral LEs. healing abrasion on right forehead, fungal infection in left groin HEENT: NC/AT, PERRL, EOMI, anicteric sclera, conjunctiva without injection, external ear normal to inspection and nontender, nares patent, dry mucus membranes, dentition intact, no oropharyngeal lesions, neck supple, trachea midline, no LAD, no thyromegaly, no JVD Heart: +S1/S2, regular, no m/r/g Lungs: equal air entry bilaterally, no rales/rhonchi/wheezes Abd: +BS, hyperactive, high-pitched, soft, NT/ND, no willi s/organomegaly/ascites Ext: warm, 2+ pulses in UE/LE bilaterally, no clubbing/cyanosis, trace edema of LLE Neuro: nonfocal, patient AA&O to person and place, speech intact, no facial droop, moving all extremities on command with equal strength 5/5, +intention tremor Results & Data Vital Signs (Past 12 Hours) Vital Signs Temp Pulse Resp BP Pulse Ox 12/30/18 21:49 59 L 14 147/71 H 94 12/30/18 20:33 70 17 12/30/18 20:32 61 18 143/64 H 12/30/18 20:30 62 16 12/30/18 20:00 63 16 141/65 H 12/30/18 19:33 64 18 121/85 12/30/18 19:30 61 21 12/30/18 19:05 36.9 C 59 L 17 136/76 95 12/30/18 19:01 58 L 20 136/76 95 12/30/18 19:00 59 L 15 12/30/18 18:58 63 22 129/81 Laboratory Results Lab Results 12/30/18 12/30/18 12/30/18 Range/Units 19:20 19:20 19:20 WBC 7.92 (4.8-10.8) K/uL RBC 3.50 L (4.7-6.1) M/uL Hgb 10.7 L (14.0-18.0) g/dL Hct 33.2 L (42-52) % MCV 94.9 (80-100) fL MCH 30.6 (25-34) pg MCHC 32.2 (32-36) g/dL RDW Std Deviation 48.4 H (36.4-46.3) fL RDW Coeff of Shilpa 14.0 (11.5-14.5) % Plt Count 224 (130-400) K/uL MPV 10.0 (7.4-10.4) fL Immature Gran % (Auto) 0.1 % Neut % (Auto) 57.3 % Lymph % (Auto) 23.6 % [place] % (Auto) 16.2 % Eos % (Auto) 2.7 % Baso % (Auto) 0.1 % Immature Gran # (Auto) 0.01 (0.00-0.02) K/uL Neut # (Auto) 4.54 (1.4-6.5) K/uL Lymph # (Auto) 1.87 (1.2-3.4) K/uL [place] # (Auto) 1.28 H (0.11-0.59) K/uL Eos # (Auto) 0.21 (0-0.5) K/uL Baso # (Auto) 0.01 (0-0.2) K/uL PT 11.6 (9.0-12.0) Seconds INR 1.1 (0.9-1.1) APTT 26.0 (21.0-31.0) Seconds PTT Ratio 1.0 VBG pH 7.38 (7.36-7.41) VBG pCO2 48 (38-50) mmHg VBG pO2 23 mmHg VBG HCO3 28 mmol/L VBG O2 Saturation < 60.0 % VBG Base Excess 1.9 mEq/L Barometric Pressure 729.3 mm/Hg Sodium (136-145) mmol/L Potassium (3.5-5.1) mmol/L Chloride (98-107) mmol/L Carbon Dioxide (21-32) mmol/L Anion Gap (3-11) BUN (7-18) mg/dl Creatinine (0.6-1.4) mg/dl Est Cr Clr Drug Dosing ml/min Est GFR ( Amer) Est GFR (Non-Af Amer) BUN/Creatinine Ratio (10-20) Glucose (70-99) mg/dl Lactate (0.4-2.0) mmol/L Calcium (8.5-10.1) mg/dl Total Bilirubin (0.2-1) mg/dl AST (15-37) U/L ALT (12-78) U/L Alkaline Phosphatase (45-117) U/L Total Protein (6.4-8.2) gm/dl Albumin (3.4-5.0) gm/dl Globulin (2.5-4.0) gm/dl Albumin/Globulin Ratio (0.9-2) Urine Color Urine Appearance (Clear) Urine pH (4.5-7.5) Ur Specific [place] (1.000-1.030) Urine Protein (Negative) Urine Glucose (UA) (Negative) Urine Ketones (Negative) Urine Blood (Negative) Urine Nitrite (Negative) Urine Bilirubin (Negative) Urine Urobilinogen (Negative) Ur Leukocyte Esterase (Negative) 12/30/18 12/30/18 12/30/18 Range/Units 19:20 19:45 20:00 WBC (4.8-10.8) K/uL RBC (4.7-6.1) M/uL Hgb (14.0-18.0) g/dL Hct (42-52) % MCV (80-100) fL MCH (25-34) pg MCHC (32-36) g/dL RDW Std Deviation (36.4-46.3) fL RDW Coeff of Shilpa (11.5-14.5) % Plt Count (130-400) K/uL MPV (7.4-10.4) fL Immature Gran % (Auto) % Neut % (Auto) % Lymph % (Auto) % [place] % (Auto) % Eos % (Auto) % Baso % (Auto) % Immature Gran # (Auto) (0.00-0.02) K/uL Neut # (Auto) (1.4-6.5) K/uL Lymph # (Auto) (1.2-3.4) K/uL [place] # (Auto) (0.11-0.59) K/uL Eos # (Auto) (0-0.5) K/uL Baso # (Auto) (0-0.2) K/uL PT (9.0-12.0) Seconds INR (0.9-1.1) APTT (21.0-31.0) Seconds PTT Ratio VBG pH (7.36-7.41) VBG pCO2 (38-50) mmHg VBG pO2 mmHg VBG HCO3 mmol/L VBG O2 Saturation % VBG Base Excess mEq/L Barometric Pressure mm/Hg Sodium 141 (136-145) mmol/L Potassium 4.3 (3.5-5.1) mmol/L Chloride 106 (98-107) mmol/L Carbon Dioxide 28 (21-32) mmol/L Anion Gap 6.0 (3-11) BUN 25 H (7-18) mg/dl Creatinine 1.46 H (0.6-1.4) mg/dl Est Cr Clr Drug Dosing 50.3 ml/min Est GFR ( Amer) 52.6 Est GFR (Non-Af Amer) 45.4 BUN/Creatinine Ratio 17.0 (10-20) Glucose 102 H (70-99) mg/dl Lactate 1.7 (0.4-2.0) mmol/L Calcium 8.9 (8.5-10.1) mg/dl Total Bilirubin 0.8 (0.2-1) mg/dl AST 15 (15-37) U/L ALT 8 L (12-78) U/L Alkaline Phosphatase 130 H (45-117) U/L Total Protein 7.3 (6.4-8.2) gm/dl Albumin 3.6 (3.4-5.0) gm/dl Globulin 3.7 (2.5-4.0) gm/dl Albumin/Globulin Ratio 1.0 (0.9-2) Urine Color Yellow Urine Appearance Clear (Clear) Urine pH 5.0 (4.5-7.5) Ur Specific [place] 1.018 (1.000-1.030) Urine Protein Negative (Negative) Urine Glucose (UA) Negative (Negative) Urine Ketones Negative (Negative) Urine Blood Negative (Negative) Urine Nitrite Negative (Negative) Urine Bilirubin Negative (Negative) Urine Urobilinogen Negative (Negative) Ur Leukocyte Esterase Negative (Negative) Diagnostic Findings XR chest 1V portable CLINICAL HISTORY: 78 years-old Male presenting with Sepsis. TECHNIQUE: Portable upright AP view of the chest was obtained. COMPARISON: 12/13/2018. FINDINGS: Exaggerated thoracic kyphosis and NIGERIAN patient rotation to grating image quality limiting diagnostic sensitivity the exam. Atherosclerosis of the aortic arch. Cardiac silhouette enlarged as on prior. No focal opacity. No large effusion or pneumothorax. Osseous structures normal. Upper abdomen normal. IMPRESSION: 1. Limited evaluation due to positioning. Allowing for this, no gross evidence of acute cardiopulmonary disease apart from cardiomegaly. Electronically signed by: John Alejandre M.D. 12/30/2018 7:34 PM Dictated: 12/30/181932 Transcribed: 12/30/[address] NONCONTRAST CT DOSE: 2554.22 mGycm HISTORY: Altered mental status. TECHNIQUE: Multiaxial CT images of the head were performed without the use of intravenous contrast. Automated exposure control was utilized for this study. A dose lowering technique was utilized adhering to the principles of ALARA. Comparison: None. Findings: Motion artifact results in suboptimal evaluation. No definite mass, hematoma, midline shift, acute infarct. Mild atrophy and mild ligamentous ischemic changes are noted. The paranasal sinuses and mastoid air cells are clear. No calvarial fractures. Impression: Suboptimal evaluation due to the significant motion artifact. No definite acute intracranial abnormality. Electronically signed by: Claude Smith M.D. 12/30/2018 9:14 PM Dictated: 12/30/182110 Transcribed: 12/30/18[address] A[address] WITH IV CONTRAST CT DOSE: 1007.73 mGycm HISTORY: Generalized abdominal pain. TECHNIQUE: Multiaxial CT images of the abdomen and pelvis were performed following the use of intravenous contrast. A dose lowering technique was utilized adhering to the principles of ALARA. COMPARISON STUDY: Abdomen and pelvis CT 12/13/2018. FINDINGS: Bibasilar linear densities likely represent subsegmental atelectasis. No pneumoperitoneum. No pneumatosis. A few old, healed left-sided rib fractures are again noted. There is also healing left posterior 11th rib fracture, unchanged. No acute fractures identified. Suboptimal evaluation due to streak artifact from the patient's overlapping arms. The visualized gallbladder, adrenal glands, pancreas, and right kidney are unremarkable. A few punctate c alcified granulomas within the liver and spleen. Stable hypodense lesions within the left kidney. These likely represent cysts. No hydronephrosis. No retroperitoneal lymphadenopathy. The bladder is unremarkable. No pelvic free fluid. Stable mild chronic thickening of the sigmoid colon distal to the anastomosis. Mild narrowing at the sigmoid anastomosis. Proximal to the anastomosis the colon is mildly distended measuring up to 7.8 cm in diameter. The majority of the colon is filled with liquid stool. A few borderline dilated gas and fluid-filled loops of small bowel within the abdomen. Prior right hemicolectomy. IMPRESSION: 1. Mildly dilated gas and fluid-filled colon to the level of the sigmoid anastomosis which demonstrates mild narrowing. However, there is stool distal to this location. There are also a few borderline dilated gas-filled loops of small bowel. Therefore, these findings favor an ileus. A low-grade partial large bowel obstruction due to the narrowing at the sigmoid anastomosis could also have a similar appearance but is considered less likely. 2. Liquid stool within the colon. This could represent a gastroenteritis/diarrhea illness. 3. Stable mild chronic thickening of the distal sigmoid colon. 4. Additional stable findings as described above. Electronically signed by: Claude Smith M.D. 12/30/2018 9:22 PM Dictated: 12/30/182113 Transcribed: 12/30/182113 Code Status & VTE Plan Code Status FULL PG Care Time/CCT Total # of Minutes Spent Total Time Spent with Patient: Total time spent is greater than 50% in coordination of care (as documented) at patient's floor/unit and/or counseling patient: (1) Diabetes Diabetes mellitus complication status: without complication Diabetes mellitus senior care insulin use: without ocean transportation intermediary use Diabetes mellitus type: type 2 Qualified Code(s): E11.9 - Type 2 diabetes mellitus without complications (2) Gout Chronicity: unspecified Gout etiology: unspecified cause Gout site: unspecified site Qualified Code(s): M10.9 - Gout, unspecified (3) Hyperlipidemia Hyperlipidemia type: unspecified Qualified Code(s): E78.5 - Hyperlipidemia, unspecified (4) Peripheral neuropathy Peripheral neuropathy type: polyneuropathy, unspecified Qualified Code(s): G62.9 - Polyneuropathy, unspecified (5) Altered mental status Altered mental status type: unspecified Qualified Code(s): R41.82 - Altered mental status, unspecified (6) Hypertension Hypertension type: essential hypertension Qualified Code(s): I10 - Essential (primary) hypertension
--- NOTE | 2018-12-31 00:05 | Emergency Department Note ---
Entered by Kylee Urban acting as a scribe for Lon Hopkins DO History of Present Illness General Chief complaint: Unresponsive Time Seen by Provider: 12/30/18 18:54 Source: patient History of Present Illness Provider complaint: weakness Onset (ago): day(s) 3 Radiation: non-radiation Pain Consistency: + other (worsening) Relieved By: + none Exacerbated By: + none Associated symptoms: + loss of appetite and + other (-runny nose, -burning and pain during urination, +fatigue); no chest pain, no cough and no shortness of breath The patient is a 78 year old male who presents to the Emergency Room with co mplaints of worsening fatigue that started 3 days ago. Per the patients , the patient had indigestion on Sunday and was restless yesterday. She reports that he has had increased fatigue last night. She states that he did not wear his CPAP last night. She notes that she usually is able to get the patient to eat, but today she was only able to feed him his medication and water. She notes that at 1200, the patient was become less responsive and was only grunting. She states that he normally knows where he is and what year it is. She notes that he has a history of Parkinsons disease and a myocardial infarction 2 years ago. The patient states that everything hurts. He denies any cough, runny nose, burning and pain during urination, abdominal pain, chest pain, or shortness of breath. Home Medications Home Medications Medication Instructions Recorded Confirmed Type allopurinol 300 mg PO QAM 08/21/18 12/30/18 History aspirin 81 mg PO QAM 08/21/18 12/30/18 History bisacodyl [Dulcolax (bisacodyl)] 0 dose PO HS 08/21/18 12/30/18 History cholecalciferol (vitamin D3) 1,000 unit PO QAM 08/21/18 12/30/18 History [Vitamin D3] clopidogrel 75 mg PO QAM 08/21/18 12/30/18 History cyanocobalamin (vitamin B-12) 2,000 mcg PO QAM 08/21/18 12/30/18 History [Vitamin B-12] metformin 500 mg PO BID 08/21/18 12/30/18 History metoprolol succinate 25 mg PO QAM 08/21/18 12/30/18 History polyethylene glycol 3350 1 dose PO BID 08/21/18 12/30/18 History ranitidine HCl 150 mg PO BID 08/21/18 12/30/18 History sertraline 50 mg PO QAM 08/21/18 12/30/18 History gabapentin 300 mg capsule 300 mg PO TID #120 cap 11/05/18 12/30/18 Rx carbidopa-levodopa 2 tab PO TID 12/13/18 12/30/18 History lisinopril 2.5 mg PO QAM 12/13/18 12/30/18 History sertraline 25 mg PO QAM 12/13/18 12/30/18 History carbidopa 25 mg-levodopa 100 mg 1 tab PO .DAILY @ 1900 12/19/18 12/30/18 History tablet carbidopa ER 25 mg-levodopa 100 mg 1 tab PO HS 12/19/18 12/30/18 History tablet,extended release atorvastatin [Lipitor] 80 mg PO HS 12/30/18 12/30/18 History Allergies Allergy/AdvReac Type Severity Reaction Status Date / Time tramadol AdvReac Severe Confusion Unverified 12/30/18 20:06 Past Med/Surg History Medical History STEMI (ST elevation myocardial infarction) Falls (Acute) Anxiety (Chronic) Gout (Chronic) Peripheral neuropathy (Chronic) Cervical stenosis of spine (Resolved) Heart attack (Resolved) History of rhabdomyolysis (Resolved) Aortic regurgitation Hypertension Parkinson's disease Personal history of DVT (deep vein thrombosis) Sleep apnea Type 2 diabetes mellitus Surgical History History of cataract surgery (Resolved) History of right knee joint replacement (Resolved) H/O hemicolectomy Family History Other Medical history non-contributory Social History Preferred Language: Tajik Communication Ability: Effective 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 and A total of 10 systems reviewed and were otherwise negative Physical Exam Vital Signs Vital Signs - 24 hr 12/30/18 18:58 12/30/18 19:00 12/30/18 19:01 Temperature Temperature Source Sepsis Recent Fever Within 48 Hours Sepsis Action Taken by Nursing Pulse Rate 63 59 L 58 L Pulse Rate [Apical] Pulse Rate from SpO2 Sensor 59 L Pulse Rhythm Pulse Rhythm [Apical] Pulse Strength Respiratory Rate 22 15 20 Respiratory Effort / Characteristics Respiratory Depth Respiratory Pattern Blood Pressure 129/81 136/76 Blood Pressure [Right Arm] Blood Pressure Mean 97 96 Blood Pressure Mean [Right Arm] Blood Pressure Position Pulse Oximetry 95 Oxygen Delivery Method 12/30/18 19:05 12/30/18 19:30 12/30/18 19:33 Temperature 36.9 C Temperature Source Oral Sepsis Recent Fever Within 48 Hours No Sepsis Action Taken by Nursing No Action Required Pulse Rate 59 L 61 64 Pulse Rate [Apical] Pulse Rate from SpO2 Sensor Pulse Rhythm Regular Pulse Rhythm [Apical] Pulse Strength Normal Respiratory Rate 17 21 18 Respiratory Effort / Characteristics Non-Labored Respiratory Depth Normal Respiratory Pattern Regular Blood Pressure 136/76 121/85 Blood Pressure [Right Arm] Blood Pressure Mean 96 97 Blood Pressure Mean [Right Arm] Blood Pressure Position Lying Pulse Oximetry 95 Oxygen Delivery Method Room Air 12/30/18 20:00 12/30/18 20:30 12/30/18 20:32 Temperature Temperature Source Sepsis Recent Fever Within 48 Hours Sepsis Action Taken by Nursing Pulse Rate 63 62 61 Pulse Rate [Apical] Pulse Rate from SpO2 Sensor Pulse Rhythm Pulse Rhythm [Apical] Pulse Strength Respiratory Rate 16 16 18 Respiratory Effort / Characteristics Respiratory Depth Respiratory Pattern Blood Pressure 141/65 H 143/64 H Blood Pressure [Right Arm] Blood Pressure Mean 90 90 Blood Pressure Mean [Right Arm] Blood Pressure Position Pulse Oximetry Oxygen Delivery Method 12/30/18 20:33 12/30/18 21:49 12/30/18 23:00 Temperature Temperature Source Sepsis Recent Fever Within 48 Hours Sepsis Action Taken by Nursing Pulse Rate 70 59 L Pulse Rate [Apical] 60 Pulse Rate from SpO2 Sensor 59 L Pulse Rhythm Pulse Rhythm [Apical] Regular Pulse Strength Respiratory Rate 17 14 16 Respiratory Effort / Characteristics Non-Labored Spontaneous Respiratory Depth Normal Respiratory Pattern Regular Blood Pressure 147/71 H Blood Pressure [Right Arm] 120/79 Blood Pressure Mean 96 Blood Pressure Mean [Right Arm] 92 Blood Pressure Position Pulse Oximetry 94 100 Oxygen Delivery Method Room Air GENERAL: laying on stretcher, chronically-ill, disheveled, EYE EXAM: normal conjunctiva, PERRL EOM's intact. OROPHARYNX: no exudate, no erythema, lips, buccal mucosa, and tongue normal and mucous membranes are moist NECK: supple, no nuchal rigidity, no adenopathy, non-tender LUNGS: Clear to auscultation. Normal chest wall mechanics HEART: no murmurs, S1 normal and S2 normal ABDOMEN: abdomen soft, non-tender, normo-active bowel sounds, no masses, no rebound or guarding. BACK: Back is symmetrical on inspection and there is no deformity, no midline tenderness, no CVA tenderness. SKIN: no rashes and no bruising UPPER EXTREMITIES: upper extremities are grossly normal. LOWER EXTREMITIES: No pitting edema. NEURO EXAM: Difficulty to arouse. Awake, not orient to person, place, or year. Non-focal on exam. Course ED COURSE: Vital signs were reviewed and showed normal vitals The patients medical record was reviewed The above diagnostic studies were performed and reviewed. ED treatments and interventions as stated above. 1853: The patient was evaluated in room B5. A complete history and physical examination was performed. 2114: Upon reevaluation, the patient is more arousable. I discussed my findings with the patient and family understands and agrees with the treatment plan. Based on the patients age, coexisting illnesses, exam and lab findings the dec ision to treat as an inpatient was made. The patient remained stable while under my care. The patient will be evaluated for further management. Consultations Consultation #1: Dr. Jodi Nichols- [facility] Hospitalist Time: 22:15 Administered Medications Ioversol (Optiray 320 100ml) 93 ml IV ONCE PRN PRN Reason: Interaction Checking Stop: 01/03/19 21:26 Last Admin: 12/30/18 21:28 Dose: 1 ml Documented by: [id number] Discontinued Medications Sodium Chloride (Nss 1000ml) 1,000 mls @ 999 mls/hr IV .Q1H1M ONE Stop: 12/30/18 20:00 Last Infusion: 12/30/18 21:30 Dose: 0 mls/hr Documented by: [id number] Admin: 12/30/18 19:48 Dose: 999 mls/hr Documented by: [id number] Medical Decision Making Differential Diagnosis Differential diagnosis: Etiologies such as metabolic, infection, hypoglycemia, electrolyte abnormalities, cardiac sources, intracerebral event, toxicologic, neurologic, as well as others were entertained. Medical Records Attestation: I reviewed the patient's medical records. Home Medications Current Medication List: was personally reviewed by me Laboratory Data Attestation: I reviewed the patient's lab results. Result diagrams: 12/30/18 19:20 12/30/18 19:45 Lab Results 12/30/18 12/30/18 12/30/18 Range/Units 19:20 19:20 19:20 WBC 7.92 (4.8-10.8) K/uL RBC 3.50 L (4.7-6.1) M/uL Hgb 10.7 L (14.0-18.0) g/dL Hct 33.2 L (42-52) % MCV 94.9 (80-100) fL MCH 30.6 (25-34) pg MCHC 32.2 (32-36) g/dL RDW Std Deviation 48.4 H (36.4-46.3) fL RDW Coeff of Shilpa 14.0 (11.5-14.5) % Plt Count 224 (130-400) K/uL MPV 10.0 (7.4-10.4) fL Immature Gran % (Auto) 0.1 % Neut % (Auto) 57.3 % Lymph % (Auto) 23.6 % [place] % (Auto) 16.2 % Eos % (Auto) 2.7 % Baso % (Auto) 0.1 % Immature Gran # (Auto) 0.01 (0.00-0.02) K/uL Neut # (Auto) 4.54 (1.4-6.5) K/uL Lymph # (Auto) 1.87 (1.2-3.4) K/uL [place] # (Auto) 1.28 H (0.11-0.59) K/uL Eos # (Auto) 0.21 (0-0.5) K/uL Baso # (Auto) 0.01 (0-0.2) K/uL PT 11.6 (9.0-12.0) Seconds INR 1.1 (0.9-1.1) APTT 26.0 (21.0-31.0) Seconds PTT Ratio 1.0 VBG pH 7.38 (7.36-7.41) VBG pCO2 48 (38-50) mmHg VBG pO2 23 mmHg VBG HCO3 28 mmol/L VBG O2 Saturation < 60.0 % VBG Base Excess 1.9 mEq/L Barometric Pressure 729.3 mm/Hg Sodium (136-145) mmol/L Potassium (3.5-5.1) mmol/L Chloride (98-107) mmol/L Carbon Dioxide (21-32) mmol/L Anion Gap (3-11) BUN (7-18) mg/dl Creatinine (0.6-1.4) mg/dl Est Cr Clr Drug Dosing ml/min Est GFR ( Amer) Est GFR (Non-Af Amer) BUN/Creatinine Ratio (10-20) Glucose (70-99) mg/dl Lactate (0.4-2.0) mmol/L Calcium (8.5-10.1) mg/dl Total Bilirubin (0.2-1) mg/dl AST (15-37) U/L ALT (12-78) U/L Alkaline Phosphatase (45-117) U/L Total Protein (6.4-8.2) gm/dl Albumin (3.4-5.0) gm/dl Globulin (2.5-4.0) gm/dl Albumin/Globulin Ratio (0.9-2) Urine Color Urine Appearance (Clear) Urine pH (4.5-7.5) Ur Specific [place] (1.000-1.030) Urine Protein (Negative) Urine Glucose (UA) (Negative) Urine Ketones (Negative) Urine Blood (Negative) Urine Nitrite (Negative) Urine Bilirubin (Negative) Urine Urobilinogen (Negative) Ur Leukocyte Esterase (Negative) 12/30/18 12/30/18 12/30/18 Range/Units 19:20 19:45 20:00 WBC (4.8-10.8) K/uL RBC (4.7-6.1) M/uL Hgb (14.0-18.0) g/dL Hct (42-52) % MCV (80-100) fL MCH (25-34) pg MCHC (32-36) g/dL RDW Std Deviation (36.4-46.3) fL RDW Coeff of Shilpa (11.5-14.5) % Plt Count (130-400) K/uL MPV (7.4-10.4) fL Immature Gran % (Auto) % Neut % (Auto) % Lymph % (Auto) % [place] % (Auto) % Eos % (Auto) % Baso % (Auto) % Immature Gran # (Auto) (0.00-0.02) K/uL Neut # (Auto) (1.4-6.5) K/uL Lymph # (Auto) (1.2-3.4) K/uL [place] # (Auto) (0.11-0.59) K/uL Eos # (Auto) (0-0.5) K/uL Baso # (Auto) (0-0.2) K/uL PT (9.0-12.0) Seconds INR (0.9-1.1) APTT (21.0-31.0) Seconds PTT Ratio VBG pH (7.36-7.41) VBG pCO2 (38-50) mmHg VBG pO2 mmHg VBG HCO3 mmol/L VBG O2 Saturation % VBG Base Excess mEq/L Barometric Pressure mm/Hg Sodium 141 (136-145) mmol/L Potassium 4.3 (3.5-5.1) mmol/L Chloride 106 (98-107) mmol/L Carbon Dioxide 28 (21-32) mmol/L Anion Gap 6.0 (3-11) BUN 25 H (7-18) mg/dl Creatinine 1.46 H (0.6-1.4) mg/dl Est Cr Clr Drug Dosing 50.3 ml/min Est GFR ( Amer) 52.6 Est GFR (Non-Af Amer) 45.4 BUN/Creatinine Ratio 17.0 (10-20) Glucose 102 H (70-99) mg/dl Lactate 1.7 (0.4-2.0) mmol/L Calcium 8.9 (8.5-10.1) mg/dl Total Bilirubin 0.8 (0.2-1) mg/dl AST 15 (15-37) U/L ALT 8 L (12-78) U/L Alkaline Phosphatase 130 H (45-117) U/L Total Protein 7.3 (6.4-8.2) gm/dl Albumin 3.6 (3.4-5.0) gm/dl Globulin 3.7 (2.5-4.0) gm/dl Albumin/Globulin Ratio 1.0 (0.9-2) Urine Color Yellow Urine Appearance Clear (Clear) Urine pH 5.0 (4.5-7.5) Ur Specific [place] 1.018 (1.000-1.030) Urine Protein Negative (Negative) Urine Glucose (UA) Negative (Negative) Urine Ketones Negative (Negative) Urine Blood Negative (Negative) Urine Nitrite Negative (Negative) Urine Bilirubin Negative (Negative) Urine Urobilinogen Negative (Negative) Ur Leukocyte Esterase Negative (Negative) Imaging Data Radiologist's Impression: Radiology results as stated below per my review and the radiologist's interpretation: ABDOMEN AND PELVIS CT WITH IV CONTRAST CT DOSE: 1007.73 mGycm HISTORY: Generalized abdominal pain. TECHNIQUE: Multiaxial CT images of the abdomen and pelvis were performed following the use of intravenous contrast. A dose lowering technique was utilized adhering to the principles of ALARA. COMPARISON STUDY: Abdomen and pelvis CT 12/13/2018. FINDINGS: Bibasilar linear densities likely represent subsegmental atelectasis. No pneumoperitoneum. No pneumatosis. A few old, healed left-sided rib fractures are again noted. There is also healing left posterior 11th rib fracture, unchanged. No acute fractures identified. Suboptimal evaluation due to streak artifact from the patient's overlapping arms. The visualized gallbladder, adrenal glands, pancreas, and right kidney are unremarkable. A few punctate calcified granulomas within the liver and spleen. Stable hypodense lesions within the left kidney. These likely represent cysts. No hydronephrosis. No retroperitoneal lymphadenopathy. The bladder is unremarkable. No pelvic free fluid. Stable mild chronic thickening of the sigmoid colon distal to the anastomosis. Mild narrowing at the sigmoid anastomosis. Proximal to the anastomosis the colon is mildly distended measuring up to 7.8 cm in diameter. The majority of the colon is filled with liquid stool. A few borderline dilated gas and fluid-filled loops of small bowel within the abdomen. Prior right hemicolectomy. IMPRESSION: 1. Mildly dilated gas and fluid-filled colon to the level of the sigmoid anastomosis which demonstrates mild narrowing. However, there is stool distal to this location. There are also a few borderline dilated gas-filled loops of small bowel. Therefore, these findings favor an ileus. A low-grade partial large bowel obstruction due to the narrowing at the sigmoid anastomosis could also have a similar appearance but is considered less likely. 2. Liquid stool within the colon. This could represent a gastroenteritis/diarrhea illness. 3. Stable mild chronic thickening of the distal sigmoid colon. 4. Additional stable findings as described above. Electronically signed by: Claude Smith M.D. 12/30/2018 9:[address] CT DOSE: 2554.22 mGycm HISTORY: Altered mental status. TECHNIQUE: Multiaxial CT images of the head were performed without the use of intravenous contrast. Automated exposure control was utilized for this study. A dose lowering technique was utilized adhering to the principles of ALARA. Comparison: None. Findings: Motion artifact results in suboptimal evaluation. No definite mass, hematoma, midline shift, acute infarct. Mild atrophy and mild ligamentous ischemic changes are noted. The paranasal sinuses and mastoid air cells are clear. No calvarial fractures. Impression: Suboptimal evaluation due to the significant motion artifact. No definite acute intracranial abnormality. Electronically signed by: Claude Smith M.D. 12/30/2018 9:14 PM XR chest 1V portable CLINICAL HISTORY: 78 years-old Male presenting with Sepsis. TECHNIQUE: Portable upright AP view of the chest was obtained. COMPARISON: 12/13/2018. FINDINGS: Exaggerated thoracic kyphosis and ROMANSH patient rotation to grating image quality limiting diagnostic sensitivity the exam. Atherosclerosis of the aortic arch. Cardiac silhouette enlarged as on prior. No focal opacity. No large effusion or pneumothorax. Osseous structures normal. Upper abdomen normal. IMPRESSION: 1. Limited evaluation due to positioning. Allowing for this, no gross evidence of acute cardiopulmonary disease apart from cardiomegaly. Electronically signed by: John Alejandre M.D. 12/30/2018 7:34 PM ECG Data Attestation: I personally reviewed and interpreted this ECG as follows: Indication: altered mental status Rate (beats per minute): 56 Rhythm: sinus bradycardia Findings: + other (poor baseline), + T-wave inversion (lateral leads) and + left axis deviation Comparison ECG Date: from (08/21/18) Change: the following changes noted (TWI in lateral leads are new, TW flatening in inferior leads and Non specific ST wave abnormality is old) Blood Pressure Blood Pressure Findings: Elevated blood pressure Blood Pressure Disposition: further management by hospitalist MDM Narrative Patient is a 78-year-old male who presents the ER for altered mental status and lethargy since 12:00 today along with some associated questionable abdominal pain. Patient has been fairly unresponsive for the daughter. IV was established blood work was obtained and showed no significant leukocytosis. There is a mild anemia 10. INR was unremarkable. VBG was unremarkable. BMP with a slightly elevated creatinine 1.46. LFTs bilirubin was unremarkable. UA without any signs of infection. CT head was negative. CT abdomen pelvis questionable ileus versus early SBO. Chest x-ray was difficult to interpret. EKG was nondiagnostic. Discussed with family due to the confusion questionable SBO did elect to discuss with the hospitalist for observation. Impression & Plan Altered mental status, Ileus, Abdominal pain Discharge Plan Visit Data Chief Complaint: Unresponsive ED Provider: Lon Hopkins Discharge Problem: Altered mental status, Ileus, Abdominal pain Patient Disposition: Being Evaluated by Hospitalist Forms Stand Alone Forms: My [facility] Prescriptions Prescriptions: No Action gabapentin 300 mg capsule 300 mg PO TID Qty: 120 RF: 5 atorvastatin [Lipitor] 80 mg tablet 80 mg PO HS RF: 0 metformin 500 mg tablet 500 mg PO BID RF: 0 polyethylene glycol 3350 17 gram powder in packet 1 dose PO BID RF: 0 clopidogrel 75 mg tablet 75 mg PO QAM RF: 0 aspirin 81 mg tablet,delayed release (DR/EC) 81 mg PO QAM RF: 0 ranitidine HCl 150 mg tablet 150 mg PO BID RF: 0 allopurinol 300 mg tablet 300 mg PO QAM RF: 0 bisacodyl [Dulcolax (bisacodyl)] 5 mg tablet,delayed release (DR/EC) PO HS RF: 0 metoprolol succinate 25 mg tablet extended release 24 hr 25 mg PO QAM RF: 0 sertraline 50 mg tablet 50 mg PO QAM RF: 0 cyanocobalamin (vitamin B-12) [Vitamin B-12] 2,000 mcg Tablet Extended Release 2,000 mcg PO QAM RF: 0 cholecalciferol (vitamin D3) [Vitamin D3] 1,000 unit Tablet 1,000 unit PO QAM RF: 0 sertraline 25 mg tablet 25 mg PO QAM RF: 0 carbidopa-levodopa 25-100 mg tablet 2 tab PO TID RF: 0 lisinopril 2.5 mg tablet 2.5 mg PO QAM RF: 0 carbidopa-levodopa 25-100 mg tablet extended release 1 tab PO HS RF: 0 carbidopa-levodopa [Sinemet] 25-100 mg tablet 1 tab PO .DAILY @ 1900 RF: 0 Referrals Referrals: Nataly Davis MD [Primary Care Provider] - Discharge Problem: Altered mental status Qualifiers: Altered mental status type: unspecified Qualified Code(s): R41.82 - Altered mental status, unspecified Abdominal pain Qualifiers: Abdominal location: unspecified location Qualified Code(s): R10.9 - Unspecified abdominal pain The scribe's documentation has been prepared under my direction and personally reviewed by me in its entirety. I confirm that the note above accurately refle cts all work, treatment, procedures, and medical decision making performed by me.
[2018-12-31 00:50] LABS: Troponin I 0.016 ng/ml (0-0.045)
[2018-12-31] MEDS ORDERED: LACTATED RINGER'S 1,000 ML IV SCH (00:58)
[2018-12-31] MEDS ORDERED: DEXTROSE 5% IV SCH (00:58)
[2018-12-31] MEDS ORDERED: GLUCOSE 40% GEL 15 GM TUBE PO PRN (00:58)
[2018-12-31] MEDS ORDERED: GLUCOSE 10 TABS/TUBE PO PRN (00:58)
[2018-12-31] MEDS ORDERED: BISACODYL 10 MG SUPP PR PRN (00:58)
[2018-12-31] MEDS ORDERED: GLUCAGON FOR INJ 1 MG VIAL SQ PRN (00:58)
[2018-12-31] MEDS ORDERED: ONDANSETRON INJ 2 MG/ML 2 ML VIAL IV PRN (00:58)
[2018-12-31] MEDS ORDERED: CARBOHYDRATES FOR HYPOGLYCEMIA PO PRN (00:58)
[2018-12-31] MEDS ORDERED: DEXTROSE 50% 50 ML SYRINGE IV PRN (00:58)
[2018-12-31] MEDS ORDERED: RANITIDINE IV SCH (00:58)
[2018-12-31] MEDS ORDERED: Nursing to Pharmacy Communication ONE ×3 (01:35→21:50)
[2018-12-31] MEDS: METOPROLOL TARTRATE 1 MG/ML VIAL IV SCH ×3 (01:50→11:49)
[2018-12-31 02:23] LABS: Phosphorus 3.7 mg/dl (2.5-4.9)
[2018-12-31] MEDS: INSULIN ASPART 100 UNITS/ML 3 ML PEN SC SCH ×3 (05:24→21:54)
[2018-12-31 06:15] LABS: Basophils # (auto) 0.01 K/uL (0-0.2); Basophils % (auto) 0.1 %; Eosinophils % (auto) 2.6 %; Hematocrit (blood only) 30.8 % (42-52); Immature Granulocytes # (auto) 0.01 K/uL (0.00-0.02); Immature Granulocytes % (auto) 0.1 %; Lymphocytes # (auto) 1.64 K/uL (1.2-3.4); Lymphocytes % (auto) 21.6 %; Mean Corpuscular Hgb Conc 32.5 g/dL (32-36); Mean Corpuscular Volume 94.2 fL (80-100); Mean Platelet Volume 9.8 fL (7.4-10.4); Monocytes # (auto) 1.27 K/uL (0.11-0.59); Monocytes % (auto) 16.7 %; Neutrophils # (auto) 4.46 K/uL (1.4-6.5); Neutrophils % (auto) 58.9 %; Platelet Count 207 K/uL (130-400); RDW Coefficient of Variation 13.9 % (11.5-14.5); RDW Standard Deviation 47.9 fL (36.4-46.3); Red Blood Count 3.27 M/uL (4.7-6.1); White Blood Count 7.59 K/uL (4.8-10.8)
[2018-12-31 06:43] LABS: BUN Creatinine Ratio 16.2 (10-20); Calcium 8.3 mg/dl (8.5-10.1); Creatinine Clr Calc Pharmacy 55.6 ml/min; Est GFR (Non-African American) 51.8; Potassium 4.1 mmol/L (3.5-5.1)
[2018-12-31] MEDS ORDERED: INSULIN ASPART 100 UNITS/ML 3 ML PEN SC SCH ×2 (07:30→16:30)
[2018-12-31] MEDS ORDERED: POLYETHYLENE (MIRALAX) 17 GM PACK PO SCH (09:00)
[2018-12-31] MEDS ORDERED: CLOPIDOGREL BISULFATE 75 MG TAB PO SCH (09:00)
[2018-12-31] MEDS: GABAPENTIN 300 MG CAP PO SCH ×3 (10:07→21:03)
[2018-12-31] MEDS: ASPIRIN 81 MG ECTAB PO SCH (10:08)
[2018-12-31] MEDS: CARBIDOPA/LEVODOPA 25/100MG TAB PO SCH ×4 (10:09→21:49)
[2018-12-31] MEDS ORDERED: SERTRALINE HCL 50 MG TABLET PO SCH (13:00)
--- NOTE | 2018-12-31 13:01 | Hospitalist Progress Note ---
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 Mental status has improved with administration of IVF. Patient is now near baseline per family. Was likely secondary to dehydration given BRIAN, or possible ileus -resolved (2) Ileus: Patient with history of the same and has chronically distended colon on imaging with narrowing at his colonic anastamosis site -moved bowels last night, now feeling better but has persistent abd distension -consulted GI--> appreciate recommendations to stop meds if possible that can worsen ileus--> cannot stop Sinemet as per daughter but will hold allopurinol, consider decreasing gabapentin -start Bisacodyl NV bid scheduled -continue po bisacodyl, Miralax bid as per home meds -replete lytes when needed -no need for scope but will hold Plavix just in case as per GI suggestion -continue IVFs -will allow clears as clinically he is improved -follow [place] (3) Parkinson's disease: Progressive disease. Patient was recently admitted with worsening gait and hallucinations. He is on Carbidopa/Levodopa. Follows with Neurology -Continue Sinemet at home dosage-changed times with pharmacy--> should be 0730/1130/1500 for daytime doses, then at 1900 and then XR version at 2300 -Delirium prevention strategies -follows with Dr. Soriano at [facility] (4) Pseudoobstruction of colon: as above, chronically distended colon on imaging, frequent ileus -continue aggressive bowel regimen as above -secondary to h/o bowel surgeries and PD, medication side effect (5) History of coronary artery disease: Patient s/p STEMI in April 2018. No stent was placed. Presently without CP. No EKG evidence of ischemia. -Continue ASA and restart home po Toprol, dc IV lopressor -hold Plavix in case needs scope -restart statin (6) Gout: No acute flare in many years -Hold Allopurinol for ileus as per GI (7) Hypertension: Blood pressure controlled -restart home Lisinopril and metoprolol (8) Diabetes: Well controlled on Metformin -Hold Metformin while inpatient -ISS (9) Ischemic cardiomyopathy: With h/o STEMI 2017 LVEF 30-35% in 08/2018 on ECHO Not volume overloaded, is currently now euvolemic after gentle IVFs since admission -continue metoprolol,lisinopril - dcd IVFs, no diuretics needed (10) LEN on CPAP: Has CPAP at home-daughter reports she can bring it from home, but as long as he sleeps sitting sei-inclined in bed, he doesn't have any apnea (11) Major depressive disorder: stable -restart sertraline 75mg daily (12) History of hemicolectomy: for h/o volvulus in 2017 (13) Hyperlipidemia: Chronic -resume lipitor (14) Peripheral neuropathy: chronic -Continue home Neurontin TID and consider lowering dose as can contribute to ileus (15) CKD (chronic kidney disease) stage 3, GFR 30-59 ml/min: GFR<60 typically Baseline diamond grader 1.1 with BRIAN as below -avoid nephrotoxins -renally dose meds when appropriate (16) BRIAN (acute kidney injury): Corn Sheller increased to 1.46 on admission, baseline 1.1 -improved to 1.3 with IVFs now (17) DVT prophylaxis: add TEDs, SCDs no heparin in case of procedure with GI Dispo-remain on PCU PT/OT evals placed--> daughter and pt only agreeable to rehab placemetn if accepted to [facility] if deemed necessary Subjective Pt was seen at lunchtime and he was alert, interactive, pleasant. He was eating clear liquids and said he was hungry. Denies any abd pain except when pushed upon. Denies N/V. Said he is passing some flatus and had a small BM last night, but none so far today. Denies headache, not lightheaded, no CP or SOB. Daughter reports he is much improved from yesterday when he was not interactive at all and was not wanting to eat. She tells me also that his SInemet dosing is not correct here. I discussed his case with GI PANEL SAW OPERATOR. Tele with sinus arrhythmia, PVCs, rates in the 60s Review of Systems Review of Systems: All systems reviewed & are unremarkable except as noted in HPI & below Physical Exam Constitutional: well developed and + obese; no acute distress Eyes: PERRL, conjunctivae normal, anicteric sclerae ENMT: external ear and nose normal, oropharynx normal Neck: trachea midline, no thyromegaly (cannot extend the neck) Respiratory: normal respiratory effort, lungs clear to auscultation Cardiovascular: Rate/Rhythm: regular rate and regular rhythm Extremities: + edema (trace pitting edema legs bilat) Gastrointestinal (Abdomen): Inspection/Auscultation: + abdomen distended (mildly) and normal bowel sounds Percussion/Palpation: + abdomen tender (mild, in right side without guarding or rebound) and abdomen soft; no guarding, abdomen not rigid, no hernia and no abdominal mass Musculoskeletal: Extremities: extremities normal to inspection; no cyanosis and no clubbing Skin: no rashes, warm and dry Neurologic: moves all extremities and awake Motor/Sensory: no tremor Psychiatric: Orientation: alert, oriented to person, oriented to place and cooperative Results & Data Vital Signs (Past 12 Hours) Vital Signs Temp Pulse Pulse Pulse Resp BP BP 12/31/18 11:49 66 136/76 12/31/18 11:04 37.0 C 62 18 152/75 H 12/31/18 07:15 36.9 C 61 16 12/31/18 05:24 59 L 12/31/18 04:00 36.8 C 66 18 12/31/18 01:50 55 L BP Pulse Ox 12/31/18 11:49 12/31/18 11:04 93 12/31/18 07:15 155/71 H 95 12/31/18 05:24 12/31/18 04:00 130/52 L 96 12/31/18 01:50 Laboratory Results 12/31/18 12/31/18 12/31/18 Range/Units 21:44 16:40 11:48 WBC (4.8-10.8) K/uL RBC (4.7-6.1) M/uL Hgb (14.0-18.0) g/dL Hct (42-52) % MCV (80-100) fL MCH (25-34) pg MCHC (32-36) g/dL RDW Std Deviation (36.4-46.3) fL RDW Coeff of Shilpa (11.5-14.5) % Plt Count (130-400) K/uL MPV (7.4-10.4) fL Immature Gran % (Auto) % Neut % (Auto) % Lymph % (Auto) % Evans % (Auto) % Eos % (Auto) % Baso % (Auto) % Immature Gran # (Auto) (0.00-0.02) K/uL Neut # (Auto) (1.4-6.5) K/uL Lymph # (Auto) (1.2-3.4) K/uL Evans # (Auto) (0.11-0.59) K/uL Eos # (Auto) (0-0.5) K/uL Baso # (Auto) (0-0.2) K/uL Sodium (136-145) mmol/L Potassium (3.5-5.1) mmol/L Chloride (98-107) mmol/L Carbon Dioxide (21-32) mmol/L Anion Gap (3-11) BUN (7-18) mg/dl Creatinine (0.6-1.4) mg/dl Est Cr Clr Drug Dosing ml/min Est GFR ( Amer) Est GFR (Non-Af Amer) BUN/Creatinine Ratio (10-20) Glucose (70-99) mg/dl POC Glucose 88 106 H 96 (70-99) Calcium (8.5-10.1) mg/dl Phosphorus (2.5-4.9) mg/dl Magnesium (1.8-2.4) mg/dl Troponin I (0-0.045) ng/ml 12/31/18 12/31/18 12/31/18 Range/Units 08:14 05:55 05:55 WBC 7.59 (4.8-10.8) K/uL RBC 3.27 L (4.7-6.1) M/uL Hgb 10.0 L (14.0-18.0) g/dL Hct 30.8 L (42-52) % MCV 94.2 (80-100) fL MCH 30.6 (25-34) pg MCHC 32.5 (32-36) g/dL RDW Std Deviation 47.9 H (36.4-46.3) fL RDW Coeff of Shilpa 13.9 (11.5-14.5) % Plt Count 207 (130-400) K/uL MPV 9.8 (7.4-10.4) fL Immature Gran % (Auto) 0.1 % Neut % (Auto) 58.9 % Lymph % (Auto) 21.6 % Evans % (Auto) 16.7 % Eos % (Auto) 2.6 % Baso % (Auto) 0.1 % Immature Gran # (Auto) 0.01 (0.00-0.02) K/uL Neut # (Auto) 4.46 (1.4-6.5) K/uL Lymph # (Auto) 1.64 (1.2-3.4) K/uL Evans # (Auto) 1.27 H (0.11-0.59) K/uL Eos # (Auto) 0.20 (0-0.5) K/uL Baso # (Auto) 0.01 (0-0.2) K/uL Sodium 140 (136-145) mmol/L Potassium 4.1 (3.5-5.1) mmol/L Chloride 106 (98-107) mmol/L Carbon Dioxide 29 (21-32) mmol/L Anion Gap 5.0 (3-11) BUN 21 H (7-18) mg/dl Creatinine 1.31 (0.6-1.4) mg/dl Est Cr Clr Drug Dosing 55.6 ml/min Est GFR ( Amer) 60.0 Est GFR (Non-Af Amer) 51.8 BUN/Creatinine Ratio 16.2 (10-20) Glucose 90 (70-99) mg/dl POC Glucose (70-99) Calcium 8.3 L (8.5-10.1) mg/dl Phosphorus (2.5-4.9) mg/dl Magnesium (1.8-2.4) mg/dl Troponin I < 0.015 (0-0.045) ng/ml 12/31/18 12/31/18 Range/Units 05:23 00:09 WBC (4.8-10.8) K/uL RBC (4.7-6.1) M/uL Hgb (14.0-18.0) g/dL Hct (42-52) % MCV (80-100) fL MCH (25-34) pg MCHC (32-36) g/dL RDW Std Deviation (36.4-46.3) fL RDW Coeff of Shilpa (11.5-14.5) % Plt Count (130-400) K/uL MPV (7.4-10.4) fL Immature Gran % (Auto) % Neut % (Auto) % Lymph % (Auto) % Evans % (Auto) % Eos % (Auto) % Baso % (Auto) % Immature Gran # (Auto) (0.00-0.02) K/uL Neut # (Auto) (1.4-6.5) K/uL Lymph # (Auto) (1.2-3.4) K/uL Evans # (Auto) (0.11-0.59) K/uL Eos # (Auto) (0-0.5) K/uL Baso # (Auto) (0-0.2) K/uL Sodium (136-145) mmol/L Potassium (3.5-5.1) mmol/L Chloride (98-107) mmol/L Carbon Dioxide (21-32) mmol/L Anion Gap (3-11) BUN (7-18) mg/dl Creatinine (0.6-1.4) mg/dl Est Cr Clr Drug Dosing ml/min Est GFR ( Amer) Est GFR (Non-Af Amer) BUN/Creatinine Ratio (10-20) Glucose (70-99) mg/dl POC Glucose 74 (70-99) Calcium (8.5-10.1) mg/dl Phosphorus 3.7 (2.5-4.9) mg/dl Magnesium 2.0 (1.8-2.4) mg/dl Troponin I 0.016 (0-0.045) ng/ml PG Care Time/CCT Total # of Minutes Spent Total Time Spent with Patient: Total time spent is greater than 50% in coordination of care (as documented) at patient's floor/unit and/or counseling patient: (1) Diabetes Diabetes mellitus complication status: without complication Diabetes mellitus skilled nursing insulin use: without intermediate accountant use Diabetes mellitus type: type 2 Qualified Code(s): E11.9 - Type 2 diabetes mellitus without complications (2) Gout Chronicity: unspecified Gout etiology: unspecified cause Gout site: unspecified site Qualified Code(s): M10.9 - Gout, unspecified (3) Hyperlipidemia Hyperlipidemia type: unspecified Qualified Code(s): E78.5 - Hyperlipidemia, unspecified (4) Peripheral neuropathy Peripheral neuropathy type: polyneuropathy, unspecified Qualified Code(s): G62.9 - Polyneuropathy, unspecified (5) Altered mental status Altered mental status type: unspecified Qualified Code(s): R41.82 - Altered mental status, unspecified (6) Hypertension Hypertension type: essential hypertension Qualified Code(s): I10 - Essential (primary) hypertension
[2018-12-31] MEDS ORDERED: ALLOPURINOL 300 MG TAB PO SCH (13:30)
--- NOTE | 2018-12-31 13:49 | XRay Report ---
XR KUB/Abdomen 1 view CLINICAL HISTORY: Ileus. Follow-up study. COMPARISON STUDY: 08/27/2018 FINDINGS: The study was performed on a portable supine fashion. There is contrast within the bladder. There is persistent gaseous distention of the colon with bowel loops measuring up to 9 cm in diamete r. There is a paucity of distal left colonic gas. IMPRESSION: Persistent gaseous distention of the colon measuring up to 9 cm. There is a paucity of g as within the distal left colon. Electronically signed by: Rony Melgar M.D. 12/31/2018 1:48 PM
[2018-12-31] MEDS: LISINOPRIL 2.5 MG TAB PO SCH (14:24)
[2018-12-31] MEDS: SERTRALINE HCL 50 MG TABLET PO SCH (14:24)
[2018-12-31] MEDS ORDERED: BISACODYL 10 MG SUPP PR STA (14:30)
--- NOTE | 2018-12-31 14:56 | Gastrointestinal Consultation ---
Date of Consultation December 31, 2018 Assessment & Plan (1) Ileus: Colonic ileus, likely secondary to Parkinson's Disease or Meds, specifically Carbidopa/Levodopa. Allopurinol can sometimes cause slow GI motility. Finding of 9cm colon diameter likely chronic for him as imaging in August 9cm. Recommendations: Hold Clopidogrel, temporarily, in case we need to do an endoscopic procedure. Consider cutting Carbidopa/Levodopa in half for a few days. Daily KUBs. Blood, urine cultures - appreciate primary hospitalists management in ruling out infection. Bowel regime: Increase Miralax to TID, add dulcolax suppositories BID, continue night time dulcolax tab. No plan for endoscopy at this time. Present on Admission?: Yes Supervising Physician Co-Signing Physician Notes I have seen and examined the patient and discussed the management with TRAVIS Pinto. PE significant for patient who opens his eyes, moves his extremities, no verbal interaction. Much history from his daughter. Labs and imaging reviewed Colonic distension cezar the same as last imaging in 09/06. Further plan of care as per Chandler's assessment. History of Present Illness Reason for Consultation: Recurrent Colonic Ileus Requesting Physician: Dr. Carmen Simmons Attending Physician: Carmen Simmons MD History of Present Illness Mr. Kendell Montalvo is a 78 yr old male pt with a hx of Parkinson's, DM, CAD NSTEMI in 2018 on ASA 81mg, sleep apnea, HTN, who was brought to [facility] yesterday for increased somnolence and decreased PO intake as well as abdominal distention. He is known to our group as he was seen for colonic ileus in 2017 and again in August 2018, thought secondary to Parkinson's disease and side effect of Parkinson's meds. He underwent colonoscopy in November [address] Singh for constipation with findings of a sigmoid colon end to end anastomosis and internal/external hemorrhoids. His daughter Victoria Bustamante is at the bedside and she is the medical POA. Her phone number is: [phone]. She tells us that he has had decreased appetite and mild "indigestion" since Wednesday 12/27. He has eaten just soup and crackers the past 3-4 days. He was good about taking his Miralax and Dulcolax during this time. Starting at 3PM yesterday, he was very lethargic, was no longer able or willing to drink liquids or take his po meds, so family brought him to the ED. His typical bowel regime is: Miralax one BID, Dulcolax 5mg QHS. He also has Dulcolax suppositories but hasn't needed to take these. He has continued to move his bowels. His most recent consisted of a moderate size brown BM around midnight (15 hrs ago) and prior to that on Sunday morning. He also continues to pass gas today. He does not seem to be tender on exam. On arrival,CT was suggestive of colon ileus and largest colon measurement at 7.8cm with slight dilation upstream. KUB today with 9cm colon diameter. Allergies Allergy/AdvReac Type Severity Reaction Status Date / Time tramadol AdvReac Severe Confusion Unverified 12/30/18 20:06 Home Medications Home Medications Medication Instructions Recorded Confirmed Type allopurinol 300 mg PO QAM 08/21/18 12/30/18 History aspirin 81 mg PO QAM 08/21/18 12/30/18 History bisacodyl [Dulcolax (bisacodyl)] 0 dose PO HS 08/21/18 12/30/18 History cholecalciferol (vitamin D3) 1,000 unit PO QAM 08/21/18 12/30/18 History [Vitamin D3] clopidogrel 75 mg PO QAM 08/21/18 12/30/18 History cyanocobalamin (vitamin B-12) 2,000 mcg PO QAM 08/21/18 12/30/18 History [Vitamin B-12] metformin 500 mg PO BID 08/21/18 12/30/18 History metoprolol succinate 25 mg PO QAM 08/21/18 12/30/18 History polyethylene glycol 3350 1 dose PO BID 08/21/18 12/30/18 History ranitidine HCl 150 mg PO BID 08/21/18 12/30/18 History sertraline 50 mg PO QAM 08/21/18 12/30/18 History gabapentin 300 mg capsule 300 mg PO TID #120 cap 11/05/18 12/30/18 Rx carbidopa-levodopa 2 tab PO TID 12/13/18 12/30/18 History lisinopril 2.5 mg PO QAM 12/13/18 12/30/18 History sertraline 25 mg PO QAM 12/13/18 12/30/18 History carbidopa 25 mg-levodopa 100 mg 1 tab PO .DAILY @ 1900 12/19/18 12/30/18 History tablet carbidopa ER 25 mg-levodopa 100 mg 1 tab PO HS 12/19/18 12/30/18 History tablet,extended release atorvastatin [Lipitor] 80 mg PO HS 12/30/18 12/30/18 History Patient History Medical History STEMI (ST elevation myocardial infarction) Falls (Acute) Anxiety (Chronic) Gout (Chronic) Peripheral neuropathy (Chronic) Cervical stenosis of spine (Resolved) Heart attack (Resolved) History of rhabdomyolysis (Resolved) Aortic regurgitation Hypertension Parkinson's disease Personal history of DVT (deep vein thrombosis) Sleep apnea Type 2 diabetes mellitus Surgical History History of cataract surgery (Resolved) History of right knee joint replacement (Resolved) H/O hemicolectomy Family History Other Medical history non-contributory Social History Preferred Language: Kosovan Communication Ability: Effective [employer] Internship Required: No Beliefs That Will Affect Care: None marital status: / Current Living Situation: Alone Current Living Situation Comment: Uses a walker and wheelchair at home Feels Safe at Home: Yes Smoking Status: Never smoker Tobacco Type: pipe and cigars ; Cigarettes Per Day: quit 20 yrs ago ; Second Hand Exposure: No ; Hx Alcohol Use: No Hx Substance Use: No Review of Systems Review of Systems: ROS obtained from venu at bedside. Constitutional: + weakness; no fever and no chills less alert Eyes: no problem reported Ear, Nose, Mouth, Throat: no dizziness, no hoarseness and no problem reported Respiratory: no cough, no chest congestion and no wheezing Cardiovascular: no chest pain and no syncope Gastrointestinal: + abdominal pain; no vomiting and no change in stools Genitourinary: no dysuria and no hematuria Integumentary: no rash Neurologic: + tremor(s) (increased during admission - daughter believes due to being late on Parkinson's meds) Endocrine: + fatigue Allergy / Immunological: no cough, no dyspnea and no rash Physical Exam Constitutional: WD/WN, vitals as above + ill appearing, + obese, cooperative and comfortable ENMT: external ear and nose normal, oropharynx normal Neck: trachea midline, no thyromegaly Respiratory: normal respiratory effort, lungs clear to auscultation Cardiovascular: RRR, no murmur, no edema Vessels: no JVD Extremities: no edema Gastrointestinal (Abdomen): Inspection/Auscultation: normal bowel sounds (no tympanic sounds); abdomen not distended Percussion/Palpation: + abdomen tender (no pt c/o tenderness on deep palpation of the entire abdomen) and abdomen soft Skin: no rashes, warm and dry + turgor decreased; no jaundice Neurologic: awake (awakens with tactile and verbal stimulation, but typically eyes closed) Speech / Cognition: + abnormal speech (does not attempt to answer questions today) Motor/Sensory: + tremor (very tremulous/jerky motions with arms. ) Psychiatric: Eye Contact: + poor eye contact Results & Data Vital Signs (Past 12 Hours) Vital Signs Temp Pulse Pulse Pulse Resp BP BP 12/31/18 11:49 66 136/76 12/31/18 11:04 37.0 C 62 18 152/75 H 12/31/18 07:15 36.9 C 61 16 12/31/18 05:24 59 L 12/31/18 04:00 36.8 C 66 18 BP Pulse Ox 12/31/18 11:49 12/31/18 11:04 93 12/31/18 07:15 155/71 H 95 12/31/18 05:24 12/31/18 04:00 130/52 L [address] abd/pelvis on 12/30/18 with IV contrast: . Mildly dilated gas and fluid-filled colon to the level of the sigmoid anastomosis which demonstrates mild narrowing. However, there is stool distal to this location. There are also a few borderline dilated gas-filled loops of small bowel. Therefore, these findings favor an ileus. A low-grade partial large bowel obstruction due to the narrowing at the sigmoid anastomosis could also have a similar appearance but is considered less likely. 2. Liquid stool within the colon. This could represent a gastroenteritis/diarrhea illness. 3. Stable mild chronic thickening of the distal sigmoid colon. 4. Additional stable findings as described above.
[2018-12-31] MEDS ORDERED: BISACODYL 10 MG SUPP PR SCH (21:00)
[2018-12-31] MEDS: POLYETHYLENE (MIRALAX) 17 GM PACK PO SCH (21:02)
[2018-12-31] MEDS: ATORVASTATIN 40 MG TAB PO SCH (21:04)
[2018-12-31] MEDS: CARBIDOPA/LEVODOPA 25/100MG EXT REL TAB PO SCH (21:10)
[2018-12-31] MEDS: BISACODYL 5 MG TABEC PO SCH (21:10)
[2019-01-01] MEDS ORDERED: INSULIN ASPART 100 UNITS/ML 3 ML PEN SC SCH
[2019-01-01 05:48] LABS: Basophils # (auto) 0.02 K/uL (0-0.2); Basophils % (auto) 0.2 %; Eosinophils # (auto) 0.11 K/uL (0-0.5); Eosinophils % (auto) 1.3 %; Hematocrit (blood only) 33.2 % (42-52); Hemoglobin 10.7 g/dL (14.0-18.0); Immature Granulocytes # (auto) 0.02 K/uL (0.00-0.02); Immature Granulocytes % (auto) 0.2 %; Lymphocytes # (auto) 1.35 K/uL (1.2-3.4); Lymphocytes % (auto) 16.4 %; Mean Corpuscular Hgb Conc 32.2 g/dL (32-36); Mean Corpuscular Volume 93.8 fL (80-100); Mean Platelet Volume 10.2 fL (7.4-10.4); Monocytes # (auto) 1.15 K/uL (0.11-0.59); Neutrophils # (auto) 5.59 K/uL (1.4-6.5); Neutrophils % (auto) 67.9 %; Platelet Count 208 K/uL (130-400); RDW Coefficient of Variation 13.9 % (11.5-14.5); RDW Standard Deviation 47.6 fL (36.4-46.3); Red Blood Count 3.54 M/uL (4.7-6.1); White Blood Count 8.24 K/uL (4.8-10.8)
[2019-01-01] MEDS ORDERED: CALCIUM CARBONATE 500 MG CHEWABLE TAB PO ONE (05:55)
[2019-01-01 06:20] LABS: BUN Creatinine Ratio 15.2 (10-20); Calcium 8.5 mg/dl (8.5-10.1); Creatinine Clr Calc Pharmacy 56.4 ml/min; Est GFR (African American) 61.1; Est GFR (Non-African American) 52.8; Magnesium 1.8 mg/dl (1.8-2.4); Phosphorus 3.6 mg/dl (2.5-4.9); Potassium 3.7 mmol/L (3.5-5.1)
--- NOTE | 2019-01-01 07:09 | XRay Report ---
XR KUB/Abdomen 1 view CLINICAL HISTORY: colonic ileus. Measure colon diameter COMPARISON STUDY: 12/31/2018 FINDINGS: There is gaseous distention of the stomach. There is gas present within colonic and small b owel loops. The colon measures 5.5 cm in transverse diameter. IMPRESSION: 1. Decreased colonic distention. The colon measures 5.5 cm in transverse diameter 2. Increasing gastric distention Electronically signed by: Rony Melgar M.D. 01/01/2019 7:07 AM
[2019-01-01] MEDS: INSULIN ASPART 100 UNITS/ML 3 ML PEN SC SCH ×4 (07:56→21:29)
[2019-01-01] MEDS: CARBIDOPA/LEVODOPA 25/100MG TAB PO SCH ×4 (07:58→19:27)
--- NOTE | 2019-01-01 09:04 | Gastroenterology Progress Note ---
Date of Service January 01, 2019 Assessment & Plan (1) Pseudoobstruction of colon: 78 year old male w/ PD admitted w/ colonic ileus, clincally feeling well, passing gas and tolerating diet with improving colonic dilation on KUB Daily KUBs TID Miralax Dulcolax tab HS BID Dulcolax suppositories No current indication for endoscopic evaluation If pt develops nausea/vomiting would recommend NG tube placement given gastric distention on KUB Present on Admission?: Yes Supervising Physician Co-Signing Physician Notes I have seen and examined the patient and discussed the management with TRAVIS Glass. Overnight- had bowel movements, walking the halls this morning, eating food this morning. PE - more alert today, CV- rrr no mrg, Pulm - ctab, abd - soft nt nd +bs Labs reviewed Imaging reviewed Would keep adjustment of parkinson's meds for 1 more day, continue current BR. Would hold plavix for today- if continuing improvement tomorrow, resume regular outpatient parkinson's regimen and resume plavix. Subjective Pt was seen and evaluated, chart reviewed. Family at bedside. Just finished breakfast. Answering questions appropriately. Tolerated 100%. No nausea, vomiting. No abdominal pain. Having loose stools. No black/bloody stools. KUB w/ gastric distention but improving colonic dilation Review of Systems Constitutional: no fever and no chills Respiratory: no cough and no dyspnea Cardiovascular: no chest pain and no syncope Gastrointestinal: + diarrhea/loose stools; no abdominal pain, no nausea, no vomiting and no blood in stools Physical Exam Constitutional: WD/WN, vitals as above Neck: trachea midline Respiratory: normal respiratory effort; no respiratory distress Auscultation: no crackles Cardiovascular: RRR, no murmur, no edema Gastrointestinal (Abdomen): Inspection/Auscultation: normal bowel sounds Percussion/Palpation: abdomen soft; no guarding, abdomen not rigid and no abdominal mass Skin: no rashes, warm and dry Results & Data Vital Signs (Past 12 Hours) Vital Signs Temp Pulse Resp BP BP Pulse Ox 01/01/19 07:15 37.1 C 69 16 139/64 95 01/01/19 03:53 36.4 C L 65 16 144/77 H 94 12/31/18 23:32 36.8 C 66 18 141/69 H 93
[2019-01-01] MEDS: CHOLECALCIFEROL 1,000 UNITS TAB PO SCH (09:29)
[2019-01-01] MEDS: LISINOPRIL 2.5 MG TAB PO SCH (09:29)
[2019-01-01] MEDS: SERTRALINE HCL 50 MG TABLET PO SCH (09:30)
[2019-01-01] MEDS: ASPIRIN 81 MG ECTAB PO SCH (09:30)
[2019-01-01] MEDS: CYANOCOBALAMIN 500 MCG TABLET (VITAMIN B-12) PO SCH (09:30)
[2019-01-01] MEDS: GABAPENTIN 300 MG CAP PO SCH ×2 (09:31→21:26)
[2019-01-01] MEDS: METOPROLOL SUCC 25MG EXT REL TAB PO SCH (09:31)
[2019-01-01] MEDS: POLYETHYLENE (MIRALAX) 17 GM PACK PO SCH ×3 (09:32→21:26)
--- NOTE | 2019-01-01 10:06 | Hospitalist Progress Note ---
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 Mental status has improved with administration of IVF. Patient is now near baseline per family. Was likely secondary to dehydration given BRIAN, or possible ileus -almost completely resolved (2) Ileus: Patient with history of the same and has chronically distended colon on imaging with narrowing at his colonic anastamosis site -moved bowels numerous times last night with aggressive bowel regimen -consulted GI--> appreciate recommendations to stop meds if possible that can worsen ileus--> cannot stop Sinemet as per daughter but will hold allopurinol,and daughter ok with decreasing gabapentin--> go down to 300mg bid for now and further wean after that if no return of paresthesias or pain -will hold Bisacodyl AK bid scheduled now for multiple loose BMs -continue po bisacodyl hs, Miralax increased to tid by GI -replete lytes when needed -no need for scope but will continue to hold Plavix just in case as per GI suggestion IVFs dcd -will advance to full liquids -give TUMS for indigestion -follow KUB daily (3) Parkinson's disease: Progressive disease. Patient was recently admitted with worsening gait and hallucinations but these are chronic. He is on Carbidopa/Levodopa. Follows with Neurology -Continue Sinemet at home dosage-times of admin are 0730/1130/1500 for daytime doses, then at 1900 and then XR version at 2300 -Delirium prevention strategies -follows with Dr. Soriano at [facility] (4) Pseudoobstruction of colon: as above, chronically distended colon on imaging, frequent ileus -continue aggressive bowel regimen as above -secondary to h/o bowel surgeries and PD, medication side effect (5) History of coronary artery disease: Patient s/p STEMI in April 2018. No stent was placed. Presently without CP. No EKG evidence of ischemia. -Continue ASA and Toprol -holding Plavix in case needs scope -continue statin (6) Gout: No acute flare in many years -dcd Allopurinol as can contribute to ileus as per GI (7) Hypertension: Blood pressure controlled -continue home Lisinopril and metoprolol (8) Diabetes: Well controlled on Metformin -Hold Metformin while inpatient -ISS (9) Ischemic cardiomyopathy: With h/o STEMI 2017 LVEF 30-35% in 08/2018 on ECHO Not volume overloaded, is currently now euvolemic after gentle IVFs since admission -continue metoprolol,lisinopril - dcd IVFs, no diuretics needed (10) LEN on CPAP: Has CPAP at home-daughter reports she can bring it from home, but as long as he sleeps sitting semi-inclined in bed, he doesn't have any apnea (11) Major depressive disorder: stable -continue sertraline 75mg daily (12) History of hemicolectomy: for h/o volvulus in 2017 (13) Hyperlipidemia: Chronic -continue statin (14) Peripheral neuropathy: chronic -Continue home Neurontin but will be lowering dose as can contribute to ileus- changed to 300mg bid (15) CKD (chronic kidney disease) stage 3, GFR 30-59 ml/min: GFR<60 typically 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 as below -avoid nephrotoxins -renally dose meds when appropriate (16) BRIAN (acute kidney injury): 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 KUB reviewed and appears much less distended in colon but has distended stomach with gas. Daughter says he earlier was reporting indigestion but he currently denies this. He is not quite back to his baseline mental status yet as per daughter. He did walk with a walker about 50 feet today with PT. Denies CP or SOB, denies nausea or abd pain. Tele with NSR, rates 80s Review of Systems Review of Systems: All systems reviewed & are unremarkable except as noted in HPI & below Physical Exam Constitutional: well developed (sitting in wheelchair. scooting self around the room) and + obese; no acute distress ENMT: external ear and nose normal, oropharynx normal Neck: trachea midline, no thyromegaly (cannot extend the neck) Respiratory: normal respiratory effort, lungs clear to auscultation Cardiovascular: RRR, no murmur, no edema Rate/Rhythm: regular rate and regular rhythm Extremities: no edema (resolved) Gastrointestinal (Abdomen): normal bowel sounds, soft, nontender, no hepatosplenomegaly Inspection/Auscultation: + abdomen distended (mildly) and normal bowel sounds Musculoskeletal: Extremities: extremities normal to inspection; no cyanosis and no clubbing Skin: no rashes, warm and dry Neurologic: moves all extremities and awake Motor/Sensory: no tremor Psychiatric: Orientation: alert and cooperative Eye Contact: + poor eye contact (looking at the floor) Results & Data Vital Signs (Past 12 Hours) Vital Signs Temp Pulse Resp BP BP Pulse Ox 01/01/19 07:15 37.1 C 69 16 139/64 95 01/01/19 03:53 36.4 C L 65 16 144/77 H 94 12/31/18 23:32 36.8 C 66 18 141/69 H 93 Laboratory Results 01/01/19 01/01/19 01/01/19 Range/Units 07:38 05:31 05:31 WBC 8.24 (4.8-10.8) K/uL RBC 3.54 L (4.7-6.1) M/uL Hgb 10.7 L (14.0-18.0) g/dL Hct 33.2 L (42-52) % MCV 93.8 (80-100) fL MCH 30.2 (25-34) pg MCHC 32.2 (32-36) g/dL RDW Std Deviation 47.6 H (36.4-46.3) fL RDW Coeff of Shilpa 13.9 (11.5-14.5) % Plt Count 208 (130-400) K/uL MPV 10.2 (7.4-10.4) fL Immature Gran % (Auto) 0.2 % Neut % (Auto) 67.9 % Lymph % (Auto) 16.4 % Rich % (Auto) 14.0 % Eos % (Auto) 1.3 % Baso % (Auto) 0.2 % Immature Gran # (Auto) 0.02 (0.00-0.02) K/uL Neut # (Auto) 5.59 (1.4-6.5) K/uL Lymph # (Auto) 1.35 (1.2-3.4) K/uL Rich # (Auto) 1.15 H (0.11-0.59) K/uL Eos # (Auto) 0.11 (0-0.5) K/uL Baso # (Auto) 0.02 (0-0.2) K/uL Sodium 139 (136-145) mmol/L Potassium 3.7 (3.5-5.1) mmol/L Chloride 103 (98-107) mmol/L Carbon Dioxide 28 (21-32) mmol/L Anion Gap 8.0 (3-11) BUN 20 H (7-18) mg/dl Creatinine 1.29 (0.6-1.4) mg/dl Est Cr Clr Drug Dosing 56.4 ml/min Est GFR ( Amer) 61.1 Est GFR (Non-Af Amer) 52.8 BUN/Creatinine Ratio 15.2 (10-20) Glucose 87 (70-99) mg/dl POC Glucose 147 H (70-99) Calcium 8.5 (8.5-10.1) mg/dl Phosphorus 3.6 (2.5-4.9) mg/dl Magnesium 1.8 (1.8-2.4) mg/dl 12/31/18 12/31/18 12/31/18 Range/Units 21:44 16:40 11:48 WBC (4.8-10.8) K/uL RBC (4.7-6.1) M/uL Hgb (14.0-18.0) g/dL Hct (42-52) % MCV (80-100) fL MCH (25-34) pg MCHC (32-36) g/dL RDW Std Deviation (36.4-46.3) fL RDW Coeff of Shilpa (11.5-14.5) % Plt Count (130-400) K/uL MPV (7.4-10.4) fL Immature Gran % (Auto) % Neut % (Auto) % Lymph % (Auto) % Rich % (Auto) % Eos % (Auto) % Baso % (Auto) % Immature Gran # (Auto) (0.00-0.02) K/uL Neut # (Auto) (1.4-6.5) K/uL Lymph # (Auto) (1.2-3.4) K/uL Rich # (Auto) (0.11-0.59) K/uL Eos # (Auto) (0-0.5) K/uL Baso # (Auto) (0-0.2) K/uL Sodium (136-145) mmol/L Potassium (3.5-5.1) mmol/L Chloride (98-107) mmol/L Carbon Dioxide (21-32) mmol/L Anion Gap (3-11) BUN (7-18) mg/dl Creatinine (0.6-1.4) mg/dl Est Cr Clr Drug Dosing ml/min Est GFR ( Amer) Est GFR (Non-Af Amer) BUN/Creatinine Ratio (10-20) Glucose (70-99) mg/dl POC Glucose 88 106 H 96 (70-99) Calcium (8.5-10.1) mg/dl Phosphorus (2.5-4.9) mg/dl Magnesium (1.8-2.4) mg/dl Diagnostic Findings KUB reviewed,agree with report: XR KUB/Abdomen 1 view CLINICAL HISTORY: colonic ileus. Measure colon diameter COMPARISON STUDY: 12/31/2018 FINDINGS: There is gaseous distention of the stomach. There is gas present within colonic and small bowel loops. The colon measures 5.5 cm in transverse diameter. IMPRESSION: 1. Decreased colonic distention. The colon measures 5.5 cm in transverse diameter 2. Increasing gastric distention PG Care Time/CCT Total # of Minutes Spent Total Time Spent with Patient: Total time spent is greater than 50% in coordination of care (as documented) at patient's floor/unit and/or counseling patient: (1) Diabetes Diabetes mellitus complication status: without complication Diabetes mellitus meterman insulin use: without nursing home use Diabetes mellitus type: type 2 Qualified Code(s): E11.9 - Type 2 diabetes mellitus without complications (2) Gout Chronicity: unspecified Gout etiology: unspecified cause Gout site: unspecified site Qualified Code(s): M10.9 - Gout, unspecified (3) Hyperlipidemia Hyperlipidemia type: unspecified Qualified Code(s): E78.5 - Hyperlipidemia, unspecified (4) Peripheral neuropathy Peripheral neuropathy type: polyneuropathy, unspecified Qualified Code(s): G62.9 - Polyneuropathy, unspecified (5) Altered mental status Altered mental status type: unspecified Qualified Code(s): R41.82 - Altered mental status, unspecified (6) Hypertension Hypertension type: essential hypertension Qualified Code(s): I10 - Essential (primary) hypertension
[2019-01-01] MEDS ORDERED: CALCIUM CARBONATE 500 MG CHEWABLE TAB PO PRN (10:07)
[2019-01-01] MEDS: ATORVASTATIN 40 MG TAB PO SCH (21:25)
[2019-01-01] MEDS: BISACODYL 5 MG TABEC PO SCH (21:25)
[2019-01-01] MEDS: CARBIDOPA/LEVODOPA 25/100MG EXT REL TAB PO SCH (21:27)
--- NOTE | 2019-01-02 07:22 | XRay Report ---
XR KUB/Abdomen 1 view CLINICAL HISTORY: measure colonic dilation if present COMPARISON STUDY: 01/01/2019 FINDINGS: Moderate increase in colonic distention. Gastric distention is diminished. Diameter of the sigmoid colon is 9.5 cm. Maximum dimension at the splenic flexure is 10 cm. IMPRESSION: 1. Mild general increase in air-filled distention of the colon 2. Maximum diameters of splenic flexure at 10 cm. 3. Interval resolution of the gastric distention. The above report was generated using voice recognition software. It may contain grammatical, syntax or spelling errors. Electronically signed by: Tom Auguste M.D. 01/02/2019 7:21 AM
[2019-01-02 08:33] LABS: Basophils # (auto) 0.01 K/uL (0-0.2); Basophils % (auto) 0.1 %; Eosinophils # (auto) 0.13 K/uL (0-0.5); Eosinophils % (auto) 1.8 %; Hematocrit (blood only) 31.3 % (42-52); Hemoglobin 10.1 g/dL (14.0-18.0); Immature Granulocytes # (auto) 0.01 K/uL (0.00-0.02); Immature Granulocytes % (auto) 0.1 %; Lymphocytes # (auto) 1.77 K/uL (1.2-3.4); Mean Corpuscular Hgb Conc 32.3 g/dL (32-36); Mean Corpuscular Volume 93.2 fL (80-100); Mean Platelet Volume 10.2 fL (7.4-10.4); Monocytes # (auto) 0.96 K/uL (0.11-0.59); Platelet Count 205 K/uL (130-400); RDW Coefficient of Variation 13.9 % (11.5-14.5); RDW Standard Deviation 47.1 fL (36.4-46.3); Red Blood Count 3.36 M/uL (4.7-6.1); White Blood Count 7.38 K/uL (4.8-10.8)
[2019-01-02 09:02] LABS: BUN Creatinine Ratio 14.6 (10-20); Calcium 8.5 mg/dl (8.5-10.1); Est GFR (African American) 52.2; Magnesium 2.2 mg/dl (1.8-2.4)
[2019-01-02 09:11] LABS: Phosphorus 2.9 mg/dl (2.5-4.9)
[2019-01-02] MEDS: METOPROLOL SUCC 25MG EXT REL TAB PO SCH (09:20)
[2019-01-02] MEDS: GABAPENTIN 300 MG CAP PO SCH (09:20)
[2019-01-02] MEDS: CARBIDOPA/LEVODOPA 25/100MG TAB PO SCH ×3 (09:20→15:02)
[2019-01-02] MEDS: LISINOPRIL 2.5 MG TAB PO SCH (09:21)
[2019-01-02] MEDS: SERTRALINE HCL 50 MG TABLET PO SCH (09:21)
[2019-01-02] MEDS: POLYETHYLENE (MIRALAX) 17 GM PACK PO SCH ×2 (09:22→13:12)
[2019-01-02] MEDS: CYANOCOBALAMIN 500 MCG TABLET (VITAMIN B-12) PO SCH (09:22)
[2019-01-02] MEDS: CHOLECALCIFEROL 1,000 UNITS TAB PO SCH (09:22)
[2019-01-02] MEDS: ASPIRIN 81 MG ECTAB PO SCH (09:23)
[2019-01-02] MEDS: INSULIN ASPART 100 UNITS/ML 3 ML PEN SC SCH ×2 (09:27→13:11)
--- NOTE | 2019-01-02 10:34 | Discharge Summary ---
Date of Service January 02, 2019 Admission HPI Per Admitting Provider Kendell Montalvo is a 78yo C male with multiple medical problems to include PD, DM, HTN, CAD s/p STEMI in Apr 2018, Gout. He was recently hospitalized in August 2018 with hallucinations, gait abnormality, cellulitis and ileus. Patient lives at home. He has family in the home that assists him with ADLs. He presents today with his son and daughter with complaints of altered mental status, progressive somnolence since Sunday as well as abdominal discomfort, dyspepsia/nausea. Poor po intake. Constipation - last BM and flatus was yesterday afternoon. He had some abdominal distention earlier today which as resolved. No additional complaints at this time. No CP/palpitations/cough/SOB. No nausea at present. Mental status improved with IVF. ER Course: NSS Principal Diagnosis Ileus, Acute metabolic encephalopathy, BRIAN, dehydration Discharge Exam Constitutional well developed (sitting in bed, interactive) and + obese; no acute distress Neck trachea midline, no thyromegaly (cannot extend the neck) Respiratory normal respiratory effort, lungs clear to auscultation Cardiovascular RRR, no murmur, no edema Gastrointestinal (Abdomen) normal bowel sounds, soft, nontender, no hepatosplenomegaly Inspection/Auscultation: + abdomen distended (mildly) and normal bowel sounds Musculoskeletal Extremities: extremities normal to inspection; no cyanosis and no clubbing Skin no rashes, warm and dry Neurologic moves all extremities and awake Motor/Sensory: no tremor Psychiatric A+Ox3, euthymic affect Orientation: alert and cooperative Discharge Data Allergies Allergy/AdvReac Type Severity Reaction Status Date / Time tramadol AdvReac Severe Confusion Unverified 12/30/18 20:06 Consultations 12/30/18 22:17 ED Decision to Admit Stat 12/31/18 14:35 Consult Gastroenterology Routine Ordered Studies 12/30/18 19:00 CT abd pelvis IV con only Stat CT head/brain wo con Stat KUB x 3 Hospital Course (1) Altered mental status: Patient with increased somnolence and decreased PO intake, 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 Mental status has improved with administration of IVF and i snow back to baseline. Was likely secondary to dehydration given BRIAN, or possible ileus (2) Ileus: Patient with history of the same and has chronically distended colon on imaging with narrowing at his colonic anastamosis site -moved bowels multiple times daily with aggressive bowel regimen KUB remains with intermittent colonic distension but is chronic issue, gastri distension on imaging now resolved -consulted GI--> appreciate recommendations to stop meds if possible that can worsen ileus--> cannot stop Sinemet as per daughter -did hold allopurinol but worry about getting gout attack as he is high risk for this -daughter ok with decreasing gabapentin--> decreased down to 300mg bid for now and further wean after that if no return of paresthesias or pain as per PCP preference -continue Bisacodyl NJ daily prn bloating at home-Rx given on dc -continue po bisacodyl hs, Miralax increased to tid by GI -no need for scope -adv diet to regular (3) Parkinson's disease: Progressive disease. Patient was recently admitted with worsening gait and hallucinations but these are chronic. He is on Carbidopa/Levodopa. Follows with Neurology -Continue Sinemet at home dosage-times of admin are 0730/1130/1500 for daytime doses, then at 1900 and then XR version at 2300 -Delirium prevention strategies -follows with Dr. Soriano at [facility] (4) Pseudoobstruction of colon: as above, chronically distended colon on imaging, frequent ileus -continue aggressive bowel regimen as above -secondary to h/o bowel surgeries and PD, medication side effect (5) History of coronary artery disease: Patient s/p STEMI in April 2018. No stent was placed. Presently without CP. No EKG evidence of ischemia. -Continue ASA and Toprol -restart Plavix -ws held x 2 days in case needed scope -continue statin (6) Gout: No acute flare in many years -held Allopurinol as can contribute to ileus as per GI, but will restart on dc as above (7) Hypertension: Blood pressure controlled -continue home Lisinopril and metoprolol (8) Diabetes: Well controlled on Metformin -restart metformin after dc (9) Ischemic cardiomyopathy: With h/o STEMI 2017 LVEF 30-35% in 08/2018 on ECHO Not volume overloaded, is currently now euvolemic after gentle IVFs since admission -continue metoprolol,lisinopril - dcd IVFs, no diuretics needed -add EUSEBIO hose to home regimen-advised daughter of this (10) LEN on CPAP: continue CPAP qhs (11) Major depressive disorder: stable -continue sertraline 75mg daily (12) History of hemicolectomy: for h/o volvulus in 2017 (13) Hyperlipidemia: Chronic -continue statin (14) Peripheral neuropathy: chronic -Continue home Neurontin but will be lowering dose as can contribute to ileus- changed to 300mg bid (15) CKD (chronic kidney disease) stage 3, GFR 30-59 ml/min: GFR<60 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 -avoid nephrotoxins -renally dose meds when appropriate (16) 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, 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 1.1 -improved to 1.29 after IVFs on admission, now at 1.4 on day of dc -follow BMP as outpt (17) DVT prophylaxis: BILLY Garridos provided Dispo-stable for discharge to home, is able to ambulate in halls here and daughter provides 24/7 care Total Time Total Time Spent Total Time Spent (In Minutes): >30 min Total Time Includes: Examination of the Patient, Discharge Planning and Medication Reconciliation Discharge Plan Discharge Items Patient Disposition: Home - Home Health Services Reason For Visit: UNRESPONSIVE Discharge Diagnosis: Ileus, dehyration Condition: Good Discharge Goals: Decrease discomfort, Diagnostic testing and Therapeutic inte rvention Activity: Resume your previous activity Bathing: No limitations Non-emergency contact: Primary Care Provider Call non-emergency contact if: you have any medication questions and your symptoms worsen Follow-up/Referrals: Nataly Davis MD [Primary Care Provider] - Diet: Carb Consistent or DM2 and Heart Healthy Addtl Provider Instructions: You were admitted with an ileus due to not moving your bowels well enough. You were dehydrated as well. Please use the Bisacodyl suppositories if you feel bloated or indigestion. Your Miralax was increased to three times a day. Gabapentin was reduced to twice a day and can be further reduced as tolerated. Please follow up with your primary care provider within 1 week. Prescriptions: New bisacodyl 10 mg suppository 10 mg NJ DAILY PRN (Reason: constipation) Qty: 5 RF: 0 Continued atorvastatin [Lipitor] 80 mg tablet 80 mg PO HS RF: 0 metformin 500 mg tablet 500 mg PO BID RF: 0 clopidogrel 75 mg tablet 75 mg PO QAM RF: 0 aspirin 81 mg tablet,delayed release (DR/EC) 81 mg PO QAM RF: 0 ranitidine HCl 150 mg tablet 150 mg PO BID RF: 0 allopurinol 300 mg tablet 300 mg PO QAM RF: 0 bisacodyl [Dulcolax (bisacodyl)] 5 mg tablet,delayed release (DR/EC) PO HS RF: 0 metoprolol succinate 25 mg tablet extended release 24 hr 25 mg PO QAM RF: 0 sertraline 50 mg tablet 50 mg PO QAM RF: 0 cyanocobalamin (vitamin B-12) [Vitamin B-12] 2,000 mcg Tablet Extended Release 2,000 mcg PO QAM RF: 0 cholecalciferol (vitamin D3) [Vitamin D3] 1,000 unit Tablet 1,000 unit PO QAM RF: 0 carbidopa-levodopa 25-100 mg tablet 2 tab PO TID RF: 0 lisinopril 2.5 mg tablet 2.5 mg PO QAM RF: 0 carbidopa-levodopa 25-100 mg tablet extended release 1 tab PO HS RF: 0 carbidopa-levodopa [Sinemet] 25-100 mg tablet 1 tab PO .DAILY @ 1900 RF: 0 sertraline 25 mg tablet 25 mg PO QAM Qty: 0 RF: 0 Changed gabapentin 300 mg capsule 300 mg PO BID Qty: 120 RF: 5 polyethylene glycol 3350 17 gram powder in packet 1 dose PO TID Qty: 0 RF: 0 Stand-Alone Forms: Replaced By [facility] Discharge Orders: Discharge Order (Routine); Ordered 01/02/19 Ordered By: Carmen Simmons Admission Data Admit Date/Time: 12/30/18 23:23 Attending Provider: Carmen Simmons Admit Provider: Maty Nichols Primary Care Provider: Nataly Davis Other Providers: Maty Nichols ; Mable Singh Service: Telemetry Other Pending Studies at Discharge: Yes (Final blood culture result-no growth to date)
--- NOTE | 2019-01-02 11:29 | Gastroenterology Progress Note ---
Date of Service January 02, 2019 Assessment & Plan (1) Pseudoobstruction of colon: 78 year old male w/ PD admitted w/ colonic ileus, clinically feeling well, passing BMs, and tolerating liquid diet. Though X-ray with larger colon diameter today (10cm), this is very likely chronic, low risk for perforation and does not preclude discharge today. DC Daily KUBs Home laxative regime: TID Miralax Dulcolax tab p-o BID prn Dulcolax suppositories No current indication for endoscopic evaluation Supervising Physician Co-Signing Physician Notes I have seen and examined the patient and discussed the management with TRAVIS Pinto. 78 yo male with parkinsons and chronic colonic ileus (baseline colon distension appears to be around 9 cm). He is moving his bowels and passing gas, with a soft abdomen. His neurologic status appears to be back to his baseline. He is tolerating po. Agree with further plan of care as per Chandler's assessment and plan. Subjective Pt was seen and evaluated, chart reviewed. Daughter at bedside. Just finished breakfast. Answering questions appropriately. Tolerated 100% (full liquids). No nausea, vomiting. No abdominal pain. Most recent BM yesterday, brown, loose. KUB 10 cm colon diameter today but pt feels well and looks well. Daughter feels comfortable with pt discharge today. Review of Systems Constitutional: awake, alert, oriented, comfortable, eating Gastrointestinal: + diarrhea/loose stools (most recent BM yesterday, loose. ); no abdominal pain, no nausea, no vomiting and no blood in stools Neurologic: no tremor(s) Endocrine: + fatigue (much improved - "back to himself" per daughter) Physical Exam Constitutional: WD/WN, vitals as above + obese, cooperative and comfortable chronically ill appearing ENMT: external ear and nose normal, oropharynx normal Neck: trachea midline, no thyromegaly Respiratory: normal respiratory effort, lungs clear to auscultation Cardiovascular: RRR, no murmur, no edema Vessels: no JVD Extremities: no edema Gastrointestinal (Abdomen): Inspection/Auscultation: normal bowel sounds (no tympanic sounds); abdomen not distended Percussion/Palpation: abdomen soft; abdomen nontender (no pt c/o tenderness on deep palpation of the entire abdomen) active BS, without tympany throughout Skin: no rashes, warm and dry no jaundice Neurologic: awake (awakens with tactile and verbal stimulation, but typically eyes closed) Motor/Sensory: no tremor (very tremulous/jerky motions with arms. ) Psychiatric: A+Ox3, euthymic affect (slightly dull affect but verbal, interactive) Eye Contact: good eye contact Results & Data Vital Signs (Past 12 Hours) Vital Signs Temp Pulse Pulse Resp BP BP Pulse Ox 01/02/19 10:42 36.3 C L 61 56 L 18 157/64 H 122/54 L 95 01/02/19 07:21 36.3 C L 56 L 18 157/64 H 95
== END 2019-01-02 16:41 | disposition home health service (06) | DRG 388 ==
LOC: ED 18:53 → 2E 23:23 → SUATTDRO 23:23 → 2E 12-31 00:43 → 3N 01-01 11:50
DX: N18.3 Chronic kidney disease, stage 3 (moderate); Z79.84 Long term (current) use of oral hypoglycemic drugs; E86.0 Dehydration; M10.9 Gout, unspecified; I25.10 Atherosclerotic heart disease of native coronary artery without angina pectoris; G20 Parkinson's disease; E11.51 Type 2 diabetes mellitus with diabetic peripheral angiopathy without gangrene; F41.9 Anxiety disorder, unspecified; Z87.891 Personal history of nicotine dependence; N17.9 Acute kidney failure, unspecified; I12.9 Hypertensive chronic kidney disease with stage 1 through stage 4 chronic kidney disease, or unspecified chronic kidney disease; I25.5 Ischemic cardiomyopathy; K56.7 Ileus, unspecified; Z96.651 Presence of right artificial knee joint; I25.2 Old myocardial infarction; G93.41 Metabolic encephalopathy; G47.33 Obstructive sleep apnea (adult) (pediatric); E78.5 Hyperlipidemia, unspecified; E11.42 Type 2 diabetes mellitus with diabetic polyneuropathy